=== PATIENT | female | born 2000 | race Hispanic/Latino ===

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

== ENCOUNTER 2021-04-18 20:17 | Emergency (ER) | payer SELFPAY ==
[2021-04-18 21:32] LABS: Urine Blood Negative (Negative); Urine Glucose Negative (Negative); Urine Protein Negative (Negative); Urine Specific Gravity 1.015 (1.005-1.030)
[2021-04-18] MEDS ORDERED: NA CHLORIDE 0.9% 1,000 ML ONE (22:03)
[2021-04-18] MEDS ORDERED: FAMOTIDINE 20 MG/2 ML VIAL IV ONE (22:03)
[2021-04-18] MEDS ORDERED: ONDANSETRON 4 MG/2 ML VIAL ONE (22:03)
[2021-04-18] MEDS ORDERED: MORPHINE 2 MG/ML SYR ONE (22:03)
[2021-04-18 22:20] LABS: Absolute Lymphocytes (CBC) 2.5 K/uL (0.7-4.9); Basophils % 0.5 % (0-1.3); Hematocrit 37.8 % (36.0-45.0); Lymphocytes % 23.8 % (15.3-44.8); MPV 9.2 fL (7.6-11.3); RBC Red Blood Cell Count 4.61 M/uL (3.86-4.86)
[2021-04-18 22:31] LABS: ALT/SGPT 26 U/L (12-78); AST/SGOT 13 U/L (15-37); Albumin 3.9 g/dL (3.4-5.0); Alkaline Phosphatase 63 U/L (45-117); BUN Blood Urea Nitrogen 9 mg/dL (7-18); Bicarbonate 28 mmol/L (21-32); Bilirubin Direct < 0.1 mg/dL (0-0.2); Bilirubin Total 0.3 mg/dL (0.2-1.0); Glucose Level 90 mg/dL (74-106); Lipase 58 U/L (73-393); Potassium 3.4 mmol/L (3.5-5.1); Protein, Total 8.4 g/dL (6.4-8.2); Sodium Level 142 mmol/L (136-145)
[2021-04-19 00:08] LABS: Urine Specific Gravity/Preg 1.015 (1.005-1.030)
--- NOTE | 2021-04-19 00:19 | ER ---
Nurse's Notes [facility] Name: Neva Reyes Age: 21 yrs Sex: Female : 2000 Arrival Date: 04/18/2021 Time: 20:18 Bed 23 Private MD: Diagnosis: Upper abdominal pain, unspecified;Ovarian Cyst;Proximal Phalanx Fracture, Left Second Toe Presentation: 04/18 20:34 Chief complaint: Patient states: mid and upper back pain x 3 days. Upper abdominal pain ca1 x 6 days. Headache and neck pain x 2 days, Denies injuries. Also wants 3rd digit of L foot checked, walked into a plastic container last night, now swelling and bruised. Coronavirus screen: Client denies travel out of the [place] in the last 14 days. headache, Client presents with at least one sign or symptom that may indicate coronavirus-19. Standard/surgical mask placed on the client. Provider contacted for isolation considerations. Ebola Screen: Patient negative for fever greater than or equal to 101.5 degrees Fahrenheit, and additional compatible Ebola Virus Disease symptoms Patient denies exposure to infectious person. Patient denies travel to an Ebola-affected area in the 21 days before illness onset. No symptoms or risks identified at this time. Initial Sepsis Screen: Does the patient meet any 2 criteria? No. Patient's initial sepsis screen is negative. Does the patient have a suspected source of infection? No. Patient's initial sepsis screen is negative. Risk Assessment: Do you want to hurt yourself or someone else? Patient reports no desire to harm self or others. Onset of symptoms was April 18, 2021. 20:34 Method Of Arrival: Ambulatory ca1 20:34 Acuity: HILDA 3 ca1 Triage Assessment: 04/19 00:34 General: Appears in no apparent distress. Behavior is calm, cooperative. 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 Flu vaccine is not up to date. - Social history:: Smoking status: Patient denies any tobacco usage or history of. Screenin:41 Abuse screen: Denies threats or abuse. Denies injuries from another. Nutritional iw screening: No deficits noted. Tuberculosis screening: No symptoms or risk factors identified. Fall Risk IV access (20 points). Assessment: 21:30 General: Appears in no apparent distress. Pain: Complains of pain in left foot and iw epigastric area. Neuro: Level of Consciousness is awake, alert, obeys commands, Oriented to person, place, time, situation, Moves all extremities. Full function. Cardiovascular: Patient's skin is warm and dry. Respiratory: Respiratory effort is even, unlabored, Respiratory pattern is regular, symmetrical. GI: Bowel sounds present X 4 quads. Abd is soft X 4 quads. Derm: Skin is intact, is healthy with good turgor. Musculoskeletal: Swelling present in left foot. 23:40 Reassessment: Patient appears in no apparent distress at this time. Patient and/or iw family updated on plan of care and expected duration. Pain level reassessed. Patient is alert, oriented x 3, equal unlabored respirations, skin warm/dry/pink. Patient states feeling better. Patient states symptoms have improved. Vital Signs: 20:34 BP 113 / 67; Pulse 90; Resp 16 S; Temp 97.5(TE); Pulse Ox 100% on R/A; Weight 90.72 kg ca1 (R); Height 5 ft. 3 in. (160.02 cm) (R); Pain 3/10; 20:34 Body Mass Index 35.43 (90.72 kg, 160.02 cm) ca1 ED Course: 20:18 Patient arrived in ED. am4 20:36 Triage completed. ca1 20:37 Arm band placed on left wrist. ca1 21:16 Brandi Benoit, RN is Primary Nurse. iw 21:17 Peter Bo MD is Attending Physician. mh7 21:30 Patient has correct armband on for positive identification. iw 22:14 Foot Left 3 View XRAY In Process Unspecified. EDMS 23:29 CT Abd/Pelvis - IV Contrast Only In Process Unspecified. EDMS 04/19 00:17 Joanne Luu MD is Referral Physician. mh7 00:17 Benito Jamil DPM is Referral Physician. 7 00:33 No provider procedures requiring assistance completed. IV discontinued, intact, iw bleeding controlled, No redness/swelling at site. Pressure dressing applied. Administered Medications: 04/18 21:45 Drug: NS 0.9% 1000 ml Route: IV; Rate: 1000 ml; Site: right antecubital; iw 21:45 Drug: Zofran (Ondansetron) 4 mg Route: IVP; Site: right antecubital; iw 22:00 Follow up: Response: No adverse reaction iw 21:50 Drug: morphine 2 mg Route: IVP; Site: right antecubital; iw 22:10 Follow up: Response: No adverse reaction; Pain is decreased iw 21:50 Drug: Pepcid (famotidine) 20 mg Route: IVP; Site: right antecubital; iw 22:00 Follow up: Response: No adverse reaction iw Outcome: 04/19 00:19 Discharge ordered by MD. menjivar 00:34 Patient left the ED. iw 00:34 Discharged to home ambulatory. iw 00:34 Condition: good 00:34 Discharge instructions given to patient, Instructed on discharge instructions, follow up and referral plans. medication usage, Demonstrated understanding of instructions, follow-up care, medications, Prescriptions given X 4. Signatures: Dispatcher [employer] Brandi Carmen RN RN Evonne Medeiros RN RN ca1 Peter Bo MD MD Audra Baird [facility]
--- NOTE | 2021-04-19 00:19 | EDPHYS ---
Physician Documentation [facility] Name: Neva Reyes Age: 21 yrs Sex: Female : 2000 Arrival Date: 04/18/2021 Time: 20:18 Bed 23 Private MD: ED Physician Peter Bo HPI: 04/18 22:56 This 21 yrs old Female presents to ER via Ambulatory with complaints of mh7 Abdominal Pain, Back Pain, Headache. 22:58 The patient presents with abdominal pain in the epigastric area, in the left lower mh7 quadrant. Onset: The symptoms/episode began/occurred 6 day(s) ago. The symptoms radiate to the right flank. 22:59 Associated signs and symptoms: Pertinent positives: diarrhea, headache, nausea, mh7 Pertinent negatives: anorexia, blood in stools, chest pain, constipation, fever, hematuria, palpitations, shortness of breath, vaginal discharge, vomiting, vomiting blood. The symptoms are described as intermittent, vague, waxing/waning. Modifying factors: The symptoms are alleviated by nothing, the symptoms are aggravated by nothing. Severity of pain: At its worst the pain was moderate 3 day(s) ago, in the emergency department the pain has improved moderately. States symptoms started about 6 days ago. Abdominal pain, nausea, back pain, headaches. Headache have resolved and most of back pain.. 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 Flu vaccine is not up to date. - Social history:: Smoking status: Patient denies any tobacco usage or history of. ROS: 22:59 Constitutional: Negative for fever, chills, and weight loss, Eyes: Negative for injury, mh7 pain, redness, and discharge, ENT: Negative for injury, pain, and discharge, Cardiovascular: Negative for chest pain, palpitations, and edema, Respiratory: Negative for shortness of breath, cough, wheezing, and pleuritic chest pain, : Negative for injury, bleeding, discharge, and swelling, Skin: Negative for injury, rash, and discoloration, Psych: Negative for depression, anxiety, suicide ideation, homicidal ideation, and hallucinations, Allergy/Immunology: Negative for hives, rash, and allergies, Endocrine: Negative for neck swelling, polydipsia, polyuria, polyphagia, and marked weight changes, Hematologic/Lymphatic: Negative for swollen nodes, abnormal bleeding, and unusual bruising. 22:59 MS/extremity: Positive for Left foot 2nd toe injury yesterday after accidentally hitting against furniture.. Exam: 22:59 Constitutional: This is a well developed, well nourished patient who is awake, alert, mh7 and in no acute distress. Head/Face: Normocephalic, atraumatic. Eyes: Pupils equal round and reactive to light, extra-ocular motions intact. Lids and lashes normal. Conjunctiva and sclera are non-icteric and not injected. Cornea within normal limits. Periorbital areas with no swelling, redness, or edema. ENT: Nares patent. No nasal discharge, no septal abnormalities noted. Tympanic membranes are normal and external auditory canals are clear. Oropharynx with no redness, swelling, or masses, exudates, or evidence of obstruction, uvula midline. Mucous membranes moist. Neck: Trachea midline, no thyromegaly or masses palpated, and no cervical lymphadenopathy. Supple, full range of motion without nuchal rigidity, or vertebral point tenderness. No Meningismus. Chest/axilla: Normal chest wall appearance and motion. Nontender with no deformity. No lesions are appreciated. Cardiovascular: Regular rate and rhythm with a normal S1 and S2. No gallops, murmurs, or rubs. Normal PMI, no JVD. No pulse deficits. Respiratory: Lungs have equal breath sounds bilaterally, clear to auscultation and percussion. No rales, rhonchi or wheezes noted. No increased work of breathing, no retractions or nasal flaring. 22:59 Skin: Warm, dry with normal turgor. Normal color with no rashes, no lesions, and no evidence of cellulitis. Neuro: Awake and alert, GCS 15, oriented to person, place, time, and situation. Cranial nerves II-XII grossly intact. Motor strength 5/5 in all extremities. Sensory grossly intact. Cerebellar exam normal. Normal gait. Psych: Awake, alert, with orientation to person, place and time. Behavior, mood, and affect are within normal limits. 22:59 Abdomen/GI: Inspection: abdomen appears normal, Bowel sounds: normal, in all quadrants, Palpation: moderate abdominal tenderness, in the epigastric area and left lower quadrant, mass, is not appreciated, rebound tenderness, is not appreciated, voluntary guarding, is not appreciated, involuntary guarding, is not appreciated, no appreciated organomegaly, Rectal exam: the exam is deferred, because of patient request, Indicators: McBurney's point is not tender, Freeman's sign is negative, Rovsing's sign is negative, Obturator sign is negative, Psoas sign is negative, Liver: no appreciated palpable abnormalities, Hernia: not appreciated. 22:59 Back: normal spinal alignment noted, CVA tenderness, that is mild, is noted on the right, muscle spasm, is not present. 22:59 Musculoskeletal/extremity: Extremities: noted in the left foot 2nd toe: ecchymosis, pain, swelling, tenderness, ROM: intact in all extremities, Circulation is intact in all extremities. Sensation intact. Compartment Syndrome exam of affected extremity: is normal. no numbness, no tingling, no sensation deficit, no palor, no weak pulses, Joints: All joints appear normal with full range of motion. Weight bearing: able to fully bear weight, without difficulty, Tendon exam: specific tendon testing normal through active and passive range of motion Vital Signs: 20:34 BP 113 / 67; Pulse 90; Resp 16 S; Temp 97.5(TE); Pulse Ox 100% on R/A; Weight 90.72 kg ca1 (R); Height 5 ft. 3 in. (160.02 cm) (R); Pain 3/10; 20:34 Body Mass Index 35.43 (90.72 kg, 160.02 cm) ca1 MDM: 04/19 00:15 Differential diagnosis: bowel obstruction, diverticulitis, gastritis, gastroesophageal mh7 reflux disease, non-specific abd pain, Pyelonephritis, Ureterolithiasis, urinary tract infection. Data reviewed: vital signs, nurses notes, old medical records, lab test result(s), CBC, electrolytes, urinalysis, UPT: negative radiologic studies, CT scan. Data interpreted: Pulse oximetry: on room air is 100 %. Interpretation: normal. Counseling: I had a detailed discussion with the patient and/or guardian regarding: the historical points, exam findings, and any diagnostic results supporting the discharge/admit diagnosis, lab results, radiology results, the need for outpatient follow up, an cooper helper, an OB/Gyne specialist, to return to the emergency department if symptoms worsen or persist or if there are any questions or concerns that arise at home. Response to treatment: the patient's symptoms have resolved after treatment, the patient's blood pressure is in an acceptable range, mental status has returned to baseline, the patient no longer shows bradycardia, the patient is not short of breath, the patient is not tachycardic, the patient's pain is gone, the patient's temperature has normalized. 00:19 Patient medically screened. [facility] 04/18 21:31 Order name: Urine Dipstick-Ancillary; Complete Time: 21:35 [facility] 04/18 21:32 Order name: Urine --Ancillary (enter results) [facility] 04/18 21:33 Order name: Urine --Ancillary [facility] 04/18 21:36 Order name: Basic Metabolic Panel [facility] 04/18 21:36 Order name: CBC with Diff [facility] 04/18 21:36 Order name: Hepatic Function; Complete Time: 22:57 [facility] 04/18 21:36 Order name: Lipase; Complete Time: 22:57 [facility] 04/18 21:37 Order name: Foot Left 3 View XRAY [facility] 04/18 21:37 Order name: Basic Metabolic Panel; Complete Time: 22:57 [facility] 04/18 21:37 Order name: CBC with Automated Diff; Complete Time: 22:57 [facility] 04/18 22:57 Order name: CT Abd/Pelvis - IV Contrast Only [facility] 04/18 21:32 Order name: Urine Test (obtain specimen); Complete Time: 21:32 [facility] 04/18 21:36 Order name: IV Saline Lock; Complete Time: 22:02 [facility] 04/18 21:36 Order name: Labs collected and sent; Complete Time: 22:02 [facility] 04/19 00:06 Order name: Orthopedic shoe; Complete Time: 00:34 [facility] Administered Medications: 04/18 21:45 Drug: NS 0.9% 1000 ml Route: IV; Rate: 1000 ml; Site: right antecubital; iw 21:45 Drug: Zofran (Ondansetron) 4 mg Route: IVP; Site: right antecubital; iw 21:50 Drug: morphine 2 mg Route: IVP; Site: right antecubital; iw 21:50 Drug: Pepcid (famotidine) 20 mg Route: IVP; Site: right antecubital; iw Disposition: 04/19/21 00:19 Discharged to Home. Impression: Upper abdominal pain, unspecified, Ovarian Cyst, Proximal Phalanx Fracture, Left Second Toe. - Condition is Stable. - Discharge Instructions: Toe Fracture, [id number], Abdominal Pain, Adult, [id number]-[id number], Ovarian Cyst, [id number]. - Prescriptions for Zofran ODT 4 mg Oral tablet,disintegrating - place 1 tablet by TRANSLINGUAL route every 8 hours As needed; 6 tablet. Bentyl 20 mg Oral Tablet - take 1 tablet by ORAL route every 6 hours As needed; 20 tablet. Ibuprofen 800 mg Oral Tablet - take 1 tablet by ORAL route every 8 hours As needed take with food; 15 tablet. Tylenol- Codeine #3 300-30 mg Oral Tablet - take 2 tablets by ORAL route every 6 hours As needed; 20 tablet. - Medication Reconciliation Form, Thank You Letter, Antibiotic Education, Prescription Opioid Use form. - Follow up: Private Physician; When: 1 - 2 days; Reason: Worsening of condition, Recheck today's complaints, Continuance of care, Re-evaluation by your physician. Follow up: Joanne Luu MD; When: 1 - 2 days; Reason: Worsening of condition, Recheck today's complaints. Follow up: Benito Jamil DPM; When: 1 - 2 days; Reason: Worsening of condition, Recheck today's complaints. - Problem is new. - Symptoms have improved. Signatures: Dispatcher [employer] EDBrandi Mcallister RN RN iw Mala, SUSY Douglass RN ca1 Peter Bo MD MD mh7 Trim, Aurelio tt3 Corrections: (The following items were deleted from the chart) 04/19 00:34 00:19 04/19/2021 00:19 Discharged to Home. Impression: Upper abdominal pain, iw unspecified; Ovarian Cyst; Proximal Phalanx Fracture, Left Second Toe. Condition is Stable. Forms are Medication Reconciliation Form, Thank You Letter, Antibiotic Education, Prescription Opioid Use. Follow up: Private Physician; When: 1 - 2 days; Reason: Worsening of condition, Recheck today's complaints, Continuance of care, Re-evaluation by your physician. Follow up: Joanne Luu; When: 1 - 2 days; Reason: Worsening of condition, Recheck today's complaints. Follow up: Benito Jamil; When: 1 - 2 days; Reason: Worsening of condition, Recheck today's complaints. Problem is new. Symptoms have improved. mh7
[2021-04-19 00:48] VITALS: BP 113/67; TEMP 97.5; O2SAT 100
--- NOTE | 2021-04-19 08:55 | RAD REPORT ---
EXAM DESCRIPTION: RAD - Foot Left 3 View - 04/18/2021 10:14 pm CLINICAL HISTORY: traumaleft foot pain COMPARISON: No comparisons FINDINGS: An oblique fracture is present involving the head and distal shaft of the second proximal phalanx. No measurable distraction or angulation component. The remaining phalanges show no acute finding. Remainder the foot also without acute finding. No air or foreign body in the soft tissues. IMPRESSION: Fracture of the second proximal phalanx left foot as detailed.
--- NOTE | 2021-04-20 11:31 | RAD REPORT ---
EXAM DESCRIPTION: CT - Abdomen Pelvis W Contrast - 04/19/2021 3:21 am CLINICAL HISTORY: The patient is 21 years old and is Female; Abd pain;Flank pain TECHNIQUE: Axial computed tomography images of the abdomen and pelvis with intravenous contrast. S agittal and coronal reformatted images were created and reviewed. This CT exam was performed using one or more of the following dose reduction techniques: automated exposure control, adjustment of t he mA and/or kV according to patient size, and/or use of iterative reconstruction technique. DLP: 1033 mGy*cm COMPARISON: CT abdomen and pelvis dated December 28, 2020. FINDINGS: LUNG BASES: Lung bases are clear. HEART: Visualized heart is normal. ABDOMEN: LIVER: Unremarkable. No mass. GALLBLADDER AND BILE DUCTS: Unremarkable. No calcified stones. No ductal dilation. PANCREAS: Unremarkable. No mass. No ductal dilation. SPLEEN: Unremarkable. No splenomegaly. ADRENALS: Unremarkable. No mass. KIDNEYS AND URETERS: Unremarkable. No solid mass. No hydronephrosis. STOMACH AND BOWEL: Unremarkable. No obstruction. No mucosal thickening. PELVIS: APPENDIX: The appendix is seen and is within normal limits. BLADDER: Bladder is decompressed. REPRODUCTIVE: Unremarkable as visualized. ABDOMEN and PELVIS: INTRAPERITONEAL SPACE: Left ovarian cyst measuring approximately 5.2 cm. Small amount of free pelvi c fluid. No free air. BONES/JOINTS: No acute fracture. No dislocation. SOFT TISSUES: Unremarkable. VASCULATURE: Unremarkable. No abdominal aortic aneurysm. LYMPH NODES: Unremarkable. No enlarged lymph nodes. IMPRESSION: 1. No acute abdominal abnormality. 2. Left ovarian cyst measuring approximately 5.2 cm which was present on prior exam. Small amount of free pelvic fluid. Recommend follow-up pelvic US in 6-12 weeks. Reference: J Am Ladonna Radiol 2013; 10:675-681. Electronically signed by: Anthony Mccormack DO 04/18/2021 11:39 PM CDT Due to temporary technical issues with the PACS/Fluency reporting system, reports are being signed by the in house radiologists without review as a courtesy to insure prompt reporting. The interpreting radiologist is fully responsible for the content of the report.
== END 2021-04-19 00:34 | disposition home or self-care (01) ==
LOC: ER 20:17
DX: N83.209 Unspecified ovarian cyst, unspecified side (principal); S92.512A Displaced fracture of proximal phalanx of left lesser toe(s), initial encounter for closed fracture; W22.03XA Walked into furniture, initial encounter
CPT/HCPCS: 36415; 74177; 80048; 80076; 81003; 81025; 83690; 85025; 96374; 96375; 99283; J2270; J2405; J7030; Q9967

== ENCOUNTER 2021-07-16 13:28 | Emergency (ER) | payer SELFPAY ==
--- OUTSIDE RECORDS SUMMARY | 2021-07-16 13:30 | XMS REPORT | Continuity of Care Document ---
:2000 Author Organization [facility] t Address [facility] [place] [id number] Care Team Providers Name Role Phone Unavailable Unavailable Unavailable Problems This patient has no known problems. Allergies, Adverse Reactions, Alerts This patient has no known allergies or adverse reactions. Medications This patient has no known medications. Procedures This patient has no known procedures. Results This patient has no known results.
[2021-07-16 14:56] LABS: Urine Blood Negative (Negative); Urine Glucose Negative (Negative); Urine Protein Negative (Negative); Urine Specific Gravity 1.015 (1.005-1.030)
[2021-07-16 15:31] LABS: Absolute Lymphocytes (CBC) 1.8 K/uL (0.7-4.9); Basophils % 0.3 % (0-1.3); Hematocrit 41.1 % (36.0-45.0); Lymphocytes % 37.9 % (15.3-44.8); MPV 8.4 fL (7.6-11.3)
[2021-07-16 15:54] LABS: ALT/SGPT 25 U/L (12-78); AST/SGOT 15 U/L (15-37); Albumin 3.6 g/dL (3.4-5.0); Alkaline Phosphatase 54 U/L (45-117); BUN Blood Urea Nitrogen 8 mg/dL (7-18); Bicarbonate 31 mmol/L (21-32); Bilirubin Direct 0.1 mg/dL (0-0.2); Bilirubin Total 0.3 mg/dL (0.2-1.0); Glucose Level 83 mg/dL (74-106); Lipase 103 U/L (73-393); Potassium 3.6 mmol/L (3.5-5.1); Protein, Total 7.8 g/dL (6.4-8.2); Sodium Level 142 mmol/L (136-145)
[2021-07-16] MEDS ORDERED: FAMOTIDINE 20 MG/2 ML VIAL IV ONE (15:56)
[2021-07-16] MEDS ORDERED: NA CHLORIDE 0.9% 500 ML ONE (15:56)
--- NOTE | 2021-07-16 15:58 | EDPHYS ---
Physician Documentation [facility] Name: Neva Reyes Age: 21 yrs Sex: Female : 2000 Arrival Date: 07/16/2021 Time: 13:32 Bed DIS3 Private MD: ED Physician Loco Lopez HPI: 07/16 15:25 This 21 yrs old Female presents to ER via Ambulatory with complaints of alysia Abdominal Pain, Nausea. 15:25 The patient presents to the emergency department with nausea, that is mild. Onset: The alysia symptoms/episode began/occurred 3 day(s) ago. Possible causes: unknown. The symptoms are aggravated by nothing. The symptoms are alleviated by nothing. Associated signs and symptoms: The patient has no apparent associated signs or symptoms. Severity of symptoms: At their worst the symptoms were moderate in the emergency department the symptoms are unchanged. The patient has not experienced similar symptoms in the past. 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 - Social history:: Smoking status: Patient denies any tobacco usage or history of. ROS: 15:25 Constitutional: Negative for fever, chills, and weight loss, Eyes: Negative for injury, alysia pain, redness, and discharge, ENT: Negative for injury, pain, and discharge, Neck: Negative for injury, pain, and swelling, Cardiovascular: Negative for chest pain, palpitations, and edema, Respiratory: Negative for shortness of breath, cough, wheezing, and pleuritic chest pain, Back: Negative for injury and pain, : Negative for injury, bleeding, discharge, and swelling, MS/Extremity: Negative for injury and deformity, Skin: Negative for injury, rash, and discoloration, Neuro: Negative for headache, weakness, numbness, tingling, and seizure, Psych: Negative for depression, anxiety, suicide ideation, homicidal ideation, and hallucinations, Allergy/Immunology: Negative for hives, rash, and allergies, Endocrine: Negative for neck swelling, polydipsia, polyuria, polyphagia, and marked weight changes, Hematologic/Lymphatic: Negative for swollen nodes, abnormal bleeding, and unusual bruising. 15:25 Abdomen/GI: Positive for abdominal pain, nausea, of the right upper quadrant and abdomen diffusely. Exam: 15:25 Constitutional: This is a well developed, well nourished patient who is awake, alert, alysia and in no acute distress. Head/Face: Normocephalic, atraumatic. Eyes: Pupils equal round and reactive to light, extra-ocular motions intact. Lids and lashes normal. Conjunctiva and sclera are non-icteric and not injected. Cornea within normal limits. Periorbital areas with no swelling, redness, or edema. ENT: Nares patent. No nasal discharge, no septal abnormalities noted. Tympanic membranes are normal and external auditory canals are clear. Oropharynx with no redness, swelling, or masses, exudates, or evidence of obstruction, uvula midline. Mucous membranes moist. Neck: Trachea midline, no thyromegaly or masses palpated, and no cervical lymphadenopathy. Supple, full range of motion without nuchal rigidity, or vertebral point tenderness. No Meningismus. Chest/axilla: Normal chest wall appearance and motion. Nontender with no deformity. No lesions are appreciated. Cardiovascular: Regular rate and rhythm with a normal S1 and S2. No gallops, murmurs, or rubs. Normal PMI, no JVD. No pulse deficits. Respiratory: Lungs have equal breath sounds bilaterally, clear to auscultation and percussion. No rales, rhonchi or wheezes noted. No increased work of breathing, no retractions or nasal flaring. Abdomen/GI: Soft, non-tender, with normal bowel sounds. No distension or tympany. No guarding or rebound. No evidence of tenderness throughout. Back: No spinal tenderness. No costovertebral tenderness. Full range of motion. Skin: Warm, dry with normal turgor. Normal color with no rashes, no lesions, and no evidence of cellulitis. MS/ Extremity: Pulses equal, no cyanosis. Neurovascular intact. Full, normal range of motion. Neuro: Awake and alert, GCS 15, oriented to person, place, time, and situation. Cranial nerves II-XII grossly intact. Motor strength 5/5 in all extremities. Sensory grossly intact. Cerebellar exam normal. Normal gait. Psych: Awake, alert, with orientation to person, place and time. Behavior, mood, and affect are within normal limits. Vital Signs: 13:45 BP 106 / 59; Pulse 79; Resp 16; Temp 97; Pulse Ox 99% ; Weight 93.89 kg; Height 5 ft. 3 sv in. (160.02 cm); 13:45 Body Mass Index 36.67 (93.89 kg, 160.02 cm) sv MDM: 14:40 Patient medically screened. [facility] 15:26 Differential diagnosis: Nonspecific abd pain, gastritis. Data reviewed: vital signs, [facility] nurses notes, lab test result(s), EKG, radiologic studies, plain films. 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 rate is 79 beats/min, rhythm is regular, Pulse oximetry: on room air is 99 %. Test interpretation: by ED physician or midlevel provider:. Counseling: I had a detailed discussion with the patient and/or guardian regarding: the historical points, exam findings, and any diagnostic results supporting the discharge/admit diagnosis, lab results. 07/16 14:41 Order name: Basic Metabolic Panel; Complete Time: 15:57 [facility] 07/16 14:41 Order name: CBC with Diff; Complete Time: 15:41 [facility] 07/16 14:41 Order name: Hepatic Function; Complete Time: 15:57 [facility] 07/16 14:41 Order name: Lipase; Complete Time: 15:57 [facility] 07/16 14:56 Order name: Urine Dipstick-Ancillary [facility] 07/16 14:58 Order name: Urine --Ancillary (enter results) [facility] 07/16 14:41 Order name: IV Saline Lock; Complete Time: 15:15 [facility] 07/16 14:41 Order name: Labs collected and sent; Complete Time: 14:57 [facility] 07/16 14:41 Order name: Urine Dipstick-Ancillary (obtain specimen); Complete Time: 15:15 [facility] 07/16 14:41 Order name: Urine Test (obtain specimen); Complete Time: 14:57 [facility] Administered Medications: 15:37 Drug: NS 0.9% 500 ml Route: IV; Rate: bolus; Site: right antecubital; zb 16:00 Follow up: Response: No adverse reaction; IV Status: Completed infusion; IV Intake: zb 500ml 15:37 Drug: Pepcid (famotidine) 20 mg Route: IVP; Site: right antecubital; zb 16:00 Follow up: Response: No adverse reaction zb Disposition Summary: 07/16/21 15:57 Discharge Ordered Location: Home [facility] Problem: new alysia Symptoms: have improved alysia Condition: Stable alysia Diagnosis - Functional dyspepsia alysia - Generalized anxiety disorder alysia Followup: alysia - With: Private Physician - When: 2 - 3 days - Reason: Recheck today's complaints, Continuance of care, Re-evaluation by your physician Followup: alysia - With: - When: 2 - 3 days - Reason: Recheck today's complaints, Re-evaluation by your physician Discharge Instructions: - Discharge Summary Sheet alysia - Gastritis, Adult alysia - Gastritis, Adult, [id number] alysia - Generalized Anxiety Disorder, Adult [facility] Forms: - Medication Reconciliation Form alysia - Thank You Letter alysia - Antibiotic Education [facility] - Prescription Opioid Use [facility] Prescriptions: - Hydroxyzine HCl 25 mg Oral Tablet - take 1 tablet by ORAL route every 6 hours As needed; 30 tablet; Refills: 0, [facility] Product Selection Permitted - Pepcid 20 mg Oral Tablet - take 1 tablet by ORAL route every 12 hours for 15 days; 30 tablet; Refills: 0, [facility] Product Selection Permitted Signatures: Dispatcher [employer] Karin Vasquez, Loco Obando RN, MD MD cha Brown, Zipporah, RN RN zb
--- NOTE | 2021-07-16 15:58 | ER ---
Nurse's Notes [facility] Name: Neva Reyes Age: 21 yrs Sex: Female : 2000 Arrival Date: 07/16/2021 Time: 13:32 Bed DIS3 Private MD: Diagnosis: Functional dyspepsia;Generalized anxiety disorder Presentation: 07/16 13:44 Chief complaint: Patient states: n/d, and anxiety x 2 days. "I think my stomach hurts sv because I have nervous stomach.". Coronavirus screen: Client denies travel out of the [place] in the last 14 days. At this time, the client does not indicate any symptoms associated with coronavirus-19. Ebola Screen: No symptoms or risks identified at this time. 13:44 Method Of Arrival: Ambulatory sv 13:45 Initial Sepsis Screen: Does the patient meet any 2 criteria? No. Patient's initial sv sepsis screen is negative. Does the patient have a suspected source of infection? No. Patient's initial sepsis screen is negative. Risk Assessment: Do you want to hurt yourself or someone else? Patient reports no desire to harm self or others. Onset of symptoms was July 14, 2021. 13:45 Acuity: HILDA 3 sv Triage Assessment: 13:47 General: Appears in no apparent distress. uncomfortable, Behavior is calm, cooperative, sv appropriate for age. Pain: Complains of pain in abdomen. Neuro: Level of Consciousness is awake, alert, obeys commands, Gait is steady. Respiratory: Respiratory effort is even, unlabored. 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 - Social history:: Smoking status: Patient denies any tobacco usage or history of. Screenin:19 Abuse screen: Denies threats or abuse. Denies injuries from another. Nutritional zb screening: No deficits noted. Tuberculosis screening: No symptoms or risk factors identified. Fall Risk None identified. Assessment: 15:16 General: Appears in no apparent distress. Behavior is calm, cooperative, anxious. Pain: zb Denies pain. Neuro: Level of Consciousness is awake, alert, obeys commands, Oriented to person, place, time. Cardiovascular: Patient's skin is warm and dry. Respiratory: Airway is patent Respiratory effort is even, unlabored, Respiratory pattern is regular, symmetrical. GI: Abdomen is round Bowel sounds present X 4 quads. Abd is soft and non tender X 4 quads. Parent/caregiver reports the patient having diarrhea. : Urine is clear, Patient is sexually active Method of control is none. Derm: Skin is intact, is healthy with good turgor. Musculoskeletal: Range of motion:. Vital Signs: 13:45 BP 106 / 59; Pulse 79; Resp 16; Temp 97; Pulse Ox 99% ; Weight 93.89 kg; Height 5 ft. 3 sv in. (160.02 cm); 13:45 Body Mass Index 36.67 (93.89 kg, 160.02 cm) sv ED Course: 13:32 Patient arrived in ED. am2 13:44 Arm band placed on. sv 13:47 Triage completed. sv 14:40 Loco Lopez MD is Attending Physician. alysia 14:41 Paulette Bob RN is Primary Nurse. zb 15:00 No provider procedures requiring assistance completed. zb 15:19 Patient has correct armband on for positive identification. Bed in low position. Call zb light in reach. Pulse ox on. NIBP on. 15:19 Initial lab(s) drawn, by me, sent to lab. Inserted saline lock: 20 gauge in right zb antecubital area, using aseptic technique. Blood collected. 15:57 Ainsley Ackerman MD is Referral Physician. alysia 16:04 IV discontinued, intact, bleeding controlled, No redness/swelling at site. ld1 Administered Medications: 15:37 Drug: NS 0.9% 500 ml Route: IV; Rate: bolus; Site: right antecubital; zb 16:00 Follow up: Response: No adverse reaction; IV Status: Completed infusion; IV Intake: zb 500ml 15:37 Drug: Pepcid (famotidine) 20 mg Route: IVP; Site: right antecubital; zb 16:00 Follow up: Response: No adverse reaction zb Intake: 16:00 IV: 500ml; Total: 500ml. zb Outcome: 15:57 Discharge ordered by . alysia 16:04 Discharged to home ambulatory. ld1 16:04 Condition: stable 16:04 Discharge instructions given to patient, Instructed on discharge instructions, follow up and referral plans. medication usage, Demonstrated understanding of instructions, follow-up care, medications, Prescriptions given X 2. 16:05 Patient left the ED. ld1 Signatures: Karin Byrne RN RN Loco Polo MD MD cha Moreno, Amanda am2 Brown, Zipporah, RN RN zb Liya Marte RN RN ld1 Corrections: (The following items were deleted from the chart) 13:48 13:44 Chief complaint: Patient states: n/d, and anxiety x 2 days sv sv 13:48 13:45 Acuity: HILDA 4 sv sv 15:37 15:37 NS 0.9% 500 ml IV at bolus in left antecubital zb zb
[2021-07-16 16:10] VITALS: BP 106/59; TEMP 97; O2SAT 99
[2021-07-16 17:24] LABS: Urine Specific Gravity/Preg 1.015 (1.005-1.030)
== END 2021-07-16 16:05 | disposition home or self-care (01) ==
LOC: ER 13:28
DX: K30 Functional dyspepsia (principal); F41.1 Generalized anxiety disorder
CPT/HCPCS: 36415; 80048; 80076; 81003; 81025; 83690; 85025; 96374; 99284; J7040

== ENCOUNTER 2021-09-11 09:10 | Emergency (ER) | payer SELFPAY ==
--- NOTE | 2021-09-11 10:28 | EDPHYS ---
Physician Documentation [facility] [place] Name: Neva Reyes Age: 21 yrs Sex: Female : 2000 Arrival Date: 09/11/2021 Time: 09:13 Bed Treatment Private MD: ED Physician Loco Lopez HPI: 09/11 10:25 This 21 yrs old Female presents to ER via Ambulatory with complaints of Bloody cp Stools. 10:25 The patient presents to the emergency department with bleeding from the rectum/anus, cp that is mild. 10:25 Onset: The symptoms/episode began/occurred yesterday. Context: the patient with bowel cp movement. Associate signs and symptoms: Pertinent negatives: abdominal pain, constipation, diarrhea, dysuria, fever, vomiting. Patient reports noticing small amount of red blood in toilet and when she wiped with painless bowel movement yesterday. Patient reports no blood with bowel movement today. 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 - Social history:: Smoking status: Patient denies any tobacco usage or history of. ROS: 10:25 : Positive for blood in stool. cp 10:25 Constitutional: Negative for body aches, chills, fever. cp 10:25 Abdomen/GI: Negative for abdominal pain. 10:25 Neuro: Negative for headache, weakness. 10:25 All other systems are negative. Exam: 10:27 Constitutional: The patient appears in no acute distress, alert, awake, non-toxic, well cp developed, well nourished, obese. 10:27 Head/Face: Normocephalic, atraumatic. cp 10:27 Eyes: Periorbital structures: appear normal, Conjunctiva: normal, no exudate, no injection, Sclera: no appreciated abnormality, Lids and lashes: appear normal, bilaterally. 10:27 ENT: External ear(s): are unremarkable, Nose: is normal, Mouth: Lips: moist, Oral mucosa: moist, Posterior pharynx: Airway: no evidence of obstruction, patent. 10:27 Chest/axilla: Inspection: normal. 10:27 Cardiovascular: Rate: normal. 10:27 Respiratory: the patient does not display signs of respiratory distress, Respirations: normal, no use of accessory muscles, no retractions, labored breathing, is not present. 10:27 Abdomen/GI: Inspection: abdomen appears normal, Palpation: abdomen is soft and non-tender, in all quadrants, Rectal exam: rectal tone normal, Stool: brown, guaiac negative, hemorrhoid(s), are not appreciated, tenderness, is not appreciated, the exam is chaperoned by the nurse. Vital Signs: 09:20 Pulse 82; Resp 14; Pulse Ox 100% ; Weight 90.72 kg; Height 5 ft. 3 in. (160.02 cm); ss Pain 0/10; 09:21 BP 103 / 66; Temp 98.7(O); ss 09:20 Body Mass Index 35.43 (90.72 kg, 160.02 cm) MDM: 09:32 Patient medically screened. [facility] 10:28 Data reviewed: vital signs, nurses notes, and as a result, I will discharge patient. cp Administered Medications: No medications were administered Disposition: 10:30 Chart complete. cp Disposition Summary: 09/11/21 10:28 Discharge Ordered Location: Home cp Problem: new cp Symptoms: have improved cp Condition: Stable cp Diagnosis - Encounter for screening, unspecified cp Followup: cp - With: Edmar Ratliff MD - When: 2 - 3 days - Reason: Recheck today's complaints Discharge Instructions: - Discharge Summary Sheet cp Forms: - Medication Reconciliation Form cp - Thank You Letter cp - Antibiotic Education cp - Prescription Opioid Use cp Addendum: 09/14/2021 10:22 Co-signature as Attending Physician, Loco Lopez MD I agree with the assessment and c delarosa plan of care. Signatures: Loco Lopez MD MD cha Smirch, Shelby RN RN Loco Herron PA PA cp
--- NOTE | 2021-09-11 10:28 | ER ---
Nurse's Notes [facility] [place] [facility] Name: Neva Reyes Age: 21 yrs Sex: Female : 2000 Arrival Date: 09/11/2021 Time: 09:13 Bed Treatment Private MD: Diagnosis: Encounter for screening, unspecified Presentation: 09/11 09:20 Chief complaint: Patient states: "I had a little bit of blood in my stool yesterday. I ss only noticed it on the toilet paper." Pt reports she did have a BM this morning with no blood. Coronavirus screen: Client denies travel out of the [place] in the last 14 days. Ebola Screen: Patient denies exposure to infectious person. Patient denies travel to an Ebola-affected area in the 21 days before illness onset. Initial Sepsis Screen: Does the patient meet any 2 criteria? No. Patient's initial sepsis screen is negative. Does the patient have a suspected source of infection? No. Patient's initial sepsis screen is negative. Risk Assessment: Do you want to hurt yourself or someone else? Patient reports no desire to harm self or others. Onset of symptoms was September 10, 2021. 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 - Social history:: Smoking status: Patient denies any tobacco usage or history of. Vital Signs: 09:20 Pulse 82; Resp 14; Pulse Ox 100% ; Weight 90.72 kg; Height 5 ft. 3 in. (160.02 cm); ss Pain 0/10; 09:21 BP 103 / 66; Temp 98.7(O); ss 09:20 Body Mass Index 35.43 (90.72 kg, 160.02 cm) ED Course: 09:13 Patient arrived in ED. as 09:21 Triage completed. ss 09:21 Arm band placed on right wrist. 09:28 Lcoo Herron PA is PHCP. cp 09:28 Loco Lopez MD is Attending Physician. cp 10:27 Edmar Ratliff MD is Referral Physician. cp Administered Medications: No medications were administered Outcome: : Discharge ordered by . cp 11:13 Patient left the ED. eb Signatures: Rizwana Barone Shelby, RN RN ss Loco Herron PA PA cp Kristie Savage
[2021-09-11 11:17] VITALS: O2SAT 100
[2021-09-11 11:18] VITALS: BP 103/66; TEMP 98.7
== END 2021-09-11 11:13 | disposition home or self-care (01) ==
LOC: ER 09:10
DX: K62.5 Hemorrhage of anus and rectum (principal)
CPT/HCPCS: 99281

== ENCOUNTER 2022-04-28 18:12 | Emergency (ER) | payer OTHER ==
--- OUTSIDE RECORDS SUMMARY | 2022-04-28 18:16 | XMS REPORT | Continuity of Care Document ---
:2000 Author Organization [facility] t Address [facility] [place] [address] Care Team Providers Name Role Phone Pcp, Does Not Have A Primary Care Physician Christine DODSON Attending Clinician Unavailable Sarah JAIN Attending Clinician Unavailable Christine Corey Attending Clinician Ultrasound Attending Clinician Unavailable Kan DUKE M Attending Clinician Alana THOMSON Attending Clinician Unavailable Alana THOMSON Attending Clinician Unavailable Doctor Unassigned, Name Attending Clinician Unavailable Aga LOPEZ Attending Clinician Unavailable Khari CARPENTER Attending Clinician Unavailable Catracho DUKE L Attending Clinician Payers Payer Name Policy Type Policy Number Effective Date Expiration Date S ource [place]ICA[place] [id number] 2022 00:00:00 Problems Condition Condition Condition Status Onset Resolution Last Treating Co mments Source Name Details Category Date Date Treatment Clinician Date Supervisio Supervisio Disease Active U filemon n of n of 4-29 [place] of [place] [facility] Nausea and Nausea and Disease Active U filemon vomiting vomiting 4-29 ity of during during 00:00: [place] 00 [facility] Obesity in Obesity in Disease Active U nivers 4-29 ity of 00:00: [address] Obesity Obesity Disease Active Univers (BMI (BMI 6-02 ity of 30-39.9) 30-39.9) 00:00: [place] 00 [facility] Allergies, Adverse Reactions, Alerts Allergy Allergy Status Severity Reaction(s) Onset Inactive Treating Comm ents Source Name Type Date Date Clinician SHRIMP DRUG Active Swelling Univers INGREDI -29 ity of 00:00: [place] 00 [facility] Shrimp Propensi Active Swelling Univer s ty to 03-19 ity of adverse 00:00: [place] reaction 00 Medical s Branch NO KNOWN Drug Active Univers ALLERGIE Class ity of S [facility] Social History Social Habit Start Date Stop Date Quantity Comments Source ASSERTION 2022-02-12 [facility] 00:00:00 [facility] Exposure to 2022-04-06 2022-04-16 Not sure [facility] SARS-CoV-2 00:00:00 16:12:00 [facility] (event) [place] Alcohol intake 2022-04-16 2022-04-16 Lif[facility] 00:00:00 00:00:00 non-drinker [facility] (finding) [place] Tobacco use and 2021-04-22 2021-04-22 Never used Universit y of exposure 00:00:00 00:00:00 [facility] Sex Assigned At [birth year] Universit y of 00:00:00 00:00:00 [facility] Smoking Status Start Date Stop Date Source Never smoker [facility] Medications Ordered Filled Start Stop Current Ordering Indication Dosage Frequency Signature Comments Components Source Medication Medication Date Date Medication? Clinician (SIG) Name Name kat Dimas, 2021- No Take by U filemon webber,rhm/B. 03-19 04-29 mouth. ity o f ani/cran 15:12: 00:00 [place] (UP4 38 :00 Medical PROBIOTICS Branch WOMEN'S ORAL) PNV 67-iron Yes [id number] 1{each} Take 1 Univers ps-folate 4-29 Each by ity of no.1-dha 00:00: mouth [place] (VITAFOL 00 daily. Medical ULTRA) 29 Branch mg iron- 1 mg-200 mg Cap proMETHazin Yes [id number] 25mg Take 1 Univers e 25 mg 4-29 tablet by ity of tablet 00:00: mouth [place] 00 every 6 Medical (six) Branch hours as needed for Nausea and Vomiting (N/V). PNV 67-iron 2022-0 Yes [id number] 1{each} Take 1 Univers ps-folate 4-29 Each by ity of no.1-dha 00:00: mouth [place] (VITAFOL 00 daily. Medical ULTRA) 29 Branch mg iron- 1 mg-200 mg Cap proMETHazin 2-0 Yes [id number] 25mg Take 1 Univers e 25 mg 4-29 tablet by ity of tablet 00:00: mouth [place] 00 every 6 Medical (six) Branch hours as needed for Nausea and Vomiting (N/V). PNV 67-iron 2021-0 Yes [id number] 1{each} Take 1 Univers ps-folate 4-29 Each by ity of no.1-dha 00:00: mouth [place] (VITAFOL 00 daily. Medical ULTRA) 29 Branch mg iron- 1 mg-200 mg Cap proMETHazin 2-0 Yes [id number] 25mg Take 1 Univers e 25 mg 4-29 tablet by ity of tablet 00:00: mouth [place] 00 every 6 Medical (six) Branch hours as needed for Nausea and Vomiting (N/V). PNV 67-iron 2021-0 Yes [id number] 1{each} Take 1 Univers ps-folate 4-29 Each by ity of no.1-dha 00:00: mouth [place] (VITAFOL 00 daily. Medical ULTRA) 29 Branch mg iron- 1 mg-200 mg Cap proMETHazin 2-0 Yes [id number] 25mg Take 1 Univers e 25 mg 4-29 tablet by ity of tablet 00:00: mouth [place] 00 every 6 Medical (six) Branch hours as needed for Nausea and Vomiting (N/V). PNV 67-iron 2022-0 Yes [id number] 1{each} Take 1 Univers ps-folate 4-29 Each by ity of no.1-dha 00:00: mouth [place] (VITAFOL 00 daily. Medical ULTRA) 29 Branch mg iron- 1 mg-200 mg Cap proMETHazin 2022-0 Yes [id number] 25mg Take 1 Univers e 25 mg 4-29 tablet by ity of tablet 00:00: mouth [place] 00 every 6 Medical (six) Branch hours as needed for Nausea and Vomiting (N/V). PNV 67-iron 2022-0 Yes [id number] 1{each} Take 1 Univers ps-folate 4-29 Each by ity of no.1-dha 00:00: mouth [place] (VITAFOL 00 daily. Medical ULTRA) 29 Branch mg iron- 1 mg-200 mg Cap proMETHazin Yes [id number] 25mg Take 1 Univers e 25 mg 4-29 tablet by ity of tablet 00:00: mouth [place] 00 every 6 Medical (six) Branch hours as needed for Nausea and Vomiting (N/V). L.acid,gas, Yes Take by Un loli plan,rhm/B. 6-02 mouth. ity of ani/cran 19:16: [place] (4 48 Medical PROBIOTICS [place] WOMEN'S ORAL) L.acid,gas, Yes Take by Un loli plan,rhm/B. 6- mouth. ity of ani/cran 19:16: [place] ([facility] 48 [facility] PROBIOTICS [place] WOMENS ORAL) Vital Signs Vital Name Observation Time Observation Value Comments Source Systolic blood 2022-04-16 21:12:00 113 mm[Hg] Univer sity [facility] Diastolic blood 2022-04-16 21:12:00 75 [facility]Hg] [facility] 2022-04-16 21:12:00 96 /min [facility] Body temperature 2022-04-16 21:12:00 36.56 Aicha [facility] Respiratory rate 2022-04-16 21:12:00 16 /min [facility] Body height 2022-04-16 21:12:00 160 cm [facility] Body weight 2022-04-16 21:12:00 96.48 kg [facility] BMI 2022-04-16 21:12:00 37.68 kg/m2 [facility] Systolic blood 2022-03-19 20:07:00 123 mm[Hg] Univer sity of [facility] Diastolic blood 2022-03-19 20:07:00 63 mm[Hg] [facility] rate 2022-03-19 20:07:00 95 /min [facility] Body temperature 2022-03-19 20:07:00 36.33 Aicha [facility] Respiratory rate 2022-03-19 20:07:00 20 /min Univ ersity [facility] Body height 2022-03-19 20:07:00 160 cm Universi ty of [facility] Body weight 2022-03-19 20:07:00 93.441 kg Universi ty of [facility] BMI 2022-03-19 20:07:00 36.49 kg/m2 Universi ty of [facility] Body height 2021-04-22 19:11:00 160 cm Universi ty of [facility] Body weight 2021-04-22 19:11:00 91.173 kg Universi ty [facility] BMI 2021-04-22 19:11:00 35.61 kg/m2 Universi ty [facility] Systolic blood 2021-04-22 19:11:00 112 mm[Hg] Univer sity of pressure [facility] Diastolic blood 2021-04-22 19:11:00 75 mm[Hg] Unive rsity of [facility] Heart rate 2021-04-22 19:11:00 123 /min [facility] Body temperature 2021-04-22 19:11:00 37.28 [facility] Res[facility] 2021-04-22 19:11:00 18 /min [facility] Procedures Procedure Date / Time Performed Performing Clinician Sour e POCT URINALYSIS 2022-04-16 21:13:00 Nereida Dodson [facility] REPORT OF 2022-03-24 05:01:00 [facility]igned, [facility] 2022-03-19 00:00:00 Nereida Dodson versruma [facility] POCT URINALYSIS W/O 2022-03-19 00:00:00 Nereida Dodson versity [facility] Encounters Start End Encounter Admission Attending Care Care Encounter Source Date/Time Date/Time Type Type Clinicians Facility Department ID 2022-05-14 2022-05-14 Outpatient R IVORY [facility] [id number] Univers 16:00:00 16:00:00 NEREIDA [id number] ruma o f [facility] 2022-04-28 2022-04-28 SHABANA Sandy [id number] Univers 00:00:00 00:00:00 Triage Cecile ECHAVARRIA 350.1.13.10 it y of HOSPITAL 4.2.7.2.686 Julio as [id number] [address] 2022-04-16 2022-04-16 Routine [place], [facility] [id number] Univers 15:30:00 15:45:00 Nereida King FIRER RETORT 350.1.13.10 ity of Visit REGIONAL 4.2.7.2.686 Julio as MATERNAL [id number] [facility] & [address] 2022-04-16 2022-04-16 [facility] [id number] Univers 15:30:00 15:30:00 NEREIDA [id number] ity o [facility] 2022-04-16 2022-04-16 Outpatient R [facility] [id number] Univers 15:30:00 15:30:00 NEREIDA ity o [facility] 2022-04-14 2022-04-14 Abstract [facility] [id number] Univers 00:00:00 00:00:00 Nereida King FIRER RETORT 350.1.13.10 ity of REGIONAL 4.2.7.2.686 Julio as MATERNAL [id number] [facility] & [address] 2022-04-09 2022-04-09 Sample Worker [facility] 1.2 .840.114 [id number] Univers 11:30:00 12:00:00 Visit Niurka Thomson FIRER RETORT 350.1.13.10 ity of REGIONAL 4.2.7.2.686 Julio as MATERNAL [id number] [facility] & CHILD [address] [place] [address] 2022-04-09 2022-04-09 Outpatient R [facility] [id number] Univers 11:30:00 11:30:00 [id number] ity of [facility] 2022-04-09 2022-04-09 Outpatient P [facility] [id number] Univers 11:30:00 [facility]30[facility]22-[facility] 2022-04-09 Outpatient P NIURKA THOMSON [facility] [id number] Univers 11:30:00 11:30:00 [facility] 2022-03-24 2022-03-24 Orders Doctor SHABANA [id number] Univers 00:00:00 00:00:00 Only Unassigned, JERICHO 350.1.13.10 ity of [place] [facility] 4.2.7.2.686 Julio as [id number] [address] 2022-03-19 2022-03-19 Outpatient R IVORY [facility] [id number] Univers 15:00:00 15:52:14 NEREIDA hendrix o [facility] 2022-03-19 2022-03-19 [facility] [id number] Univers 15:00:00 15:52:14 Nereida King FIRER RETORT 350.1.13.10 ity of Visit [facility] 4.2.7.2.686 Julio as MATERNAL [id number] [facility] ical & CHILD [address] [place] [address] 2022-03-19 2022-03-19 Outpatient R IVORY, [facility] [id number] Univers 15:00:00 15:00:00 NEREIDA [id number] katey o f [facility] 2022-03-10 2022-03-10 Outpatient R JOHN [facility] [id number] Univers 13:30:00 13:30:00 WILFREDO [id number] ity o f [facility] 2021-06-01 2021-06-01 Outpatient R CATRACHO, [facility] [id number] Univers 10:00:00 10:00:00 AUDREY [id number] [facility] 2021-06-01 2021-06-01 Outpatient R CATRACHO, [facility] [id number] Univers 00:00:00 00:00:00 AUDREY [facility] 2021-04-22 2021-04-22 Office Adum, [facility] 1.2.840.114 [id number] Univers 13:59:17 15:04:16 Visit Audrey Solis 350.1.13.10 [place] 4.2.7.2.686 Eunice Petersen [id number] Mn dical nal [address] [place] [address] 2021-04-22 2021-04-22 Outpatient R ADTAMANNA, [facility] [id number] Univers 14:00:00 14:00:00 [facility] Results Test Description Test Time Test Comments Results Result Comments Source POCT URINALYSIS W SPECIFIC GRAVITY 2022-04-16 21:13:00 Test Item Value Reference Range Interpretation Comme nts POCT U SP GRAV (test code = 3255) . 1.005-1.025 POCT PH U (test code = 3254) . 5-8 POCT U LEUK EST (test code = 3263) . Negative - Negative POCT U NIT (test code = 3262) . Negative - Negative POCT U PROT (test code = 3259) trace Negative - Negative POCT U GLU (test code = 3256) neg Negative - Negative POCT U KETONE (test code = 3258) . Negative - Negative POCT U UROBILI (test code = 3260) . 0.2-1 POCT U BILI (test code = 3261) . Negative - Negative POCT U BLD (test code = 3257) . Negative - Negative POCT U COLOR (test code = 3266) POCT U APPEAR (test code = 3267) [id number] 20:13:00 Test Item Value Reference Range Interpretation Comments POCT PREG (test code = 1605) Positive On board controls acceptable with C Yes Line (test code = 3574) POCT PREG LOT # (test code = 3575) POCT PREG TEST DATE (test code = 3576) [facility] W/O SPECIFIC [id number] 20:13:00 Test Item Value Reference Range Interpretation Comments POCT PH U (test code = 3254) 5 mg/dl 5-8 POCT U LEUK EST (test code = negative Negative - Negative 3263) POCT U NIT (test code = 3262) negative Negative - Negative POCT U PROT (test code = 3259) trace Negative - Negative POCT U GLU (test code = 3256) negative Negative - Negative POCT U KETONE (test code = 3258) negative Negative - Negative POCT U BLD (test code = 3257) negative Negative - Negative [facility]
--- NOTE | 2022-04-28 20:52 | EDPHYS ---
Physician Documentation [facility] Name: Neva Reyes Age: 22 yrs Sex: Female : 2000 Arrival Date: 04/28/2022 Time: 18:17 Bed 28 Private MD: ED Physician Seth Hand HPI: 04/28 19:00 This 22 yrs old Female presents to ER via Ambulatory with complaints of 12 wks cp , Sinus Congestion, Ear Pain. 19:00 The patient presents with sore throat. Onset: The symptoms/episode began/occurred 2 cp day(s) ago. 19:00 Associated signs and symptoms: Pertinent positives: cough, earache, sinus congestion, cp Pertinent negatives diarrhea, fever, vomiting. Patient reports she is approximately 12 weeks . Denies vaginal bleeding, denies vaginal discharge. 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 Flu vaccine status is unknown. - Social history:: Smoking status: Patient denies any tobacco usage or history of. ROS: 19:05 Constitutional: Negative for body aches, chills, fever, poor PO intake. cp 19:05 Eyes: Negative for injury, pain, redness, and discharge. cp 19:05 ENT: Positive for ear pain, sinus congestion, sore throat, Negative for drainage from ear(s), difficulty swallowing, difficulty handling secretions. 19:05 Neck: Negative for pain with movement, pain at rest, stiffness. 19:05 Respiratory: Positive for cough, Negative for shortness of breath, wheezing. 19:05 Abdomen/GI: Negative for abdominal pain, vomiting, diarrhea, constipation. 19:05 : Negative for urinary symptoms, pelvic pain, vaginal bleeding. 19:05 Skin: Negative for rash. 19:05 Neuro: Positive for headache, Negative for altered mental status, weakness. 19:05 All other systems are negative. Exam: 19:10 Head/Face: Normocephalic, atraumatic. cp 19:10 Constitutional: The patient appears in no acute distress, alert, awake, non-toxic, well developed, well nourished. 19:10 Eyes: Periorbital structures: appear normal, Conjunctiva: normal, no exudate, no injection, Sclera: no appreciated abnormality, Lids and lashes: appear normal, bilaterally. 19:10 ENT: External ear(s): are unremarkable, Ear canal(s): are normal, clear, TM's: bulging, is not appreciated, bilaterally, erythema, that is mild, bilaterally, Nose: is normal, Mouth: Lips: moist, Oral mucosa: moist, Posterior pharynx: Airway: no evidence of obstruction, patent, Tonsils: no enlargement, no exudate, Uvula: midline, swelling, is not appreciated, erythema, that is mild, exudate, is not appreciated. 19:10 Neck: ROM/movement: is normal, is supple, without pain, no range of motions limitations, no meningismus, Lymph nodes: no appreciated lymphadenopathy. 19:10 Chest/axilla: Inspection: normal. 19:10 Cardiovascular: Rate: tachycardic, Rhythm: regular. 19:10 Respiratory: the patient does not display signs of respiratory distress, Respirations: normal, no use of accessory muscles, no retractions, Breath sounds: decreased breath sounds, are not appreciated, stridor, is not appreciated, + upper airway congestion. wheezing: is not appreciated. 19:10 Abdomen/GI: Exam negative for discomfort, distension, guarding, Inspection: abdomen appears normal. Vital Signs: 18:23 BP 123 / 67; Pulse 117; Resp 17; Temp 98.3; Pulse Ox 98% ; Weight 90.72 kg; Height 5 ll1 ft. 3 in. (160.02 cm); Pain 6/10; 20:59 BP 126 / 72; Pulse 106; Resp 18; Pulse Ox 99% on R/A; ld1 18:23 Body Mass Index 35.43 (90.72 kg, 160.02 cm) ll1 MDM: 20:50 Data reviewed: vital signs, nurses notes, lab test result(s), and as a result, I will cp discharge patient. 20:50 Differential diagnosis: group A strep tonsillitis, influenza, peritonsillar abscess cp pharyngitis. Counseling: I had a detailed discussion with the patient and/or guardian regarding: the historical points, exam findings, and any diagnostic results supporting the discharge/admit diagnosis, lab results, the need for outpatient follow up, an OB/Gyne specialist, to return to the emergency department if symptoms worsen or persist or if there are any questions or concerns that arise at home. 20:51 Patient medically screened. cp 04/28 18:41 Order name: Influenza Screen (a \T\ B); Complete Time: 20:51 cp 04/28 18:41 Order name: Strep; Complete Time: 19:39 cp 04/28 19:39 Interpretation: Reviewed. cp 04/28 18:43 Order name: Influenza Screen (A ; Complete Time: 19:39 EDMS 04/28 19:39 Interpretation: Reviewed. cp 04/28 19:19 Order name: Throat Culture EDMS Administered Medications: 21:00 Drug: Tylenol 1000 mg Route: PO; ld1 Disposition Summary: 04/28/22 20:51 Discharge Ordered Location: Home cp Problem: new cp Symptoms: are unchanged cp Condition: Stable cp Diagnosis - Otitis media, unspecified, bilateral cp Followup: cp - With: Private Physician - When: 2 - 3 days - Reason: Worsening of condition Discharge Instructions: - Discharge Summary Sheet cp - Otitis Media, Adult cp Forms: - Medication Reconciliation Form cp - Thank You Letter cp - Antibiotic Education cp - Prescription Opioid Use cp Prescriptions: - Amoxicillin 875 mg Oral Tablet - take 1 tablet by ORAL route every 12 hours for 10 days; 20 tablet; Refills: 0, cp Product Selection Permitted Signatures: Dispatcher [employer] EDMS Loco Herron PA PA cp Lewis, Lynsay, RN RN ll1 Liya Marte RN RN ld1 Corrections: (The following items were deleted from the chart) 18:26 18:25 Allergies: No Known Allergies; ll1 ll1 04/29 00:04/27 19:10 Constitutional: The patient appears in no acute distress, alert, awake, cp non-toxic, well developed, well nourished, cp 04/29 00:04/27 19:10 Head/Face: Normocephalic, atraumatic. cp cp 04/29 00:04/27 19:10 Eyes: Periorbital structures: appear normal, Conjunctiva: normal, no cp exudate, no injection, Sclera: no appreciated abnormality, Lids and lashes: appear normal, bilaterally, cp 04/29 00:00 04/27 19:10 ENT: External ear(s): are unremarkable, Ear canal(s): are normal, clear, cp TM's: bulging, is not appreciated, bilaterally, erythema, that is mild, bilaterally, Nose: is normal, Mouth: Lips: moist, Oral mucosa: moist, Posterior pharynx: Airway: no evidence of obstruction, patent, Tonsils: no enlargement, no exudate, Uvula: midline, swelling, is not appreciated, erythema, that is mild, exudate, is not appreciated, cp 04/29 00:04/27 19:10 Neck: ROM/movement: is normal, is supple, without pain, no range of motions cp limitations, no meningismus, Lymph nodes: no appreciated lymphadenopathy, cp 04/29 00:04/27 19:10 Chest/axilla: Inspection: normal, cp cp 04/29 00:04/27 19:10 Cardiovascular: Rate: tachycardic, Rhythm: regular, cp cp 04/29 00:04/27 19:10 Respiratory: the patient does not display signs of respiratory distress, cp Respirations: normal, no use of accessory muscles, no retractions, Breath sounds: decreased breath sounds, are not appreciated, stridor, is not appreciated, + upper airway congestion. wheezing: is not appreciated, cp 04/29 00:04/27 19:10 Abdomen/GI: Exam negative for discomfort, distension, guarding, Inspection: cp abdomen appears normal, cp
--- NOTE | 2022-04-28 20:52 | ER ---
Nurse's Notes [facility] Name: Neva Reyes Age: 22 yrs Sex: Female : 2000 Arrival Date: 04/28/2022 Time: 18:17 Bed 28 Private MD: Diagnosis: Otitis media, unspecified, bilateral Presentation: 04/28 18:23 Chief complaint: Patient states: Sinus congestion, LINDSAY, B ear pains for 2 days. 12 weeks ll1 . G1, P0. No fevers. Nausea is worse than usual. Coronavirus screen: Vaccine status: Patient reports being unvaccinated. Client denies travel out of the [place] in the last 14 days. congestion, fatigue, headache, Client presents with at least one sign or symptom that may indicate coronavirus-19. Standard/surgical mask placed on the client. Ebola Screen: Patient denies travel to an Ebola-affected area in the 21 days before illness onset. Initial Sepsis Screen: Does the patient meet any 2 criteria? No. Patient's initial sepsis screen is negative. Does the patient have a suspected source of infection? Yes: Other: sinus congestion. Risk Assessment: Do you want to hurt yourself or someone else? Patient reports no desire to harm self or others. Onset of symptoms was April 27, 2022. 18:23 Method Of Arrival: Ambulatory ll1 18:23 Acuity: HILDA 3 ll1 Triage Assessment: 18:26 General: Appears ill, Behavior is cooperative, appropriate for age. Pain: Complains of ll1 pain in head. EENT: Reports nasal congestion. Neuro: Reports headache. 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 Flu vaccine status is unknown. - Social history:: Smoking status: Patient denies any tobacco usage or history of. Screenin:59 Abuse screen: Denies threats or abuse. Denies injuries from another. Nutritional ld1 screening: No deficits noted. Tuberculosis screening: No symptoms or risk factors identified. Fall Risk None identified. Assessment: 20:59 Reassessment: See triage assessment. ld1 Vital Signs: 18:23 BP 123 / 67; Pulse 117; Resp 17; Temp 98.3; Pulse Ox 98% ; Weight 90.72 kg; Height 5 ll1 ft. 3 in. (160.02 cm); Pain 6/10; 20:59 BP 126 / 72; Pulse 106; Resp 18; Pulse Ox 99% on R/A; ld1 18:23 Body Mass Index 35.43 (90.72 kg, 160.02 cm) ll1 ED Course: 18:17 Patient arrived in ED. mr 18:25 Triage completed. ll1 18:26 Arm band placed on. ll1 18:27 Loco Herron PA is PHCP. cp 18:27 Seth Hand DO is Attending Physician. cp 19:02 Influenza Screen (A Sent. ll1 19:02 Influenza Screen (a \T\ B) Sent. ll1 19:02 Strep Sent. ll1 20:59 Liya Marte, SUSY is Primary Nurse. ld1 20:59 Patient has correct armband on for positive identification. Placed in gown. Bed in low ld1 position. Call light in reach. Side rails up X2. monitor technician on. Pulse ox on. NIBP on. Door closed. Noise minimized. Warm blanket given. 20:59 No provider procedures requiring assistance completed. Patient did not have IV access ld1 during this emergency room visit. Administered Medications: 21:00 Drug: Tylenol 1000 mg Route: PO; ld1 Medication: 20:59 VIS not applicable for this client. ld1 Outcome: 20:51 Discharge ordered by MD. cp 21:04 Discharged to home ambulatory, with family. ld1 21:04 Condition: stable 21:04 Discharge instructions given to patient, Instructed on discharge instructions, follow up and referral plans. medication usage, Demonstrated understanding of instructions, follow-up care, medications, Prescriptions given X 1. 21:04 Patient left the ED. ld1 Signatures: Roslyn Sanon mr Loco Herron PA PA cp Lewis, Lynsay, RN RN ll1 Liya Marte, SUSY RN ld1 Corrections: (The following items were deleted from the chart) 18:26 18:25 Allergies: No Known Allergies; ll1 ll1 18:27 18:23 BP 123 / 67; Pulse 123bpm; Resp 17bpm; Pulse Ox 98%; Temp 98.3F; 90.72 kg; Height ll1 5 ft. 3 in.; BMI: 35.4; Pain 6/10; ll1
[2022-04-28] MEDS ORDERED: ACETAMINOPHEN 500 MG TAB ONE (20:59)
[2022-04-28 21:11] VITALS: TEMP 98.3
[2022-04-28 21:13] VITALS: BP 126/72; O2SAT 99
== END 2022-04-28 21:04 | disposition home or self-care (01) ==
LOC: ER 18:12
DX: O99.891 Other specified diseases and conditions complicating pregnancy (principal); H66.93 Otitis media, unspecified, bilateral; Z20.822 Contact with and (suspected) exposure to COVID-19; Z3A.12 12 weeks gestation of pregnancy; Z91.013 Allergy to seafood
CPT/HCPCS: 87070; 87081; 87804 ×2; 99284; U0003

== ENCOUNTER 2022-05-02 16:50 | Emergency (ER) | payer OTHER ==
--- OUTSIDE RECORDS SUMMARY | 2022-05-02 16:53 | XMS REPORT | Continuity of Care Document ---
:2000 Author Organization [facility] t Address [facility] [place] [address] Care Team Providers Name Role Phone Pcp, Does Not Have A Primary Care Physician Christine DODSON Attending Clinician Unavailable Sarah JAIN Attending Clinician Unavailable Ely JAIN Attending Clinician Unavailable Ivory MITCHELL C Attending Clinician Ultrasound Attending Clinician Unavailable Kan DUKE M Attending Clinician Domonique THOMSON Attending Clinician Unavailable Domonique THOMSON Attending Clinician Unavailable Doctor Unassigned, Name Attending Clinician Unavailable Aga LOPEZ Attending Clinician Unavailable Khari CARPENTER Attending Clinician Unavailable Catracho DUKE L Attending Clinician Payers Payer Name Policy Type Policy Number Effective Date Expiration Date S ource MEDICAID OF [place] [id number] 2022 00:00:00 Problems Condition Condition Condition Status Onset Resolution Last Treating Co mments Source Name Details Category Date Date Treatment Clinician Date Supervisio Supervisio Disease Active U filemon n of n of 4-29 ity of [place] [facility] Nausea and Nausea and Disease Active U filemon vomiting vomiting 4-29 ity of during during 00:00: [place] 00 [facility] Obesity in Obesity in Disease Active U nivers 4-29 ity of 00:00: [place] [address] Medical Branch Obesity Obesity Disease Active Univers (BMI (BMI 6-02 ity of 30-39.9) 30-39.9) 00:00: [place] [address] Medical Branch Allergies, Adverse Reactions, Alerts Allergy Allergy Status Severity Reaction(s) Onset Inactive Treating Comm ents Source Name Type Date Date Clinician SHRIMP DRUG Active Swelling Univers INGREDI 03-19 ity of 00:00: 00 Medical Branch Shrimp Propensi Active Swelling Univer s ty to 03-19 ity of adverse 00:00: [place] reaction 00 Medical s Branch NO KNOWN Drug Active Univers ALLERGIE Class ity of S [facility] Social History Social Habit Start Date Stop Date Quantity Comments Source ASSERTION 2022-02-12 University 00:00:00 [facility] Exposure to 2022-04-06 2022-04-16 Not sure [facility] SARS-CoV-2 00:00:00 16:12:00 [facility] (event) [place] Alcohol intake 2022-04-16 2022-04-16 Lifetime University of 00:00:00 00:00:00 non-drinker [facility] (finding) [place] Tobacco use and 2021-04-22 2021-04-22 Never used Universit y of exposure 00:00:00 00:00:00 [facility] Sex Assigned At [birth year] Universit y of 00:00:00 00:00:00 [facility] Smoking Status Start Date Stop Date Source Never smoker [facility] Medications Ordered Filled Start Stop Current Ordering Indication Dosage Frequency Signature Comments Components Source Medication Medication Date Date Medication? Clinician (SIG) Name Name kat Dimas, 2021- No Take by U isaac mcgovern/Alexx. 03-19 04-29 mouth. ity o f ani/cran 15:12: 00:00 [place] (UP4 38 :00 Medical PROBIOTICS Branch WOMEN'S ORAL) PNV 67-iron Yes [id number] 1{each} Take 1 Univers ps-folate 4-29 Each by ity of no.1-dha 00:00: mouth [place] (VITAFOL 00 daily. Medical ULTRA) 29 Branch mg iron- 1 mg-200 mg Cap proMETHazin Yes [id number] 25mg Take 1 Univers e 25 mg 4-29 tablet by ity of tablet 00:00: mouth [place] 00 every 6 Medical (six) Branch hours as needed for Nausea and Vomiting (N/V). PNV 67-iron 0 Yes [id number] 1{each} Take 1 Univers ps-folate 4-29 Each by ity of no.1-dha 00:00: mouth [place] (VITAFOL 00 daily. Medical ULTRA) 29 Branch mg iron- 1 mg-200 mg Cap proMETHazin 2-0 Yes [id number] 25mg Take 1 Univers e 25 mg 4-29 tablet by ity of tablet 00:00: mouth [place] 00 every 6 Medical (six) Branch hours as needed for Nausea and Vomiting (N/V). PNV 67-iron 2022-0 Yes [id number] 1{each} Take 1 Univers ps-folate 4-29 Each by ity of no.1-dha 00:00: mouth [place] (VITAFOL 00 daily. Medical ULTRA) 29 Branch mg iron- 1 mg-200 mg Cap proMETHazin 2-0 Yes [id number] 25mg Take 1 Univers e 25 mg 4-29 tablet by ity of tablet 00:00: mouth [place] 00 every 6 Medical (six) Branch hours as needed for Nausea and Vomiting (N/V). PNV 67-iron 2021-0 Yes [id number] 1{each} Take 1 Univers ps-folate 4-29 Each by ity of no.1-dha 00:00: mouth [place] (VITAFOL 00 daily. Medical ULTRA) 29 Branch mg iron- 1 mg-200 mg Cap proMETHazin 2-0 Yes [id number] 25mg Take 1 Univers e 25 mg 4-29 tablet by ity of tablet 00:00: mouth [place] 00 every 6 Medical (six) Branch hours as needed for Nausea and Vomiting (N/V). PNV 67-iron 2021-0 Yes [id number] 1{each} Take 1 Univers ps-folate 4-29 Each by ity of no.1-dha 00:00: mouth [place] (VITAFOL 00 daily. Medical ULTRA) 29 Branch mg iron- 1 mg-200 mg Cap proMETHazin 2022-0 Yes [id number] 25mg Take 1 Univers e 25 mg 4-29 tablet by ity of tablet 00:00: mouth [place] 00 every 6 Medical (six) Branch hours as needed for Nausea and Vomiting (N/V). PNV 67-iron 2022-0 Yes [id number] 1{each} Take 1 Univers ps-folate 4-29 Each by ity of no.1-dha 00:00: mouth [place] (VITAFOL 00 daily. Medical ULTRA) 29 Branch mg iron- 1 mg-200 mg Cap proMETHazin 2021-0 Yes [id number] 25mg Take 1 Univers e 25 mg 4-29 tablet by ity of tablet 00:00: mouth [place] 00 every 6 Medical (six) Branch hours as needed for Nausea and Vomiting (N/V). PNV 67-iron 2021-0 Yes [id number] 1{each} Take 1 Univers ps-folate 4-29 Each by ity of no.1-dha 00:00: mouth [place] (VITAFOL 00 daily. Medical ULTRA) 29 Branch mg iron- 1 mg-200 mg Cap proMETHazin 2021-0 Yes [id number] 25mg Take 1 Univers e 25 mg 4-29 tablet by ity of tablet 00:00: mouth [place] 00 every 6 Medical (six) Branch hours as needed for Nausea and Vomiting (N/V). PNV 67-iron 2021-0 Yes [id number] 1{each} Take 1 Univers ps-folate 4-29 Each by ity of no.1-dha 00:00: mouth [place] (VITAFOL 00 daily. Medical ULTRA) 29 Branch mg iron- 1 mg-200 mg Cap proMETHazin 2021-0 Yes [id number] 25mg Take 1 Univers e 25 mg 4-29 tablet by ity of tablet 00:00: mouth [place] 00 every 6 Medical (six) Branch hours as needed for Nausea and Vomiting (N/V). PNV 67-iron 2021-0 Yes [id number] 1{each} Take 1 Univers ps-folate 4-29 Each by ity of no.1-dha 00:00: mouth [place] (VITAFOL 00 daily. Medical ULTRA) 29 Branch mg iron- 1 mg-200 mg Cap proMETHazin 2021-0 Yes [id number] 25mg Take 1 Univers e 25 mg 4-29 tablet by ity of tablet 00:00: mouth [place] 00 every 6 Medical (six) Branch hours as needed for Nausea and Vomiting (N/V). L.acid,gas, 2020- Yes Take by Luis Eduardo webber,rhdomonique/B. 04-22 mouth. ity of ani/cran 19:16: [place] (UP4 48 Medical PROBIOTICS Branch WOMEN'S ORAL) L.acid,gas, 2021-0 Yes Take by isaac Amaro/B. 6 mouth. ity of ani/cran 19:16: [place] (UP4 48 Medical PROBIOTICS Branch WOMEN'S ORAL) Vital Signs Vital Name Observation Time Observation Value Comments Source Systolic blood 2022-04-16 21:12:00 113 mm[Hg] Univer sity of pressure [place] [facility] Diastolic blood 2022-04-16 21:12:00 75 mm[Hg] Unive rsity of pressure [place] [facility] Heart rate 2022-04-16 21:12:00 96 /min Universi ty of [place] [facility] Body temperature 2022-04-16 21:12:00 36.56 Aicha Univ ersity of [place] [facility] Respiratory rate 2022-04-16 21:12:00 16 /min Univ ersity of [place] [facility] Body height 2022-04-16 21:12:00 160 cm Universi ty [facility] [place] [facility] Body weight 2022-04-16 21:12:00 96.48 kg [facility] [place] [facility] BMI 2022-04-16 21:12:00 37.68 kg/m2 [facility]i ty [facility] [place] [facility] Diastolic blood 2022-03-19 20:07:00 63 mm[Hg] Unive rsity of pressure [place] [facility] Heart rate 2022-03-19 20:07:00 95 /min [facility]i ty [facility] [place] [facility] Body temperature 2022-03-19 20:07:00 36.33 Aicha Univ ersity [facility] [place] [facility] Respiratory rate 2022-03-19 20:07:00 20 /min Univ ers[facility] [place] [facility] Body height 2022-03-19 20:07:00 160 cm [facility]i ty [facility] [place] [facility] Body weight 2022-03-19 20:07:00 93.441 kg [facility] [place] [facility] BMI 2022-03-19 20:07:00 36.49 kg/m2 [facility] [place] [facility] Systolic blood 2022-03-19 20:07:00 123 mm[Hg] Univer sity of pressure [place] [facility] Systolic blood 2021-04-22 19:11:00 112 mm[Hg] Univer sity of pressure [place] [facility] Diastolic blood 2021-04-22 19:11:00 75 mm[Hg] Unive rsity of pressure [place] [facility] Heart rate 2021-04-22 19:11:00 123 /min [facility] Body temperature 2021-04-22 19:11:00 37.28 Aicha [facility] Respiratory rate 2021-04-22 19:11:00 18 /min [facility] Body height 2021-04-22 19:11:00 160 cm [facility] Body weight 2021-04-22 19:11:00 91.173 kg [facility] BMI 2021-04-22 19:11:00 35.61 kg/m2 [facility] Procedures Procedure Date / Time Performed Performing Clinician Sour e POCT URINALYSIS 2022-04-16 21:13:00 Nereida Dodson [facility] REPORT OF 2022-03-24 05:01:00 Doctor Unassigned, No Un iversity of [facility] POCT TEST 2022-03-19 00:00:00 Nereida Dodson Uni versruma [facility] POCT URINALYSIS W/O 2022-03-19 00:00:[address] Uni [address] [facility] Encounters Start End Encounter Admission Attending Care Care Encounter Source Date/Time Date/Time Type Type Clinicians Facility Department ID 2022-05-14 2022-05-14 Outpatient R IVORY [facility] [id number] [id number]-20 Univers 16:00:00 16:00:00 NEREIDA [id number] ity o f [facility]ly [facility] 2022-04-30 2022-04-30 SHABANA Sandy 1.2.840.114 [id number] Univers 00:00:00 00:00:00 Triage Cecile JERICHO 350.1.13.10 it y [facility] 4.2.7.2.686 Julio as [id number] [address] 2022-04-30 2022-04-30 SHABANA Zuleta 1.2.840.114 [id number] Univers 00:00:00 00:00:00 Triage Aneatrice JERICHO 350.1.13.10 ity [facility] 4.2.7.2.686 Julio as [id number] [address] 2022-04-29 2022-04-29 [facility] 1.2.840.114 [id number] Univers 00:00:00 00:00:00 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 350.1.13.10 ity of REGIONAL 4.2.7.2.686 Julio as MATERNAL [id number] [facility] & CHILD [address] [place] [address] 2022-04-28 2022-04-28 Nurse SHABANA Smith 1.2.840.114 [id number] Univers 00:00:00 00:00:00 Triage Cecile ECHAVARRIA 350.1.13.10 it y of [facility] 4.2.7.2.686 Julio as [id number] [address] 2022-04-16 2022-04-16 Routine [facility] [id number] Univers 15:30:00 15:45:00 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 350.1.13.10 ity of Visit REGIONAL 4.2.7.2.686 Julio as MATERNAL [phone] [address] 2022-04-16 2022-04-16 Outpatient R IVORY, [facility] [id number] 2A-20 Univers 15:30:00 15:30:00 NEREIDA [id number] ity o [facility] 2022-04-16 2022-04-16 Outpatient R AKINSIPE, [facility] [id number] Univers 15:30:00 15:30:00 NEREIDA ity o f [facility] 2022-04-14 2022-04-14 Abstract [facility] 1.2.840.114 [id number] Univers 00:00:00 00:00:00 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 350.1.13.10 ity of REGIONAL 4.2.7.2.686 Julio as MATERNAL [id number] [address] 2022-04-09 2022-04-09 Rn Acute Ultrasound, [facility] 1.2 .840.114 [id number] Univers 11:30:00 12:00:00 Visit Niurka Thomson LEAD AUDITOR 350.1.13.10 ity of [facility] 4.2.7.2.686 Julio as MATERNAL [id number] [facility] & CHILD [address] [facility] 2022-04-09 2022-04-09 Outpatient R [facility] [id number] Univers 11:30:00 11:30:00 [id number] ity [facility] 2022-04-09 2022-04-09 Outpatient P [facility] [id number] Univers 11:30:00 11:30:00 ity [facility] 2022-04-09 2022-04-09 Outpatient P NIURKA THOMSON [facility] [id number] Univers 11:30:00 11:30:00 NIURKA THOMSON sally [facility] 2022-03-24 2022-03-24 Orders Doctor SHABANA 1.2.840.114 [id number] Univers 00:00:00 00:00:00 Only Unassigned, JERICHO 350.1.13.[address] [facility] 4.2.7.2.686 Julio as [id number] [address] 2022-03-19 2022-03-19 [facility] [id number] Univers 15:00:00 15:52:14 NEREIDA hendrix o [facility] 2022-03-19 2022-03-19 [facility] [id number] Univers 15:00:00 15:52:14 Nereida King LEAD AUDITOR 350.1.13.10 ity of Visit REGIONAL 4.2.7.2.686 Julio as MATERNAL [id number] [facility] [address] [place] [address] 2022-03-19 2022-03-19 Outpatient R IVORY, [facility] [id number] 2A-20 Univers 15:00:00 15:00:00 NEREIDA [id number] ity o [facility] 2022-03-10 2022-03-10 [facility] [id number] Univers 13:30:00 13:30:00 WILFREDO [id number] ity o [facility] 2021-06-01 2021-06-01 Outpatient R AD, [facility] [id number] Univers 10:00:00 10:00:00 AUDREY [id number] [facility] 2021-06-01 2021-06-01 Outpatient R AD, [facility] [id number] Univers 00:00:00 00:00:00 AUDREY [facility] 2021-04-22 2021-04-22 Office [facility] 1.2.840.114 [id number] Univers 13:59:17 15:04:16 Visit Audrey Solis 350.1.13.10 [facility] 4.2.7.2.686 Julioluke amador Professio [id number] [place] [address] [facility] 2021-04-22 2021-04-22 Outpatient R [facility] [id number] Univers 14:00:00 14:00:00 [facility] Results Test Description Test Time Test Comments [...] POCT U APPEAR (test code = 3267) [facility] [id number] 20:13:00 Test Item Value Reference Range Interpretation Comments POCT PREG (test code = 1605) Positive On board controls acceptable with C Yes Line (test code = 3574) POCT PREG LOT # (test code = 3575) POCT PREG TEST DATE (test code = 3576) [facility] W/O SPECIFIC [id number] 20:13:00 Test Item Value Reference Range Interpretation [...] code = 3257) negative Negative - Negative [facility]
--- NOTE | 2022-05-02 18:22 | RAD REPORT ---
EXAM DESCRIPTION: CT - Head Brain Wo Cont - 05/02/2022 6:10 pm CLINICAL HISTORY: Headache/left ear pain COMPARISON: None TECHNIQUE: Computed axial tomography of the head was obtained. IV contrast was not requested. All CT scans are performed using dose optimization technique as appropriate and may include automated exposure control or mA/KV adjustment according to patient size. FINDINGS: An intracranial bleed is not seen . The ventricles are normal in caliber. No extra-axial fluid collection is noted. No significant hypodensity within the brain Fluid within the sinuses/ mastoids is not seen. Left mastoids are clear IMPRESSION: No acute intracranial abnormality is seen. If patient's symptoms persist MRI of the bra in would be recommended.
--- NOTE | 2022-05-02 18:34 | ER ---
Nurse's Notes [facility] Name: Neva Reyes Age: 22 yrs Sex: Female : 2000 Arrival Date: 05/02/2022 Time: 16:51 Bed 12 Private MD: Diagnosis: Otalgia, left ear Presentation: 05/02 17:26 Chief complaint: Patient states: "I was seen here a couple days ago and was swabbed and aa5 everything was negative and sent me home with antibiotics for an ear infection". Pt states "it was both my ears hurting but now it's only my left but it's worse" Report being 13 weeks . 17:26 Onset of symptoms was April 2022. aa5 17:26 Coronavirus screen: cough unrelated to allergies. Ebola Screen: No symptoms or risks aa5 identified at this time. Initial Sepsis Screen: Does the patient meet any 2 criteria? No. Patient's initial sepsis screen is negative. Does the patient have a suspected source of infection? No. Patient's initial sepsis screen is negative. Risk Assessment: Do you want to hurt yourself or someone else? Patient reports no desire to harm self or others. 17:26 Acuity: HILDA 5 aa5 17:26 Method Of Arrival: Ambulatory aa5 17:37 Acuity: HILDA 4 iw Historical: - Allergies: 17:29 shrimp; aa5 - PMHx: 17:29 None; aa5 - PSHx: 17:29 None; aa5 - Immunization history:: Adult Immunizations unknown. - Social history:: Smoking status: Patient denies any tobacco usage or history of. Vital Signs: 17:26 BP 117 / 70; Pulse 107; Resp 20 S; Temp 98.0(TE); Pulse Ox 100% on R/A; Weight 90.72 kg aa5 (R); Height 5 ft. 3 in. (160.02 cm) (R); 17:26 Body Mass Index 35.43 (90.72 kg, 160.02 cm) aa5 ED Course: 16:51 Patient arrived in ED. jj6 16:52 Mary Mancia FNP-C is [facility]. kb 16:52 Ryan Martinez MD is Attending Physician. kb 17:26 Arm band placed on. aa5 17:30 Triage completed. aa5 18:12 CT Head Brain wo Cont In Process Unspecified. EDMS 18:53 Brandi Benoit, RN is Primary Nurse. iw Administered Medications: 18:53 Drug: Tylenol 1000 mg Route: PO; iw Outcome: 18:33 Discharge ordered by . kb 18:53 Patient left the ED. iw Signatures: Dispatcher [employer] EDMS Mary Mancia, SENIOR VICE PRESIDENT-C SENIOR VICE PRESIDENT-Ckb Brandi Benoit, RN RN iw Angelina Diaz RN RN aa5 Roxana Owen jj6
--- NOTE | 2022-05-02 18:34 | EDPHYS ---
Physician Documentation [facility] Name: Neva Reyes Age: 22 yrs Sex: Female : 2000 Arrival Date: 05/02/2022 Time: 16:51 Bed 12 Private MD: ED Physician Ryan Martinez HPI: 05/02 19:52 This 22 yrs old Female presents to ER via Ambulatory with complaints of Ear kb Pain - 13 wks. 19:52 The patient presents with pain. The complaints affect the left mastoid area. Onset: The kb symptoms/episode began/occurred last week. Modifying factors: The symptoms are alleviated by nothing, the symptoms are aggravated by touching. Associated signs and symptoms: The patient has no apparent associated signs or symptoms. Severity of symptoms: At their worst the symptoms were moderate in the emergency department the symptoms are unchanged. The patient has not experienced similar symptoms in the past. The patient has been recently seen at the [facility] Emergency Department. Pt states she was here a few days ago for bilateral ear pain and diagnosed with bilateral ear infection. States she is taking the antibiotics and the right ear feels better, but the pain is increasing in the left. States she feels like there is swelling to mastoid area. . Historical: - Allergies: 17:29 shrimp; aa5 - PMHx: 17:29 None; aa5 - PSHx: 17:29 None; aa5 - Immunization history:: Adult Immunizations unknown. - Social history:: Smoking status: Patient denies any tobacco usage or history of. ROS: 19:51 Constitutional: Negative for fever, chills, and weight loss. kb 19:51 ENT: Positive for ear pain. 19:51 All other systems are negative. Exam: 19:51 Constitutional: This is a well developed, well nourished patient who is awake, alert, kb and in no acute distress. Head/Face: Normocephalic, atraumatic. ENT: Moist Mucous membranes Cardiovascular: Regular rate and rhythm with a normal S1 and S2. No gallops, murmurs, or rubs. No pulse deficits. Respiratory: Respirations even and unlabored. No increased work of breathing. Talking in full sentences Skin: Warm, dry with normal turgor. Normal color. MS/ Extremity: Pulses equal, no cyanosis. Neurovascular intact. Full, normal range of motion. Neuro: Awake and alert, GCS 15, oriented to person, place, time, and situation. Moves all extremities. Normal gait. Psych: Awake, alert, with orientation to person, place and time. Behavior, mood, and affect are within normal limits. 19:51 Head/face: Noted is no obvious of injury or deformity except tenderness, that is moderate, of the left mastoid area. 19:51 ENT: External ear(s): Ear canal(s): are normal, TM's: are normal. Vital Signs: 17:26 BP 117 / 70; Pulse 107; Resp 20 S; Temp 98.0(TE); Pulse Ox 100% on R/A; Weight 90.72 kg aa5 (R); Height 5 ft. 3 in. (160.02 cm) (R); 17:26 Body Mass Index 35.43 (90.72 kg, 160.02 cm) aa5 MDM: 17:02 Patient medically screened. kb 19:51 Data reviewed: vital signs, nurses notes. Data interpreted: Pulse oximetry: on room air kb is 100 %. Interpretation: normal. Counseling: I had a detailed discussion with the patient and/or guardian regarding: the historical points, exam findings, and any diagnostic results supporting the discharge/admit diagnosis, radiology results, the need for outpatient follow up, a family practitioner, to return to the emergency department if symptoms worsen or persist or if there are any questions or concerns that arise at home. 05/02 17:06 Order name: CT Head Brain wo Cont; Complete Time: 18:32 kb Administered Medications: 18:53 Drug: Tylenol 1000 mg Route: PO; iw Disposition Summary: 05/02/22 18:33 Discharge Ordered Location: Home kb Condition: Stable kb Diagnosis - Otalgia, left ear kb Followup: kb - With: Emergency Department - When: As needed - Reason: Worsening of condition Followup: kb - With: Private Physician - When: 2 - 3 days - Reason: Recheck today's complaints, Continuance of care, Re-evaluation by your physician Discharge Instructions: - Discharge Summary Sheet kb - Earache, Adult kb Forms: - Medication Reconciliation Form kb - Thank You Letter kb - Antibiotic Education kb - Prescription Opioid Use kb Signatures: Dispatcher [employer] EDMary Gutierrez FNP-C FNP-Ckb Brandi Benoit, RN RN iw Aneglina Diaz, RN RN aa5
[2022-05-02] MEDS ORDERED: ACETAMINOPHEN 500 MG TAB ONE (18:57)
[2022-05-02 19:01] VITALS: BP 117/70; TEMP 98; O2SAT 100
== END 2022-05-02 18:53 | disposition home or self-care (01) ==
LOC: ER 16:50
DX: O26.891 Other specified pregnancy related conditions, first trimester (principal); Z3A.13 13 weeks gestation of pregnancy; Z91.013 Allergy to seafood
CPT/HCPCS: 70450; 99283

== ENCOUNTER 2022-11-09 19:14 | Emergency (ER) | payer OTHER ==
--- OUTSIDE RECORDS SUMMARY | 2022-11-09 19:20 | XMS REPORT | Continuity of Care Document ---
:2000 Author Organization [facility] t Address [address] [place] [address] Care Team Providers Name Role Phone Nataliia Corey Primary Care Physician [phone] ROCKY CONRAD Attending Clinician Unavailable Rocky Conrad MD Attending Clinician Steve Jimenez MD Attending Clinician Jennifer Fajardo MD Attending Clinician Amber Conde MD Attending Clinician SHABANA SANCHEZ Attending Clinician Unavailable AUDREY HAYDEN Attending Clinician Unavailable Audrey Hayden MD Attending Clinician YOLY MEI Attending Clinician Unavailable ROSAMARIA SOSA Attending Clinician Unavailable Provider, Etta Temp Attending Clinician Unavailable Rosamaria Sosa PA-C Attending Clinician Doctor Unassigned, [place] Attending Clinician Unavailable Nataliia Corey Attending Clinician [phone] NATALIIA DODSON Attending Clinician Unavailable Yoly Mei CNM Attending Clinician Lab, Etta Attending Clinician Unavailable Ultrasound, Misty Attending Clinician Unavailable Leola Greco MD Attending Clinician [phone] LEOLA GRECO Attending Clinician Unavailable Leatha Michele MD Attending Clinician LEATHA MICHELE Attending Clinician Unavailable Paul CHRISTOPHER, Doug R Attending Clinician Sarah JAIN, Cecile Attending Clinician Unavailable Debra Graves RN Attending Clinician Unavailable Janette Thomson MD Attending Clinician JANETTE THOMSON Attending Clinician Unavailable JANETTE THOMSON Attending Clinician Unavailable ROCKY CONRAD Admitting Clinician Unavailable Rocky Conrad MD Admitting Clinician AUDREY HAYDEN Admitting Clinician Unavailable Audrey Hayden MD Admitting Clinician Payers Payer Name Policy Type Policy Number Effective Date Expiration Date Remi [employer] [id number] 2022 00:00:00 [place] [id number] 2022 00:00:00 Problems Condition Condition Condition Status Onset Resolution Last Treating Co mments Source Name Details Category Date Date Treatment Clinician Date Morbid Morbid Disease Active 2021-11 Univers obesity obesity 2-17 [place] of with [place] mass index mass index 00 Me dical of of Branch 40.0-49.9 40.0-49.9 40 weeks 40 weeks Disease Active 2021-11 Unive rs gestation gestation 2-16 ity of of of 00:00: [place] 00 [facility] Excessive Excessive Disease Active 2021-11 Uni vers weight weight 2-03 ity of gain gain 00:00: [place] affecting affecting 00 [facility] Bran ch Refused Refused Disease Active 2021-11 Univers influenza influenza 2-03 ity of vaccine vaccine 00:00: [place] 00 [facility] Branch Anemia Anemia Disease Active 2021-11 Univers during during 1-16 [place] 00[place] in third in third 00 Medica l trimester trimester Bran ch Pain of Pain of Disease Active 2021-11 Univers round round 0-27 ity of ligament ligament 00:00: [place] during during 00 Medical Bran ch Adnexal Adnexal Disease Active Overview: Univ ers cyst cyst 7-29 Formattin ity of 00:00: g of this [place] 00 note Medical might be Branch different from the original. Noted on usg left side, follow up usg in 3/4 weeks scheduled Left Left Disease Active Overview: Univer s ovarian ovarian 06-18 Formattin ity o f cyst- cyst- 00:00: g of this [place] measuring measuring 00 note Medi natalie 5.89 x 5.89 x might be Branch 4.51 x 4.51 x different 5.55 cm 5.55 cm from the original. Noted on usg left side, follow up usg in 3/4 weeks scheduled Supervisio Supervisio Disease Active U nivers n of n of 03-19 ity of high-risk high-risk 00:00[place] [facility] Branch Nausea and Nausea and Disease Active U nivers vomiting vomiting 03-19 ity of during during 00:00: [place] 00 [facility] Branch Obesity in Obesity in Disease Active U nivers 03-19 ity of 00:00: [place] 00 Medical Branch Allergies, Adverse Reactions, Alerts Allergy Allergy Status Severity Reaction(s) Onset Inactive Treating Comm ents Source Name Type Date Date Clinician SHRIMP DRUG Active Swelling Univers INGREDI 03-19 ity of 00:00: [place] 00 Medical Branch Shrimp Propensi Active Swelling Univer s ty to 03-19 ity of adverse 00:00: [place] reaction 00 Medical s Branch Social History Social Habit Start Date Stop Date Quantity Comments Source ASSERTION 2022-02-12 [facility] 00:00:00 [facility] Alcohol intake 2022-11-08 2022-11-08 [facility] University 00:00:00 00:00:00 non-drinker [facility] (finding) Branch Exposure to 2022-10-26 2022-11-05 Not sure [facility] SARS-CoV-2 00:00:00 07:54:00 [facility] (event) Branch Tobacco use and 2022-06-07 2022-06-07 Smokeless tobacco Un iversity of exposure 00:00:00 00:00:00 non-user [facility] Sex Assigned At [birth year] Universit y of 00:00:00 00:00:00 [facility] Smoking Status Start Date Stop Date Source Never smoked tobacco [facility] Medications Ordered Filled Start Stop Current Ordering Indication Dosage Frequency Signature Comments Components Source Medication Medication Date Date Medication? Clinician (SIG) Name Name 2021-11 Yes [id number] 1{tbl} Take 1 Univers vitamin 2-19 tablet by ity of w/FA tablet 00:00[place] mouth in [place] 00 the Medical morning. Branch docusate 2021-11 Yes [id number] 200mg Take 2 U nivers 100 mg 2-19 capsules ity of capsule 00:00: by mouth [place] 00 once daily Medical as needed Branch for Constipati on. ferrous 2021-11 Yes [id number] 325mg Take 1 Un loli sulfate 325 2-19 tablet by ity of mg (65 mg 00:00: [place] iron) 00 the Medical tablet morning Branch and 1 tablet in the evening. ibuprofen 2021-11 Yes [id number] 600mg Take 1 Univers 600 mg 2-19 tablet by ity of tablet 00:00: mouth [place] 00 every 6 Medical (six) Branch hours as needed (Pain). Take with food or milk. HYDROcodone 2021-11- Yes [id number] 1{tbl} Take 1 U nivers -acetaminop 2-19 12-27 tablet by it y of hen 5-325 00:00: 05:59 mouth [place] mg tablet 00 :00 every 6 Medical (six) Branch hours as needed (Pain scale above 4) for up to 7 days. Do not exceed 3 grams of acetaminop hen in 24 hours. Indication s: acute pain rho(D) 2021-11 Yes 300ug 300 mcg, Univer s immune 2-18 Intramuscu ity of globulin 10:46: lar, ONCE, [place] (RHOGAM) 15 For 1 Medical syringe 300 dose, Branch mcg Conditiona l, Routine rho(D) 2021-11 Yes 300ug 300 mcg, Univer s immune 2-18 Intramuscu ity of globulin 10:46: lar, ONCE, [place] (RHOGAM) 15 For 1 Medical syringe 300 dose, Branch mcg Conditiona l, Routine HYDROcodone 2021-11 Yes 2{tbl} 2 tablet, Univers -acetaminop 2-18 Oral, ity of hen (NORCO 10:46: Q6HPRN, [place] 5) 5-325 mg 12 Starting Medi natalie tablet 2 on [place] Branch tablet 11/07/22 at 0446, Until Discontinu ed, Routine, Pain (scale 7-10), Alternate with Ibuprofen HYDROcodone 2021-11 Yes 2{tbl} 2 tablet, Univers -acetaminop 2-18 Oral, ity of hen (NORCO 10:46: Q6HPRN, [place] 5) 5-325 mg 12 Starting Medi natalie tablet 2 on [place] Branch tablet 11/07/22 at 0446, Until Discontinu ed, Routine, Pain (scale 7-10), Alternate with Ibuprofen HYDROcodone 2021-11 Yes 1{tbl} 1 tablet, Univers -acetaminop 2-18 Oral, ity of hen (NORCO 10:46: Q6HPRN, [place] 5) 5-325 mg 11 Starting Medi natalie tablet 1 on [place] Branch tablet 11/07/22 at 0446, Until Discontinu ed, Routine, Pain (scale 4-6), Alternate with Ibuprofen ibuprofen 2021-11 Yes 600mg 600 mg, Univ ers (IBU) 2-18 Oral, ity of tablet 600 10:46: Q6HPRN, [place] mg 11 Starting Medical on [place] Branch 11/07/22 at 0446, Until Discontinu ed, Routine, Pain (scale 1-3) diphenhydrA 2021-11 Yes 25mg 25 mg, Univ ers MINE 2-18 Slow IV ity of (BENADRYL) 10:46: Push, [place] injection 11 Q6HPRN, Medical 25 mg Starting Branch on 11/07/22 at 0446, Until Discontinu ed, Routine, Itching diphenhydrA 2021-11 Yes 25mg 25 mg, Univ ers MINE 2-18 Oral, ity of (BENADRYL) 10:46: Q6HPRN, [place] tablet 25 11 Starting Medica l mg on [place] Branch 11/07/22 at 0446, Until Discontinu ed, Routine, Sleep, Itching ondansetron 2021-11 Yes 4mg 4 mg, Slow Univers (ZOFRAN 2-18 IV Push, ity of (PF)) 10:46: Q8HPRN, [place] injection 4 11 Starting Medi natalie mg on [place] Branch 11/07/22 at 0446, Until Discontinu ed, Routine, Nausea and Vomiting (N/V) bisacodyL 2021-11 Yes 10mg 10 mg, Univer s (DULCOLAX) 2-18 Rectal, ity of suppository 10:46: QDAILYPRN, [place] 10 mg 11 Starting Medical on [place] Branch 11/07/22 at 0446, Until Discontinu ed, Routine, Constipati on simethicone 2021-11 Yes 160mg 160 mg, Un loli (GAS RELIEF 2-18 Oral, ity of (SIMETHICON 10:46: PC+HSPRN, [place] E)) 11 Starting Medical chewable on [place] Branch tablet 160 11/07/22 mg at 0446, Until Discontinu ed, Routine, Gas docusate 2021-11 Yes 200mg 200 mg, Unive rs (COLACE) 2-18 Oral, ity of capsule 200 10:46: QDAILYPRN, [place] mg 11 Starting Medical on [place] Branch 11/07/22 at 0446, Until Discontinu ed, Routine, Constipati on magnesium 2021-11 Yes 30mL 30 mL, Univer s hydroxide 2-18 Oral, ity of (MILK OF 10:46: QDAILYPRN, [place] MAGNESIA) 11 Starting Medica l 400 mg/5 mL on [place] Branch suspension 11/07/22 30 mL at 0446, Until Discontinu ed, Routine, Constipati on lactated 2021-11 Yes 1000mL at 125 Unive rs ringers IV 2-18 mL/hr, ity of infusion 10:46: 1,000 mL, [place] 1,000 mL 11 IV Medical Infusion, Branch PRN, 1 dose, Starting on 11/07/22 at 0446, Until Discontinu ed, Routine HYDROcodone 2021-11 Yes 1{tbl} 1 tablet, Univers -acetaminop 2-18 Oral, ity of hen (NORCO 10:46: Q6HPRN, [place] 5) 5-325 mg 11 Starting Medi natalie tablet 1 on [place] Branch tablet 11/07/22 at 0446, Until Discontinu ed, Routine, Pain (scale 4-6), Alternate with Ibuprofen ibuprofen 2021-11 Yes 600mg 600 mg, Univ ers (IBU) 2-18 Oral, ity of tablet 600 10:46: Q6HPRN, [place] mg 11 Starting Medical on [place] Branch 11/07/22 at 0446, Until Discontinu ed, Routine, Pain (scale 1-3) diphenhydrA 2021-11 Yes 25mg 25 mg, Univ ers MINE 2-18 Slow IV ity of (BENADRYL) 10:46: Push, [place] injection 11 Q6HPRN, Medical 25 mg Starting Branch on 11/07/22 at 0446, Until Discontinu ed, Routine, Itching diphenhydrA 2021-11 Yes 25mg 25 mg, Univ ers MINE 2-18 Oral, ity of (BENADRYL) 10:46: Q6HPRN, [place] tablet 25 11 Starting Medica l mg on [place] Branch 11/07/22 at 0446, Until Discontinu ed, Routine, Sleep, Itching ondansetron 2021-11 Yes 4mg 4 mg, Slow Univers (ZOFRAN 2-18 IV Push, ity of (PF)) 10:46: Q8HPRN, [place] injection 4 11 Starting Medi natalie mg on [place] Branch 11/07/22 at 0446, Until Discontinu ed, Routine, Nausea and Vomiting (N/V) bisacodyL 2021-11 Yes 10mg 10 mg, Univer s (DULCOLAX) 2-18 Rectal, ity of suppository 10:46: QDAILYPRN, [place] 10 mg 11 Starting Medical on [place] Branch 11/07/22 at 0446, Until Discontinu ed, Routine, Constipati on simethicone 2021-11 Yes 160mg 160 mg, Un loli (GAS RELIEF 2-18 Oral, ity of (SIMETHICON 10:46: PC+HSPRN, [place] E)) 11 Starting Medical chewable on [place] Branch tablet 160 11/07/22 mg at 0446, Until Discontinu ed, Routine, Gas docusate 2021-11 Yes 200mg 200 mg, Unive rs (COLACE) 2-18 Oral, ity of capsule 200 10:46: QDAILYPRN, [place] mg 11 Starting Medical on [place] Branch 11/07/22 at 0446, Until Discontinu ed, Routine, Constipati on magnesium 2021-11 Yes 30mL 30 mL, Univer s hydroxide 2-18 Oral, ity of (MILK OF 10:46: QDAILYPRN, [place] MAGNESIA) 11 Starting Medica l 400 mg/5 mL on [place] Branch suspension 11/07/22 30 mL at 0446, Until Discontinu ed, Routine, Constipati on lactated 2021-11 Yes 1000mL at 125 Unive rs ringers IV 2-18 mL/hr, ity of infusion 10:46: 1,000 mL, [place] 1,000 mL 11 IV Medical Infusion, Branch PRN, 1 dose, Starting on Tue11/07/22 at 0446, Until Discontinu ed, Routine nalbuphine 2021-11 Yes 5mg 5 mg, Univer s (NUBAIN) 2-18 Intravenou ity o f injection 5 08:32: s, PRN, 1 [place] mg 34 dose, Medical Starting Branch on Tue11/07/22 at 0232, Until Discontinu ed, Routine, itching, PACU nalbuphine 2021-11 Yes 5mg 5 mg, Univer s (NUBAIN) 2-18 Intravenou ity o f injection 5 08:32: s, PRN, 1 [place] mg 34 dose, Medical Starting Branch on Tue11/07/22 at 0232, Until Discontinu ed, Routine, itching, PACU naloxone 2021-11- Yes .4mg 0.4 mg, Unive rs (NARCAN) 01-08 Slow IV ity of injection 08:32: 08:31 Push, PRN [place] 0.4 mg 34 :34 - SEE Medical INSTRUCTIO Branch NS, Starting on Tue11/07/22 at 0232, Until Tue11/09/22 at 023, Routine, Analgesia Recovery, PACU naloxone 2021-11- Yes .4mg 0.4 mg, Unive rs (NARCAN) 01-08 Slow IV ity of injection 08:32: 08:31 Push, PRN [place] 0.4 mg 34 :34 - SEE Medical INSTRUCTIO Branch NS, Starting on Tue11/07/22 at 0232, Until Tue11/09/22 at 023, Routine, Analgesia Recovery, PACU ketorolac 2021-11- No 30mg 30 mg, Unive rs (TORADOL) 01-08 Slow IV ity of injection 08:32: 08:47 Push, PRN, [place] 30 mg 34 :00 1 dose, Medical Starting Branch on 11/07/22 at 0232, Until Tu11/09/22 at 2359, Routine, Pain (scale 7-10), PACU methylergon 2021-11 Yes Intramuscu Univers ovine 2-18 lar, ONCE ity of (METHERGINE 07:22: INTRA [place] ) injection 00 PROCEDURE, Me dical Starting Branch on 11/07/22 at 0122, Until Discontinu ed, Routine, Intra-op diphenhydrA 2021-11 Yes Slow IV Uni vers MINE 2-18 Push, ONCE ity of (BENADRYL) 07:20: INTRA [place] injection 00 PROCEDURE, Medi natalie Starting Branch on 11/07/22 at 0120, Until Discontinu ed, Routine, Intra-op ondansetron 2021-11 Yes Slow IV Uni vers (ZOFRAN 2-18 Push, ONCE ity of (PF)) 07:20: INTRA [place] injection 00 PROCEDURE, Medi natalie Starting Branch on 11/07/22 at 0120, Until Discontinu ed, Routine, Intra-op oxytocin 2021-11 Yes IV Univers (PITOCIN) 2-18 Infusion, ity o f 30 units in 07:13: CONTINUOUS [place] NS 500 mL 00 PRN, Medical IV infusion Starting Bran ch on 11/07/22 at 0113, Until Discontinu ed, Routine, Intra-op lactated 2021-11 Yes IV Univers ringers IV 2-18 Infusion, ity of infusion 06:52: CONTINUOUS [place] 00 PRN, Medical Starting Branch on 11/07/22 at 0052, Until Discontinu ed, Routine, Intra-op lactated 2021-11- No 1000mL at 125 Univ ers ringers IV 2-18 12-19 mL/hr, ity of infusion 06:45: 15:44 1,000 mL, [place] 1,000 mL 00 :00 IV Medical Infusion, Branch CONTINUOUS , Starting on 11/07/22 at 0045, Until Tue11/08/22 at 0944, [place] lidocaine-e 2021-11 Yes Intravenou Univers pinephrine 2-18 s, ONCE ity of (XYLOCAINE 06:42: INTRA [place] W/EPINEPHRI 00 PROCEDURE, Me dical NE) 2 Starting Branch %-1:200,000 on Sun injection 11/07/22 at 0042, Until Discontinu ed, Routine, Intra-op HYDROcodone 2021-11- No 1{tbl} 1 tablet, Univers -acetaminop 2-11-07 Oral, ity of hen (NORCO) 06:34: 09:55 Q6HPRN, 1 [place] 10-325 mg 40 :00 dose, Medical tablet 1 Starting Branch tablet on 11/07/22 at 0034, Until Discontinu ed, Routine, Pain (scale 7-10) HYDROcodone 2021-11- No 1{tbl} 1 tablet, Univers -acetaminop -11-07 Oral, ity of hen (NORCO 06:34: 18:52 Q6HPRN, 1 [place] 5) 5-325 mg 39 :00 dose, Medical tablet 1 Starting Branch tablet on 11/07/22 at 0034, Until Discontinu ed, Routine, Pain (scale 4-6) ibuprofen 2021-11 Yes 600mg 600 mg, Univ ers (IBU) 2-18 Oral, ity of tablet 600 06:34: Q6HPRN, [place] mg 38 Starting Medical on [facility] 11/07/22 at 0034, Until Discontinu ed, Routine, Pain (scale 1-3) ibuprofen 2021-11 Yes 600mg 600 mg, Univ ers (IBU) 2-18 Oral, ity of tablet 600 06:34: Q6HPRN, [place] mg 38 Starting Medical on [facility] 11/07/22 at 0034, Until Discontinu ed, Routine, Pain (scale 1-3) oxytocin 2021-11 Yes 600mL/h 600 mL/hr, Univers (PITOCIN) 2-18 IV ity of 30 units in 06:34: Infusion, [place] NS 500 mL 25 PRN, For Medica l IV infusion post Branch delivery uterine atony., Starting on 11/07/[address] at 600 mL/hr for 1 hr then 150 mL/hr for 1 hr.
oxytocin 2021-11 Yes 300mL/h 300 mL/hr, Univers (PITOCIN) 2-18 IV ity of 30 units in 06:34: Infusion, [place] NS 500 mL 25 SEE-INSTRU Medi natalie IV infusion CTIONS, Branc h Starting on 11/07/[address] art at 300 mL/hr for 1 hr then 150 mL/hr for 1 hr. & nbsp; For post delivery uterotonic
oxytocin 2021-11 Yes 600mL/h 600 mL/hr, Univers (PITOCIN) 2-18 IV ity of 30 units in 06:34: Infusion, [place] NS 500 mL 25 PRN, For Medica l IV infusion post Branch delivery uterine atony., Starting on 11/07/[address] art at 600 mL/hr for 1 hr then 150 mL/hr for 1 hr.
oxytocin 2021-11 Yes 300mL/h 300 mL/hr, Univers (PITOCIN) 2-18 IV ity of 30 units in 06:34: Infusion, [place] NS 500 mL 25 SEE-INSTRU Medi natalie IV infusion CTIONS, Branc h Starting on [place] 11/07/[address] at 300 mL/hr for 1 hr then 150 mL/hr for 1 hr. & nbsp; For post delivery uterotonic
azithromyci 2021-11- Yes 500mg 500 mg, IV Univers n 01-08 Piggyback, ity of (ZITHROMAX) 06:02: 06:01 O.R. [place] 500 mg in 05 :05 HOLDING Medical NaCl 0.9% ONCE, Branch (NS) 250 mL Starting VIAL-MATE on [place] IV 11/07/22 piggyback at 0002, Until 11/08/22 at 0001, Administer over 60 Minutes, 250 mL
Reas on for Anti-Infec tive: Surgical Prophylaxi s
Marie rgical Prophylaxi s: JBOSS ARCHITECT
Duration of therapy: within 24 hours of surgery
Reason for Anti-Infec tive: Documented Infection< br>Documen steven Infection Site: Pelvic
Duration of Therapy: 7 days ceFAZolin 2021-11- Yes 2000mg 2 g (2,000 Univers in 0.9% 01-08 mg), IV ity of sodium 06:01: 06:00 [place], [place] chloride 51 :51 O.R. Medical (ANCEF) 2 HOLDING Branch gram/100 mL ONCE, RTU 2 g Starting on 11/07/22 at 0001, Until 11/08/22 at 0000, Administer over 30 Minutes, 100 mL
Reas on for Anti-Infec tive: Surgical Prophylaxi s
Surgi natalie Prophylaxi s: JBOSS ARCHITECT
Duration of therapy: within 24 hours of surgery diphenhydrA 2021-11 No 25mg 25 mg, Uni vers MINE 01-08 Intravenou ity of (BENADRYL) 05:15: 04:26 s, ONCE, 1 [place] injection 00 :00 dose, On Medica l 25 mg Sat Branch 11/06/22 at 2315, Routine tobramycin 2021-11 No 5mg/kg 380 mg Un loli (NEBCIN) 01-08 (rounded ity of 380 mg in 02:30: 02:39 from 377 [place] NaCl 0.9% 00 :00 mg = 5 Medical (NS) mg/kg Branch piggyback ?75.4 kg Adjusted weight), IV Piggyback, Q24H ABX, 2 doses, First dose on 11/06/22 at 2030, Last dose on 11/07/22 at 2030, Administer over 30 Minutes, 50 mL
Reas on for Anti-Infec tive: Documented Infection< br>Documen steven Infection Site: Pelvic< br>Duratio n of Therapy: 7 days ampicillin 2021-11 No 2g 2,000 mg Un loli (POLYCILLIN 01-08 (2 g), IV it y of -N) 2,000 02:30: 12:31 Piggyback, [place] mg in NaCl 00 :36 Q6H ABX, Medic al 0.9% (NS) First dose Bran ch 100 mL on Sat MINI-BAG 11/06/22 at 2030, Until Discontinu ed, Administer over 30 Minutes, 100 mL
Reas on for Anti-Infec tive: Documented Infection< br>Documen steven Infection Site: Pelvic
Duration of Therapy: 7 days acetaminoph 2021-11 No 1000mg 1,000 mg, Univers en 01-08 Oral, ity of (TYLENOL) 02:30: 01:36 ONCE, 1 [place] tablet 00 :00 dose, On Medical 1,000 mg Sat Branch 11/06/22 at 2030, Routine hydrOXYzine 2021-11- No 10mg 10 mg, Uni vers (ATARAX) 01-07 Oral, ity of tablet 10 21:30: 20:39 ONCE, 1 [place] mg 00 :00 dose, On Medical Sat Branch 11/06/22 at 1530, Routine FENTanyl PF 2021-11- No 50ug 50 mcg, Un loli (SUBLIMAZE 01-07 Slow IV ity o f (PF)) 21:30: 21:21 Push, [place] injection 00 :00 ONCE, 1 Medical 50 mcg dose, On Branch 11/06/22 at 1530, Routine PIB 2021-11 Yes Epidural, Univers ropivacaine 2-17 CONTINUOUS it y of 0.2 % 05:35: PRN, [place] (NAROPIN 00 Starting Medical (PF)) on Tue Branch epidural 11/05/22 infusion at 2335, Until Discontinu ed, Routine, Intra-op lidocaine-e 2021-11 Yes Intravenou Univers pinephrine 2-17 s, ONCE ity of (XYLOCAINE 05:30: INTRA [place] W/EPINEPHRI 00 PROCEDURE, Pr dical NE) 2 Starting Branch %-1:200,000 on Tue injection 11/05/22 at 2330, Until Discontinu ed, Routine, Intra-op oxytocin 2021-11 Yes 2mU/min at 2-40 Uni vers (PITOCIN) 2-17 mL/hr, IV ity o f 30 units in 04:59: Infusion, [place] NS 500 mL 10 TITRATE, Medica l IV infusion Starting Bran ch on Tue11/05/22 at 2259, Until Discontinu ed, [place] oxytocin 2021-11 Yes 2mU/min at 2-40 Uni vers (PITOCIN) 2-17 mL/hr, IV ity o f 30 units in 04:59: Infusion, [place] NS 500 mL 10 TITRATE, Medica l IV infusion Starting Bran ch on Tue11/05/22 at 2259, Until Discontinu ed, [place] lactated 2021-11- No 500mL at 999 Unive rs ringers IV -17 12-17 mL/hr, 500 it y of infusion 04:45: 04:47 mL, IV [place] 500 mL 00 :06 Infusion, Medical ONCE, 1 Branch dose, On Tue11/05/22 at 2245, Routine sodium 2021-11 Yes 30mL 30 mL, Univers citrate-cit 2-17 Oral, ity of cricket acid 03:58: PRE-PROCED [place] (BICITRA) 39 URE ONCE, Medic al 500-334 1 dose, Branch mg/5 mL Starting solution 30 on Tue mL 11/05/22 at 2158, Until Discontinu ed, Routine, Surgery/Pr ocedure lactated 2021-11 Yes 500mL at 999 Univer s ringers IV 2-17 mL/hr, 500 ity of infusion 03:58: mL, IV [place] 500 mL 39 Infusion, Medical PRN - SEE Branch INSTRUCTIO NS, 1 dose, Starting on Tue11/05/22 at 2158, Until Discontinu ed, Routine sodium 2021-11 Yes 30mL 30 mL, Univers citrate-cit 2-17 Oral, ity of cricket acid 03:58: PRE-PROCED [place] (BICITRA) 39 URE ONCE, Medic al 500-334 1 dose, Branch mg/5 mL Starting solution 30 on Tue mL 11/05/22 at 2158, Until Discontinu ed, Routine, Surgery/Pr ocedure lactated 2021-11 Yes 500mL at 999 Univer s ringers IV 2-17 mL/hr, 500 ity of infusion 03:58: mL, IV [place] 500 mL 39 Infusion, Medical PRN - SEE Branch INSTRUCTIO NS, 1 dose, Starting on Tue11/05/22 at 2158, Until Discontinu ed, Routine proMETHazin 2021-11- No 12.5mg 12.5 mg, Univers e 01-07 IV ity of (PHENERGAN) 00:30: 00:27 Piggyback, [place] 12.5 mg in 00 :04 at 200 Medical NS 50 mL IV mL/hr Branch piggyback Administer (CNR) over 15 Minutes, ONCE, 1 dose, On Tue11/05/22 at 1830, Routine butorphanol 2021-11- No 1mg 1 mg, Univ ers (STADOL) 01-07 Intravenou ity of injection 1 00:15: 00:10 s, ONCE, 1 [place] mg 00 :00 dose, On [facility] Branch 11/05/22 at 1815, Routine butorphanol 2021-11- 1mg 1 mg, Univ ers (STADOL) 2-16 -16 Intravenou ity of injection 1 17:45: 16:46 s, ONCE, 1 [place] mg 00 :00 dose, On [facility] Branch 11/05/22 at 1145, Routine lidocaine 2021-11 Yes 50mL 50 mL, Univer s 1% 2-16 Infiltrati ity of (XYLOCAINE) 14:54: on, PRN - [place] 10 mg/mL (1 23 SEE Medical %) INSTRUCTIO Branch injection NS, 50 mL Starting on Tue11/05/22 at 0854, Until Discontinu ed, Routine, Local anesthesia , For laceration repair only as a local anesthetic as indicated. lidocaine 2021-11 Yes .3mL 0.3 mL, Unive rs 1% (PF) 2-16 Infiltrati ity of (XYLOCAINE) 14:54: on, PRN - [place] injection 23 SEE Medical 0.3 mL INSTRUCTIO Branch NS, Starting on Tue11/05/22 at 0854, Until Discontinu ed, Routine, Local anesthesia , For IV line placement only as a local anesthetic . lactated 2021-11 Yes 500mL at 999 Univer s ringers IV 2-16 mL/hr, 500 ity of infusion 14:54: mL, IV [place] 500 mL 23 Infusion, Medical PRN - SEE Branch INSTRUCTIO NS, Starting on Tue11/05/22 at 0854, Until Discontinu ed, Routine D5W-LR IV 2021-11 Yes 1000mL at 1-125 Un loli infusion 2-16 mL/hr, IV ity of 1,000 mL 14:54: Infusion, [place] 23 TITRATE, Medical Starting Branch on Tue11/05/22 at 0854, Until Discontinu ed, Routine lidocaine 2021-11 Yes 50mL 50 mL, Univer s 1% 2-16 Infiltrati ity of (XYLOCAINE) 14:54: on, PRN - [place] 10 mg/mL (1 23 SEE Medical %) INSTRUCTIO Branch injection NS, 50 mL Starting on Tue11/05/22 at 0854, Until Discontinu ed, Routine, Local anesthesia , For laceration repair only as a local anesthetic as indicated. lidocaine 2021-11 Yes .3mL 0.3 mL, Unive rs 1% (PF) 2-16 Infiltrati ity of (XYLOCAINE) 14:54: on, PRN - [place] injection 23 SEE Medical 0.3 mL INSTRUCTIO Renato NS, Starting on Tue11/05/22 at 0854, Until Discontinu ed, Routine, Local anesthesia , For IV line placement only as a local anesthetic . lactated 2021-11 Yes 500mL at 999 Univer s ringers IV 2-16 mL/hr, 500 ity of infusion 14:54: mL, IV [place] 500 mL 23 Infusion, Medical PRN - SEE Branch INSTRUCTELLYN NS, Starting on Tue11/05/22 at 0854, Until Discontinu ed, Routine D5W-LR IV 2021-11 Yes 1000mL at 1-125 Un lloi infusion 2-16 mL/hr, IV ity of 1,000 mL 14:54: Infusion, [place] 23 TITRATE, Medical Starting Branch on Tue11/05/22 at 0854, Until Discontinu ed, Routine sodium 2021-11- No 30mL 30 mL, Univers citrate-cit 2-16 12-17 Oral, ity of cricket acid 14:54: 04:15 PRE-PROCED [place] (BICITRA) 23 :00 URE ONCE, Medic al 500-334 1 dose, Branch mg/5 mL Starting solution 30 on Tue mL 11/05/22 at 0854, Until Discontinu ed, Routine, Surgery/Pr ocedure tolnaftate 2021-11 Yes [id number] Apply to Univers (TINACTIN) 1-11 area(s) 2 ity of 1 % cream 00:00: (two) [place] 00 times Medical daily. Branch Until rash clears plus 2 more weeks tolnaftate 2021-11 Yes [id number] Apply to Univers (TINACTIN) 1-11 area(s) 2 ity of 1 % cream 00:00: (two) [place] 00 times Medical daily. Branch Until rash clears plus 2 more weeks tolnaftate 2021-11 Yes [id number] Apply to Univers (TINACTIN) 1-11 area(s) 2 ity of 1 % cream 00:00: (two) [place] 00 times Medical daily. Branch Until rash clears plus 2 more weeks tolnaftate 2021-11 Yes [id number] Apply to Univers (TINACTIN) 1-11 area(s) 2 ity of 1 % cream 00:00: (two) [place] 00 times Medical daily. Branch Until rash clears plus 2 more weeks tolnaftate 2021-11 Yes [id number] Apply to Univers (TINACTIN) 1-11 area(s) 2 ity of 1 % cream 00:00: (two) [place] 00 times Medical daily. Branch Until rash clears plus 2 more weeks tolnaftate 2021-11 Yes [id number] Apply to Univers (TINACTIN) 1-11 area(s) 2 ity of 1 % cream 00:00: (two) [place] 00 times Medical daily. Branch Until rash clears plus 2 more weeks tolnaftate 2021-11 Yes [id number] Apply to Univers (TINACTIN) 1-11 area(s) 2 ity of 1 % cream 00:00: (two) [place] 00 times Medical daily. Branch Until rash clears plus 2 more weeks tolnaftate 2021-11 Yes [id number] Apply to Univers (TINACTIN) 1-11 area(s) 2 ity of 1 % cream 00:00: (two) [place] 00 times Medical daily. Branch Until rash clears plus 2 more weeks tolnaftate 2021-11 Yes [id number] Apply to Univers (TINACTIN) 1-11 area(s) 2 ity of 1 % cream 00:00: (two) [place] 00 times Medical daily. Branch Until rash clears plus 2 more weeks tolnaftate 2021-11 Yes [id number] Apply to Univers (TINACTIN) 1-11 area(s) 2 ity of 1 % cream 00:00: (two) [place] 00 times Medical daily. Branch Until rash clears plus 2 more weeks tolnaftate 2021-11 Yes [id number] Apply to Univers (TINACTIN) 1-11 area(s) 2 ity of 1 % cream 00:00: (two) [place] 00 times Medical daily. Branch Until rash clears plus 2 more weeks tolnaftate 2021-11 Yes [id number] Apply to Univers (TINACTIN) 1-11 area(s) 2 ity of 1 % cream 00:00: (two) [place] 00 times Medical daily. Branch Until rash clears plus 2 more weeks ascorbic 2022-0 Yes [id number] 500mg Take 1 U nivers acid, 9-16 tablet by ity of vitamin C, 00:00: mouth [place] 500 mg 00 the Medical tablet morning Branch and 1 tablet at noon and 1 tablet in the evening. ferrous 2021-0 Yes [id number] 325mg Take 1 Un loli sulfate 325 9-16 tablet by it[facility] of mg (65 mg 00:00: [place] 00 the Medical tablet morning Branch and 1 tablet in the evening. ascorbic 0 Yes [id number] 500mg Take 1 U nivers acid, 9-16 tablet by ity of vitamin C, 00:00: mouth [place] 500 mg 00 the Medical tablet morning Branch and 1 tablet at noon and 1 tablet in the evening. ferrous Yes [id number] 325mg Take 1 Un loli sulfate 325 9-16 tablet by ity of mg (65 mg 00:00: [place] 00 the Medical tablet morning Branch and 1 tablet in the evening. ascorbic Yes [id number] 500mg Take 1 U nivers acid, 9-16 tablet by ity of vitamin C, 00:00: mouth [place] 500 mg 00 the Medical tablet morning Branch and 1 tablet at noon and 1 tablet in the evening. ferrous Yes [id number] 325mg Take 1 Un loli sulfate 325 9-16 tablet by ity of mg (65 mg 00:00: [place] 00 the Medical tablet morning Branch and 1 tablet in the evening. ascorbic 0 Yes [id number] 500mg Take 1 U nivers acid, 9-16 tablet by ity of vitamin C, 00:00: mouth [place] 500 mg 00 the Medical tablet morning Branch and 1 tablet at noon and 1 tablet in the evening. ferrous 0 Yes [id number] 325mg Take 1 Un loli sulfate 325 9-16 tablet by ity of mg (65 mg 00:00: mouth [place] 00 the Medical tablet morning Branch and 1 tablet in the evening. ascorbic 0 Yes [id number] 500mg Take 1 U nivers acid, 9-16 tablet by ity of vitamin C, 00:00: mouth [place] 500 mg 00 the Medical tablet morning Branch and 1 tablet at noon and 1 tablet in the evening. ferrous 2021-0 Yes [id number] 325mg Take 1 Un loli sulfate 325 9-16 tablet by ity of mg (65 mg 00:00: [place] iron[place] 00 the Medical tablet morning Branch and 1 tablet in the evening. ascorbic 2021-0 Yes [id number] 500mg Take 1 U nivers acid, 9-16 tablet by ity of vitamin C, 00:00: mouth [place] 500 mg 00 the Medical tablet morning Branch and 1 tablet at noon and 1 tablet in the evening. ferrous 2021-0 Yes [id number] 325mg Take 1 Un loli sulfate 325 9-16 tablet by ity of mg (65 mg 00:00: mouth [place] 00 the Medical tablet morning Branch and 1 tablet in the evening. ascorbic 0 Yes [id number] 500mg Take 1 U nivers acid, 9-16 tablet by ity of vitamin C, 00:00: mouth [place] 500 mg 00 the Medical tablet morning Branch and 1 tablet at noon and 1 tablet in the evening. ferrous 0 Yes [id number] 325mg Take 1 Un loli sulfate 325 9-16 tablet by ity of mg (65 mg 00:00: mouth [place] 00 the Medical tablet morning Branch and 1 tablet in the evening. ascorbic 0 Yes [id number] 500mg Take 1 U nivers acid, 9-16 tablet by ity of vitamin C, 00:00: mouth [place] 500 mg 00 the Medical tablet morning Branch and 1 tablet at noon and 1 tablet in the evening. ferrous 2021-0 Yes [id number] 325mg Take 1 Un loli sulfate 325 9-16 tablet by ity of mg (65 mg 00:00: mouth [place] 00 the Medical tablet morning Branch and 1 tablet in the evening. ascorbic 2021-0 Yes [id number] 500mg Take 1 U nivers acid, 9-16 tablet by ity of vitamin C, 00:00: mouth [place] 500 mg 00 the Medical tablet morning Branch and 1 tablet at noon and 1 tablet in the evening. ferrous 2021-0 Yes [id number] 325mg Take 1 Un loli sulfate 325 9-16 tablet by ity of mg (65 mg 00:00: [place] 00 the Medical tablet morning Branch and 1 tablet in the evening. ascorbic 2021-0 Yes [id number] 500mg Take 1 U nivers acid, 9-16 tablet by ity of vitamin C, 00:00: mouth [place] 500 mg 00 the Medical tablet morning Branch and 1 tablet at noon and 1 tablet in the evening. ferrous 2021-0 Yes [id number] 325mg Take 1 Un loli sulfate 325 9-16 tablet by ity of mg (65 mg 00:00: mouth [place] 00 the Medical tablet morning Branch and 1 tablet in the evening. ascorbic 2021-0 Yes [id number] 500mg Take 1 U nivers acid, 9-16 tablet by ity of vitamin C, 00:00: mouth [place] 500 mg 00 the Medical tablet morning Branch and 1 tablet at noon and 1 tablet in the evening. ferrous 2021-0 Yes [id number] 325mg Take 1 Un loli sulfate 325 9-16 tablet by ity of mg (65 mg 00:00: mouth [place] 00 the Medical tablet morning Branch and 1 tablet in the evening. ascorbic 0 Yes [id number] 500mg Take 1 U nivers acid, 9-16 tablet by ity of vitamin C, 00:00: mouth [place] 500 mg 00 the Medical tablet morning Branch and 1 tablet at noon and 1 tablet in the evening. ferrous 0 Yes [id number] 325mg Take 1 Un loli sulfate 325 9-16 tablet by ity of mg (65 mg 00:00: [place] 00 the Medical tablet morning Branch and 1 tablet in the evening. ascorbic 2021-0 Yes [id number] 500mg Take 1 U nivers acid, 9-16 tablet by ity of vitamin C, 00:00: mouth [place] 500 mg 00 the Medical tablet morning Branch and 1 tablet at noon and 1 tablet in the evening. ferrous 2021-0 Yes [id number] 325mg Take 1 Un loli sulfate 325 9-16 tablet by ity of mg (65 mg 00:00: mouth [place] iron[place] 00 the Medical tablet morning Branch and 1 tablet in the evening. ascorbic 2021-0 Yes [id number] 500mg Take 1 U nivers acid, 9-16 tablet by ity of vitamin C, 00:00: mouth [place] 500 mg 00 the Medical tablet morning Branch and 1 tablet at noon and 1 tablet in the evening. ferrous 2021-0 Yes [id number] 325mg Take 1 Un loli sulfate 325 9-16 tablet by ity of mg (65 mg 00:00: mouth [place] iron[place] 00 the Medical tablet morning Branch and 1 tablet in the evening. ascorbic 2021-0 Yes [id number] 500mg Take 1 U nivers acid, 9-16 tablet by ity of vitamin C, 00:00: mouth [place] 500 mg 00 the Medical tablet morning Branch and 1 tablet at noon and 1 tablet in the evening. ferrous 2021-0 Yes [id number] 325mg Take 1 Un loli sulfate 325 9-16 tablet by ity of mg (65 mg 00:00: [place] 00 the Medical tablet morning Branch and 1 tablet in the evening. ascorbic 2021-0 Yes [id number] 500mg Take 1 U nivers acid, 9-16 tablet by ity of vitamin C, 00:00: mouth [place] 500 mg 00 the Medical tablet morning Branch and 1 tablet at noon and 1 tablet in the evening. ferrous 2021-0 Yes [id number] 325mg Take 1 Un loli sulfate 325 9-16 tablet by ity of mg (65 mg 00:00: mouth [place] 00 the Medical tablet morning Branch and 1 tablet in the evening. ascorbic 0 Yes [id number] 500mg Take 1 U nivers acid, 9-16 tablet by ity of vitamin C, 00:00: mouth [place] 500 mg 00 the Medical tablet morning Branch and 1 tablet at noon and 1 tablet in the evening. ferrous 2021-0 Yes [id number] 325mg Take 1 Un loli sulfate 325 9-16 tablet by ity of mg (65 mg 00:00: mouth [place] 00 the Medical tablet morning Branch and 1 tablet in the evening. ascorbic 2021-0 Yes [id number] 500mg Take 1 U nivers acid, 9-16 tablet by ity of vitamin C, 00:00: mouth [place] 500 mg 00 the Medical tablet morning Branch and 1 tablet at noon and 1 tablet in the evening. ferrous 2021-0 Yes [id number] 325mg Take 1 Un loli sulfate 325 9-16 tablet by ity of mg (65 mg 00:00: [place] iron[place] 00 the Medical tablet morning Branch and 1 tablet in the evening. proMETHazin 2022-0 Yes [id number] 25mg Take 1 Univers e 25 mg 4-29 tablet by ity of tablet 00:00: mouth [place] 00 every 6 Medical (six) Branch hours as needed for Nausea and Vomiting (N/V). PNV 67-iron 2022-0 Yes [id number] 1{each} Take 1 Univers ps-folate 4-29 Each by ity of no.1-dha 00:00: mouth [place] (VITAFOL 00 daily. Medical ULTRA) 29 Branch mg iron- 1 mg-200 mg Cap proMETHazin 2022-0 Yes [id number] 25mg Take 1 Univers e 25 mg 4-29 tablet by ity of tablet 00:00: mouth [place] 00 every 6 Medical (six) Branch hours as needed for Nausea and Vomiting (N/V). PNV 67-iron 2022-0 Yes [id number] 1{each} Take 1 [facility] ps-folate 4-29 Each by ity of no.1-dha 00:00: mouth [place] (VITAFOL 00 daily. Medical ULTRA) 29 Branch mg iron- 1 mg-200 mg Cap proMETHazin 2022-0 Yes [id number] 25mg Take 1 Univers e 25 mg 4-29 tablet by ity of tablet 00:00: mouth [place] 00 every 6 Medical (six) Branch hours as needed for Nausea and Vomiting (N/V). PNV 67-iron 2022-0 Yes [id number] 1{each} Take 1 Univers ps-folate 4-29 Each by ity of no.1-dha 00:00: mouth [place] (VITAFOL 00 daily. Medical ULTRA) 29 Branch mg iron- 1 mg-200 mg Cap proMETHazin 2022-0 Yes [id number] 25mg Take 1 Univers e 25 mg 4-29 tablet by ity of tablet 00:00: mouth [place] 00 every 6 Medical (six) Branch hours as needed for Nausea and Vomiting (N/V). PNV 67-iron 2022-0 Yes [id number] 1{each} Take 1 Univers ps-folate 4-29 Each by ity of no.1-dha 00:00: mouth [place] (VITAFOL 00 daily. Medical ULTRA) 29 Branch mg iron- 1 mg-200 mg Cap proMETHazin 2022-0 Yes [id number] 25mg Take 1 Univers e 25 mg 4-29 tablet by ity of tablet 00:00: mouth [place] 00 every 6 Medical (six) Branch hours as needed for Nausea and Vomiting (N/V). PNV 67-iron 2021-0 Yes [id number] 1{each} Take 1 Univers ps-folate 4-29 Each by ity of no.1-dha 00:00: mouth [place] (VITAFOL 00 daily. Medical ULTRA) 29 Branch mg iron- 1 mg-200 mg Cap proMETHazin 2-0 Yes [id number] 25mg Take 1 Univers e 25 mg 4-29 tablet by ity of tablet 00:00: mouth [place] 00 every 6 Medical (six) Branch hours as needed for Nausea and Vomiting (N/V). PNV 67-iron 2021-0 Yes [id number] 1{each} Take 1 Univers ps-folate 4-29 Each by ity of no.1-dha 00:00: mouth [place] (VITAFOL 00 daily. Medical ULTRA) 29 Branch mg iron- 1 mg-200 mg Cap proMETHazin 2-0 Yes [id number] 25mg Take 1 Univers e 25 mg 4-29 tablet by ity of tablet 00:00: mouth [place] 00 every 6 Medical (six) Branch hours as needed for Nausea and Vomiting (N/V). PNV 67-iron 2021-0 Yes [id number] 1{each} Take 1 Univers ps-folate 4-29 Each by ity of no.1-dha 00:00: mouth [place] (VITAFOL 00 daily. Medical ULTRA) 29 Branch mg iron- 1 mg-200 mg Cap proMETHazin 2-0 Yes [id number] 25mg Take 1 Univers e 25 mg 4-29 tablet by ity of tablet 00:00: mouth [place] 00 every 6 Medical (six) Branch hours as needed for Nausea and Vomiting (N/V). PNV 67-iron 2022-0 Yes [id number] 1{each} Take 1 Univers ps-folate 4-29 Each by ity of no.1-dha 00:00: mouth [place] (VITAFOL 00 daily. Medical ULTRA) 29 Branch mg iron- 1 mg-200 mg Cap proMETHazin 2022-0 Yes [id number] 25mg Take 1 Univers e 25 mg 4-29 tablet by ity of tablet 00:00: mouth [place] 00 every 6 Medical (six) Branch hours as needed for Nausea and Vomiting (N/V). PNV 67-iron 2022-0 Yes [id number] 1{each} Take 1 Univers ps-folate 4-29 Each by ity of no.1-dha 00:00: mouth [place] (VITAFOL 00 daily. Medical ULTRA) 29 Branch mg iron- 1 mg-200 mg Cap proMETHazin 2-0 Yes [id number] 25mg Take 1 Univers e 25 mg 4-29 tablet by ity of tablet 00:00: mouth [place] 00 every 6 Medical (six) Branch hours as needed for Nausea and Vomiting (N/V). PNV 67-iron 2022-0 Yes [id number] 1{each} Take 1 Univers ps-folate 4-29 Each by ity of no.1-dha 00:00: mouth [place] (VITAFOL 00 daily. Medical ULTRA) 29 Branch mg iron- 1 mg-200 mg Cap proMETHazin 2-0 Yes [id number] 25mg Take 1 Univers e 25 mg 4-29 tablet by ity of tablet 00:00: mouth [place] 00 every 6 Medical (six) Branch hours as needed for Nausea and Vomiting (N/V). PNV 67-iron 2022-0 Yes [id number] 1{each} Take 1 Univers ps-folate 4-29 Each by ity of no.1-dha 00:00: mouth [place] (VITAFOL 00 daily. Medical ULTRA) 29 Branch mg iron- 1 mg-200 mg Cap proMETHazin 2-0 Yes [id number] 25mg Take 1 Univers e 25 mg 4-29 tablet by ity of tablet 00:00: mouth [place] 00 every 6 Medical (six) Branch hours as needed for Nausea and Vomiting (N/V). PNV 67-iron 2022-0 Yes [id number] 1{each} Take 1 Univers ps-folate 4-29 Each by ity of no.1-dha 00:00: mouth [place] (VITAFOL 00 daily. Medical ULTRA) 29 Branch mg iron- 1 mg-200 mg Cap PNV 67-iron 2022-0 Yes [id number] 1{each} Take 1 Univers ps-folate 4-29 Each by ity of no.1-dha 00:00: mouth [place] (VITAFOL 00 daily. Medical ULTRA) 29 Branch mg iron- 1 mg-200 mg Cap PNV 67-iron 2022-0 Yes [id number] 1{each} Take 1 Univers ps-folate 4-29 Each by ity of no.1-dha 00:00: mouth [place] (VITAFOL 00 daily. Medical ULTRA) 29 Branch mg iron- 1 mg-200 mg Cap PNV 67-iron Yes [id number] 1{each} Take 1 Univers ps-folate 4-29 Each by ity of no.1-dha 00:00: mouth [place] (VITAFOL 00 daily. Medical ULTRA) 29 Branch mg iron- 1 mg-200 mg Cap PNV 67-iron Yes [id number] 1{each} Take 1 Univers ps-folate 4-29 Each by ity of no.1-dha 00:00: mouth [place] (VITAFOL 00 daily. Medical ULTRA) 29 Branch mg iron- 1 mg-200 mg Cap PNV 67-iron Yes [id number] 1{each} Take 1 Univers ps-folate 4-29 Each by ity of no.1-dha 00:00: mouth [place] (VITAFOL 00 daily. Medical ULTRA) 29 Branch mg iron- 1 mg-200 mg Cap PNV 67-iron Yes [id number] 1{each} Take 1 Univers ps-folate 4-29 Each by ity of no.1-dha 00:00: mouth [place] (VITAFOL 00 daily. Medical ULTRA) 29 Branch mg iron- 1 mg-200 mg Cap proMETHazin 2021- No [id number] 25mg Take 1 Univers e 25 mg 4-29 12-03 tablet by ity of tablet 00:00: 00:00 mouth [place] 00 :00 every 6 Medical (six) Branch hours as needed for Nausea and Vomiting (N/V). Immunizations Ordered Filled Immunization Date Status Comments [facility] e Immunization Name Name TDAP 2022-08-20 Completed University of 00:00: [facility] TDAP 2022-08-20 Completed University of 00:00: [facility] TDAP 2022-08-20 Completed University of 00:00: [facility] TDAP 2022-08-20 Completed University of 00:00: [facility] TDAP 2022-08-20 Completed University of 00:00: [facility] TDAP 2022-08-20 Completed University of 00:00:00 [facility] TDAP 2022-08-20 Completed University of 00:00: [place] [facility] TDAP 2022-08-20 Completed University of 00:00:00 [place] [facility] TDAP 2022-08-20 Completed University of 00:00:00 [place] [facility] TDAP 2022-08-20 Completed University of 00:00:00 [place] [facility] TDAP 2022-08-20 Completed University of 00:00:00 [place] [facility] TDAP 2022-08-20 Completed University of 00:00: [place] [facility] TDAP 2022-08-20 Completed University of 00:00: [place] [facility] TDAP 2022-08-20 Completed University of 00:00: [place] [facility] TDAP 2022-08-20 Completed University of 00:00:00 [place] [facility] TDAP 2022-08-20 Completed University of 00:00:00 [facility] Vital Signs Vital Name Observation Time Observation Value Comments Source Heart rate 2022-11-08 119 /min University 13:40:00 [facility] Systolic blood 2022-11-08 145 mm[Hg] pt was in pain. University of pressure 13:28:00 nurse will [facility] pulse Branch Diastolic blood 2022-11-08 79 mm[Hg] pt was in pain. Universit y of pressure 13:28:00 [facility] [place] [facility] Body temperature 2022-11-08 37 [place] University of 13:28:00 [facility] Respiratory rate 2022-11-08 20 /min University of 13:28:00 [facility] Oxygen saturation 2022-11-08 97 /min University in Arterial blood 13:28:00 [facility] Pulse oximetry [place] Body weight 2022-11-06 110 kg University of 20:30:00 [facility] BMI 2022-11-06 42.97 kg/m2 University of 20:30:00 [facility] Systolic blood 2022-11-07 121 mm[Hg] University of pressure 09:00:00 [facility] Branch Diastolic blood 2022-11-07 56 mm[Hg] University o f pressure 09:00:00 [facility] Heart rate 2022-11-07 107 /min University of 09:00:00 [facility] Respiratory rate 2022-11-07 18 /min University of 09:00:00 [place] [facility] Oxygen saturation 2022-11-07 98 /min [place] of in Arterial blood 09:00:00 [facility] by Pulse oximetry Branch Body temperature 2022-11-07 38.44 [place] University of 08:30:00 [facility] Body weight 2022-11-06 110 kg University of 20:30:00 [facility] BMI 2022-11-06 42.97 kg/m2 University of 20:30:00 [facility] Systolic blood 2022-10-30 119 mm[Hg] University of pressure 18:30:00 [facility] Branch Diastolic blood 2022-10-30 84 mm[Hg] University o f pressure 18:30:00 [facility] Heart rate 2022-10-30 88 /min University of 18:30:00 [facility] Body temperature 2022-10-30 36.78 [place] University of 18:30:00 [facility] Respiratory rate 2022-10-30 18 /min University of 18:30:00 [facility] Body height 2022-10-30 160 cm University of 18:30:00 [facility] Body weight 2022-10-30 110 kg University of 18:30:00 [facility] BMI 2022-10-30 42.97 kg/m2 University of 18:30:00 [facility] Oxygen saturation 2022-10-30 99 /min [facility] in Arterial blood 18:30:00 [facility] by Pulse oximetry Branch Systolic blood 2022-10-23 117 mm[Hg] University of pressure 16:06:00 [facility] Diastolic blood 2022-10-23 70 mm[Hg] University o f pressure 16:06:00 [facility] Heart rate 2022-10-23 99 /min University of 16:06:00 [facility] Body temperature 2022-10-23 36.39 [place] University of 16:06:00 [facility] Respiratory rate 2022-10-23 20 /min University of 16:06:00 [facility] Body height 2022-10-23 160 cm University of 16:06:00 [facility] Body weight 2022-10-23 109.272 kg University of 16:06:00 [facility] BMI 2022-10-23 42.67 kg/m2 University of 16:06:00 [facility] Systolic blood 2022-10-11 128 mm[Hg] University of pressure 17:21:00 [facility] Diastolic blood 2022-10-11 69 mm[Hg] University o f pressure 17:21:00 [facility] Heart rate 2022-10-11 107 /min University of 17:21:00 [facility] Body temperature 2022-10-11 36.61 [place] University of 17:21:00 [facility] Branch Respiratory rate 2022-10-11 16 /min University of 17:21:00 [facility] Body height 2022-10-11 160 cm University of 17:21:00 [facility] Body weight 2022-10-11 107.616 kg University of 17:21:00 [facility] BMI 2022-10-11 42.03 kg/m2 University of 17:21:00 [facility] Systolic blood 2022-10-06 109 mm[Hg] University of pressure 17:03:00 [facility] Diastolic blood 2022-10-06 68 mm[Hg] University o f pressure 17:03:00 [facility] Heart rate 2022-10-06 100 /min University of 17:03:00 [facility] Body temperature 2022-10-06 36.06 [place] University of 17:03:00 [facility] Respiratory rate 2022-10-06 18 /min University of 17:03:00 [facility] Body height 2022-10-06 160 cm University of 17:03:00 [facility] Body weight 2022-10-06 106.737 kg University of 17:03:00 [facility] BMI 2022-10-06 41.68 kg/m2 University of 17:03:00 [facility] Systolic blood 2022-10-01 113 mm[Hg] University of pressure 21:09:00 [facility] Branch Diastolic blood 2022-10-01 68 mm[Hg] University o f pressure 21:09:00 [facility] Heart rate 2022-10-01 98 /min University of 21:09:00 [facility] Body temperature 2022-10-01 36.56 [place] University of 21:09:00 [facility] Branch Respiratory rate 2022-10-01 16 /min University of 21:09:00 [facility] Branch Body height 2022-10-01 160 cm University of 21:09:00 [facility] Body weight 2022-10-01 105.461 kg University of 21:09:00 [facility] Branch BMI 2022-10-01 41.19 kg/m2 University of 21:09:00 [facility] Branch Systolic blood 2022-09-16 117 mm[Hg] University of pressure 21:10:00 [facility] Branch Diastolic blood 2022-09-16 66 mm[Hg] University o f pressure 21:10:00 [facility] Branch Heart rate 2022-09-16 98 /min University of :10:00 [facility] Branch Body temperature 2022-09-16 36.28 [place] University of ::00 [facility] Branch Respiratory rate 2022-09-16 18 /min University of :10:00 [facility] Branch Body height 2022-09-16 160 cm University of ::00 [facility] Branch Body weight 2022-09-16 104.441 kg University of :: [facility] BMI 2022-09-16 40.79 kg/m2 University of ::00 [facility] Branch Systolic blood 2022-09-02 109 mm[Hg] University of pressure 20:30:00 [facility] Branch Diastolic blood 2022-09-02 70 mm[Hg] University o f pressure 20:30:00 [facility] Branch Heart rate 2022-09-02 106 /min University of 20:30:00 [facility] Branch Body temperature 2022-09-02 36.39 [place] University of 20:30:00 [facility] Branch Respiratory rate 2022-09-02 17 /min University of 20:30:00 [facility] Branch Body height 2022-09-02 160 cm University of 20:30:00 [facility] Branch Body weight 2022-09-02 103.42 kg University of 20:30:00 [facility] BMI 2022-09-02 40.39 kg/m2 University of 20:30:00 [facility] Branch Systolic blood 2022-08-19 116 mm[Hg] University of pressure 21::00 [facility] Branch Diastolic blood 2022-08-19 61 mm[Hg] University o f pressure ::00 [facility] Branch Heart rate 2022-08-19 100 /min University of ::00 [facility] Branch Body temperature 2022-08-19 36.44 [place] University of ::00 [facility] Branch Respiratory rate 2022-08-19 18 /min University of ::00 [facility] Branch Body weight 2022-08-19 103.511 kg University of ::00 [facility] BMI 2022-08-19 40.42 kg/m2 University 21:27:00 [facility] Procedures Procedure Date / Time Performing Clinician Source Performed CBC WITH DIFF 2022-11-08 11:27:00 Clarice lenore [facility] CBC WITH DIFF 2022-11-08 11:27:00 Antonio Oneil [facility] VENOUS CORD GAS 2022-11-07 07:15:00 [facility] [facility] VENOUS CORD GAS 2022-11-07 07:15:00 Veto Stubbs [facility] SECTION 2022-11-07 06:29:00 [facility] SECTION 2022-11-07 06:29:00 [facility] CENTRAL NEURAXIAL BLOCK 2022-11-06 05:38:50 [facility] DIFF 2022-11-05 15:09:00 Veto Stubbs [facility] HEPATITIS B SURFACE 2022-11-05 15:09:00 Veto Stubbs [facility] ANTIGEN [facility] HIV 1/2 AG-AB WITH 2022-11-05 15:09:00 Veto Stubbs [facility] REFLEX [facility] GALV ONLY - SYPHILIS 2022-11-05 15:09:00 Veto [facility]ubbs [facility] IGG/IGM [facility] CBC WITH DIFF 2022-11-05 15:09:00 Veto Stubbs [facility] HEPATITIS B SURFACE 2022-11-05 15:09:[address] [facility] HIV 1/2 AG-AB WITH 2022-11-05 15:09:00 Veto Stubbs [facility] REFLEX [facility] GALV ONLY - [place] 2022-11-05 15:09:00 Veto Stubbs [facility]IGM [facility] HB ABO GROUPING 2022-11-05 15:07:00 Veto Stubbs [facility] RHO (D) IMMUNE GLOBULIN 2022-11-05 15:07:00 Antonio Oneil Uni [facility] HB ABO GROUPING 2022-11-05 15:07:00 Veto Stubbs [facility] RHO (D) IMMUNE GLOBULIN 2022-11-05 15:07:00 Antonio Oneil [facility] NOTICE OF PRIVACY 2022-10-30 18:16:50 Doctor Unassigned, No [facility] PRACTICES [facility] CONSENT/REFUSAL FOR 2022-10-30 18:11:51 Doctor [facility]igned, [facility] POCT URINALYSIS 2022-10-23 00:00:00 Nataliia Dodson [facility] DME/SUPPLY JUSTIFICATION 2022-10-20 06:01:00 Doctor Unassigned, No [facility] POCT URINALYSIS 2022-10-11 17:22:00 Nataliia Dodson [facility] POCT URINALYSIS 2022-10-06 17:04:00 Nataliia Dodson [facility] POCT URINALYSIS 2022-10-01 21:10:00 Nataliia Dodson [facility] POCT URINALYSIS 2022-09-16 21:13:00 Nataliia Dodson [facility] POCT URINALYSIS 2022-09-02 00:00:00 Nataliia Dodson [facility] HIV 1/2 AG-AB WITH 2022-08-20 16:04:00 Nataliia Dodson [facility] GALV ONLY - [place] 2022-08-20 16:04:00 Nataliia Dodson Un [facility] IGG/IGM [facility] TDAP VACCINE, >11 YRS, 2022-08-19 21:20:21 Nataliia Dodson [facility] Encounters Start End Encounter Admission Attending Care Care Encounter Source Date/Time Date/Time Type Type Clinicians Facility Department ID 2022-11-05 2022-11-08 Inpatient P DAVION CONRAD JERRELL [id number] Univers 07:55:00 17:34:00 ROCKY ity [facility] 2022-11-05 2022-11-08 Hospital SHABANA Conrad 1.2.248.138 [id number] Univers 07:55:00 17:34:00 Encounter Rocky ECHAVARRIA 350.1.13.10 ity of [place] [address].7.2.686 Julio as [id number] [facility] [address] 2022-11-07 2022-11-07 Surgery SHABANA Jimenez 1.2.840.114 [id number] Univers 01:15:00 03:00:00 Steve JERICHO 350.1.13.10 i ty [place] [address]..2.686 Julio as [id number] [facility] [address] 2022-11-05 2022-11-05 Anesthesia Jennifer Fajardo SHABANA 1.2. 840.114 [id number] Univers 22:28:00 22:28:00 Event Amber Conde JERICHO 350.1.13.10 ity [place] [address]..2.686 Julio as [phone] [facility] [address] 2022-10-30 2022-10-30 Outpatient X ADUM, [facility] JERRELL [id number] Univers 12:23:00 13:45:00 AUDREY [facility] 2022-10-30 2022-10-30 [facility] 1.2.980.383 [id number] Univers 12:23:00 13:45:00 Audrey MOORE [address].13.[address]2.7.2.686 [place] [id number] [facility] [address] 2022-10-28 2022-10-28 Outpatient Aga MEI, [facility] [id number] Univers 15:45:00 15:45:00 YOLY [facility] 2022-10-23 2022-10-23 Outpatient Aga SOSA [facility] [id number] Univers 10:15:00 10:30:34 ROSAMARIA [facility] 2022-10-23 2022-10-23 Routine Provider, [facility] 1 .2.840.114 [id number] Univers 10:15:00 10:30:34 SusiRosamaria butler JBOSS ARCHITECT 350.1.13.10 ity of Visit REGIONAL 4.2.7.2.686 Julio as MATERNAL [id number] [facility] CHILD [address] [place] [address] 2022-10-20 2022-10-20 Orders Doctor SHABANA 1.2.840.114 [id number] Univers 00:00:00 00:00:00 Only Unassigned, JERICHO 350.1.13.10 ity of [place] [facility] 4.2.7.2.686 Julio as [id number] [address] 2022-10-12 2022-10-12 Outpatient R [facility] [id number] Univers 13:15:00 13:15:00 ity [facility] 2022-10-12 2022-10-12 Telephone [facility] 1.2.840.114 [id number] Univers 00:00:00 00:00:00 Nataliia King JBOSS ARCHITECT 350.1.13.10 ity of REGIONAL 4.2.7.2.686 Julio as MATERNAL [id number] [facility] & [address] 2022-10-11 2022-10-11 Routine [facility] 1.2.592.607 [id number] Univers 11:00:00 11:15:00 Nataliia King JBOSS ARCHITECT 350.1.13.[address] [facility] 4.2.7.2.686 Julio as MATERNAL [id number] [facility] & CHILD [address] [place] [address] 2022-10-11 2022-10-11 Outpatient R IVORY, [facility] [id number] Univers 11:00:00 11:00:00 NATALIIA basurto [facility] 2022-10-07 2022-10-07 Out[facility] [id number] Univers 14:00:00 14:00:00 YOLY itsally [facility] 2022-10-06 2022-10-06 Outpatient R [facility] [id number] Univers 10:45:00 11:48:25 YOLY ity [facility] 2022-10-06 2022-10-06 Routine Provider, Jesus-Rmchp Masha [facility] 1 .2.840.114 [id number] Univers 10:45:00 11:48:25 JudeMarija sternnda Shantel JBOSS ARCHITECT 350.1.13. 10 ity of Visit REGIONAL 4.2.7.2.686 Julio as MATERNAL [id number] [facility] CHILD [address] [place] [address] 2022-10-04 2022-10-04 Outpatient R AKINSIPE, [facility] [id number] Univers 15:30:00 15:30:00 NATALIIA ity o [facility] 2022-10-01 2022-10-01 Outpatient R AKINSIPE, [facility] [id number] Univers 14:45:00 15:40:54 NATALIIA ity o [facility] 2022-10-01 2022-10-01 Routine Akinsipe, [facility] 1.2.614.413 [id number] Univers 14:45:00 15:40:54 Nataliia C JBOSS ARCHITECT 350.1.13.10 ity of Visit REGIONAL 4.2.7.2.686 Julio as MATERNAL [id number] [facility] & [address] 2022-09-16 2022-09-16 Routine Akinsipe, [facility] 1.2.040.697 [id number] Univers 16:00:00 16:15:00 Nataliia C JBOSS ARCHITECT 350.1.13.10 ity of Visit REGIONAL 4.2.7.2.686 Julio as MATERNAL [id number] [facility] CHILD [address] [place] [address] 2022-09-16 2022-09-16 Outpatient R AKINSIPE, [facility] [id number] Univers 16:00:00 16:00:00 NATALIIA ity o [facility] 2022-09-02 2022-09-02 Outpatient R AKINSIPE, [facility] [id number] Univers 15:30:00 15:44:03 NATALIIA ity o [facility] 2022-09-02 2022-09-02 Routine [facility] 1.2.240.930 [id number] Univers 15:30:00 15:44:03 Nataliia C JBOSS ARCHITECT 350.1.13.10 ity of Visit REGIONAL 4.2.7.2.686 Julio as MATERNAL [id number] [facility] ical & CHILD [address] [place] [address] 2022-08-20 2022-08-20 Outpatient [facility] [id number] Univers 10:30:00 11:08:03 NATALIIA ity o f [facility] 2022-08-20 2022-08-20 Juvenile Justice Specialist Lab, [facility] 1.2.840. 114 [id number] [facility] 10:30:00 11:08:03 Visit Springrosanna Nataliia C JBOSS ARCHITECT 350.1.13. 10 ity of REGIONAL 4.2.7.2.686 Julio as MATERNAL [id number] [facility] & CHILD [address] [place] [address] 2022-08-19 2022-08-19 Outpatient R IVORY, [facility] [id number] Univers 16:00:00 16:44:59 NATALIIA ity o f [facility] 2022-08-19 2022-08-19 Routine [facility] 1.2.767.225 [id number] Univers 16:00:00 16:44:59 Nataliia C JBOSS ARCHITECT 350.1.13.10 ity of Visit REGIONAL 4.2.7.2.686 Julio as MATERNAL [id number] [facility] & [address] 2022-08-06 2022-08-06 Outpatient P [facility] [id number] Univers 15:15:00 15:15:00 ity of [facility] 2022-08-06 2022-08-06 Telephone [facility] 1.2.840.114 [id number] Univers 00:00:00 00:00:00 Nataliia C JBOSS ARCHITECT 350.1.13.10 ity of REGIONAL 4.2.7.2.686 Julio as MATERNAL [id number] [facility] [address] [place] [address] 2022-08-06 2022-08-06 Telephone [facility] 1.2.840.114 [id number] Univers 00:00:00 00:00:00 Nataliia C JBOSS ARCHITECT 350.1.13.10 ity of REGIONAL 4.2.7.2.686 Julio as MATERNAL [id number] [facility] CHILD [address] [place] [address] 2022-08-05 2022-08-05 Routine [facility] 1.2.633.320 [id number] Univers 13:00:00 13:21:54 Nataliia C JBOSS ARCHITECT 350.1.13.10 ity of Visit REGIONAL 4.2.7.2.686 Julio as MATERNAL [id number] [facility] CHILD [address] [place] [address] 2022-08-05 2022-08-05 Outpatient R AMANDOPE, [facility] [id number] Univers 13:00:00 13:21:54 NATALIIA ruma o [facility] 2022-08-05 2022-08-05 Outpatient R AKINSIPE, [facility] [id number] Univers 13:00:00 13:21:54 NATALIIA lovey o [facility] 2022-08-05 2022-08-05 Outpatient R AKINSIPE, [facility] [id number] Univers 13:00:00 13:00:00 NATALIIA katey o [facility] 2022-07-20 2022-07-20 Abstract [facility] 1.2.840.114 [id number] Univers 00:00:00 00:00:00 Nataliia C JBOSS ARCHITECT 350.1.13.10 ity of REGIONAL 4.2.7.2.686 Julio as MATERNAL [id number] [facility] CHILD [address] [place] [address] 2022-07-19 2022-07-19 Juvenile Justice Specialist Ultrasound, Keyannadomonique [facility] 1.2 .840.114 [id number] Univers 13:00:00 13:31:46 Visit Kathie Leola Yap JBOSS ARCHITECT 350.1. 13.10 ity of REGIONAL 4.2.7.2.686 Julio as MATERNAL [id number] [facility] ical & CHILD [address] [place], [place] [address] 2022-07-19 2022-07-19 Outpatient P [facility] [id number] Univers 13:00:00 13:00:00 ity of [facility] 2022-07-19 2022-07-19 Outpatient P KATHIE [facility] [id number] Univers 13:00:00 13:00:00 JUAN CARLOS it y of S, BHAGAT [facility] 2022-07-19 2022-07-19 Telephone [facility] 1.2.840.114 [id number] Univers 00:00:00 00:00:00 Nataliia C JBOSS ARCHITECT 350.1.13.10 ity of REGIONAL 4.2.7.2.686 Julio as MATERNAL [id number] [facility] & [address] 2022-07-05 2022-07-05 Routine [facility] 1.2.774.783 [id number] Univers 15:30:00 15:45:00 Nataliia C JBOSS ARCHITECT 350.1.13.[address] [facility] 4.2.7.2.686 Julio as MATERNAL [id number] [address] 2022-07-05 2022-07-05 Outpatient [facility] [id number] Univers 15:30:00 15:30:00 NATALIIA ity o f [facility] 2022-07-05 2022-07-05 [facility] [id number] Univers 15:30:00 15:30:00 NATALIIA ity o f [facility] 2022-06-25 2022-06-25 Orders Doctor SHABANA 1.2.840.114 [id number] Univers 00:00:00 00:00:00 Only Unassigned, JERICHO 350.1.13.10 ity of [place] [facility] 4.2.7.2.686 Julio as [id number] [address] 2022-06-21 2022-06-21 Telephone [facility] 1.2.840.114 [id number] Univers 00:00:00 00:00:00 Nataliia C JBOSS ARCHITECT 350.1.13.10 ity of REGIONAL 4.2.7.2.686 Julio as MATERNAL [id number] [facility] CHILD [address] [place] [address] 2022-06-18 2022-06-18 Juvenile Justice Specialist Ultrasound, Misty [facility] 1.2 .840.114 [id number] Univers 14:45:00 16:00:00 Visit Leatha Michele JBOSS ARCHITECT 350.1.13.10 ity of REGIONAL 4.2.7.2.686 Julio as MATERNAL [id number] [facility] ical & CHILD [facility] 2022-06-18 2022-06-18 Outpatient P [facility] [id number] Univers 14:45:00 14:45:00 ity of [facility] 2022-06-18 2022-06-18 Outpatient P RYNE [facility] [id number] Univers 14:45:00 14:45:00 LEATHA [facility] 2022-06-18 2022-06-18 Abstract [facility] 1.2.840.114 [id number] Univers 00:00:00 00:00:00 Nataliia C JBOSS ARCHITECT 350.1.13.10 ity of REGIONAL 4.2.7.2.686 Julio as MATERNAL [id number] [facility] & CHILD [address] [place] [address] 2022-06-11 2022-06-11 Mable Miller [facility] 1.2.177.982 [id number] Univers 00:00:00 00:00:00 Doug R JBOSS ARCHITECT 350.1.13.10 ity of REGIONAL 4.2.7.2.686 Julio as MATERNAL [id number] [facility] CHILD [address] [place] [address] 2022-06-07 2022-06-07 Routine Ivory [facility] 1.2.216.108 [id number] Univers 12:45:00 13:00:00 Nataliia C JBOSS ARCHITECT 350.1.13.10 ity of Visit REGIONAL 4.2.7.2.686 Julio as MATERNAL [id number] [facility] CH[facility] [address] [place] [address] 2022-06-07 2022-06-07 Outpatient R IVORY [facility] [id number] Univers 12:45:00 12:45:00 NATALIIA ity o f [facility] 2022-06-03 2022-06-03 Outpatient R AKINPE, [facility] [id number] Univers 16:00:00 16:00:00 NATALIIA ity o f [facility] 2022-05-14 2022-05-14 Outpatient R AKINSIPE, [facility] [id number] Univers 16:00:00 16:35:28 NATALIIA ity o f [facility] 2022-05-14 2022-05-14 Routine [facility] 1.2.395.215 [id number] Univers 16:00:00 16:35:28 Nataliia C JBOSS ARCHITECT 350.1.13.[address] [facility] 4.2.7.2.686 Julio as MATERNAL [id number] Med ical & CHILD [address] [place] [address] 2022-05-14 2022-05-14 Orders Doctor SHABANA 1.2.840.114 [id number] Univers 00:00:00 00:00:00 Only Unassigned, JERICHO 350.1.13.10 ity of [place] [facility] 4.2.7.2.686 Julio as [id number] [facility] [address] 2022-04-30 2022-04-30 SHABANA Sandy 1.2.840.114 [id number] Univers 00:00:00 00:00:00 Triage Cecile JERICHO 350.1.13.10 it y of HOSPITAL 4.2.7.2.686 Julio as [id number] [facility] [address] 2022-04-30 2022-04-30 SHABANA Zuleta 1.2.840.114 [id number] Univers 00:00:00 00:00:00 Triage Aneatrice JERICHO 350.1.13.10 ity of [facility] 4.2.7.2.686 Julio as [id number] [address] 2022-04-29 2022-04-29 Telephone [facility] 1.2.840.114 [id number] Univers 00:00:00 00:00:00 Nataliia C JBOSS ARCHITECT 350.1.13.10 ity of REGIONAL 4.2.7.2.686 Julio as MATERNAL [id number] [facility] & CHILD [address] [place] [address] 2022-04-28 2022-04-28 SHABANA Sandy 1.2.840.114 [id number] Univers 00:00:00 00:00:00 Triage Cecile ECHAVARRIA 350.1.13.10 it y of HOSPITAL 4.2.7.2.686 Julio as [id number] [address] 2022-04-16 2022-04-16 Routine Akinpe, [facility] 1.2.494.669 [id number] Univers 15:30:00 15:45:00 Nataliia C JBOSS ARCHITECT 350.1.13.10 ity of Visit REGIONAL 4.2.7.2.686 Julio as MATERNAL [id number] [facility] & [address] 2022-04-16 2022-04-16 Out[facility] [id number] Univers 15:30:00 15:30:00 NATALIIA ity o f [facility] 2022-04-14 2022-04-14 Abstract [facility] 1.2.840.114 [id number] Univers 00:00:00 00:00:00 Nataliia King JBOSS ARCHITECT 350.1.13.10 ity of REGIONAL 4.2.7.2.686 Julio as MATERNAL [id number] [facility] & [address] 2022-04-09 2022-04-09 Juvenile Justice Specialist Ultrasound, [facility] 1.2 .840.114 [id number] Univers 11:30:00 12:00:00 Visit Janette Thomson JBOSS ARCHITECT 350.1.13.10 ity of REGIONAL 4.2.7.2.686 Julio as MATERNAL [id number] [facility] & CHILD [facility] 2022-04-09 2022-04-09 Outpatient P [facility] [id number] Univers 11:30:00 11:30:00 ity of [facility] 2022-04-09 2022-04-09 Outpatient P JANETTE THOMSON [facility] [id number] Univers 11:30:00 11:30:00 JANETTE THOMSON [facility] 2022-03-24 2022-03-24 Orders Doctor SHABANA 1.2.840.114 [id number] Univers 00:00:00 00:00:00 Only Unassigned, JERICHO 350.1.13.10 ity of [place] [facility] 4.2.7.2.686 Julio as [id number] [address] 2022-03-19 2022-03-19 Outpatient R AKINSIPE, [facility] [id number] Univers 15:00:00 15:52:14 NATALIIA lovey o f [facility] 2022-03-19 2022-03-19 Initial [facility] 1.2.426.186 [id number] Univers 15:00:00 15:52:14 Nataliia King JBOSS ARCHITECT 350.1.13.[address] [facility] 4.2.7.2.686 Julio as MATERNAL [id number] Med ical & CHILD [address] [place] [address] 2021-06-01 2021-06-01 Outpatient R ADUM, [facility] [id number] Univers 00:00:00 00:00:00 AUDREY hendrix [facility] 2021-04-22 2021-04-22 Office Ad, [facility] 1.2.840.114 [id number] Univers 13:59:17 15:04:16 Visit Audrey Moore 350.1.13.10 ity [facility] 4.2.7.2.686 [place] [id number] Pr dic[address] 2021-04-22 2021-04-22 Outpatient R ADUM, [facility] [id number] Univers 14:00:00 14:00:00 AUDREY sally [facility] Results Test Description Test Time Test Comments Results Result Comments Source RHO (D) IMMUNE GLOBULIN 2022-11-07 14:35:32 Test Item Value Reference Range Interpretation Comme nts RHIG CANDIDATE? (test code = No- see comment Patient is not a candidate for RhIg- 5055) Patient is Rh P ositive.Performed at [facility] Laboratory Services - GAL Blood [address] [place] [address]Yqbe Free: [phone] A No. [id number] [facility] [id number] 14:35:32 Test Item Value Reference Range Interpretation Comments RHIG CANDIDATE? No- see comment Patient i s not a (test code = candidate for R hIg- 5055) Patient is Rh Positive.Perfor med at [facility] Laboratory Services - [facility] Blood [address] [address]Tczl Free: [phone] A No. [id number] [facility] [id number] 07:34:36 Test Item Value Reference Range Interpretation Comments BASE EXCESS, CORD (test mEq/L code = 8530123132) AC PH, CORD (BEAKER) 7.18-7.38 (test code = 1068677656) PC02, CORD (test code = See_Comment [Au tomated message] 0372428207) The system [facility] [employer] generated this result transmitted ref erence range: 32 - 66 mmHg. The reference r jaleesa was not used to interpret this result as normal/abnor mal. PO2, CORD (test code = See_Comment L [Aut omated message] 9944181410) The system [employer] generated this result transmitted ref erence range: 10 - 30 mmHg. The reference r jaleesa was not used to interpret this result as normal/abnor mal. BICARBONATE, CORD (test See_Comment [Au tomated message] code = 6030638218) The syste m which generated this result transmitted ref erence range: 17 - 27 mEq/L. The reference r jaleesa was not used to interpret this result as normal/abnor mal. Lab Interpretation (test Abnormal code = 69004-5) [facility] [id number] 07:34:36 Test Item Value Reference Range Interpretation Comments BASE EXCESS, CORD (test mEq/L code = 9277738214) AC PH, CORD (BEAKER) 7.18-7.38 (test code = 4403380007) PC02, CORD (test code = See_Comment [Au tomated message] 7197590868) The system whic h generated this result transmitted ref erence range: 32 - 66 mmHg. The reference r jaleesa was not used to interpret this result as normal/abnor mal. PO2, CORD (test code = See_Comment L [Aut omated message] 3758525729) The system [facility] generated this result transmitted ref erence range: 10 - 30 mmHg. The reference r jaleesa was not used to interpret this result as normal/abnor mal. BICARBONATE, CORD (test See_Comment [Au tomated message] code = 5847609977) The syste m which generated this result transmitted ref erence range: 17 - 27 mEq/L. The reference r jaleesa was not used to interpret this result as normal/abnor mal. Lab Interpretation (test Abnormal code = 39361-1) [facility] CORD [id number] 07:27:55 Test Item Value Reference Range Interpretation Comments VENOUS BASE EXCESS, mEq/L CORD (test code = 8476248303) VENOUS PH, CORD (test 7.25-7.45 code = 5610830144) VENOUS PC02, CORD See_Comment [Automate d message] The (test code = system which ge nerated 4981197140) this result tra nsmitted reference range : 27 - 49 mmHg. The refer ence range was not used to interpret this result as normal/abnormal . VENOUS PO2, CORD (test See_Comment [Aut omated message] The code = 3407642894) system [facility] generated this result tra nsmitted reference range : 17 - 41 mmHg. The refer ence range was not used to interpret this result as normal/abnormal . VENOUS BICARBONATE, See_Comment [Automa steven message] The CORD (test code = system [facility] generated 0016564705) this result tra nsmitted reference range : 12 - 29 mEq/L. The refe rence range was not used to interpret this result as normal/abnormal . [facility] CORD [id number] 07:27:55 Test Item Value Reference Range Interpretation Comments VENOUS BASE EXCESS, mEq/L CORD (test code = [id number]) VENOUS PH, CORD (test 7.25-7.45 code = [id number]) VENOUS PC02, CORD See_Comment [Automate d message] The (test code = system which ge nerated [id number]) this result tra nsmitted reference range : 27 - 49 mmHg. The refer ence range was not used to interpret this result as normal/abnormal . VENOUS PO2, CORD (test See_Comment [Aut omated message] The code = [id number]) system [facility] generated this result tra nsmitted reference range : 17 - 41 mmHg. The refer ence range was not used to interpret this result as normal/abnormal . VENOUS BICARBONATE, See_Comment [Automa steven message] The CORD (test code = system whi ch generated [id number]) this result tra nsmitted reference range : 12 - 29 mEq/L. The refe rence range was not used to interpret this result as normal/abnormal . [facility] ONLY - SYPHILIS [id number] 16:01:05 Test Item Value Reference Range Interpretation Comments Syphilis IgG/IgM (test Non-reactive Non-reactive code = 78309-6) KELSI (test code = KELSI) Non-reactive - No serologic evidence of T. pallidum infection. Cannot exclude incubating or early syphilis. Submit a second specimen in 2-4 weeks if syphilis is clinically suspected. Equivocal - Further testing to follow. Reactive - Further testing to follow. Lab Interpretation (test Normal code = 88421-2) [facility] ONLY - SYPHILIS [id number] 16:01:05 Test Item Value Reference Range Interpretation Comments Syphilis IgG/IgM (test Non-reactive Non-reactive code = 46000-0) KELSI (test code = KELSI) Non-reactive - No serologic evidence of T. pallidum infection. Cannot exclude incubating or early syphilis. Submit a second specimen in 2-4 weeks if syphilis is clinically suspected. Equivocal - Further testing to follow. Reactive - Further testing to follow. Lab Interpretation (test Normal code = 02298-6) [facility] 1/2 AG-AB WITH [id number] 19:15:57 Test Item Value Reference Range Interpretation Comments HIV Negative Negative Semi-quantitative (test code = 39834-2) KELSI (test code = Non-reactive for HIV-1 KELSI) antigen and HIV-1/HIV-2 antibodies. ?No laboratory evidence of HIV infection. ?Repeat in 2-4 weeks if acute HIV infection is suspected. [facility] 1/2 AG-AB WITH [id number] 19:15:57 Test Item Value Reference Range Interpretation Comments HIV Negative Negative Semi-quantitative (test code = 86302-9) KELSI (test code = Non-reactive for HIV-1 KELSI) antigen and HIV-1/HIV-2 antibodies. ?No laboratory evidence of HIV infection. ?Repeat in 2-4 weeks if acute HIV infection is suspected. [facility] Surface [id number] 16:51:38 Test Item Value Reference Range Interpretation Comments HBsAg Semi-Quantitative (test code = Negative Negative 5195-3) [facility] Surface [id number] 16:51:38 Test Item Value Reference Range Interpretation Comments HBsAg Semi-Quantitative (test code = Negative Negative 5195-3) [facility] and Screen - ONCE [id number] 16:13:38 Test Item Value Reference Range Interpretation Comments ABO & RH (test code A POSITIVE Performe d at [facility] = 20) Laboratory [facility] [place] [address] s [id number] Free: [phone] A No. [id number] IAT (test code = Negative Performed a t [facility] 1185) Laboratory [facility] [place] [address] s [id number] Free: [phone] A No. [id number] [facility] and Screen - ONCE [id number] 16:13:38 Test Item Value Reference Range Interpretation Comments ABO & RH (test code A POSITIVE Performe d at [facility] = 20) Laboratory [facility] [address] [place] [address] s [id number] Free: [phone] A No. [id number] IAT (test code = Negative Performed a t [facility] 1185) Laboratory [facility] [place] [address] s [id number] Free: [phone] A No. [id number] [facility] [id number] 15:38:33 Test Item Value Reference Range Interpretation Comments WBC (test code = See_Comment [Automated 6690-2) message] The sy stem which generated this result transmitted reference range : 4.30 - 11.10 10*3/?L. The reference range was not used to interpret this result as normal/abnormal . RBC (test code = See_Comment [Automated 789-8) message] The sy stem which generated this result transmitted reference range : 3.93 - 5.25 10*6/?L. The reference range was not used to interpret this result as normal/abnormal . HGB (test code = 12.2 g/dL 11.6-15.0 718-7) HCT (test code = 36.2 % 35.7-45.2 4544-3) MCV (test code = 80.3 fL 80.6-95.5 L 787-2) MCH (test code = 27.1 pg 25.9-32.8 785-6) MCHC (test code = 33.7 g/dL 31.6-35.1 786-4) RDW-SD (test code = 45.7 fL 39.0-49.9 61205-7) RDW-CV (test code = 16.0 % 12.0-15.5 H 788-0) PLT (test code = See_Comment [Automated 777-3) message] The sy stem which generated this result transmitted reference range : 166 - 358 10*3/ ?L. The reference r jaleesa was not used to interpret this result as normal/abnormal . MPV (test code = 10.8 fL 9.5-12.9 21321-1) NRBC/100 WBC (test See_Comment [Automat ed code = 5429383738) message] The system which generated this result transmitted reference range : 0.0 - 10.0 /100 WBCs. The refer ence range was not u sed to interpret th is result as normal/abnormal . NRBC x10^3 (test code See_Comment [Auto mated = 1680530228) message] The s ystem which generated this result transmitted reference range : 10*3/?L. The reference range was not used to interpret this result as normal/abnormal . GRAN MAT (NEUT) % 74.6 % (test code = 770-8) IMM GRAN % (test code 0.60 % = 8703428214) LYMPH % (test code = 18.6 % 736-9) MONO % (test code = 5.5 % 5905-5) EOS % (test code = 0.5 % 713-8) BASO % (test code = 0.2 % 706-2) GRAN MAT x10^3(ANC) 7.23 10*3/uL 1.88-7.09 H (test code = 4345354587) IMM GRAN x10^3 (test 0.06 10*3/uL 0.00-0.06 code = 6042167887) LYMPH x10^3 (test code 1.80 10*3/uL 1.32-3.29 = 731-0) MONO x10^3 (test code 0.53 10*3/uL 0.33-0.92 = 742-7) EOS x10^3 (test code = 0.05 10*3/uL 0.03-0.39 711-2) BASO x10^3 (test code 0.01-0.07 = 704-7) Lab Interpretation Abnormal (test code = 09292-8) [facility] with [id number] 15:38:33 Test Item Value Reference Range Interpretation Comments WBC (test code = See_Comment [Automated 2090-2) message] The sy stem which generated this result transmitted reference range : 4.30 - 11.10 10*3/?L. The reference range was not used to interpret this result as normal/abnormal . RBC (test code = See_Comment [Automated 319-8) message] The sy stem which generated this result transmitted reference range : 3.93 - 5.25 10*6/?L. The reference range was not used to interpret this result as normal/abnormal . HGB (test code = 12.2 g/dL 11.6-15.0 718-7) HCT (test code = 36.2 % 35.7-45.2 4544-3) MCV (test code = 80.3 fL 80.6-95.5 L 787-2) MCH (test code = 27.1 pg 25.9-32.8 785-6) MCHC (test code = 33.7 g/dL 31.6-35.1 786-4) RDW-SD (test code = 45.7 fL 39.0-49.9 70101-1) RDW-CV (test code = 16.0 % 12.0-15.5 H 788-0) PLT (test code = See_Comment [Automated 777-3) message] The sy stem which generated this result transmitted reference range : 166 - 358 10*3/ ?L. The reference r jaleesa was not used to interpret this result as normal/abnormal . MPV (test code = 10.8 fL 9.5-12.9 49924-0) NRBC/100 WBC (test See_Comment [Automat ed code = 6939005291) message] The system which generated this result transmitted reference range : 0.0 - 10.0 /100 WBCs. The refer ence range was not u sed to interpret th is result as normal/abnormal . NRBC x10^3 (test code See_Comment [Auto mated = 3521871666) message] The s ystem which generated this result transmitted reference range : 10*3/?L. The reference range was not used to interpret this result as normal/abnormal . GRAN MAT (NEUT) % 74.6 % (test code = 770-8) IMM GRAN % (test code 0.60 % = 6560527093) LYMPH % (test code = 18.6 % 736-9) MONO % (test code = 5.5 % 5905-5) EOS % (test code = 0.5 % 713-8) BASO % (test code = 0.2 % 706-2) GRAN MAT x10^3(ANC) 7.23 10*3/uL 1.88-7.09 H (test code = 9878102804) IMM GRAN x10^3 (test 0.06 10*3/uL 0.00-0.06 code = 3895206296) LYMPH x10^3 (test code 1.80 10*3/uL 1.32-3.29 = 731-0) MONO x10^3 (test code 0.53 10*3/uL 0.33-0.92 = 742-7) EOS x10^3 (test code = 0.05 10*3/uL 0.03-0.39 711-2) BASO x10^3 (test code 0.01-0.07 = 704-7) Lab Interpretation Abnormal (test code = 34354-4) [facility] URINALYSIS W SPECIFIC [id number] 16:07:00 Test Item Value Reference Range Interpretation Comments POCT U SP GRAV (test code = . 1.005-1.025 3255) POCT PH U (test code = 3254) . 5-8 POCT U LEUK EST (test code = . Negative - Negative 3263) POCT U NIT (test code = 3262) . Negative - Negative POCT U PROT (test code = 3259) trace Negative - Negative POCT U GLU (test code = 3256) negative Negative - Negative POCT U KETONE (test code = 3258) . Negative - Negative POCT U UROBILI (test code = . 0.2-1 3260) POCT U BILI (test code = 3261) . Negative - Negative POCT U BLD (test code = 3257) . Negative - Negative POCT U COLOR (test code = 3266) . POCT U APPEAR (test code = 3267) . [facility] URINALYSIS W SPECIFIC [id number] 17:23:00 Test Item Value Reference Range Interpretation Comments POCT U SP GRAV (test code = 3255) . 1.005-1.025 POCT PH U (test code = 3254) . 5-8 POCT U LEUK EST (test code = 3263) . Negative - Negative POCT U NIT (test code = 3262) . Negative - Negative POCT U PROT (test code = 3259) Trace Negative - Negative POCT U GLU (test code = 3256) Neg Negative - Negative POCT U KETONE (test code = 3258) . Negative - Negative POCT U UROBILI (test code = 3260) . 0.2-1 POCT U BILI (test code = 3261) . Negative - Negative POCT U BLD (test code = 3257) . Negative - Negative POCT U COLOR (test code = 3266) . POCT U APPEAR (test code = 3267) .. [facility] URINALYSIS W SPECIFIC [id number] 17:04:00 Test Item Value Reference Range Interpretation Comments POCT U SP GRAV (test code = 3255) . 1.005-1.025 POCT PH U (test code = 3254) . 5-8 POCT U LEUK EST (test code = 3263) . Negative - Negative POCT U NIT (test code = 3262) . Negative - Negative POCT U PROT (test code = 3259) Trace Negative - Negative POCT U GLU (test code = 3256) Neg Negative - Negative POCT U KETONE (test code = 3258) . Negative - Negative POCT U UROBILI (test code = 3260) . 0.2-1 POCT U BILI (test code = 3261) . Negative - Negative POCT U BLD (test code = 3257) . Negative - Negative POCT U COLOR (test code = 3266) . POCT U APPEAR (test code = 3267) . [facility] URINALYSIS W SPECIFIC [id number] 17:04:00 Test Item Value Reference Range Interpretation Comments POCT U SP GRAV (test code = 3255) . 1.005-1.025 POCT PH U (test code = 3254) . 5-8 POCT U LEUK EST (test code = 3263) . Negative - Negative POCT U NIT (test code = 3262) . Negative - Negative POCT U PROT (test code = 3259) Trace Negative - Negative POCT U GLU (test code = 3256) Neg Negative - Negative POCT U KETONE (test code = 3258) . Negative - Negative POCT U UROBILI (test code = 3260) . 0.2-1 POCT U BILI (test code = 3261) . Negative - Negative POCT U BLD (test code = 3257) . Negative - Negative POCT U COLOR (test code = 3266) . POCT U APPEAR (test code = 3267) . [facility] URINALYSIS W SPECIFIC [id number] 21:10:00 Test Item Value Reference Range Interpretation Comments POCT U SP GRAV (test code = 3255) . 1.005-1.025 POCT PH U (test code = 3254) . 5-8 POCT U LEUK EST (test code = 3263) . Negative - Negative POCT U NIT (test code = 3262) . Negative - Negative POCT U PROT (test code = 3259) Trace Negative - Negative POCT U GLU (test code = 3256) Neg Negative - Negative POCT U KETONE (test code = 3258) . Negative - Negative POCT U UROBILI (test code = 3260) . 0.2-1 POCT U BILI (test code = 3261) . Negative - Negative POCT U BLD (test code = 3257) . Negative - Negative POCT U COLOR (test code = 3266) . POCT U APPEAR (test code = 3267) [facility] URINALYSIS W SPECIFIC [id number] 21:10:00 Test Item Value Reference Range Interpretation Comments POCT U SP GRAV (test code = 3255) . 1.005-1.025 POCT PH U (test code = 3254) . 5-8 POCT U LEUK EST (test code = 3263) . Negative - Negative POCT U NIT (test code = 3262) . Negative - Negative POCT U PROT (test code = 3259) Trace Negative - Negative POCT U GLU (test code = 3256) Neg Negative - Negative POCT U KETONE (test code = 3258) . Negative - Negative POCT U UROBILI (test code = 3260) . 0.2-1 POCT U BILI (test code = 3261) . Negative - Negative POCT U BLD (test code = 3257) . Negative - Negative POCT U COLOR (test code = 3266) . POCT U APPEAR (test code = 3267) [facility] URINALYSIS W SPECIFIC [id number] 21:13:00 Test Item Value Reference Range Interpretation Comments POCT U SP GRAV (test code = 3255) . 1.005-1.025 POCT PH U (test code = 3254) . 5-8 POCT U LEUK EST (test code = 3263) . Negative - Negative POCT U NIT (test code = 3262) . Negative - Negative POCT U PROT (test code = 3259) Trace Negative - Negative POCT U GLU (test code = 3256) Neg Negative - Negative POCT U KETONE (test code = 3258) . Negative - Negative POCT U UROBILI (test code = 3260) . 0.2-1 POCT U BILI (test code = 3261) . Negative - Negative POCT U BLD (test code = 3257) . Negative - Negative POCT U COLOR (test code = 3266) POCT U APPEAR (test code = 3267) [facility] [id number] 20:34:00 Test Item Value Reference Range Interpretation Comments POCT U SP GRAV (test code = . 1.005-1.025 3255) POCT PH U (test code = 3254) . 5-8 POCT U LEUK EST (test code = . Negative - Negative 3263) POCT U NIT (test code = 3262) . Negative - Negative POCT U PROT (test code = 3259) negative Negative - Negative POCT U GLU (test code = 3256) normal Negative - Negative POCT U KETONE (test code = 3258) . Negative - Negative POCT U UROBILI (test code = . 0.2-1 3260) POCT U BILI (test code = 3261) . Negative - Negative POCT U BLD (test code = 3257) . Negative - Negative POCT U COLOR (test code = 3266) yellow POCT U APPEAR (test code = 3267) clear [id number] 16:13:45 Test Item Value Reference Range Interpretation Comments Syphilis IgG/IgM (test Non-reactive Non-reactive code = 78419-7) KELSI (test code = KELSI) Non-reactive - No serologic evidence of T. pallidum infection. Cannot exclude incubating or early syphilis. Submit a second specimen in 2-4 weeks if syphilis is clinically suspected. Equivocal - Further testing to follow. Reactive - Further testing to follow. Lab Interpretation (test Normal code = 53466-5) [facility] [id number] 05:55:09 Test Item Value Reference Range Interpretation Comments HIV Negative Negative Semi-quantitative (test code = 77112-7) KELSI (test code = Non-reactive for HIV-1 KELSI) antigen and HIV-1/HIV-2 antibodies. ?No laboratory evidence of HIV infection. ?Repeat in 2-4 weeks if acute HIV infection is suspected. [facility]
[2022-11-09] MEDS ORDERED: HYDROCODONE/APAP 5/325 MG TAB ONE (19:49)
[2022-11-09] MEDS ORDERED: NA CHLORIDE 0.9% 500 ML ONE (20:00)
[2022-11-09 20:15] LABS: Absolute Lymphocytes (CBC) 0.8 K/uL (0.7-4.9); Hematocrit 24.3 % (36.0-45.0); MCV 81.1 fL (80-100); MPV 8.4 fL (7.6-11.3); RBC Red Blood Cell Count 2.99 M/uL (3.86-4.86)
[2022-11-09 20:35] LABS: Albumin 1.9 g/dL (3.4-5.0); Bilirubin Total 0.2 mg/dL (0.2-1.0); Protein, Total 5.7 g/dL (6.4-8.2)
[2022-11-09 20:37] LABS: Potassium 2.8 mmol/L (3.5-5.1)
[2022-11-09] MEDS ORDERED: POTASSIUM CL SA 10 MEQ TAB PO ONE (20:49)
[2022-11-09 21:09] LABS: Urine Blood 3+ (Negative); Urine Glucose Negative (Negative); Urine Protein Negative (Negative)
[2022-11-09] MEDS ORDERED: DIPHENHYDRAMINE 50 MG/ML VIAL ONE (21:12)
[2022-11-09] MEDS ORDERED: METOCLOPRAMIDE 10 MG/2mL INJ ONE (21:12)
[2022-11-09 21:19] LABS: Urine Bacteria <20 /HPF (<20); Urine Crystals Unidentified Few /HPF (None Seen); Urine Mucus Slight /HPF (None Seen)
--- NOTE | 2022-11-09 21:29 | EDPHYS ---
Physician Documentation [facility] Name: Neva Reyes Age: 22 yrs Sex: Female : 2000 Arrival Date: 11/09/2022 Time: 19:17 Bed 12 Private MD: ED Physician Karin Morataya HPI: 11/09 19:43 This 22 yrs old Female presents to ER via Ambulatory with complaints of Post sd2 Problem, 2 DAYS POST LTCS, Blurred Vision, Headache, Swelling of Lower Extremity. 19:43 This 22 yrs old Female presents to ER via Ambulatory with complaints of Post sd2 Problem, 2 DAYS POST LTCS, Blurred Vision, Headache, Swelling of Lower Extremity. 19:43 22 yo F presents with CC of headache. Reports ongoing since 3PM this afternoon and did sd2 not improve at home with Ibuprofen. She was also given Crosby but reports she wasn't sure if she was able to take that one in addition to her Ibuprofen. Pt is 2 days from a due to prolonged labor. No history of gestational HTN or pre-eclampsia. Reports bilateral frontal headache with sensitivity to light but not sound. Denies any blurred vision, nausea, vomiting or elevated blood pressure at home. BP normal upon arrival. No weakness, numbness or tingling. Reports ongoing swelling of bilateral lower extremities unchanged since prior to delivery. . [employer]: 19:27 1, Full Term 1, Living 1 jj7 Historical: - Allergies: 19:27 shrimp; jj7 - PMHx: 19:27 None; jj7 - PSHx: 19:27 section; jj7 - Social history:: Smoking status: Patient denies any tobacco usage or history of. Patient/guardian denies using alcohol, street drugs. ROS: 19:43 Constitutional: Negative for fever, chills, and weight loss, Eyes: Negative for injury, sd2 pain, redness, and discharge, Cardiovascular: Negative for chest pain, palpitations, and edema, Respiratory: Negative for shortness of breath, cough, wheezing. Abdomen/GI: Negative for abdominal pain, nausea, vomiting, diarrhea. MS/Extremity: Negative for injury and deformity, Skin: Negative for injury, rash, and discoloration, Neuro: Positive for headache, Negative for numbness and tingling. Exam: 19:43 Constitutional: This is a well developed, well nourished patient who is awake, alert, sd2 and in no acute distress. Head/Face: Normocephalic, atraumatic. Eyes: EOMI, normal conjunctiva bilaterally Chest/axilla: Normal chest wall appearance and motion. Nontender with no deformity. Cardiovascular: Regular rate and rhythm with a normal S1 and S2. No gallops, murmurs, or rubs. 2+ distal pulses. Respiratory: Lungs have equal breath sounds bilaterally, clear to auscultation and percussion. No rales, rhonchi or wheezes noted. No increased work of breathing, no retractions or nasal flaring. Abdomen/GI: Soft, non-tender, with normal bowel sounds. No guarding or rebound. No evidence of tenderness throughout. C/S incision c/d/i with no signs of infection Skin: Warm, dry with normal turgor. Normal color with no rashes, no lesions, and no evidence of cellulitis. MS/ Extremity: Pulses equal, no cyanosis. Neurovascular intact. Full, normal range of motion. Ambulatory without difficulty. Neuro: Awake and alert, GCS 15, oriented to person, place, time, and situation. Cranial nerves II-XII grossly intact. Motor strength 5/5 in all extremities. Sensory grossly intact. Cerebellar exam normal. Normal gait. Psych: Awake, alert, with orientation to person, place and time. Behavior, mood, and affect are within normal limits. Vital Signs: 19:23 BP 124 / 75; Pulse 104; Resp 20; Temp 98.9; Weight 106.59 kg; Height 5 ft. 3 in. jj7 (160.02 cm); Pain 8/10; 20:11 BP 122 / 66; Pulse 98; Resp 18; Pulse Ox 100% on R/A; Pain 5/10; tw5 21:25 BP 116 / 60; Pulse 96; Resp 18; Pulse Ox 100% on R/A; tw5 19:23 Body Mass Index 41.63 (106.59 kg, 160.02 cm) jj7 MDM: 19:35 Patient medically screened. sd2 19:43 Differential diagnosis: Differential diagnosis includes but is not limited to: Tension sd2 headache, migraine headache, intracranial hemorrhage, dehydration, electrolyte abnormality, musculoskeletal, meningitis among others. Data reviewed: vital signs, nurses notes. 21:26 Data reviewed: lab test result(s). Counseling: I had a detailed discussion with the sd2 patient and/or guardian regarding: the historical points, exam findings, and any diagnostic results supporting the discharge/admit diagnosis, lab results, the need for outpatient follow up, to return to the emergency department if symptoms worsen or persist or if there are any questions or concerns that arise at home. Medical screen evaluation completed. [facility] emergency medical condition absent. ED course: Labs reviewed. No signs of eclampsia. No proteinuria. BP within normal range throughout stay. Headache improved with treatment. Pt advised to increase hydration and potassium intake with hypokalemia. She is comfortable with plan for discharge and outpatient follow up with OBGYN and verbalizes understanding of strict return precautions. . 11/09 19:19 Order name: Urine Culture snw 11/09 19:19 Order name: Urine Microscopic Only; Complete Time: 21:23 snw 11/09 19:19 Order name: Urine For Protein, Random; Complete Time: 21:23 snw 11/09 19:47 Order name: CBC with Diff; Complete Time: 20:24 sd2 11/09 19:47 Order name: CMP; Complete Time: 20:38 sd2 11/09 21:09 Order name: Urine Dipstick-Ancillary; Complete Time: 21:23 EDMS 11/09 19:19 Order name: Urine Dipstick-Ancillary (obtain specimen); Complete Time: 21:09 snw Administered Medications: 19:50 Drug: HYDROcodone-acetaminophen 5 mg-325 mg 1 tabs Route: PO; tw5 20:12 Follow up: Response: No adverse reaction; RASS: Alert and Calm (0) tw5 20:12 Drug: NS 0.9% 500 ml Route: IV; Rate: bolus; Site: right antecubital; tw5 20:54 Follow up: Response: No adverse reaction; IV Status: Completed infusion; IV Intake: tw5 500ml 20:54 Drug: Potassium Chloride 40 mEq Route: PO; tw5 20:56 Follow up: Response: No adverse reaction tw5 21:18 Drug: Reglan (metoCLOPramide) 10 mg Route: IVP; Site: right antecubital; tw5 21:41 Follow up: Response: No adverse reaction tw5 21:18 Drug: Benadryl (diphenhydrAMINE) 25 mg Route: IVP; Site: right antecubital; tw5 21:41 Follow up: Response: No adverse reaction tw5 Disposition Summary: 11/09/22 21:28 Discharge Ordered Location: Home sd2 Problem: new sd2 Symptoms: have improved sd2 Condition: Stable sd2 Diagnosis - headache sd2 Followup: sd2 - With: Private Physician - When: 2 - 3 days - Reason: Recheck today's complaints, Continuance of care, Re-evaluation by your physician Discharge Instructions: - Discharge Summary Sheet sd2 - General Headache Without Cause sd2 - Care After Delivery sd2 Forms: - Medication Reconciliation Form sd2 - Thank You Letter sd2 - Antibiotic Education sd2 - Prescription Opioid Use sd2 Signatures: Dispatcher [employer] EDVirginia Ordoñez FNP-C [employer]-Sybil Alfaro tw5 Karin Morataya MD MD sd2 Aris Vaughan RN RN jj7
--- NOTE | 2022-11-09 21:29 | ER ---
Nurse's Notes [facility] Name: Neva Reyes Age: 22 yrs Sex: Female : 2000 Arrival Date: 11/09/2022 Time: 19:17 Bed 12 Private MD: Diagnosis: headache Presentation: 11/09 19:23 Chief complaint: Patient states: PP 2 DAYS VIA . NOW HAVING HEADACHE THAT jj7 STARTED TODAY. Coronavirus screen: At this time, the client does not indicate any symptoms associated with coronavirus-19. Ebola Screen: No symptoms or risks identified at this time. Initial Sepsis Screen: Does the patient meet any 2 criteria? HR > 90 bpm. No. Patient's initial sepsis screen is negative. Risk Assessment: Do you want to hurt yourself or someone else? Patient reports no desire to harm self or others. Onset of symptoms was November 09, 2022. 19:23 Method Of Arrival: Ambulatory [facility] 19:23 Acuity: HILDA 4 [facility] 21:44 Initial Sepsis Screen: Does the patient have a suspected source of infection? No. tw5 Patient's initial sepsis screen is negative. Triage Assessment: 19:27 Headache History: Denies prior headaches. General: Appears in no apparent distress. jj7 uncomfortable, Behavior is calm, cooperative, appropriate for age. Pain: Complains of pain in forehead, right eye and left eye Pain currently is 8 out of 10 on a pain scale. Pain began 4 hours ago. Also complains of. Neuro: No deficits noted. 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 Patient/guardian denies using alcohol, street drugs. Screenin:42 [facility] ED Fall Risk Assessment (Adult) History of falling in the last 3 months, tw5 including since admission No falls in past 3 months (0 pts). Humpty Dumpty Scale Fall Assessment Tool (age< 18yrs) Age 13 years and above (1 pt) Gender Female (1 pt). Abuse screen: Denies threats or abuse. Denies injuries from another. Nutritional screening: No deficits noted. Tuberculosis screening: No symptoms or risk factors identified. Fall Risk No fall in past 12 months (0 pts). Assessment: 19:42 General: Reports 'They gave me a bunch of medications but they didn't really tell me a tw5 lot. I think I took some of the ibuprofen but I didn't' take anything else because I wasn't sure if I could.". Pain: Complains of pain in forehead Pain currently is 10 out of 10 on a pain scale. 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 Full function Speech is normal, Facial symmetry appears normal, Pupils are PERRLA, Intact. Respiratory: Airway is patent Trachea midline Respiratory effort is even, unlabored. GI: incision looks intact. No redness or swelling noted. Derm: Skin is healthy with good turgor. 20:11 General: Reports 'The pain is less, it isn't throbbing behind my eyes like it was.". tw5 Vital Signs: 19:23 BP 124 / 75; Pulse 104; Resp 20; Temp 98.9; Weight 106.59 kg; Height 5 ft. 3 in. jj7 (160.02 cm); Pain 8/10; 20:11 BP 122 / 66; Pulse 98; Resp 18; Pulse Ox 100% on R/A; Pain 5/10; tw5 21:25 BP 116 / 60; Pulse 96; Resp 18; Pulse Ox 100% on R/A; tw5 19:23 Body Mass Index 41.63 (106.59 kg, 160.02 cm) j7 ED Course: 19:17 Patient arrived in ED. jj6 19:20 Karin Morataya MD is Attending Physician. sd2 19:27 Triage completed. jj7 19:27 Arm band placed on right wrist. jj7 19:42 Sybil Degroot is Primary Nurse. tw5 19:42 Patient has correct armband on for positive identification. Placed in gown. Bed in low tw5 position. Call light in reach. NIBP on. Door closed. Noise minimized. Warm blanket given. Pillow given. 20:11 Initial lab(s) drawn, by me, sent to lab. Inserted saline lock: 22 gauge in right tw5 antecubital area, using aseptic technique. Blood collected. 20:12 CMP Sent. tw5 20:12 CBC with Diff Sent. tw5 20:38 Notified ED physician of a critical lab result(s). potassium 2.8. kl 20:55 No provider procedures requiring assistance completed. tw5 21:09 Urine For Protein, Random Sent. tw5 21:09 Urine Culture Sent. tw5 21:09 Urine Microscopic Only Sent. tw5 21:44 IV discontinued, intact, bleeding controlled, No redness/swelling at site. Pressure tw5 dressing applied. Administered Medications: 19:50 Drug: HYDROcodone-acetaminophen 5 mg-325 mg 1 tabs Route: PO; tw5 20:12 Follow up: Response: No adverse reaction; RASS: Alert and Calm (0) tw 20:12 Drug: NS 0.9% 500 ml Route: IV; Rate: bolus; Site: right antecubital; tw5 20:54 Follow up: Response: No adverse reaction; IV Status: Completed infusion; IV Intake: tw5 500ml 20:54 Drug: Potassium Chloride 40 mEq Route: PO; tw5 20:56 Follow up: Response: No adverse reaction tw5 21:18 Drug: Reglan (metoCLOPramide) 10 mg Route: IVP; Site: right antecubital; tw5 21:41 Follow up: Response: No adverse reaction tw5 21:18 Drug: Benadryl (diphenhydrAMINE) 25 mg Route: IVP; Site: right antecubital; tw5 21:41 Follow up: Response: No adverse reaction tw5 Medication: 19:42 VIS not applicable for this client. tw5 Intake: 20:54 IV: 500ml; Total: 500ml. tw5 Outcome: 21:28 Discharge ordered by . sd2 21:42 Discharged to home ambulatory. tw5 21:42 Condition: stable 21:42 Discharge instructions given to patient, Instructed on discharge instructions, follow up and referral plans. Demonstrated understanding of instructions, follow-up care. 21:44 Patient left the ED. tw5 Signatures: Linda Lyon RN RN kl Wood, Tiffany tw5 Roxana Owen Stephanie, MD MD sd2 Aris Vaughan, RN RN jj7
[2022-11-09 22:01] VITALS: TEMP 98.9
[2022-11-09 22:13] VITALS: O2SAT 100
[2022-11-09 22:14] VITALS: BP 116/60
== END 2022-11-09 21:44 | disposition home or self-care (01) ==
LOC: ER 19:14
DX: O89.4 Spinal and epidural anesthesia-induced headache during the puerperium (principal); Z91.013 Allergy to seafood
CPT/HCPCS: 87088; 85025; 87086; 36415; 80053; 84156; J2765; J1200; J7040; 81003; 81015; 96361; 96374; 96375; 99283

== ENCOUNTER 2022-11-25 13:30 | Emergency (ER) | payer OTHER ==
--- OUTSIDE RECORDS SUMMARY | 2022-11-25 13:37 | XMS REPORT | Continuity of Care Document ---
:2000 Author Organization [facility] t Address [address] [place] [address] Care Team Providers Name Role Phone Nataliia Corey Primary Care Physician [phone] Nataliia Corey Attending Clinician [phone] Visit, [place] Nurse Attending Clinician Unavailable Katrin Finn Attending Clinician [phone] NATALIIA DODSON Attending Clinician Unavailable BIANKA WAHL Attending Clinician Unavailable Bianka Wahl MD Attending Clinician [phone] Steve Jimenez MD Attending Clinician JUNIOR SANCHEZ Attending Clinician Unavailable Delroy Steele Attending Clinician Junior Sanchez DO Attending Clinician ROCKY CONRAD Attending Clinician Unavailable Rocky Conrad MD Attending Clinician Jennifer Fajardo MD Attending Clinician Amber Conde MD Attending Clinician SHABANA SANCHEZ Attending Clinician Unavailable AUDREY HAYDEN Attending Clinician Unavailable Audrey Hayden MD Attending Clinician YOLY MEI Attending Clinician Unavailable ROSAMARIA SOSA Attending Clinician Unavailable Provider, Paulyp Temp Attending Clinician Unavailable Daisha REECE, Rosamaria Attending Clinician Doctor Unassigned, [place] Attending Clinician Unavailable Yoly Mei CNM Attending Clinician [facility] Unavailable Ultrasound, Keyannam Attending Clinician Unavailable Kathie Yap MD, Leola Attending Clinician [phone] LEOLA GRECO Attending Clinician Unavailable Leatha Michele MD Attending Clinician LEATHA MICHELE Attending Clinician Unavailable Paul CHRISTOPHER, Doug R Attending Clinician Sarah JAIN, Cecile Attending Clinician Unavailable Ely JAIN, Debra Attending Clinician Unavailable Janette Thomson MD Attending Clinician JANETTE THOMSON Attending Clinician Unavailable JANETTE THOMSON Attending Clinician Unavailable BIANKA WAHL Admitting Clinician Unavailable Vish DUKE, Bianka Hernandez Admitting Clinician [phone] ROCKY CONRAD Admitting Clinician Unavailable Rocky Conrad MD Admitting Clinician AUDREY HAYDEN Admitting Clinician Unavailable Audrey Hayden MD Admitting Clinician Payers Payer Name Policy Type Policy Number Effective Date Expiration Date Remi leigh [place] [employer] [id number] 2022 00:00:00 [place] [id number] 2022 00:00:00 Problems Condition Condition Condition Status Onset Resolution Last Treating Co mments Source Name Details Category Date Date Treatment Clinician Date Disease Active 2021-11 U nivers spinal spinal 2-22 ity of headache headache 00:00: [place] 00 Medical Branch Morbid Morbid Disease Active 2021-11 Univers obesity obesity 2-17 ity of with body with body 00:00: [facility] s mass index mass index 00 Me dical of of Branch 40.0-49.9 40.0-49.9 40 weeks 40 weeks Disease Active 2021-11 Unive rs gestation gestation 2-16 ity of of of 00:00: [place] 00 [facility] Excessive Excessive Disease Active 2021-11 Uni vers weight weight 2-03 ity of gain gain 00:00: [place] affecting affecting 00 [facility] Bran ch Refused Refused Disease Active 2021-11 Univers influenza influenza 2-03 ity of vaccine vaccine 00:00: [place] 00 Medical Branch Anemia Anemia Disease Active 2021-11 Univers during during 1-16 [place] in third in [place] 00 Medica l trimester trimester Bran ch Pain of Pain of Disease Active 2021-11 Univers round round 0-27 ity of ligament ligament 00:00: [place] during during 00 Medical Bran ch Adnexal Adnexal Disease Active Overview: Univ ers cyst cyst 06-18 Formattin ity of 00:00: g of this [place] 00 note Medical might be Branch different from the original. Noted on usg left side, follow up usg in 3/4 weeks scheduled Left Left Disease Active Overview: Univer s ovarian ovarian 06-18 Formattin ity o f cyst- cyst- 00:00: g of this [place] measuring measuring 00 note [facility] 5.89 x 5.89 x might be Branch 4.51 x 4.51 x different 5.55 cm 5.55 cm from the original. Noted on usg left side, follow up usg in 3/4 weeks scheduled Supervisio Supervisio Disease Active U nivers n of n of 4-29 ity of high-risk high-risk 00:[place] [facility] Nausea and Nausea and Disease Active U nivers vomiting vomiting 4-29 ity of during during 00:00: [place] 00 [facility] Obesity in Obesity in Disease Active U nivers 4-29 ity of 00:00: [place] [facility] Allergies, Adverse Reactions, Alerts Allergy Allergy Status Severity Reaction(s) Onset Inactive Treating Comm ents Source Name Type Date Date Clinician SHRIMP DRUG Active Swelling Univers INGREDI 4-29 ity of 00:00: [place] 00 Medical Branch Shrimp Propensi Active Swelling Univer s ty to 4-29 ity of adverse 00:00: [place] reaction 00 Medical s Branch Social History Social Habit Start Date Stop Date Quantity Comments Source ASSERTION 2022-02-12 University of 00:00:00 [facility] Exposure to 2022-11-06 2022-11-16 Not sure [facility] SARS-CoV-2 00:00:00 09:32:00 [facility] [place] [facility] (event) [place] Alcohol intake 2022-11-11 2022-11-11 Lifetime [facility] 00:00:00 00:00:00 non-drinker [facility] [place] [facility] (finding) [place] Tobacco use and 2022-06-07 2022-06-07 Smokeless tobacco Un iversity of exposure 00:00:00 00:00:00 non-user [facility] Sex Assigned At [birth year] Universit y of 00:00:00 00:00:00 [facility] Smoking Status Start Date Stop Date Source Never smoked tobacco [facility] [place] [facility] Medications Ordered Filled Start Stop Current Ordering Indication Dosage Frequency Signature Comments Components Source Medication Medication Date Date Medication? Clinician (SIG) [facility] 2021-11- No 1{tbl} 1 tablet, Univers acetaminoph -11-11 Oral, ONCE i ty of en-caff 21:00: 20:11 NOW, 1 [place] (ESGIC) 00 :00 dose, On Medical 50-325-40 Jeanie Branch mg tablet 1 11/11/22 tablet at 1500, Routine butalbital- 2021-11- No 1{tbl} 1 tablet, Univers acetaminoph -11-10 Oral, ity of en-caff 00:15: 23:37 ONCE, 1 [place] (ESGIC) 00 :00 dose, On Medical 50-325-40 Wed Branch mg tablet 1 11/10/22 tablet at 1815, Routine cefTRIAXone 2021-11 Yes 1000mg 1,000 mg, Univers (ROCEPHIN) - Intramuscu ity of injection 00:00: lar, Q24H [place] 1,000 mg 00 ABX, First Medic al dose Branch (after last modificati on) on Tue11/10/22 at 1800, Until Discontinu ed, [place]
Re ason for Anti-Infec tive: Empiric Therapy for Suspected Infection< br>Empiric Therapy Site: Urine
D [facility] Yes 1{tbl} Take 1 Univers acetaminoph 2-22 tablet by ity of en-caff 00:00: mouth [place] (ESGIC) 00 every 6 Medical 50-325-40 (six) Branch mg tablet hours. butalbital- 2021-11 Yes 1{tbl} Take 1 Univers acetaminoph 2-22 tablet by ity of en-caff 00:00: mouth [place] (ESGIC) 00 every 6 Medical 50-325-40 (six) Branch mg tablet hours. butalbital- 2021-11 Yes 1{tbl} Take 1 Univers acetaminoph 2-22 tablet by ity of en-caff 00:00: mouth [place] (ESGIC) 00 every 6 Medical 50-325-40 (six) Branch mg tablet hours. butalbital- 2021-11 Yes 1{tbl} Take 1 Univers acetaminoph 2-22 tablet by ity of en-caff 00:00: mouth [place] (ESGIC) 00 every 6 Medical 50-325-40 (six) Branch mg tablet hours. metoclopram 2021-11 Yes 10mg 10 mg, Univ ers max HCl 2-21 Oral, AC, ity of (REGLAN) 22:30: First dose [place] tablet 10 00 on Tue Medical mg 11/10/22 Branch at 1630, Until Discontinu ed, Routine diphenhydrA 2021-11- No 50mg 50 mg, Uni vers MINE 2- 12- Oral, ity of (BENADRYL) 22:30: 22:26 ONCE, 1 [place] tablet 50 00 :00 dose, On Medica l mg [facility] Branch 11/10/22 at 1630, [place] cephALEXin 2021-11- Yes [id number] 500mg Take 1 Univers (KEFLEX) 2-21 - capsule by ity of 500 mg 00:00: 05:59 mouth in [place] capsule 00 :00 the Medical morning Branch and 1 capsule at noon and 1 capsule in the evening. Do all this for 7 days. cephALEXin 2021-11- Yes [id number] 500mg Take 1 Univers (KEFLEX) 2-21 - capsule by ity of 500 mg 00:00: 05:59 mouth in [place] capsule 00 :00 the Medical morning Branch and 1 capsule at noon and 1 capsule in the evening. Do all this for 7 days. cephALEXin 2021-11- Yes [id number] 500mg Take 1 Univers (KEFLEX) 2-21 -29 capsule by ity of 500 mg 00:00: 05:59 mouth in [place] capsule 00 :00 the Medical morning Branch and 1 capsule at noon and 1 capsule in the evening. Do all this for 7 days. cephALEXin 2021-11- Yes [id number] 500mg Take 1 Univers (KEFLEX) 2-21 - capsule by ity of 500 mg 00:00: 05:59 mouth in [place] capsule 00 :00 the Medical morning Branch and 1 capsule at noon and 1 capsule in the evening. Do all this for 7 days. 2021-11 Yes [id number] 1{tbl} Take 1 Univers vitamin 2-19 tablet by ity of w/FA tablet 00:00: mouth in [place] 00 the Medical morning. Branch docusate 2021-11 Yes [id number] 200mg Take 2 U nivers 100 mg 2-19 capsules ity of capsule 00:00: by mouth [place] 00 once daily Medical as needed Branch for Constipati on. ferrous 2021-11 Yes [id number] 325mg Take 1 Un loli sulfate 325 2-19 tablet by ity of mg (65 mg 00:00: mouth [place] iron[place] 00 the Medical tablet morning Branch and 1 tablet in the evening. ibuprofen 2021-11 Yes [id number] 600mg Take 1 Univers 600 mg 2-19 tablet by ity of tablet 00:00: mouth [place] 00 every 6 Medical (six) Branch hours as needed (Pain). Take with food or milk. 2021-11 Yes [id number] 1{tbl} Take 1 Univers vitamin 2-19 tablet by ity of w/FA tablet 00:00: mouth in [place] 00 the Medical morning. Branch docusate 2021-11 Yes [id number] 200mg Take 2 U nivers 100 mg 2-19 capsules ity of capsule 00:00: by mouth [place] 00 once daily Medical as needed Branch for Constipati on. ferrous 2021-11 Yes [id number] 325mg Take 1 Un loli sulfate 325 2-19 tablet by ity of mg (65 mg 00:00: mouth [place] iron) 00 the Medical tablet morning Branch and 1 tablet in the evening. ibuprofen 2021-11 Yes [id number] 600mg Take 1 Univers 600 mg 2-19 tablet by ity of tablet 00:00: mouth [place] 00 every 6 Medical (six) Branch hours as needed (Pain). Take with food or milk. 2021-11 Yes [id number] 1{tbl} Take 1 Univers vitamin 2-19 tablet by ity of w/FA tablet 00:00: mouth in [place] 00 the Medical morning. Branch docusate 2021-11 Yes [id number] 200mg Take 2 U nivers 100 mg 2-19 capsules ity of capsule 00:00: by mouth [place] 00 once daily Medical as needed Branch for Constipati on. ferrous 2021-11 Yes [id number] 325mg Take 1 Un loli sulfate 325 2-19 tablet by ity of mg (65 mg 00:00: mouth [place] iron) 00 the Medical tablet morning Branch and 1 tablet in the evening. ibuprofen 2021-11 Yes [id number] 600mg Take 1 Univers 600 mg 2-19 tablet by ity of tablet 00:00: mouth [place] 00 every 6 Medical (six) Branch hours as needed (Pain). Take with food or milk. 2021-11 Yes [id number] 1{tbl} Take 1 Univers vitamin 2-19 tablet by ity of w/FA tablet 00:00: mouth in [place] 00 the Medical morning. Branch docusate 2021-11 Yes [id number] 200mg Take 2 U nivers 100 mg 2-19 capsules ity of capsule 00:00: by mouth [place] 00 once daily Medical as needed Branch for Constipati on. ferrous 2021-11 Yes [id number] 325mg Take 1 Un loli sulfate 325 2-19 tablet by ity of mg (65 mg 00:00: mouth [place] iron[place] 00 the Medical tablet morning Branch and 1 tablet in the evening. ibuprofen 2021-11 Yes [id number] 600mg Take 1 Univers 600 mg 2-19 tablet by ity of tablet 00:00: mouth [place] 00 every 6 Medical (six) Branch hours as needed (Pain). Take with food or milk. 2021-11 Yes [id number] 1{tbl} Take 1 Univers vitamin 2-19 tablet by ity of w/FA tablet 00:00: mouth in [place] 00 the Medical morning. Branch docusate 2021-11 Yes [id number] 200mg Take 2 U nivers 100 mg 2-19 capsules ity of capsule 00:00: by mouth [place] 00 once daily Medical as needed Branch for Constipati on. ferrous 2021-11 Yes [id number] 325mg Take 1 Un loli sulfate 325 2-19 tablet by ity of mg (65 mg 00:00: mouth [place] iron[place] 00 the Medical tablet morning Branch and 1 tablet in the evening. ibuprofen 2021-11 Yes [id number] 600mg Take 1 Univers 600 mg 2-19 tablet by ity of tablet 00:00: mouth [place] 00 every 6 Medical (six) Branch hours as needed (Pain). Take with food or milk. 2021-11 Yes [id number] 1{tbl} Take 1 Univers vitamin 2-19 tablet by ity of w/FA tablet 00:00: mouth in [place] 00 the Medical morning. Branch docusate 2021-11 Yes [id number] 200mg Take 2 U nivers 100 mg 2-19 capsules ity of capsule 00:00: by mouth [place] 00 once daily Medical as needed Branch for Constipati on. ferrous 2021-11 Yes [id number] 325mg Take 1 Un loli sulfate 325 2-19 tablet by ity of mg (65 mg 00:00: mouth [place] iron[place] 00 the Medical tablet morning Branch and 1 tablet in the evening. ibuprofen 2021-11 Yes [id number] 600mg Take 1 Univers 600 mg 2-19 tablet by ity of tablet 00:00: mouth [place] 00 every 6 Medical (six) Branch hours as needed (Pain). Take with food or milk. 2021-11 Yes [id number] 1{tbl} Take 1 Univers vitamin 2-19 tablet by ity of w/FA tablet 00:00: mouth in [place] 00 the Medical morning. Branch docusate 2021-11 Yes [id number] 200mg Take 2 U nivers 100 mg 2-19 capsules ity of capsule 00:00: by mouth [place] 00 once daily Medical as needed Branch for Constipati on. ferrous 2021-11 Yes [id number] 325mg Take 1 Un loli sulfate 325 2-19 tablet by ity of mg (65 mg 00:00: mouth [place] iron[place] 00 the Medical tablet morning Branch and 1 tablet in the evening. ibuprofen 2021-11 Yes [id number] 600mg Take 1 Univers 600 mg 2-19 [...] in 24 hours. Indication s: acute pain HYDROcodone 2021-11- Yes [id number] 1{tbl} Take 1 U nivers -acetaminop 2-19 12-27 tablet by it y of hen 5-325 00:00: 05:59 mouth [place] mg tablet 00 :00 every 6 Medical (six) Branch hours as needed (Pain scale above 4) for up to 7 days. Do not exceed 3 grams of acetaminop hen in 24 hours. Indication s: acute pain HYDROcodone 2021-11- Yes [id number] 1{tbl} Take 1 U nivers -acetaminop 2-19 12-27 tablet by it y of hen 5-325 00:00: 05:59 mouth [place] mg tablet 00 :00 every 6 Medical (six) Branch hours as needed (Pain scale above 4) for up to 7 days. Do not exceed 3 grams of acetaminop hen in 24 hours. Indication s: acute pain HYDROcodone 2021-11- Yes [id number] 1{tbl} Take 1 [...] 0446, Until Discontinu ed, Routine, Itching diphenhydrA 2022-1 Yes 25mg 25 mg, Univ ers MINE 2-18 Oral, ity of (BENADRYL) 10:46: Q6HPRN, [place] tablet 25 11 Starting Medica l mg on [place] Branch 11/07/22 at 0446, Until Discontinu ed, Routine, Sleep, Itching ondansetron 2021-11 Yes 4mg 4 mg, Slow Univers (ZOFRAN 2-18 IV Push, ity of (PF)) 10:46: Q8HPRN, [place] injection 4 11 Starting Medi natalie mg on [facility] 11/07/22 at 0446, Until Discontinu ed, Routine, Nausea and Vomiting (N/V) bisacodyL 2021-11 Yes 10mg 10 mg, Univer s (DULCOLAX) 2-18 Rectal, ity of suppository 10:46: QDAILYPRN, [place] 10 mg 11 Starting Medical on [place] Branch 11/07/22 at 0446, Until Discontinu ed, Routine, Constipati on simethicone 2021-11 Yes 160mg 160 mg, Un loli (GAS RELIEF 2-18 Oral, ity of (SIMETHICON 10:46: PC+HSPRN, [place] E)) 11 Starting Medical chewable on [facility] tablet 160 11/07/22 mg at 0446, Until Discontinu ed, Routine, Gas docusate 2021-11 Yes 200mg 200 mg, Unive rs (COLACE) 2-18 Oral, ity of capsule 200 10:46: QDAILYPRN, [place] mg 11 Starting Medical on [facility] 11/07/22 at 0446, Until Discontinu ed, Routine, Constipati on magnesium 2021-11 Yes 30mL 30 mL, Univer s hydroxide 2-18 Oral, ity of (MILK OF 10:46: QDAILYPRN, [place] MAGNESIA) 11 Starting Medica l 400 mg/5 mL on [facility] suspension 11/07/22 30 mL at 0446, Until Discontinu ed, Routine, Constipati on lactated 2021-11 Yes 1000mL at 125 Unive rs ringers IV 2-18 mL/hr, ity of infusion 10:46: 1,000 mL, [place] 1,000 mL 11 IV Medical Infusion, Branch PRN, 1 dose, Starting on [place] 11/07/22 at 0446, Until Discontinu ed, Routine HYDROcodone 2021-11 Yes 1{tbl} 1 tablet, Univers -acetaminop 2-18 Oral, ity of hen (NORCO 10:46: Q6HPRN, [place] 5) 5-325 mg 11 Starting Medi natalie tablet 1 on [place] Branch tablet 11/07/22 at 0446, Until Discontinu [...] IV Push, ity of (PF)) 10:46: Q8HPRN, [place] injection 4 11 Starting Medi natalie mg [...] [place] E)) 11 Starting Medical chewable on [facility] tablet 160 11/07/22 mg at 0446, Until [...] Starting Medica l 400 mg/5 mL on [place] Branch suspension 11/07/22 30 mL at 0446, Until Discontinu ed, Routine, Constipati on lactated 2021-11 Yes 1000mL at 125 Unive rs ringers IV 2-18 mL/hr, ity of infusion 10:46: 1,000 mL, [place] 1,000 mL 11 IV Medical Infusion, Branch PRN, 1 dose, Starting on 11/07/22 at 0446, Until Discontinu ed, Routine nalbuphine 2021-11 Yes 5mg 5 mg, Univer s (NUBAIN) 2-18 Intravenou ity o f injection 5 08:32: s, PRN, 1 [place] mg 34 dose, Medical Starting Branch on 11/07/22 at 0232, Until Discontinu ed, Routine, itching, PACU nalbuphine 2021-11 Yes 5mg 5 mg, Univer s (NUBAIN) 2-18 Intravenou ity o f injection 5 08:32: s, PRN, 1 [place] mg 34 dose, Medical Starting Branch on 11/07/22 at 0232, Until Discontinu ed, Routine, itching, PACU naloxone 2021-11- Yes .4mg 0.4 mg, Unive rs (NARCAN) 01-08- Slow IV ity of injection 08:32: 08:31 Push, PRN [place] 0.4 mg 34 :34 - SEE Medical INSTRUCTIO Branch NS, Starting on Tue11/07/22 at 0232, Until Tue11/09/22 at 0231, Routine, Analgesia Recovery, PACU naloxone 2021-11- Yes .4mg 0.4 mg, Unive rs (NARCAN) 01-08 Slow IV ity of injection 08:32: 08:31 Push, PRN [place] 0.4 mg 34 :34 - SEE Medical INSTRUCTIO Branch NS, Starting on Tue11/07/22 at 0232, Until Tue11/09/22 at 0231, Routine, Analgesia Recovery, PACU ketorolac 2021-11- No 30mg 30 mg, Unive rs (TORADOL) 01-08 Slow IV ity of injection 08:32: 08:47 Push, PRN, [place] 30 mg 34 :00 1 dose, Medical Starting Branch on Tue11/07/22 at 0232, Until Tue11/09/22 at 2359, Routine, Pain (scale 7-10), PACU methylergon 2021-11 Yes Intramuscu Univers ovine 2-18 lar, ONCE ity of (METHERGINE 07:22: INTRA [place] ) injection 00 PROCEDURE, [place] d[place] Starting Branch on [place] 11/07/22 at 0122, Until Discontinu ed, Routine, Intra-op diphenhydrA 2021-11 Yes Slow IV Uni vers MINE 2-18 Push, ONCE ity of (BENADRYL) 07:20: INTRA [place] injection 00 PROCEDURE, [facility] Starting Branch on [place] 11/07/22 at 0120, Until Discontinu ed, Routine, Intra-op ondansetron 2021-11 Yes Slow IV Uni vers (ZOFRAN 2-18 Push, ONCE ity of (PF)) 07:20: INTRA [place] injection 00 PROCEDURE, [facility] Starting Branch on [place] 11/07/22 at 0120, Until Discontinu ed, Routine, Intra-op oxytocin 2021-11 Yes IV Univers (PITOCIN) 2-18 Infusion, ity o f 30 units in 07:13: CONTINUOUS [place] NS 500 mL 00 PRN, Medical IV infusion Starting [facility] ch on [place] 11/07/22 at 0113, Until Discontinu ed, Routine, Intra-op lactated 2021-11 Yes IV Univers ringers IV 2-18 Infusion, ity of infusion 06:52: CONTINUOUS [place] 00 PRN, Medical Starting Branch on [place] 11/07/22 at 0052, Until Discontinu ed, Routine, Intra-op lactated 2021-11 No 1000mL at 125 [facility] ers ringers IV 01-08 12-19 mL/hr, ity of infusion 06:45: 15:44 1,000 mL, [place] 1,000 mL 00 :00 IV Medical Infusion, Branch CONTINUOUS , Starting on 11/07/22 at 0045, Until 11/08/22 at 0944, [place] lidocaine-e 2021-11 Yes Intravenou Univers pinephrine 2-18 s, ONCE ity of (XYLOCAINE 06:42: INTRA [place] W/EPINEPHRI 00 PROCEDURE, Me dical NE) 2 Starting Branch %-1:200,000 on Sun injection 11/07/22 at 0042, Until Discontinu ed, Routine, Intra-op HYDROcodone 2021-11- No 1{tbl} 1 tablet, Univers -acetaminop 2- 12-18 Oral, ity of hen (NORCO) 06:34: 09:55 Q6HPRN, 1 [place] 10-325 mg 40 :00 dose, Medical tablet 1 Starting Branch tablet on 11/07/22 at 0034, Until Discontinu ed, Routine, Pain (scale 7-10) HYDROcodone 2021-11- No 1{tbl} 1 tablet, Univers -acetaminop 2-18 -18 Oral, ity of hen (NORCO 06:34: 18:52 Q6HPRN, 1 [place] 5) 5-325 mg 39 :00 dose, Medical tablet 1 Starting Branch tablet on 11/07/22 at 0034, Until Discontinu ed, Routine, Pain (scale 4-6) ibuprofen 2021-11 Yes 600mg 600 mg, [facility] ers (IBU) 2-18 Oral, ity of tablet 600 06:34: Q6HPRN, [place] mg 38 Starting Medical on [place] Branch 11/07/22 at 0034, Until Discontinu ed, Routine, Pain (scale 1-3) ibuprofen 2021-11 Yes 600mg 600 mg, [facility] ers (IBU) 2-18 Oral, ity of tablet 600 06:34: Q6HPRN, [place] mg 38 Starting Medical on [place] Branch 11/07/22 at 0034, Until Discontinu ed, Routine, [...] 2-18 IV ity of 30 units in :34: Infusion, [place] NS 500 mL 25 PRN, For Medica l IV infusion post Branch delivery uterine atony., Starting on 11/07/[address] at 600 mL/hr for 1 hr then 150 mL/hr for 1 hr.
oxytocin 2021-11 Yes 300mL/h 300 mL/hr, Univers (PITOCIN) 2-18 IV ity of 30 units in :34: Infusion, [place] NS 500 mL 25 [...] Branch (NS) 250 mL Starting VIAL-MATE on Sun IV 11/07/22 piggyback at 0002, Until 11/08/22 at 0001, Administer over 60 Minutes, 250 mL
Reas on for Anti-Infec tive: Surgical Prophylaxi s
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
Duration of therapy: within 24 hours of [...] Surgical Prophylaxi s
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
Duration of therapy: within 24 hours of surgery diphenhydrA 2021-11- No 25mg 25 mg, Uni vers MINE 01-08 Intravenou ity of (BENADRYL) 05:15: 04:26 s, ONCE, 1 [place] injection 00 :00 dose, On Medica l 25 mg [facility] Branch 11/06/22 at 2315, Routine tobramycin 2021-11- No 5mg/kg 380 mg Un loli (NEBCIN) [...] br>Duratio n of Therapy: 7 days ampicillin 2021-11- No 2g 2,000 mg Un loli (POLYCILLIN [...] Pelvic
Duration of Therapy: 7 days acetaminoph 2021-11- No 1000mg 1,000 mg, Univers en 01-08 [...] it y of 0.2 % 05:35: PRN, [place] (NAROPIN 00 Starting Medical (PF)) on Tue Branch epidural 11/05/22 infusion at 2335, Until Discontinu ed, Routine, Intra-op lidocaine-e 2021-11 Yes Intravenou Univers pinephrine 2-17 s, ONCE ity of (XYLOCAINE 05:30: INTRA [place] W/EPINEPHRI 00 PROCEDURE, Me dical NE) 2 Starting Branch %-1:200,000 on Fri injection 11/05/22 at 2330, Until Discontinu ed, [...] 500mL at 999 Unive rs ringers IV 2-17 12-17 mL/hr, 500 it y of infusion 04:45: 04:47 mL, IV [place] 500 mL 00 :06 Infusion, Medical ONCE, 1 Branch dose, On Tue11/05/22 at 2245, Routine sodium 2021-11 Yes 30mL 30 mL, Univers citrate-cit 2-17 Oral, ity of cricket acid 03:58: PRE-PROCED [place] (BICITRA) 39 URE ONCE, Medic al 500-334 1 dose, Branch mg/5 mL Starting solution 30 on Tue11/05/22 at 2158, Until Discontinu ed, Routine, Surgery/Pr [...] Branch mg/5 mL Starting solution 30 on Tue11/05/22 at 2158, Until Discontinu ed, Routine, Surgery/Pr ocedure lactated 2021-11 Yes 500mL at 999 Univer s ringers IV 2-17 mL/hr, 500 ity of infusion 03:58: mL, IV [place] 500 mL 39 Infusion, Medical PRN - SEE Branch INSTRUCTIO NS, 1 dose, Starting on Tue11/05/22 at 2158, Until Discontinu ed, Routine proMETHazin 2021-11 No 12.5mg 12.5 mg, Univers e 01-07 [...] 1 [place] mg 00 :00 dose, On [facility] 11/05/22 at 1815, Routine butorphanol 2021-11- No 1mg 1 mg, Univ ers (STADOL) 01-06 Intravenou ity of injection 1 17:45: 16:46 s, ONCE, 1 [place] mg 00 :00 dose, On [facility] 11/05/22 at 1145, Routine lidocaine 2021-11 Yes [...] at 0854, Until Discontinu ed, Routine sodium 2021-11 No 30mL 30 mL, Univers citrate-cit 2-05 11-17 Oral, ity of cricket acid 14:54: 04:15 PRE-PROCED [place] (BICITRA) 23 :00 URE ONCE, Medic al 500-334 1 dose, Branch mg/5 mL Starting solution 30 on Tue11/05/22 at 0854, Until Discontinu ed, Routine, Surgery/Pr ocedure tolnaftate 2021-11 Yes [id number] Apply to Univers (TINACTIN) 1-11 area(s) 2 ity of 1 % cream 00:00: (two) [place] 00 times Medical daily. Branch Until rash clears plus 2 more weeks tolnaftate 2021-11 Yes [id number] Apply to Univers (TINACTIN) 1-11 area(s) 2 ity of 1 % cream 00:00: (two) [place] 00 times Medical daily. Branch Until rash clears plus 2 more weeks tolnaftate 2021-11 Yes [id number] Apply to Univers (TINACTIN) 1-11 area(s) 2 ity of 1 % cream 00:00: (two) [place] 00 times Medical daily. Branch Until rash clears plus 2 more weeks tolnaftate 2021-11 Yes [id number] Apply to Univers (TINACTIN) 1-11 area(s) 2 ity of 1 % cream 00:00: (two) [place] 00 times Medical daily. Branch Until rash clears plus 2 more weeks tolnaftate 2021-11 Yes [id number] Apply to [facility] (TINACTIN) 1-11 area(s) 2 ity of 1 % cream 00:00: (two) [place] 00 times Medical daily. Branch Until rash clears plus 2 more weeks tolnaftate 2021-11 Yes [id number] Apply to [facility] (TINACTIN) 1-11 area(s) 2 ity of 1 % cream 00:00: (two) [place] 00 times Medical daily. Branch Until rash clears plus 2 more weeks tolnaftate 2021-11 Yes [id number] Apply to [facility] (TINACTIN) 1-11 area(s) 2 ity of 1 % cream 00:00: (two) [place] 00 times Medical daily. Branch Until rash clears plus 2 more weeks tolnaftate 2021-11 Yes [id number] Apply to [facility] (TINACTIN) 1-11 area(s) 2 ity of 1 % cream 00:00: (two) [place] 00 times Medical daily. Branch Until rash clears plus 2 more weeks tolnaftate 2021-11 Yes [id number] Apply to [facility] (TINACTIN) 1-11 area(s) 2 ity of 1 % cream 00:00: (two) [place] 00 times Medical daily. Branch Until rash clears plus 2 more weeks tolnaftate 2021-11 Yes [id number] Apply to [facility] (TINACTIN) 1-11 area(s) 2 ity of 1 % cream 00:00: (two) [place] 00 times Medical daily. Branch Until rash clears plus 2 more weeks tolnaftate 2021-11 Yes [id number] Apply to [facility] (TINACTIN) 1-11 area(s) 2 ity of 1 % cream 00:00: (two) [place] 00 times Medical daily. Branch Until rash clears plus 2 more weeks tolnaftate 2021-11 Yes [id number] Apply to [facility] (TINACTIN) 1-11 area(s) 2 ity of 1 % cream 00:00: (two) [place] 00 times Medical daily. Branch Until rash clears plus 2 more weeks tolnaftate 2021-11 Yes [id number] Apply to [facility] (TINACTIN) 1-11 area(s) 2 ity of 1 % cream 00:00: (two) [place] 00 times Medical daily. Branch Until rash clears plus 2 more weeks tolnaftate 2021-11 Yes [id number] Apply to [facility] (TINACTIN) 1-11 area(s) 2 ity of 1 % cream 00:00: (two) [place] 00 times Medical daily. Branch Until rash clears plus 2 more weeks tolnaftate 2021-11 Yes [id number] Apply to [facility] (TINACTIN) 1-11 area(s) 2 ity of 1 % cream 00:00: (two) [place] 00 times Medical daily. Branch Until rash clears plus 2 more weeks tolnaftate 2021-11 Yes [id number] Apply to [facility] (TINACTIN) 1-11 area(s) 2 ity of 1 % cream 00:00: (two) [place] 00 times Medical daily. Branch Until rash clears plus 2 more weeks tolnaftate 2021-11 Yes [id number] Apply to [facility] (TINACTIN) 1-11 area(s) 2 ity of 1 % cream 00:00: (two) [place] 00 times Medical daily. Branch Until rash clears plus 2 more weeks tolnaftate 2021-11 Yes [id number] Apply to [facility] (TINACTIN) 1-11 area(s) 2 ity of 1 % cream 00:00: (two) [place] 00 times Medical daily. Branch Until rash clears plus 2 more weeks ascorbic Yes [id number] 500mg Take 1 [facility] acid, 9-16 tablet by ity of vitamin C, 00:00: mouth [place] 500 mg 00 the Medical tablet morning Branch and 1 tablet at noon and 1 tablet in the evening. ferrous 2021-0 Yes [id number] 325mg Take 1 [facility] loli sulfate 325 9-16 tablet by [facility] of mg (65 mg 00:00: [place] 00 the [facility] tablet morning Branch and 1 tablet in the evening. ascorbic 2021-0 Yes [id number] 500mg Take 1 [facility] nivers acid, 9-16 tablet by ity of vitamin C, 00:00: mouth [place] 500 mg 00 the Medical tablet morning Branch and 1 tablet at noon and 1 tablet in the evening. ferrous 0 Yes [id number] 325mg Take 1 [facility] loli sulfate 325 9-16 tablet by [facility] of mg (65 mg 00:00: mouth [place] 00 the [facility] tablet morning Branch and 1 tablet in the evening. ascorbic 0 Yes [id number] 500mg Take 1 [facility] nivers acid, 9-16 tablet by ity of vitamin C, 00:00: mouth [place] 500 mg 00 the Medical tablet morning Branch and 1 tablet at noon and 1 tablet in the evening. ferrous 0 Yes [id number] 325mg Take 1 [facility] loli sulfate 325 9-16 tablet by [facility] of mg (65 mg 00:00: mouth [place] 00 the [facility] tablet morning Branch and 1 tablet in the evening. ascorbic 2021-0 Yes [id number] 500mg Take 1 [facility] nivers acid, 9-16 tablet by ity of vitamin C, 00:00: mouth [place] 500 mg 00 the Medical tablet morning Branch and 1 tablet at noon and 1 tablet in the evening. ferrous 2021-0 Yes [id number] 325mg Take 1 [facility] loli sulfate 325 9-16 tablet by [facility] mg (65 mg 00:00: mouth [place] 00 the [facility] tablet morning Branch and 1 tablet in the evening. ascorbic 2021-0 Yes [id number] 500mg Take 1 [facility] nivers acid, 9-16 tablet by ity of vitamin C, 00:00: mouth [place] 500 mg 00 the Medical tablet morning Branch and 1 tablet at noon and 1 tablet in the evening. ferrous 2021-0 Yes [id number] 325mg Take 1 Un loli sulfate 325 9-16 tablet by [facility] mg (65 mg 00:00: mouth [place] 00 the [facility] tablet morning Branch and 1 tablet in the evening. ascorbic 2021-0 Yes [id number] 500mg Take 1 [facility] nivers acid, 9-16 tablet by ity of vitamin C, 00:00: mouth [place] 500 mg 00 the Medical tablet morning Branch and 1 tablet at noon and 1 tablet in the evening. ferrous 2021-0 Yes [id number] 325mg Take 1 Un loli sulfate 325 9-16 tablet by [facility] of mg (65 mg 00:00: mouth [place] 00 the [facility] tablet morning Branch and 1 tablet in the evening. ascorbic 2021-0 Yes [id number] 500mg Take 1 [facility] nivers acid, 9-16 tablet by ity of vitamin C, 00:00: mouth [place] 500 mg 00 the Medical tablet morning Branch and 1 tablet at noon and 1 tablet in the evening. ferrous 2021-0 Yes [id number] 325mg Take 1 [facility] loli sulfate 325 9-16 tablet by [facility] mg (65 mg 00:00: mouth [place] 00 the [facility] tablet morning Branch and 1 tablet in the evening. ascorbic 0 Yes [id number] 500mg Take 1 [facility] nivers acid, 9-16 tablet by ity of vitamin C, 00:00: mouth [place] 500 mg 00 the Medical tablet morning Branch and 1 tablet at noon and 1 tablet in the evening. ferrous 2021-0 Yes [id number] 325mg Take 1 [facility] loli sulfate 325 9-16 tablet by [facility] of mg (65 mg 00:00: mouth [place] 00 the [facility] tablet morning Branch and 1 tablet in the evening. ascorbic 2021-0 Yes [id number] 500mg Take 1 [facility] nivers acid, 9-16 tablet by ity of vitamin C, 00:00: mouth [place] 500 mg 00 the Medical tablet morning Branch and 1 tablet at noon and 1 tablet in the evening. ferrous 2021-0 Yes [id number] 325mg Take 1 [facility] loli sulfate 325 9-16 tablet by [facility] mg (65 mg 00:00: mouth [place] 00 the [facility] tablet morning Branch and 1 tablet in the evening. ascorbic 2022-0 Yes [id number] 500mg Take 1 [facility] n[facility] acid, 9-16 tablet by ity of vitamin C, 00:00: mouth [place] 500 mg 00 the Medical tablet morning Branch and 1 tablet at noon and 1 tablet in the evening. ferrous 2021-0 Yes [id number] 325mg Take 1 [facility] loli sulfate 325 9-16 tablet by [facility] mg (65 mg 00:00: mouth [place] 00 the [facility] tablet morning Branch and 1 tablet in the evening. ascorbic 2021-0 Yes [id number] 500mg Take 1 [facility] nivers acid, 9-16 tablet by ity of vitamin C, 00:00: mouth [place] 500 mg 00 the Medical tablet morning Branch and 1 tablet at noon and 1 tablet in the evening. ferrous 0 Yes [id number] 325mg Take 1 [facility] loli sulfate 325 9-16 tablet by [facility] of mg (65 mg 00:00: mouth [place] 00 the [facility] tablet morning Branch and 1 tablet in the evening. ascorbic 2021-0 Yes [id number] 500mg Take 1 [facility] nivers acid, 9-16 tablet by ity of vitamin C, 00:00: mouth [place] 500 mg 00 the Medical tablet morning Branch and 1 tablet at noon and 1 tablet in the evening. ferrous 2021-0 Yes [id number] 325mg Take 1 Un loli sulfate 325 9-16 tablet by [facility] of mg (65 mg 00:00: mouth [place] 00 the [facility] tablet morning Branch and 1 tablet in the evening. ascorbic 2021-0 Yes [id number] 500mg Take 1 [facility] nivers acid, 9-16 tablet by ity of vitamin C, 00:00: mouth [place] 500 mg 00 the Medical tablet morning Branch and 1 tablet at noon and 1 tablet in the evening. ferrous 2021-0 Yes [id number] 325mg Take 1 Un loli sulfate 325 9-16 tablet by [facility] of mg (65 mg 00:00: mouth [place] 00 the [facility] tablet morning Branch and 1 tablet in the evening. ascorbic 2021-0 Yes [id number] 500mg Take 1 [facility] nivers acid, 9-16 tablet by ity of vitamin C, 00:00: mouth [place] 500 mg 00 the Medical tablet morning Branch and 1 tablet at noon and 1 tablet in the evening. ferrous 2021-0 Yes [id number] 325mg Take 1 Un loli sulfate 325 9-16 tablet by [facility] of mg (65 mg 00:00: mouth [place] 00 the [facility] tablet morning Branch and 1 tablet in the evening. ascorbic 2021-0 Yes [id number] 500mg Take 1 [facility] nivers acid, 9-16 tablet by ity of vitamin C, 00:00: mouth [place] 500 mg 00 the Medical tablet morning Branch and 1 tablet at noon and 1 tablet in the evening. ferrous 2021-0 Yes [id number] 325mg Take 1 Un loli sulfate 325 9-16 tablet by [facility] of mg (65 mg 00:00: mouth [place] 00 the Medical tablet morning Branch and 1 tablet in the evening. ascorbic 0 Yes [id number] 500mg Take 1 [facility] nivers acid, 9-16 tablet by ity of vitamin C, 00:00: mouth [place] 500 mg 00 the Medical tablet morning Branch and 1 tablet at noon and 1 tablet in the evening. ferrous 0 Yes [id number] 325mg Take 1 Un loli sulfate 325 9-16 tablet by [facility] of mg (65 mg 00:00: mouth [place] 00 the Medical tablet morning Branch and 1 tablet in the evening. ascorbic 0 Yes [id number] 500mg Take 1 [facility] nivers acid, 9-16 tablet by ity of vitamin C, 00:00: mouth [place] 500 mg 00 the Medical tablet morning Branch and 1 tablet at noon and 1 tablet in the evening. ferrous 0 Yes [id number] 325mg Take 1 Un loli sulfate 325 9-16 tablet by [facility] of mg (65 mg 00:00: mouth [place] 00 the Medical tablet morning Branch and 1 tablet in the evening. ascorbic 0 Yes [id number] 500mg Take 1 [facility] nivers acid, 9-16 tablet by ity of vitamin C, 00:00: mouth [place] 500 mg 00 the Medical tablet morning Branch and 1 tablet at noon and 1 tablet in the evening. ferrous 0 Yes [id number] 325mg Take 1 Un loli sulfate 325 9-16 tablet by [facility] of mg (65 mg 00:00: mouth [place] 00 the Medical tablet morning Branch and 1 tablet in the evening. ascorbic 2022-0 Yes [id number] 500mg Take 1 [facility] nivers acid, 9-16 tablet by ity of vitamin C, 00:00: mouth [place] 500 mg 00 the Medical tablet morning Branch and 1 tablet at noon and 1 tablet in the evening. ferrous 2021-0 Yes [id number] 325mg Take 1 Un loli sulfate 325 9-16 tablet by [facility] of mg (65 mg 00:00: mouth [place] 00 the Medical tablet morning Branch and 1 tablet in the evening. ascorbic 0 Yes [id number] 500mg Take 1 U nivers acid, 9-16 tablet by ity of vitamin C, 00:00: mouth [place] 500 mg 00 the Medical tablet morning Branch and 1 tablet at noon and 1 tablet in the evening. ferrous 2021-0 Yes [id number] 325mg Take 1 Un loli sulfate 325 9-16 tablet by [facility] of mg (65 mg 00:00: mouth [place] 00 the Medical tablet morning Branch and 1 tablet in the evening. ascorbic 0 Yes [id number] 500mg Take 1 [facility] nivers acid, 9-16 tablet by ity of vitamin C, 00:00: mouth [place] 500 mg 00 the Medical tablet morning Branch and 1 tablet at noon and 1 tablet in the evening. ferrous 2021-0 Yes [id number] 325mg Take 1 Un loli sulfate 325 9-16 tablet by [facility] of mg (65 mg 00:00: mouth [place] 00 the Medical tablet morning Branch and 1 tablet in the evening. ascorbic 2021-0 Yes [id number] 500mg Take 1 U nivers acid, 9-16 tablet by ity of vitamin C, 00:00: mouth [place] 500 mg 00 the Medical tablet morning Branch and 1 tablet at noon and 1 tablet in the evening. ferrous 2021-0 Yes [id number] 325mg Take 1 Un loli sulfate 325 9-16 tablet by [facility] of mg (65 mg 00:00: mouth [place] 00 the Medical tablet morning Branch and 1 tablet in the evening. ascorbic 2021-0 Yes [id number] 500mg Take 1 U nivers acid, 9-16 tablet by ity of vitamin C, 00:00: mouth [place] 500 mg 00 the Medical tablet morning Branch and 1 tablet at noon and 1 tablet in the evening. ferrous 2021-0 Yes [id number] 325mg Take 1 Un loli sulfate 325 9-16 tablet by [facility]y of mg (65 mg 00:00: mouth [place] 00 the Medical tablet morning Branch and 1 tablet in the evening. ascorbic 2021-0 Yes [id number] 500mg Take 1 U nivers acid, 9-16 tablet by ity of vitamin C, 00:00: mouth in [place] 500 mg 00 the Medical tablet morning Branch and 1 tablet at noon and 1 tablet in the evening. ferrous 2021-0 Yes [id number] 325mg Take 1 Un loli sulfate 325 9-16 tablet by [facility] of mg (65 mg 00:00: mouth [place] 00 the Medical tablet morning Branch and 1 tablet in the evening. proMETHazin 2021-0 Yes [id number] 25mg Take 1 [facility] e 25 mg 4-29 tablet by ity of tablet 00:00: mouth [place] 00 every 6 Medical (six) Branch hours as needed for Nausea and Vomiting (N/V). PNV 67-iron 2021-0 Yes [id number] 1{each} Take 1 [facility] ps-folate 4-29 Each by ity of no.1-dha 00:00: mouth [place] (VITAFOL 00 daily. Medical ULTRA) 29 Branch mg iron- 1 mg-200 mg Cap proMETHazin 2021-0 Yes [id number] 25mg Take 1 [facility] e 25 mg 4-29 tablet by ity of tablet 00:00: mouth [place] 00 every 6 Medical (six) Branch hours as needed for Nausea and Vomiting (N/V). PNV 67-iron 2021-0 Yes [id number] 1{each} Take 1 [facility] ps-folate 4-29 Each by ity of no.1-dha 00:00: mouth [place] (VITAFOL 00 daily. Medical ULTRA) 29 Branch mg iron- 1 mg-200 mg Cap proMETHazin 2022-0 Yes [id number] 25mg Take 1 [facility] e 25 mg 4-29 tablet by ity of tablet 00:00: mouth [place] 00 every 6 Medical (six) Branch hours as needed for Nausea and Vomiting (N/V). PNV 67-iron 2021-0 Yes [id number] 1{each} Take 1 [facility] ps-folate 4-29 Each by ity of no.1-dha 00:00: mouth [place] (VITAFOL 00 daily. Medical ULTRA) 29 Branch mg iron- 1 mg-200 mg Cap proMETHazin 2022-0 Yes [id number] 25mg Take 1 [facility] e 25 mg 4-29 tablet by ity of tablet 00:00: mouth [place] 00 every 6 Medical (six) Branch hours as needed for Nausea and Vomiting (N/V). PNV 67-iron 2022-0 Yes [id number] 1{each} Take 1 [facility] ps-folate 4-29 Each by ity of no.1-dha 00:00: mouth [place] (VITAFOL 00 daily. Medical ULTRA) 29 Branch mg iron- 1 mg-200 mg Cap proMETHazin 2022-0 Yes [id number] 25mg Take 1 [facility] e 25 mg 4-29 tablet by ity of tablet 00:00: mouth [place] 00 every 6 Medical (six) Branch hours as needed for Nausea and Vomiting (N/V). PNV 67-iron 2022-0 Yes [id number] 1{each} Take 1 [facility] ps-folate 4-29 Each by ity of no.1-dha 00:00: mouth [place] (VITAFOL 00 daily. Medical ULTRA) 29 Branch mg iron- 1 mg-200 mg Cap proMETHazin 2022-0 Yes [id number] 25mg Take 1 [facility] e 25 mg 4-29 tablet by ity of tablet 00:00: mouth [place] 00 every 6 Medical (six) Branch hours as needed for Nausea and Vomiting (N/V). PNV 67-iron 2022-0 Yes [id number] 1{each} Take 1 [facility] ps-folate 4-29 Each by ity of no.1-dha 00:00: mouth [place] (VITAFOL 00 daily. Medical ULTRA) 29 Branch mg iron- 1 mg-200 mg Cap proMETHazin 2022-0 Yes [id number] 25mg Take 1 [facility] e 25 mg 4-29 tablet by ity of tablet 00:00: mouth [place] 00 every 6 Medical (six) Branch hours as needed for Nausea and Vomiting (N/V). PNV 67-iron 2022-0 Yes [id number] 1{each} Take 1 [facility] ps-folate 4-29 Each by ity of no.1-dha 00:00: mouth [place] (VITAFOL 00 daily. Medical ULTRA) 29 Branch mg iron- 1 mg-200 mg Cap proMETHazin 2022-0 Yes [id number] 25mg Take 1 [facility] e 25 mg 4-29 tablet by ity of tablet 00:00: mouth [place] 00 every 6 Medical (six) Branch hours as needed for Nausea and Vomiting (N/V). PNV 67-iron 2022-0 Yes [id number] 1{each} Take 1 [facility] ps-folate 4-29 Each by ity of no.1-dha 00:00: mouth [place] (VITAFOL 00 daily. Medical ULTRA) 29 Branch mg iron- 1 mg-200 mg Cap proMETHazin 2-0 Yes [id number] 25mg Take 1 [facility] e 25 mg 4-29 tablet by ity of tablet 00:00: mouth [place] 00 every 6 Medical (six) Branch hours as needed for Nausea and Vomiting (N/V). PNV 67-iron 2022-0 Yes [id number] 1{each} Take 1 [facility] ps-folate 4-29 Each by ity of no.1-dha 00:00: mouth [place] (VITAFOL 00 daily. Medical ULTRA) 29 Branch mg iron- 1 mg-200 mg Cap proMETHazin 2-0 Yes [id number] 25mg Take 1 [facility] e 25 mg 4-29 tablet by ity of tablet 00:00: mouth [place] 00 every 6 Medical (six) Branch hours as needed for Nausea and Vomiting (N/V). PNV 67-iron 2-0 Yes [id number] 1{each} Take 1 [facility] ps-folate 4-29 Each by ity of no.1-dha 00:00: mouth [place] (VITAFOL 00 daily. Medical ULTRA) 29 Branch mg iron- 1 mg-200 mg Cap proMETHazin 2-0 Yes [id number] 25mg Take 1 [facility] e 25 mg 4-29 tablet by ity of tablet 00:00: mouth [place] 00 every 6 Medical (six) Branch hours as needed for Nausea and Vomiting (N/V). PNV 67-iron 2022-0 Yes [id number] 1{each} Take 1 [facility] ps-folate 4-29 Each by ity of no.1-dha 00:00: mouth [place] (VITAFOL 00 daily. Medical ULTRA) 29 Branch mg iron- 1 mg-200 mg Cap proMETHazin 2022-0 Yes [id number] 25mg Take 1 [facility] e 25 mg 4-29 tablet by ity of tablet 00:00: mouth [place] 00 every 6 Medical (six) Branch hours as needed for Nausea and Vomiting (N/V). PNV 67-iron 2021-0 Yes [id number] 1{each} Take 1 [facility] ps-folate 4-29 Each by ity of no.1-dha 00:00: mouth [place] (VITAFOL 00 daily. Medical ULTRA) 29 Branch mg iron- 1 mg-200 mg Cap PNV 67-iron 2021-0 Yes [id number] 1{each} Take 1 [facility] ps-folate 4-29 Each by ity of no.1-dha 00:00: mouth [place] (VITAFOL 00 daily. Medical ULTRA) 29 Branch mg iron- 1 mg-200 mg Cap PNV 67-iron 2021-0 Yes [id number] 1{each} Take 1 [facility] ps-folate 4-29 Each by ity of no.1-dha 00:00: mouth [place] (VITAFOL 00 daily. Medical ULTRA) 29 Branch mg iron- 1 mg-200 mg Cap PNV 67-iron 2021-0 Yes [id number] 1{each} Take 1 [facility] ps-folate 4-29 Each by ity of no.1-dha 00:00: mouth [place] (VITAFOL 00 daily. Medical ULTRA) 29 Branch mg iron- 1 mg-200 mg Cap PNV 67-iron 2021-0 Yes [id number] 1{each} Take 1 [facility] ps-folate 4-29 Each by ity of no.1-dha 00:00: mouth [place] (VITAFOL 00 daily. Medical ULTRA) 29 Branch mg iron- 1 mg-200 mg Cap PNV 67-iron 2021-0 Yes [id number] 1{each} Take 1 [facility] ps-folate 4-29 Each by ity of no.1-dha 00:00: mouth [place] (VITAFOL 00 daily. Medical ULTRA) 29 Branch mg iron- 1 mg-200 mg Cap PNV 67-iron 2021-0 Yes [id number] 1{each} Take 1 [facility] ps-folate 4-29 Each by ity of no.1-dha 00:00: mouth [place] (VITAFOL 00 daily. Medical ULTRA) 29 Branch mg iron- 1 mg-200 mg Cap PNV 67-iron 2021-0 Yes [id number] 1{each} Take 1 [facility] ps-folate 4-29 Each by ity of no.1-dha 00:00: mouth [place] (VITAFOL 00 daily. Medical ULTRA) 29 Branch mg iron- 1 mg-200 mg Cap PNV 67-iron 2021-0 Yes [id number] 1{each} Take 1 [facility] ps-folate 4-29 Each by ity of no.1-dha 00:00: mouth [place] (VITAFOL 00 daily. Medical ULTRA) 29 Branch mg iron- 1 mg-200 mg Cap PNV 67-iron 2021-0 Yes [id number] 1{each} Take 1 [facility] ps-folate 4-29 Each by ity of no.1-dha 00:00: mouth [place] (VITAFOL 00 daily. Medical ULTRA) 29 Branch mg iron- 1 mg-200 mg Cap PNV 67-iron 2021-0 Yes [id number] 1{each} Take 1 [facility] ps-folate 4-29 Each by ity of no.1-dha 00:00: mouth [place] (VITAFOL 00 daily. Medical ULTRA) 29 Branch mg iron- 1 mg-200 mg Cap PNV 67-iron 2021-0 Yes [id number] 1{each} Take 1 [facility] ps-folate 4-29 Each by ity of no.1-dha 00:00: mouth [place] (VITAFOL 00 daily. Medical ULTRA) 29 Branch mg iron- 1 mg-200 mg Cap PNV 67-iron 2021-0 Yes [id number] 1{each} Take 1 [facility] ps-folate 4-29 Each by ity of no.1-dha 00:00: mouth [place] (VITAFOL 00 daily. Medical ULTRA) 29 Branch mg iron- 1 mg-200 mg Cap proMETHazin 2021- No [id number] 25mg Take 1 [facility] e 25 mg 4-29 10-23 tablet by ity of tablet 00:00: 00:00 mouth [place] 00 :00 every 6 Medical (six) Branch hours as needed for Nausea and Vomiting (N/V). Immunizations Ordered Filled Immunization Date Status Comments [facility] e Immunization Name Name TD 2022-08-20 Completed University of 00:00:00 [facility] TD 2022-08-20 Completed University of 00:00:00 [facility] TDAP 2022-08-20 Completed University of 00:00:00 [facility] TDAP 2022-08-20 Completed University of 00:00:00 [facility] TDAP 2022-08-20 Completed University of 00:00:00 [facility] [place] [facility] TDAP 2022-08-20 Completed University of 00:00:00 [facility] [place] [facility] TDAP 2022-08-20 Completed University of 00:00:00 [facility] [place] [facility] TDAP 2022-08-20 Completed University of 00:00:00 [facility] TDAP 2022-08-20 Completed University of 00:00:00 [facility] TDAP 2022-08-20 Completed University of 00:00:00 [facility] TDAP 2022-08-20 Completed University of 00:00:00 [facility] TDAP 2022-08-20 Completed University of 00:00:00 [facility] TDAP 2022-08-20 Completed University of 00:00:00 [facility] TDAP 2022-08-20 Completed [facility] of 00:00:00 [facility]22[facility]08[facility]20 [facility] TDAP 2022-08-20 Completed [facility] 00:00:00 [facility] TDAP 2022-08-20 Completed University of 00:00:00 [facility] TDAP 2022-08-20 Completed University of 00:00:00 [facility] TDAP 2022-08-20 Completed [facility] 00:00:00 [facility] Vital Signs Vital Name Observation Time Observation Value Comments Source Systolic blood 2022-11-16 105 mm[Hg] University of pressure 15:33:00 [facility] Diastolic blood 2022-11-16 70 mm[Hg] University o f pressure 15:33:00 [facility] Heart rate 2022-11-16 104 /min University of 15:33:00 [facility] Body temperature 2022-11-16 36.17 [place] [facility] of 15:33:00 [facility] Respiratory rate 2022-11-16 20 /min University of 15:33:00 [facility] Body height 2022-11-16 160 cm University of 15:33:00 [facility] Body weight 2022-11-16 99.882 kg University of 15:33:00 [facility] BMI 2022-11-16 39.01 kg/m2 University of 15:33:00 [facility] Systolic blood 2022-11-11 120 mm[Hg] University of pressure 19:02:00 [facility] Diastolic blood 2022-11-11 72 mm[Hg] University o f pressure 19:02:00 [facility] Heart rate 2022-11-11 92 /min University of 18:51:00 [facility] Body temperature 2022-11-11 36.78 [place] [facility] of 18:51:00 [facility] Oxygen saturation 2022-11-11 98 /min University of in Arterial blood 18:51:00 [facility] natalie by Pulse oximetry Branch Systolic blood 2022-11-11 128 mm[Hg] University of pressure 00:02:00 [facility] Diastolic blood 2022-11-11 88 mm[Hg] University o f pressure 00:02:00 [facility] Heart rate 2022-11-11 75 /min University of 00:02:00 [facility] Respiratory rate 2022-11-11 18 /min University of 00:02:00 [facility] Oxygen saturation 2022-11-11 98 /min University of in Arterial blood 00:02:00 [facility] by Pulse oximetry Branch Body temperature 2022-11-10 37.22 [place] [facility] of 21:50:00 [facility] Body height 2022-11-10 160 cm University of 21:50:00 [facility] Body weight 2022-11-10 104.327 kg University of 21:50:00 [facility] BMI 2022-11-10 40.74 kg/m2 University of 21:50:00 [facility] Heart rate 2022-11-08 119 /min University of 13:40:00 [facility] Systolic blood 2022-11-08 145 mm[Hg] pt was in pain. University of pressure 13:28:00 nurse will [facility] recheck pulse Branch Diastolic blood 2022-11-08 79 mm[Hg] pt was in pain. Universit y of pressure 13:28:00 nurse will [facility] recheck pulse Branch Body temperature 2022-11-08 37 [place] [facility] of 13:28:00 [facility] Respiratory rate 2022-11-08 20 /min University of 13:28:00 [facility] Oxygen saturation 2022-11-08 97 /min University of in Arterial blood 13:28:00 [facility] natalie by Pulse oximetry Branch Body weight 2022-11-06 110 kg University of 20:30: [facility] BMI 2022-11-06 42.97 kg/m2 University of 20:30:00 [facility] Systolic blood 2022-11-07 121 mm[Hg] University of pressure 09:00:00 [facility] Diastolic blood 2022-11-07 56 mm[Hg] University o f pressure 09:00:00 [facility] Heart rate 2022-11-07 107 /min University of 09:00:00 [facility] Respiratory rate 2022-11-07 18 /min University of 09:00:00 [facility] Oxygen saturation 2022-11-07 98 /min University of in Arterial blood 09:00:00 [facility] natalie by Pulse oximetry Branch Body temperature 2022-11-07 38.44 [place] [facility] of 08:30:00 [facility] Body weight 2022-11-06 110 kg University of 20:30: [facility] BMI 2022-11-06 42.97 kg/m2 University of 20:30:00 [facility] Systolic blood 2022-10-30 119 mm[Hg] University of pressure 18:30:00 [facility] Diastolic blood 2022-10-30 84 mm[Hg] University o f pressure 18:30:00 [facility] Heart rate 2022-10-30 88 /min University of 18:30: [facility] Body temperature 2022-10-30 36.78 Aicha University of 18:30:00 [facility] Respiratory rate 2022-10-30 18 /min University of 18:30:00 [facility] Body height 2022-10-30 160 cm University of 18:30:00 [facility] Body weight 2022-10-30 110 kg University of 18:30:00 [facility] BMI 2022-10-30 42.97 kg/m2 University of 18:30:00 [facility] Oxygen saturation 2022-10-30 99 /min University of in Arterial blood 18:30:00 [facility] by Pulse oximetry Branch Systolic blood 2022-10-23 117 mm[Hg] University of pressure 16:06:00 [facility] Diastolic blood 2022-10-23 70 mm[Hg] University o f pressure 16:06:00 [facility] Heart rate 2022-10-23 99 /min University of 16:06:00 [facility] Body temperature 2022-10-23 36.39 Aicha University of 16:06:00 [facility] Respiratory rate 2022-10-23 20 /min University of 16:06:00 [facility] Body height 2022-10-23 160 cm University of 16:06:00 [facility] Body weight 2022-10-23 109.272 kg University of 16:06:00 [facility] BMI 2022-10-23 42.67 kg/m2 University of 16:06:00 [facility] Systolic blood 2022-10-11 128 mm[Hg] University of pressure 17:21:00 [facility] Diastolic blood 2022-10-11 69 mm[Hg] University o f pressure 17:21:00 [facility] Heart rate 2022-10-11 107 /min University of 17:21:00 [facility] Body temperature 2022-10-11 36.61 Aicha University of 17:21:00 [facility] Respiratory rate 2022-10-11 16 /min University of 17:21:00 [facility] Body height 2022-10-11 160 cm University of 17:21:00 [facility] Body weight 2022-10-11 107.616 kg University of 17:21:00 [facility] BMI 2022-10-11 42.03 kg/m2 University of 17:21:00 [facility] Systolic blood 2022-10-06 109 mm[Hg] University of pressure 17:03:00 [facility] Diastolic blood 2022-10-06 68 mm[Hg] University o f pressure 17:03:00 [facility] Heart rate 2022-10-06 100 /min University of 17:03:00 [facility] Body temperature 2022-10-06 36.06 Aicha University of 17:03:00 [facility] Respiratory rate 2022-10-06 18 /min University of 17:03:00 [facility] Body height 2022-10-06 160 cm University of 17:03:00 [facility] Body weight 2022-10-06 106.737 kg University of 17:03:00 [facility] BMI 2022-10-06 41.68 kg/m2 University of 17:03:00 [facility] Systolic blood 2022-10-01 113 mm[Hg] University of pressure 21:09:00 [facility] Diastolic blood 2022-10-01 68 mm[Hg] University o f pressure 21:09:00 [facility] Heart rate 2022-10-01 98 /min University of :09:00 [facility] Body temperature 2022-10-01 36.56 Aicha University of :09:00 [facility] Respiratory rate 2022-10-01 16 /min University of :09:00 [facility] Body height 2022-10-01 160 cm University of 21:09:00 [facility] Body weight 2022-10-01 105.461 kg University of ::00 [facility] BMI 2022-10-01 41.19 kg/m2 University of :09:00 [facility] Systolic blood 2022-09-16 117 mm[Hg] University of pressure 21:10:00 [facility] Diastolic blood 2022-09-16 66 mm[Hg] University o f pressure 21:10:00 [facility] Heart rate 2022-09-16 98 /min University of :10:00 [facility] Body temperature 2022-09-16 36.28 Aicha University of ::00 [facility] Respiratory rate 2022-09-16 18 /min University of ::00 [facility] Body height 2022-09-16 160 cm University of ::00 [facility] Body weight 2022-09-16 104.441 kg University of ::00 [facility] BMI 2022-09-16 40.79 kg/m2 University of 21:10:00 [facility] Systolic blood 2022-09-02 109 mm[Hg] University of pressure 20:30:00 [facility] Diastolic blood 2022-09-02 70 mm[Hg] University o f pressure 20:30:00 [facility] Heart rate 2022-09-02 106 /min University of 20:30:00 [facility] Body temperature 2022-09-02 36.39 Aicha University of 20:30:00 [facility] Respiratory rate 2022-09-02 17 /min University of 20:30:00 [facility] Body height 2022-09-02 160 cm University of 20:30:00 [facility] Body weight 2022-09-02 103.42 kg University of 20:30:00 [facility] BMI 2022-09-02 40.39 kg/m2 University 20:30:00 [facility] Systolic blood 2022-08-19 116 mm[Hg] University of pressure 21:27:00 [facility] Diastolic blood 2022-08-19 61 mm[Hg] University o f pressure 21:27:00 [facility] Heart rate 2022-08-19 100 /min [facility] 21:27:00 [facility] Body temperature 2022-08-19 36.44 Aicha [facility] 21:27:00 [facility] Respiratory rate 2022-08-19 18 /min [facility] 21:27:00 [facility] Body weight 2022-08-19 103.511 kg [facility] 21:27:00 [facility] BMI 2022-08-19 40.42 kg/m2 [facility] 21:27:00 [facility] Procedures Procedure Date / Time Performing Clinician Source Performed URINALYSIS 2022-11-10 22:22:00 Junior Sanchez [place] o f [facility] RAPID INFLUENZA A/B 2022-11-10 22:22:00 Junior Sanchez [facility] COVID-19 (ID NOW RAPID 2022-11-10 22:22:00 Junior Sanchez [facility] TESTING) [facility] CONSENT/REFUSAL FOR 2022-11-10 21:39:22 Doctor Unassigned, [facility] Name [facility] CBC WITH DIFF 2022-11-08 11:27:00 Antonio Oneil [facility] CBC WITH DIFF 2022-11-08 11:27:00 Antonio Oneil [facility] VENOUS CORD GAS 2022-11-07 07:15:00 Veto Stubbs [facility] VENOUS CORD GAS 2022-11-07 07:15:00 Veto Stubbs [facility] SECTION 2022-11-07 06:29:00 Steve Jimenez [facility] SECTION 2022-11-07 06:29:00 Steve Jimenez [facility] CENTRAL NEURAXIAL BLOCK 2022-11-06 05:38:50 Jonathan Bedoya Un [facility] CBC WITH DIFF 2022-11-05 15:09:00 Veto Stubbs [facility] HEPATITIS B SURFACE 2022-11-05 15:09:00 Veto Stubbs [facility] ANTIGEN [facility] HIV 1/2 AG-AB WITH 2022-11-05 15:09:00 Veto Stubbs [facility] REFLEX [facility] GALV ONLY - SYPHILIS 2022-11-05 15:09:00 Veto Stubbs [facility] IGG/IGM [facility] [place] CBC WITH DIFF 2022-11-05 15:09:00 Elvia Stubbsshua [facility] HEPATITIS B SURFACE 2022-11-05 15:09:00 Veto Stubbs [facility] ANTIGEN [facility] HIV 1/2 AG-AB WITH 2022-11-05 15:09:00 Veto Stubbs [facility] REFLEX [facility] GALV ONLY - SYPHILIS 2022-11-05 15:09:00 Veto Stubbs [facility]/IGM [facility] HB ABO GROUPING 2022-11-05 15:07:00 Elvia Stubbsshua [facility] RHO (D) IMMUNE GLOBULIN 2022-11-05 15:07:00 Antonio Oneil [facility] HB ABO GROUPING 2022-11-05 15:07:00 Elvia Stubbsshua [facility] RHO (D) IMMUNE GLOBULIN 2022-11-05 15:07:00 Antonio Oneil [facility] NOTICE OF PRIVACY 2022-10-30 18:16:50 Doctor Unassigned, No [facility] PRACTICES [facility] CONSENT/REFUSAL FOR 2022-10-30 18:11:51 Doctor Unassigned, No [facility] DIAGNOSIS AND TREATMENT [facility] POCT URINALYSIS 2022-10-23 00:00:00 Nataliia Dodson [facility] DME/SUPPLY JUSTIFICATION 2022-10-20 06:01:00 Doctor Unassigned, No [facility] POCT URINALYSIS 2022-10-11 17:22:00 Nataliia Dodson [facility] POCT URINALYSIS 2022-10-06 17:04:00 Nataliia Dodson [facility] POCT URINALYSIS 2022-10-01 21:10:00 Nataliia Dodson [facility] POCT URINALYSIS 2022-09-16 21:13:00 Nataliia Dodson [facility] POCT URINALYSIS 2022-09-02 00:00:00 Nataliia Dodson [facility] HIV 1/2 AG-AB WITH 2022-08-20 16:04:00 Nataliia Dodson [facility] GALV ONLY - SYPHILIS 2022-08-20 16:04:00 [facility] IGG[facility]IGM [facility] TDAP VACCINE, >11 YRS, 2022-08-19 21:20:21 Nataliia Dodson [facility] Encounters Start End Encounter Admission Attending Care Care Encounter Source Date/Time Date/Time Type Type Clinicians Facility Department ID 2022-11-30 2022-11-30 Outpatient R [facility] [id number] Univers 14:00:00 14:00:00 [facility] 2022-11-25 2022-11-25 Telephone Ivory VAFABIOLA 1.2.840.114 [id number] Univers 00:00:00 00:00:00 Nataliia King FINE [employer]S TEACHER 350.1.13.10 ity of [facility] 4.2.7.2.686 Julio as MATERNAL [id number] Med ical & CHILD [address] [place] [address] 2022-11-16 2022-11-16 Nurse Visit, Jesus-Rmchp Nurse [facility] 1.2 .840.114 [id number] Univers 09:30:00 09:30:00 Visit Katrin Khalil FINE ARTS TEACHER 350 .1.13.10 ity of Nataliia Dodson [facility] 4.2.7.2.68 6 [place] MATERNAL [id number] Med ical & CHILD [address] [place] [address] 2022-11-16 2022-11-16 Outpatient R AKINTONNY, [facility] [id number] Univers 09:30:00 09:07:58 NATALIIA hendrix o f [facility] 2022-11-11 2022-11-11 Outpatient P VISH [facility] JERRELL [id number] Univers 12:39:00 14:15:00 BIANKA hendrix [facility] 2022-11-11 2022-11-11 [facility] Vish SHABANA 1.2.840.114 [id number] Univers 12:39:00 14:15:00 Encounter Bianka JERICHO 350.1.13.10 ity [facility] 4.2.7.2.686 [place] [id number] [facility] 140 Branch 2022-11-11 2022-11-11 Telephone SHABANA Jimenez 1.2.840.114 [id number] Univers 00:00:00 00:00:00 Steve ECHAVARRIA 350.1.13.10 i ty [facility] 4.2.7.2.686 Julio as [id number] [facility] 013 Branch 2022-11-10 2022-11-10 Emergency X SANCHEZ [facility] ERT [id number] Univers 15:56:00 18:18:00 JUNIOR hendrix [facility] 2022-11-10 2022-11-10 Emergency Delroy Allen F [facility] 1.2. 840.114 [id number] Univers 15:56:00 18:18:00 Junior Sanchez 350.1.13.10 ity [facility] 4.2.7.2.686 [place] [facility] [phone] [facility] 084 Branch 2022-11-05 2022-11-08 Inpatient P SERGE [facility] JERRELL [id number] Univers 07:55:00 17:34:00 ROCKY hendrix [facility] 2022-11-05 2022-11-08 [facility] SHABANA Conrad 1.2.992.372 [id number] Univers 07:55:00 17:34:00 Encounter Rocky ECHAVARRIA 350.1.13.10 ity [facility] 4.2.7.2.686 Julio as [phone] [facility] [address] [place] 2022-11-07 2022-11-07 Surgery SHABANA Jimenez 1.2.840.114 [id number] Univers 01:15:00 03:00:00 Steve ECHAVARRIA 350.1.13.10 i ty of [facility] 4.2.7.2.686 Julio as [phone] [facility] [address] [place] 2022-11-05 2022-11-05 Anesthesia Jennifer Fajardo 1.2. 840.114 [id number] Univers 22:28:00 22:28:00 Event Amber Conde JERICHO 350.1.13.10 ity of [facility] 4.2.7.2.686 Julio as [id number] [facility] [address]13 [place] 2022-10-30 2022-10-30 Outpatient X ADUM, [facility] JERRELL [id number] Univers 12:23:00 13:45:00 AUDREY [facility] 2022-10-30 2022-10-30 [facility] 1.2.703.025 [id number] Univers 12:23:00 13:45:00 Audrey MOORE 350.1.13.10 ity of [place] 4.2.7.2.686 [place] [facility] [id number] [facility] 083 [place] 2022-10-28 2022-10-28 Outpatient R SIGIFREDO [facility] [id number] Univers 15:45:00 15:45:00 YOLY [facility] 2022-10-23 2022-10-23 Outpatient Aga SOSA [facility] [id number] Univers 10:15:00 10:30:34 ROSAMARIA hendrix [facility] 2022-10-23 2022-10-23 Routine Provider, [facility] 1 .2.840.114 [id number] Univers 10:15:00 10:30:34 Rosamaria Sosa FINE [employer]S TEACHER 350.1.13.10 ity of Visit [facility] 4.2.7.2.686 Julio as MATERNAL [id number] Med ical & CHILD [address] [place] [address] 2022-10-20 2022-10-20 Orders Doctor SHABANA 1.2.840.114 [id number] Univers 00:00:00 00:00:00 Only Unassigned, JERICHO 350.1.13.10 ity of [place] [facility] 4.2.7.2.686 Julio as [id number] [address] 2022-10-12 2022-10-12 Outpatient R [facility] [id number] Univers 13:15:00 13:15:00 ity of [facility] 2022-10-12 2022-10-12 [facility]phone [facility] 1.2.840.114 [id number] Univers 00:00:00 00:00:00 Nataliia C F[employer]S TEACHER 350.1.13.10 ity of [facility] 4.2.7.2.686 Julio as MATERNAL [id number] [facility] ical & CHILD [address] [place] [address] 2022-10-11 2022-10-11 [facility]ine [facility] 1..460.675 [id number] Univers 11:00:00 11:15:00 Nataliia King F[employer]S TEACHER 350.1.13.10 ity of Visit [facility] 4.2.7.2.686 Julio as MATERNAL [id number] [facility] & CHILD [address] [place] [address] 2022-10-11 2022-10-11 Outpatient R IVORY [facility] [id number] Univers 11:00:00 11:00:00 NATALIIA hendrix o f [facility] 2022-10-07 2022-10-07 Outpatient R SIGIFREDO [facility] [id number] Univers 14:00:00 14:00:00 YOLY [facility] 2022-10-06 2022-10-06 Outpatient R SIGIFREDO [facility] [id number] Univers 10:45:00 11:48:25 YOLY [facility] 2022-10-06 2022-10-06 Routine Provider, [facility] 1 .2.840.114 [id number] Univers 10:45:00 11:48:25 Yoly Mei FINE ARTS TEACHER 350.1.13. 10 ity of Visit REG[facility] 4.2.7.2.686 Julio as MATERNAL [id number] [facility] [address] [place] [address] 2022-10-04 2022-10-04 Outpatient R AKINSIPE, [facility] [id number] Univers 15:30:00 15:30:00 NATALIIA ity o f [facility] 2022-10-01 2022-10-01 Outpatient R AKINSIPE, [facility] [id number] Univers 14:45:00 15:40:54 NATALIIA ity o f [facility] 2022-10-01 2022-10-01 Routine Akinsipe, [facility] 1.2.228.856 [id number] Univers 14:45:00 15:40:54 Nataliia C FINE ARTS TEACHER 350.1.13.10 ity of Visit REGIONAL 4.2.7.2.686 Julio as MATERNAL [id number] [facility] & CHILD [address] [place] [address] 2022-09-16 2022-09-16 Routine Akinsipe, [facility] 1.2.618.853 [id number] Univers 16:00:00 16:15:00 Nataliia C FINE [employer]S TEACHER 350.1.13.10 ity of Visit REGIONAL 4.2.7.2.686 Julio as MATERNAL [id number] [facility] & CHILD [address] [place] [address] 2022-09-16 2022-09-16 Outpatient R AKINSIPE, [facility] [id number] Univers 16:00:00 16:00:00 NATALIIA ity o [facility] 2022-09-02 2022-09-02 Outpatient R AKINSIPE, [facility] [id number] Univers 15:30:00 15:44:03 NATALIIA ity o [facility] 2022-09-02 2022-09-02 Routine Akinsipe, [facility] 1.2.168.559 [id number] Univers 15:30:00 15:44:03 Nataliia C FINE [employer]S TEACHER 350.1.13.10 ity of Visit REGIONAL 4.2.7.2.686 Julio as MATERNAL [phone] [facility] [address] [place] [address] 2022-08-20 2022-08-20 Outpatient R AKINSIPE, [facility] [id number] Univers 10:30:00 11:08:03 NATALIIA ruma o sherine [facility] 2022-08-20 2022-08-20 Sap Pi Developer Lab, Ang-Rmchp [facility] 1.2.840. 114 [id number] [facility] 10:30:00 11:08:03 Visit Ivory Nataliia C FINE ARTS TEACHER 350.1.13. 10 ity of [facility] 4.2.7.2.686 Julio as MATERNAL [id number] [facility] ical & CHILD [address] [place] [address] 2022-08-19 2022-08-19 Outpatient R IVORY [facility] [id number] Univers 16:00:00 16:44:59 NATALIIA katesally basurto [facility] 2022-08-19 2022-08-19 Routine [facility] 1.2.996.391 [id number] Univers 16:00:00 16:44:59 Nataliia C FINE ARTS TEACHER 350.1.13.10 ity of Visit REGIONAL 4.2.7.2.686 Julio as MATERNAL [id number] [facility] & CHILD [address] [place] [address] 2022-08-06 2022-08-06 Outpatient P [facility] [id number] Univers 15:15:00 15:15:00 ity of [facility] 2022-08-06 2022-08-06 [facility] 1.2.840.114 [id number] Univers 00:00:00 00:00:00 Nataliia C FINE ARTS TEACHER 350.1.13.10 ity of [facility] 4.2.7.2.686 Julio as MATERNAL [id number] [facility] [address] [place] [address] 2022-08-06 2022-08-06 Telephone [facility] 1.2.840.114 [id number] Univers 00:00:00 00:00:00 Nataliia C FINE ARTS TEACHER 350.1.13.10 ity of REGIONAL 4.2.7.2.686 Julio as MATERNAL [id number] [facility] [address] [place] [address] 2022-08-05 2022-08-05 Routine Akinsipe, [facility] 1.2.165.453 [id number] Univers 13:00:00 13:21:54 Nataliia C FINE ARTS TEACHER 350.1.13.10 ity of Visit REGIONAL 4.2.7.2.686 Julio as MATERNAL [id number] [facility] [address] [place] [address] 2022-08-05 2022-08-05 Outpatient R AKINSIPE, [facility] [id number] Univers 13:00:00 13:21:54 NATALIIA ity o [facility] 2022-08-05 2022-08-05 Outpatient R AKINSIPE, [facility] [id number] Univers 13:00:00 13:21:54 NATALIIA ity o [facility] 2022-08-05 2022-08-05 Outpatient R AKINSIPE, [facility] [id number] Univers 13:00:00 13:00:00 NATALIIA ity o [facility] 2022-07-20 2022-07-20 [facility] 1.2.840.114 [id number] Univers 00:00:00 00:00:00 Nataliia C FINE ARTS TEACHER 350.1.13.10 ity of REGIONAL 4.2.7.2.686 Julio as MATERNAL [id number] [facility] & [address] 2022-07-19 2022-07-19 Sap Pi Developer Ultrasound, [facility] 1.2 .840.114 [id number] Univers 13:00:00 13:31:46 Visit Leola Greco FINE ARTS TEACHER 350.1. 13.10 ity of REGIONAL 4.2.7.2.686 Julio as MATERNAL [id number] [facility] [address] [facility] 2022-07-19 2022-07-19 Outpatient P [facility] [id number] Univers 13:00:00 13:00:00 ity of [facility] 2022-07-19 2022-07-19 Outpatient P KATHIE [facility] [id number] Univers 13:00:00 13:00:00 JUAN CARLOS it y of SLEOLA [facility] 2022-07-19 2022-07-19 Telephone [facility] 1.2.840.114 [id number] Univers 00:00:00 00:00:00 Nataliia C FINE ARTS TEACHER 350.1.13.10 ity of [facility] 4.2.7.2.686 Julio as MATERNAL [id number] [facility] & [address] 2022-07-05 2022-07-05 Routine [facility] 1.2.952.800 [id number] Univers 15:30:00 15:45:00 Nataliia C FINE ARTS TEACHER 350.1.13.10 ity of Visit [facility] 4.2.7.2.686 Julio as MATERNAL [id number] [address] 2022-07-05 2022-07-05 Outpatient R [facility] [id number] Univers 15:30:00 15:30:00 NATALIIA altamirano [facility] 2022-07-05 2022-07-05 Outpatient R [facility] [id number] Univers 15:30:00 15:30:00 NATALIIA hendrix o [facility] 2022-06-25 2022-06-25 Orders Doctor SHABANA 1.2.840.114 [id number] Univers 00:00:00 00:00:00 Only Unassigned, JERICHO 350.1.13.10 ity of [place] [facility] 4.2.7.2.686 Julio as [id number] [address] 2022-06-21 2022-06-21 Telephone [facility] 1.2.840.114 [id number] Univers 00:00:00 00:00:00 Nataliia C FINE ARTS TEACHER 350.1.13.10 ity of [facility] 4.2.7.2.686 Julio as MATERNAL [id number] [facility] & [address] 2022-06-18 2022-06-18 Sap Pi Developer Ultrasound, [facility] 1.2 .840.114 [id number] Univers 14:45:00 16:00:00 Visit Leatha Michele FINE ARTS TEACHER 350.1.13.10 ity of [facility] 4.2.7.2.686 Julio as MATERNAL [id number] [facility] ical & CHILD [address] [facility] 2022-06-18 2022-06-18 Outpatient P [facility] [id number] Univers 14:45:00 14:45:00 ity [facility] 2022-06-18 2022-06-18 Outpatient P RYNE, [facility] [id number] Univers 14:45:00 14:45:[address] [facility] [place] 2022-06-18 2022-06-18 Abstract [facility] 1.2.840.114 [id number] Univers 00:00:00 00:00:00 Nataliia C FINE ARTS TEACHER 350.1.13.10 ity of REGIONAL 4.2.7.2.686 Julio as MATERNAL [id number] [facility] [address] [place] [address] 2022-06-11 2022-06-11 [facility]phone [facility] 1.2.791.073 [id number] Univers 00:00:00 00:00:00 Rosyarya R FINE ARTS TEACHER 350.1.13.10 ity of REG[facility]AL 4.2.7.2.686 Julio as MATERNAL [id number] [facility] [address] [place] [address] 2022-06-07 2022-06-07 Routine [facility] 1.2.603.608 [id number] Univers 12:45:00 13:00:00 Nataliia King FINE ARTS TEACHER 350.1.13.10 ity of Visit REGIONAL 4.2.7.2.686 Julio as MATERNAL [id number] [facility] ical & CHILD [address] [place] [address] 2022-06-07 2022-06-07 Outpatient R AKINTONNY, [facility] [id number] Univers 12:45:00 12:45:00 NATALIIA basurto [facility] 2022-06-03 2022-06-03 Outpatient R AKINTUSHARPE, [facility] [id number] Univers 16:00:00 16:00:00 NATALIIA basurto [facility] 2022-05-14 2022-05-14 Outpatient R AKINSIPE, [facility] [id number] Univers 16:00:00 16:35:28 NATALIIA ity o f [facility] 2022-05-14 2022-05-14 Routine [facility] 1.2.648.422 [id number] Univers 16:00:00 16:35:28 Nataliia C FINE ARTS TEACHER 350.1.13.10 ity of Visit REGIONAL 4.2.7.2.686 Julio as MATERNAL [phone] [facility] ical & CHILD [address] [place] [address] 2022-05-14 2022-05-14 Orders Doctor SHABANA 1.2.840.114 [id number] Univers 00:00:00 00:00:00 Only Unassigned, JERICHO 350.1.13.10 ity of [place] [facility] 4.2.7.2.686 Julio as [phone] [facility] [address] 2022-04-30 2022-04-30 SHABANA Sandy 1.2.840.114 [id number] Univers 00:00:00 00:00:00 Triage Cecile JERICHO 350.1.13.10 it y of HOSPITAL 4.2.7.2.686 Julio as [phone] [facility] 019 [address] 2022-04-30 2022-04-30 SHABANA Zuleta 1.2.840.114 [id number] Univers 00:00:00 00:00:00 Triage Aneatrice JERICHO 350.1.13.10 ity of HOSPITAL 4.2.7.2.686 Julio as [phone] [facility] [facility] [address] 2022-04-29 2022-04-29 Telephone [facility] 1.2.840.114 [id number] Univers 00:00:00 00:00:00 Nataliia C FINE ARTS TEACHER 350.1.13.10 ity of [facility] 4.2.7.2.686 Julio as MATERNAL [phone] [facility] & CHILD [address] [place] [address] 2022-04-28 2022-04-28 SHABANA Sandy 1.2.840.114 [id number] Univers 00:00:00 00:00:00 Triage Cecile JERICHO 350.1.13.10 it y of HOSPITAL 4.2.7.2.686 Julio as [phone] [address] 2022-04-16 2022-04-16 [facility]ine [facility] 1.2.672.644 [id number] Univers 15:30:00 15:45:00 Nataliia C FINE ARTS TEACHER 350.1.13.10 ity of Visit [facility] 4.2.7.2.686 Julio as MATERNAL [phone] [facility] & CHILD [address] [place] [address] 2022-04-16 2022-04-16 [facility] [id number] Univers 15:30:00 15:30:00 NATALIIA ity o f [facility] 2022-04-14 2022-04-14 Abstract [facility] 1.2.840.114 [id number] Univers 00:00:00 00:00:00 Nataliia King FINE ARTS TEACHER 350.1.13.10 ity of [facility] 4.2.7.2.686 Julio as MATERNAL [id number] [facility] & CHILD [address] [place] [address] 2022-04-09 2022-04-09 Sap Pi Developer [facility] 1.2 .840.114 [id number] Univers 11:30:00 12:00:00 Visit Janette Thomson FINE ARTS TEACHER 350.1.13.10 ity of [facility] 4.2.7.2.686 Julio as MATERNAL [phone] [facility] & CHILD 369 [facility] 2022-04-09 2022-04-09 Outpatient P [facility] [id number] Univers 11:30:00 11:30:00 ity of [facility] 2022-04-09 2022-04-09 Outpatient P JANETTE THOMSON [facility] [id number] Univers 11:30:00 11:30:[address] 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 [facility] [place] [place] 2021-04-22 2021-04-22 [facility] 1.2.840.114 [id number] Univers 13:59:17 15:04:16 [facility]13.10 [facility] 4.2.7.2.[place] [phone] [place] [address] 2021-04-22 2021-04-22 Outpatient R ADUM, [facility] [id number] Univers 14:00:00 14:00:00 [facility] Results Test Description Test Time Test Comments Results Result Comments Source RHO (D) IMMUNE GLOBULIN 2022-11-07 14:35:32 Test Item Value Reference Range Interpretation Comme nts RHIG CANDIDATE? (test code = No- see comment Patient is not a candidate for RhIg- 5055) Patient is Rh P ositive.Performed at [facility] Laboratory Services - GAL Blood [address] [place] [address] 00008Zede Free: [phone] A No. [id number] [facility] IMM[facility]E [id number] 14:35:32 Test Item Value Reference Range Interpretation Comments RHIG CANDIDATE? No- see comment Patient i s not a (test code = candidate for R hIg- 5055) Patient is Rh Positive.Perfor med at [facility] Laboratory Services - [facility] Blood [address] [place] [address] 78[address]Fgje Free: [phone] A No. [id number] [facility] [id number] 07:34:36 Test Item Value Reference Range Interpretation Comments BASE EXCESS, CORD (test mEq/L code = 0652419508) AC PH, CORD (BEAKER) 7.18-7.38 (test code = 2620249988) PC02, CORD (test code = See_Comment [Au tomated message] 0284949188) The system whic h generated this result transmitted ref erence range: 32 - 66 mmHg. The reference r jaleesa was not used to interpret this result as normal/abnor mal. PO2, CORD (test code = See_Comment L [Aut omated message] 1960774865) The system zeeWAVESic h generated this result transmitted ref erence range: 10 - 30 mmHg. The reference r jaleesa was not used to interpret this result as normal/abnor mal. BICARBONATE, CORD (test See_Comment [Au tomated message] code = 7438018886) The syste m which generated this result transmitted ref erence range: 17 - 27 mEq/L. The reference r jaleesa was not used to interpret this result as normal/abnor mal. Lab Interpretation (test Abnormal code = 47608-7) [facility] CORD [id number] 07:34:36 Test Item Value Reference Range Interpretation Comments BASE EXCESS, CORD (test mEq/L code = 1413658999) AC PH, CORD (BEAKER) 7.18-7.38 (test code = 4236209337) PC02, CORD (test code = See_Comment [Au tomated message] 4553031336) The system zeeWAVESic h generated this result transmitted ref erence range: 32 - 66 mmHg. The reference r jaleesa was not used to interpret this result as normal/abnor mal. PO2, CORD (test code = See_Comment L [Aut omated message] 2996532380) The system whic h generated this result transmitted ref erence range: 10 - 30 mmHg. The reference r jaleesa was not used to interpret this result as normal/abnor mal. BICARBONATE, CORD (test See_Comment [Au tomated message] code = 4240621359) The syste m which generated this result transmitted ref erence range: 17 - 27 mEq/L. The reference r jaleesa was not used to interpret this result as normal/abnor mal. Lab Interpretation (test Abnormal code = 05597-3) [facility] CORD [id number] 07:27:55 Test Item Value Reference Range Interpretation Comments VENOUS BASE EXCESS, mEq/L CORD (test code = 0562006619) VENOUS PH, CORD (test 7.25-7.45 code = 3749588031) VENOUS PC02, CORD See_Comment [Automate d message] The (test code = system which ge nerated 1593268429) this result tra nsmitted reference range : 27 - 49 mmHg. The refer ence range was not used to interpret this result as normal/abnormal . VENOUS PO2, CORD (test See_Comment [Aut omated message] The code = 1664331733) system [facility] generated this result tra nsmitted reference range : 17 - 41 mmHg. The refer ence range was not used to interpret this result as normal/abnormal . VENOUS BICARBONATE, See_Comment [Automa steven message] The CORD (test code = system [facility] generated 6372130552) this result tra nsmitted reference range : 12 - 29 mEq/L. The refe rence range was not used to interpret this result as normal/abnormal . [facility] CORD [id number] 07:27:55 Test Item Value Reference Range Interpretation Comments VENOUS BASE EXCESS, mEq/L CORD (test code = 5189835695) VENOUS PH, CORD (test 7.25-7.45 code = 0801807141) VENOUS PC02, CORD See_Comment [Automate d message] The (test code = system which ge nerated 8680450120) this result tra nsmitted reference range : 27 - 49 mmHg. The refer ence range was not used to interpret this result as normal/abnormal . VENOUS PO2, CORD (test See_Comment [Aut omated message] The code = 7886903790) system [facility] generated this result tra nsmitted reference range : 17 - 41 mmHg. The refer ence range was not used to interpret this result as normal/abnormal . VENOUS BICARBONATE, See_Comment [Automa steven message] The CORD (test code = system whi ch generated 0798503228) this result tra nsmitted reference range : 12 - 29 mEq/L. The refe rence range was not used to interpret this result as normal/abnormal . [facility] ONLY - SYPHILIS [id number] 16:01:05 Test Item Value Reference Range Interpretation Comments Syphilis IgG/IgM (test Non-reactive Non-reactive code = 69807-2) KELSI (test code = KELSI) Non-reactive - No serologic evidence of T. pallidum infection. Cannot exclude incubating or early syphilis. Submit a second specimen in 2-4 weeks if syphilis is clinically suspected. Equivocal - Further testing to follow. Reactive - Further testing to follow. Lab Interpretation (test Normal code = 61258-4) [facility] ONLY - SYPHILIS [id number] 16:01:05 Test Item Value Reference Range Interpretation Comments Syphilis IgG/IgM (test Non-reactive Non-reactive code = 48475-6) KELSI (test code = KELSI) Non-reactive - No serologic evidence of T. pallidum infection. Cannot exclude incubating or early syphilis. Submit a second specimen in 2-4 weeks if syphilis is clinically suspected. Equivocal - Further testing to follow. Reactive - Further testing to follow. Lab Interpretation (test Normal code = 55950-4) General acute hospital 1/2 AG-AB WITH [id number] 19:15:57 Test Item Value Reference Range Interpretation Comments HIV Negative Negative Semi-quantitative (test code = 25925-0) KELSI (test code = Non-reactive for HIV-1 KELSI) antigen and HIV-1/HIV-2 antibodies. ?No laboratory evidence of HIV infection. ?Repeat in 2-4 weeks if acute HIV infection is suspected. General acute hospital 1/2 AG-AB WITH [id number] 19:15:57 Test Item Value Reference Range Interpretation Comments HIV Negative Negative Semi-quantitative (test code = 52258-7) KELSI (test code = Non-reactive for HIV-1 KELSI) antigen and HIV-1/HIV-2 antibodies. ?No laboratory evidence of HIV infection. ?Repeat in 2-4 weeks if acute HIV infection is suspected. [facility] System[facility] B Surface [id number] 16:51:38 Test Item Value Reference Range Interpretation Comments HBsAg Semi-Quantitative (test code = Negative Negative 5195-3) [facility] System[facility] Surface [id number] 16:51:38 Test Item Value Reference Range Interpretation Comments HBsAg Semi-Quantitative (test code = Negative Negative 5195-3) [facility] and Screen - ONCE [id number] 16:13:38 Test Item Value Reference Range Interpretation Comments ABO & RH (test code A POSITIVE Performe d at [facility] = 20) Laboratory [facility] Blood [facility] [place] [address]Pgkr Free: [phone] A No. [id number] IAT (test code = Negative Performed a t [facility] 1185) Laboratory [facility] Blood [address] [address]Lipn Free: [phone] A No. [id number] [facility] and Screen - ONCE [id number] 16:13:38 Test Item Value Reference Range Interpretation Comments ABO & RH (test code A POSITIVE Performe d at [facility] = 20) Laboratory [facility] Blood [address] s [address]Vrna Free: [phone] A No. [id number] IAT (test code = Negative Performed a t [facility] 1185) Laboratory [facility] Blood [address] s [address]Kwrp Free: [phone] A No. [id number] [facility] System[facility] with [id number] 15:38:33 Test Item Value Reference Range Interpretation Comments WBC (test code = See_Comment [Automated 4490-2) message] The sy stem which generated this result transmitted reference range : 4.30 - 11.10 10*3/?L. The reference range was not used to interpret this result as normal/abnormal . RBC (test code = See_Comment [Automated 769-8) message] The sy stem which generated this [...] RDW-SD (test code = 45.7 fL 39.0-49.9 42611-3) RDW-CV (test code = 16.0 % 12.0-15.5 H 788-0) PLT (test code = See_Comment [Automated 777-3) message] The sy stem which generated this result transmitted reference range : 166 - 358 10*3/ ?L. The reference r jaleesa was not used to interpret this result as normal/abnormal . MPV (test code = 10.8 fL 9.5-12.9 22307-2) NRBC/100 WBC (test See_Comment [Automat ed code = 4997111838) message] The system which generated this result transmitted reference range : 0.0 - 10.0 /100 WBCs. The refer ence range was not u sed to interpret th is result as normal/abnormal . NRBC x10^3 (test code See_Comment [Auto mated = 6447919050) message] The s ystem which generated this result transmitted reference range : 10*3/?L. The reference range was not used to interpret this result as normal/abnormal . GRAN MAT (NEUT) % 74.6 % (test code = 770-8) IMM GRAN % (test code 0.60 % = 9706062016) LYMPH % (test code = 18.6 % 736-9) MONO % (test code = 5.5 % 5905-5) EOS % (test code = 0.5 % 713-8) BASO % (test code = 0.2 % 706-2) GRAN MAT x10^3(ANC) 7.23 10*3/uL 1.88-7.09 H (test code = 6703150180) IMM GRAN x10^3 (test 0.06 10*3/uL 0.00-0.06 code = 4807859742) LYMPH x10^3 (test code 1.80 10*3/uL 1.32-3.29 = 731-0) MONO x10^3 (test code 0.53 10*3/uL 0.33-0.92 = 742-7) EOS x10^3 (test code = 0.05 10*3/uL 0.03-0.39 711-2) BASO x10^3 (test code 0.01-0.07 = 704-7) Lab Interpretation Abnormal (test code = 06287-4) [facility] with [id number] 15:38:33 Test Item Value Reference Range Interpretation Comments WBC (test code = See_Comment [Automated 7290-2) message] The sy stem which generated this result transmitted reference range : 4.30 - 11.10 10*3/?L. The reference range was not used to interpret this result as normal/abnormal . RBC (test code = See_Comment [Automated 049-8) message] The sy stem which generated this [...] RDW-SD (test code = 45.7 fL 39.0-49.9 91091-3) RDW-CV (test code = 16.0 % 12.0-15.5 H 788-0) PLT (test code = See_Comment [Automated 777-3) message] The sy stem which generated this result transmitted reference range : 166 - 358 10*3/ ?L. The reference r jaleesa was not used to interpret this result as normal/abnormal . MPV (test code = 10.8 fL 9.5-12.9 96482-0) NRBC/100 WBC (test See_Comment [Automat ed code = 0968041555) message] The system which generated this result transmitted reference range : 0.0 - 10.0 /100 WBCs. The refer ence range was not u sed to interpret th is result as normal/abnormal . NRBC x10^3 (test code See_Comment [Auto mated = 6951911692) message] The s ystem which generated this result transmitted reference range : 10*3/?L. The reference range was not used to interpret this result as normal/abnormal . GRAN MAT (NEUT) % 74.6 % (test code = 770-8) IMM GRAN % (test code 0.60 % = 4576723558) LYMPH % (test code = 18.6 % 736-9) MONO % (test code = 5.5 % 5905-5) EOS % (test code = 0.5 % 713-8) BASO % (test code = 0.2 % 706-2) GRAN MAT x10^3(ANC) 7.23 10*3/uL 1.88-7.09 H (test code = 0848017250) IMM GRAN x10^3 (test 0.06 10*3/uL 0.00-0.06 code = 5822757683) LYMPH x10^3 (test code 1.80 10*3/uL 1.32-3.29 = 731-0) MONO x10^3 (test code 0.53 10*3/uL 0.33-0.92 = 742-7) EOS x10^3 (test code = 0.05 10*3/uL 0.03-0.39 711-2) BASO x10^3 (test code 0.01-0.07 = 704-7) Lab Interpretation Abnormal (test code = 75504-6) [facility] [id number] 16:07:00 Test Item Value Reference Range Interpretation [...] U APPEAR (test code = 3267) . [facility] URINALYSIS W SPECIFIC [id number] 17:23:00 Test Item Value Reference Range Interpretation [...] U APPEAR (test code = 3267) .. [facility] URINALYSIS W SPECIFIC [id number] 17:04:00 Test Item Value Reference Range Interpretation [...] U APPEAR (test code = 3267) . [facility] URINALYSIS W SPECIFIC [id number] 17:04:00 Test Item Value Reference Range Interpretation [...] U APPEAR (test code = 3267) . [facility] URINALYSIS W SPECIFIC [id number] 21:10:00 Test Item Value Reference Range Interpretation [...] POCT U APPEAR (test code = 3267) [facility] URINALYSIS W SPECIFIC [id number] 21:10:00 Test Item Value Reference Range Interpretation [...] POCT U APPEAR (test code = 3267) [facility] URINALYSIS W SPECIFIC [id number] 21:13:00 Test Item Value Reference Range Interpretation [...] POCT U APPEAR (test code = 3267) [facility] URINALYSIS W SPECIFIC [id number] 20:34:00 Test Item Value Reference Range Interpretation [...] U APPEAR (test code = 3267) clear [facility] - SY[facility] [id number] 16:13:45 Test Item Value Reference Range Interpretation Comments Syphilis IgG/IgM (test Non-reactive Non-reactive code = 72667-7) KELSI (test code = KELSI) Non-reactive - No serologic evidence of T. pallidum infection. Cannot exclude incubating or early syphilis. Submit a second specimen in 2-4 weeks if syphilis is clinically suspected. Equivocal - Further testing to follow. Reactive - Further testing to follow. Lab Interpretation (test Normal code = 76365-9) [facility]-AB WITH [id number] 05:55:09 Test Item Value Reference Range Interpretation Comments HIV Negative Negative Semi-quantitative (test code = 82687-7) KELSI (test code = Non-reactive for HIV-1 KELSI) antigen and HIV-1/HIV-2 antibodies. ?No laboratory evidence of HIV infection. ?Repeat in 2-4 weeks if acute HIV infection is suspected. [facility]
--- NOTE | 2022-11-25 14:00 | EDPHYS ---
Physician Documentation [facility] Name: Neva Reyes Age: 22 yrs Sex: Female : 2000 Arrival Date: 11/25/2022 Time: 13:34 Bed 11 Private MD: ED Physician Seth Hand HPI: 11/25 14:02 This 22 yrs old Female presents to ER via Ambulatory with complaints of Post snw Surgical Pain. 14:02 Patient presents to ED for recheck of: c/s incision. The affected area is on the groin. snw Previous treatment: The patient was initially treated on November 07, 2022, the care was rendered at [facility]. 14:03 Progress: The patient reports excellent improvement in the affected area. There has snw been resolution, improvement, or non-development of any drainage, fever, pain, redness or swelling. It is unknown whether or not the patient has had similar symptoms in the past. It is unknown whether or not the patient has recently seen a physician. pt without other complaint. 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 - Social history:: Smoking status: Patient denies any tobacco usage or history of. ROS: 14:01 Constitutional: Negative for fever, chills, and weight loss, Eyes: Negative for injury, snw pain, redness, and discharge, ENT: Negative for injury, pain, and discharge, Neck: Negative for injury, pain, and swelling, Cardiovascular: Negative for chest pain, palpitations, and edema, Respiratory: Negative for shortness of breath, cough, wheezing, and pleuritic chest pain, Abdomen/GI: Negative for abdominal pain, nausea, vomiting, diarrhea, and constipation, Back: Negative for injury and pain, : Negative for injury, bleeding, discharge, and swelling, MS/Extremity: Negative for injury and deformity, Neuro: Negative for headache, weakness, numbness, tingling, and seizure, Psych: Negative for depression, anxiety, suicide ideation, homicidal ideation, and hallucinations. 14:01 Skin: Positive for concerned about C/S incision. Exam: 14:00 Constitutional: This is a well developed, well nourished patient who is awake, alert, snw and in no acute distress. Head/Face: Normocephalic, atraumatic. Eyes: Pupils equal round and reactive to light, extra-ocular motions intact. Lids and lashes normal. Conjunctiva and sclera are non-icteric and not injected. Cornea within normal limits. Periorbital areas with no swelling, redness, or edema. ENT: Nares patent. No nasal discharge, no septal abnormalities noted. Tympanic membranes are normal and external auditory canals are clear. Oropharynx with no redness, swelling, or masses, exudates, or evidence of obstruction, uvula midline. Mucous membranes moist. Neck: Trachea midline, no thyromegaly or masses palpated, and no cervical lymphadenopathy. Supple, full range of motion without nuchal rigidity, or vertebral point tenderness. No Meningismus. Chest/axilla: Normal chest wall appearance and motion. Nontender with no deformity. No lesions are appreciated. Cardiovascular: Regular rate and rhythm with a normal S1 and S2. No gallops, murmurs, or rubs. Normal PMI, no JVD. No pulse deficits. Respiratory: Lungs have equal breath sounds bilaterally, clear to auscultation and percussion. No rales, rhonchi or wheezes noted. No increased work of breathing, no retractions or nasal flaring. Abdomen/GI: Soft, non-tender, with normal bowel sounds. No distension or tympany. No guarding or rebound. No evidence of tenderness throughout. Back: No spinal tenderness. No costovertebral tenderness. Full range of motion. Skin: Warm, dry with normal turgor. Normal color with no rashes, no lesions, and no evidence of cellulitis. c/s incision pink, dry, no dehiscense MS/ Extremity: Pulses equal, no cyanosis. Neurovascular intact. Full, normal range of motion. Neuro: Awake and alert, GCS 15, oriented to person, place, time, and situation. Cranial nerves II-XII grossly intact. Motor strength 5/5 in all extremities. Sensory grossly intact. Cerebellar exam normal. Normal gait. Psych: Awake, alert, with orientation to person, place and time. Behavior, mood, and affect are within normal limits. Vital Signs: 13:42 BP 123 / 64; Pulse 76; Resp 16; Temp 98.7; Pulse Ox 98% ; Height 5 ft. 3 in. (160.02 ll1 cm); Pain 0/10; MDM: 13:45 Patient medically screened. snw 14:04 Differential diagnosis: cellulitis. Data reviewed: vital signs, nurses notes. Data snw interpreted: Pulse oximetry: on room air is 98 %. Interpretation: normal. Counseling: I had a detailed discussion with the patient and/or guardian regarding: the historical points, exam findings, and any diagnostic results supporting the discharge/admit diagnosis, the need for outpatient follow up, to return to the emergency department if symptoms worsen or persist or if there are any questions or concerns that arise at home. Response to treatment: There is no appreciated change of the patient's symptoms at this time. Special discussion: Based on the history and exam findings, there is no indication for further emergent testing or inpatient evaluation. I discussed with the patient/guardian the need to see the OB Gyne specialist for further evaluation of the symptoms. I discussed with the patient/guardian the need to see the primary care provider for further evaluation of the symptoms. Administered Medications: No medications were administered Disposition: 16:41 Co-signature as Attending Physician, Seth Hand DO I was immediately available on-site ms3 in the Emergency Department for consultation in the care of the patient. Disposition Summary: 11/25/22 13:59 Discharge Ordered Location: Home snw Condition: Stable snw Diagnosis - Encounter for change or removal of surgical wound dressing - wound eval snw Followup: snw - With: Emergency Department - When: As needed - Reason: Worsening of condition Followup: snw - With: Private Physician - When: 2 - 3 days - Reason: Recheck today's complaints, Continuance of care, Re-evaluation by your physician Discharge Instructions: - Discharge Summary Sheet snw - Incision Care, Adult snw Forms: - Medication Reconciliation Form snw - Thank You Letter snw - Antibiotic Education snw - Prescription Opioid Use snw Prescriptions: - Mobic 7.5 mg Oral Tablet - take 1 tablet by ORAL route once daily take with food; 20 tablet; Refills: 0, snw Product Selection Permitted Signatures: Virginia Jean FNP-C FNP-[place] Aydee Lyon RN RN ll1 Seth Hand DO DO ms3 Corrections: (The following items were deleted from the chart) 14:04 14:02 Previous treatment: The patient was initially treated on November 12, 2022, the [facility] care was rendered at [facility]
--- NOTE | 2022-11-25 14:00 | ER ---
Nurse's Notes [facility] Name: Neva Reyes Age: 22 yrs Sex: Female : 2000 Arrival Date: 11/25/2022 Time: 13:34 Bed 11 Private MD: Diagnosis: Encounter for change or removal of surgical wound dressing-wound eval Presentation: 11/25 13:42 Chief complaint: Patient states: Feels like wound might be coming apart, ll1 started today. 11/07/22. No fever. Coronavirus screen: Vaccine status: Patient reports being unvaccinated. Client denies travel out of the [place] in the last 14 days. At this time, the client does not indicate any symptoms associated with coronavirus-19. Ebola Screen: Patient denies travel to an Ebola-affected area in the 21 days before illness onset. Initial Sepsis Screen: Does the patient meet any 2 criteria? No. Patient's initial sepsis screen is negative. Does the patient have a suspected source of infection? Yes: Skin breakdown/wound. Risk Assessment: Do you want to hurt yourself or someone else? Patient reports no desire to harm self or others. Onset of symptoms was November 25, 2022. 13:42 Method Of Arrival: Ambulatory ll1 13:42 Acuity: HILDA 5 ll1 Triage Assessment: 13:44 General: Appears in no apparent distress. Behavior is calm, cooperative, appropriate ll1 for age. Pain: Denies pain. Derm: Reports worried about wound coming open. 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 - Social history:: Smoking status: Patient denies any tobacco usage or history of. Screenin:09 [facility] ED Fall Risk Assessment (Adult) History of falling in the last 3 months, ap3 including since admission No falls in past 3 months (0 pts). Abuse screen: Denies threats or abuse. Nutritional screening: No deficits noted. Tuberculosis screening: No symptoms or risk factors identified. Vital Signs: 13:42 BP 123 / 64; Pulse 76; Resp 16; Temp 98.7; Pulse Ox 98% ; Height 5 ft. 3 in. (160.02 ll1 cm); Pain 0/10; ED Course: 13:34 Patient arrived in ED. rg4 13:43 Triage completed. ll1 13:43 Arm band placed on Patient placed in an exam room, on a stretcher. ll1 13:45 [facility]-C [facility]. snw 13:45 Seth Hand DO is Attending Physician. snw 14:09 Karla Kelsey, RN is Primary Nurse. ap3 14:09 No provider procedures requiring assistance completed. Patient did not have IV access ap3 during this emergency room visit. 14:10 Patient has correct armband on for positive identification. Bed in low position. Call ap3 light in reach. Pulse ox on. NIBP on. Door closed. Noise minimized. Administered Medications: No medications were administered Medication: 14:10 VIS not applicable for this client. ap3 Outcome: 13:59 Discharge ordered by MD. snw 14:09 Discharged to home ambulatory. ap3 14:09 Condition: good 14:09 Discharge instructions given to patient, Instructed on discharge instructions, follow up and referral plans. Demonstrated understanding of instructions, follow-up care, Prescriptions given X 1. 14:11 Patient left the ED. ap3 Signatures: Virginia Jean FNP-C FNP-Steffanie Evans rg4 Karla Kelsey, RN RN ap3 Aydee Lyon RN RN ll1
[2022-11-25 14:23] VITALS: BP 123/64; TEMP 98.7; O2SAT 98
== END 2022-11-25 14:11 | disposition home or self-care (01) ==
LOC: ER 13:30
DX: Z48.01 Encounter for change or removal of surgical wound dressing (principal); Z91.013 Allergy to seafood
CPT/HCPCS: 99283

== ENCOUNTER 2022-12-10 20:54 | Emergency (ER) | payer OTHER ==
--- OUTSIDE RECORDS SUMMARY | 2022-12-10 21:11 | XMS REPORT | Continuity of Care Document ---
:2000 Author Organization [facility] t Address [address] [place] [address] [address]. [address] [place] [address] Care Team Providers Name Role Phone NATALIIA DODSON Primary Care Physician Unavailable YOLY MEI Attending Clinician Unavailable FIDENCIO COOLEY Attending Clinician Unavailable Fidencio Cooley MD Attending Clinician Ivory Nataliia DIAMOND Attending Clinician [phone] Visit, [facility] Attending Clinician Unavailable Katrin Finn Attending Clinician [phone] NATALIIA DODSON Attending Clinician Unavailable BIANKA WAHL Attending Clinician Unavailable Bianka Wahl MD Attending Clinician [phone] Steve Jimenez MD Attending Clinician JUNIOR SANCHEZ Attending Clinician Unavailable Delroy Steele Attending Clinician Junior Sanchez DO Attending Clinician ROCKY CONRAD Attending Clinician Unavailable Rocky Conrad MD Attending Clinician Jennifer Fajardo MD Attending Clinician Amber Conde MD Attending Clinician SHABANA SANCHEZ Attending Clinician Unavailable AUDREY HAYDEN Attending Clinician Unavailable Audrey Hayden MD Attending Clinician ROSAMARIA SOSA Attending Clinician Unavailable [facility], [facility] Attending Clinician Unavailable Rosamaria Sosa PA-C Attending Clinician Doctor Unassigned, [place] Attending Clinician Unavailable Yoly Mei CNM Attending Clinician Lab, [facility] Attending Clinician Unavailable Ultrasound, [place] Attending Clinician Unavailable Kathie Yap MD, [place] Attending Clinician [phone] LEOLA GRECO Attending Clinician Unavailable Leatha Michele MD Attending Clinician LEATHA MICHELE Attending Clinician Unavailable Paul CHRISTOPHER, Doug Yung Attending Clinician Sarah JAIN, Cecile Attending Clinician Unavailable Ely JAIN, eDbra Attending Clinician Unavailable Janette Thomson MD Attending Clinician JANETTE THOMSON Attending Clinician Unavailable JANETTE THOMSON Attending Clinician Unavailable BIANKA WAHL Admitting Clinician Unavailable Bianka Wahl MD Admitting Clinician [phone] ROCKY CONRAD Admitting Clinician Unavailable Rocky Conrad MD Admitting Clinician AUDREY HAYDEN Admitting Clinician Unavailable Audrey Hayden MD Admitting Clinician Payers Payer Name Policy Type Policy Number Effective Date Expiration Date Remi leigh [facility] [id number] 2022 00:00:00 [place]ICAID OF [place] [id number] 2022 00:00:00 Problems Condition Condition Condition Status Onset Resolution Last Treating Co mments Source Name Details Category Date Date Treatment Clinician Date Disease Active 2021-11 U nivers spinal spinal 2-22 ity of headache headache 00:00: [place] 00 [facility] Morbid Morbid Disease Active 2021-11 Univers obesity obesity 2-17 ity of with body with body 00:00: [facility] s mass index mass index 00 Me dical of of Branch 40.0-49.9 40.0-49.9 40 weeks 40 weeks Disease Active 2021-11 Unive rs gestation gestation 2-16 ity of of of 00:00: [place] 00 [facility] Branch Excessive Excessive Disease Active 2021-11 Uni vers weight weight 2-03 ity of gain gain 00:00: [place] affecting affecting 00 [facility] Bran ch Refused Refused Disease Active 2021-11 [...] of this [place] measuring measuring 00 note [facility] 5.89 x 5.89 x might be Branch 4.51 x 4.51 x different 5.55 cm 5.55 cm from the original. Noted on usg left side, follow up usg in 3/4 weeks scheduled Supervisio Supervisio Disease Active U nivers n of n of 4-29 ity of high-risk high-risk [place] [facility] Nausea and Nausea and Disease Active U nivers vomiting vomiting 4-29 ity of during during 00:00: [place] 00 [facility] Branch Obesity in Obesity in Disease Active U nivers 4-29 ity of 00:00: [place] 00 Medical [...] Stop Date Quantity Comments Source ASSERTION 2022-02-12 [facility] 00:00:00 [facility] Exposure to 2022-11-20 2022-11-30 Not sure [facility] SARS-CoV-2 00:00:00 22:21:00 [facility] (event) [place] Alcohol intake 2022-11-30 2022-11-30 [facility] 00:00:00 00:00:00 non-drinker [facility] (finding) [place] Tobacco use and 2022-06-07 2022-06-07 Smokeless tobacco Un iversity of exposure 00:00:00 00:00:00 non-user [facility] Sex Assigned At [birth year] [facility] 00:00:00 00:00:00 [facility] Smoking Status Start Date Stop Date Source Never smoked tobacco [facility] Medications Ordered Filled Start Stop Current Ordering Indication Dosage Frequency Signature Comments Components Source Medication Medication Date Date Medication? Clinician (SIG) Name Name jossie- 2021-11- No 1{tbl} 1 tablet, Univers acetaminoph 2-11 11- Oral, ONCE i ty of en-caff 21:00: 20:11 NOW, 1 [place] (ESGIC) 00 :00 dose, On Medical 50-325-40 Jeanie Branch mg tablet 1 11/11/22 tablet at 1500, Routine butalbital- 2021-11- No 1{tbl} 1 tablet, Univers acetaminoph 2-22 - Oral, ity of en-caff 00:15: 23:37 ONCE, 1 [place] (ESGIC) 00 :00 dose, On Medical 50-325-40 Wed Branch mg tablet 1 11/10/22 tablet at 1815, Routine cefTRIAXone 2021-11 Yes 1000mg 1,000 mg, Univers (ROCEPHIN) 2-22 Intramuscu ity of injection 00:00: lar, Q24H [place] 1,000 mg 00 ABX, First Medic al dose Branch (after last modificati on) on Tue11/10/22 at 1800, Until Discontinu ed, [place]
Re ason for Anti-Infec tive: Empiric Therapy for Suspected Infection< br>Empiric Therapy Site: Urine
D uration of therapy: 72 hours butalbital- 2021-11 Yes [id number] 1{tbl} Take 1 Univers acetaminoph 2-22 tablet by ity of en-caff 00:00: mouth [place] (ESGIC) 00 every 6 Medical 50-325-40 (six) Branch mg tablet hours. butalbital- 2021-11 Yes [id number] 1{tbl} Take 1 Univers acetaminoph 2-22 tablet by ity of en-caff 00:00: mouth [place] (ESGIC) 00 every 6 Medical 50-325-40 (six) Branch mg tablet hours. butalbital- 2021-11 Yes [id number] 1{tbl} Take 1 Univers acetaminoph 2-22 tablet by ity of en-caff 00:00: mouth [place] (ESGIC) 00 every 6 Medical 50-325-40 (six) Branch mg tablet hours. butalbital- 2021-11 Yes [id number] 1{tbl} Take 1 Univers acetaminoph 2-22 tablet by ity of en-caff 00:00: mouth [place] (ESGIC) 00 every 6 Medical 50-325-40 (six) Branch mg tablet hours. butalbital2021-11 Yes [id number] 1{tbl} Take 1 Univers acetaminoph 2-22 tablet by ity of en-caff 00:00: mouth [place] (ESGIC) 00 every 6 Medical 50-325-40 (six) Branch mg tablet hours. metoclopram 2021-11 Yes 10mg 10 mg, Univ ers max HCl 01-11 Oral, AC, ity of (REGLAN) 22:30: First dose [place] tablet 10 00 on Wed Medical mg 11/10/22 Branch at 1630, Until Discontinu ed, Routine diphenhydrA 2021-11 No 50mg 50 mg, Uni vers MINE 01-11 Oral, ity of (BENADRYL) 22:30: 22:26 ONCE, 1 [place] tablet 50 00 :00 dose, On Medica l mg Wed Branch 11/10/22 at 1630, MO cephALEXin 2021-11- Yes [id number] 500mg Take 1 Univers (KEFLEX) 01-11 capsule by ity of 500 mg 00:00: 05:59 mouth in [place] capsule 00 :00 the Medical morning Branch and 1 capsule at noon and 1 capsule in the evening. Do all this for 7 days. cephALEXin 2021-11- Yes [id number] 500mg Take 1 Univers (KEFLEX) 2-21 -29 capsule by ity of 500 mg 00:00: 05:59 mouth in [place] capsule 00 :00 the Medical morning Branch and 1 capsule at noon and 1 capsule in the evening. Do all this for 7 days. cephALEXin 2021-11- Yes [id number] 500mg Take 1 Univers (KEFLEX) 2-21 - capsule by ity of 500 mg 00:00: 05:59 mouth in [place] capsule 00 :00 the Medical morning Branch and 1 capsule at noon and 1 capsule in the evening. Do all this for 7 days. cephALEXin 2021-11- Yes [id number] 500mg Take 1 Univers (KEFLEX) 2-10 11- capsule by ity of 500 mg 00:00: 05:59 mouth in [place] capsule 00 :00 the Medical morning Branch and 1 capsule at noon and 1 capsule in the evening. Do all this for 7 days. 2021-11 Yes [id number] 1{tbl} Take 1 Univers vitamin 2-19 tablet by ity of w/FA tablet 00:00: mouth in [place] 00 the Medical morning. Branch docusate 2021-11 Yes [id number] 200mg Take 2 U nivers 100 mg 2-19 capsules ity of capsule 00:00: by mouth [place] 00 once daily Medical as needed Branch for Constipati on. ferrous 2021-11 Yes [id number] 325mg Take 1 Un loli sulfate 325 2-19 tablet by ity of mg (65 mg 00:00: mouth [place] iron[place] 00 the Medical tablet morning Branch and 1 tablet in the evening. ibuprofen 2021-11 Yes [id number] 600mg Take 1 Univers 600 mg 2-19 tablet by ity of tablet 00:00: mouth [place] 00 every 6 Medical (six) Branch hours as needed (Pain). Take with food or milk. 2021-11 Yes [id number] 1{tbl} Take 1 Univers vitamin 2-19 tablet by ity of w/FA tablet 00:00: mouth in [place] 00 the Medical morning. Branch docusate 2021-11 Yes [id number] 200mg Take 2 U nivers 100 mg 2-19 capsules ity of capsule 00:00: by mouth [place] 00 once daily Medical as needed Branch for Constipati on. ferrous 2021-11 Yes [id number] 325mg Take 1 Un loli sulfate 325 2-19 tablet by ity of mg (65 mg 00:00: mouth [place] iron[place] 00 the Medical tablet morning Branch and 1 tablet in the evening. ibuprofen 2021-11 Yes [id number] 600mg Take 1 Univers 600 mg 2-19 tablet by ity of tablet 00:00: mouth [place] 00 every 6 Medical (six) Branch hours as needed (Pain). Take with food or milk. 2021-11 Yes [id number] 1{tbl} Take 1 Univers vitamin 2-19 tablet by ity of w/FA tablet 00:00: mouth in [place] 00 the Medical morning. Branch docusate 2021-11 Yes [id number] 200mg Take 2 U nivers 100 mg 2-19 capsules ity of capsule 00:00: by mouth [place] 00 once daily Medical as needed Branch for Constipati on. ferrous 2021-11 Yes [id number] 325mg Take 1 Un loli sulfate 325 2-19 tablet by ity of mg (65 mg 00:00: mouth [place] iron[place] 00 the Medical tablet morning Branch and 1 tablet in the evening. ibuprofen 2021-11 Yes [id number] 600mg Take 1 Univers 600 mg 2-19 tablet by ity of tablet 00:00: mouth [place] 00 every 6 Medical (six) Branch hours as needed (Pain). Take with food or milk. 2021-11 Yes [id number] 1{tbl} Take 1 Univers vitamin 2-19 tablet by ity of w/FA tablet 00:00: mouth in [place] 00 the Medical morning. Branch docusate 2021-11 Yes [id number] 200mg Take 2 U nivers 100 mg 2-19 capsules ity of capsule 00:00: by mouth [place] 00 once daily Medical as needed Branch for Constipati on. ferrous 2021-11 Yes [id number] 325mg Take 1 Un loli sulfate 325 2-19 tablet by ity of mg (65 mg 00:00: mouth [place] iron) 00 the Medical tablet morning Branch and 1 tablet in the evening. ibuprofen 2021-11 Yes [id number] 600mg Take 1 Univers 600 mg 2-19 tablet by ity of tablet 00:00: mouth [place] 00 every 6 Medical (six) Branch hours as needed (Pain). Take with food or milk. 2021-11 Yes [id number] 1{tbl} Take 1 Univers vitamin 2-19 tablet by ity of w/FA tablet 00:00: mouth in [place] 00 the Medical morning. Branch docusate 2021-11 Yes [id number] 200mg Take 2 U nivers 100 mg 2-19 capsules ity of capsule 00:00: by mouth [place] 00 once daily Medical as needed Branch for Constipati on. ferrous 2021-11 Yes [id number] 325mg Take 1 Un loli sulfate 325 2-19 tablet by ity of mg (65 mg 00:00: mouth [place] iron[place] 00 the Medical tablet morning Branch and 1 tablet in the evening. ibuprofen 2021-11 Yes [id number] 600mg Take 1 Univers 600 mg 2-19 tablet by ity of tablet 00:00: mouth [place] 00 every 6 Medical (six) Branch hours as needed (Pain). Take with food or milk. 2021-11 Yes [id number] 1{tbl} Take 1 Univers vitamin 2-19 tablet by ity of w/FA tablet 00:00: mouth in [place] 00 the Medical morning. Branch docusate 2021-11 Yes [id number] 200mg Take 2 U nivers 100 mg 2-19 capsules ity of capsule 00:00: by mouth [place] 00 once daily Medical as needed Branch for Constipati on. ferrous 2021-11 Yes [id number] 325mg Take 1 Un loli sulfate 325 2-19 tablet by ity of mg (65 mg 00:00: mouth [place] iron[place] 00 the Medical tablet morning Branch and 1 tablet in the evening. ibuprofen 2021-11 Yes [id number] 600mg Take 1 Univers 600 mg 2-19 tablet by ity of tablet 00:00: mouth [place] 00 every 6 Medical (six) Branch hours as needed (Pain). Take with food or milk. 2021-11 Yes [id number] 1{tbl} Take 1 Univers vitamin 2-19 tablet by ity of w/FA tablet 00:00: mouth in [place] 00 the Medical morning. Branch docusate 2021-11 Yes [id number] 200mg Take 2 U nivers 100 mg 2-19 capsules ity of capsule 00:00: by mouth [place] 00 once daily Medical as needed Branch for Constipati on. ferrous 2021-11 Yes [id number] 325mg Take 1 Un loli sulfate 325 2-19 tablet by ity of mg (65 mg 00:00: mouth [place] iron) 00 the Medical tablet morning Branch and 1 tablet in the evening. ibuprofen 2021-11 Yes [id number] 600mg Take 1 Univers 600 mg 2-19 tablet by ity of tablet 00:00: mouth [place] 00 every 6 Medical (six) Branch hours as needed (Pain). Take with food or milk. 2021-11 Yes [id number] 1{tbl} Take 1 Univers vitamin 2-19 tablet by ity of w/FA tablet 00:00: mouth in [place] 00 the Medical morning. Branch docusate 2021-11 Yes [id number] 200mg Take 2 U nivers 100 mg 2-19 capsules ity of capsule 00:00: by mouth [place] 00 once daily Medical as needed Branch for Constipati on. ferrous 2021-11 Yes [id number] 325mg Take 1 Un loli sulfate 325 2-19 tablet by ity of mg (65 mg 00:00: mouth [place] iron[place] 00 the Medical tablet morning Branch and 1 tablet in the evening. ibuprofen 2021-11 Yes [id number] 600mg Take 1 Univers 600 mg 2-19 [...] IV Push, ity of (PF)) 10:46: Q8HPRN, [place] injection 4 11 Starting Medi natalie mg [...] 11 Starting Medi natalie tablet 1 on [place] tablet 11/07/22 at 0446, Until Discontinu [...] 25 11 Starting Medica l mg on [facility] 11/07/22 at 0446, Until Discontinu ed, Routine, Sleep, Itching ondansetron 2021-11 Yes 4mg 4 mg, Slow Univers (ZOFRAN 2-18 IV Push, ity of (PF)) 10:46: Q8HPRN, [place] injection 4 11 Starting Medi natalie mg on [place] 11/07/22 at 0446, Until Discontinu ed, Routine, Nausea and Vomiting (N/V) bisacodyL 2021-11 Yes 10mg 10 mg, Univer s (DULCOLAX) 2-18 Rectal, ity of suppository 10:46: QDAILYPRN, [place] 10 mg 11 Starting Medical on [place] 11/07/22 at 0446, Until Discontinu ed, Routine, Constipati on simethicone 2021-11 Yes 160mg 160 mg, Un loli (GAS RELIEF 2-18 Oral, ity of (SIMETHICON 10:46: PC+HSPRN, [place] E)) 11 Starting Medical chewable on [facility] tablet 160 11/07/22 mg at 0446, Until Discontinu ed, Routine, Gas docusate 2021-11 Yes 200mg 200 mg, Unive rs (COLACE) 2-18 Oral, ity of capsule 200 10:46: QDAILYPRN, [place] mg 11 Starting Medical on [place] 11/07/22 at 0446, Until Discontinu ed, Routine, Constipati on magnesium 2021-11 Yes 30mL 30 mL, Univer s hydroxide 2-18 Oral, ity of (MILK OF 10:46: QDAILYPRN, [place] MAGNESIA) 11 Starting Medica l 400 mg/5 mL on [facility] suspension 11/07/22 30 mL at 0446, Until Discontinu ed, Routine, Constipati on lactated 2021-11 Yes 1000mL at 125 Unive rs ringers IV 2-18 mL/hr, ity of infusion 10:46: 1,000 mL, [place] 1,000 mL 11 IV Medical Infusion, Branch PRN, 1 dose, Starting on Tue11/07/22 at 0446, Until Discontinu ed, Routine nalbuphine 2021-11 Yes 5mg 5 mg, Univer s (NUBAIN) 2 Intravenou ity o f injection 5 08:32: s, PRN, 1 [place] mg 34 dose, Medical Starting Branch on Tue11/07/22 at 0232, Until Discontinu ed, Routine, itching, PACU nalbuphine 2021-11 Yes 5mg 5 mg, Univer s (NUBAIN) 2 Intravenou ity o f injection 5 08:32: [...] PACU methylergon 2021-11 Yes Intramuscu Univers ovine 01-08 lar, ONCE ity of (METHERGINE 07:22: INTRA [...] No 1{tbl} 1 tablet, Univers -acetaminop 2-18 12-18 Oral, ity of hen (NORCO) 06:34: 09:55 Q6HPRN, 1 [place] 10-325 mg 40 :00 dose, Medical tablet 1 Starting Branch tablet on 11/07/22 at 0034, Until Discontinu ed, Routine, Pain (scale 7-10) HYDROcodone 2021-11 1{tbl} 1 tablet, Univers -acetaminop 18 1218 Oral, ity of hen (NORCO 06:34: 18:52 Q6HPRN, 1 [place] 5) 5-325 mg 39 :00 dose, Medical tablet 1 Starting Branch tablet on 11/07/22 at 0034, Until Discontinu ed, Routine, Pain (scale 4-6) ibuprofen 2021-11 Yes 600mg 600 mg, Univ ers (IBU) 2-18 Oral, ity of tablet 600 06:34: Q6HPRN, [place] mg 38 Starting Medical on [facility] 11/07/22 at 0034, Until Discontinu ed, Routine, Pain (scale 1-3) ibuprofen 2021-11 Yes 600mg 600 mg, Univ ers (IBU) 2-18 Oral, ity of tablet 600 06:34: Q6HPRN, [place] mg 38 Starting Medical on [facility] 11/07/22 at 0034, Until Discontinu ed, Routine, Pain (scale 1-3) oxytocin 2021-11 Yes 600mL/h 600 mL/hr, Univers (PITOCIN) 2-18 IV ity of 30 units in 06:34: Infusion, [place] NS 500 mL 25 PRN, For Medica l IV infusion post Branch delivery uterine atony., Starting on [place] 11/07/[address] art at 600 [...] 2021-11 Yes 300mL/h 300 mL/hr, Univers (PITOCIN) 218 IV ity of 30 units in 06:34: Infusion, [place] NS 500 mL 25 SEE-INSTRU Medi natalie IV infusion CTIONS, Branc h Starting on 11/07/[address] art at 300 mL/hr for 1 hr then 150 mL/hr for 1 hr. & nbsp; For post delivery uterotonic
azithromyci 2021-11 Yes 500mg 500 mg, IV Univers n 01-08 Piggyback, ity of (ZITHROMAX) 06:02: 06:01 O.R. [place] 500 mg in 05 :05 HOLDING Medical NaCl 0.9% ONCE, Branch (NS) 250 mL Starting VIAL-MATE on Sun IV 11/07/22 piggyback at 0002, Until 11/08/22 at 0001, Administer over 60 Minutes, 250 mL
Reas on for Anti-Infec tive: Surgical Prophylaxi s
Marie rgical Prophylaxi s: PLASTIC JIG AND FIXTURE BUILDER
Duration of therapy: within 24 hours of surgery
Reason for Anti-Infec tive: Documented Infection< br>Documen steven Infection Site: Pelvic
Duration of Therapy: 7 days ceFAZolin 2021-11 Yes 2000mg 2 g (2,000 Univers in 0.9% 01-08 mg), IV ity of sodium 06:01: 06:00 [place]back, [place] chloride 51 :51 O.R. Medical (ANCEF) 2 HOLDING Branch gram/100 mL ONCE, RTU 2 g Starting on 11/07/22 at 0001, Until 11/08/22 at 0000, Administer over 30 Minutes, 100 mL
Reas on for Anti-Infec tive: Surgical Prophylaxi s
Surgi natalie Prophylaxi s: PLASTIC JIG AND FIXTURE BUILDER
Duration of therapy: within 24 hours of [...] No 10mg 10 mg, Uni vers (ATARAX) 2-17 12-17 Oral, ity of tablet 10 21:30: 20:39 ONCE, 1 [place] mg 00 :00 dose, On Medical Sat Branch 11/06/22 at 1530, Routine FENTanyl PF 2021-11- No 50ug 50 mcg, Un loli (SUBLIMAZE -06 11- Slow IV ity o f (PF)) 21:30: 21:21 Push, [place] injection 00 :00 ONCE, 1 Medical 50 mcg dose, On Branch 11/06/22 at 1530, Routine PIB 2021-11 Yes Epidural, Univers ropivacaine 2-17 CONTINUOUS it y of 0.2 % 05:35: PRN, [place] (NAROPIN 00 Starting Medical (PF)) on Tue Branch epidural 11/05/22 infusion at 2335, Until Discontinu ed, Routine, Intra-op lidocaine-e 2021-11 Yes Intravenou Univers pinephrine 2-17 s, ONCE ity of (XYLOCAINE 05:30: INTRA [place] W/EPINEPHRI 00 PROCEDURE, Id dical NE) 2 Starting Branch %-1:200,000 on [...] Branch mg/5 mL Starting solution 30 on 11/05/22 at 2158, Until Discontinu ed, Routine, [...] 1 [place] mg 00 :00 dose, On Medical Fri [place] 11/05/22 at 1815, Routine butorphanol 2021-11- No 1mg 1 mg, Univ ers (STADOL) 01-06 Intravenou ity of injection 1 17:45: 16:46 s, ONCE, 1 [place] mg 00 :00 dose, On Medical Fri Branch 11/05/22 at 1145, Routine lidocaine 2021-11 [...] mL 23 Infusion, Medical PRN - SEE Renato INSTRUCTELLYN NS, Starting on Tue11/05/22 at 0854, Until Discontinu ed, Routine D5W-LR IV 2021-11 Yes 1000mL at 1-125 Un loli infusion 2-16 mL/hr, IV ity of 1,000 mL 14:54: Infusion, [place] 23 TITRATE, Medical Starting Branch on Tue11/05/22 at 0854, Until Discontinu ed, Routine sodium 2021-11 No 30mL 30 mL, Univers citrate-cit 2-16 12-17 Oral, ity of [place] acid 14:54: 04:15 PRE-PROCED [place] (BICITRA) 23 :00 URE ONCE, Medic al 500-334 1 dose, Branch mg/5 mL Starting solution 30 on Tue mL 11/05/22 at 0854, Until Discontinu ed, Routine, Surgery/Pr ocedure tolnaftate 2021-11 Yes [id number] Apply to Univers (TINACTIN) 1-11 area(s) 2 ity of 1 % cream 00:00: (two) [place] 00 times Medical daily. Branch Until rash clears plus 2 more weeks tolnaftate 2021-11 Yes [id number] Apply to Univers (TINACTIN) 1-11 area(s) 2 ity of 1 % cream 00:00: (two) [place] 00 times Medical daily. Branch Until rash clears plus 2 more weeks tolnaftate 2021-11 Yes [id number] Apply to Univers (TINACTIN) 1-11 area(s) 2 ity of 1 % cream 00:00: (two) [place] 00 times Medical daily. Branch Until rash clears plus 2 more weeks tolnaftate 2021-11 Yes [id number] Apply to Univers (TINACTIN) 1-11 area(s) 2 ity of 1 % cream 00:00: (two) [place] 00 times Medical daily. Branch Until rash clears plus 2 more weeks tolnaftate 2021-11 Yes [id number] Apply to Univers (TINACTIN) 1-11 area(s) 2 ity of 1 % cream 00:00: (two) [place] 00 times Medical daily. Branch Until rash clears plus 2 more weeks tolnaftate 2021-11 Yes [id number] Apply to Univers (TINACTIN) 1-11 area(s) 2 ity of 1 % cream 00:00: (two) [place] 00 times Medical daily. Branch Until rash clears plus 2 more weeks tolnaftate 2021-11 Yes [id number] Apply to Univers (TINACTIN) 1-11 area(s) 2 ity of 1 % cream 00:00: (two) [place] 00 times Medical daily. Branch Until rash clears plus 2 more weeks tolnaftate 2021-11 Yes [id number] Apply to Univers (TINACTIN) 1-11 area(s) 2 ity of 1 % cream 00:00: (two) [place] 00 times Medical daily. Branch Until rash clears plus 2 more weeks tolnaftate 2021-11 Yes [id number] Apply to Univers (TINACTIN) 1-11 area(s) 2 ity of 1 % cream 00:00: (two) [place] 00 times Medical daily. Branch Until rash clears plus 2 more weeks tolnaftate 2021-11 Yes [id number] Apply to Univers (TINACTIN) 1-11 area(s) 2 ity of 1 % cream 00:00: (two) [place] 00 times Medical daily. Branch Until rash clears plus 2 more weeks tolnaftate 2021-11 Yes [id number] Apply to Univers (TINACTIN) 1-11 area(s) 2 ity of 1 % cream 00:00: (two) [place] 00 times Medical daily. Branch Until rash clears plus 2 more weeks tolnaftate 2021-11 Yes [id number] Apply to Univers (TINACTIN) 1-11 area(s) 2 ity of 1 % cream 00:00: (two) [place] 00 times Medical daily. Branch Until rash clears plus 2 more weeks tolnaftate 2021-11 Yes [id number] Apply to Univers (TINACTIN) 1-11 area(s) 2 ity of 1 % cream 00:00: (two) [place] 00 times Medical daily. Branch Until rash clears plus 2 more weeks tolnaftate 2021-11 Yes [id number] Apply to Univers (TINACTIN) 1-11 area(s) 2 ity of 1 % cream 00:00: (two) [place] 00 times Medical daily. Branch Until rash clears plus 2 more weeks tolnaftate 2021-11 Yes [id number] Apply to Univers (TINACTIN) 1-11 area(s) 2 ity of 1 % cream 00:00: (two) [place] 00 times Medical daily. Branch Until rash clears plus 2 more weeks tolnaftate 2021-11 Yes [id number] Apply to Univers (TINACTIN) 1-11 area(s) 2 ity of 1 % cream 00:00: (two) [place] 00 times Medical daily. Branch Until rash clears plus 2 more weeks tolnaftate 2021-11 Yes [id number] Apply to Univers (TINACTIN) 1-11 area(s) 2 ity of 1 % cream 00:00: (two) [place] 00 times Medical daily. Branch Until rash clears plus 2 more weeks tolnaftate 2021-11 Yes [id number] Apply to Univers (TINACTIN) 1-11 area(s) 2 ity of 1 % cream 00:00: (two) [place] 00 times Medical daily. Branch Until rash clears plus 2 more weeks tolnaftate 2021-11 Yes [id number] Apply to Univers (TINACTIN) 1-11 area(s) 2 ity of 1 % cream 00:00: (two) [place] 00 times Medical daily. Branch Until rash clears plus 2 more weeks ascorbic 2021-0 Yes [id number] 500mg Take 1 U nivers acid, 9-16 tablet by ity of vitamin C, 00:00: mouth in [place] 500 mg 00 the Medical tablet morning Branch and 1 tablet at noon and 1 tablet in the evening. ferrous 0 Yes [id number] 325mg Take 1 Un l[facility] sulfate 325 9-16 tablet by ity of mg (65 mg 00:00: mouth [place] iron) 00 the Medical tablet morning Branch and 1 tablet in the evening. ascorbic 2021-0 Yes [id number] 500mg Take 1 U nivers acid, 9-16 tablet by ity of vitamin C, 00:00: mouth in [place] 500 mg 00 the Medical tablet morning Branch and 1 tablet at noon and 1 tablet in the evening. ferrous 0 Yes [id number] 325mg Take 1 Un l[place] sulfate 325 9-16 tablet by ity of mg (65 mg 00:00: mouth [place] iron[place] 00 the Medical tablet morning Branch and 1 tablet in the evening. ascorbic 2021-0 Yes [id number] 500mg Take 1 U nivers acid, 9-16 tablet by ity of vitamin C, 00:00: mouth in [place] 500 mg 00 the Medical tablet morning Branch and 1 tablet at noon and 1 tablet in the evening. ferrous 2021-0 Yes [id number] 325mg Take 1 Un l[place] sulfate 325 9-16 tablet by ity of mg (65 mg 00:00: mouth [place] iron) 00 the Medical tablet morning Branch and 1 tablet in the evening. ascorbic 2021-0 Yes [id number] 500mg Take 1 U nivers acid, 9-16 tablet by ity of vitamin C, 00:00: mouth [place] 500 mg 00 the Medical tablet morning Branch and 1 tablet at noon and 1 tablet in the evening. ferrous 2021-0 Yes [id number] 325mg Take 1 Un loli sulfate 325 9-16 tablet by [facility] mg (65 mg [place]: [place] 00 the [facility] tablet morning Branch and 1 tablet in the evening. ascorbic 0 Yes [id number] 500mg Take 1 U nivers acid, 9-16 tablet by ity of vitamin C, 00:00: mouth [place] 500 mg 00 the Medical tablet morning Branch and 1 tablet at noon and 1 tablet in the evening. ferrous 2021-0 Yes [id number] 325mg Take 1 Un loli sulfate 325 9-16 tablet by [facility] mg (65 mg 00:[place]: [place] 00 the Medical tablet morning Branch and 1 tablet in the evening. ascorbic 2021-0 Yes [id number] 500mg Take 1 U nivers acid, 9-16 tablet by ity of vitamin C, 00:00: mouth [place] 500 mg 00 the Medical tablet morning Branch and 1 tablet at noon and 1 tablet in the evening. ferrous 2021-0 Yes [id number] 325mg Take 1 Un loli sulfate 325 9-16 tablet by [facility] mg (65 mg 00:00: [place] 00 the Medical tablet morning Branch and 1 tablet in the evening. ascorbic 2022-0 Yes [id number] 500mg Take 1 U nivers acid, 9-16 tablet by ity of vitamin C, 00:00: mouth [place] 500 mg 00 the Medical tablet morning Branch and 1 tablet at noon and 1 tablet in the evening. ferrous 2021-0 Yes [id number] 325mg Take 1 Un loli sulfate 325 9-16 tablet by [facility] mg (65 mg 00:00: [place] 00 the Medical tablet morning Branch and 1 tablet in the evening. ascorbic 2021-0 Yes [id number] 500mg Take 1 U nivers acid, 9-16 tablet by ity of vitamin C, 00:00: mouth [place] 500 mg 00 the Medical tablet morning Branch and 1 tablet at noon and 1 tablet in the evening. ferrous 0 Yes [id number] 325mg Take 1 Un loli sulfate 325 9-16 tablet by [facility] mg (65 mg 00:00: [place] 00 the Medical tablet morning Branch and 1 tablet in the evening. ascorbic 2021-0 Yes [id number] 500mg Take 1 U nivers acid, 9-16 tablet by ity of vitamin C, 00:00: mouth [place] 500 mg 00 the Medical tablet morning Branch and 1 tablet at noon and 1 tablet in the evening. ferrous 2021-0 Yes [id number] 325mg Take 1 Un loli sulfate 325 9-16 tablet by [facility] mg (65 mg 00:00: [place] 00 the Medical tablet morning Branch and 1 tablet in the evening. ascorbic 2021-0 Yes [id number] 500mg Take 1 U nivers acid, 9-16 tablet by ity of vitamin C, 00:00: mouth [place] 500 mg 00 the Medical tablet morning Branch and 1 tablet at noon and 1 tablet in the evening. ferrous 2021-0 Yes [id number] 325mg Take 1 Un loli sulfate 325 9-16 tablet by [facility] mg (65 mg 00:00: [place] 00 the Medical tablet morning Branch and 1 tablet in the evening. ascorbic 2021-0 Yes [id number] 500mg Take 1 U nivers acid, 9-16 tablet by ity of vitamin C, 00:00: mouth [place] 500 mg 00 the Medical tablet morning Branch and 1 tablet at noon and 1 tablet in the evening. ferrous 2021-0 Yes [id number] 325mg Take 1 Un loli sulfate 325 9-16 tablet by [facility] mg (65 mg 00:00: [place] 00 the Medical tablet morning Branch and 1 tablet in the evening. ascorbic 2021-0 Yes [id number] 500mg Take 1 U nivers acid, 9-16 tablet by ity of vitamin C, 00:00: mouth [place] 500 mg 00 the Medical tablet morning Branch and 1 tablet at noon and 1 tablet in the evening. ferrous 2021-0 Yes [id number] 325mg Take 1 Un loli sulfate 325 9-16 tablet by [facility] of mg (65 mg 00:00: [place] 00 the Medical tablet morning Branch and 1 tablet in the evening. ascorbic 0 Yes [id number] 500mg Take 1 U nivers acid, 9-16 tablet by ity of vitamin C, 00:00: mouth [place] 500 mg 00 the Medical tablet morning Branch and 1 tablet at noon and 1 tablet in the evening. ferrous 0 Yes [id number] 325mg Take 1 Un loli sulfate 325 9-16 tablet by [facility] of mg (65 mg 00:00: mouth [place] 00 the Medical tablet morning Branch and 1 tablet in the evening. ascorbic 0 Yes [id number] 500mg Take 1 U nivers acid, 9-16 tablet by ity of vitamin C, 00:00: mouth [place] 500 mg 00 the Medical tablet morning Branch and 1 tablet at noon and 1 tablet in the evening. ferrous 0 Yes [id number] 325mg Take 1 Un loli sulfate 325 9-16 tablet by [facility] of mg (65 mg 00:00: mouth [place] 00 the Medical tablet morning Branch and 1 tablet in the evening. ascorbic 0 Yes [id number] 500mg Take 1 U nivers acid, 9-16 tablet by ity of vitamin C, 00:00: mouth [place] 500 mg 00 the Medical tablet morning Branch and 1 tablet at noon and 1 tablet in the evening. ferrous 0 Yes [id number] 325mg Take 1 Un loli sulfate 325 9-16 tablet by [facility] of mg (65 mg 00:00: mouth [place] 00 the Medical tablet morning Branch and 1 tablet in the evening. ascorbic 2022-0 Yes [id number] 500mg Take 1 U nivers acid, 9-16 tablet by ity of vitamin C, 00:00: mouth [place] 500 mg 00 the Medical tablet morning Branch and 1 tablet at noon and 1 tablet in the evening. ferrous 2021-0 Yes [id number] 325mg Take 1 Un loli sulfate 325 9-16 tablet by [facility] of mg (65 mg 00:00: mouth [place] 00 the Medical tablet morning Branch and 1 tablet in the evening. ascorbic 0 Yes [id number] 500mg Take 1 U nivers acid, 9-16 tablet by ity of vitamin C, 00:00: mouth [place] 500 mg 00 the Medical tablet morning Branch and 1 tablet at noon and 1 tablet in the evening. ferrous 2021-0 Yes [id number] 325mg Take 1 Un loli sulfate 325 9-16 tablet by [facility] of mg (65 mg 00:00: mouth [place] 00 the Medical tablet morning Branch and 1 tablet in the evening. ascorbic 0 Yes [id number] 500mg Take 1 U nivers acid, 9-16 tablet by ity of vitamin C, 00:00: mouth [place] 500 mg 00 the Medical tablet morning Branch and 1 tablet at noon and 1 tablet in the evening. ferrous 2021-0 Yes [id number] 325mg Take 1 Un loli sulfate 325 9-16 tablet by [facility] mg (65 mg 00:00: [place] 00 the Medical tablet morning Branch and 1 tablet in the evening. ascorbic 2021-0 Yes [id number] 500mg Take 1 U nivers acid, 9-16 tablet by ity of vitamin C, 00:00: mouth [place] 500 mg 00 the Medical tablet morning Branch and 1 tablet at noon and 1 tablet in the evening. ferrous 2021-0 Yes [id number] 325mg Take 1 Un loli sulfate 325 9-16 tablet by [facility] mg (65 mg 00:00: [place] 00 the Medical tablet morning Branch and 1 tablet in the evening. ascorbic 2021-0 Yes [id number] 500mg Take 1 U nivers acid, 9-16 tablet by ity of vitamin C, 00:00: mouth [place] 500 mg 00 the Medical tablet morning Branch and 1 tablet at noon and 1 tablet in the evening. ferrous 2021-0 Yes [id number] 325mg Take 1 Un loli sulfate 325 9-16 tablet by [facility] mg (65 mg 00:00: mouth [place] 00 the Medical tablet morning Branch and 1 tablet in the evening. ascorbic 2021-0 Yes [id number] 500mg Take 1 U nivers acid, 9-16 tablet by ity of vitamin C, 00:00: mouth [place] 500 mg 00 the Medical tablet morning Branch and 1 tablet at noon and 1 tablet in the evening. ferrous 2021-0 Yes [id number] 325mg Take 1 Un loli sulfate 325 9-16 tablet by [facility] mg (65 mg 00:00: mouth [place] 00 the Medical tablet morning Branch and 1 tablet in the evening. ascorbic 2021-0 Yes [id number] 500mg Take 1 U nivers acid, 9-16 tablet by ity of vitamin C, 00:00: mouth [place] 500 mg 00 the Medical tablet morning Branch and 1 tablet at noon and 1 tablet in the evening. ferrous 2021-0 Yes [id number] 325mg Take 1 Un loli sulfate 325 9-16 tablet by [facility] of mg (65 mg 00:00: mouth [place] 00 the Medical tablet morning Branch and 1 tablet in the evening. ascorbic 0 Yes [id number] 500mg Take 1 U nivers acid, 9-16 tablet by ity of vitamin C, 00:00: mouth [place] 500 mg 00 the Medical tablet morning Branch and 1 tablet at noon and 1 tablet in the evening. ferrous 2021-0 Yes [id number] 325mg Take 1 Un loli sulfate 325 9-16 tablet by [facility] mg (65 mg 00:00: mouth [place] 00 the Medical tablet morning Branch and 1 tablet in the evening. ascorbic 2021-0 Yes [id number] 500mg Take 1 U nivers acid, 9-16 tablet by ity of vitamin C, 00:00: mouth [place] 500 mg 00 the Medical tablet morning Branch and 1 tablet at noon and 1 tablet in the evening. ferrous 2021-0 Yes [id number] 325mg Take 1 Un loli sulfate 325 9-16 tablet by [facility] of mg (65 mg 00:00: mouth [place] iron[place] 00 the Medical tablet morning Branch and 1 tablet in the evening. ascorbic 2-0 Yes [id number] 500mg Take 1 U nivers acid, 9-16 tablet by ity of vitamin C, 00:00: mouth [place] 500 mg 00 the Medical tablet morning Branch and 1 tablet at noon and 1 tablet in the evening. ferrous 2021-0 Yes [id number] 325mg Take 1 Un loli sulfate 325 9-16 tablet by [facility] of mg (65 mg 00:00: mouth [place] iron[place] 00 the Medical tablet morning Branch and 1 tablet in the evening. proMETHazin 2021-0 Yes [id number] 25mg Take 1 [facility] e 25 mg 4-29 tablet by ity of tablet 00:00: mouth [place] 00 every 6 Medical (six) Branch hours as needed for Nausea and Vomiting (N/V). PNV 67-iron 2021-0 Yes [id number] 1{each} Take 1 Univers ps-folate 4-29 Each by ity of no.1-dha 00:00: mouth [place] (VITAFOL 00 daily. Medical ULTRA) 29 Branch mg iron- 1 mg-200 mg Cap proMETHazin 2021-0 Yes [id number] 25mg Take 1 [facility] e 25 mg 4-29 tablet by ity of tablet 00:00: mouth [place] 00 every 6 Medical (six) Branch hours as needed for Nausea and Vomiting (N/V). PNV 67-iron 2021-0 Yes [id number] 1{each} Take 1 Univers ps-folate 4-29 Each by ity of no.1-dha 00:00: mouth [place] (VITAFOL 00 daily. Medical ULTRA) 29 Branch mg iron- 1 mg-200 mg Cap proMETHazin 2021-0 Yes [id number] 25mg Take 1 [facility] e 25 mg 4-29 tablet by ity of tablet 00:00: mouth [place] 00 every 6 Medical (six) Branch hours as needed for Nausea and Vomiting (N/V). PNV 67-iron 2021-0 Yes [id number] 1{each} Take 1 Univers ps-folate 4-29 Each by ity of no.1-dha 00:00: mouth [place] (VITAFOL 00 daily. Medical ULTRA) 29 Branch mg iron- 1 mg-200 mg Cap proMETHazin 2-0 Yes [id number] 25mg Take 1 [facility] e 25 mg 4-29 tablet by ity of tablet 00:00: mouth [place] 00 every 6 Medical (six) Branch hours as needed for Nausea and Vomiting (N/V). PNV 67-iron 2022-0 Yes [id number] 1{each} Take 1 [facility] ps-folate 4-29 Each by ity of no.1-dha 00:00: mouth [place] (VITAFOL 00 daily. Medical ULTRA) 29 Branch mg iron- 1 mg-200 mg Cap proMETHazin 2022-0 Yes [id number] 25mg Take 1 [facility] e 25 mg 4-29 tablet by ity of tablet 00:00: mouth [place] 00 every 6 Medical (six) Branch hours as needed for Nausea and Vomiting (N/V). PNV 67-iron 2022-0 Yes [id number] 1{each} Take 1 [facility] ps-folate 4-29 Each by ity of no.1-dha 00:00: mouth [place] (VITAFOL 00 daily. Medical ULTRA) 29 Branch mg iron- 1 mg-200 mg Cap proMETHazin 2022-0 Yes [id number] 25mg Take 1 [facility] e 25 mg 4-29 tablet by ity of tablet 00:00: mouth [place] 00 every 6 Medical (six) Branch hours as needed for Nausea and Vomiting (N/V). PNV 67-iron 2022-0 Yes [id number] 1{each} Take 1 [facility] ps-folate 4-29 Each by ity of no.1-dha 00:00: mouth [place] (VITAFOL 00 daily. Medical ULTRA) 29 Branch mg iron- 1 mg-200 mg Cap proMETHazin 2022-0 Yes [id number] 25mg Take 1 [facility] e 25 mg 4-29 tablet by ity of tablet 00:00: mouth [place] 00 every 6 Medical (six) Branch hours as needed for Nausea and Vomiting (N/V). PNV 67-iron 2022-0 Yes [id number] 1{each} Take 1 Univers ps-folate 4-29 Each by ity of no.1-dha 00:00: mouth [place] (VITAFOL 00 daily. Medical ULTRA) 29 Branch mg iron- 1 mg-200 mg Cap proMETHazin 2022-0 Yes [id number] 25mg Take 1 [facility] e 25 mg 4-29 tablet by ity of tablet 00:00: mouth [place] 00 every 6 Medical (six) Branch hours as needed for Nausea and Vomiting (N/V). PNV 67-iron 2022-0 Yes [id number] 1{each} Take 1 Univers ps-folate 4-29 Each by ity of no.1-dha 00:00: mouth [place] (VITAFOL 00 daily. Medical ULTRA) 29 Branch mg iron- 1 mg-200 mg Cap proMETHazin 2-0 Yes [id number] 25mg Take 1 [facility] e 25 mg 4-29 tablet by ity of tablet 00:00: mouth [place] 00 every 6 Medical (six) Branch hours as needed for Nausea and Vomiting (N/V). PNV 67-iron 2022-0 Yes [id number] 1{each} Take 1 Univers ps-folate 4-29 Each by ity of no.1-dha 00:00: mouth [place] (VITAFOL 00 daily. Medical ULTRA) 29 Branch mg iron- 1 mg-200 mg Cap proMETHazin 2-0 Yes [id number] 25mg Take 1 [facility] e 25 mg 4-29 tablet by ity of tablet 00:00: mouth [place] 00 every 6 Medical (six) Branch hours as needed for Nausea and Vomiting (N/V). PNV 67-iron 2022-0 Yes [id number] 1{each} Take 1 Univers ps-folate 4-29 Each by ity of no.1-dha 00:00: mouth [place] (VITAFOL 00 daily. Medical ULTRA) 29 Branch mg iron- 1 mg-200 mg Cap proMETHazin 2-0 Yes [id number] 25mg Take 1 [facility] e 25 mg 4-29 tablet by ity of tablet 00:00: mouth [place] 00 every 6 Medical (six) Branch hours as needed for Nausea and Vomiting (N/V). PNV 67-iron 2022-0 Yes [id number] 1{each} Take 1 Univers ps-folate 4-29 Each by ity of no.1-dha 00:00: mouth [place] (VITAFOL 00 daily. Medical ULTRA) 29 Branch mg iron- 1 mg-200 mg Cap proMETHazin 2022-0 Yes [id number] 25mg Take 1 Univers e 25 mg 4-29 tablet by ity of tablet 00:00: mouth [place] 00 every 6 Medical (six) Branch hours as needed for Nausea and Vomiting (N/V). PNV 67-iron 2022-0 Yes [id number] 1{each} Take 1 Univers ps-folate 4-29 Each by ity of no.1-dha 00:00: mouth [place] (VITAFOL 00 daily. Medical ULTRA) 29 Branch mg iron- 1 mg-200 mg Cap PNV 67-iron 2021-0 Yes [id number] 1{each} Take 1 Univers ps-folate 4-29 Each by ity of no.1-dha 00:00: mouth [place] (VITAFOL 00 daily. Medical ULTRA) 29 Branch mg iron- 1 mg-200 mg Cap PNV 67-iron 2021-0 Yes [id number] 1{each} Take 1 Univers ps-folate 4-29 Each by ity of no.1-dha 00:00: mouth [place] (VITAFOL 00 daily. Medical ULTRA) 29 Branch mg iron- 1 mg-200 mg Cap PNV 67-iron 2021-0 Yes [id number] 1{each} Take 1 Univers ps-folate 4-29 Each by ity of no.1-dha 00:00: mouth [place] (VITAFOL 00 daily. Medical ULTRA) 29 Branch mg iron- 1 mg-200 mg Cap PNV 67-iron 2021-0 Yes [id number] 1{each} Take 1 Univers ps-folate 4-29 Each by ity of no.1-dha 00:00: mouth [place] (VITAFOL 00 daily. Medical ULTRA) 29 Branch mg iron- 1 mg-200 mg Cap PNV 67-iron 2021-0 Yes [id number] 1{each} Take 1 Univers ps-folate 4-29 Each by ity of no.1-dha 00:00: mouth [place] (VITAFOL 00 daily. Medical ULTRA) 29 Branch mg iron- 1 mg-200 mg Cap PNV 67-iron 2021-0 Yes [id number] 1{each} Take 1 Univers ps-folate 4-29 Each by ity of no.1-dha 00:00: mouth [place] (VITAFOL 00 daily. Medical ULTRA) 29 Branch mg iron- 1 mg-200 mg Cap PNV 67-iron 2-0 Yes [id number] 1{each} Take 1 Univers ps-folate 4-29 Each by ity of no.1-dha 00:00: mouth [place] (VITAFOL 00 daily. Medical ULTRA) 29 Branch mg iron- 1 mg-200 mg Cap PNV 67-iron 2-0 Yes [id number] 1{each} Take 1 Univers ps-folate 4-29 Each by ity of no.1-dha 00:00: mouth [place] (VITAFOL 00 daily. Medical ULTRA) 29 Branch mg iron- 1 mg-200 mg Cap PNV 67-iron Yes [id number] 1{each} Take 1 Univers ps-folate 4-29 Each by ity of no.1-dha 00:00: mouth [place] (VITAFOL 00 daily. Medical ULTRA) 29 Branch mg iron- 1 mg-200 mg Cap PNV 67-iron Yes [id number] 1{each} Take 1 Univers ps-folate 4-29 Each by ity of no.1-dha 00:00: mouth [place] (VITAFOL 00 daily. Medical ULTRA) 29 Branch mg iron- 1 mg-200 mg Cap PNV 67-iron Yes [id number] 1{each} Take 1 Univers ps-folate 4-29 Each by ity of no.1-dha 00:00: mouth [place] (VITAFOL 00 daily. Medical ULTRA) 29 Branch mg iron- 1 mg-200 mg Cap PNV 67-iron Yes [id number] 1{each} Take 1 Univers ps-folate 4-29 Each by ity of no.1-dha 00:00: mouth [place] (VITAFOL 00 daily. Medical ULTRA) 29 Branch mg iron- 1 mg-200 mg Cap PNV 67-iron Yes [id number] 1{each} Take 1 Univers ps-folate 4-29 Each by ity of no.1-dha 00:00: mouth [place] (VITAFOL 00 daily. Medical ULTRA) 29 Branch mg iron- 1 mg-200 mg Cap proMETHazin 2021- No [id number] 25mg Take 1 Univers e 25 mg 4-29 12- tablet by ity of tablet 00:00: 00:00 mouth [place] 00 :00 every 6 Medical (six) Branch hours as needed for Nausea and Vomiting (N/V). Immunizations Ordered Filled Immunization Date Status Comments [facility] e Immunization Name Name TDAP 2022-08-20 Completed University of 00:00:00 [facility] TDAP 2022-08-20 Completed University of 00:00:00 [facility] TDAP 2022-08-20 Completed University of 00:00:00 [facility] TDAP 2022-08-20 Completed University of 00:00:00 [place] [facility] TDAP 2022-08-20 Completed [facility] of 00:00:00 [place] [facility] TDAP 2022-08-20 Completed University of 00:00:00 [place] [facility] TDAP 2022-08-20 Completed [facility] of 00:00:00 [facility] TDAP 2022-08-20 Completed University of 00:00:00 [facility] TDAP 2022-08-20 Completed University of 00:00:00 [place] [facility] TDAP 2022-08-20 Completed [facility] of 00:00:00 [facility] TDAP 2022-08-20 Completed University of 00:00:00 [facility] TDAP 2022-08-20 Completed University of 00:00:00 [facility] TDAP 2022-08-20 Completed [facility] of 00:00:00 [facility] TDAP 2022-08-20 Completed University of 00:00:00 [facility] TDAP 2022-08-20 Completed University of 00:00:00 [facility] TDAP 2022-08-20 Completed University of 00:00:00 [facility] TDAP 2022-08-20 Completed University of 00:00:00 [facility] TDAP 2022-08-20 Completed University of 00:00:00 [facility] TDAP 2022-08-20 Completed University of 00:00:00 [facility] TDAP 2022-08-20 Completed University of 00:00:00 [facility] TDAP 2022-08-20 Completed University of 00:00:00 [facility] TDAP 2022-08-20 Completed University of 00:00:00 [facility] TDAP 2022-08-20 Completed University of 00:00:00 [facility] Vital Signs Vital Name Observation Time Observation Value Comments Source Systolic blood 2022-12-01 118 mm[Hg] University of pressure 04:21:00 [facility] Diastolic blood 2022-12-01 76 mm[Hg] University o f pressure 04:21:00 [facility] Heart rate 2022-12-01 78 /min University of 04:21:00 [facility] Body temperature 2022-12-01 36.72 [place] University of 04:21:00 [facility] Respiratory rate 2022-12-01 18 /min University of 04:21:00 [facility] Body height 2022-12-01 160 cm University of 04:21:00 [facility] Body weight 2022-12-01 92.987 kg University of 04:21:00 [facility] BMI 2022-12-01 36.31 kg/m2 University of 04:21:00 [facility] Oxygen saturation 2022-12-01 100 /min University of in Arterial blood 04:21:00 [place] [facility] by Pulse oximetry Branch Systolic blood 2022-11-16 105 mm[Hg] University of pressure 15:33:00 [facility] Diastolic blood 2022-11-16 70 mm[Hg] University o f pressure 15:33:00 [facility] Heart rate 2022-11-16 104 /min University of 15:33:00 [facility] Body temperature 2022-11-16 36.17 [place] University of 15:33:00 [facility] Respiratory rate 2022-11-16 20 /min University of 15:33:00 [facility] Body height 2022-11-16 160 cm University of 15:33:00 [facility] Body weight 2022-11-16 99.882 kg University of 15:33:00 [facility] BMI 2022-11-16 39.01 kg/m2 University of 15:33:00 [facility] Systolic blood 2022-11-11 120 mm[Hg] University of pressure 19:02:00 [facility] Diastolic blood 2022-11-11 72 mm[Hg] University o f pressure 19:02:00 [facility] Heart rate 2022-11-11 92 /min University of 18:51:00 [facility] Body temperature 2022-11-11 36.78 [place] [facility] of 18:51:00 [facility] Oxygen saturation 2022-11-11 98 /min University of in Arterial blood 18:51:00 [place] [facility] by Pulse oximetry Branch Systolic blood 2022-11-11 128 mm[Hg] University of pressure 00:02:00 [facility] Diastolic blood 2022-11-11 88 mm[Hg] University o f pressure 00:02:00 [place] [facility] Branch Heart rate 2022-11-11 75 /min University of 00:02:00 [place] [facility] Respiratory rate 2022-11-11 18 /min University of 00:02:00 [facility] Oxygen saturation 2022-11-11 98 /min University of in Arterial blood 00:02:00 [place] [facility]i natalie by Pulse oximetry Branch Body temperature 2022-11-10 37.22 [place] University [facility] 21:50:00 [place] [facility] Body height 2022-11-10 160 cm University of 21:50:00 [facility] Body weight 2022-11-10 104.327 kg University of 21:50:00 [facility] BMI 2022-11-10 40.74 kg/m2 University of 21:50:00 [facility] Heart rate 2022-11-08 119 /min University of 13:40:00 [facility] Systolic blood 2022-11-08 145 mm[Hg] pt was in pain. University of pressure 13:28:00 nurse will [place] [facility] recheck pulse Branch Diastolic blood 2022-11-08 79 mm[Hg] pt was in pain. Univers y of pressure 13:28:00 nurse will [place] [facility] recheck pulse Branch Body temperature 2022-11-08 37 [place] [facility] of 13:28:00 [facility] Respiratory rate 2022-11-08 20 /min University of 13:28:00 [facility] Oxygen saturation 2022-11-08 97 /min University of in Arterial blood 13:28:[address] [facility] natalie by Pulse oximetry Branch Body weight 2022-11-06 110 kg University of 20:30:00 [facility] BMI 2022-11-06 42.97 kg/m2 University of 20:30:00 [place] [facility] Systolic blood 2022-11-07 121 mm[Hg] University of pressure 09:00:00 [place] [facility] Diastolic blood 2022-11-07 56 mm[Hg] University o f pressure 09:00:00 [facility] Heart rate 2022-11-07 107 /min University of 09:00:00 [place] [facility] Respiratory rate 2022-11-07 18 /min University of 09:00:00 [place] [facility] Oxygen saturation 2022-11-07 98 /min University of in Arterial blood 09:00:[address] [facility] natalie by Pulse oximetry Branch Body temperature 2022-11-07 38.44 [place] University [facility] 08:30:00 [place] [facility] Body weight 2022-11-06 110 kg University of 20:30:00 [facility] BMI 2022-11-06 42.97 kg/m2 University of 20:30:00 [facility] Systolic blood 2022-10-30 119 mm[Hg] University of pressure 18:30:00 [facility] Diastolic blood 2022-10-30 84 mm[Hg] University o f pressure 18:30:00 [facility] Heart rate 2022-10-30 88 /min University of 18:30:00 [facility] Body temperature 2022-10-30 36.78 [place] University of 18:30:00 [facility] Respiratory rate 2022-10-30 18 /min University of 18:30:00 [facility] Body height 2022-10-30 160 cm University of 18:30:00 [facility] Body weight 2022-10-30 110 kg University of 18:30:00 [facility] BMI 2022-10-30 42.97 kg/m2 University of 18:30:00 [facility] Oxygen saturation 2022-10-30 99 /min [facility] in Arterial blood 18:30:00 [facility] by Pulse oximetry Branch Systolic blood 2022-10-23 117 mm[Hg] University of pressure 16:06:00 [facility] Diastolic blood 2022-10-23 70 mm[Hg] University o f pressure 16:06:00 [facility] Heart rate 2022-10-23 99 /min University of 16:06:00 [facility] Body temperature 2022-10-23 36.39 [place] [facility] 16:06:00 [facility] Respiratory rate 2022-10-23 20 /min University of 16:06:00 [facility] Body height 2022-10-23 160 cm University of 16:06:00 [facility] Body weight 2022-10-23 109.272 kg University of 16:06:00 [facility] BMI 2022-10-23 42.67 kg/m2 University of 16:06:00 [facility] Systolic blood 2022-10-11 128 mm[Hg] University of pressure 17:21:00 [facility] Diastolic blood 2022-10-11 69 mm[Hg] University o f pressure 17:21:00 [facility] Heart rate 2022-10-11 107 /min University of 17:21:00 [facility] Body temperature 2022-10-11 36.61 Aicha University of 17:21:00 [facility] Respiratory rate 2022-10-11 16 /min University of 17:21:00 [facility] Body height 2022-10-11 160 cm University of 17:21:00 [facility] Body weight 2022-10-11 107.616 kg University of 17:21:00 [facility] BMI 2022-10-11 42.03 kg/m2 University of 17:21:00 [facility] Systolic blood 2022-10-06 109 mm[Hg] University of pressure 17:03:00 [facility] Diastolic blood 2022-10-06 68 mm[Hg] University o f pressure 17:03:00 [facility] Heart rate 2022-10-06 100 /min University of 17:03:00 [facility] Body temperature 2022-10-06 36.06 Aicha University of 17:03:00 [facility] Respiratory rate 2022-10-06 18 /min University of 17:03:00 [facility] Body height 2022-10-06 160 cm University of 17:03:00 [facility] Body weight 2022-10-06 106.737 kg University of 17:03:00 [facility] BMI 2022-10-06 41.68 kg/m2 University of 17:03:00 [facility] Systolic blood 2022-10-01 113 mm[Hg] University of pressure 21:09:00 [facility] Diastolic blood 2022-10-01 68 mm[Hg] University o f pressure 21:09:00 [facility] Heart rate 2022-10-01 98 /min University of 21:09:00 [facility] Body temperature 2022-10-01 36.56 Aicha University of 21:09:00 [facility] Respiratory rate 2022-10-01 16 /min University of 21:09:00 [facility] Body height 2022-10-01 160 cm University of 21:09:00 [facility] Body weight 2022-10-01 105.461 kg University of 21:09:00 [facility] BMI 2022-10-01 41.19 kg/m2 University of 21:09:00 [facility] Systolic blood 2022-09-16 117 mm[Hg] University of pressure 21:10:00 [facility] Diastolic blood 2022-09-16 66 mm[Hg] University o f pressure 21:10:00 [facility] Heart rate 2022-09-16 98 /min University of 21:10:00 [facility] Body temperature 2022-09-16 36.28 Aicha University of 21:10:00 [facility] Respiratory rate 2022-09-16 18 /min University of 21:10:00 [facility] Body height 2022-09-16 160 cm University of 21:10:00 [facility] Body weight 2022-09-16 104.441 kg University of 21:10:00 [facility] BMI 2022-09-16 40.79 kg/m2 University of 21:10:00 [facility] Systolic blood 2022-09-02 109 mm[Hg] University of pressure 20:30:00 [facility] Diastolic blood 2022-09-02 70 mm[Hg] University o f pressure 20:30:00 [facility] Heart rate 2022-09-02 106 /min University of 20:30:00 [facility] Body temperature 2022-09-02 36.39 Aicha University of 20:30:00 [facility] Respiratory rate 2022-09-02 17 /min University of 20:30:00 [facility] Body height 2022-09-02 160 cm University of 20:30:00 [facility] Body weight 2022-09-02 103.42 kg University of 20:30:00 [facility] BMI 2022-09-02 40.39 kg/m2 University of 20:30:00 [facility] Systolic blood 2022-08-19 116 mm[Hg] University of pressure 21::00 [facility] Diastolic blood 2022-08-19 61 mm[Hg] University o f pressure ::00 [facility] Heart rate 2022-08-19 100 /min University of 21::00 [facility] Body temperature 2022-08-19 36.44 Aicha University of ::00 [facility] Respiratory rate 2022-08-19 18 /min University of ::00 [facility] Body weight 2022-08-19 103.511 kg University of 21::00 [facility] BMI 2022-08-19 40.42 kg/m2 University of 21:27:00 [facility] Procedures Procedure Date / Time Performing Clinician Source Performed CONSENT/REFUSAL FOR 2022-12-01 04:14:11 Doctor Unassigned, No Un [facility] DIAGNOSIS AND TREATMENT Name Medical Branch URINALYSIS 2022-11-10 22:22:00 Junior Sanchez o f [facility] RAPID INFLUENZA A/B 2022-11-10 22:22:00 Junior Sanchez [facility] COVID-19 (ID NOW RAPID 2022-11-10 22:22:00 [facility] CONSENT/REFUSAL FOR 2022-11-10 21:39:22 Doctor Unassigned, No Un [facility] DIAGNOSIS AND TREATMENT Name [facility] CBC WITH DIFF 2022-11-08 11:27:00 Jenusaitis, [facility] CBC WITH DIFF 2022-11-08 11:27:00 Jenusaitis, [facility] VENOUS CORD GAS 2022-11-07 07:15:00 Evelyne [facility] VENOUS CORD GAS 2022-11-07 07:15:00 Elvia [facility] SECTION 2022-11-07 06:29:00 Tony [facility] SECTION 2022-11-07 06:29:00 Tony [facility] CENTRAL NEURAXIAL BLOCK 2022-11-06 05:38:50 Jonathan Bedoya Un [facility] CBC WITH DIFF 2022-11-05 15:09:00 Veto Stubbs [facility] HEPATITIS B SURFACE 2022-11-05 15:09:00 Veto Stubbs [facility] HIV 1/2 AG-AB WITH 2022-11-05 15:09:00 Veto Stubbs [facility] REFLEX [facility] GALV ONLY - [place] 2022-11-05 15:09:00 Veto Stubbs [facility] IGG/IGM [facility] CBC WITH DIFF 2022-11-05 15:09:00 Veto Stubbs [facility] HEPATITIS B SURFACE 2022-11-05 15:09:00 Veto Stubbs [facility] HIV 1/2 AG-AB WITH 2022-11-05 15:09:00 Veto Stubbs [facility] REFLEX [facility] GALV ONLY - [place] 2022-11-05 15:09:00 Veto Stubbs [facility] IGG/IGM [facility] HB ABO GROUPING 2022-11-05 15:07:00 Veto Stubbs [facility] RHO (D) IMMUNE GLOBULIN 2022-11-05 15:07:00 Clarice Antonio Uni [facility] HB ABO GROUPING 2022-11-05 15:07:00 Veto Stubbs [facility] RHO (D) IMMUNE GLOBULIN 2022-11-05 15:07:00 Antonio Oneil Uni [facility] NOTICE OF PRIVACY 2022-10-30 18:16:50 Doctor Unassigned, No [facility] PRACTICES [facility] CONSENT/REFUSAL FOR 2022-10-30 18:11:51 Doctor Unassigned, No [facility] DIAGNOSIS AND TREATMENT [facility] POCT URINALYSIS 2022-10-23 00:00:00 Nataliia Dodson [facility] DME/SUPPLY JUSTIFICATION 2022-10-20 06:01:00 Doctor Unassigned, No [facility] POCT URINALYSIS 2022-10-11 17:22:00 Nataliia Dodson [facility] POCT URINALYSIS 2022-10-06 17:04:00 Nataliia Dodson [facility] POCT URINALYSIS 2022-10-01 21:10:00 Nataliia Dodson [facility] POCT URINALYSIS 2022-09-16 21:13:00 Nataliia Dodson [facility] POCT URINALYSIS 2022-09-02 00:00:00 Nataliia Dodson [facility] HIV 1/2 AG-AB WITH 2022-08-20 16:04:00 Nataliia Dodson [facility] GALV ONLY - [place] 2022-08-20 16:04:00 [facility] TDAP VACCINE, >11 YRS, 2022-08-19 21:20:21 Nataliia Dodson [facility] Encounters Start End Encounter Admission Attending Care Care Encounter Source Date/Time Date/Time Type Type Clinicians Facility Department ID 2022-12-10 2022-12-10 Outpatient Aga MEI [facility] [id number] Univers 15:45:00 15:45:00 YOLY sally [facility] 2022-12-07 2022-12-07 Outpatient Aga MEI [facility] [id number] Univers 16:00:00 16:00:00 OYLY [facility] 2022-11-30 2022-11-30 [facility] ERT [id number] Univers 22:24:00 22:41:00 JOELJODI [facility] 2022-11-30 2022-11-30 Emergency [facility] 1.2.843.028 [id number] Univers 22:24:00 22:41:00 Fidencio Khalil [place] 350.1.13.10 ity [facility] 4.2.7.2.686 [facility] [id number] [address] 2022-11-30 2022-11-30 Outpatient Aga MEI [facility] [id number] Univers 14:00:00 14:00:00 YOLY [facility] 2022-11-25 2022-11-25 Telephone Ivory [facility] 1.2.840.114 [id number] Univers 00:00:00 00:00:00 Nataliia King [employer]DER 350.1.13.10 ity [facility] 4.2.7.2.686 Julio MATERNAL [id number] Med ical & CHILD [address] [place] [address] 2022-11-16 2022-11-16 Nurse Visit, Jesus-Rmchp Nurse [facility] 1.2 .840.114 [id number] Univers 09:30:00 09:30:00 Visit Katrin Khalil P[employer] BUILDER 350 .1.13.10 ity of Nataliia Dodson [facility] 4.2.7.2.68 6 [place] MATERNAL [id number] Med ical & CHILD [address] [place] [address] 2022-11-16 2022-11-16 Outpatient R IVORY, [facility] [id number] Univers 09:30:00 09:07:58 NATALIIA hendrix o f [facility] 2022-11-11 2022-11-11 Outpatient P VISH [facility] JERRELL [id number] Univers 12:39:00 14:15:00 BIANKA hendrix [facility] 2022-11-11 2022-11-11 [facility] Vish SHABANA 1.2.840.114 [id number] Univers 12:39:00 14:15:00 Encounter Bianka JERICHO 350.1.13.10 ity [facility] 4.2.7.2.686 [place] [phone] [facility] [address] 2022-11-11 2022-11-11 Telephone SHABANA Jimenez 1.2.840.114 [id number] Univers 00:00:00 00:00:00 Steve ECHAVARRIA 350.1.13.10 i ty [facility] 4.2.7.2.686 Julio as [id number] [facility] 013 Branch 2022-11-10 2022-11-10 Emergency X SANCHEZ [facility] ERT [id number] Univers 15:56:00 18:18:00 JUNIOR hendrix [facility] 2022-11-10 2022-11-10 Emergency FlacoDelroy conteh [facility] 1.2. 840.114 [id number] Univers 15:56:00 18:18:00 Junior Sanchez 350.1.13.10 ity [facility] 4.2.7.2.686 [place] [facility] [id number] [facility] 084 Branch 2022-11-05 2022-11-08 Inpatient P SERGE [facility] JERRELL [id number] Univers 07:55:00 17:34:00 ROCKY hendrix [facility] 2022-11-05 2022-11-08 [facility] SHABANA Conrad 1.2.105.363 [id number] Univers 07:55:00 17:34:00 Encounter Rocky ECHAVARRIA [facility].1.13.10 [facility] 4.2.7.2.686 Julio as [id number] [facility] [address] 2022-11-07 2022-11-07 Surgery SHABANA Jimenez 1.2.840.114 [id number] Univers 01:15:00 03:00:00 Steve ECHAVARRIA 350.1.13.10 i [facility] 4.2.7.2.686 Julio as [id number] [facility] [address] 2022-11-05 2022-11-05 Anesthesia Jennifer Fajardo 1.2. 840.114 [id number] Univers 22:28:00 22:28:00 Event Amber Conde JERICHO 350.1.13.10 [facility]y [facility] 4.2.7.2.686 Julio as [id number] [facility] [address] 2022-10-30 2022-10-30 Outpatient X ADUM, [facility] JERRELL [id number] Univers 12:23:00 13:45:00 AUDREY [facility] 2022-10-30 2022-10-30 Emergency Adum, [facility] 1.2.098.373 [id number] Univers 12:23:00 13:45:00 Audrey MOORE 350.1.13.10 ity of [place].7.2.686 [place] [id number] [facility] [address] 2022-10-28 2022-10-28 Outpatient R SIGIFREDO [facility] [id number] Univers 15:45:00 15:45:00 YOLY [facility] 2022-10-23 2022-10-23 Outpatient Aga SOSA [facility] [id number] Univers 10:15:00 10:30:34 ROSAMARIA hendrix [facility] 2022-10-23 2022-10-23 [facility]ine [facility] 1 .2.840.114 [id number] Univers 10:15:00 10:30:34 Rosamaria Sosa [employer] BUILDER 350.1.13.10 ity of Visit [facility] 4.2.7.2.686 Julio as MATERNAL [id number] Med ical & CHILD [address] [place] [address] 2022-10-20 2022-10-20 Orders Doctor SHABANA 1.2.840.114 [id number] Univers 00:00:00 00:00:00 Only Unassigned, JERICHO 350.1.13.10 ity of [facility] 4.2.7.2.686 Julio as [id number] [address] 2022-10-12 2022-10-12 Outpatient R [facility] [id number] Univers 13:15:00 13:15:00 ity of [facility] 2022-10-12 2022-10-12 [facility] 1.2.840.114 [id number] Univers 00:00:00 00:00:00 Nataliia C [employer] BUILDER 350.1.13.10 ity of [facility] 4.2.7.2.686 Julio as MATERNAL [id number] [facility] ical & CHILD [address] [place] [address] 2022-10-11 2022-10-11 [facility] 1.2.647.056 [id number] Univers 11:00:00 11:15:00 Nataliia King [employer] BUILDER 350.1.13.10 ity of Visit [facility] 4.2.7.2.686 Julio as MATERNAL [id number] [facility] & CHILD [address] [place] [address] 2022-10-11 2022-10-11 Outpatient R IVORY [facility] [id number] Univers 11:00:00 11:00:00 NATALIIA hendrix o f [facility] 2022-10-07 2022-10-07 Outpatient R SIGIFREDO [facility] [id number] Univers 14:00:00 14:00:[address] [facility] 2022-10-06 2022-10-06 Outpatient R SIGIFREDO [facility] [id number] Univers 10:45:00 11:48:25 YOLY [facility] 2022-10-06 2022-10-06 Routine [facility] 1 .2.840.114 [id number] Univers 10:45:00 11:48:25 Yoly Mei P[employer] J[employer] BUILDER 350.1.13. 10 ity of Visit REGIONAL 4.2.7.2.686 Julio as MATERNAL [id number] [facility] [address] [place] [address] 2022-10-04 2022-10-04 Outpatient R AKINSIPE, [facility] [id number] Univers 15:30:00 15:30:00 NATALIIA ity o f [facility] 2022-10-01 2022-10-01 Outpatient R AKINSIPE, [facility] [id number] Univers 14:45:00 15:40:54 NATALIIA ity o f [facility] 2022-10-01 2022-10-01 Routine Akinsipe, [facility] 1.2.730.034 [id number] Univers 14:45:00 15:40:54 Nataliia C [employer] BUILDER 350.1.13.10 ity of Visit REGIONAL 4.2.7.2.686 Julio as MATERNAL [id number] [facility] & CHILD [address] [place] [address] 2022-09-16 2022-09-16 Routine Akinsipe, [facility] 1.2.478.736 [id number] Univers 16:00:00 16:15:00 Nataliia C [employer] BUILDER 350.1.13.10 ity of Visit REGIONAL 4.2.7.2.686 Julio as MATERNAL [id number] [facility] & CHILD [address] [place] [address] 2022-09-16 2022-09-16 Outpatient R AKINSIPE, [facility] [id number] Univers 16:00:00 16:00:00 NATALIIA ity o [facility] 2022-09-02 2022-09-02 Outpatient R AKINSIPE, [facility] [id number] Univers 15:30:00 15:44:03 NATALIIA ity o [facility] 2022-09-02 2022-09-02 Routine Akinsipe, [facility] 1.2.397.554 [id number] Univers 15:30:00 15:44:03 Nataliia C [employer] BUILDER 350.1.13.10 ity of Visit REGIONAL 4.2.7.2.686 Julio as MATERNAL [id number] [facility] & CHILD [address] [place] [address] 2022-08-20 2022-08-20 Outpatient R AKINSIPE, [facility] [id number] Univers 10:30:00 11:08:03 NATALIIA ity o sherine [facility] 2022-08-20 2022-08-20 Drama Therapist Lab, Ang-Rmchp [facility] 1.2.840. 114 [id number] Univers 10:30:00 11:08:03 Visit Ivory Nataliia C [employer] BUILDER 350.1.13. 10 ity of [facility] 4.2.7.2.686 Julio as MATERNAL [id number] Med ical & CHILD [address] [place] [address] 2022-08-19 2022-08-19 Outpatient R IVORY [facility] [id number] Univers 16:00:00 16:44:59 NATALIIA ity o f [facility] 2022-08-19 2022-08-19 Routine [facility] 1.2.193.145 [id number] Univers 16:00:00 16:44:59 Nataliia C P[employer] J[employer] BUILDER 350.1.13.10 ity of Visit REGIONAL 4.2.7.2.686 Julio as MATERNAL [id number] [facility] [address] [place] [address] 2022-08-06 2022-08-06 Outpatient P [facility] [id number] Univers 15:15:00 15:15:00 ity of [facility] 2022-08-06 2022-08-06 [facility] 1.2.840.114 [id number] Univers 00:00:00 00:00:00 Nataliia C [employer] BUILDER 350.1.13.10 ity of REG[facility]AL 4.2.7.2.686 Julio as MATERNAL [id number] [facility] [address] [place] [address] 2022-08-06 2022-08-06 Telephone [facility] 1.2.840.114 [id number] Univers 00:00:00 00:00:00 Nataliia C [employer] BUILDER 350.1.13.10 ity of REGIONAL 4.2.7.2.686 Julio as MATERNAL [id number] [facility] ical & CHILD [address] [place] [address] 2022-08-05 2022-08-05 Routine Akinsipe, [facility] 1.2.425.975 [id number] Univers 13:00:00 13:21:54 Nataliia C [employer] BUILDER 350.1.13.10 ity of Visit REGIONAL 4.2.7.2.686 Julio as MATERNAL [id number] [facility] [address] [place] [address] 2022-08-05 2022-08-05 Outpatient R AKINSIPE, [facility] [id number] Univers 13:00:00 13:21:54 NATALIIA ity o f [facility] 2022-08-05 2022-08-05 Outpatient R AKINSIPE, [facility] [id number] Univers 13:00:00 13:21:54 NATALIIA ity o f [facility] 2022-08-05 2022-08-05 Outpatient R AKINSIPE, [facility] [id number] Univers 13:00:00 13:00:00 NATALIIA ity o [facility] 2022-07-20 2022-07-20 Abstract Akinpe, [facility] 1.2.840.114 [id number] Univers 00:00:00 00:00:00 Nataliia C [employer] J[employer] BUILDER 350.1.13.10 ity of REGIONAL 4.2.7.2.686 Julio as MATERNAL [id number] [facility] & [address] 2022-07-19 2022-07-19 Drama Therapist Ultrasound, [facility] 1.2 .840.114 [id number] Univers 13:00:00 13:31:46 Visit Leola Greco P[employer] J[employer]TURE BUILDER 350.1. 13.10 ity of REGIONAL 4.2.7.2.686 Julio as MATERNAL [id number] [facility] [address] [facility] 2022-07-19 2022-07-19 Outpatient P [facility] [id number] Univers 13:00:00 13:00:00 ity of [facility] 2022-07-19 2022-07-19 Outpatient P KATHIE [facility] [id number] Univers 13:00:00 13:00:00 JUAN CARLOS it y of SLEOLA [facility] 2022-07-19 2022-07-19 Telephone [facility] 1.2.840.114 [id number] Univers 00:00:00 00:00:00 Nataliia C P[employer] J[employer] BUILDER 350.1.13.10 ity of [facility] 4.2.7.2.686 Julio as MATERNAL [id number] [address] 2022-07-05 2022-07-05 Routine [facility] 1.2.334.873 [id number] Univers 15:30:00 15:45:00 Nataliia C P[employer] J[employer]TURE BUILDER 350.1.13.10 ity of Visit [facility] 4.2.7.2.686 Julio as MATERNAL [id number] [address] 2022-07-05 2022-07-05 Outpatient R LEVINDALE [facility] [id number] Univers 15:30:00 15:30:00 NATALIIA hendrix o [facility] 2022-07-05 2022-07-05 Outpatient R [facility] [id number] Univers 15:30:00 15:30:00 NATALIIA lovey o [facility] 2022-06-25 2022-06-25 Orders Doctor SHABANA 1.2.840.114 [id number] Univers 00:00:00 00:00:00 Only Unassigned, JERICHO 350.1.13.10 ity of [facility] 4.2.7.2.686 Julio as [id number] [address] 2022-06-21 2022-06-21 Telephone [facility] 1.2.840.114 [id number] Univers 00:00:00 00:00:00 Nataliia C P[employer] J[employer]TURE BUILDER 350.1.13.10 ity of [facility] 4.2.7.2.686 Julio as MATERNAL [id number] [address] 2022-06-18 2022-06-18 Drama Therapist [facility]tras[facility] 1.2 .840.114 [id number] Univers 14:45:00 16:00:00 Visit Leatha Michele P[employer] J[employer] AND FIXTURE BUILDER 350.1.13.10 ity of REGIONAL 4.2.7.2.686 Jluio as MATERNAL [id number] [facility] ical & CHILD [address] [facility] 2022-06-18 2022-06-18 Outpatient P [facility] [id number] Univers 14:45:00 14:45:00 ity [facility] 2022-06-18 2022-06-18 Outpatient P RYNE, [facility] [id number] Univers 14:45:00 14:45:00 [facility]22-[facility]-18 2022-06-18 Abstract [facility] 1.2.840.114 [id number] Univers 00:00:00 00:00:00 Nataliia C P[employer] BUILDER 350.1.13.10 ity of REG[facility]AL 4.2.7.2.686 Julio as MATERNAL [id number] [facility] [address] [place] [address] 2022-06-11 2022-06-11 [facility] 1.2.980.481 [id number] Univers 00:00:00 00:00:00 Rosyarya R [employer] BUILDER 350.1.13.10 ity of REGIONAL 4.2.7.2.686 Julio as MATERNAL [id number] [facility] & CHILD [address] [place] [address] 2022-06-07 2022-06-07 Routine [facility] 1.2.575.451 [id number] Univers 12:45:00 13:00:00 Nataliia King P[employer] BUILDER 350.1.13.10 ity of Visit REGIONAL 4.2.7.2.686 Julio as MATERNAL [id number] [facility] [address] [place] [address] 2022-06-07 2022-06-07 Outpatient R IVORY, [facility] [id number] Univers 12:45:00 12:45:00 NATALIIA basurto [facility] 2022-06-03 2022-06-03 Outpatient R IVORY, [facility] [id number] Univers 16:00:00 16:00:00 NATALIIA basurto [facility] 2022-05-14 2022-05-14 Outpatient R LEV[facility]ALE [facility] [id number] Univers 16:00:00 16:35:28 NATALIIA ity o f [facility] 2022-05-14 2022-05-14 Routine [facility] 1.2.475.334 [id number] [facility] 16:00:00 16:35:28 Nataliia C P[employer] J[employer]TURE BUILDER 350.1.13.10 ity of Visit REGIONAL 4.2.7.2.686 Julio as MATERNAL [id number] [facility] [address] [place] [address] 2022-05-14 2022-05-14 Orders Doctor SHABANA [id number] [facility] 00:00:00 00:00:00 Only Unassigned, JERICHO 350.1.13.10 ity of [facility] 4.2.7.2.686 Julio as [phone] [facility] [address] 2022-04-30 2022-04-30 SHABANA Sandy [id number] Univers 00:00:00 00:00:00 Triage Cecile JERICHO 350.1.13.10 it y of HOSPITAL 4.2.7.2.686 Julio as [phone] [facility] [address] 2022-04-30 2022-04-30 SHABANA Zuleta [id number] [id number] Univers 00:00:00 00:00:00 Triage Aneatrice JERICHO 350.1.13.10 ity of HOSPITAL 4.2.7.2.686 Julio as [id number] [facility] [address] 2022-04-29 2022-04-29 [facility]phone [facility] [facility] 1.2.840.114 [id number] Univers 00:00:00 00:00:00 Nataliia C PLASTIC JIG AND FIXTURE BUILDER 350.1.13.10 ity of [facility] 4.2.7.2.686 Julio as MATERNAL [id number] [facility] & CHILD [address] [place] [address] 2022-04-28 2022-04-28 SHABANA Sandy 1.2.840.114 [id number] Univers 00:00:00 00:00:00 Triage Cecile JERICHO 350.1.13.10 it y of HOSPITAL 4.2.7.2.686 Juloi as [phone] [address] 2022-04-16 2022-04-16 [facility] 1.2.727.779 [id number] Univers 15:30:00 15:45:00 Nataliia King PLASTIC JIG AND FIXTURE BUILDER 350.1.13.10 ity of Visit [facility] 4.2.7.2.686 Julio as MATERNAL [id number] [facility] & [facility]ILD [address] [place] [address] 2022-04-16 2022-04-16 Outpatient R [facility] [id number] Univers 15:30:00 15:30:00 NATALIIA lovey o f [facility] 2022-04-14 2022-04-14 Abstract [facility] 1.2.840.114 [id number] Univers 00:00:00 00:00:00 Nataliia King PLASTIC JIG AND FIXTURE BUILDER 350.1.13.10 ity of [facility] 4.2.7.2.686 Julio as MATERNAL [id number] [facility] & CHILD [address] [place] [address] 2022-04-09 2022-04-09 Drama Therapist [facility] 1.2 .840.114 [id number] Univers 11:30:00 12:00:00 Visit Janette Thomson PLASTIC JIG AND FIXTURE BUILDER 350.1.13.10 ity of [facility] 4.2.7.2.686 Julio as MATERNAL [id number] [facility] [address] [facility] 2022-04-09 2022-04-09 Outpatient P [facility] [id number] Univers 11:30:00 11:30:00 ity of [facility] 2022-04-09 2022-04-09 Outpatient P JANETTE THOMSON [facility] [id number] Univers 11:30:00 11:30:00 JANETTE THOMSON [facility] 2022-03-24 2022-03-24 Orders Doctor DONALD 1.2.840.114 [id number] Univers 00:00:00 00:00:00 Only Unassigned, JERICHO 350.1.13.10 ity of [facility] 4.2.7.2.686 Julio as [id number] [address] 2022-03-19 2022-03-19 Outpatient R AKINSIPE, [facility] [id number] Univers 15:00:00 15:52:14 NATALIIA hendrix o f [facility] 2022-03-19 2022-03-19 Initial Akinkwan, [facility] 1.2.995.008 [id number] Univers 15:00:00 15:52:14 Nataliia King PLASTIC JIG AND FIXTURE BUILDER 350.1.13.10 ity of Visit [facility] 4.2.7.2.686 Julio as MATERNAL [id number] Med ical & CHILD [address] [place] [address] 2021-06-01 2021-06-01 Outpatient R ADUM, [facility] [id number] Univers 00:00:00 00:00:00 AUDREY [facility] 2021-04-22 2021-04-22 Office Ad, [facility] 1.2.840.114 [id number] Univers 13:59:17 15:04:16 Visit [facility]1.13.10 [facility] [phone] Id dical [address] 2021-04-22 2021-04-22 Outpatient R ADUM, [facility] [id number] Univers 14:00:00 14:00:00 [facility] Results Test Description Test Time Test Comments Results Result Comments Source RHO (D) IMMUNE GLOBULIN 2022-11-07 14:35:32 Test Item Value Reference Range Interpretation Comme nts RHIG CANDIDATE? (test code = No- see comment Patient is not a candidate for RhIg- 5055) Patient is Rh P ositive.Performed at [facility] Laboratory Services - [facility] Blood [address] [place] [address]Mbwe Free: [phone] A No. [id number] [facility] [id number] 14:35:32 Test Item Value Reference Range Interpretation Comments RHIG CANDIDATE? No- see comment Patient i s not a (test code = candidate for R hIg- 5055) Patient is Rh Positive.Perfor med at [facility] Laboratory Services - [facility] Blood [address] [place] [address]Aqdy Free: [phone] A No. [id number] [facility] [id number] 07:34:36 Test Item Value Reference Range Interpretation Comments BASE EXCESS, CORD (test mEq/L code = 0671934243) AC PH, CORD (BEAKER) 7.18-7.38 (test code = 3787174853) PC02, CORD (test code = See_Comment [Au tomated message] 5027522053) The system whic h generated this result transmitted ref erence range: 32 - 66 mmHg. The reference r jaleesa was not used to interpret this result as normal/abnor mal. PO2, CORD (test code = See_Comment L [Aut omated message] 9161656174) The system Marakanaic h generated this result transmitted ref erence range: 10 - 30 mmHg. The reference r jaleesa was not used to interpret this result as normal/abnor mal. BICARBONATE, CORD (test See_Comment [Au tomated message] code = 7246244101) The syste m which generated this result transmitted ref erence range: 17 - 27 mEq/L. The reference r jaleesa was not used to interpret this result as normal/abnor mal. Lab Interpretation (test Abnormal code = 31831-2) [facility] [id number] 07:34:36 Test Item Value Reference Range Interpretation Comments BASE EXCESS, CORD (test mEq/L code = 1409680465) AC PH, CORD (BEAKER) 7.18-7.38 (test code = 7340203265) PC02, CORD (test code = See_Comment [Au tomated message] 9964724074) The system Marakanaic h generated this result transmitted ref erence range: 32 - 66 mmHg. The reference r jaleesa was not used to interpret this result as normal/abnor mal. PO2, CORD (test code = See_Comment L [Aut omated message] 7129547581) The system whic h generated this result transmitted ref erence range: 10 - 30 mmHg. The reference r jaleesa was not used to interpret this result as normal/abnor mal. BICARBONATE, CORD (test See_Comment [Au tomated message] code = 3365379597) The syste m which generated this result transmitted ref erence range: 17 - 27 mEq/L. The reference r jaleesa was not used to interpret this result as normal/abnor mal. Lab Interpretation (test Abnormal code = 89165-7) [facility] CORD [id number] 07:27:55 Test Item Value Reference Range Interpretation Comments VENOUS BASE EXCESS, mEq/L CORD (test code = 3835944717) VENOUS PH, CORD (test 7.25-7.45 code = 0589207261) VENOUS PC02, CORD See_Comment [Automate d message] The (test code = system which ge nerated 2208564437) this result tra nsmitted reference range : 27 - 49 mmHg. The refer ence range was not used to interpret this result as normal/abnormal . VENOUS PO2, CORD (test See_Comment [Aut omated message] The code = 9181967525) system [facility] generated this result tra nsmitted reference range : 17 - 41 mmHg. The refer ence range was not used to interpret this result as normal/abnormal . VENOUS BICARBONATE, See_Comment [Automa steven message] The CORD (test code = system [facility] ch generated 4957368695) this result tra nsmitted reference range : 12 - 29 mEq/L. The refe rence range was not used to interpret this result as normal/abnormal . [facility] CORD [id number] 07:27:55 Test Item Value Reference Range Interpretation Comments VENOUS BASE EXCESS, mEq/L CORD (test code = 7639896826) VENOUS PH, CORD (test 7.25-7.45 code = 0729645931) VENOUS PC02, CORD See_Comment [Automate d message] The (test code = system which ge nerated 1302227931) this result tra nsmitted reference range : 27 - 49 mmHg. The refer ence range was not used to interpret this result as normal/abnormal . VENOUS PO2, CORD (test See_Comment [Aut omated message] The code = 3904238403) system [facility] generated this result tra nsmitted reference range : 17 - 41 mmHg. The refer ence range was not used to interpret this result as normal/abnormal . VENOUS BICARBONATE, See_Comment [Automa steven message] The CORD (test code = system whi ch generated 3823672700) this result tra nsmitted reference range : 12 - 29 mEq/L. The refe rence range was not used to interpret this result as normal/abnormal . [facility] ONLY - SYPHILIS [id number] 16:01:05 Test Item Value Reference Range Interpretation Comments Syphilis IgG/IgM (test Non-reactive Non-reactive code = 37053-5) KELSI (test code = KELSI) Non-reactive - No serologic evidence of T. pallidum infection. Cannot exclude incubating or early syphilis. Submit a second specimen in 2-4 weeks if syphilis is clinically suspected. Equivocal - Further testing to follow. Reactive - Further testing to follow. Lab Interpretation (test Normal code = 26101-1) [facility] ONLY - SYPHILIS [id number] 16:01:05 Test Item Value Reference Range Interpretation Comments Syphilis IgG/IgM (test Non-reactive Non-reactive code = 14237-8) KELSI (test code = KELSI) Non-reactive - No serologic evidence of T. pallidum infection. Cannot exclude incubating or early syphilis. Submit a second specimen in 2-4 weeks if syphilis is clinically suspected. Equivocal - Further testing to follow. Reactive - Further testing to follow. Lab Interpretation (test Normal code = 15635-6) [facility] 1/2 AG-AB WITH [id number] 19:15:57 Test Item Value Reference Range Interpretation Comments HIV Negative Negative Semi-quantitative (test code = 04121-2) KELSI (test code = Non-reactive for HIV-1 KELSI) antigen and HIV-1/HIV-2 antibodies. ?No laboratory evidence of HIV infection. ?Repeat in 2-4 weeks if acute HIV infection is suspected. [facility] 1/2 AG-AB WITH [id number] 19:15:57 Test Item Value Reference Range Interpretation Comments HIV Negative Negative Semi-quantitative (test code = 27687-6) KELSI (test code = Non-reactive for HIV-1 KELSI) antigen and HIV-1/HIV-2 antibodies. ?No laboratory evidence of HIV infection. ?Repeat in 2-4 weeks if acute HIV infection is suspected. [facility] [id number] 16:51:38 Test Item Value Reference Range Interpretation Comments HBsAg Semi-Quantitative (test code = Negative Negative 5195-3) [facility] [id number] 16:51:38 Test Item Value Reference Range Interpretation Comments HBsAg Semi-Quantitative (test code = Negative Negative 5195-3) [facility] - ONCE [id number] 16:13:38 Test Item Value Reference Range Interpretation Comments ABO & RH (test code A POSITIVE Performe d at [facility] = 20) Laboratory [facility] [place] [address] s [address]Fvhh Free: [phone] A No. [id number] IAT (test code = Negative Performed a t [facility] 1185) Laboratory [facility] Blood [address] s [address]Xokh Free: [phone] A No. [id number] [facility] - ONCE [id number] 16:13:38 Test Item Value Reference Range Interpretation Comments ABO & RH (test code A POSITIVE Performe d at [facility] = 20) Laboratory [facility] Blood [address] s [address]Sroi Free: [phone] A No. [id number] IAT (test code = Negative Performed a t [facility] 1185) Laboratory [facility] Blood [address] s [address]Xrne Free: [phone] A No. [id number] [facility] with [id number] 15:38:33 Test Item Value Reference Range Interpretation Comments WBC (test code = See_Comment [Automated 1290-2) message] The sy stem which generated this result transmitted reference range : 4.30 - 11.10 10*3/?L. The reference range was not used to interpret this result as normal/abnormal . RBC (test code = See_Comment [Automated 359-8) message] The sy stem which generated this [...] RDW-SD (test code = 45.7 fL 39.0-49.9 05140-7) RDW-CV (test code = 16.0 % 12.0-15.5 H 788-0) PLT (test code = See_Comment [Automated 777-3) message] The sy stem which generated this result transmitted reference range : 166 - 358 10*3/ ?L. The reference r jaleesa was not used to interpret this result as normal/abnormal . MPV (test code = 10.8 fL 9.5-12.9 98765-5) NRBC/100 WBC (test See_Comment [Automat ed code = 0725664277) message] The system which generated this result transmitted reference range : 0.0 - 10.0 /100 WBCs. The refer ence range was not u sed to interpret th is result as normal/abnormal . NRBC x10^3 (test code See_Comment [Auto mated = 0687692631) message] The s ystem which generated this result transmitted reference range : 10*3/?L. The reference range was not used to interpret this result as normal/abnormal . GRAN MAT (NEUT) % 74.6 % (test code = 770-8) IMM GRAN % (test code 0.60 % = 8258621491) LYMPH % (test code = 18.6 % 736-9) MONO % (test code = 5.5 % 5905-5) EOS % (test code = 0.5 % 713-8) BASO % (test code = 0.2 % 706-2) GRAN MAT x10^3(ANC) 7.23 10*3/uL 1.88-7.09 H (test code = 7047465245) IMM GRAN x10^3 (test 0.06 10*3/uL 0.00-0.06 code = 6383816013) LYMPH x10^3 (test code 1.80 10*3/uL 1.32-3.29 = 731-0) MONO x10^3 (test code 0.53 10*3/uL 0.33-0.92 = 742-7) EOS x10^3 (test code = 0.05 10*3/uL 0.03-0.39 711-2) BASO x10^3 (test code 0.01-0.07 = 704-7) Lab Interpretation Abnormal (test code = 01499-4) [facility] with [id number] 15:38:33 Test Item Value Reference Range Interpretation Comments WBC (test code = See_Comment [Automated 2490-2) message] The sy stem which generated this result transmitted reference range : 4.30 - 11.10 10*3/?L. The reference range was not used to interpret this result as normal/abnormal . RBC (test code = See_Comment [Automated 399-8) message] The sy stem which generated this [...] RDW-SD (test code = 45.7 fL 39.0-49.9 71659-4) RDW-CV (test code = 16.0 % 12.0-15.5 H 788-0) PLT (test code = See_Comment [Automated 777-3) message] The sy stem which generated this result transmitted reference range : 166 - 358 10*3/ ?L. The reference r jaleesa was not used to interpret this result as normal/abnormal . MPV (test code = 10.8 fL 9.5-12.9 13936-3) NRBC/100 WBC (test See_Comment [Automat ed code = 0490964757) message] The system which generated this result transmitted reference range : 0.0 - 10.0 /100 WBCs. The refer ence range was not u sed to interpret th is result as normal/abnormal . NRBC x10^3 (test code See_Comment [Auto mated = 4539710058) message] The s ystem which generated this result transmitted reference range : 10*3/?L. The reference range was not used to interpret this result as normal/abnormal . GRAN MAT (NEUT) % 74.6 % (test code = 770-8) IMM GRAN % (test code 0.60 % = 9298735400) LYMPH % (test code = 18.6 % 736-9) MONO % (test code = 5.5 % 5905-5) EOS % (test code = 0.5 % 713-8) BASO % (test code = 0.2 % 706-2) GRAN MAT x10^3(ANC) 7.23 10*3/uL 1.88-7.09 H (test code = 5265835655) IMM GRAN x10^3 (test 0.06 10*3/uL 0.00-0.06 code = 4414200978) LYMPH x10^3 (test code 1.80 10*3/uL 1.32-3.29 = 731-0) MONO x10^3 (test code 0.53 10*3/uL 0.33-0.92 = 742-7) EOS x10^3 (test code = 0.05 10*3/uL 0.03-0.39 711-2) BASO x10^3 (test code 0.01-0.07 = 704-7) Lab Interpretation Abnormal (test code = 34980-3) [facility] URINALYSIS W SPECIFIC [id number] 16:07:00 Test Item Value Reference Range Interpretation [...] U APPEAR (test code = 3267) . [facility] URINALYSIS W SPECIFIC [id number] 17:23:00 Test Item Value Reference Range Interpretation [...] U APPEAR (test code = 3267) .. [facility] URINALYSIS W SPECIFIC [id number] 17:04:00 Test Item Value Reference Range Interpretation [...] U APPEAR (test code = 3267) . [facility] URINALYSIS W SPECIFIC [id number] 17:04:00 Test Item Value Reference Range Interpretation [...] U APPEAR (test code = 3267) . [facility] URINALYSIS W SPECIFIC [id number] 21:10:00 Test Item Value Reference Range Interpretation [...] POCT U APPEAR (test code = 3267) [facility] URINALYSIS W SPECIFIC [id number] 21:10:00 Test Item Value Reference Range Interpretation [...] POCT U APPEAR (test code = 3267) [facility] URINALYSIS W SPECIFIC [id number] 21:13:00 Test Item Value Reference Range Interpretation [...] POCT U APPEAR (test code = 3267) [facility] URINALYSIS W SPECIFIC [id number] 20:34:00 Test Item Value Reference Range Interpretation [...] U APPEAR (test code = 3267) clear [facility] [place] [id number] 16:13:45 Test Item Value Reference Range Interpretation Comments Syphilis IgG/IgM (test Non-reactive Non-reactive code = 77252-1) KELSI (test code = KELSI) Non-reactive - No serologic evidence of T. pallidum infection. Cannot exclude incubating or early syphilis. Submit a second specimen in 2-4 weeks if syphilis is clinically suspected. Equivocal - Further testing to follow. Reactive - Further testing to follow. Lab Interpretation (test Normal code = 68519-6) [facility] WITH [id number] 05:55:09 Test Item Value Reference Range Interpretation Comments HIV Negative Negative Semi-quantitative (test code = 73952-2) KELSI (test code = Non-reactive for HIV-1 KELSI) antigen and HIV-1/HIV-2 antibodies. ?No laboratory evidence of HIV infection. ?Repeat in 2-4 weeks if acute HIV infection is suspected. [facility]
--- NOTE | 2022-12-10 22:40 | EDPHYS ---
Physician Documentation [facility] Name: Neva Reyes Age: 22 yrs Sex: Female : 2000 Arrival Date: 12/10/2022 Time: 20:58 Bed 13 Private MD: TRACY Physician Loco Lopez HPI: 12/10 22:35 This 22 yrs old Female presents to ER via Ambulatory with complaints of Breast alysia Problem, Pain in breast and axilla area.. 22:35 The patient presents with an abscess of the left axilla, The patient presents with alysia cellulitis of the left axilla. Description: erythematous, swollen. Onset: The symptoms/episode began/occurred 3 day(s) ago. Possible cause(s): unknown. Associated signs and symptoms: The patient has no apparent associated signs or symptoms. Modifying factors: the symptoms are alleviated by remaining still, repositioning , the symptoms are aggravated by pressure, squeezing the lesion and expressing the contents, touching. Severity of symptoms: At their worst the symptoms were mild, in the emergency department the symptoms are unchanged. The patient has not experienced similar symptoms in the past. 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 Flu vaccine is not up to date. - Social history:: Smoking status: Patient denies any tobacco usage or history of. Patient/guardian denies using alcohol, street drugs. - Family history:: not pertinent. ROS: 22:35 Constitutional: Negative for fever, chills, and weight loss, Eyes: Negative for injury, alysia pain, redness, and discharge, ENT: Negative for injury, pain, and discharge, Neck: Negative for injury, pain, and swelling, Cardiovascular: Negative for chest pain, palpitations, and edema, Respiratory: Negative for shortness of breath, cough, wheezing, and pleuritic chest pain, Abdomen/GI: Negative for abdominal pain, nausea, vomiting, diarrhea, and constipation, Back: Negative for injury and pain, : Negative for injury, bleeding, discharge, and swelling, Skin: Negative for injury, rash, and discoloration, Neuro: Negative for headache, weakness, numbness, tingling, and seizure, Psych: Negative for depression, anxiety, suicide ideation, homicidal ideation, and hallucinations, Allergy/Immunology: Negative for hives, rash, and allergies, Endocrine: Negative for neck swelling, polydipsia, polyuria, polyphagia, and marked weight changes, Hematologic/Lymphatic: Negative for swollen nodes, abnormal bleeding, and unusual bruising. 22:35 MS/extremity: Positive for erythema, pain, tenderness, of the left axilla. Exam: 22:35 Constitutional: This is a well developed, well nourished patient who is awake, alert, alysia and in no acute distress. Head/Face: Normocephalic, atraumatic. Eyes: Pupils equal round and reactive to light, extra-ocular motions intact. Lids and lashes normal. Conjunctiva and sclera are non-icteric and not injected. Cornea within normal limits. Periorbital areas with no swelling, redness, or edema. ENT: Nares patent. No nasal discharge, no septal abnormalities noted. Tympanic membranes are normal and external auditory canals are clear. Oropharynx with no redness, swelling, or masses, exudates, or evidence of obstruction, uvula midline. Mucous membranes moist. Neck: Trachea midline, no thyromegaly or masses palpated, and no cervical lymphadenopathy. Supple, full range of motion without nuchal rigidity, or vertebral point tenderness. No Meningismus. Chest/axilla: Normal chest wall appearance and motion. Nontender with no deformity. No lesions are appreciated. Cardiovascular: Regular rate and rhythm with a normal S1 and S2. No gallops, murmurs, or rubs. Normal PMI, no JVD. No pulse deficits. Respiratory: Lungs have equal breath sounds bilaterally, clear to auscultation and percussion. No rales, rhonchi or wheezes noted. No increased work of breathing, no retractions or nasal flaring. Abdomen/GI: Soft, non-tender, with normal bowel sounds. No distension or tympany. No guarding or rebound. No evidence of tenderness throughout. Back: No spinal tenderness. No costovertebral tenderness. Full range of motion. Skin: Warm, dry with normal turgor. Normal color with no rashes, no lesions, and no evidence of cellulitis. Neuro: Awake and alert, GCS 15, oriented to person, place, time, and situation. Cranial nerves II-XII grossly intact. Motor strength 5/5 in all extremities. Sensory grossly intact. Cerebellar exam normal. Normal gait. 22:35 Musculoskeletal/extremity: ROM: no acute changes, intact in all extremities, full active range of motion, full passive range of motion, Circulation is intact in all extremities. Sensation intact. Compartment Syndrome exam of affected extremity: is normal. 22:35 Skin: abscess, that is small, of the left axilla, with surrounding cellulitis, that is very mild, that is mild, cellulitis, that is minimal, induration, that is mild is noted. Vital Signs: 21:31 BP 112 / 64; Pulse 89; Resp 17; Temp 98.8(O); Pulse Ox 100% on R/A; Weight 92.99 kg lg3 (R); Height 5 ft. 3 in. (160.02 cm) (R); Pain 5/10; 23:31 BP 117 / 68; Pulse 82; Resp 17; Temp 98.7; Pulse Ox 100% ; ke1 21:31 Body Mass Index 36.31 (92.99 kg, 160.02 cm) lg3 MDM: 21:18 Patient medically screened. alysia 22:38 Differential diagnosis: abscess, allergic reaction, cellulitis, insect bite. Data alysia reviewed: vital signs, nurses notes. Consideration of Admission/Observation Patient was admitted/placed on observation. Escalation of care including admission/observation considered. Test considered but Not performed: Labs: cbc , bmp not done. Administered Medications: 23:19 Drug: Bactrim (trimethoprim-sulfamethoxazole) (160 mg-800 mg (DS) 1 tablet Route: PO; ke1 23:31 Follow up: Response: No adverse reaction ke1 23:19 Drug: KeFLEX (cephalexin) 500 mg Route: PO; ke1 23:31 Follow up: Response: No adverse reaction ke1 23:19 Drug: Motrin (ibuprofen) 800 mg Route: PO; ke1 23:30 Follow up: Response: No adverse reaction ke1 Disposition Summary: 12/10/22 22:39 Discharge Ordered Location: Home alysia Problem: new alysia Symptoms: have improved alysia Condition: Stable alysia Diagnosis - Cellulitis and acute lymphangitis of other parts of limb alysia Followup: alysia - With: Private Physician - When: 2 - 3 days - Reason: Recheck today's complaints, Continuance of care, Re-evaluation by your physician Followup: alysia - With: Alexandre Whitlock MD - When: 2 - 3 days - Reason: Recheck today's complaints, Re-evaluation by your physician Discharge Instructions: - Discharge Summary Sheet alysia - Skin Abscess alysia - Cellulitis, Adult alysia - Skin Abscess, [id number] alysia - Cellulitis, Adult, [id number] [facility] Forms: - Medication Reconciliation Form [facility] - Thank You Letter [facility] - Antibiotic Education [facility] - Prescription Opioid Use [facility] Prescriptions: - Cephalexin 500 mg Oral Capsule - take 1 capsule by ORAL route every 6 hours for 10 days; 40 capsule; Refills: 0, [facility] Product Selection Permitted - Ibuprofen 600 mg Oral Tablet - take 1 tablet by ORAL route every 6 hours As needed take with food; 20 tablet; [facility] Refills: 0, Product Selection Permitted - Bactrim DS 800-160 mg Oral Tablet - take 1 tablet by ORAL route every 12 hours for 10 days; 20 tablet; Refills: 0, [facility] Product Selection Permitted Signatures: Loco Lopez MD MD cha Gibson, Lacie, RN RN lg3 Jeni Ramos RN RN ke1
--- NOTE | 2022-12-10 22:40 | ER ---
Nurse's Notes [facility] Name: Neva Reyes Age: 22 yrs Sex: Female : 2000 Arrival Date: 12/10/2022 Time: 20:58 Bed 13 Private MD: Diagnosis: Cellulitis and acute lymphangitis of other parts of limb Presentation: 12/10 21:31 Chief complaint: Patient states: my left armpit is swollen and sore to the touch for lg3 the last 2 days. Coronavirus screen: Client denies travel out of the [place] in the last 14 days. At this time, the client does not indicate any symptoms associated with coronavirus-19. Ebola Screen: No symptoms or risks identified at this time. Initial Sepsis Screen: Does the patient meet any 2 criteria? No. Patient's initial sepsis screen is negative. Does the patient have a suspected source of infection? No. Patient's initial sepsis screen is negative. Risk Assessment: Do you want to hurt yourself or someone else? Patient reports no desire to harm self or others. Onset of symptoms was December 08, 2022. 21:31 Method Of Arrival: Ambulatory lg3 21:31 Acuity: HILDA 4 lg3 Triage Assessment: 21:33 General: Appears in no apparent distress. comfortable, Behavior is calm, cooperative. lg3 Pain: Complains of pain in left armpit. EENT: No deficits noted. No signs and/or symptoms were reported regarding the EENT system. Neuro: No deficits noted. Prasad Agitation-Sedation Scale (RASS): 0 - Alert and Calm Level of Consciousness is awake, alert, obeys commands, Oriented to person, place, time, situation. Cardiovascular: No deficits noted. Denies chest pain, shortness of breath, Capillary refill < 3 seconds Clubbing of nail beds is absent JVD is absent Patient's skin is warm and dry. Respiratory: No deficits noted. Airway is patent Trachea midline Respiratory effort is even, unlabored, Respiratory pattern is regular, symmetrical. GI: No deficits noted. No signs and/or symptoms were reported involving the gastrointestinal system. Abdomen is round non-distended. : No deficits noted. No signs and/or symptoms were reported regarding the genitourinary system. Derm: swelling to left axillary area. Musculoskeletal: No deficits noted. No signs and/or symptoms reported regarding the musculoskeletal system. Circulation, motion, and sensation intact. Range of motion: intact in all extremities. 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 Flu vaccine is not up to date. - Social history:: Smoking status: Patient denies any tobacco usage or history of. Patient/guardian denies using alcohol, street drugs. - Family history:: not pertinent. Screenin:40 [facility] ED Fall Risk Assessment (Adult) History of falling in the last 3 months, ke1 including since admission No falls in past 3 months (0 pts) Confusion or Disorientation No (0 pts) Intoxicated or Sedated No (0 pts) Impaired Gait No (0 pts) Mobility Assist Device Used No (0 pt) Altered Elimination No (0 pt) Score/Fall Risk Level 0 - 2 = Low Risk. Abuse screen: Denies threats or abuse. Nutritional screening: No deficits noted. Tuberculosis screening: No symptoms or risk factors identified. 22:00 [facility] ED Fall Risk Assessment (Adult) History of falling in the last 3 months, vc1 including since admission No falls in past 3 months (0 pts) Confusion or Disorientation No (0 pts) Intoxicated or Sedated No (0 pts) Impaired Gait No (0 pts) Mobility Assist Device Used No (0 pt) Altered Elimination No (0 pt) Score/Fall Risk Level 0 - 2 = Low Risk Oriented to surroundings, Maintained a safe environment, Educated pt \T\ family on fall prevention, incl call for assistance when getting out of bed. Abuse screen: Denies threats or abuse. Vital Signs: 21:31 BP 112 / 64; Pulse 89; Resp 17; Temp 98.8(O); Pulse Ox 100% on R/A; Weight 92.99 kg lg3 (R); Height 5 ft. 3 in. (160.02 cm) (R); Pain 5/10; 23:31 BP 117 / 68; Pulse 82; Resp 17; Temp 98.7; Pulse Ox 100% ; ke1 21:31 Body Mass Index 36.31 (92.99 kg, 160.02 cm) lg3 ED Course: 20:58 Patient arrived in ED. [email or web address] 21:18 Loco Lopez MD is Attending Physician. [facility] 21:33 Triage completed. lg3 21:33 Arm band placed on right wrist. lg3 21:40 Bed in low position. Call light in reach. ke1 22:38 Alexandre Whitlock MD is Referral Physician. [facility] 23:12 Jeni Ramos, RN is Primary Nurse. ke1 23:32 No provider procedures requiring assistance completed. Patient did not have IV access ke1 during this emergency room visit. Administered Medications: 23:19 Drug: Bactrim (trimethoprim-sulfamethoxazole) (160 mg-800 mg (DS) 1 tablet Route: PO; ke1 23:31 Follow up: Response: No adverse reaction ke1 23:19 Drug: KeFLEX (cephalexin) 500 mg Route: PO; ke1 23:31 Follow up: Response: No adverse reaction ke1 23:19 Drug: Motrin (ibuprofen) 800 mg Route: PO; ke1 23:30 Follow up: Response: No adverse reaction ke1 Medication: 23:33 VIS not applicable for this client. ke1 Outcome: 22:39 Discharge ordered by . alysia 23:32 Discharged to home ambulatory. ke1 23:32 Condition: good 23:32 Discharge instructions given to patient. 23:33 Patient left the ED. ke1 Signatures: Loco Lopez MD MD cha Gibson, Lacie, RN RN lg3 Roxana Owen [email or web address] Mara Silver RN RN 1 Jeni Ramos RN RN ke1
[2022-12-10] MEDS ORDERED: IBUPROFEN 400 MG TAB ONE (23:18)
[2022-12-10] MEDS ORDERED: SMZ./TMP. 800/160 MG TABLET ONE (23:18)
[2022-12-10] MEDS ORDERED: CEPHALEXIN 250 MG CAP ONE (23:18)
[2022-12-10 23:45] VITALS: O2SAT 100
[2022-12-10 23:50] VITALS: BP 117/68; TEMP 98.7
== END 2022-12-10 23:33 | disposition home or self-care (01) ==
LOC: ER 20:54
DX: L03.112 Cellulitis of left axilla (principal); L03.122 Acute lymphangitis of left axilla; Z91.013 Allergy to seafood
CPT/HCPCS: 99283

== ENCOUNTER 2022-12-18 20:51 | Emergency (ER) | payer OTHER ==
--- OUTSIDE RECORDS SUMMARY | 2022-12-18 20:57 | XMS REPORT | Continuity of Care Document ---
:2000 Author Organization [facility] t Address [address] [place] [address] [address]. [address] [place] [address] Care Team Providers Name Role Phone NATALIIA DODSON Primary Care Physician Unavailable YOLY MEI Attending Clinician Unavailable FIDENCIO COOLEY Attending Clinician Unavailable Fidencio Cooley MD Attending Clinician Ivory Nataliia DIAMOND Attending Clinician [phone] [facility], [facility] Attending Clinician Unavailable Katrin Finn Attending Clinician [phone] NATALIIA DODSON Attending Clinician Unavailable BIANKA WAHL Attending Clinician Unavailable Bianka Wahl MD Attending Clinician [phone] Steve Jimenez MD Attending Clinician JUNIOR SANCHEZ Attending Clinician Unavailable Delroy Steele Attending Clinician Junior Sanchez DO Attending Clinician ROCKY CONRAD Attending Clinician Unavailable Rocky Conrad MD Attending Clinician Jennifer Fajardo MD Attending Clinician Amber Conde MD Attending Clinician SHABANA SANCHEZ Attending Clinician Unavailable AUDREY HAYDEN Attending Clinician Unavailable Audrey Hayden MD Attending Clinician ROSAMARIA SOSA Attending Clinician Unavailable [facility], [facility] Attending Clinician Unavailable Rosamaria Sosa PA-C Attending Clinician Doctor Unassigned, [place] Attending Clinician Unavailable Yoly Mei CNM Attending Clinician Lab, [facility] Attending Clinician Unavailable Ultrasound, Keyannadomonique Attending Clinician Unavailable Kathie Yap MD, [place] Attending Clinician [phone] LEOLA GRECO Attending Clinician Unavailable Leatha Michele MD Attending Clinician LEATHA MICHELE Attending Clinician Unavailable Paul CHRISTOPHER, Doug Yung Attending Clinician Sarah JAIN, Cecile Attending Clinician Unavailable Ely JAIN, Debra Attending Clinician Unavailable Janette Thomson MD Attending Clinician JANETTE THOMSON Attending Clinician Unavailable JANETTE THOMSON Attending Clinician Unavailable BIANKA WAHL Admitting Clinician Unavailable Bianka Wahl MD Admitting Clinician [phone] ROCKY CONRAD Admitting Clinician Unavailable Rocky Conrad MD Admitting Clinician AUDREY HAYDEN Admitting Clinician Unavailable Audrey Hayden MD Admitting Clinician Payers Payer Name Policy Type Policy Number Effective Date Expiration Date Remi leigh [facility] [id number] 2022 00:00:00 [place] OF [place] [id number] 2022 00:00:00 Problems Condition Condition Condition Status Onset Resolution Last Treating Co mments Source Name Details Category Date Date Treatment Clinician Date Disease Active 2021-11 U nivers spinal spinal 2-22 ity of headache headache 00:00: [place] 00 [facility] Branch Morbid Morbid Disease Active 2021-11 Univers obesity obesity 2-17 ity of with body with body 00:00: [facility] s mass index mass index 00 Me dical of of Branch 40.0-49.9 40.0-49.9 40 weeks 40 weeks Disease Active 2021-11 Unive rs gestation gestation 2-16 ity of of of 00:00: [place] 00 [facility] Branch Excessive Excessive Disease Active 2021-11 Uni vers weight weight 2-03 ity of gain gain 00:00: [place] affecting affecting 00 [facility] Bran ch Refused Refused Disease Active [...] of this [place] measuring measuring 00 note [facility] 5.89 x 5.89 x might be Branch 4.51 x 4.51 x different 5.55 cm 5.55 cm from the original. Noted on usg left side, follow up usg in 3/4 weeks scheduled Supervisio Supervisio Disease Active U nivers n of n of 4-29 ity of high-risk high[place] [facility] [place] Nausea and Nausea and Disease Active U nivers vomiting vomiting 4-29 ity of during during 00:00: [place] 00 [facility] Branch Obesity in Obesity in Disease [...] Stop Date Quantity Comments Source ASSERTION 2022-02-12 [facility] 00:00:00 [facility] Exposure to 2022-11-20 2022-11-30 Not sure [facility] SARS-CoV-2 00:00:00 22:21:00 [facility] (event) [place] Alcohol intake 2022-11-30 2022-11-30 [facility] 00:00:00 00:00:00 non-drinker [facility] (finding) [place] Tobacco use and 2022-06-07 2022-06-07 Smokeless tobacco Un iversity of exposure 00:00:00 00:00:00 non-user [facility] Sex Assigned At [birth year] [facility] 00:00:00 00:00:00 [facility] Smoking Status Start Date Stop Date Source Never smoked tobacco [facility] Medications Ordered Filled Start Stop Current Ordering Indication Dosage Frequency Signature Comments Components Source Medication Medication Date Date Medication? Clinician (SIG) Name Name jossie- 2021-11- No 1{tbl} 1 tablet, Univers acetaminoph 2-11 11- Oral, ONCE i ty of en-caff 21:00: 20:11 NOW, 1 [place] (ESGIC) 00 :00 dose, On Medical 50-325-40 Jeanie Branch mg tablet 1 11/11/22 tablet at 1500, Routine butalbital- 2021-11- No 1{tbl} 1 tablet, Univers acetaminoph 2-22 - Oral, ity of en-caff 00:15: 23:37 ONCE, 1 [place] (ESGIC) 00 :00 dose, On Medical 50-325-40 [...] of therapy: 72 hours butalbital- 2021-11 Yes [id number] 1{tbl} Take 1 Univers acetaminoph 2-22 tablet by ity of en-caff 00:00: mouth [place] (ESGIC) 00 every 6 Medical 50-325-40 (six) Branch mg tablet hours. butalbital- 2021-11 Yes [id number] 1{tbl} Take 1 Univers acetaminoph 2-22 tablet by ity of en-caff 00:00: mouth [place] (ESGIC) 00 every 6 Medical 50-325-40 (six) Branch mg tablet hours. butalbital- 2021-11 Yes [id number] 1{tbl} Take 1 Univers acetaminoph 2-22 tablet by ity of en-caff 00:00: mouth [place] (ESGIC) 00 every 6 Medical 50-325-40 (six) Branch mg tablet hours. butalbital- 2021-11 Yes [id number] 1{tbl} Take 1 Univers acetaminoph 2-22 tablet by ity of en-caff 00:00: mouth [place] (ESGIC) 00 every 6 Medical 50-325-40 (six) Branch mg tablet hours. butalbital2021-11 Yes [id number] 1{tbl} Take 1 Univers acetaminoph 2-22 tablet [...] 11/10/22 at 1630, [place] cephALEXin 2021-11- Yes [id number] 500mg Take 1 Univers (KEFLEX) 01-11 capsule by ity of 500 mg 00:00: 05:59 mouth in [place] capsule 00 :00 the Medical morning Branch and 1 capsule at noon and 1 capsule in the evening. Do all this for 7 days. cephALEXin 2021-11- Yes [id number] 500mg Take 1 Univers (KEFLEX) 2-21 -29 capsule by ity of 500 mg 00:00: 05:59 mouth in [place] capsule 00 :00 the Medical morning Branch and 1 capsule at noon and 1 capsule in the evening. Do all this for 7 days. cephALEXin 2021-11- Yes [id number] 500mg Take 1 Univers (KEFLEX) 2-21 - capsule by ity of 500 mg 00:00: 05:59 mouth in [place] capsule 00 :00 the Medical morning Branch and 1 capsule at noon and 1 capsule in the evening. Do all this for 7 days. cephALEXin 2021-11- Yes [id number] 500mg Take 1 Univers (KEFLEX) 2-10 11- capsule by ity of 500 mg 00:00: 05:59 mouth in [place] capsule 00 :00 the Medical morning Branch and 1 capsule at noon and 1 capsule in the evening. Do all this for 7 days. 2021-11 Yes [id number] 1{tbl} Take 1 Univers vitamin 2-19 tablet by ity of w/FA tablet 00:00: mouth in [place] 00 the Medical morning. Branch docusate 2021-11 Yes [id number] 200mg Take 2 U nivers 100 mg 2-19 capsules ity of capsule 00:00: by mouth [place] 00 once daily Medical as needed Branch for Constipati on. ferrous 2021-11 Yes [id number] 325mg Take 1 Un loli sulfate 325 2-19 tablet by ity of mg (65 mg 00:00: [place] iron[place] 00 the Medical tablet morning Branch and 1 tablet in the evening. ibuprofen 2021-11 Yes [id number] 600mg Take 1 Univers 600 mg 2-19 tablet by ity of tablet 00:00: mouth [place] 00 every 6 Medical (six) Branch hours as needed (Pain). Take with food or milk. 2021-11 Yes [id number] 1{tbl} Take 1 Univers vitamin 2-19 tablet by ity of w/FA tablet 00:00: mouth in [place] 00 the Medical morning. Branch docusate 2021-11 Yes [id number] 200mg Take 2 U nivers 100 mg 2-19 capsules ity of capsule 00:00: by mouth [place] 00 once daily Medical as needed Branch for Constipati on. ferrous 2021-11 Yes [id number] 325mg Take 1 Un loli sulfate 325 2-19 tablet by ity of mg (65 mg 00:00: [place] iron[place] 00 the Medical tablet morning Branch and 1 tablet in the evening. ibuprofen 2021-11 Yes [id number] 600mg Take 1 Univers 600 mg 2-19 tablet by ity of tablet 00:00: mouth [place] 00 every 6 Medical (six) Branch hours as needed (Pain). Take with food or milk. 2021-11 Yes [id number] 1{tbl} Take 1 Univers vitamin 2-19 tablet by ity of w/FA tablet 00:00: mouth in [place] 00 the Medical morning. Branch docusate 2021-11 Yes [id number] 200mg Take 2 U nivers 100 mg 2-19 capsules ity of capsule 00:00: by mouth [place] 00 once daily Medical as needed Branch for Constipati on. ferrous 2021-11 Yes [id number] 325mg Take 1 Un loli sulfate 325 2-19 tablet by ity of mg (65 mg 00:00: [place] iron[place] 00 the Medical tablet morning Branch and 1 tablet in the evening. ibuprofen 2021-11 Yes [id number] 600mg Take 1 Univers 600 mg 2-19 tablet by ity of tablet 00:00: mouth [place] 00 every 6 Medical (six) Branch hours as needed (Pain). Take with food or milk. 2021-11 Yes [id number] 1{tbl} Take 1 Univers vitamin 2-19 tablet by ity of w/FA tablet 00:00: mouth in [place] 00 the Medical morning. Branch docusate 2021-11 Yes [id number] 200mg Take 2 U nivers 100 mg 2-19 capsules ity of capsule 00:00: by mouth [place] 00 once daily Medical as needed Branch for Constipati on. ferrous 2021-11 Yes [id number] 325mg Take 1 Un loli sulfate 325 2-19 tablet by ity of mg (65 mg 00:00: [place] iron[place] 00 the Medical tablet morning Branch and 1 tablet in the evening. ibuprofen 2021-11 Yes [id number] 600mg Take 1 Univers 600 mg 2-19 tablet by ity of tablet 00:00: mouth [place] 00 every 6 Medical (six) Branch hours as needed (Pain). Take with food or milk. 2021-11 Yes [id number] 1{tbl} Take 1 Univers vitamin 2-19 tablet by ity of w/FA tablet 00:00: mouth in [place] 00 the Medical morning. Branch docusate 2021-11 Yes [id number] 200mg Take 2 U nivers 100 mg 2-19 capsules ity of capsule 00:00: by mouth [place] 00 once daily Medical as needed Branch for Constipati on. ferrous 2021-11 Yes [id number] 325mg Take 1 Un loli sulfate 325 2-19 tablet by ity of mg (65 mg 00:00: mouth [place] iron[place] 00 the Medical tablet morning Branch and 1 tablet in the evening. ibuprofen 2021-11 Yes [id number] 600mg Take 1 Univers 600 mg 2-19 tablet by ity of tablet 00:00: mouth [place] 00 every 6 Medical (six) Branch hours as needed (Pain). Take with food or milk. 2021-11 Yes [id number] 1{tbl} Take 1 Univers vitamin 2-19 tablet by ity of w/FA tablet 00:00: mouth in [place] 00 the Medical morning. Branch docusate 2021-11 Yes [id number] 200mg Take 2 U nivers 100 mg 2-19 capsules ity of capsule 00:00: by mouth [place] 00 once daily Medical as needed Branch for Constipati on. ferrous 2021-11 Yes [id number] 325mg Take 1 Un loli sulfate 325 2-19 tablet by ity of mg (65 mg 00:00: mouth [place] iron[place] 00 the Medical tablet morning Branch and 1 tablet in the evening. ibuprofen 2021-11 Yes [id number] 600mg Take 1 Univers 600 mg 2-19 tablet by ity of tablet 00:00: mouth [place] 00 every 6 Medical (six) Branch hours as needed (Pain). Take with food or milk. 2021-11 Yes [id number] 1{tbl} Take 1 Univers vitamin 2-19 tablet by ity of w/FA tablet 00:00: mouth in [place] 00 the Medical morning. Branch docusate 2021-11 Yes [id number] 200mg Take 2 U nivers 100 mg 2-19 capsules ity of capsule 00:00: by mouth [place] 00 once daily Medical as needed Branch for Constipati on. ferrous 2021-11 Yes [id number] 325mg Take 1 Un loli sulfate 325 2-19 tablet by ity of mg (65 mg 00:00: mouth [place] iron[place] 00 the Medical tablet morning Branch and 1 tablet in the evening. ibuprofen 2021-11 Yes [id number] 600mg Take 1 Univers 600 mg 2-19 tablet by ity of tablet 00:00: mouth [place] 00 every 6 Medical (six) Branch hours as needed (Pain). Take with food or milk. 2021-11 Yes [id number] 1{tbl} Take 1 Univers vitamin 2-19 tablet by ity of w/FA tablet 00:00: mouth in [place] 00 the Medical morning. Branch docusate 2021-11 Yes [id number] 200mg Take 2 U nivers 100 mg 2-19 capsules ity of capsule 00:00: by mouth [place] 00 once daily Medical as needed Branch for Constipati on. ferrous 2021-11 Yes [id number] 325mg Take 1 Un loli sulfate 325 2-19 tablet by ity of mg (65 mg 00:00: [place] iron[place] 00 the Medical tablet morning Branch and 1 tablet in the evening. ibuprofen 2021-11 Yes [id number] 600mg Take 1 Univers 600 mg 2-19 [...] IV Push, ity of (PF)) 10:46: Q8HPRN, [place] injection 4 11 Starting Medi natalie mg [...] 11 Starting Medi natalie tablet 1 on [place] Branch tablet 11/07/22 at 0446, Until Discontinu [...] 25 11 Starting Medica l mg on [facility] 11/07/22 at 0446, Until Discontinu ed, Routine, Sleep, Itching ondansetron 2021-11 Yes 4mg 4 mg, Slow Univers (ZOFRAN 2-18 IV Push, ity of (PF)) 10:46: Q8HPRN, [place] injection 4 11 Starting Medi natalie mg on [place] Branch 11/07/22 at 0446, Until Discontinu ed, Routine, Nausea and Vomiting (N/V) bisacodyL 2021-11 Yes 10mg 10 mg, Univer s (DULCOLAX) 2-18 Rectal, ity of suppository 10:46: QDAILYPRN, [place] 10 mg 11 Starting Medical on [place] Branch 11/07/22 at 0446, Until Discontinu ed, Routine, Constipati on simethicone 2021-11 Yes 160mg 160 mg, Un loli (GAS RELIEF 2-18 Oral, ity of (SIMETHICON 10:46: PC+HSPRN, [place] E)) 11 Starting Medical chewable on [facility] tablet 160 11/07/22 mg at 0446, Until Discontinu ed, Routine, Gas docusate 2021-11 Yes 200mg 200 mg, Unive rs (COLACE) 2-18 Oral, ity of capsule 200 10:46: QDAILYPRN, [place] mg 11 Starting Medical on [place] Branch 11/07/22 at 0446, Until Discontinu ed, Routine, Constipati on magnesium 2021-11 Yes 30mL 30 mL, Univer s hydroxide 2-18 Oral, ity of (MILK OF 10:46: QDAILYPRN, [place] MAGNESIA) 11 Starting Medica l 400 mg/5 mL on [facility] suspension 11/07/22 30 mL at 0446, Until [...] [place] mg 38 Starting Medical on [facility] 11/07/22 at 0034, Until Discontinu ed, Routine, Pain (scale 1-3) ibuprofen 2021-11 Yes 600mg 600 mg, Univ ers (IBU) 2-18 Oral, ity of tablet 600 06:34: Q6HPRN, [place] mg 38 Starting Medical on [facility] 11/07/22 at 0034, Until Discontinu ed, Routine, Pain (scale 1-3) oxytocin 2021-11 Yes 600mL/h 600 mL/hr, Univers (PITOCIN) 2-18 IV ity of 30 units in 06:34: Infusion, [place] NS 500 mL 25 PRN, For Medica l IV infusion post Branch delivery uterine atony., Starting on [place] 11/07/[address] art at 600 [...] Surgical Prophylaxi s
Marie rgical Prophylaxi s: GEOSPATIAL IMAGERY INTELLIGENCE ANALYST
Duration of therapy: within 24 hours of [...] Surgical Prophylaxi s
Surgi natalie Prophylaxi s: GEOSPATIAL IMAGERY INTELLIGENCE ANALYST
Duration of therapy: within 24 hours of [...] it y of 0.2 % 05:35: PRN, [place] (NAROPIN 00 Starting Medical (PF)) on Tue Branch epidural 11/05/22 infusion at 2335, Until Discontinu ed, Routine, Intra-op lidocaine-e 2021-11 Yes Intravenou Univers pinephrine 2-17 s, ONCE ity of (XYLOCAINE 05:30: INTRA [place] W/EPINEPHRI 00 PROCEDURE, Mn dical NE) 2 Starting Branch %-1:200,000 on [...] mg 00 :00 dose, On Medical Fri [place] 11/05/22 at 1815, Routine butorphanol 2021-11- No [...] ed, Routine, Surgery/Pr ocedure tolnaftate 2021-11 Yes [id number] Apply to Univers (TINACTIN) 1-11 area(s) 2 ity of 1 % cream 00:00: (two) [place] 00 times Medical daily. Branch Until rash clears plus 2 more weeks tolnaftate 2021-11 Yes [id number] Apply to Univers (TINACTIN) 1-11 area(s) 2 ity of 1 % cream 00:00: (two) [place] 00 times Medical daily. Branch Until rash clears plus 2 more weeks tolnaftate 2021-11 Yes [id number] Apply to Univers (TINACTIN) 1-11 area(s) 2 ity of 1 % cream 00:00: (two) [place] 00 times Medical daily. Branch Until rash clears plus 2 more weeks tolnaftate 2021-11 Yes [id number] Apply to Univers (TINACTIN) 1-11 area(s) 2 ity of 1 % cream 00:00: (two) [place] 00 times Medical daily. Branch Until rash clears plus 2 more weeks tolnaftate 2021-11 Yes [id number] Apply to Univers (TINACTIN) 1-11 area(s) 2 ity of 1 % cream 00:00: (two) [place] 00 times Medical daily. Branch Until rash clears plus 2 more weeks tolnaftate 2021-11 Yes [id number] Apply to Univers (TINACTIN) 1-11 area(s) 2 ity of 1 % cream 00:00: (two) [place] 00 times Medical daily. Branch Until rash clears plus 2 more weeks tolnaftate 2021-11 Yes [id number] Apply to Univers (TINACTIN) 1-11 area(s) 2 ity of 1 % cream 00:00: (two) [place] 00 times Medical daily. Branch Until rash clears plus 2 more weeks tolnaftate 2021-11 Yes [id number] Apply to Univers (TINACTIN) 1-11 area(s) 2 ity of 1 % cream 00:00: (two) [place] 00 times Medical daily. Branch Until rash clears plus 2 more weeks tolnaftate 2021-11 Yes [id number] Apply to Univers (TINACTIN) 1-11 area(s) 2 ity of 1 % cream 00:00: (two) [place] 00 times Medical daily. Branch Until rash clears plus 2 more weeks tolnaftate 2021-11 Yes [id number] Apply to Univers (TINACTIN) 1-11 area(s) 2 ity of 1 % cream 00:00: (two) [place] 00 times Medical daily. Branch Until rash clears plus 2 more weeks tolnaftate 2021-11 Yes [id number] Apply to Univers (TINACTIN) 1-11 area(s) 2 ity of 1 % cream 00:00: (two) [place] 00 times Medical daily. Branch Until rash clears plus 2 more weeks tolnaftate 2021-11 Yes [id number] Apply to Univers (TINACTIN) 1-11 area(s) 2 ity of 1 % cream 00:00: (two) [place] 00 times Medical daily. Branch Until rash clears plus 2 more weeks tolnaftate 2021-11 Yes [id number] Apply to Univers (TINACTIN) 1-11 area(s) 2 ity of 1 % cream 00:00: (two) [place] 00 times Medical daily. Branch Until rash clears plus 2 more weeks tolnaftate 2021-11 Yes [id number] Apply to Univers (TINACTIN) 1-11 area(s) 2 ity of 1 % cream 00:00: (two) [place] 00 times Medical daily. Branch Until rash clears plus 2 more weeks tolnaftate 2021-11 Yes [id number] Apply to Univers (TINACTIN) 1-11 area(s) 2 ity of 1 % cream 00:00: (two) [place] 00 times Medical daily. Branch Until rash clears plus 2 more weeks tolnaftate 2021-11 Yes [id number] Apply to Univers (TINACTIN) 1-11 area(s) 2 ity of 1 % cream 00:00: (two) [place] 00 times Medical daily. Branch Until rash clears plus 2 more weeks tolnaftate 2021-11 Yes [id number] Apply to Univers (TINACTIN) 1-11 area(s) 2 ity of 1 % cream 00:00: (two) [place] 00 times Medical daily. Branch Until rash clears plus 2 more weeks tolnaftate 2021-11 Yes [id number] Apply to Univers (TINACTIN) 1-11 area(s) 2 ity of 1 % cream 00:00: (two) [place] 00 times Medical daily. Branch Until rash clears plus 2 more weeks tolnaftate 2021-11 Yes [id number] Apply to Univers (TINACTIN) 1-11 area(s) 2 ity of 1 % cream 00:00: (two) [place] 00 times Medical daily. Branch Until rash clears plus 2 more weeks ascorbic 2021-0 Yes [id number] 500mg Take 1 U nivers acid, 9-16 tablet by ity of vitamin C, 00:00: mouth in [place] 500 mg 00 the Medical tablet morning Branch and 1 tablet at noon and 1 tablet in the evening. ferrous 0 Yes [id number] 325mg Take 1 Un loli sulfate 325 9-16 tablet by ity of mg (65 mg 00:00: mouth [place] iron[place] 00 the Medical tablet morning Branch and 1 tablet in the evening. ascorbic 2021-0 Yes [id number] 500mg Take 1 U nivers acid, 9-16 tablet by ity of vitamin C, 00:00: mouth in [place] 500 mg 00 the Medical tablet morning Branch and 1 tablet at noon and 1 tablet in the evening. ferrous 0 Yes [id number] 325mg Take 1 Un loli sulfate 325 9-16 tablet by ity of mg (65 mg 00:00: mouth [place] iron[place] 00 the Medical tablet morning Branch and 1 tablet in the evening. ascorbic 2021-0 Yes [id number] 500mg Take 1 U nivers acid, 9-16 tablet by ity of vitamin C, 00:00: mouth in [place] 500 mg 00 the Medical tablet morning Branch and 1 tablet at noon and 1 tablet in the evening. ferrous 2021-0 Yes [id number] 325mg Take 1 Un loli sulfate 325 9-16 tablet by ity of mg (65 mg 00:00: mouth [place] iron[place] 00 the Medical tablet morning Branch and 1 tablet in the evening. ascorbic 2021-0 Yes [id number] 500mg Take 1 U nivers acid, 9-16 tablet by ity of vitamin C, 00:00: mouth in [place] 500 mg 00 the Medical tablet morning Branch and 1 tablet at noon and 1 tablet in the evening. ferrous 2021-0 Yes [id number] 325mg Take 1 Un loli sulfate 325 9-16 tablet by ity of mg (65 mg 00:00: mouth [place] iron[place] 00 the Medical tablet morning Branch and 1 tablet in the evening. ascorbic 0 Yes [id number] 500mg Take 1 U nivers acid, 9-16 tablet by ity of vitamin C, 00:00: mouth in [place] 500 mg 00 the Medical tablet morning Branch and 1 tablet at noon and 1 tablet in the evening. ferrous 2021-0 Yes [id number] 325mg Take 1 Un loli sulfate 325 9-16 tablet by ity of mg (65 mg 00:00: mouth [place] iron[place] 00 the Medical tablet morning Branch and 1 tablet in the evening. ascorbic 2021-0 Yes [id number] 500mg Take 1 U nivers acid, 9-16 tablet by ity of vitamin C, 00:00: mouth in [place] 500 mg 00 the Medical tablet morning Branch and 1 tablet at noon and 1 tablet in the evening. ferrous 2021-0 Yes [id number] 325mg Take 1 Un loli sulfate 325 9-16 tablet by ity of mg (65 mg 00:00: mouth [place] iron[place] 00 the Medical tablet morning Branch and 1 tablet in the evening. ascorbic 2022-0 Yes [id number] 500mg Take 1 U nivers acid, 9-16 tablet by ity of vitamin C, 00:00: mouth in [place] 500 mg 00 the Medical tablet morning Branch and 1 tablet at noon and 1 tablet in the evening. ferrous 2021-0 Yes [id number] 325mg Take 1 Un loli sulfate 325 9-16 tablet by ity of mg (65 mg 00:00: mouth [place] iron[place] 00 the Medical tablet morning Branch and 1 tablet in the evening. ascorbic 2021-0 Yes [id number] 500mg Take 1 U nivers acid, 9-16 tablet by ity of vitamin C, 00:00: mouth in [place] 500 mg 00 the Medical tablet morning Branch and 1 tablet at noon and 1 tablet in the evening. ferrous 0 Yes [id number] 325mg Take 1 Un loli sulfate 325 9-16 tablet by ity of mg (65 mg 00:00: mouth [place] iron[place] 00 the Medical tablet morning Branch and 1 tablet in the evening. ascorbic 2021-0 Yes [id number] 500mg Take 1 U nivers acid, 9-16 tablet by ity of vitamin C, 00:00: mouth in [place] 500 mg 00 the Medical tablet morning Branch and 1 tablet at noon and 1 tablet in the evening. ferrous 2021-0 Yes [id number] 325mg Take 1 Un loli sulfate 325 9-16 tablet by ity of mg (65 mg 00:00: mouth [place] 00 the Medical tablet morning Branch and 1 tablet in the evening. ascorbic 2021-0 Yes [id number] 500mg Take 1 U nivers acid, 9-16 tablet by ity of vitamin C, 00:00: mouth in [place] 500 mg 00 the Medical tablet morning Branch and 1 tablet at noon and 1 tablet in the evening. ferrous 2021-0 Yes [id number] 325mg Take 1 Un loli sulfate 325 9-16 tablet by ity of mg (65 mg 00:00: mouth [place] iron[place] 00 the Medical tablet morning Branch and 1 tablet in the evening. ascorbic 2021-0 Yes [id number] 500mg Take 1 U nivers acid, 9-16 tablet by ity of vitamin C, 00:00: mouth in [place] 500 mg 00 the Medical tablet morning Branch and 1 tablet at noon and 1 tablet in the evening. ferrous 2021-0 Yes [id number] 325mg Take 1 Un loli sulfate 325 9-16 tablet by ity of mg (65 mg 00:00: mouth [place] iron[place] 00 the Medical tablet morning Branch and 1 tablet in the evening. ascorbic 2021-0 Yes [id number] 500mg Take 1 U nivers acid, 9-16 tablet by ity of vitamin C, 00:00: mouth in [place] 500 mg 00 the Medical tablet morning Branch and 1 tablet at noon and 1 tablet in the evening. ferrous 2021-0 Yes [id number] 325mg Take 1 Un loli sulfate 325 9-16 tablet by ity of mg (65 mg 00:00: mouth [place] 00 the Medical tablet morning Branch and 1 tablet in the evening. ascorbic 0 Yes [id number] 500mg Take 1 U nivers acid, 9-16 tablet by ity of vitamin C, 00:00: mouth in [place] 500 mg 00 the Medical tablet morning Branch and 1 tablet at noon and 1 tablet in the evening. ferrous 0 Yes [id number] 325mg Take 1 Un loli sulfate 325 9-16 tablet by ity of mg (65 mg 00:00: [place] 00 the Medical tablet morning Branch and 1 tablet in the evening. ascorbic 0 Yes [id number] 500mg Take 1 U nivers acid, 9-16 tablet by ity of vitamin C, 00:00: mouth in [place] 500 mg 00 the Medical tablet morning Branch and 1 tablet at noon and 1 tablet in the evening. ferrous 0 Yes [id number] 325mg Take 1 Un loli sulfate 325 9-16 tablet by it[facility] mg (65 mg [place] [facility] [place] [facility] tablet morning Branch and 1 tablet in the evening. ascorbic 0 Yes [id number] 500mg Take 1 U nivers acid, 9-16 tablet by ity of vitamin C, 00:00: mouth [place] 500 mg 00 the Medical tablet morning Branch and 1 tablet at noon and 1 tablet in the evening. ferrous 0 Yes [id number] 325mg Take 1 Un loli sulfate 325 9-16 tablet by [facility] mg (65 mg [place] [facility] tablet morning Branch and 1 tablet in the evening. ascorbic 2022-0 Yes [id number] 500mg Take 1 U nivers acid, 9-16 tablet by ity of vitamin C, 00:00: mouth [place] 500 mg 00 the Medical tablet morning Branch and 1 tablet at noon and 1 tablet in the evening. ferrous 2021-0 Yes [id number] 325mg Take 1 Un loli sulfate 325 9-16 tablet by [facility] mg (65 mg [place]: [place] [facility] tablet morning Branch and 1 tablet in the evening. ascorbic 0 Yes [id number] 500mg Take 1 U nivers acid, 9-16 tablet by ity of vitamin C, 00:00: mouth [place] 500 mg 00 the Medical tablet morning Branch and 1 tablet at noon and 1 tablet in the evening. ferrous 2021-0 Yes [id number] 325mg Take 1 Un loli sulfate 325 9-16 tablet by [facility] mg (65 mg [place]: [place] 00 the Medical tablet morning Branch and 1 tablet in the evening. ascorbic 0 Yes [id number] 500mg Take 1 U nivers acid, 9-16 tablet by ity of vitamin C, 00:00: mouth [place] 500 mg 00 the Medical tablet morning Branch and 1 tablet at noon and 1 tablet in the evening. ferrous 2021-0 Yes [id number] 325mg Take 1 Un loli sulfate 325 9-16 tablet by [facility] mg (65 mg [place]: [place] the [facility] tablet morning Branch and 1 tablet in the evening. ascorbic 2021-0 Yes [id number] 500mg Take 1 U nivers acid, 9-16 tablet by ity of vitamin C, 00:00: mouth [place] 500 mg 00 the Medical tablet morning Branch and 1 tablet at noon and 1 tablet in the evening. ferrous 2021-0 Yes [id number] 325mg Take 1 Un loli sulfate 325 9-16 tablet by [facility] mg (65 mg 00:00: [place] 00 the Medical tablet morning Branch and 1 tablet in the evening. ascorbic 2021-0 Yes [id number] 500mg Take 1 U nivers acid, 9-16 tablet by ity of vitamin C, 00:00: mouth [place] 500 mg 00 the Medical tablet morning Branch and 1 tablet at noon and 1 tablet in the evening. ferrous 2021-0 Yes [id number] 325mg Take 1 Un loli sulfate 325 9-16 tablet by [facility] mg (65 mg [place]: [place] 00 the Medical tablet morning Branch and 1 tablet in the evening. ascorbic 2021-0 Yes [id number] 500mg Take 1 U nivers acid, 9-16 tablet by ity of vitamin C, 00:00: mouth [place] 500 mg 00 the Medical tablet morning Branch and 1 tablet at noon and 1 tablet in the evening. ferrous 2021-0 Yes [id number] 325mg Take 1 Un loli sulfate 325 9-16 tablet by [facility] mg (65 mg 00:00: [place] 00 the Medical tablet morning Branch and 1 tablet in the evening. ascorbic 2021-0 Yes [id number] 500mg Take 1 U nivers acid, 9-16 tablet by ity of vitamin C, 00:00: mouth [place] 500 mg 00 the Medical tablet morning Branch and 1 tablet at noon and 1 tablet in the evening. ferrous 2021-0 Yes [id number] 325mg Take 1 Un loli sulfate 325 9-16 tablet by [facility] mg (65 mg 00:00: [place] 00 the Medical tablet morning Branch and 1 tablet in the evening. ascorbic 0 Yes [id number] 500mg Take 1 U nivers acid, 9-16 tablet by ity of vitamin C, 00:00: mouth [place] 500 mg 00 the Medical tablet morning Branch and 1 tablet at noon and 1 tablet in the evening. ferrous 2021-0 Yes [id number] 325mg Take 1 Un loli sulfate 325 9-16 tablet by [facility] mg (65 mg 00:00: [place] 00 the Medical tablet morning Branch and 1 tablet in the evening. ascorbic 2021-0 Yes [id number] 500mg Take 1 U nivers acid, 9-16 tablet by ity of vitamin C, 00:00: mouth [place] 500 mg 00 the Medical tablet morning Branch and 1 tablet at noon and 1 tablet in the evening. ferrous 2021-0 Yes [id number] 325mg Take 1 Un loli sulfate 325 9-16 tablet by [facility] mg (65 mg 00:00: [place] 00 the Medical tablet morning Branch and 1 tablet in the evening. ascorbic 2-0 Yes [id number] 500mg Take 1 U nivers acid, 9-16 tablet by ity of vitamin C, 00:00: mouth [place] 500 mg 00 the Medical tablet morning Branch and 1 tablet at noon and 1 tablet in the evening. ferrous 2021-0 Yes [id number] 325mg Take 1 Un loli sulfate 325 9-16 tablet by [facility] mg (65 mg 00:00: [place] 00 the Medical tablet morning Branch and 1 tablet in the evening. proMETHazin 2021-0 Yes [id number] 25mg Take 1 Univers e 25 mg 4-29 tablet by ity of tablet 00:00: mouth [place] 00 every 6 Medical (six) Branch hours as needed for Nausea and Vomiting (N/V). PNV 67-iron 2021-0 Yes [id number] 1{each} Take 1 Univers ps-folate 4-29 Each by ity of no.1-dha 00:00: mouth [place] (VITAFOL 00 daily. Medical ULTRA) 29 Branch mg iron- 1 mg-200 mg Cap proMETHazin 2021-0 Yes [id number] 25mg Take 1 Univers e 25 mg 4-29 tablet by ity of tablet 00:00: mouth [place] 00 every 6 Medical (six) Branch hours as needed for Nausea and Vomiting (N/V). PNV 67-iron 2021-0 Yes [id number] 1{each} Take 1 Univers ps-folate 4-29 Each by ity of no.1-dha 00:00: mouth [place] (VITAFOL 00 daily. Medical ULTRA) 29 Branch mg iron- 1 mg-200 mg Cap proMETHazin 2021-0 Yes [id number] 25mg Take 1 Univers e 25 mg 4-29 tablet by ity of tablet 00:00: mouth [place] 00 every 6 Medical (six) Branch hours as needed for Nausea and Vomiting (N/V). PNV 67-iron 2021-0 Yes [id number] 1{each} Take 1 Univers ps-folate 4-29 Each by ity of no.1-dha 00:00: mouth [place] (VITAFOL 00 daily. Medical ULTRA) 29 Branch mg iron- 1 mg-200 mg Cap proMETHazin 2-0 Yes [id number] 25mg Take 1 Univers e 25 mg 4-29 tablet by ity of tablet 00:00: mouth [place] 00 every 6 Medical (six) Branch hours as needed for Nausea and Vomiting (N/V). PNV 67-iron 2022-0 Yes [id number] 1{each} Take 1 Univers ps-folate 4-29 Each by ity of no.1-dha 00:00: mouth [place] (VITAFOL 00 daily. Medical ULTRA) 29 Branch mg iron- 1 mg-200 mg Cap proMETHazin 2022-0 Yes [id number] 25mg Take 1 Univers e 25 mg 4-29 tablet by ity of tablet 00:00: mouth [place] 00 every 6 Medical (six) Branch hours as needed for Nausea and Vomiting (N/V). PNV 67-iron 2022-0 Yes [id number] 1{each} Take 1 Univers ps-folate 4-29 Each by ity of no.1-dha 00:00: mouth [place] (VITAFOL 00 daily. Medical ULTRA) 29 Branch mg iron- 1 mg-200 mg Cap proMETHazin 2022-0 Yes [id number] 25mg Take 1 Univers e 25 mg 4-29 tablet by ity of tablet 00:00: mouth [place] 00 every 6 Medical (six) Branch hours as needed for Nausea and Vomiting (N/V). PNV 67-iron 2022-0 Yes [id number] 1{each} Take 1 Univers ps-folate 4-29 Each by ity of no.1-dha 00:00: mouth [place] (VITAFOL 00 daily. Medical ULTRA) 29 Branch mg iron- 1 mg-200 mg Cap proMETHazin 2022-0 Yes [id number] 25mg Take 1 Univers e 25 mg 4-29 tablet by ity of tablet 00:00: mouth [place] 00 every 6 Medical (six) Branch hours as needed for Nausea and Vomiting (N/V). PNV 67-iron 2022-0 Yes [id number] 1{each} Take 1 Univers ps-folate 4-29 Each by ity of no.1-dha 00:00: mouth [place] (VITAFOL 00 daily. Medical ULTRA) 29 Branch mg iron- 1 mg-200 mg Cap proMETHazin 2022-0 Yes [id number] 25mg Take 1 Univers e 25 mg 4-29 tablet by ity of tablet 00:00: mouth [place] 00 every 6 Medical (six) Branch hours as needed for Nausea and Vomiting (N/V). PNV 67-iron 2022-0 Yes [id number] 1{each} Take 1 Univers ps-folate 4-29 Each by ity of no.1-dha 00:00: mouth [place] (VITAFOL 00 daily. Medical ULTRA) 29 Branch mg iron- 1 mg-200 mg Cap proMETHazin 2-0 Yes [id number] 25mg Take 1 Univers e 25 mg 4-29 tablet by ity of tablet 00:00: mouth [place] 00 every 6 Medical (six) Branch hours as needed for Nausea and Vomiting (N/V). PNV 67-iron 2022-0 Yes [id number] 1{each} Take 1 Univers ps-folate 4-29 Each by ity of no.1-dha 00:00: mouth [place] (VITAFOL 00 daily. Medical ULTRA) 29 Branch mg iron- 1 mg-200 mg Cap proMETHazin 2-0 Yes [id number] 25mg Take 1 Univers e 25 mg 4-29 tablet by ity of tablet 00:00: mouth [place] 00 every 6 Medical (six) Branch hours as needed for Nausea and Vomiting (N/V). PNV 67-iron 2022-0 Yes [id number] 1{each} Take 1 Univers ps-folate 4-29 Each by ity of no.1-dha 00:00: mouth [place] (VITAFOL 00 daily. Medical ULTRA) 29 Branch mg iron- 1 mg-200 mg Cap proMETHazin 2-0 Yes [id number] 25mg Take 1 Univers e 25 mg 4-29 tablet by ity of tablet 00:00: mouth [place] 00 every 6 Medical (six) Branch hours as needed for Nausea and Vomiting (N/V). PNV 67-iron 2022-0 Yes [id number] 1{each} Take 1 Univers ps-folate 4-29 Each by ity of no.1-dha 00:00: mouth [place] (VITAFOL 00 daily. Medical ULTRA) 29 Branch mg iron- 1 mg-200 mg Cap proMETHazin 2022-0 Yes [id number] 25mg Take 1 Univers e 25 mg 4-29 tablet by ity of tablet 00:00: mouth [place] 00 every 6 Medical (six) Branch hours as needed for Nausea and Vomiting (N/V). PNV 67-iron 2022-0 Yes [id number] 1{each} Take 1 Univers ps-folate 4-29 Each by ity of no.1-dha 00:00: mouth [place] (VITAFOL 00 daily. Medical ULTRA) 29 Branch mg iron- 1 mg-200 mg Cap PNV 67-iron 2021-0 Yes [id number] 1{each} Take 1 Univers ps-folate 4-29 Each by ity of no.1-dha 00:00: mouth [place] (VITAFOL 00 daily. Medical ULTRA) 29 Branch mg iron- 1 mg-200 mg Cap PNV 67-iron 2021-0 Yes [id number] 1{each} Take 1 Univers ps-folate 4-29 Each by ity of no.1-dha 00:00: mouth [place] (VITAFOL 00 daily. Medical ULTRA) 29 Branch mg iron- 1 mg-200 mg Cap PNV 67-iron 2021-0 Yes [id number] 1{each} Take 1 Univers ps-folate 4-29 Each by ity of no.1-dha 00:00: mouth [place] (VITAFOL 00 daily. Medical ULTRA) 29 Branch mg iron- 1 mg-200 mg Cap PNV 67-iron 2021-0 Yes [id number] 1{each} Take 1 Univers ps-folate 4-29 Each by ity of no.1-dha 00:00: mouth [place] (VITAFOL 00 daily. Medical ULTRA) 29 Branch mg iron- 1 mg-200 mg Cap PNV 67-iron 2021-0 Yes [id number] 1{each} Take 1 Univers ps-folate 4-29 Each by ity of no.1-dha 00:00: mouth [place] (VITAFOL 00 daily. Medical ULTRA) 29 Branch mg iron- 1 mg-200 mg Cap PNV 67-iron 2021-0 Yes [id number] 1{each} Take 1 Univers ps-folate 4-29 Each by ity of no.1-dha 00:00: mouth [place] (VITAFOL 00 daily. Medical ULTRA) 29 Branch mg iron- 1 mg-200 mg Cap PNV 67-iron 2-0 Yes [id number] 1{each} Take 1 Univers ps-folate 4-29 Each by ity of no.1-dha 00:00: mouth [place] (VITAFOL 00 daily. Medical ULTRA) 29 Branch mg iron- 1 mg-200 mg Cap PNV 67-iron 2-0 Yes [id number] 1{each} Take 1 Univers ps-folate 4-29 Each by ity of no.1-dha 00:00: mouth [place] (VITAFOL 00 daily. Medical ULTRA) 29 Branch mg iron- 1 mg-200 mg Cap PNV 67-iron Yes [id number] 1{each} Take 1 Univers ps-folate 4-29 Each by ity of no.1-dha 00:00: mouth [place] (VITAFOL 00 daily. Medical ULTRA) 29 Branch mg iron- 1 mg-200 mg Cap PNV 67-iron Yes [id number] 1{each} Take 1 Univers ps-folate 4-29 Each by ity of no.1-dha 00:00: mouth [place] (VITAFOL 00 daily. Medical ULTRA) 29 Branch mg iron- 1 mg-200 mg Cap PNV 67-iron Yes [id number] 1{each} Take 1 Univers ps-folate 4-29 Each by ity of no.1-dha 00:00: mouth [place] (VITAFOL 00 daily. Medical ULTRA) 29 Branch mg iron- 1 mg-200 mg Cap PNV 67-iron Yes [id number] 1{each} Take 1 Univers ps-folate 4-29 Each by ity of no.1-dha 00:00: mouth [place] (VITAFOL 00 daily. Medical ULTRA) 29 Branch mg iron- 1 mg-200 mg Cap PNV 67-iron Yes [id number] 1{each} Take 1 Univers ps-folate 4-29 Each by ity of no.1-dha 00:00: mouth [place] (VITAFOL 00 daily. Medical ULTRA) 29 Branch mg iron- 1 mg-200 mg Cap proMETHazin 2021- No [id number] 25mg Take 1 Univers e 25 mg 4-29 12- tablet by ity of tablet 00:00: 00:00 mouth [place] 00 :00 every 6 Medical (six) Branch hours as needed for Nausea and Vomiting (N/V). Immunizations Ordered Filled Immunization Date Status Comments [facility] e Immunization Name Name TDAP 2022-08-20 Completed University of 00:00:00 [facility] TDAP 2022-08-20 Completed University of 00:00:00 [facility] TDAP 2022-08-20 Completed University of 00:00:00 [facility] TDAP 2022-08-20 Completed University of 00:00:00 [place] [facility] TDAP 2022-08-20 Completed University of 00:00:00 [place] [facility] TDAP 2022-08-20 Completed University of 00:00:00 [place] [facility] TDAP 2022-08-20 Completed University of 00:00:00 [facility] TDAP 2022-08-20 Completed University of 00:00:00 [facility] TDAP 2022-08-20 Completed University of 00:00:00 [place] [facility] TDAP 2022-08-20 Completed [facility] of 00:00:00 [facility] TDAP 2022-08-20 Completed University of 00:00:00 [facility] TDAP 2022-08-20 Completed [facility] of 00:00:00 [facility] TDAP 2022-08-20 Completed University of 00:00:00 [facility] TDAP 2022-08-20 Completed University of 00:00:00 [facility] TDAP 2022-08-20 Completed University of 00:00:00 [facility] TDAP 2022-08-20 Completed University of 00:00:00 [facility] TDAP 2022-08-20 Completed University of 00:00:00 [facility] TDAP 2022-08-20 Completed University of 00:00:00 [facility] TDAP 2022-08-20 Completed University of 00:00:00 [facility] TDAP 2022-08-20 Completed University of 00:00:00 [facility] TDAP 2022-08-20 Completed University of 00:00:00 [facility] TDAP 2022-08-20 Completed University of 00:00:00 [facility] TDAP 2022-08-20 Completed University of 00:00:00 [facility] Vital Signs Vital Name Observation Time Observation Value Comments Source Systolic blood 2022-12-01 118 mm[Hg] University of pressure 04:21:00 [facility] Diastolic blood 2022-12-01 76 mm[Hg] University o f pressure 04:21:00 [facility] Heart rate 2022-12-01 78 /min University of 04:21:00 [facility] Body temperature 2022-12-01 36.72 [place] University of 04:21:00 [facility] Respiratory rate 2022-12-01 18 /min University of 04:21:00 [facility] Body height 2022-12-01 160 cm University of 04:21:00 [facility] Body weight 2022-12-01 92.987 kg University of 04:21:00 [facility] BMI 2022-12-01 36.31 kg/m2 University of 04:21:00 [facility] Oxygen saturation 2022-12-01 100 /min University of in Arterial blood 04:21:00 [place] [facility] by Pulse oximetry Branch Systolic blood 2022-11-16 105 mm[Hg] University of pressure 15:33:00 [facility] Diastolic blood 2022-11-16 70 mm[Hg] University o f pressure 15:33:00 [facility] Heart rate 2022-11-16 104 /min University of 15:33:00 [facility] Body temperature 2022-11-16 36.17 [place] University of 15:33:00 [facility] Respiratory rate 2022-11-16 20 /min University of 15:33:00 [facility] Body height 2022-11-16 160 cm University of 15:33:00 [facility] Body weight 2022-11-16 99.882 kg University of 15:33:00 [facility] BMI 2022-11-16 39.01 kg/m2 University of 15:33:00 [facility] Systolic blood 2022-11-11 120 mm[Hg] University of pressure 19:02:00 [facility] Diastolic blood 2022-11-11 72 mm[Hg] University o f pressure 19:02:00 [facility] Heart rate 2022-11-11 92 /min University of 18:51:00 [facility] Body temperature 2022-11-11 36.78 [place] University of 18:51:00 [facility] Oxygen saturation 2022-11-11 98 /min University of in Arterial blood 18:51:00 [place] [facility] by Pulse oximetry Branch Systolic blood 2022-11-11 128 mm[Hg] University of pressure 00:02:00 [facility] Diastolic blood 2022-11-11 88 mm[Hg] University o f pressure 00:02:00 [place] [facility] Branch Heart rate 2022-11-11 75 /min University of 00:02:00 [place] [facility] Respiratory rate 2022-11-11 18 /min University of 00:02:00 [facility] Oxygen saturation 2022-11-11 98 /min University of in Arterial blood 00:02:00 [place] [facility]i natalie by Pulse oximetry Branch Body temperature 2022-11-10 37.22 [place] University of 21:50:00 [place] [facility] Body height 2022-11-10 160 cm University of 21:50:00 [facility] Body weight 2022-11-10 104.327 kg University of 21:50:00 [facility] BMI 2022-11-10 40.74 kg/m2 University of 21:50:00 [facility] Heart rate 2022-11-08 119 /min University of 13:40:00 [facility] Systolic blood 2022-11-08 145 mm[Hg] pt was in pain. University of pressure 13:28:00 nurse will [place] [facility] recheck pulse Branch Diastolic blood 2022-11-08 79 mm[Hg] pt was in pain. Univers y of pressure 13:28:00 nurse will [place] [facility] recheck pulse Branch Body temperature 2022-11-08 37 [place] University of 13:28:00 [facility] Respiratory rate 2022-11-08 20 /min University of 13:28:00 [facility] Oxygen saturation 2022-11-08 97 /min University of in Arterial blood 13:28:00 [facility] natalie by Pulse oximetry Branch Body weight 2022-11-06 110 kg University of 20:30:00 [facility] BMI 2022-11-06 42.97 kg/m2 University of 20:30:00 [place] [facility] Systolic blood 2022-11-07 121 mm[Hg] University of pressure 09:00:00 [place] [facility] Diastolic blood 2022-11-07 56 mm[Hg] University o f pressure 09:00:00 [facility] Heart rate 2022-11-07 107 /min University of 09:00:00 [place] [facility] Respiratory rate 2022-11-07 18 /min University of 09:00:00 [place] [facility] Oxygen saturation 2022-11-07 98 /min University of in Arterial blood 09:00:00 [facility] natalie by Pulse oximetry Branch Body temperature 2022-11-07 38.44 [place] University of 08:30:00 [place] [facility] Body weight 2022-11-06 110 kg University of 20:30:00 [facility] BMI 2022-11-06 42.97 kg/m2 University of 20:30:00 [facility] Systolic blood 2022-10-30 119 mm[Hg] University of pressure 18:30:00 [facility] Diastolic blood 2022-10-30 84 mm[Hg] University o f pressure 18:30:00 [facility] Heart rate 2022-10-30 88 /min University of 18:30:00 [facility] Body temperature 2022-10-30 36.78 [place] University of 18:30:00 [facility] Respiratory rate 2022-10-30 18 /min University of 18:30:00 [facility] Body height 2022-10-30 160 cm University of 18:30:00 [facility] Body weight 2022-10-30 110 kg University of 18:30:00 [facility] BMI 2022-10-30 42.97 kg/m2 University of 18:30:00 [facility] Oxygen saturation 2022-10-30 99 /min [facility] in Arterial blood 18:30:00 [facility] by Pulse oximetry Branch Systolic blood 2022-10-23 117 mm[Hg] University of pressure 16:06:00 [facility] Diastolic blood 2022-10-23 70 mm[Hg] University o f pressure 16:06:00 [facility] Heart rate 2022-10-23 99 /min University of 16:06:00 [facility] Body temperature 2022-10-23 36.39 [place] University of 16:06:00 [facility] Respiratory rate 2022-10-23 20 /min University of 16:06:00 [facility] Body height 2022-10-23 160 cm University of 16:06:00 [facility] Body weight 2022-10-23 109.272 kg University of 16:06:00 [facility] BMI 2022-10-23 42.67 kg/m2 University of 16:06:00 [facility] Systolic blood 2022-10-11 128 mm[Hg] University of pressure 17:21:00 [facility] Diastolic blood 2022-10-11 69 mm[Hg] University o f pressure 17:21:00 [facility] Heart rate 2022-10-11 107 /min University of 17:21:00 [facility] Body temperature 2022-10-11 36.61 [place] University of 17:21:00 [facility] Respiratory rate 2022-10-11 16 /min University of 17:21:00 [facility] Body height 2022-10-11 160 cm University of 17:21:00 [facility] Body weight 2022-10-11 107.616 kg University of 17:21:00 [place] [facility] BMI 2022-10-11 42.03 kg/m2 University of 17:21:00 [facility] Systolic blood 2022-10-06 109 mm[Hg] University of pressure 17:03:00 [facility] Branch Diastolic blood 2022-10-06 68 mm[Hg] University o f pressure 17:03:00 [facility] Heart rate 2022-10-06 100 /min University of 17:03:00 [facility] Body temperature 2022-10-06 36.06 [place] University of 17:03:00 [facility] Respiratory rate 2022-10-06 18 /min University of 17:03:00 [facility] Body height 2022-10-06 160 cm University of 17:03:00 [facility] Body weight 2022-10-06 106.737 kg University of 17:03:00 [facility] BMI 2022-10-06 41.68 kg/m2 University of 17:03:00 [facility] Systolic blood 2022-10-01 113 mm[Hg] University of pressure 21:09:00 [place] [facility] Diastolic blood 2022-10-01 68 mm[Hg] University o f pressure 21:09:00 [facility] Heart rate 2022-10-01 98 /min University of 21:09:00 [facility] Body temperature 2022-10-01 36.56 [place] University of 21:09:00 [facility] Respiratory rate 2022-10-01 16 /min University of 21:09:00 [facility] Body height 2022-10-01 160 cm University of 21:09:00 [facility] Branch Body weight 2022-10-01 105.461 kg University of 21:09:00 [facility] BMI 2022-10-01 41.19 kg/m2 University of 21:09:00 [facility] Systolic blood 2022-09-16 117 mm[Hg] University of pressure 21:10:00 [place] [facility] Diastolic blood 2022-09-16 66 mm[Hg] University o f pressure 21:10:00 [facility] Branch Heart rate 2022-09-16 98 /min University of 21:10:00 [facility] Body temperature 2022-09-16 36.28 [place] [facility] 21:10:00 [place] [facility] Respiratory rate 2022-09-16 18 /min University of 21:10:00 [facility] Body height 2022-09-16 160 cm University of 21:10:00 [facility] Body weight 2022-09-16 104.441 kg University of 21:10:00 [facility] BMI 2022-09-16 40.79 kg/m2 University of 21:10:00 [facility] Systolic blood 2022-09-02 109 mm[Hg] University of pressure 20:30:00 [facility] Diastolic blood 2022-09-02 70 mm[Hg] University o f pressure 20:30:00 [facility] Heart rate 2022-09-02 106 /min University of 20:30:00 [facility] Body temperature 2022-09-02 36.39 [place] University of 20:30:00 [facility] Respiratory rate 2022-09-02 17 /min University of 20:30:00 [facility] Body height 2022-09-02 160 cm University of 20:30:00 [facility] Body weight 2022-09-02 103.42 kg University of 20:30:00 [facility] BMI 2022-09-02 40.39 kg/m2 University of 20:30:00 [facility] Systolic blood 2022-08-19 116 mm[Hg] University of pressure 21::00 [facility] Diastolic blood 2022-08-19 61 mm[Hg] University o f pressure ::00 [facility] Heart rate 2022-08-19 100 /min University of 21::00 [facility] Body temperature 2022-08-19 36.44 [place] University of ::00 [facility] Respiratory rate 2022-08-19 18 /min University of ::00 [facility] Body weight 2022-08-19 103.511 kg University of 21::00 [facility] BMI 2022-08-19 40.42 kg/m2 University of 21:27:00 [facility] Procedures Procedure Date / Time Performing Clinician Source Performed CONSENT/REFUSAL FOR 2022-12-01 04:14:11 Doctor Unassigned, No Un [facility] DIAGNOSIS AND TREATMENT Name Medical Branch URINALYSIS 2022-11-10 22:22:00 Junior Sanchez o f [facility] RAPID INFLUENZA A/B 2022-11-10 22:22:00 Junior Sanchez [facility] COVID-19 (ID NOW RAPID 2022-11-10 22:22:00 [facility] CONSENT/REFUSAL FOR 2022-11-10 21:39:22 Doctor Unassigned, No Un [facility] DIAGNOSIS AND TREATMENT Name [facility] CBC WITH DIFF 2022-11-08 11:27:00 Jenusaitis, [facility] CBC WITH DIFF 2022-11-08 11:27:00 Jenusaitis, [facility] VENOUS CORD GAS 2022-11-07 07:15:00 Evelyne [facility] VENOUS CORD GAS 2022-11-07 07:15:00 Elvia Stubbsshua [facility] SECTION 2022-11-07 06:29:00 Tony [facility] SECTION 2022-11-07 06:29:00 Tony [facility] CENTRAL NEURAXIAL BLOCK 2022-11-06 05:38:50 Jonathan Bedoya Un [facility] CBC WITH DIFF 2022-11-05 15:09:00 Veto Stubbs [facility] HEPATITIS B SURFACE 2022-11-05 15:09:00 Veto Stubbs [facility] HIV 1/2 AG-AB WITH 2022-11-05 15:09:00 Veto Stubbs [facility] REFLEX [facility] GALV ONLY - [place] 2022-11-05 15:09:00 Veto Stubbs [facility] IGG/IGM [facility] CBC WITH DIFF 2022-11-05 15:09:00 Veto Stubbs [facility] HEPATITIS B SURFACE 2022-11-05 15:09:00 Veto Stubbs [facility] HIV 1/2 AG-AB WITH 2022-11-05 15:09:00 Veto Stubbs [facility] REFLEX [facility] GALV ONLY - [place] 2022-11-05 15:09:00 Veto Stubbs [facility] IGG/IGM [facility] HB ABO GROUPING 2022-11-05 15:07:00 Veto Stubbs [facility] RHO (D) IMMUNE GLOBULIN 2022-11-05 15:07:00 Clarice Antonio Uni [facility] HB ABO GROUPING 2022-11-05 15:07:00 Veto Stubbs [facility] RHO (D) IMMUNE GLOBULIN 2022-11-05 15:07:00 Antonio Oneil Uni [facility] NOTICE OF PRIVACY 2022-10-30 18:16:50 Doctor Unassigned, No [facility] PRACTICES [facility] CONSENT/REFUSAL FOR 2022-10-30 18:11:51 Doctor Unassigned, No [facility] DIAGNOSIS AND TREATMENT [facility] POCT URINALYSIS 2022-10-23 00:00:00 Nataliia Dodson [facility] DME/SUPPLY JUSTIFICATION 2022-10-20 06:01:00 Doctor Unassigned, No [facility] POCT URINALYSIS 2022-10-11 17:22:00 Nataliia Dodson [facility] POCT URINALYSIS 2022-10-06 17:04:00 Nataliia Dodson [facility] POCT URINALYSIS 2022-10-01 21:10:00 Nataliia Dodson [facility] POCT URINALYSIS 2022-09-16 21:13:00 Nataliia Dodson [facility] POCT URINALYSIS 2022-09-02 00:00:00 Nataliia Dodson [facility] HIV 1/2 AG-AB WITH 2022-08-20 16:04:00 Nataliia Dodson [facility] GALV ONLY - [place] 2022-08-20 16:04:00 [facility] TDAP VACCINE, >11 YRS, 2022-08-19 21:20:21 Nataliia Dodson [facility] Encounters Start End Encounter Admission Attending Care Care Encounter Source Date/Time Date/Time Type Type Clinicians Facility Department ID 2022-12-10 2022-12-[address] [facility] [id number] Univers 15:45:00 15:45:00 YOLY sally [facility] 2022-12-07 2022-12-[address] [facility] [id number] Univers 16:00:00 16:00:00 YOLY [facility] 2022-11-30 2022-11-30 [facility] ERT [id number] Univers 22:24:00 22:41:00 JOELJODI [facility] 2022-11-30 2022-11-30 Emergency [facility] 1.2.268.406 [id number] Univers 22:24:00 22:41:00 Fidencio Khalil [place] 350.1.13.10 ity [facility] 4.2.7.2.686 [facility] [id number] [address] 2022-11-30 2022-11-[address] [facility] [id number] Univers 14:00:00 14:00:00 YOLY [facility] 2022-11-25 2022-11-25 Telephone Ivory [facility] 1.2.840.114 [id number] Univers 00:00:00 00:00:00 Nataliia King GEOSPATIAL IMAGERY INTELLIGENCE ANALYST 350.1.13.10 ity [facility] 4.2.7.2.686 Julio MATERNAL [id number] Med ical & CHILD [address] [place] [address] 2022-11-16 2022-11-16 Nurse Visit, Jesus-Rmchp Nurse [facility] 1.2 .840.114 [id number] Univers 09:30:00 09:30:00 Visit Katrin Khalil GEOSPATIAL IMAGERY INTELLIGENCE ANALYST 350 .1.13.10 ity of Nataliia Dodson [facility] 4.2.7.2.68 6 [place] MATERNAL [id number] Med ical & CHILD [address] [place] [address] 2022-11-16 2022-11-16 Outpatient R IVORY, [facility] [id number] Univers 09:30:00 09:07:58 NATALIIA hendrix o f [facility] 2022-11-11 2022-11-11 Outpatient P VISH [facility] JERRELL [id number] Univers 12:39:00 14:15:00 BIANKA hendrix [facility] 2022-11-11 2022-11-11 [facility] Vish SHABANA 1.2.840.114 [id number] Univers 12:39:00 14:15:00 Encounter Bianka JERICHO 350.1.13.10 ity [facility] 4.2.7.2.686 [place] [id number] [facility] [address] 2022-11-11 2022-11-11 Telephone SHABANA Jimenez 1.2.840.114 [id number] Univers 00:00:00 00:00:00 Steve ECHAVARRIA 350.1.13.10 i ty [facility] 4.2.7.2.686 Julio as [id number] [facility] [address] 2022-11-10 2022-11-10 Emergency X SANCHEZ [facility] ERT [id number] Univers 15:56:00 18:18:00 JUNIOR hendrix [facility] 2022-11-10 2022-11-10 Emergency FlacoDelroy conteh [facility] 1.2. 840.114 [id number] Univers 15:56:00 18:18:00 Junior Sanchez 350.1.13.10 ity [facility] 4.2.7.2.686 [place] [facility] [id number] [facility] [address] 2022-11-05 2022-11-08 Inpatient P SERGE [facility] JERRELL [id number] Univers 07:55:00 17:34:00 ROCKY hendrix [facility] 2022-11-05 2022-11-08 [facility] SHABANA Conrad 1.2.458.644 [id number] Univers 07:55:00 17:34:00 Encounter Rocky ECHAVARRIA 350.1.13.10 [facility] 4.2.7.2.686 Julio as [id number] [facility] [address] 2022-11-07 2022-11-07 Surgery SHABANA Jimenez 1.2.840.114 [id number] Univers 01:15:00 03:00:00 Steve ECHAVARRIA 350.1.13.10 i ty of [facility] 4.2.7.2.686 Julio as [id number] [facility] [address] 2022-11-05 2022-11-05 Anesthesia Jennifer Fajardo 1.2. 840.114 [id number] Univers 22:28:00 22:28:00 Event Amber Conde JERICHO 350.1.13.10 ity of [facility] 4.2.7.2.686 Julio as [id number] [facility] [address] 2022-10-30 2022-10-30 Outpatient X ADUM, [facility] JERRELL [id number] Univers 12:23:00 13:45:00 AUDREY [facility] 2022-10-30 2022-10-30 Emergency Adum, [facility] 1.2.872.498 [id number] Univers 12:23:00 13:45:00 Audrey MOORE 350.1.13.10 ity [place]2.7.[place].686 [place] [id number] [facility] [address] 2022-10-28 2022-10-[address] [facility] [id number] Univers 15:45:00 15:45:00 YOLY [facility] 2022-10-23 2022-10-[address] [facility] [id number] Univers 10:15:00 10:30:34 ROSAMARIA hendrix [facility] 2022-10-23 2022-10-23 [facility]ine [facility] 1 .2.840.114 [id number] Univers 10:15:00 10:30:34 Rosamaria Sosa GEOSPATIAL IMAGERY INTELLIGENCE ANALYST 350.1.13.10 ity of Visit [facility] 4.2.7.2.686 Julio as MATERNAL [id number] Med ical & CHILD [address] [place] [address] 2022-10-20 2022-10-20 Orders Doctor SHABANA 1.2.840.114 [id number] Univers 00:00:00 00:00:00 Only Unassigned, JERICHO 350.1.13.10 ity of [place] [facility] 4.2.7.2.686 Julio as [id number] [address] 2022-10-12 2022-10-[address] [facility] [id number] Univers 13:15:00 13:15:00 ity of [facility] 2022-10-12 2022-10-12 Telephone [facility] 1.2.840.114 [id number] Univers 00:00:00 00:00:00 Nataliia C GEOSPATIAL IMAGERY INTELLIGENCE ANALYST 350.1.13.10 ity of [facility] 4.2.7.2.686 Julio as MATERNAL [id number] [facility] ical & CHILD [address] [place] [address] 2022-10-11 2022-10-11 Routine [facility] 1.2.748.904 [id number] Univers 11:00:00 11:15:00 Nataliia King GEOSPATIAL IMAGERY INTELLIGENCE ANALYST 350.1.13.10 ity of Visit [facility] 4.2.7.2.686 Julio as MATERNAL [id number] [facility] & CHILD [address] [place] [address] 2022-10-11 2022-10-[address] [facility] [id number] Univers 11:00:00 11:00:00 NATALIIA hendrix o f [facility] 2022-10-07 2022-10-[address] [facility] [id number] Univers 14:00:00 14:00:[facility]22-10-[facility] 2022-10-[address] [facility] [id number] Univers 10:45:00 11:48:25 YOLY [facility] 2022-10-06 2022-10-06 Routine Provider, [facility] 1 .2.840.114 [id number] Univers 10:45:00 11:48:25 Yoly Mei GEOSPATIAL IMAGERY INTELLIGENCE ANALYST 350.1.13. 10 ity of Visit [facility] 4.2.7.2.686 Julio as MATERNAL [id number] [facility] & CHILD [address] [place] [address] 2022-10-04 2022-10-04 Outpatient R AKINSIPE, [facility] [id number] Univers 15:30:00 15:30:00 NATALIIA ity o f [facility] 2022-10-01 2022-10-01 Outpatient R AKINSIPE, [facility] [id number] Univers 14:45:00 15:40:54 NATALIIA ity o f [facility] 2022-10-01 2022-10-01 Routine Akinsipe, [facility] 1.2.592.976 [id number] Univers 14:45:00 15:40:54 Nataliia C GEOSPATIAL IMAGERY INTELLIGENCE ANALYST 350.1.13.10 ity of Visit REG[facility]AL 4.2.7.2.686 Julio as MATERNAL [id number] [facility] & CHILD [address] [place] [address] 2022-09-16 2022-09-16 Routine Akinsipe, [facility] 1.2.931.878 [id number] Univers 16:00:00 16:15:00 Nataliia C GEOSPATIAL IMAGERY INTELLIGENCE ANALYST 350.1.13.10 ity of Visit REG[facility]AL 4.2.7.2.686 Julio as MATERNAL [id number] [facility] & CHILD [address] [place] [address] 2022-09-16 2022-09-16 Outpatient R AKINSIPE, [facility] [id number] Univers 16:00:00 16:00:00 NATALIIA ity o [facility] 2022-09-02 2022-09-02 Outpatient R AKINSIPE, [facility] [id number] Univers 15:30:00 15:44:03 NATALIIA ity o [facility] 2022-09-02 2022-09-02 Routine Akinsipe, [facility] 1.2.587.245 [id number] Univers 15:30:00 15:44:03 Nataliia C GEOSPATIAL IMAGERY INTELLIGENCE ANALYST 350.1.13.10 ity of Visit [facility] 4.2.7.2.686 Julio as MATERNAL [id number] [facility] & CHILD [address] [place] [address] 2022-08-20 2022-08-20 Outpatient R AKINSIPE, [facility] [id number] Univers 10:30:00 11:08:03 NATALIIA ity o sherine [facility] 2022-08-20 2022-08-20 [employer] Lab, Ang-Rmchp [facility] 1.2.840. 114 [id number] Univers 10:30:00 11:08:03 Visit Ivory Nataliia C GEOSPATIAL IMAGERY INTELLIGENCE ANALYST 350.1.13. 10 ity of REGIONAL 4.2.7.2.686 Julio as MATERNAL [id number] Med ical & CHILD [address] [place] [address] 2022-08-19 2022-08-[address] [facility] [id number] Univers 16:00:00 16:44:59 NATALIIA ity o f [facility] 2022-08-19 2022-08-19 Routine [facility] 1.2.382.770 [id number] Univers 16:00:00 16:44:59 Nataliia C GEOSPATIAL IMAGERY INTELLIGENCE ANALYST 350.1.13.10 ity of Visit REGIONAL 4.2.7.2.686 Julio as MATERNAL [id number] [facility] & CHILD [address] [place] [address] 2022-08-06 2022-08-[address] [facility] [id number] Univers 15:15:00 15:15:00 ity of [facility] 2022-08-06 2022-08-06 Telephone [facility] 1.2.840.114 [id number] Univers 00:00:00 00:00:00 Nataliia C GEOSPATIAL IMAGERY INTELLIGENCE ANALYST 350.1.13.10 ity of REGIONAL 4.2.7.2.686 Julio as MATERNAL [id number] [facility] & CHILD [address] [place] [address] 2022-08-06 2022-08-06 Telephone [facility] 1.2.840.114 [id number] Univers 00:00:00 00:00:00 Nataliia C GEOSPATIAL IMAGERY INTELLIGENCE ANALYST 350.1.13.10 ity of REGIONAL 4.2.7.2.686 Julio as MATERNAL [id number] [facility] ical & CHILD [address] [place] [address] 2022-08-05 2022-08-05 Routine Akinsipe, [facility] 1.2.839.738 [id number] Univers 13:00:00 13:21:54 Nataliia C GEOSPATIAL IMAGERY INTELLIGENCE ANALYST 350.1.13.10 ity of Visit REG[facility]AL 4.2.7.2.686 Julio as MATERNAL [id number] [facility] & CHILD [address] [place] [address] 2022-08-05 2022-08-05 Outpatient R AKINSIPE, [facility] [id number] Univers 13:00:00 13:21:54 NATALIIA ity o f [facility] 2022-08-05 2022-08-05 Outpatient R AKINSIPE, [facility] [id number] Univers 13:00:00 13:21:54 NATALIIA ity o f [facility] 2022-08-05 2022-08-05 Outpatient R AKINSIPE, 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 13.10 ity of REGIONAL 4.2.7.2.686 Julio as MATERNAL [id number] [facility] & CHILD [address] [facility] 2022-07-19 2022-07-[address] [facility] [id number] Univers 13:00:00 13:00:00 ity of [facility] 2022-07-19 2022-07-[address] [facility] [id number] Univers 13:00:00 13:00:00 JUAN CARLOS it y of [place] [facility] 2022-07-19 2022-07-19 Telephone [facility] 1.2.840.114 [id number] Univers 00:00:00 00:00:00 Nataliia C GEOSPATIAL IMAGERY INTELLIGENCE ANALYST 350.1.13.10 ity of [facility] 4.2.7.2.686 Julio as MATERNAL [id number] [address] 2022-07-05 2022-07-05 Routine [facility] 1.2.986.370 [id number] Univers 15:30:00 15:45:00 Nataliia C GEOSPATIAL IMAGERY INTELLIGENCE ANALYST 350.1.13.10 ity of Visit [facility] 4.2.7.2.686 Julio as MATERNAL [id number] [address] 2022-07-05 2022-07-05 Outpatient R [facility] [id number] Univers 15:30:00 15:30:00 NATALIIA hendrix o [facility] 2022-07-05 2022-07-05 Outpatient R [facility] [id number] Univers 15:30:00 15:30:00 NATALIIA lovey o [facility] 2022-06-25 2022-06-25 Orders Doctor SHABANA 1.2.840.114 [id number] Univers 00:00:00 00:00:00 Only Unassigned, JERICHO 350.1.13.10 ity of [place] [facility] 4.2.7.2.686 Julio as [id number] [address] 2022-06-21 2022-06-21 Telephone [facility] 1.2.840.114 [id number] Univers 00:00:00 00:00:00 Nataliia C GEOSPATIAL IMAGERY INTELLIGENCE ANALYST 350.1.13.10 ity of [facility] 4.2.7.2.686 Julio as MATERNAL [id number] [address] 2022-06-18 2022-06-18 Meat [employer] Ultrasound, [facility] 1.2 .840.114 [id number] Univers 14:45:00 16:00:00 Visit Leatha Michele GEOSPATIAL IMAGERY INTELLIGENCE ANALYST 350.1.13.10 ity of REGIONAL 4.2.7.2.686 Julio as MATERNAL [id number] [facility] ical & CHILD [address] [facility] 2022-06-18 2022-06-[address] [facility] [id number] Univers 14:45:00 14:45:00 ity [facility] 2022-06-18 2022-06-18 Outpatient P RYNE, [facility] [id number] Univers 14:45:00 14:45:00 [facility] 2022-06-18 2022-06-18 Abstract [facility] 1.2.840.114 [id number] Univers 00:00:00 00:00:00 Nataliia C GEOSPATIAL IMAGERY INTELLIGENCE ANALYST 350.1.13.10 ity of REG[facility]AL 4.2.7.2.686 Julio as MATERNAL [id number] [facility] & CHILD [address] [place] [address] 2022-06-11 2022-06-11 Telephone [facility] 1.2.142.445 [id number] Univers 00:00:00 00:00:00 Rosyarya R GEOSPATIAL IMAGERY INTELLIGENCE ANALYST 350.1.13.10 ity of REGIONAL 4.2.7.2.686 Julio as MATERNAL [id number] [facility] & CHILD [address] [place] [address] 2022-06-07 2022-06-07 Routine [facility] 1.2.595.610 [id number] Univers 12:45:00 13:00:00 Nataliia King GEOSPATIAL IMAGERY INTELLIGENCE ANALYST 350.1.13.10 ity of Visit [facility] 4.2.7.2.686 Julio as MATERNAL [id number] [facility] & CHILD [address] [place] [address] 2022-06-07 2022-06-07 Outpatient R IVORY, [facility] [id number] Univers 12:45:00 12:45:00 NATALIIA basurto [facility] 2022-06-03 2022-06-03 Outpatient R IVORY, [facility] [id number] Univers 16:00:00 16:00:00 NATALIIA basurto [facility] 2022-05-14 2022-05-14 Outpatient R [facility] [id number] Univers 16:00:00 16:35:28 NATALIIA ity o f [facility] 2022-05-14 2022-05-14 Routine [facility] 1.2.200.489 [id number] [facility] 16:00:00 16:35:28 Nataliia C GEOSPATIAL IMAGERY INTELLIGENCE ANALYST 350.1.13.10 ity of Visit REG[facility]AL 4.2.7.2.686 Julio as MATERNAL [id number] [facility] & CHILD [address] [place] [address] 2022-05-14 2022-05-14 Orders Doctor SHABANA 1.2.840.114 [id number] Univers 00:00:00 00:00:00 Only Unassigned, JERICHO 350.1.13.10 ity of [place] [facility] 4.2.7.2.686 Julio as [id number] [facility] [address] 2022-04-30 2022-04-30 SHABANA Sandy 1.2.840.114 [id number] Univers 00:00:00 00:00:00 Triage Cecile JERICHO 350.1.13.10 it y of HOSPITAL 4.2.7.2.686 Julio as [id number] [facility] [address] 2022-04-30 2022-04-30 SHABANA Zuleta 1.2.840.114 [id number] Univers 00:00:00 00:00:00 Triage Aneatrice JERICHO 350.1.13.10 ity of HOSPITAL 4.2.7.2.686 Julio as [id number] [facility] [address] 2022-04-29 2022-04-29 Telephone [facility] 1.2.840.114 [id number] Univers 00:00:00 00:00:00 Nataliia C GEOSPATIAL IMAGERY INTELLIGENCE ANALYST 350.1.13.10 ity of [facility] 4.2.7.2.686 Julio as MATERNAL [id number] [facility] & CHILD [address] [place] [address] 2022-04-28 2022-04-28 SHABANA Sandy 1.2.840.114 [id number] Univers 00:00:00 00:00:00 Triage Cecile JERICHO 350.1.13.10 it y of HOSPITAL 4.2.7.2.686 Julio as [id number] [address] 2022-04-16 2022-04-16 [facility]ine [facility] 1.2.777.312 [id number] Univers 15:30:00 15:45:00 Nataliia King GEOSPATIAL IMAGERY INTELLIGENCE ANALYST 350.1.13.10 ity of Visit [facility] 4.2.7.2.686 Julio as MATERNAL [id number] [facility] & CHILD [address] [place] [address] 2022-04-16 2022-04-16 Outpatient R [facility] [id number] Univers 15:30:00 15:30:00 NATALIIA lovey o f [facility] 2022-04-14 2022-04-14 Abstract [facility] 1.2.840.114 [id number] Univers 00:00:00 00:00:00 Nataliia King GEOSPATIAL IMAGERY INTELLIGENCE ANALYST 350.1.13.10 ity of [facility] 4.2.7.2.686 Julio as MATERNAL [id number] [facility] & CHILD [address] [place] [address] 2022-04-09 2022-04-09 Meat [employer] Ultrasound, [facility] 1.2 .840.114 [id number] Univers 11:30:00 12:00:00 Visit Janette Thomson GEOSPATIAL IMAGERY INTELLIGENCE ANALYST 350.1.13.10 ity of [facility] 4.2.7.2.686 Julio as MATERNAL [id number] [facility] & CHILD [address] [facility] 2022-04-09 2022-04-[address] [facility] [id number] Univers 11:30:00 11:30:00 ity of [facility] 2022-04-09 2022-04-09 Outpatient P JANETTE THOMSON [facility] [id number] Univers 11:30:00 11:30:00 JANETTE THOMSON [facility] 2022-03-24 2022-03-24 Orders Doctor DONALD 1.2.840.114 [id number] Univers 00:00:00 00:00:00 Only Unassigned, JERICHO 350.1.13.10 ity of [place] [facility] 4.2.7.2.686 Julio as [id number] [address] 2022-03-19 2022-03-19 Outpatient R AKINSIPE, [facility] [id number] Univers 15:00:00 15:52:14 NATALIIA hendrix o f [facility] 2022-03-19 2022-03-19 Initial Akinwkan, [facility] 1.2.114.209 [id number] Univers 15:00:00 15:52:14 Nataliia King GEOSPATIAL IMAGERY INTELLIGENCE ANALYST 350.1.13.10 ity of Visit [facility] 4.2.7.2.686 Julio as MATERNAL [id number] Med ical & CHILD [address] [place] [address] 2021-06-01 2021-06-01 Outpatient R ADUM, [facility] [id number] Univers 00:00:00 00:00:00 AUDREY [facility] 2021-04-22 2021-04-22 Office Ad, [facility] 1.2.840.114 [id number] Univers 13:59:17 15:04:16 Visit Audrey [facility].13.[facility] [id number] [place] [id number] [place] dical [address] 2021-04-22 2021-04-22 Outpatient R ADUM, [facility] [id number] Univers 14:00:00 14:00:00 [facility] Results Test Description Test Time Test Comments Results Result Comments Source RHO (D) IMMUNE GLOBULIN 2022-11-07 14:35:32 Test Item Value Reference Range Interpretation Comme nts RHIG CANDIDATE? (test code = No- see comment Patient is not a candidate for RhIg- 5055) Patient is Rh P ositive.Performed at [facility] Laboratory Services - [facility] Blood [id number] [place] [address] [id number] Free: [phone] A No. [id number] [facility] [id number] 14:35:32 Test Item Value Reference Range Interpretation Comments RHIG CANDIDATE? No- see comment Patient i s not a (test code = candidate for R hIg- 5055) Patient is Rh Positive.Perfor med at [facility] Laboratory Services - [facility] Blood [address] [place] [address] [id number] Free: [phone] A No. [id number] [facility] [id number] 07:34:36 Test Item Value Reference Range Interpretation Comments BASE EXCESS, CORD (test mEq/L code = 0967785268) AC PH, CORD (BEAKER) 7.18-7.38 (test code = 2900593764) PC02, CORD (test code = See_Comment [Au tomated message] [id number]) The system whic h generated this result transmitted ref erence range: 32 - 66 mmHg. The reference r jaleesa was not used to interpret this result as normal/abnor mal. PO2, CORD (test code = See_Comment L [Aut omated message] [id number]) The system [employer] h generated this result transmitted ref erence range: 10 - 30 mmHg. The reference r jaleesa was not used to interpret this result as normal/abnor mal. BICARBONATE, CORD (test See_Comment [Au tomated message] code = [id number]) The syste m which generated this result transmitted ref erence range: 17 - 27 mEq/L. The reference r jaleesa was not used to interpret this result as normal/abnor mal. Lab Interpretation (test Abnormal code = 57907-3) [facility] [id number] 07:34:36 Test Item Value Reference Range Interpretation Comments BASE EXCESS, CORD (test mEq/L code = [id number]) AC PH, CORD (BEAKER) 7.18-7.38 (test code = [id number]) PC02, CORD (test code = See_Comment [Au tomated message] [id number]) The system [employer] h generated this result transmitted ref erence range: 32 - 66 mmHg. The reference r jaleesa was not used to interpret this result as normal/abnor mal. PO2, CORD (test code = See_Comment L [Aut omated message] 9530672321) The system whic h generated this result transmitted ref erence range: 10 - 30 mmHg. The reference r jaleesa was not used to interpret this result as normal/abnor mal. BICARBONATE, CORD (test See_Comment [Au tomated message] code = 3178804426) The syste m which generated this result transmitted ref erence range: 17 - 27 mEq/L. The reference r jaleesa was not used to interpret this result as normal/abnor mal. Lab Interpretation (test Abnormal code = 96178-5) [facility] CORD [id number] 07:27:55 Test Item Value Reference Range Interpretation Comments VENOUS BASE EXCESS, mEq/L CORD (test code = 1093118068) VENOUS PH, CORD (test 7.25-7.45 code = 7162079802) VENOUS PC02, CORD See_Comment [Automate d message] The (test code = system which ge nerated 1371263842) this result tra nsmitted reference range : 27 - 49 mmHg. The refer ence range was not used to interpret this result as normal/abnormal . VENOUS PO2, CORD (test See_Comment [Aut omated message] The code = 8592087148) system [facility] generated this result tra nsmitted reference range : 17 - 41 mmHg. The refer ence range was not used to interpret this result as normal/abnormal . VENOUS BICARBONATE, See_Comment [Automa steven message] The CORD (test code = system [facility] ch generated 5239441545) this result tra nsmitted reference range : 12 - 29 mEq/L. The refe rence range was not used to interpret this result as normal/abnormal . [facility] CORD [id number] 07:27:55 Test Item Value Reference Range Interpretation Comments VENOUS BASE EXCESS, mEq/L CORD (test code = 1488629162) VENOUS PH, CORD (test 7.25-7.45 code = 8928723983) VENOUS PC02, CORD See_Comment [Automate d message] The (test code = system which ge nerated 8148070170) this result tra nsmitted reference range : 27 - 49 mmHg. The refer ence range was not used to interpret this result as normal/abnormal . VENOUS PO2, CORD (test See_Comment [Aut omated message] The code = 6061531520) system [facility] generated this result tra nsmitted reference range : 17 - 41 mmHg. The refer ence range was not used to interpret this result as normal/abnormal . VENOUS BICARBONATE, See_Comment [Automa steven message] The CORD (test code = system whi ch generated 2447348559) this result tra nsmitted reference range : 12 - 29 mEq/L. The refe rence range was not used to interpret this result as normal/abnormal . [facility] ONLY - SYPHILIS [id number] 16:01:05 Test Item Value Reference Range Interpretation Comments Syphilis IgG/IgM (test Non-reactive Non-reactive code = 58677-2) KELSI (test code = KELSI) Non-reactive - No serologic evidence of T. pallidum infection. Cannot exclude incubating or early syphilis. Submit a second specimen in 2-4 weeks if syphilis is clinically suspected. Equivocal - Further testing to follow. Reactive - Further testing to follow. Lab Interpretation (test Normal code = 64614-3) [facility] ONLY - SYPHILIS [id number] 16:01:05 Test Item Value Reference Range Interpretation Comments Syphilis IgG/IgM (test Non-reactive Non-reactive code = 66601-5) KELSI (test code = KELSI) Non-reactive - No serologic evidence of T. pallidum infection. Cannot exclude incubating or early syphilis. Submit a second specimen in 2-4 weeks if syphilis is clinically suspected. Equivocal - Further testing to follow. Reactive - Further testing to follow. Lab Interpretation (test Normal code = 64133-0) [facility] 1/2 AG-AB WITH [id number] 19:15:57 Test Item Value Reference Range Interpretation Comments HIV Negative Negative Semi-quantitative (test code = 03459-4) KELSI (test code = Non-reactive for HIV-1 KELSI) antigen and HIV-1/HIV-2 antibodies. ?No laboratory evidence of HIV infection. ?Repeat in 2-4 weeks if acute HIV infection is suspected. [facility] 1/2 AG-AB WITH [id number] 19:15:57 Test Item Value Reference Range Interpretation Comments HIV Negative Negative Semi-quantitative (test code = 59425-4) KELSI (test code = Non-reactive for HIV-1 KELSI) antigen and HIV-1/HIV-2 antibodies. ?No laboratory evidence of HIV infection. ?Repeat in 2-4 weeks if acute HIV infection is suspected. [facility] [id number] 16:51:38 Test Item Value Reference Range Interpretation Comments HBsAg Semi-Quantitative (test code = Negative Negative 5195-3) [facility] [id number] 16:51:38 Test Item Value Reference Range Interpretation Comments HBsAg Semi-Quantitative (test code = Negative Negative 5195-3) [facility] and Screen - ONCE [id number] 16:13:38 Test Item Value Reference Range Interpretation Comments ABO & RH (test code A POSITIVE Performe d at [facility] = 20) Laboratory [facility] [place] [address] s [id number] Free: [phone] A No. [id number] IAT (test code = Negative Performed a t [facility] 1185) Laboratory [facility] Blood [address] s [id number] Free: [phone] A No. [id number] [facility] and Screen - ONCE [id number] 16:13:38 Test Item Value Reference Range Interpretation Comments ABO & RH (test code A POSITIVE Performe d at [facility] = 20) Laboratory [facility] Blood [address] s [id number] Free: [phone] A No. [id number] IAT (test code = Negative Performed a t [facility] 1185) Laboratory [facility] Blood [address] s [id number] Free: [phone] A No. [id number] [facility] [id number] 15:38:33 Test Item Value Reference Range Interpretation Comments WBC (test code = See_Comment [Automated 2990-2) message] The sy stem which generated this result transmitted reference range : 4.30 - 11.10 10*3/?L. The reference range was not used to interpret this result as normal/abnormal . RBC (test code = See_Comment [Automated 919-8) message] The sy stem which generated this [...] RDW-SD (test code = 45.7 fL 39.0-49.9 88272-0) RDW-CV (test code = 16.0 % 12.0-15.5 H 788-0) PLT (test code = See_Comment [Automated 777-3) message] The sy stem which generated this result transmitted reference range : 166 - 358 10*3/ ?L. The reference r jaleesa was not used to interpret this result as normal/abnormal . MPV (test code = 10.8 fL 9.5-12.9 86993-0) NRBC/100 WBC (test See_Comment [Automat ed code = 4956715270) message] The system which generated this result transmitted reference range : 0.0 - 10.0 /100 WBCs. The refer ence range was not u sed to interpret th is result as normal/abnormal . NRBC x10^3 (test code See_Comment [Auto mated = 2745882070) message] The s ystem which generated this result transmitted reference range : 10*3/?L. The reference range was not used to interpret this result as normal/abnormal . GRAN MAT (NEUT) % 74.6 % (test code = 770-8) IMM GRAN % (test code 0.60 % = 4671773094) LYMPH % (test code = 18.6 % 736-9) MONO % (test code = 5.5 % 5905-5) EOS % (test code = 0.5 % 713-8) BASO % (test code = 0.2 % 706-2) GRAN MAT x10^3(ANC) 7.23 10*3/uL 1.88-7.09 H (test code = 6641676874) IMM GRAN x10^3 (test 0.06 10*3/uL 0.00-0.06 code = 2864236921) LYMPH x10^3 (test code 1.80 10*3/uL 1.32-3.29 = 731-0) MONO x10^3 (test code 0.53 10*3/uL 0.33-0.92 = 742-7) EOS x10^3 (test code = 0.05 10*3/uL 0.03-0.39 711-2) BASO x10^3 (test code 0.01-0.07 = 704-7) Lab Interpretation Abnormal (test code = 57012-4) [facility] with [id number] 15:38:33 Test Item Value Reference Range Interpretation Comments WBC (test code = See_Comment [Automated 7690-2) message] The sy stem which generated this result transmitted reference range : 4.30 - 11.10 10*3/?L. The reference range was not used to interpret this result as normal/abnormal . RBC (test code = See_Comment [Automated 429-8) message] The sy stem which generated this [...] RDW-SD (test code = 45.7 fL 39.0-49.9 16131-0) RDW-CV (test code = 16.0 % 12.0-15.5 H 788-0) PLT (test code = See_Comment [Automated 777-3) message] The sy stem which generated this result transmitted reference range : 166 - 358 10*3/ ?L. The reference r jaleesa was not used to interpret this result as normal/abnormal . MPV (test code = 10.8 fL 9.5-12.9 32095-3) NRBC/100 WBC (test See_Comment [Automat ed code = 9709844927) message] The system which generated this result transmitted reference range : 0.0 - 10.0 /100 WBCs. The refer ence range was not u sed to interpret th is result as normal/abnormal . NRBC x10^3 (test code See_Comment [Auto mated = 7753783881) message] The s ystem which generated this result transmitted reference range : 10*3/?L. The reference range was not used to interpret this result as normal/abnormal . GRAN MAT (NEUT) % 74.6 % (test code = 770-8) IMM GRAN % (test code 0.60 % = 7969986690) LYMPH % (test code = 18.6 % 736-9) MONO % (test code = 5.5 % 5905-5) EOS % (test code = 0.5 % 713-8) BASO % (test code = 0.2 % 706-2) GRAN MAT x10^3(ANC) 7.23 10*3/uL 1.88-7.09 H (test code = 5301798644) IMM GRAN x10^3 (test 0.06 10*3/uL 0.00-0.06 code = 1395307263) LYMPH x10^3 (test code 1.80 10*3/uL 1.32-3.29 = 731-0) MONO x10^3 (test code 0.53 10*3/uL 0.33-0.92 = 742-7) EOS x10^3 (test code = 0.05 10*3/uL 0.03-0.39 711-2) BASO x10^3 (test code 0.01-0.07 = 704-7) Lab Interpretation Abnormal (test code = 09655-4) [facility] URINALYSIS W SPECIFIC [id number] 16:07:00 Test Item Value Reference Range Interpretation [...] . [facility] URINALYSIS W SPECIFIC [id number] 17:23:00 Test Item Value Reference Range Interpretation [...] .. [facility] URINALYSIS W SPECIFIC [id number] 17:04:00 Test Item Value Reference Range Interpretation [...] . [facility] URINALYSIS W SPECIFIC [id number] 17:04:00 Test Item Value Reference Range Interpretation [...] . [facility] URINALYSIS W SPECIFIC [id number] 21:10:00 Test Item Value Reference Range Interpretation [...] 3267) [facility] URINALYSIS W SPECIFIC [id number] 21:10:00 Test Item Value Reference Range Interpretation [...] 3267) [facility] URINALYSIS W SPECIFIC [id number] 21:13:00 Test Item Value Reference Range Interpretation [...] 3267) [facility] URINALYSIS W SPECIFIC [id number] 20:34:00 Test Item Value Reference Range Interpretation [...] U APPEAR (test code = 3267) clear [id number] 16:13:45 Test Item Value Reference Range Interpretation Comments Syphilis IgG/IgM (test Non-reactive Non-reactive code = 76973-2) KELSI (test code = KELSI) Non-reactive - No serologic evidence of T. pallidum infection. Cannot exclude incubating or early syphilis. Submit a second specimen in 2-4 weeks if syphilis is clinically suspected. Equivocal - Further testing to follow. Reactive - Further testing to follow. Lab Interpretation (test Normal code = 92162-1) [facility] [id number] 05:55:09 Test Item Value Reference Range Interpretation Comments HIV Negative Negative Semi-quantitative (test code = 39652-1) KELSI (test code = Non-reactive for HIV-1 KELSI) antigen and HIV-1/HIV-2 antibodies. ?No laboratory evidence of HIV infection. ?Repeat in 2-4 weeks if acute HIV infection is suspected. [facility]
[2022-12-18 22:01] LABS: Urine Blood Trace-intact (Negative); Urine Glucose Negative (Negative); Urine Protein Negative (Negative); Urine pH 6.5 (5.0-7.0)
[2022-12-18 22:31] LABS: Urine Bacteria None Seen /HPF (<20); Urine Mucus Slight /HPF (None Seen); Urine RBC <5 /HPF (None Seen); Urine WBC Clump Rare /HPF (None Seen)
--- NOTE | 2022-12-18 22:38 | ER ---
Nurse's Notes [facility] Name: Neva Reyes Age: 22 yrs Sex: Female : 2000 Arrival Date: 12/18/2022 Time: 20:52 Bed 13 Private MD: Diagnosis: UTI/ Urinary tract infection, site not specified Presentation: 12/18 21:11 Chief complaint: Patient states: C/o pain with urination since this afternoon. ll3 Coronavirus screen: Vaccine status: Patient reports being unvaccinated. At this time, the client does not indicate any symptoms associated with coronavirus-19. Ebola Screen: No symptoms or risks identified at this time. Initial Sepsis Screen: Does the patient meet any 2 criteria? No. Patient's initial sepsis screen is negative. Does the patient have a suspected source of infection? No. Patient's initial sepsis screen is negative. Risk Assessment: Do you want to hurt yourself or someone else? Patient reports no desire to harm self or others. Onset of symptoms was December 18, 2022. 21:11 Method Of Arrival: Ambulatory ll3 21:11 Acuity: HILDA 3 ll3 Triage Assessment: 21:52 General: Appears in no apparent distress. Behavior is appropriate for age. Pain: ke1 Complains of pain in pelvis. Historical: - Allergies: 21:12 shrimp; ll3 - Home Meds: 21:12 Vitamin Oral [Active]; ll3 - PSHx: 21:12 section; ll3 - Immunization history:: Client reports having NOT received the Covid vaccine. - Social history:: Smoking status: Patient denies any tobacco usage or history of. Screenin:52 [facility] ED Fall Risk Assessment (Adult) History of falling in the last 3 months, ke1 including since admission No falls in past 3 months (0 pts) Confusion or Disorientation No (0 pts) Intoxicated or Sedated No (0 pts) Impaired Gait No (0 pts) Mobility Assist Device Used No (0 pt) Altered Elimination No (0 pt) Score/Fall Risk Level 0 - 2 = Low Risk. Abuse screen: Denies threats or abuse. Nutritional screening: No deficits noted. Tuberculosis screening: No symptoms or risk factors identified. Assessment: 22:05 Reassessment: Patient and/or family updated on plan of care and expected duration. Pain ke1 level reassessed. Patient is alert, oriented x 3, equal unlabored respirations, skin warm/dry/pink. Vital Signs: 21:11 BP 95 / 62; Pulse 84; Resp 17; Temp 98.1(O); Pulse Ox 100% on R/A; Weight 92.99 kg (R); ll3 Height 5 ft. 3 in. (160.02 cm) (R); 22:06 BP 111 / 65; Pulse 76; Resp 16; Pulse Ox 100% ; Pain 0/10; ke1 23:10 BP 102 / 64; Pulse 70; Resp 14 S; Pulse Ox 100% on R/A; ha1 21:11 Body Mass Index 36.31 (92.99 kg, 160.02 cm) ll3 ED Course: 20:52 Patient arrived in ED. am2 21:03 [facility]ancia [facility]NP-C [facility]. kb 21:03 Seth Hand DO is Attending Physician. kb 21:12 Triage completed. ll3 21:12 Arm band placed on. ll3 21:12 Patient has correct armband on for positive identification. Placed in gown. Bed in low ha1 position. Call light in reach. Side rails up X 1. 21:51 Jeni Ramos, SUSY is Primary Nurse. ke1 22:01 Urine Microscopic Only Sent. ke1 23:19 No provider procedures requiring assistance completed. Patient did not have IV access ha1 during this emergency room visit. Administered Medications: No medications were administered Medication: 23:20 VIS not applicable for this client. ha1 Outcome: 22:38 Discharge ordered by . kb 23:19 Discharged to home ambulatory. ha1 23:19 Condition: stable 23:19 Discharge instructions given to patient, Instructed on discharge instructions, follow up and referral plans. medication usage, Demonstrated understanding of instructions, follow-up care, medications, Prescriptions given X 1. 23:20 Patient left the ED. ha1 Addendum: 12/21/2022 10:10 Addendum: Culture Results: Positive urine culture. No further action required. Bacteria a a5 sensitive to prescribed antibiotic. Signatures: Mary Mancia FNP-C FNP-Ckb Calderon, Audri, RN RN aa5 Karla Hicks am2 Ashley Isaacs RN RN ll3 Jeni Ramos RN RN ke1 Ivania Dominique, RN RN ha1
--- NOTE | 2022-12-18 22:38 | EDPHYS ---
Physician Documentation [facility] Name: Neva Reyes Age: 22 yrs Sex: Female : 2000 Arrival Date: 12/18/2022 Time: 20:52 Bed 13 Private MD: ED Physician Seth Hand HPI: 12/18 22:12 This 22 yrs old Female presents to ER via Ambulatory with complaints of Pain kb With Urination. 22:12 The patient presents with urinary symptoms, dysuria, frequency. Onset: The kb symptoms/episode began/occurred today. Modifying factors: The symptoms are alleviated by nothing, the symptoms are aggravated by urinating. Associated signs and symptoms: Pertinent positives: dysuria, urinary frequency. Severity of symptoms: At their worst the symptoms were moderate, in the emergency department the symptoms are unchanged. The patient has not experienced similar symptoms in the past. The patient has not recently seen a physician. Historical: - Allergies: 21:12 shrimp; ll3 - Home Meds: 21:12 Vitamin Oral [Active]; ll3 - PSHx: 21:12 section; ll3 - Immunization history:: Client reports having NOT received the Covid vaccine. - Social history:: Smoking status: Patient denies any tobacco usage or history of. ROS: 22:12 Constitutional: Negative for fever, chills, and weight loss. kb 22:12 : Positive for urinary symptoms, urinary frequency, small amounts, burning with urination. 22:12 All other systems are negative. Exam: 22:12 Constitutional: This is a well developed, well nourished patient who is awake, alert, kb and in no acute distress. Head/Face: Normocephalic, atraumatic. ENT: Moist Mucous membranes Cardiovascular: Regular rate and rhythm with a normal S1 and S2. No gallops, murmurs, or rubs. No pulse deficits. Respiratory: Respirations even and unlabored. No increased work of breathing. Talking in full sentences Abdomen/GI: Soft, non-tender. No distention Back: No spinal tenderness. No costovertebral tenderness. Full range of motion. Skin: Warm, dry with normal turgor. Normal color. MS/ Extremity: Pulses equal, no cyanosis. Neurovascular intact. Full, normal range of motion. Neuro: Awake and alert, GCS 15, oriented to person, place, time, and situation. Moves all extremities. Normal gait. Vital Signs: 21:11 BP 95 / 62; Pulse 84; Resp 17; Temp 98.1(O); Pulse Ox 100% on R/A; Weight 92.99 kg (R); ll3 Height 5 ft. 3 in. (160.02 cm) (R); 22:06 BP 111 / 65; Pulse 76; Resp 16; Pulse Ox 100% ; Pain 0/10; ke1 23:10 BP 102 / 64; Pulse 70; Resp 14 S; Pulse Ox 100% on R/A; ha1 21:11 Body Mass Index 36.31 (92.99 kg, 160.02 cm) ll3 MDM: 21:03 Patient medically screened. kb 22:11 Differential diagnosis: UTI, cystitis, pyelonephritis. Data reviewed: vital signs, kb nurses notes. Counseling: I had a detailed discussion with the patient and/or guardian regarding: the historical points, exam findings, and any diagnostic results supporting the discharge/admit diagnosis, lab results, the need for outpatient follow up, a family practitioner, to return to the emergency department if symptoms worsen or persist or if there are any questions or concerns that arise at home. 22:37 Differential diagnosis: urinary tract infection, pyelonephritis. kb 12/18 21:03 Order name: Urine Microscopic Only; Complete Time: 22:37 kb 12/18 22:01 Order name: Urine Dipstick-Ancillary; Complete Time: 22:03 EDMS 12/18 21:03 Order name: Urine Dipstick-Ancillary (obtain specimen); Complete Time: 22:01 kb 12/18 21:03 Order name: Urine Test (obtain specimen); Complete Time: 22:01 kb 12/18 22:01 Order name: Urine --Ancillary (enter results); Complete Time: 22:10 wm 12/18 22:34 Order name: Urine Culture EDMS Administered Medications: No medications were administered Disposition: 23:25 Co-signature as Attending Physician, Seth Hand DO I reviewed the patient's care ms3 provided by the Advanced Practice Provider and agree with the diagnosis and treatment plan. Disposition Summary: 12/18/22 22:38 Discharge Ordered Location: Home kb Condition: Stable kb Diagnosis - UTI/ Urinary tract infection, site not specified kb Followup: kb - With: Emergency Department - When: As needed - Reason: Worsening of condition Followup: kb - With: Private Physician - When: 2 - 3 days - Reason: Recheck today's complaints, Continuance of care, Re-evaluation by your physician Discharge Instructions: - Discharge Summary Sheet kb - Urinary Tract Infection, Adult, [place] kb Forms: - Medication Reconciliation Form kb - Thank You Letter kb - Antibiotic Education kb - Prescription Opioid Use kb Prescriptions: - Augmentin 875-125 mg Oral Tablet - take 1 tablet by ORAL route every 12 hours for 10 days; 20 tablet; Refills: 0, kb Product Selection Permitted Signatures: Dispatcher [employer] EDMS Mary Mancia, CAR BODY INSPECTOR-C CAR BODY INSPECTOR-Seth Wayne DO DO ms3 Ashley Isaacs RN RN ll3
[2022-12-19 00:20] VITALS: TEMP 98.1; O2SAT 100
[2022-12-19 00:21] VITALS: BP 111/65
== END 2022-12-18 23:20 | disposition home or self-care (01) ==
LOC: ER 20:51
DX: N39.0 Urinary tract infection, site not specified (principal); Z91.013 Allergy to seafood
CPT/HCPCS: 81003; 81015; 81025; 87077; 87086; 87088; 87186; 99283

== ENCOUNTER 2023-01-07 11:27 | Emergency (ER) | payer OTHER ==
--- OUTSIDE RECORDS SUMMARY | 2023-01-07 11:33 | XMS REPORT | Continuity of Care Document ---
:2000 Author Organization [facility] t Address [address] [place] [address] Care Team Providers Name Role Phone Nataliia Corey Primary Care Physician [phone] NATALIIA DODSON Attending Clinician Unavailable Nataliia Corey Attending Clinician [phone] Doctor Unassigned, [place] Attending Clinician Unavailable YOLY MEI Attending Clinician Unavailable Provider, Etta Temp Attending Clinician Unavailable Yoly Mei CNM Attending Clinician Peter Vargas Attending Clinician PETER RODRIGUEZ Attending Clinician Unavailable FIDENCIO COOLEY Attending Clinician Unavailable Fidencio Cooley MD Attending Clinician Visit, [place] Nurse Attending Clinician Unavailable Katrin Finn Attending Clinician [phone] BIANKA WAHL Attending Clinician Unavailable Bianka Wahl MD Attending Clinician [phone] Steve Jimenez MD Attending Clinician JUNIOR SANCHEZ Attending Clinician Unavailable Delroy Steele Attending Clinician Junior Sanchez DO Attending Clinician ROCKY CONRAD Attending Clinician Unavailable [place] DUKE, Rocky Carballo Attending Clinician Jennifer Fajardo MD Attending Clinician Amber Conde MD Attending Clinician SHABANA SANCHEZ Attending Clinician Unavailable AUDREY HAYDEN Attending Clinician Unavailable Catracho DUKE, Audrey Lucia Attending Clinician ROSAMARIA SOSA Attending Clinician Unavailable Daisha SHARIF-C, Rosamaria Attending Clinician Lab, Jesus-Rmchp Attending Clinician Unavailable Ultrasound, Ang-Mfm Attending Clinician Unavailable Leola Greco MD Attending Clinician [phone] LEOLA GRECO Attending Clinician Unavailable Leatha Michele MD Attending Clinician LEATHA MICHELE Attending Clinician Unavailable Paul CHRISTOPHER, Doug Yung Attending Clinician Cecile Smith RN Attending Clinician Unavailable Debra Graves RN Attending Clinician Unavailable Janette Thomson MD Attending Clinician JANETTE THOMSON Attending Clinician Unavailable JANETTE THOMSON Attending Clinician Unavailable BIANKA WAHL Admitting Clinician Unavailable Bianka Wahl MD Admitting Clinician [phone] ROCKY CONRAD Admitting Clinician Unavailable [place] Conrad MD Admitting Clinician AUDREY HAYDEN Admitting Clinician Unavailable Audrey Hayden MD Admitting Clinician Payers Payer Name Policy Type Policy Number Effective Date Expiration Date S reese [employer] [id number] 2022 00:00:00 [place]ICAID OF [place] [id number] 2022 00:00:00 Problems Condition Condition Condition Status Onset Resolution Last Treating Co mments Source Name Details Category Date Date Treatment Clinician Date Disease Active 2021-11 U nivers spinal spinal 2-22 ity of headache headache 00:00: [place] [address] Medical Branch Morbid Morbid Disease Active 2021-11 Univers obesity obesity 2-17 [place] of with [place] mass index mass index 00 Me dical of of Branch 40.0-49.9 40.0-49.9 40 weeks 40 weeks Disease Active 2021-11 Unive rs gestation gestation 2-16 ity of of of 00:00: [place] 00 [facility] Branch Excessive Excessive Disease Active 2021-11 Uni vers weight weight 2-03 ity of gain gain 00:00: [place] affecting affecting 00 [facility] Bran ch Refused Refused Disease Active 2021-11 Univers influenza influenza 2-03 ity of vaccine vaccine 00:00: [place] 00 Medical Branch Anemia Anemia Disease Active 2021-11 Univers during during 1-16 [place] in third in third 00 Medica l trimester trimester Bran ch Pain of Pain of Disease Active 2021-11 Univers round round 0-27 ity of ligament ligament 00:00: [place] during during 00 Medical Bran ch Adnexal Adnexal Disease Active Overview: Univ ers cyst cyst 7 Formattin ity of 00:00: g of this [place] 00 note Medical might be Branch different from the original. Noted on usg left side, follow up usg in 3/4 weeks scheduled Left Left Disease Active Overview: Univer s ovarian ovarian 06-18 Formattin ity o f cyst- cyst- 00:00: g of this [place] measuring measuring 00 note [facility] 5.89 x 5.89 x might be Branch 4.51 x 4.51 x different 5.55 cm 5.55 cm from the original. Noted on usg left side, follow up usg in 3/4 weeks scheduled Supervisio Supervisio Disease Active U nivers n of n of 4-29 ity of high-risk high-risk 00:[place] [facility] Nausea and Nausea and Disease Active U nivers vomiting vomiting 4-29 ity of during during 00:00: [place] 00 [facility] Branch Obesity in Obesity in Disease Active U nivers 4-29 ity of 00:00: [place] 00 Medical Branch Allergies, Adverse Reactions, Alerts Allergy Allergy Status Severity Reaction(s) Onset Inactive Treating Comm ents Source Name Type Date Date Clinician SHRIMP DRUG Active Swelling 2022-0 Univers INGREDI 4-29 ity of 00:00: [place] 00 Medical Branch Shrimp Propensi Active Swelling Univer s ty to 03-19 ity of adverse 00:00: [place] reaction Medical s Branch Social History Social Habit Start Date Stop Date Quantity Comments Source ASSERTION 2022-02-12 University 00:00:00 [facility] Exposure to 2022-12-21 2022-12-31 Not sure University SARS-CoV-2 00:00:00 15:44:00 [facility] (event) Branch Alcohol intake 2022-12-21 2022-12-21 Lifetime University of 00:00:00 00:00:00 non-drinker [facility] (finding) [place] Tobacco use and 2022-06-07 2022-06-07 Smokeless tobacco Un iversity of exposure 00:00:00 00:00:00 non-user [facility] Sex Assigned At [birth year] Universit y of 00:00:00 00:00:00 [facility] Smoking Status Start Date Stop Date Source Never smoked tobacco [facility] Medications Ordered Filled Start Stop Current Ordering Indication Dosage Frequency Signature Comments Components Source Medication Medication Date Date Medication? Clinician (SIG) Name Name amoxicillin Yes [id number] TAKE 1 Univers -clavulanat 1-29 TABLET BY ity of e 875-125 00:00: MOUTH [place] mg per 00 EVERY 12 Medical tablet HOURS FOR Branch 10 DAYS FOR INFECTIOUS PROCESS amoxicillin 0 Yes [id number] TAKE 1 Univers -clavulanat 1-29 TABLET BY ity of e 875-125 00:00: MOUTH [place] mg per 00 EVERY 12 Medical tablet HOURS FOR Branch 10 DAYS FOR INFECTIOUS PROCESS amoxicillin 2022-0 Yes [id number] TAKE 1 Univers -clavulanat 1-29 TABLET BY ity of e 875-125 00:00: MOUTH [place] mg per 00 EVERY 12 Medical tablet HOURS FOR Branch 10 DAYS FOR INFECTIOUS PROCESS amoxicillin 2022-0 Yes [id number] TAKE 1 Univers -clavulanat 1-29 TABLET BY ity of e 875-125 00:00: MOUTH [place] mg per 00 EVERY 12 Medical tablet HOURS FOR Branch 10 DAYS FOR INFECTIOUS PROCESS amoxicillin 2022-0 Yes [id number] TAKE 1 Univers -clavulanat 1-29 TABLET BY ity of e 875-125 00:00: MOUTH [place] mg per 00 EVERY 12 Medical tablet HOURS FOR Branch 10 DAYS FOR INFECTIOUS PROCESS butalbital- 2021-11- No 1{tbl} 1 tablet, Univers acetaminoph 2-22 12- Oral, ONCE i ty of en-caff 21:00: 20:11 NOW, 1 [place] (ESGIC) 00 :00 dose, On Medical 50-325-40 Jeanie Branch mg tablet 1 11/11/22 tablet at 1500, Routine butalbital- 2021-11- No 1{tbl} 1 tablet, Univers acetaminoph 2-22 12- Oral, ity of en-caff 00:15: 23:37 ONCE, 1 [place] (ESGIC) 00 :00 dose, On Medical 50-325-40 [...] Urine
D uration of therapy: 72 hours albit2021-11 Yes 1{tbl} Take 1 Univers acetaminoph 2-22 tablet by ity of en-caff 00:00: mouth [place] (ESGIC) 00 every 6 Medical 50-325-40 (six) Branch mg tablet hours. butalbital- 2021-11 Yes 1{tbl} Take 1 Univers acetaminoph 2-22 tablet by ity of en-caff 00:00: mouth [place] (ESGIC) 00 every 6 Medical 50-325-40 (six) Branch mg tablet hours. butalbital2021-11 Yes 1{tbl} Take 1 Univers acetaminoph 2-22 tablet by ity of en-caff 00:00: mouth [place] (ESGIC) 00 every 6 Medical 50-325-40 (six) Branch mg tablet hours. butalbital2021-11 Yes 1{tbl} Take 1 Univers acetaminoph 2-22 tablet by ity of en-caff 00:00: mouth [place] (ESGIC) 00 every 6 Medical 50-325-40 (six) Branch mg tablet hours. butalbital- 2021-11 Yes [id number] 1{tbl} Take 1 Univers acetaminoph 2-22 tablet by ity of en-caff 00:00: mouth [place] (ESGIC) 00 every 6 Medical 50-325-40 (six) Branch mg tablet hours. butalbital- 2021-11 Yes [id number] 1{tbl} Take 1 Univers acetaminoph 2-22 tablet by ity of en-caff 00:00: mouth [place] (ESGIC) 00 every 6 Medical 50-325-40 (six) Branch mg tablet hours. butalbital- 2021-11- No [id number] 1{tbl} Take 1 Univers acetaminoph 2-22 02-02 tablet by it y of en-caff 00:00: 00:00 mouth [place] (ESGIC) 00 :00 every 6 Medical 50-325-40 (six) Branch mg tablet hours. butalbital- 2021-11- No [id number] 1{tbl} Take 1 Univers acetaminoph 2-22 02-02 tablet by it y of en-caff 00:00: 00:00 mouth [place] (ESGIC) 00 :00 every 6 Medical 50-325-40 (six) Branch mg tablet hours. metoclopram 2021-11 Yes 10mg 10 mg, Univ ers max HCl - Oral, AC, ity of (REGLAN) 22:30: First dose [place] tablet 10 00 on Wed Medical mg 11/10/22 Branch at 1630, Until Discontinu ed, Routine diphenhydrA 2021-11- No 50mg 50 mg, Uni vers MINE -11-10 Oral, ity of (BENADRYL) 22:30: 22:26 ONCE, 1 [place] tablet 50 00 :00 dose, On Medica l mg Wed Branch 11/10/22 at 1630, MO cephALEXin 2021-11- Yes [id number] 500mg Take 1 Univers (KEFLEX) -11-18 capsule by ity of 500 mg 00:00: 05:59 mouth in [place] capsule 00 :00 the Medical morning Branch and 1 capsule at noon and 1 capsule in the evening. Do all this for 7 days. cephALEXin 2021-11- Yes [id number] 500mg Take 1 Univers (KEFLEX) 2-21 -29 capsule by ity of 500 mg 00:00: 05:59 mouth in [place] capsule 00 :00 the Medical morning Branch and 1 capsule at noon and 1 capsule in the evening. Do all this for 7 days. cephALEXin 2021-11- Yes [id number] 500mg Take 1 Univers (KEFLEX) 2-21 -29 capsule by ity of 500 mg 00:00: 05:59 mouth in [place] capsule 00 :00 the Medical morning Branch and 1 capsule at noon and 1 capsule in the evening. Do all this for 7 days. cephALEXin 2021-11- Yes [id number] 500mg Take 1 Univers (KEFLEX) 2-10 11- capsule by ity of 500 mg 00:00: 05:59 mouth in [place] capsule 00 :00 the Medical morning Branch and 1 capsule at noon and 1 capsule in the evening. Do all this for 7 days. 2021-11 Yes [id number] 1{tbl} Take 1 Univers vitamin 2-19 tablet by ity of w/FA tablet 00:00: mouth in [place] 00 the Medical morning. Branch docusate 2021-11 Yes [id number] 200mg Take 2 U nivers 100 mg 2-19 capsules ity of capsule 00:00: by mouth [place] 00 once daily Medical as needed Branch for Constipati on. ferrous 2021-11 Yes [id number] 325mg Take 1 Un loli sulfate 325 2-19 tablet by ity of mg (65 mg 00:00: mouth [place] iron[place] 00 the Medical tablet morning Branch and 1 tablet in the evening. ibuprofen 2021-11 Yes [id number] 600mg Take 1 Univers 600 mg 2-19 tablet by ity of tablet 00:00: mouth [place] 00 every 6 Medical (six) Branch hours as needed (Pain). Take with food or milk. 2021-11 Yes [id number] 1{tbl} Take 1 Univers vitamin 2-19 tablet by ity of w/FA tablet 00:00: mouth in [place] 00 the Medical morning. Branch docusate 2021-11 Yes [id number] 200mg Take 2 U nivers 100 mg 2-19 capsules ity of capsule 00:00: by mouth [place] 00 once daily Medical as needed Branch for Constipati on. ferrous 2021-11 Yes [id number] 325mg Take 1 Un loli sulfate 325 2-19 tablet by ity of mg (65 mg 00:00: mouth [place] iron[place] 00 the Medical tablet morning Branch and 1 tablet in the evening. ibuprofen 2021-11 Yes [id number] 600mg Take 1 Univers 600 mg 2-19 tablet by ity of tablet 00:00: mouth [place] 00 every 6 Medical (six) Branch hours as needed (Pain). Take with food or milk. 2021-11 Yes [id number] 1{tbl} Take 1 Univers vitamin 2-19 tablet by ity of w/FA tablet 00:00: mouth in [place] 00 the Medical morning. Branch docusate 2021-11 Yes [id number] 200mg Take 2 U nivers 100 mg 2-19 capsules ity of capsule 00:00: by mouth [place] 00 once daily Medical as needed Branch for Constipati on. ferrous 2021-11 Yes [id number] 325mg Take 1 Un loli sulfate 325 2-19 tablet by ity of mg (65 mg 00:00: mouth [place] iron) 00 the Medical tablet morning Branch and 1 tablet in the evening. ibuprofen 2021-11 Yes [id number] 600mg Take 1 Univers 600 mg 2-19 tablet by ity of tablet 00:00: mouth [place] 00 every 6 Medical (six) Branch hours as needed (Pain). Take with food or milk. 2021-11 Yes [id number] 1{tbl} Take 1 Univers vitamin 2-19 tablet by ity of w/FA tablet 00:00: mouth in [place] 00 the Medical morning. Branch docusate 2021-11 Yes [id number] 200mg Take 2 U nivers 100 mg 2-19 capsules ity of capsule 00:00: by mouth [place] 00 once daily Medical as needed Branch for Constipati on. ferrous 2021-11 Yes [id number] 325mg Take 1 Un loli sulfate 325 2-19 tablet by ity of mg (65 mg 00:00: mouth [place] iron[place] 00 the Medical tablet morning Branch and 1 tablet in the evening. ibuprofen 2021-11 Yes [id number] 600mg Take 1 Univers 600 mg 2-19 tablet by ity of tablet 00:00: mouth [place] 00 every 6 Medical (six) Branch hours as needed (Pain). Take with food or milk. 2021-11 Yes [id number] 1{tbl} Take 1 Univers vitamin 2-19 tablet by ity of w/FA tablet 00:00: mouth in [place] 00 the Medical morning. Branch docusate 2021-11 Yes [id number] 200mg Take 2 U nivers 100 mg 2-19 capsules ity of capsule 00:00: by mouth [place] 00 once daily Medical as needed Branch for Constipati on. ferrous 2021-11 Yes [id number] 325mg Take 1 Un loli sulfate 325 2-19 tablet by ity of mg (65 mg 00:00: mouth [place] iron) 00 the Medical tablet morning Branch and 1 tablet in the evening. ibuprofen 2021-11 Yes [id number] 600mg Take 1 Univers 600 mg 2-19 tablet by ity of tablet 00:00: mouth [place] 00 every 6 Medical (six) Branch hours as needed (Pain). Take with food or milk. 2021-11 Yes [id number] 1{tbl} Take 1 Univers vitamin 2-19 tablet by ity of w/FA tablet 00:00: mouth in [place] 00 the Medical morning. Branch docusate 2021-11 Yes [id number] 200mg Take 2 U nivers 100 mg 2-19 capsules ity of capsule 00:00: by mouth [place] 00 once daily Medical as needed Branch for Constipati on. ferrous 2021-11 Yes [id number] 325mg Take 1 Un loli sulfate 325 2-19 tablet by ity of mg (65 mg 00:00: mouth [place] iron) 00 the Medical tablet morning Branch and 1 tablet in the evening. ibuprofen 2021-11 Yes [id number] 600mg Take 1 Univers 600 mg 2-19 tablet by ity of tablet 00:00: mouth [place] 00 every 6 Medical (six) Branch hours as needed (Pain). Take with food or milk. 2021-11 Yes [id number] 1{tbl} Take 1 Univers vitamin 2-19 tablet by ity of w/FA tablet 00:00: mouth in [place] 00 the Medical morning. Branch docusate 2021-11 Yes [id number] 200mg Take 2 U nivers 100 mg 2-19 capsules ity of capsule 00:00: by mouth [place] 00 once daily Medical as needed Branch for Constipati on. ferrous 2021-11 Yes [id number] 325mg Take 1 Un loli sulfate 325 2-19 tablet by ity of mg (65 mg 00:00: mouth [place] iron[place] 00 the Medical tablet morning Branch and 1 tablet in the evening. ibuprofen 2021-11 Yes [id number] 600mg Take 1 Univers 600 mg 2-19 tablet by ity of tablet 00:00: mouth [place] 00 every 6 Medical (six) Branch hours as needed (Pain). Take with food or milk. 2021-11 Yes [id number] 1{tbl} Take 1 Univers vitamin 2-19 tablet by ity of w/FA tablet 00:00: mouth in [place] 00 the Medical morning. Branch docusate 2021-11 Yes [id number] 200mg Take 2 U nivers 100 mg 2-19 capsules ity of capsule 00:00: by mouth [place] 00 once daily Medical as needed Branch for Constipati on. ferrous 2021-11 Yes [id number] 325mg Take 1 Un loli sulfate 325 2-19 tablet by ity of mg (65 mg 00:00: mouth [place] iron[place] 00 the Medical tablet morning Branch and 1 tablet in the evening. ibuprofen 2021-11 Yes [id number] 600mg Take 1 Univers 600 mg 2-19 tablet by ity of tablet 00:00: mouth [place] 00 every 6 Medical (six) Branch hours as needed (Pain). Take with food or milk. 2021-11 Yes [id number] 1{tbl} Take 1 Univers vitamin 2-19 tablet by ity of w/FA tablet 00:00: mouth in [place] 00 the Medical morning. Branch docusate 2021-11 Yes [id number] 200mg Take 2 U nivers 100 mg 2-19 capsules ity of capsule 00:00: by mouth [place] 00 once daily Medical as needed Branch for Constipati on. ferrous 2021-11 Yes [id number] 325mg Take 1 Un loli sulfate 325 2-19 tablet by ity of mg (65 mg 00:00: mouth [place] iron) 00 the Medical tablet morning Branch and 1 tablet in the evening. ibuprofen 2021-11 Yes [id number] 600mg Take 1 Univers 600 mg 2-19 tablet by ity of tablet 00:00: mouth [place] 00 every 6 Medical (six) Branch hours as needed (Pain). Take with food or milk. 2021-11- No [id number] 1{tbl} Take 1 Univers vitamin 2-19 -02 tablet by ity of w/FA tablet 00:00: 00:00 mouth in [place] 00 :00 the Medical morning. Branch docusate 2021-11- No [id number] 200mg Take 2 Univers 100 mg 2-19 -02 capsules ity of capsule 00:00: 00:00 by mouth [place] 00 :00 once daily Medical as needed Branch for Constipati on. ferrous 2021-11- No [id number] 325mg Take 1 U nivers sulfate 325 -09 01- tablet by it y of mg (65 mg 00:00: 00:00 mouth in [place] iron) 00 :00 the Medical tablet morning Branch and 1 tablet in the evening. ibuprofen 2021-11- No [id number] 600mg Take 1 Univers 600 mg 2-09 01- tablet by ity of tablet 00:00: 00:00 mouth [place] 00 :00 every 6 Medical (six) Branch hours as needed (Pain). Take with food or milk. 2021-11- No [id number] 1{tbl} Take 1 Univers vitamin 2-19 -02 tablet by ity of w/FA tablet 00:00: 00:00 mouth in [place] 00 :00 the Medical morning. Branch docusate 2021-11- No [id number] 200mg Take 2 Univers 100 mg 2-19 -02 capsules ity of capsule 00:00: 00:00 by mouth [place] 00 :00 once daily Medical as needed Branch for Constipati on. ferrous 2021-11- No [id number] 325mg Take 1 U nivers sulfate 325 2-09 01-02 tablet by it y of mg (65 mg 00:00: 00:00 mouth in [place] iron) 00 :00 the Medical tablet morning Branch and 1 tablet in the evening. ibuprofen 2021-11- No [id number] 600mg Take 1 Univers 600 mg 01-09 tablet by ity of tablet 00:00: 00:00 [...] [place] E)) 11 Starting Medical chewable on [place] Branch tablet 160 11/07/22 mg at 0446, [...] 11 Starting Medi natalie tablet 1 on [place] Branch tablet 11/07/22 at 0446, Until Discontinu [...] 2-18 Rectal, ity of suppository 10:46: QDAILYPRN, [place] 10 mg 11 Starting Medical on Sun [...] Yes 5mg 5 mg, Univer s (NUBAIN) 2- Intravenou ity o f injection 5 08:32: s, PRN, 1 [place] mg 34 dose, Medical Starting Branch on 11/07/22 at 0232, Until Discontinu ed, Routine, itching, PACU naloxone 2021-11- Yes .4mg 0.4 mg, Unive rs (NARCAN) 01-08- Slow IV ity of injection 08:32: 08:31 Push, PRN [place] 0.4 mg 34 :34 - SEE Medical INSTRUCTIO Branch NS, Starting on 11/07/22 at 0232, Until Tue11/09/22 at 0231, Routine, [...] 07:22: INTRA [place] ) injection 00 PROCEDURE, Sd dical Starting Branch on Tue11/07/22 at 0122, Until Discontinu ed, Routine, Intra-op diphenhydrA 2021-11 Yes Slow IV Uni vers MINE 2-18 Push, ONCE ity of (BENADRYL) 07:20: INTRA [place] injection 00 PROCEDURE, [facility] Starting Branch on Tue11/07/22 at 0120, Until Discontinu ed, Routine, Intra-op ondansetron 2021-11 Yes Slow IV Uni vers (ZOFRAN 2-18 Push, ONCE ity of (PF)) 07:20: INTRA [place] injection 00 PROCEDURE, [facility] Starting Branch on Tue11/07/22 at 0120, Until Discontinu ed, Routine, Intra-op oxytocin 2021-11 Yes IV Univers (PITOCIN) 2-18 Infusion, ity o f 30 units in 07:13: CONTINUOUS [place] NS 500 mL 00 PRN, Medical IV infusion Starting Bran ch on Tue11/07/22 at 0113, Until Discontinu ed, Routine, Intra-op lactated 2021-11 Yes IV Univers ringers IV 2-18 Infusion, ity of infusion 06:52: CONTINUOUS [place] 00 PRN, Medical Starting Branch on [place] 11/07/22 at 0052, Until Discontinu ed, Routine, [...] -acetaminop 2-18 12-18 Oral, ity of hen (NORCO 06:34: 18:52 [...] Yes 500mg 500 mg, IV Univers n 211-08 Piggyback, ity of (ZITHROMAX) 06:02: 06:01 O.R. [place] 500 mg in 05 :05 HOLDING Medical NaCl 0.9% ONCE, Branch (NS) 250 mL Starting VIAL-MATE on Sun IV 11/07/22 piggyback at 0002, Until 11/08/22 at 0001, Administer over 60 Minutes, 250 mL
Reas on for Anti-Infec tive: Surgical Prophylaxi s
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
Duration of therapy: within 24 hours of [...] Surgical Prophylaxi s
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
Duration of therapy: within 24 hours of surgery diphenhydrA 2021-11- No 25mg 25 mg, Uni vers MINE 01-08 Intravenou ity of (BENADRYL) 05:15: 04:26 s, ONCE, 1 [place] injection 00 :00 dose, On Medica l 25 mg Sat Branch 11/06/22 at 2315, Routine tobramycin 2021-11- [...] 2021-11- No 1000mg 1,000 mg, Univers en 18 -18 Oral, ity of (TYLENOL) 02:30: 01:36 ONCE, 1 [place] tablet 00 :00 dose, On Medical 1,000 mg Sat Branch 11/06/22 at 2030, Routine hydrOXYzine 2021-11- No 10mg 10 mg, Uni vers (ATARAX) 01-07 Oral, ity of tablet 10 21:30: 20:39 ONCE, 1 [place] mg 00 :00 dose, On Medical [facility] Branch 11/06/22 at 1530, Routine FENTanyl PF 2021-11- No 50ug 50 mcg, Un loli (SUBLIMAZE 01-07- Slow IV ity o f (PF)) 21:30: 21:21 Push, [place] injection 00 :00 ONCE, 1 Medical 50 mcg dose, On Branch [facility] 11/06/22 at 1530, Routine PIB 2021-11 Yes Epidural, Univers ropivacaine 2-17 CONTINUOUS it y of 0.2 % 05:35: PRN, [place] (NAROPIN 00 Starting Medical (PF)) on Tue Branch epidural 11/05/22 infusion at 2335, Until Discontinu ed, Routine, Intra-op lidocaine-e 2021-11 Yes Intravenou Univers pinephrine 2-17 s, ONCE ity of (XYLOCAINE 05:30: INTRA [place] W/EPINEPHRI 00 PROCEDURE, Sd dical NE) 2 Starting Branch %-1:200,000 on [...] dose, On Tue11/05/22 at 1830, Routine butorphanol 2021-11 No 1mg 1 mg, Univ ers (STADOL) 01-07 Intravenou ity of injection 1 00:15: 00:10 s, ONCE, 1 [place] mg 00 :00 dose, On [facility] 11/05/22 at 1815, Routine butorphanol 2021-11 No 1mg 1 mg, Univ ers (STADOL) 01-06 Intravenou ity of injection 1 17:45: 16:46 s, ONCE, 1 [place] mg 00 :00 dose, On [facility] 11/05/22 at 1145, Routine lidocaine 2021-11 Yes [...] 0854, Until Discontinu ed, Routine sodium 2021-11 30mL 30 mL, Univers citrate-cit 2-16 -17 Oral, ity of cricket acid 14:54: 04:15 PRE-PROCED [place] (BICITRA) 23 :00 URE ONCE, Medic al 500-334 1 dose, Branch mg/5 mL Starting solution 30 on Tue11/05/22 at 0854, Until Discontinu ed, Routine, Surgery/Pr ocedure tolnaftate 2021-11 Yes [id number] Apply to Univers (TINACTIN) 1-11 area(s) 2 ity of 1 % cream 00:00: (two) [place] 00 times Medical daily. Branch Until rash clears plus 2 more weeks tolnaftate 2021- Yes [id number] Apply to Univers (TINACTIN) 1-11 area(s) 2 ity of 1 % cream 00:00: (two) [place] 00 times Medical daily. Branch Until rash clears plus 2 more weeks tolnaftate 2021-11 Yes [id number] Apply to Univers (TINACTIN) 1-11 area(s) 2 ity of 1 % cream 00:00: (two) [place] 00 times Medical daily. Branch Until rash clears plus 2 more weeks tolnaftate 2021-11 Yes [id number] Apply to Univers (TINACTIN) 1-11 area(s) 2 ity of 1 % cream 00:00: (two) [place] 00 times Medical daily. Branch Until rash clears plus 2 more weeks tolnaftate 2021-11 Yes [id number] Apply to Univers (TINACTIN) 1-11 area(s) 2 ity of 1 % cream 00:00: (two) [place] 00 times Medical daily. Branch Until rash clears plus 2 more weeks tolnaftate 2021-11 Yes [id number] Apply to Univers (TINACTIN) 1-11 area(s) 2 ity of 1 % cream 00:00: (two) [place] 00 times Medical daily. Branch Until rash clears plus 2 more weeks tolnaftate 2021-11 Yes [id number] Apply to Univers (TINACTIN) 1-11 area(s) 2 ity of 1 % cream 00:00: (two) [place] 00 times Medical daily. Branch Until rash clears plus 2 more weeks tolnaftate 2021- Yes [id number] Apply to Univers (TINACTIN) 1-11 area(s) 2 ity of 1 % cream 00:00: (two) [place] 00 times Medical daily. Branch Until rash clears plus 2 more weeks tolnaftate 2021- Yes [id number] Apply to Univers (TINACTIN) 1-11 area(s) 2 ity of 1 % cream 00:00: (two) [place] 00 times Medical daily. Branch Until rash clears plus 2 more weeks tolnaftate 2- Yes [id number] Apply to Univers (TINACTIN) 1-11 area(s) 2 ity of 1 % cream 00:00: (two) [place] 00 times Medical daily. Branch Until rash clears plus 2 more weeks tolnaftate 2021- Yes [id number] Apply to Univers (TINACTIN) 1-11 area(s) 2 ity of 1 % cream 00:00: (two) [place] 00 times Medical daily. Branch Until rash clears plus 2 more weeks tolnaftate 2021- Yes [id number] [facility] to [facility] (TINACTIN) 1-11 area(s) 2 ity of 1 % cream 00:00: (two) [place] 00 times Medical daily. Branch Until rash clears plus 2 more weeks tolnaftate 2021-11 Yes [id number] Apply to [facility] (TINACTIN) 1-11 area(s) 2 ity of 1 % cream 00:00: (two) [place] 00 times Medical daily. Branch Until rash clears plus 2 more weeks tolnaftate 2021-11 Yes [id number] Apply to [facility] (TINACTIN) 1-11 area(s) 2 ity of 1 % cream 00:00: (two) [place] 00 times Medical daily. Branch Until rash clears plus 2 more weeks tolnaftate 2021-11 Yes [id number] Apply to [facility] (TINACTIN) 1-11 area(s) 2 ity of 1 % cream 00:00: (two) [place] 00 times Medical daily. Branch Until rash clears plus 2 more weeks tolnaftate 2021- Yes [id number] Apply to [facility] (TINACTIN) 1-11 area(s) 2 ity of 1 % cream 00:00: (two) [place] 00 times Medical daily. Branch Until rash clears plus 2 more weeks tolnaftate 2021- Yes [id number] Apply to [facility] (TINACTIN) 1-11 area(s) 2 ity of 1 % cream 00:00: (two) [place] 00 times Medical daily. Branch Until rash clears plus 2 more weeks tolnaftate 2021- Yes [id number] Apply to [facility] (TINACTIN) 1-11 area(s) 2 ity of 1 % cream 00:00: (two) [place] 00 times Medical daily. Branch Until rash clears plus 2 more weeks tolnaftate 2021- Yes [id number] Apply to [facility] (TINACTIN) 1-11 area(s) 2 ity of 1 % cream 00:00: (two) [place] 00 times Medical daily. Branch Until rash clears plus 2 more weeks tolnaftate 2021-11 Yes [id number] Apply to [facility] (TINACTIN) 12-01 area(s) 2 ity of 1 % cream 00:00: (two) [place] 00 times Medical daily. Branch Until rash clears plus 2 more weeks tolnaftate 2021-11- No [id number] Apply to [facility] (TINACTIN) 12-01 area(s) 2 ity of 1 % cream 00:00: 00:00 (two) [place] 00 :00 times Medical daily. Branch Until rash clears plus 2 more weeks tolnaftate 2021-11- No [id number] Apply to [facility] (TINACTIN) 12-01 area(s) 2 ity of 1 % cream 00:00: 00:00 (two) [place] 00 :00 times Medical daily. Branch Until rash clears plus 2 more weeks ascorbic Yes [id number] 500mg Take 1 [facility] acid, 9-16 tablet by ity of vitamin C, 00:00: mouth [place] 500 mg 00 the Medical tablet morning Branch and 1 tablet at noon and 1 tablet in the evening. ferrous 2021- Yes [id number] 325mg Take 1 [facility] loli sulfate 325 9-16 tablet by [facility] mg (65 mg 00:00: [place] 00 the [facility] tablet morning Branch and 1 tablet in the evening. ascorbic Yes [id number] 500mg Take 1 [facility] acid, 9-16 tablet by ity of vitamin C, 00:00: mouth [place] 500 mg 00 the Medical tablet morning Branch and 1 tablet at noon and 1 tablet in the evening. ferrous 2021-0 Yes [id number] 325mg Take 1 [facility] loli sulfate 325 9-16 tablet by [facility] mg (65 mg 00:00: [place] 00 the [facility] tablet morning Branch and 1 tablet in the evening. ascorbic 2021-0 Yes [id number] 500mg Take 1 [facility] acid, 9-16 tablet by ity of vitamin C, 00:00: mouth [place] 500 mg 00 the Medical tablet morning Branch and 1 tablet at noon and 1 tablet in the evening. ferrous 2021-0 Yes [id number] 325mg Take 1 [facility] loli sulfate 325 9-16 tablet by [facility] of mg (65 mg 00:00: [place] 00 the Medical tablet morning Branch and 1 tablet in the evening. ascorbic 2021-0 Yes [id number] 500mg Take 1 [facility] acid, 9-16 tablet by ity of vitamin C, 00:00: mouth [place] 500 mg 00 the Medical tablet morning Branch and 1 tablet at noon and 1 tablet in the evening. ferrous 2021-0 Yes [id number] 325mg Take 1 [facility] loli sulfate 325 9-16 tablet by [facility] of mg (65 mg 00:00: [place] 00 the Medical tablet morning Branch and 1 tablet in the evening. ascorbic 2021-0 Yes [id number] 500mg Take 1 [facility] acid, 9-16 tablet by ity of vitamin C, 00:00: mouth [place] 500 mg 00 the Medical tablet morning Branch and 1 tablet at noon and 1 tablet in the evening. ferrous 2021-0 Yes [id number] 325mg Take 1 [facility] loli sulfate 325 9-16 tablet by [facility] of mg (65 mg 00:00: mouth [place] 00 the Medical tablet morning Branch and 1 tablet in the evening. ascorbic 0 Yes [id number] 500mg Take 1 [facility] acid, 9-16 tablet by ity of vitamin C, 00:00: mouth [place] 500 mg 00 the Medical tablet morning Branch and 1 tablet at noon and 1 tablet in the evening. ferrous 2021-0 Yes [id number] 325mg Take 1 [facility] loli sulfate 325 9-16 tablet by [facility] of mg (65 mg 00:00: mouth [place] 00 the Medical tablet morning Branch and 1 tablet in the evening. ascorbic 2021-0 Yes [id number] 500mg Take 1 [facility] acid, 9-16 tablet by ity of vitamin C, 00:00: mouth [place] 500 mg 00 the Medical tablet morning Branch and 1 tablet at noon and 1 tablet in the evening. ferrous 2021-0 Yes [id number] 325mg Take 1 [facility] loli sulfate 325 9-16 tablet by [facility] of mg (65 mg 00:00: mouth [place] 00 the Medical tablet morning Branch and 1 tablet in the evening. ascorbic 2021-0 Yes [id number] 500mg Take 1 [facility] acid, 9-16 tablet by ity of vitamin C, 00:00: mouth [place] 500 mg 00 the Medical tablet morning Branch and 1 tablet at noon and 1 tablet in the evening. ferrous 2021-0 Yes [id number] 325mg Take 1 [facility] loli sulfate 325 9-16 tablet by [facility] of mg (65 mg 00:00: mouth [place] 00 the Medical tablet morning Branch and 1 tablet in the evening. ascorbic 2021-0 Yes [id number] 500mg Take 1 [facility] acid, 9-16 tablet by ity of vitamin C, 00:00: mouth [place] 500 mg 00 the Medical tablet morning Branch and 1 tablet at noon and 1 tablet in the evening. ferrous 0 Yes [id number] 325mg Take 1 [facility] loli sulfate 325 9-16 tablet by [facility] of mg (65 mg 00:00: mouth [place] 00 the Medical tablet morning Branch and 1 tablet in the evening. ascorbic 2021-0 Yes [id number] 500mg Take 1 [facility] acid, 9-16 tablet by ity of vitamin C, 00:00: mouth [place] 500 mg 00 the Medical tablet morning Branch and 1 tablet at noon and 1 tablet in the evening. ferrous 0 Yes [id number] 325mg Take 1 [facility] loli sulfate 325 9-16 tablet by [facility] of mg (65 mg 00:00: mouth [place] 00 the Medical tablet morning Branch and 1 tablet in the evening. ascorbic 2021-0 Yes [id number] 500mg Take 1 [facility] acid, 9-16 tablet by ity of vitamin C, 00:00: mouth [place] 500 mg 00 the Medical tablet morning Branch and 1 tablet at noon and 1 tablet in the evening. ferrous 2021-0 Yes [id number] 325mg Take 1 [facility] loli sulfate 325 9-16 tablet by [facility] of mg (65 mg 00:00: mouth [place] 00 the Medical tablet morning Branch and 1 tablet in the evening. ascorbic 2021-0 Yes [id number] 500mg Take 1 [facility] n[facility] acid, 9-16 tablet by ity of vitamin C, 00:00: mouth [place] 500 mg 00 the Medical tablet morning Branch and 1 tablet at noon and 1 tablet in the evening. ferrous 2021-0 Yes [id number] 325mg Take 1 [facility] loli sulfate 325 9-16 tablet by [facility] of mg (65 mg 00:00: mouth [place] 00 the Medical tablet morning Branch and 1 tablet in the evening. ascorbic 2021-0 Yes [id number] 500mg Take 1 [facility] n[facility] acid, 9-16 tablet by ity of vitamin C, 00:00: mouth [place] 500 mg 00 the Medical tablet morning Branch and 1 tablet at noon and 1 tablet in the evening. ferrous 2021-0 Yes [id number] 325mg Take 1 [facility] loli sulfate 325 9-16 tablet by [facility] of mg (65 mg 00:00: mouth [place] 00 the Medical tablet morning Branch and 1 tablet in the evening. ascorbic 2021-0 Yes [id number] 500mg Take 1 [facility] n[facility] acid, 9-16 tablet by ity of vitamin C, 00:00: mouth [place] 500 mg 00 the Medical tablet morning Branch and 1 tablet at noon and 1 tablet in the evening. ferrous 2021-0 Yes [id number] 325mg Take 1 [facility] loli sulfate 325 9-16 tablet by [facility] of mg (65 mg 00:00: [place] 00 the Medical tablet morning Branch and 1 tablet in the evening. ascorbic 0 Yes [id number] 500mg Take 1 [facility] n[facility] acid, 9-16 tablet by ity of vitamin C, 00:00: mouth [place] 500 mg 00 the Medical tablet morning Branch and 1 tablet at noon and 1 tablet in the evening. ferrous 2021-0 Yes [id number] 325mg Take 1 [facility] loli sulfate 325 9-16 tablet by [facility] mg (65 mg 00:00: [place] 00 the Medical tablet morning Branch and 1 tablet in the evening. ascorbic 2021-0 Yes [id number] 500mg Take 1 [facility] acid, 9-16 tablet by ity of vitamin C, 00:00: mouth [place] 500 mg 00 the Medical tablet morning Branch and 1 tablet at noon and 1 tablet in the evening. ferrous 2021-0 Yes [id number] 325mg Take 1 [facility] loli sulfate 325 9-16 tablet by [facility] mg (65 mg 00:00: [place] 00 the Medical tablet morning Branch and 1 tablet in the evening. ascorbic 2021-0 Yes [id number] 500mg Take 1 [facility] n[facility] acid, 9-16 tablet by ity of vitamin C, 00:00: mouth [place] 500 mg 00 the Medical tablet morning Branch and 1 tablet at noon and 1 tablet in the evening. ferrous 2021-0 Yes [id number] 325mg Take 1 [facility] loli sulfate 325 9-16 tablet by [facility] mg (65 mg 00:00: mouth [place] 00 the Medical tablet morning Branch and 1 tablet in the evening. ascorbic 2021-0 Yes [id number] 500mg Take 1 [facility] nivers acid, 9-16 tablet by ity of vitamin C, 00:00: mouth [place] 500 mg 00 the Medical tablet morning Branch and 1 tablet at noon and 1 tablet in the evening. ferrous Yes [id number] 325mg Take 1 Un loli sulfate 325 9-16 tablet by [facility] of mg (65 mg 00:00: mouth [place] 00 the Medical tablet morning Branch and 1 tablet in the evening. ascorbic 0 Yes [id number] 500mg Take 1 [facility] nivers acid, 9-16 tablet by ity of vitamin C, 00:00: mouth [place] 500 mg 00 the Medical tablet morning Branch and 1 tablet at noon and 1 tablet in the evening. ferrous 2021-0 Yes [id number] 325mg Take 1 Un loli sulfate 325 9-16 tablet by [facility] of mg (65 mg 00:00: mouth [place] 00 the Medical tablet morning Branch and 1 tablet in the evening. ascorbic 2021-0 Yes [id number] 500mg Take 1 [facility] nivers acid, 9-16 tablet by ity of vitamin C, 00:00: mouth [place] 500 mg 00 the Medical tablet morning Branch and 1 tablet at noon and 1 tablet in the evening. ferrous 2021-0 Yes [id number] 325mg Take 1 Un loli sulfate 325 9-16 tablet by [facility] of mg (65 mg 00:00: mouth [place] 00 the Medical tablet morning Branch and 1 tablet in the evening. ascorbic 2021-0 Yes [id number] 500mg Take 1 [facility] nivers acid, 9-16 tablet by ity of vitamin C, 00:00: mouth [place] 500 mg 00 the Medical tablet morning Branch and 1 tablet at noon and 1 tablet in the evening. ferrous 2022-0 Yes [id number] 325mg Take 1 Un loli sulfate 325 9-16 tablet by [facility] of mg (65 mg 00:00: mouth [place] 00 the Medical tablet morning Branch and 1 tablet in the evening. ascorbic 0 Yes [id number] 500mg Take 1 [facility] nivers acid, 9-16 tablet by ity of vitamin C, 00:00: mouth [place] 500 mg 00 the Medical tablet morning Branch and 1 tablet at noon and 1 tablet in the evening. ferrous 0 Yes [id number] 325mg Take 1 Un loli sulfate 325 9-16 tablet by [facility] of mg (65 mg 00:00: mouth [place] 00 the Medical tablet morning Branch and 1 tablet in the evening. ascorbic 0 Yes [id number] 500mg Take 1 [facility] nivers acid, 9-16 tablet by ity of vitamin C, 00:00: mouth [place] 500 mg 00 the Medical tablet morning Branch and 1 tablet at noon and 1 tablet in the evening. ferrous 0 Yes [id number] 325mg Take 1 Un loli sulfate 325 9-16 tablet by ity of mg (65 mg 00:00: mouth [place] iron[place] 00 the Medical tablet morning Branch and 1 tablet in the evening. ascorbic 0 Yes [id number] 500mg Take 1 [facility] nivers acid, 9-16 tablet by ity of vitamin C, 00:00: mouth [place] 500 mg 00 the Medical tablet morning Branch and 1 tablet at noon and 1 tablet in the evening. ferrous 0 Yes [id number] 325mg Take 1 Un loli sulfate 325 9-16 tablet by ity of mg (65 mg 00:00: mouth [place] 00 the Medical tablet morning Branch and 1 tablet in the evening. ascorbic 0 Yes [id number] 500mg Take 1 [facility] nivers acid, 9-16 tablet by ity of vitamin C, 00:00: mouth [place] 500 mg 00 the Medical tablet morning Branch and 1 tablet at noon and 1 tablet in the evening. ferrous 0 Yes [id number] 325mg Take 1 Un loli sulfate 325 9-16 tablet by [facility] of mg (65 mg 00:00: mouth [place] 00 the Medical tablet morning Branch and 1 tablet in the evening. ascorbic Yes [id number] 500mg Take 1 [facility] nivers acid, 9-16 tablet by ity of vitamin C, 00:00: mouth [place] 500 mg 00 the Medical tablet morning Branch and 1 tablet at noon and 1 tablet in the evening. ferrous Yes [id number] 325mg Take 1 Un loli sulfate 325 9-16 tablet by [facility] of mg (65 mg 00:00: mouth [place] iron[place] 00 the Medical tablet morning Branch and 1 tablet in the evening. ascorbic 2022- No [id number] 500mg Take 1 [facility] acid, 08-06 tablet by ity of vitamin C, 00:00: 00:00 mouth in [place] 500 mg 00 :00 the Medical tablet morning Branch and 1 tablet at noon and 1 tablet in the evening. ferrous 2022- No [id number] 325mg Take 1 U nivers sulfate 325 08-06 tablet by it y of mg (65 mg 00:00: 00:00 mouth [place] iron) 00 :00 the Medical tablet morning Branch and 1 tablet in the evening. ascorbic 2022- No [id number] 500mg Take 1 [facility] acid, 08-06 tablet by ity of vitamin C, 00:00: 00:00 mouth in [place] 500 mg 00 :00 the Medical tablet morning Branch and 1 tablet at noon and 1 tablet in the evening. ferrous 2022- No [id number] 325mg Take 1 U nivers sulfate 325 08-06 tablet by it y of mg (65 mg 00:00: 00:00 mouth [place] iron) 00 :00 the Medical tablet morning Branch and 1 tablet in the evening. PNV 67-iron Yes [id number] 1{each} Take 1 [facility] ps-folate 4-29 Each by ity of no.1-dha 00:00: mouth [place] (VITAFOL 00 daily. Medical ULTRA) 29 Branch mg iron- 1 mg-200 mg Cap PNV 67-iron Yes [id number] 1{each} Take 1 [facility] ps-folate 4-29 Each by ity of no.1-dha 00:00: mouth [place] (VITAFOL 00 daily. Medical ULTRA) 29 Branch mg iron- 1 mg-200 mg Cap PNV 67-iron 2022-0 Yes [id number] 1{each} Take 1 [facility] ps-folate 4-29 Each by ity of no.1-dha 00:00: mouth [place] (VITAFOL 00 daily. Medical ULTRA) 29 Branch mg iron- 1 mg-200 mg Cap proMETHazin 2-0 Yes [id number] 25mg Take 1 [facility] e 25 mg 4-29 tablet by ity of tablet 00:00: mouth [place] 00 every 6 Medical (six) Branch hours as needed for Nausea and Vomiting (N/V). PNV 67-iron 2022-0 Yes [id number] 1{each} Take 1 [facility] ps-folate 4-29 Each by ity of no.1-dha 00:00: mouth [place] (VITAFOL 00 daily. Medical ULTRA) 29 Branch mg iron- 1 mg-200 mg Cap proMETHazin 2-0 Yes [id number] 25mg Take 1 [facility] e 25 mg 4-29 tablet by ity of tablet 00:00: mouth [place] 00 every 6 Medical (six) Branch hours as needed for Nausea and Vomiting (N/V). PNV 67-iron 2022-0 Yes [id number] 1{each} Take 1 [facility] ps-folate 4-29 Each by ity of no.1-dha 00:00: mouth [place] (VITAFOL 00 daily. Medical ULTRA) 29 Branch mg iron- 1 mg-200 mg Cap proMETHazin 2-0 Yes [id number] 25mg Take 1 [facility] e 25 mg 4-29 tablet by ity of tablet 00:00: mouth [place] 00 every 6 Medical (six) Branch hours as needed for Nausea and Vomiting (N/V). PNV 67-iron 2022-0 Yes [id number] 1{each} Take 1 [facility] ps-folate 4-29 Each by ity of no.1-dha 00:00: mouth [place] (VITAFOL 00 daily. Medical ULTRA) 29 Branch mg iron- 1 mg-200 mg Cap proMETHazin 2022-0 Yes [id number] 25mg Take 1 [facility] e 25 mg 4-29 tablet by ity of tablet 00:00: mouth [place] 00 every 6 Medical (six) Branch hours as needed for Nausea and Vomiting (N/V). PNV 67-iron 2022-0 Yes [id number] 1{each} Take 1 [facility] ps-folate 4-29 Each by ity of no.1-dha 00:00: mouth [place] (VITAFOL 00 daily. Medical ULTRA) 29 Branch mg iron- 1 mg-200 mg Cap proMETHazin 2022-0 Yes [id number] 25mg Take 1 [facility] e 25 mg 4-29 tablet by ity of tablet 00:00: mouth [place] 00 every 6 Medical (six) Branch hours as needed for Nausea and Vomiting (N/V). PNV 67-iron 2022-0 Yes [id number] 1{each} Take 1 [facility] ps-folate 4-29 Each by ity of no.1-dha 00:00: mouth [place] (VITAFOL 00 daily. Medical ULTRA) 29 Branch mg iron- 1 mg-200 mg Cap proMETHazin 2022-0 Yes [id number] 25mg Take 1 [facility] e 25 mg 4-29 tablet by ity of tablet 00:00: mouth [place] 00 every 6 Medical (six) Branch hours as needed for Nausea and Vomiting (N/V). PNV 67-iron 2022-0 Yes [id number] 1{each} Take 1 [facility] ps-folate 4-29 Each by ity of no.1-dha 00:00: mouth [place] (VITAFOL 00 daily. Medical ULTRA) 29 Branch mg iron- 1 mg-200 mg Cap proMETHazin 2-0 Yes [id number] 25mg Take 1 [facility] e 25 mg 4-29 tablet by ity of tablet 00:00: mouth [place] 00 every 6 Medical (six) Branch hours as needed for Nausea and Vomiting (N/V). PNV 67-iron 2022-0 Yes [id number] 1{each} Take 1 [facility] ps-folate 4-29 Each by ity of no.1-dha 00:00: mouth [place] (VITAFOL 00 daily. Medical ULTRA) 29 Branch mg iron- 1 mg-200 mg Cap proMETHazin 2022-0 Yes [id number] 25mg Take 1 [facility] e 25 mg 4-29 tablet by ity of tablet 00:00: mouth [place] 00 every 6 Medical (six) Branch hours as needed for Nausea and Vomiting (N/V). PNV 67-iron 2022-0 Yes [id number] 1{each} Take 1 [facility] ps-folate 4-29 Each by ity of no.1-dha 00:00: mouth [place] (VITAFOL 00 daily. Medical ULTRA) 29 Branch mg iron- 1 mg-200 mg Cap proMETHazin 2022-0 Yes [id number] 25mg Take 1 [facility] e 25 mg 4-29 tablet by ity of tablet 00:00: mouth [place] 00 every 6 Medical (six) Branch hours as needed for Nausea and Vomiting (N/V). PNV 67-iron 2022-0 Yes [id number] 1{each} Take 1 [facility] ps-folate 4-29 Each by ity of no.1-dha 00:00: mouth [place] (VITAFOL 00 daily. Medical ULTRA) 29 Branch mg iron- 1 mg-200 mg Cap proMETHazin 2022-0 Yes [id number] 25mg Take 1 [facility] e 25 mg 4-29 tablet by ity of tablet 00:00: mouth [place] 00 every 6 Medical (six) Branch hours as needed for Nausea and Vomiting (N/V). PNV 67-iron 2022-0 Yes [id number] 1{each} Take 1 [facility] ps-folate 4-29 Each by ity of no.1-dha 00:00: mouth [place] (VITAFOL 00 daily. Medical ULTRA) 29 Branch mg iron- 1 mg-200 mg Cap proMETHazin 2-0 Yes [id number] 25mg Take 1 [facility] e 25 mg 4-29 tablet by ity of tablet 00:00: mouth [place] 00 every 6 Medical (six) Branch hours as needed for Nausea and Vomiting (N/V). PNV 67-iron 2022-0 Yes [id number] 1{each} Take 1 [facility] ps-folate 4-29 Each by ity of no.1-dha 00:00: mouth [place] (VITAFOL 00 daily. Medical ULTRA) 29 Branch mg iron- 1 mg-200 mg Cap proMETHazin 2022-0 Yes [id number] 25mg Take 1 [facility] e 25 mg 4-29 tablet by ity of tablet 00:00: mouth [place] 00 every 6 Medical (six) Branch hours as needed for Nausea and Vomiting (N/V). PNV 67-iron 2022-0 Yes [id number] 1{each} Take 1 [facility] ps-folate 4-29 Each by ity of no.1-dha 00:00: mouth [place] (VITAFOL 00 daily. Medical ULTRA) 29 Branch mg iron- 1 mg-200 mg Cap PNV 67-iron 2022-0 Yes [id number] 1{each} Take 1 [facility] ps-folate 4-29 Each by ity of no.1-dha 00:00: mouth [place] (VITAFOL 00 daily. Medical ULTRA) 29 Branch mg iron- 1 mg-200 mg Cap PNV 67-iron 2021-0 Yes [id number] 1{each} Take 1 [facility] ps-folate 4-29 Each by ity of no.1-dha 00:00: mouth [place] (VITAFOL 00 daily. Medical ULTRA) 29 Branch mg iron- 1 mg-200 mg Cap PNV 67-iron 2021-0 Yes [id number] 1{each} Take 1 [facility] ps-folate 4-29 Each by ity of no.1-dha 00:00: mouth [place] (VITAFOL 00 daily. Medical ULTRA) 29 Branch mg iron- 1 mg-200 mg Cap PNV 67-iron 2021-0 Yes [id number] 1{each} Take 1 [facility] ps-folate 4-29 Each by ity of no.1-dha 00:00: mouth [place] (VITAFOL 00 daily. Medical ULTRA) 29 Branch mg iron- 1 mg-200 mg Cap PNV 67-iron 2021-0 Yes [id number] 1{each} Take 1 [facility] ps-folate 4-29 Each by ity of no.1-dha 00:00: mouth [place] (VITAFOL 00 daily. Medical ULTRA) 29 Branch mg iron- 1 mg-200 mg Cap PNV 67-iron 2021-0 Yes [id number] 1{each} Take 1 [facility] ps-folate 4-29 Each by ity of no.1-dha 00:00: mouth [place] (VITAFOL 00 daily. Medical ULTRA) 29 Branch mg iron- 1 mg-200 mg Cap PNV 67-iron 2021-0 Yes [id number] 1{each} Take 1 [facility] ps-folate 4-29 Each by ity of no.1-dha 00:00: mouth [place] (VITAFOL 00 daily. Medical ULTRA) 29 Branch mg iron- 1 mg-200 mg Cap PNV 67-iron 2021-0 Yes [id number] 1{each} Take 1 [facility] ps-folate 4-29 Each by ity of no.1-dha 00:00: mouth [place] (VITAFOL 00 daily. Medical ULTRA) 29 Branch mg iron- 1 mg-200 mg Cap PNV 67-iron 2021-0 Yes [id number] 1{each} Take 1 [facility] ps-folate 4-29 Each by ity of no.1-dha 00:00: mouth [place] (VITAFOL 00 daily. Medical ULTRA) 29 Branch mg iron- 1 mg-200 mg Cap PNV 67-iron 2021-0 Yes [id number] 1{each} Take 1 [facility] ps-folate 4-29 Each by ity of no.1-dha 00:00: mouth [place] (VITAFOL 00 daily. Medical ULTRA) 29 Branch mg iron- 1 mg-200 mg Cap PNV 67-iron 2021-0 Yes [id number] 1{each} Take 1 [facility] ps-folate 4-29 Each by ity of no.1-dha 00:00: mouth [place] (VITAFOL 00 daily. Medical ULTRA) 29 Branch mg iron- 1 mg-200 mg Cap PNV 67-iron 2021-0 Yes [id number] 1{each} Take 1 [facility] ps-folate 4-29 Each by ity of no.1-dha 00:00: mouth [place] (VITAFOL 00 daily. Medical ULTRA) 29 Branch mg iron- 1 mg-200 mg Cap PNV 67-iron 2021-0 Yes [id number] 1{each} Take 1 [facility] ps-folate 4-29 Each by ity of no.1-dha 00:00: mouth [place] (VITAFOL 00 daily. Medical ULTRA) 29 Branch mg iron- 1 mg-200 mg Cap PNV 67-iron 2021-0 Yes [id number] 1{each} Take 1 [facility] ps-folate 4-29 Each by ity of no.1-dha 00:00: mouth [place] (VITAFOL 00 daily. Medical ULTRA) 29 Branch mg iron- 1 mg-200 mg Cap PNV 67-iron 2021-0 Yes [id number] 1{each} Take 1 [facility] ps-folate 4-29 Each by ity of no.1-dha 00:00: mouth [place] (VITAFOL 00 daily. Medical ULTRA) 29 Branch mg iron- 1 mg-200 mg Cap PNV 67-iron 2021-0 Yes [id number] 1{each} Take 1 [facility] ps-folate 4-29 Each by ity of no.1-dha 00:00: mouth [place] (VITAFOL 00 daily. Medical ULTRA) 29 Branch mg iron- 1 mg-200 mg Cap proMETHazin 2021-0 2021- No [id number] 25mg Take 1 [facility] e 25 mg 03-19 tablet by ity of tablet 00:00: 00:00 mouth [place] 00 :00 every 6 Medical (six) Branch hours as needed for Nausea and Vomiting (N/V). Immunizations Ordered Filled Immunization Date Status Comments [facility] e Immunization Name Name [facility] 2022-08-20 Completed [facility] 00:00:00 [facility] 2022-08-20 Completed [facility] of 00:00: [facility] 2022-08-20 Completed [facility] of 00:00: [facility] 2022-08-20 Completed [facility] of 00:00:00 [facility] 2022-08-20 Completed [facility] of 00:00:00 [facility] 2022-08-20 Completed [facility] of 00:00:00 [facility] 2022-08-20 Completed University of 00:00:00 [facility] 2022-08-20 Completed University of 00:00:00 [facility] 2022-08-20 Completed [facility] of 00:00:00 [facility] 2022-08-20 Completed [facility] of 00:00:00 [facility] 2022-08-20 Completed [facility] of 00:00:00 [facility] 2022-08-20 Completed University of 00:00:00 [facility] 2022-08-20 Completed [facility] of 00:00:00 [facility] 2022-08-20 Completed [facility] of 00:00:00 [facility] 2022-08-20 Completed [facility] of 00:00:00 [facility] 2022-08-20 Completed [facility] of 00:00:00 [facility] 2022-08-20 Completed [facility] of 00:00:00 [facility] 2022-08-20 Completed [facility] of 00:00:00 [facility] 2022-08-20 Completed [facility] of 00:00:00 [facility] 2022-08-20 Completed [facility] of 00:00:00 [facility] 2022-08-20 Completed University of 00:00:00 [facility] 2022-08-20 Completed University of 00:00:00 [facility] 2022-08-20 Completed [facility] of 00:00:00 [facility] TDAP 2022-08-20 Completed [facility] 00:00: [facility]AP 2022-08-20 Completed University of :00: [facility] TDAP 2022-08-20 Completed University of :00: [facility] TDAP 2022-08-20 Completed University of :00: [facility] TDAP 2022-08-20 Completed [facility] of :00: [place] [facility] TDAP 2022-08-20 Completed [facility] of 00:00:00 [facility] Vital Signs Vital Name Observation Time Observation Value Comments Source Systolic blood 2022-12-31 99 mm[Hg] University of pressure 21:44:00 [facility] Diastolic blood 2022-12-31 61 mm[Hg] University o f pressure 21:44:00 [facility] Heart rate 2022-12-31 80 /min University of 21:44:00 [facility] Body temperature 2022-12-31 36 [place] [facility] 21:44:00 [facility] Respiratory rate 2022-12-31 18 /min [facility] 21:44:00 [facility] [facility] Body height 2022-12-31 160 cm University of 21:44:00 [facility] Body weight 2022-12-31 93.033 kg University of 21:44:00 [facility] BMI 2022-12-31 36.33 kg/m2 University of 21:44:00 [facility] Systolic blood 2022-12-21 98 mm[Hg] University of pressure 22:00:00 [facility] Diastolic blood 2022-12-21 54 mm[Hg] University o f pressure 22:00:00 [facility] Heart rate 2022-12-21 69 /min University of 22:00:00 [facility] Body temperature 2022-12-21 36.5 Aicha University of 22:00:00 [facility] Respiratory rate 2022-12-21 18 /min University of 22:00:00 [facility] Body height 2022-12-21 160 cm University of 22:00:00 [facility] Body weight 2022-12-21 94.802 kg University of 22:00:00 [facility] BMI 2022-12-21 37.02 kg/m2 University of 22:00:00 [facility] Systolic blood 2022-12-19 115 mm[Hg] University of pressure 22:41:00 [facility] Diastolic blood 2022-12-19 60 mm[Hg] University o f pressure 22:41:00 [facility] Heart rate 2022-12-19 74 /min University of 22:41:00 [facility] Body temperature 2022-12-19 36.44 Aicha University of 22:41:00 [facility] Respiratory rate 2022-12-19 12 /min University of 22:41:00 [facility] Body height 2022-12-19 160 cm University of 22:41:00 [facility] Body weight 2022-12-19 94.802 kg University of :41:00 [facility] BMI 2022-12-19 37.02 kg/m2 University of :41:00 [facility] Oxygen saturation 2022-12-19 99 /min University of in Arterial blood 22:41:00 [place] [facility] Pulse oximetry Branch Systolic blood 2022-12-01 118 mm[Hg] University of pressure 04:21:00 [facility] Diastolic blood 2022-12-01 76 mm[Hg] University o f pressure 04:21:00 [facility] Heart rate 2022-12-01 78 /min University of 04:21:00 [facility] Body temperature 2022-12-01 36.72 Aicha University of 04:21:00 [facility] Respiratory rate 2022-12-01 18 /min University of 04:21:00 [facility] Body height 2022-12-01 160 cm University of 04:21:00 [facility] Body weight 2022-12-01 92.987 kg University of 04:21:00 [facility] BMI 2022-12-01 36.31 kg/m2 University of 04:21:00 [facility] Oxygen saturation 2022-12-01 100 /min University of in Arterial blood 04:21:00 [place] [facility] Pulse oxim[facility] Systolic blood 2022-11-16 105 mm[Hg] University of pressure 15:33:00 [facility] Diastolic blood 2022-11-16 70 mm[Hg] University o f pressure 15:33:00 [facility] Heart rate 2022-11-16 104 /min University of 15:33:00 [facility] Body temperature 2022-11-16 36.17 Aicha University of 15:33:00 [facility] Respiratory rate 2022-11-16 20 /min University of 15:33:00 [facility] Body height 2022-11-16 160 cm University of 15:33:00 [facility] Body weight 2022-11-16 99.882 kg University of 15:33:00 [facility] BMI 2022-11-16 39.01 kg/m2 University of 15:33:00 [facility] Systolic blood 2022-11-11 120 mm[Hg] University of pressure 19:02:00 [facility] Diastolic blood 2022-11-11 72 mm[Hg] University o f pressure 19:02:00 [facility] Heart rate 2022-11-11 92 /min University of 18:51:00 [facility] Body temperature 2022-11-11 36.78 Aicha University of 18:51:00 [facility] Oxygen saturation 2022-11-11 98 /min [facility] in Arterial blood 18:51:00 [facility] by Pulse oximetry Branch Systolic blood 2022-11-11 128 mm[Hg] University of pressure 00:02:00 [facility] Diastolic blood 2022-11-11 88 mm[Hg] University o f pressure 00:02:00 [facility] Heart rate 2022-11-11 75 /min University 00:02:00 [facility] Respiratory rate 2022-11-11 18 /min University of 00:02:00 [facility] Oxygen saturation 2022-11-11 98 /min [facility] in Arterial blood 00:02:00 [facility] by Pulse oximetry Branch Body temperature 2022-11-10 37.22 Aicha University of 21:50:00 [facility] Body height 2022-11-10 160 cm University of 21:50:00 [place] [facility] [place] Body weight 2022-11-10 104.327 kg University of 21:50:00 [facility] BMI 2022-11-10 40.74 kg/m2 University of 21:50:00 [facility] Heart rate 2022-11-08 119 /min University of 13:40:00 [facility] Systolic blood 2022-11-08 145 mm[Hg] pt was in pain. University of pressure 13:28:00 nurse will [place] [facility] recheck pulse Branch Diastolic blood 2022-11-08 79 mm[Hg] pt was in pain. [facility] y of pressure 13:28:00 nurse will [place] [facility] recheck pulse Branch Body temperature 2022-11-08 37 Aicha University of 13:28:00 [facility] Respiratory rate 2022-11-08 20 /min University of 13:28:00 [facility] Oxygen saturation 2022-11-08 97 /min University of in Arterial blood 13:28:00 [place] [facility] by Pulse oxim[facility] Body weight 2022-11-06 110 kg University of 20:30:00 [facility] BMI 2022-11-06 42.97 kg/m2 University of 20:30:00 [facility] Systolic blood 2022-11-07 121 mm[Hg] University of pressure 09:00:00 [facility] Diastolic blood 2022-11-07 56 mm[Hg] University o f pressure 09:00:00 [facility] Heart rate 2022-11-07 107 /min University of 09:00:00 [facility] Respiratory rate 2022-11-07 18 /min University of 09:00:00 [facility] Oxygen saturation 2022-11-07 98 /min University of in Arterial blood 09:00:00 [place] [facility] Pulse oxim[facility] Body temperature 2022-11-07 38.44 Aicha University of 08:30:00 [facility] Body weight 2022-11-06 110 kg University of 20:30:00 [facility] BMI 2022-11-06 42.97 kg/m2 University of 20:30:00 [facility] Systolic blood 2022-10-30 119 mm[Hg] University of pressure 18:30:00 [facility] Diastolic blood 2022-10-30 84 mm[Hg] University o f pressure 18:30:00 [facility] Heart rate 2022-10-30 88 /min University of 18:30:00 [facility] Body temperature 2022-10-30 36.78 Aicha University of 18:30:00 [facility] Respiratory rate 2022-10-30 18 /min University of 18:30:00 [facility] Body height 2022-10-30 160 cm University of 18:30:00 [facility] Body weight 2022-10-30 110 kg University of 18:30:00 [facility] BMI 2022-10-30 42.97 kg/m2 University of 18:30:00 [facility] Oxygen saturation 2022-10-30 99 /min University of in Arterial blood 18:30:00 [place] [facility] by Pulse oximetry [facility] Systolic blood 2022-10-23 117 mm[Hg] University of pressure 16:06:00 [facility] Diastolic blood 2022-10-23 70 mm[Hg] University o f pressure 16:06:00 [facility] Heart rate 2022-10-23 99 /min University of 16:06:00 [facility] Body temperature 2022-10-23 36.39 Aicha University of 16:06:00 [facility] Respiratory rate 2022-10-23 20 /min University of 16:06:00 [facility] Body height 2022-10-23 160 cm University of 16:06:00 [facility] Body weight 2022-10-23 109.272 kg University of 16:06:00 [facility] BMI 2022-10-23 42.67 kg/m2 University of 16:06:00 [facility] Systolic blood 2022-10-11 128 mm[Hg] University of pressure 17:21:00 [facility] Diastolic blood 2022-10-11 69 mm[Hg] University o f pressure 17:21:00 [facility] Heart rate 2022-10-11 107 /min University of 17:21:00 [facility] Body temperature 2022-10-11 36.61 Aicha University of 17:21:00 [facility] Respiratory rate 2022-10-11 16 /min University of 17:21:00 [facility] Body height 2022-10-11 160 cm University of 17:21:00 [facility] Body weight 2022-10-11 107.616 kg University of 17:21:00 [facility] BMI 2022-10-11 42.03 kg/m2 University of 17:21:00 [facility] Systolic blood 2022-10-06 109 mm[Hg] University of pressure 17:03:00 [facility] Diastolic blood 2022-10-06 68 mm[Hg] University o f pressure 17:03:00 [facility] Heart rate 2022-10-06 100 /min University of 17:03:00 [facility] Body temperature 2022-10-06 36.06 Aicha University of 17:03:00 [facility] Respiratory rate 2022-10-06 18 /min University of 17:03:00 [facility] Body height 2022-10-06 160 cm University of 17:03:00 [facility] Body weight 2022-10-06 106.737 kg University of 17:03:00 [facility] BMI 2022-10-06 41.68 kg/m2 University of 17:03:00 [facility] Systolic blood 2022-10-01 113 mm[Hg] University of pressure 21:09:00 [facility] Diastolic blood 2022-10-01 68 mm[Hg] University o f pressure 21:09:00 [facility] Heart rate 2022-10-01 98 /min University of 21:09:00 [facility] Body temperature 2022-10-01 36.56 Aicha University of 21:09:00 [facility] Respiratory rate 2022-10-01 16 /min University of 21:09:00 [facility] Body height 2022-10-01 160 cm University of :09:00 [facility] Body weight 2022-10-01 105.461 kg University of ::00 [facility] BMI 2022-10-01 41.19 kg/m2 University of ::00 [facility] Systolic blood 2022-09-16 117 mm[Hg] University of pressure 21:10:00 [facility] Diastolic blood 2022-09-16 66 mm[Hg] University o f pressure 21:10:00 [facility] Heart rate 2022-09-16 98 /min University of ::00 [facility] Body temperature 2022-09-16 36.28 Aicha University of ::00 [facility] Respiratory rate 2022-09-16 18 /min University of :10:00 [facility] Body height 2022-09-16 160 cm University of ::00 [facility] Body weight 2022-09-16 104.441 kg University of ::00 [facility] BMI 2022-09-16 40.79 kg/m2 University of 21:10:00 [facility] Systolic blood 2022-09-02 109 mm[Hg] University of pressure 20:30:00 [facility] Diastolic blood 2022-09-02 70 mm[Hg] University o f pressure 20:30:00 [facility] Heart rate 2022-09-02 106 /min University of 20:30:00 [facility] Body temperature 2022-09-02 36.39 Aicha University of 20:30:00 [facility] Respiratory rate 2022-09-02 17 /min University of 20:30:00 [facility] Body height 2022-09-02 160 cm University 20:30:00 [facility] Body weight 2022-09-02 103.42 kg University 20:30:00 [facility] BMI 2022-09-02 40.39 kg/m2 University 20:30:00 [facility] Systolic blood 2022-08-19 116 mm[Hg] University of pressure 21:27:00 [facility] Diastolic blood 2022-08-19 61 mm[Hg] [place] o f pressure 21:27:00 [facility] Heart rate 2022-08-19 100 /min University 21:27:00 [facility] Body temperature 2022-08-19 36.44 Aicha [facility] 21:27:00 [facility] Respiratory rate 2022-08-19 18 /min [facility] 21:27:00 [facility] Body weight 2022-08-19 103.511 kg [facility] 21:27:00 [facility] BMI 2022-08-19 40.42 kg/m2 [facility] 21:27:00 [facility] Procedures Procedure Date / Time Performing Clinician Source Performed CBC WITH DIFF 2022-12-21 22:31:00 Yoly Mei [facility] CONSENT/REFUSAL FOR 2022-12-19 22:38:00 Doctor Unassigned, No [facility] [place] [facility] CONSENT/REFUSAL FOR 2022-12-01 04:14:11 Doctor Unassigned, No Un [facility] [place] [facility] Name [facility] URINALYSIS 2022-11-10 22:22:00 Junior Sanchez o f [facility] RAPID INFLUENZA A/B 2022-11-10 22:22:00 Junior Sanchez [facility] COVID-19 (ID NOW RAPID 2022-11-10 22:22:00 Junior Sanchez [facility] TESTING) Medical Branch CONSENT/REFUSAL FOR 2022-11-10 21:39:22 Doctor Unassigned, No Un [facility] [place] [facility] Name [facility] CBC WITH DIFF 2022-11-08 11:27:00 Clarice lenore [facility] CBC WITH DIFF 2022-11-08 11:27:00 Jenusaitis, Luke [facility] VENOUS CORD GAS 2022-11-07 07:15:00 Elvia Stubbsshua [facility] VENOUS CORD GAS 2022-11-07 07:15:00 Veto Stubbs [facility] SECTION 2022-11-07 06:29:00 Tony [facility] SECTION 2022-11-07 06:29:00 Tony [facility] CENTRAL NEURAXIAL BLOCK 2022-11-06 05:38:50 Jonathan Bedoya [facility] CBC WITH DIFF 2022-11-05 15:09:00 Elvia Stubbsshua [facility] HEPATITIS B SURFACE 2022-11-05 15:09:00 Veto Stubbs [facility] HIV 1/2 AG-AB WITH 2022-11-05 15:09:00 Veto Stubbs [facility] REFLEX [facility] GALV ONLY - SYPHILIS 2022-11-05 15:09:00 Veto Stubbs [facility] IGG/IGM [facility] CBC WITH DIFF 2022-11-05 15:09:00 Veto Stubbs [facility] HEPATITIS B SURFACE 2022-11-05 15:09:00 Veto Stubbs [facility] HIV 1/2 AG-AB WITH 2022-11-05 15:09:00 Veto Stubbs [facility] REFLEX [facility] GALV ONLY - SYPHILIS 2022-11-05 15:09:00 Veto Stubbs [facility]/IGM [facility] HB ABO GROUPING 2022-11-05 15:07:00 Veto Stubbs [facility] RHO (D) IMMUNE GLOBULIN 2022-11-05 15:07:00 Antonio Oneil [facility] HB ABO GROUPING 2022-11-05 15:07:00 Eliva Stubbsshua [facility] RHO (D) IMMUNE GLOBULIN 2022-11-05 15:07:00 Antonio Oneil [facility] NOTICE OF PRIVACY 2022-10-30 18:16:50 Doctor Unassigned, No [facility] PRACTICES [facility] CONSENT/REFUSAL FOR 2022-10-30 18:11:51 Doctor Unassigned, No Un [facility] DIAGNOSIS AND TREATMENT [facility] POCT URINALYSIS 2022-10-23 00:00:00 Nataliia Dodson [facility] DME/SUPPLY JUSTIFICATION 2022-10-20 06:01:00 Doctor Unassigned, No [facility] POCT URINALYSIS 2022-10-11 17:22:00 Nataliia Dodson [facility] POCT URINALYSIS 2022-10-06 17:04:00 Nataliia Dodson [facility] POCT URINALYSIS 2022-10-01 21:10:00 Nataliia Dodson [facility] POCT URINALYSIS 2022-09-16 21:13:00 Nataliia Dodson [facility] POCT URINALYSIS 2022-09-02 00:00:00 Nataliia Dodson [facility] HIV 1/2 AG-AB WITH 2022-08-20 16:04:00 Nataliia Dodson [facility] GALV ONLY - SYPHILIS 2022-08-20 16:04:00 [facility] TDAP VACCINE, >11 YRS, 2022-08-19 21:20:21 Nataliia Dodson [facility] Encounters Start End Encounter Admission Attending Care Care Encounter Source Date/Time Date/Time Type Type Clinicians Facility Department ID 2022-12-31 2022-12-31 Outpatient R DAVION DODSON [facility] [id number] Univers 15:30:00 16:18:52 NATALIIA altamirano f [facility] 2022-12-31 2022-12-31 Office DAVION Dodson [id number] Univers 15:30:00 16:18:52 Visit Nataliia King 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PRENTICE [id number] ity [facility] [id number] Julio as MATERNAL [id number] [facility] ical & CHILD [address] [place] [address] 2022-12-31 2022-12-31 Patient Doctor SHABANA [id number] Univers 00:00:00 00:00:00 Secure Msg Unassigned, JERICHO [id number] ity of [facility] [id number] Julio as [id number] [facility] 019 [place] 2022-12-21 2022-12-21 Outpatient Aga MEI [facility] [id number] Univers 15:45:00 16:38:30 YOLY hendrix [facility] 2022-12-21 2022-12-21 Office Provider, [facility] 1 .2.840.114 [id number] Univers 15:45:00 16:38:30 Visit Yoly Mei 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PRENT[employer] 350.1.13.1 0 ity of [facility] [id number] Julio as MATERNAL [id number] [facility] ical & CHILD [address] [place] [address] 2022-12-19 2022-12-19 Emergency [facility] [id number] Univers 16:43:00 17:08:00 Peter MOORE [id number] i ty [facility] [id number] [id number] [facility] 084 [place] 2022-12-19 2022-12-19 Emergency X [facility] [id number] Univers 16:43:00 17:08:00 PETER hendrix [facility] 2022-12-10 2022-12-10 Outpatient Aga MEI [facility] [id number] Univers 15:45:00 15:45:00 YOLY hendrix [facility] 2022-12-07 2022-12-07 Outpatient Aga MEI [facility] [id number] Univers 16:00:00 16:00:00 YOLY hendrix [facility] 2022-11-30 2022-11-30 Emergency X YARIMA, [facility] ERT [id number] Univers 22:24:00 22:41:00 FIDENCIO [facility] 2022-11-30 2022-11-30 [facility] [id number] Univers 22:24:00 22:41:00 Fidencio Amador LAFAYETTE [id number] ity [facility] [id number] [facility] [id number] [place] [id number] [place] 2022-11-30 2022-11-30 Outpatient R SIGIFREDO [facility] [id number] Univers 14:00:00 14:00:00 YOLY itsally [facility] 2022-11-25 2022-11-25 [facility] [id number] Univers 00:00:00 00:00:00 Nataliia King 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PRENTICE [id number] ity [facility] [id number] Julio MATERNAL [id number] Med ical & CHILD [address] [place] [address] 2022-11-16 2022-11-16 Nurse Visit, [facility] Nurse [facility] 1.2 .840.114 [id number] Univers 09:30:00 09:30:00 Visit Katrin Khalil 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 APPRENTICE 350 .[id number] ity Nataliia Dodson [facility] 4.2.7.2.68 6 [place] MATERNAL [id number] Med ical & CHILD [address] [place] [address] 2022-11-16 2022-11-16 Outpatient R IVORY [facility] [id number] Univers 09:30:00 09:07:58 NATALIIA hendrix o f [facility] 2022-11-11 2022-11-11 Outpatient P VISH [facility] JERRELL [id number] Univers 12:39:00 14:15:00 BIANKA hendrix [facility] 2022-11-11 2022-11-11 [facility] SHABANA Wahl 1.2.840.114 [id number] Univers 12:39:00 14:15:00 Encounter Bianka ECHAVARRIA [id number] ity of [address]7.2.686 [place] [phone] [facility] 140 Branch 2022-11-11 2022-11-11 Telephone SHABANA Jimenez 1.2.840.114 [id number] Univers 00:00:00 00:00:00 Steve ECHAVARRIA 350.1.13.10 i ty of [place] [address]..2.686 Julio as [id number] [facility] 013 Branch 2022-11-10 2022-11-10 Emergency X SINGER [facility] ERT [id number] Univers 15:56:00 18:18:00 JUNIOR hendrix [facility] 2022-11-10 2022-11-10 Emergency Delroy Allen F [facility] 1.2. [id number] [id number] Univers 15:56:00 18:18:00 Junior Sanchez [id number] ity [place] [id number] [place] [facility] [id number] [facility] 084 Branch 2022-11-05 2022-11-08 Inpatient P HOUSTON [facility] JERRELL [id number] Univers 07:55:00 17:34:00 ROCKY hendrix [facility] 2022-11-05 2022-11-08 [facility] SHABANA Conrad [id number] Univers 07:55:00 17:34:00 Encounter Rocky ECHAVARRIA [id number] ity of [place] [id number] Julio as [id number] [facility] 134 Branch 2022-11-07 2022-11-07 Surgery SHABANA Jimenez 1.2.840.114 [id number] Univers 01:15:00 03:00:00 Steve ECHAVARRIA 350.1.13.10 i ty of [place] [id number] Julio as [id number] [facility] 013 Branch 2022-11-05 2022-11-05 Anesthesia Jennifer Fajardo 1.2. 840.114 [id number] Univers 22:28:00 22:28:00 Event Amber Conde 350.1.13.10 ity of [facility] 4.2.7.2.686 Julio as [id number] [facility] 013 [place] 2022-10-30 2022-10-30 Outpatient X CATRACHO, [facility] JERRELL [id number] Univers 12:23:00 13:45:00 AUDREY [facility] 2022-10-30 2022-10-30 Emergency Adum, [facility] [id number] Univers 12:23:00 13:45:00 Audrey MOORE 350.1.13.10 ity of [place] 4.2.7.2.686 [place] [facility] [id number] [facility] 083 [place] 2022-10-28 2022-10-28 Outpatient R SIGIFREDO [facility] [id number] Univers 15:45:00 15:45:00 YOLY [facility] 2022-10-23 2022-10-23 Outpatient R DAISHA [facility] [id number] Univers 10:15:00 10:30:[address] [facility] 2022-10-23 2022-10-23 Routine Provider, 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 350.1.13.10 ity of Visit [facility] 4.2.7.2.686 Julio as MATERNAL [phone] Med ical & CHILD [address] [place] [address] 2022-10-20 2022-10-20 Orders Doctor SHABANA 1.2.840.114 [id number] Univers 00:00:00 00:00:00 Only Unassigned, JERICHO 350.1.13.10 ity of [place] [facility] 4.2.7.2.686 Julio as [phone] [facility] 009 [address] 2022-10-12 2022-10-12 Outpatient R [facility] [id number] Univers 13:15:00 13:15:00 ity of [facility] 2022-10-12 2022-10-12 Telephone Ivory [facility] 1.2.840.114 [id number] Univers 00:00:00 00:00:00 Nataliia King JEWELRY 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 MAKER APPRENTICE 350.1.13.10 ity of REGIONAL 4.2.7.2.686 Julio as MATERNAL [phone] [facility] & [address] 2022-10-11 2022-10-11 Routine [facility], [facility] 1.2.464.368 [id number] Univers 11:00:00 11:15:00 Nataliia King 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 APPRENTICE 350.1.13.10 ity of Visit REGIONAL 4.2.7.2.686 Julio as MATERNAL [id number] [address] 2022-10-11 2022-10-11 Outpatient R IVORY [facility] [id number] Univers 11:00:00 11:00:00 NATALIIA hendrix o [facility] 2022-10-07 2022-10-07 Outpatient R SIGIFREDO [facility] [id number] Univers 14:00:00 [facility]:00[facility] 2022-10-06 Outpatient R SIGIFREDO [facility] [id number] Univers 10:45:00 11:48:25 [facility] 2022-10-06 2022-10-06 Routine Provider, [facility] 1 .2.840.114 [id number] Univers 10:45:00 11:48:25 Yoly Mei JEWELRY 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 MAKER APPRENTICE 350.1.13. 10 ity of Visit REGIONAL 4.2.7.2.686 Julio as MATERNAL [phone] [facility] & [address] 2022-10-04 2022-10-04 Outpatient R IVORY [facility] [id number] Univers 15:30:00 15:30:00 NATALIIA hendrix o [facility] 2022-10-01 2022-10-01 Outpatient R IVORY [facility] [id number] Univers 14:45:00 15:40:54 NATALIIA hendrix o [facility] 2022-10-01 2022-10-01 Routine Akinsipe, [facility] 1.2.517.873 [id number] Univers 14:45:00 15:40:54 Nataliia C JEWELRY 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 MAKER APPRENTICE 350.1.13.10 ity of Visit REGIONAL 4.2.7.2.686 Julio as MATERNAL [phone] [facility] & CHILD [address] [place] [address] 2022-09-16 2022-09-16 Routine Akinsipe, [facility] 1.2.675.847 [id number] Univers 16:00:00 16:15:00 Nataliia C JEWELRY 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 MAKER APPRENTICE 350.1.13.10 ity of Visit REGIONAL 4.2.7.2.686 Julio as MATERNAL [id number] [address] 2022-09-16 2022-09-16 Outpatient R AKINSIPE, [facility] [id number] Univers 16:00:00 16:00:00 NATALIIA ity o [facility] 2022-09-02 2022-09-02 Outpatient R AKINSIPE, [facility] [id number] Univers 15:30:00 15:44:03 NATALIIA ity o [facility] 2022-09-02 2022-09-02 Routine [facility] 1.2.660.967 [id number] Univers 15:30:00 15:44:03 Nataliia C JEWELRY 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 MAKER APPRENTICE 350.1.13.10 ity of Visit REGIONAL 4.2.7.2.686 Julio as MATERNAL [id number] [address] 2022-08-20 2022-08-20 Outpatient R AKINSIPE, [facility] [id number] Univers 10:30:00 11:08:03 NATALIIA ity o [facility] 2022-08-20 2022-08-20 [employer] Lab, Ang-Rmchp [facility] 1.2.840. 114 [id number] Univers 10:30:00 11:08:03 Visit Akinsipe, Nataliia C JEWELRY 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 MAKER APPRENTICE 350.1.13. 10 ity of REGIONAL 4.2.7.2.686 Julio as MATERNAL [id number] [facility] & CHILD [address] [place] [address] 2022-08-19 2022-08-19 Outpatient R AKINSIPE, [facility] [id number] Univers 16:00:00 16:44:59 NATALIIA ity o f [facility] 2022-08-19 2022-08-19 [facility] 1.2.915.117 [id number] Univers 16:00:00 16:44:59 Nataliia C JEWELRY 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 MAKER APPRENTICE 350.1.13.10 ity of Visit REG[facility]AL 4.2.7.2.686 Julio as MATERNAL [phone] Med ical & CHILD [address] [place] [address] 2022-08-06 2022-08-06 Outpatient P [facility] [id number] Univers 15:15:00 15:15:00 ity of [facility] 2022-08-06 2022-08-06 Telephone [facility] 1.2.840.114 [id number] Univers 00:00:00 00:00:00 Nataliia C JEWELRY 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 MAKER APPRENTICE 350.1.13.10 ity of REGIONAL 4.2.7.2.686 Julio as MATERNAL [id number] [facility] ical & CHILD [address] [place] [address] 2022-08-06 2022-08-06 Telephone [facility] 1.2.840.114 [id number] Univers 00:00:00 00:00:00 Nataliia C JEWELRY 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 MAKER APPRENTICE 350.1.13.10 ity of REGIONAL 4.2.7.2.686 Julio as MATERNAL [id number] [facility] ical & CHILD [address] [place] [address] 2022-08-05 2022-08-05 Routine Akinpe, [facility] 1.2.777.702 [id number] Univers 13:00:00 13:21:54 Nataliia C JEWELRY 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 MAKER APPRENTICE 350.1.13.10 ity of Visit REGIONAL 4.2.7.2.686 Julio as MATERNAL [phone] [facility] ical & CHILD [address] [place] [address] 2022-08-05 2022-08-05 Outpatient R AKINSIPE, [facility] [id number] Univers 13:00:00 13:21:54 NATALIIA ity o f [facility] 2022-08-05 2022-08-05 Outpatient R AKINSIPE, [facility] [id number] Univers 13:00:00 13:21:54 NATALIIA ity o f [facility] 2022-08-05 2022-08-05 Outpatient R AKINSIPE, [facility] [id number] Univers 13:00:00 13:00:00 NATALIIA ity o f [facility] 2022-07-20 2022-07-20 Abstract [facility] 1.2.840.114 [id number] Univers 00:00:00 00:00:00 Nataliia C JEWELRY 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 13.10 ity of [facility] 4.2.7.2.686 Julio as MATERNAL [phone] [facility] ical & CHILD [address] [facility] 2022-07-19 2022-07-19 Outpatient P [facility] [id number] Univers 13:00:00 13:00:00 ity of [facility] 2022-07-19 2022-07-19 Outpatient P KATHIE [facility] [id number] Univers 13:00:00 13:00:00 JUAN CARLOS it y of S BHAGAT [facility] 2022-07-19 2022-07-19 Telephone [facility] 1.2.840.114 [id number] Univers 00:00:00 00:00:00 Nataliia C JEWELRY 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 MAKER APPRENTICE 350.1.13.10 ity of [facility] 4.2.7.2.686 Julio as MATERNAL [id number] [facility] & CHILD [address] [place] [address] 2022-07-05 2022-07-05 Routine [facility] 1.2.204.206 [id number] Univers 15:30:00 15:45:00 Nataliia C 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 APPRENTICE 350.1.13.10 ity of Visit REGIONAL 4.2.7.2.686 Julio as MATERNAL [id number] [facility] & CHILD [address] [place] [address] 2022-07-05 2022-07-05 [facility] [id number] Univers 15:30:00 15:30:00 NATALIIA ity o f [facility] 2022-07-05 2022-07-05 [facility] [id number] Univers 15:30:00 15:30:00 NATALIIA ity o f [facility] 2022-06-25 2022-06-25 Orders Doctor SHABANA 1.2.840.114 [id number] Univers 00:00:00 00:00:00 Only Unassigned, JERICHO 350.1.13.10 ity of [place] [facility] 4.2.7.2.686 Julio as [id number] [address] 2022-06-21 2022-06-21 Telephone [facility] 1.2.840.114 [id number] Univers 00:00:00 00:00:00 Nataliia C JEWELRY 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 MAKER APPRENTICE 350.1.13.10 ity of REGIONAL 4.2.7.2.686 Julio as MATERNAL [id number] [facility] & CHILD [address] [place] [address] 2022-06-18 2022-06-18 [employer]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, [facility] 1.2 .840.114 [id number] Univers 14:45:00 16:00:00 Visit Leatha Michele JEWELRY 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 MAKER APPRENTICE 350.1.13.10 ity of [facility] 4.2.7.2.686 Julio as MATERNAL [id number] [facility] ical & CHILD [address] [facility] 2022-06-18 2022-06-18 Outpatient P [facility] [id number] Univers 14:45:00 14:45:00 ity [facility] 2022-06-18 2022-06-18 Outpatient P RYNE [facility] [id number] Univers 14:45:00 14:45:00 LEATHA [facility] 2022-06-18 2022-06-18 Abstract [place], [facility] 1.2.840.114 [id number] Univers 00:00:00 00:00:00 Nataliia C JEWELRY 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 APPRENTICE 350.1.13.10 ity of REGIONAL 4.2.7.2.686 Julio as MATERNAL [id number] [facility] ical & CHILD [address] [place] [address] 2022-06-11 2022-06-11 [facility]phone [facility] 1.2.307.064 [id number] Univers 00:00:00 00:00:00 Michellenda R JEWELRY 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 MAKER APPRENTICE 350.1.13.10 ity of REGIONAL 4.2.7.2.686 Julio as MATERNAL [id number] [facility] & CHILD [address] [place] [address] 2022-06-07 2022-06-07 Routine Akinpe, [facility] 1.2.885.741 [id number] Univers 12:45:00 13:00:00 Nataliia C JEWELRY 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 MAKER APPRENTICE 350.1.13.10 ity of Visit REGIONAL 4.2.7.2.686 Julio as MATERNAL [id number] [facility] & CHILD [address] [place] [address] 2022-06-07 2022-06-07 Outpatient R AKINSIPE, [facility] [id number] Univers 12:45:00 12:45:00 NATALIIA ity o [facility] 2022-06-03 2022-06-03 Outpatient R AKINSIPE, [facility] [id number] Univers 16:00:00 16:00:00 NATALIIA ity o [facility] 2022-05-14 2022-05-14 Outpatient R AKINSIPE, [facility] [id number] Univers 16:00:00 16:35:28 NATALIIA ity o f [facility] 2022-05-14 2022-05-14 [facility] 1.2.499.196 [id number] Univers 16:00:00 16:35:28 Nataliia C JEWELRY 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 MAKER APPRENTICE 350.1.13.10 ity of Visit REGIONAL 4.2.7.2.686 Julio as MATERNAL [id number] [facility] & CHILD [address] [place] [address] 2022-05-14 2022-05-14 Orders Doctor SHABANA 1.2.840.114 [id number] Univers 00:00:00 00:00:00 Only Unassigned, JERICHO 350.1.13.10 ity of [place] [facility] 4.2.7.2.686 Julio as [id number] [facility] 009 [address] 2022-04-30 2022-04-30 SHABANA Sandy 1.2.840.114 [id number] Univers 00:00:00 00:00:00 Triage Cecile JERICHO 350.1.13.10 it y of HOSPITAL 4.2.7.2.686 Julio as [id number] [facility] 019 [address] 2022-04-30 2022-04-30 SHABANA Zuleta 1.2.840.114 [id number] Univers 00:00:00 00:00:00 Triage Aneatrice JERICHO 350.1.13.10 ity of HOSPITAL 4.2.7.2.686 Julio as [id number] [facility] 019 [address] 2022-04-29 2022-04-29 Telephone [facility] 1.2.840.114 [id number] Univers 00:00:00 00:00:00 Nataliia C JEWELRY 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 MAKER APPRENTICE 350.1.13.10 ity of REGIONAL 4.2.7.2.686 Julio as MATERNAL [phone] Med ical & CHILD [address] [place] [address] 2022-04-28 2022-04-28 SHABANA Sandy 1.2.840.114 [id number] Univers 00:00:00 00:00:00 Triage Cecile JERICHO 350.1.13.10 it y of HOSPITAL 4.2.7.2.686 Julio as [id number] [address] 2022-04-16 2022-04-16 Routine Akinpe, [facility] 1.2.204.583 [id number] Univers 15:30:00 15:45:00 Nataliia C JEWELRY 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 MAKER APPRENTICE 350.1.13.10 ity of Visit REGIONAL 4.2.7.2.686 Julio as MATERNAL [id number] [facility] ical & CHILD [address] [place] [address] 2022-04-16 2022-04-16 Outpatient R [facility] [id number] Univers 15:30:00 15:30:00 NATALIIA basurto [facility] 2022-04-14 2022-04-14 Abstract Ivory [facility] 1.2.840.114 [id number] Univers 00:00:00 00:00:00 Nataliia King JEWELRY 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 MAKER APPRENTICE 350.1.13.10 ity of [facility] 4.2.7.2.686 Julio as MATERNAL [id number] Med ical & CHILD 107 [facility] 2022-04-09 2022-04-09 [employer]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 .840.114 [id number] Univers 11:30:00 12:00:00 Visit Janette Thomsno JEWELRY 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 MAKER APPRENTICE 350.1.13.10 ity of [facility] 4.2.7.2.686 Julio as MATERNAL [id number] Med ical & CHILD 369 [facility] 2022-04-09 2022-04-09 Outpatient P [facility] [id number] Univers 11:30:00 11:30:00 ity [facility] 2022-04-09 2022-04-09 Outpatient P JANETTE THOMSON [facility] [id number] Univers 11:30:00 11:30:00 JANETTE THOMSON [facility] 2022-03-24 2022-03-24 Orders Doctor SHABANA 1.2.840.114 [id number] Univers 00:00:00 00:00:00 Only Unassigned, JERICHO 350.1.13.10 ity of [place] [facility] 4.2.7.2.686 Julio as [id number] [address] 2022-03-19 2022-03-19 Outpatient R IVORY [facility] [id number] Univers 15:00:00 15:52:14 NATALIIA basurto [facility] 2022-03-19 2022-03-19 Initial Ivory [facility] 1..908.092 [id number] Univers 15:00:00 15:52:14 Nataliia King JEWELRY 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 MAKER APPRENTICE 350.1.13.10 ity of Visit [facility] 4.2.7.2.686 Julio as MATERNAL [id number] Med ical & CHILD [address] [place] [address] 2021-06-01 2021-06-01 Outpatient R ADTAMANNA, [facility] [id number] Univers 00:00:00 00:00:00 General acute hospital 2021-04-22 2021-04-22 Office Ad, [facility] 1.2.840.114 [id number] Univers 13:59:17 15:04:16 Visit Audrey Lucia Jewett 350.1.13.10 [facility] 4.2.7.2.686 Eunice amador Professio [id number] Sd dical [address] 2021-04-22 2021-04-22 [facility] [id number] Univers 14:00:00 14:00:00 General acute hospital Results Test Description Test Time Test Comments Results Result Comments Source RHO (D) IMMUNE GLOBULIN 2022-11-07 14:35:32 Test Item Value Reference Range Interpretation Comme nts RHIG CANDIDATE? (test code = No- see comment Patient is not a candidate for RhIg- 5055) Patient is Rh P ositive.Performed at [facility] Laboratory Services - [facility] Blood [address] [address]Bgjt Free: [phone] A No. [id number] [facility] IMMUNE [id number] 14:35:32 Test Item Value Reference Range Interpretation Comments RHIG CANDIDATE? No- see comment Patient i s not a (test code = candidate for R hIg- 5055) Patient is Rh Positive.Perfor med at [facility] Laboratory Services - [facility] Blood [address] [place] [address]Qkln Free: [phone] A No. [id number] [facility]TERIAL CORD [id number] 07:34:36 Test Item Value Reference Range Interpretation Comments BASE EXCESS, CORD (test mEq/L code = 6910650314) AC PH, CORD (BEAKER) 7.18-7.38 (test code = 8144892832) PC02, CORD (test code = See_Comment [Au tomated message] 8889735295) The system [employer] generated this result transmitted ref erence range: 32 - 66 mmHg. The reference r jaleesa was not used to interpret this result as normal/abnor mal. PO2, CORD (test code = See_Comment L [Aut omated message] 2068864461) The system [employer] generated this result transmitted ref erence range: 10 - 30 mmHg. The reference r jaleesa was not used to interpret this result as normal/abnor mal. BICARBONATE, CORD (test See_Comment [Au tomated message] code = 4600345913) The syste m which generated this result transmitted ref erence range: 17 - 27 mEq/L. The reference r jaleesa was not used to interpret this result as normal/abnor mal. Lab Interpretation (test Abnormal code = 77480-3) [facility] CORD [id number] 07:34:36 Test Item Value Reference Range Interpretation Comments BASE EXCESS, CORD (test mEq/L code = 7412738601) AC PH, CORD (BEAKER) 7.18-7.38 (test code = 8818392046) PC02, CORD (test code = See_Comment [Au tomated message] 7220644934) The system [employer] generated this result transmitted ref erence range: 32 - 66 mmHg. The reference r jaleesa was not used to interpret this result as normal/abnor mal. PO2, CORD (test code = See_Comment L [Aut omated message] 7429522508) The system [employer] generated this result transmitted ref erence range: 10 - 30 mmHg. The reference r jaleesa was not used to interpret this result as normal/abnor mal. BICARBONATE, CORD (test See_Comment [Au tomated message] code = 2649250418) The syste m which generated this result transmitted ref erence range: 17 - 27 mEq/L. The reference r jaleesa was not used to interpret this result as normal/abnor mal. Lab Interpretation (test Abnormal code = 24794-3) [facility] CORD [id number] 07:27:55 Test Item Value Reference Range Interpretation Comments VENOUS BASE EXCESS, mEq/L CORD (test code = 0420669676) VENOUS PH, CORD (test 7.25-7.45 code = 2971818407) VENOUS PC02, CORD See_Comment [Automate d message] The (test code = system which ge nerated 4125818622) this result tra nsmitted reference range : 27 - 49 mmHg. The refer ence range was not used to interpret this result as normal/abnormal . VENOUS PO2, CORD (test See_Comment [Aut omated message] The code = 9316250252) system [facility] generated this result tra nsmitted reference range : 17 - 41 mmHg. The refer ence range was not used to interpret this result as normal/abnormal . VENOUS BICARBONATE, See_Comment [Automa steven message] The CORD (test code = system [facility] generated 4775940571) this result tra nsmitted reference range : 12 - 29 mEq/L. The refe rence range was not used to interpret this result as normal/abnormal . [facility] CORD [id number] 07:27:55 Test Item Value Reference Range Interpretation Comments VENOUS BASE EXCESS, mEq/L CORD (test code = 2389440296) VENOUS PH, CORD (test 7.25-7.45 code = 7715526548) VENOUS PC02, CORD See_Comment [Automate d message] The (test code = system which ge nerated 8792094248) this result tra nsmitted reference range : 27 - 49 mmHg. The refer ence range was not used to interpret this result as normal/abnormal . VENOUS PO2, CORD (test See_Comment [Aut omated message] The code = 1796910045) system [facility] generated this result tra nsmitted reference range : 17 - 41 mmHg. The refer ence range was not used to interpret this result as normal/abnormal . VENOUS BICARBONATE, See_Comment [Automa steven message] The CORD (test code = system [facility] generated 1694142444) this result tra nsmitted reference range : 12 - 29 mEq/L. The refe rence range was not used to interpret this result as normal/abnormal . [facility] - SYPHILIS [id number] 16:01:05 Test Item Value Reference Range Interpretation Comments Syphilis IgG/IgM (test Non-reactive Non-reactive code = 44101-1) KELSI (test code = KELSI) Non-reactive - No serologic evidence of T. pallidum infection. Cannot exclude incubating or early syphilis. Submit a second specimen in 2-4 weeks if syphilis is clinically suspected. Equivocal - Further testing to follow. Reactive - Further testing to follow. Lab Interpretation (test Normal code = 03933-2) [facility] ONLY - SYPHILIS [id number] 16:01:05 Test Item Value Reference Range Interpretation Comments Syphilis IgG/IgM (test Non-reactive Non-reactive code = 96037-6) KELSI (test code = KELSI) Non-reactive - No serologic evidence of T. pallidum infection. Cannot exclude incubating or early syphilis. Submit a second specimen in 2-4 weeks if syphilis is clinically suspected. Equivocal - Further testing to follow. Reactive - Further testing to follow. Lab Interpretation (test Normal code = 27555-5) General acute hospital 1/2 AG-AB WITH [id number] 19:15:57 Test Item Value Reference Range Interpretation Comments HIV Negative Negative Semi-quantitative (test code = 89502-4) KELSI (test code = Non-reactive for HIV-1 KELSI) antigen and HIV-1/HIV-2 antibodies. ?No laboratory evidence of HIV infection. ?Repeat in 2-4 weeks if acute HIV infection is suspected. General acute hospital 1/2 AG-AB WITH [id number] 19:15:57 Test Item Value Reference Range Interpretation Comments HIV Negative Negative Semi-quantitative (test code = 58107-3) KELSI (test code = Non-reactive for HIV-1 KELSI) antigen and HIV-1/HIV-2 antibodies. ?No laboratory evidence of HIV infection. ?Repeat in 2-4 weeks if acute HIV infection is suspected. [facility] HospitalHepatitis B Surface [id number] 16:51:38 Test Item Value Reference Range Interpretation Comments HBsAg Semi-Quantitative (test code = Negative Negative 5195-3) [facility] HospitalHepatitis B Surface [id number] 16:51:38 Test Item Value Reference Range Interpretation Comments HBsAg Semi-Quantitative (test code = Negative Negative 5195-3) [facility] HospitalType and Screen - ONCE [id number] 16:13:38 Test Item Value Reference Range Interpretation Comments ABO & RH (test code A POSITIVE Performe d at [facility] = 20) Laboratory Serv [facility] Blood Bank[address] [facility] [address]Unfb Free: [phone] A No. [id number] IAT (test code = Negative Performed a t [facility] 1185) Laboratory [facility] Blood Bank3 [address] [facility] [address]Nkua Free: [phone] A No. [id number] [facility] HospitalType and Screen - ONCE [id number] 16:13:38 Test Item Value Reference Range Interpretation Comments ABO & RH (test code A POSITIVE Performe d at [facility] = 20) Laboratory [facility] Blood [facility] [facility] [address]Kgdn Free: [phone] A No. [id number] IAT (test code = Negative Performed a t [facility] 1185) Laboratory [facility] Blood [facility]3 [facility] [address]Qiac Free: [phone] A No. [id number] [facility] HospitalCBC with [id number] 15:38:33 Test Item Value Reference Range Interpretation Comments WBC (test code = See_Comment [Automated 1990-2) message] The sy stem which generated this result transmitted reference range : 4.30 - 11.10 10*3/?L. The reference range was not used to interpret this result as normal/abnormal . RBC (test code = See_Comment [Automated 979-8) message] The sy stem which generated this [...] RDW-SD (test code = 45.7 fL 39.0-49.9 92183-3) RDW-CV (test code = 16.0 % 12.0-15.5 H 788-0) PLT (test code = See_Comment [Automated 777-3) message] The sy stem which generated this result transmitted reference range : 166 - 358 10*3/ ?L. The reference r jaleesa was not used to interpret this result as normal/abnormal . MPV (test code = 10.8 fL 9.5-12.9 87161-0) NRBC/100 WBC (test See_Comment [Automat ed code = [id number]) message] The system which generated this result transmitted reference range : 0.0 - 10.0 /100 WBCs. The refer ence range was not u sed to interpret th is result as normal/abnormal . NRBC x10^3 (test code See_Comment [Auto mated = [id number]) message] The s ystem which generated this result transmitted reference range : 10*3/?L. The reference range was not used to interpret this result as normal/abnormal . GRAN MAT (NEUT) % 74.6 % (test code = 770-8) IMM GRAN % (test code 0.60 % = 5560362876) LYMPH % (test code = 18.6 % 736-9) MONO % (test code = 5.5 % 5905-5) EOS % (test code = 0.5 % 713-8) BASO % (test code = 0.2 % 706-2) GRAN MAT x10^3(ANC) 7.23 10*3/uL 1.88-7.09 H (test code = 3588231865) IMM GRAN x10^3 (test 0.06 10*3/uL 0.00-0.06 code = 2735533809) LYMPH x10^3 (test code 1.80 10*3/uL 1.32-3.29 = 731-0) MONO x10^3 (test code 0.53 10*3/uL 0.33-0.92 = 742-7) EOS x10^3 (test code = 0.05 10*3/uL 0.03-0.39 711-2) BASO x10^3 (test code 0.01-0.07 = 704-7) Lab Interpretation Abnormal (test code = 40858-2) [facility] with [id number] 15:38:33 Test Item Value Reference Range Interpretation [...] RDW-SD (test code = 45.7 fL 39.0-49.9 72510-8) RDW-CV (test code = 16.0 % 12.0-15.5 H 788-0) PLT (test code = See_Comment [Automated 777-3) message] The sy stem which generated this result transmitted reference range : 166 - 358 10*3/ ?L. The reference r jaleesa was not used to interpret this result as normal/abnormal . MPV (test code = 10.8 fL 9.5-12.9 22904-0) NRBC/100 WBC (test See_Comment [Automat ed code = 6463668241) message] The system which generated this result transmitted reference range : 0.0 - 10.0 /100 WBCs. The refer ence range was not u sed to interpret th is result as normal/abnormal . NRBC x10^3 (test code See_Comment [Auto mated = 0811782069) message] The s ystem which generated this result transmitted reference range : 10*3/?L. The reference range was not used to interpret this result as normal/abnormal . GRAN MAT (NEUT) % 74.6 % (test code = 770-8) IMM GRAN % (test code 0.60 % = 4480336775) LYMPH % (test code = 18.6 % 736-9) MONO % (test code = 5.5 % 5905-5) EOS % (test code = 0.5 % 713-8) BASO % (test code = 0.2 % 706-2) GRAN MAT x10^3(ANC) 7.23 10*3/uL 1.88-7.09 H (test code = 3323035878) IMM GRAN x10^3 (test 0.06 10*3/uL 0.00-0.06 code = 9861122734) LYMPH x10^3 (test code 1.80 10*3/uL 1.32-3.29 = 731-0) MONO x10^3 (test code 0.53 10*3/uL 0.33-0.92 = 742-7) EOS x10^3 (test code = 0.05 10*3/uL 0.03-0.39 711-2) BASO x10^3 (test code 0.01-0.07 = 704-7) Lab Interpretation Abnormal (test code = 25954-5) [facility] URINALYSIS W SPECIFIC [id number] 16:07:00 Test Item Value Reference Range Interpretation [...] U APPEAR (test code = 3267) . [facility] URINALYSIS W SPECIFIC [id number] 17:23:00 Test Item Value Reference Range Interpretation [...] U APPEAR (test code = 3267) .. [facility] URINALYSIS W SPECIFIC [id number] 17:04:00 Test Item Value Reference Range Interpretation [...] U APPEAR (test code = 3267) . [facility] URINALYSIS W SPECIFIC [id number] 17:04:00 Test Item Value Reference Range Interpretation [...] U APPEAR (test code = 3267) . [facility] URINALYSIS W SPECIFIC [id number] 21:10:00 Test Item Value Reference Range Interpretation [...] POCT U APPEAR (test code = 3267) [facility] URINALYSIS W SPECIFIC [id number] 21:10:00 Test Item Value Reference Range Interpretation [...] POCT U APPEAR (test code = 3267) [facility] URINALYSIS W SPECIFIC [id number] 21:13:00 Test Item Value Reference Range Interpretation [...] POCT U APPEAR (test code = 3267) [facility] URINALYSIS W SPECIFIC [id number] 20:34:00 Test Item Value Reference Range Interpretation [...] (test code = 3267) [id number] 16:13:45 Test Item Value Reference Range Interpretation Comments Syphilis IgG/IgM (test Non-reactive Non-reactive code = 18344-1) KELSI (test code = KELSI) Non-reactive - No serologic evidence of T. pallidum infection. Cannot exclude incubating or early syphilis. Submit a second specimen in 2-4 weeks if syphilis is clinically suspected. Equivocal - Further testing to follow. Reactive - Further testing to follow. Lab Interpretation (test Normal code = 97014-6) [facility] WITH [id number] 05:55:09 Test Item Value Reference Range Interpretation Comments HIV Negative Negative Semi-quantitative (test code = 68507-5) KELSI (test code = Non-reactive for HIV-1 KELSI) antigen and HIV-1/HIV-2 antibodies. ?No laboratory evidence of HIV infection. ?Repeat in 2-4 weeks if acute HIV infection is suspected. [facility]
[2023-01-07] MEDS ORDERED: ONDANSETRON 4 MG/2 ML VIAL ONE (12:00)
[2023-01-07 12:13] LABS: Urine Blood Negative (Negative); Urine Glucose Negative (Negative); Urine Protein Negative (Negative); Urine Specific Gravity <=1.005 (1.005-1.030); Urine pH 6.5 (5.0-7.0)
[2023-01-07 12:31] LABS: Absolute Lymphocytes (CBC) 1.4 K/uL (0.7-4.9); Hematocrit 35.9 % (36.0-45.0); Lymphocytes % 31.5 % (15.3-44.8); MCV 77.3 fL (80-100); MPV 8.6 fL (7.6-11.3); RBC Red Blood Cell Count 4.64 M/uL (3.86-4.86)
[2023-01-07 12:45] LABS: Albumin 3.4 g/dL (3.4-5.0); Bilirubin Total 0.4 mg/dL (0.2-1.0); Potassium 3.5 mmol/L (3.5-5.1); Protein, Total 7.5 g/dL (6.4-8.2)
--- NOTE | 2023-01-07 13:34 | EDPHYS ---
Physician Documentation [facility] Name: Neva Reyes Age: 22 yrs Sex: Female : 2000 Arrival Date: 01/07/2023 Time: 11:29 Bed 7 Private MD: ED Physician Niko Bolton HPI: 01/07 14:57 This 22 yrs old Female presents to ER via Ambulatory with complaints of Nausea.kb 14:57 The patient presents to the emergency department with nausea. Onset: The kb symptoms/episode began/occurred 3 day(s) ago. Possible causes: unknown. The symptoms are aggravated by nothing. The symptoms are alleviated by nothing. Associated signs and symptoms: Pertinent positives: GI bleeding, nausea. Severity of symptoms: At their worst the symptoms were mild in the emergency department the symptoms are unchanged. The patient has not experienced similar symptoms in the past. The patient has not recently seen a physician. 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 - Social history:: Smoking status: Patient denies any tobacco usage or history of. ROS: 14:56 Constitutional: Negative for fever, chills, and weight loss. kb 14:56 Abdomen/GI: Positive for nausea, rectal bleeding, Negative for abdominal pain, vomiting, diarrhea. 14:56 All other systems are negative. Exam: 14:56 Constitutional: This is a well developed, well nourished patient who is awake, alert, kb and in no acute distress. Head/Face: Normocephalic, atraumatic. ENT: Moist Mucous membranes Cardiovascular: Regular rate and rhythm with a normal S1 and S2. No gallops, murmurs, or rubs. No pulse deficits. Respiratory: Respirations even and unlabored. No increased work of breathing. Talking in full sentences Abdomen/GI: Soft, non-tender. No distention Skin: Warm, dry with normal turgor. Normal color. MS/ Extremity: Pulses equal, no cyanosis. Neurovascular intact. Full, normal range of motion. Neuro: Awake and alert, GCS 15, oriented to person, place, time, and situation. Moves all extremities. Normal gait. Vital Signs: 11:43 BP 127 / 63; Pulse 76; Resp 18; Temp 97.8; Pulse Ox 100% on R/A; Height 5 ft. 3 in. ph (160.02 cm); 13:27 BP 127 / 76; Pulse 72; Resp 18; Pulse Ox 99% on R/A; hb MDM: 11:34 Patient medically screened. kb 14:55 Differential diagnosis: gastritis, gastroenteritis, abnormal electrolytes, gi bleed. kb Data reviewed: vital signs, nurses notes. Test considered but Not performed: CT: CT abd/pelvis considered, but pt has no abd pain or tenderness. Counseling: I had a detailed discussion with the patient and/or guardian regarding: the historical points, exam findings, and any diagnostic results supporting the discharge/admit diagnosis, lab results, the need for outpatient follow up, a family practitioner, a track laborer, to return to the emergency department if symptoms worsen or persist or if there are any questions or concerns that arise at home. 14:57 ED course: Patient is a 22-year-old female with a history of recent in kb October who presents with nausea for approximately 3 days. Denies abdominal pain, fever, vomiting, diarrhea. Reports she did have a bowel movement last Tuesday with blood but is since had normal bowel movements without blood. No abdominal tenderness upon exam. Serum labs obtained and reviewed. Nausea resolved after Zofran. Discussed need for follow-up with GI for continued symptoms and if blood in stool returns. Educated to return for worsening symptoms, abdominal pain, fever. Verbal understanding received.. 01/07 11:42 Order name: CBC with Diff; Complete Time: 12:34 kb 01/07 11:42 Order name: CMP; Complete Time: 12:55 kb 01/07 11:42 Order name: Lipase; Complete Time: 12:55 kb 01/07 12:13 Order name: Urine Dipstick-Ancillary; Complete Time: 12:28 EDMS 01/07 12:18 Order name: Test, Serum; Complete Time: 12:55 eb 01/07 11:42 Order name: IV Saline Lock; Complete Time: 12:12 kb 01/07 11:42 Order name: Labs collected and sent; Complete Time: 12:12 kb 01/07 11:42 Order name: Urine Dipstick-Ancillary (obtain specimen); Complete Time: 12:12 kb 01/07 11:42 Order name: Urine Test (obtain specimen); Complete Time: 12:12 kb Administered Medications: 12:12 Drug: Zofran (Ondansetron) 4 mg Route: IVP; Site: right antecubital; hb Disposition: 16:32 Co-signature as Attending Physician, Niko Bolton MD I reviewed the patient's care rt provided by the Advanced Practice Provider and agree with the diagnosis and treatment plan. Disposition Summary: 01/07/23 13:33 Discharge Ordered Location: Home kb Condition: Stable kb Diagnosis - Nausea kb Followup: kb - With: Emergency Department - When: As needed - Reason: Worsening of condition Followup: kb - With: Private Physician - When: 2 - 3 days - Reason: Recheck today's complaints, Continuance of care, Re-evaluation by your physician Discharge Instructions: - Discharge Summary Sheet kb - Nausea, Adult, [facility] kb Forms: - Medication Reconciliation Form kb - Thank You Letter kb - Antibiotic Education kb - Prescription Opioid Use kb Prescriptions: - ondansetron 4 mg Oral - take 1 tablet by SUBLINGUAL route every 8 hours As needed; 15 tablet; Refills: kb 0, Product Selection Permitted Signatures: Dispatcher [employer] Mary Jansen, NUBIA CHRISTOPHER-Pippa Huerta, RN RN Marina Montgomery, RN RN Niko Bolton MD MD rt
--- NOTE | 2023-01-07 13:34 | ER ---
Nurse's Notes [facility] Name: Neva Reyes Age: 22 yrs Sex: Female : 2000 Arrival Date: 01/07/2023 Time: 11:29 Bed 7 Private MD: Diagnosis: Nausea Presentation: 01/07 11:43 Chief complaint: Patient states: Nausea x 2-3 days, blood in stool on Tuesday, denies ph V/D or fever, also denies pain, states that upper abdomen "feels nervous", states that she delivered via in October, has been "feeling overwhelmed" since of her daughter. Coronavirus screen: Vaccine status: Patient reports being unvaccinated. Ebola Screen: No symptoms or risks identified at this time. Initial Sepsis Screen: Does the patient meet any 2 criteria? No. Patient's initial sepsis screen is negative. Does the patient have a suspected source of infection? No. Patient's initial sepsis screen is negative. Risk Assessment: Do you want to hurt yourself or someone else? Patient reports no desire to harm self or others. Onset of symptoms was January 07, 2023. 11:43 Method Of Arrival: Ambulatory ph 11:43 Acuity: HILDA 3 ph Triage Assessment: 11:47 General: Appears in no apparent distress. Behavior is anxious. Pain: Denies pain. ph Neuro: Level of Consciousness is awake, alert, obeys commands, Oriented to person, place, time, situation. GI: Abdomen is non-distended, Reports nausea, Patient currently denies vomiting. 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 - Social history:: Smoking status: Patient denies any tobacco usage or history of. Screenin:48 [facility] ED Fall Risk Assessment (Adult) History of falling in the last 3 months, ph including since admission No falls in past 3 months (0 pts) Confusion or Disorientation No (0 pts) Intoxicated or Sedated No (0 pts) Impaired Gait No (0 pts) Mobility Assist Device Used No (0 pt) Altered Elimination No (0 pt) Score/Fall Risk Level 0 - 2 = Low Risk. Abuse screen: Denies threats or abuse. Denies injuries from another. Nutritional screening: No deficits noted. Tuberculosis screening: No symptoms or risk factors identified. Assessment: 12:12 General: Appears in no apparent distress. Behavior is calm, cooperative. Pain: Denies hb pain. Neuro: Level of Consciousness is awake, alert, obeys commands, Oriented to person, place, time, situation. Cardiovascular: Patient's skin is warm and dry. Respiratory: Respiratory effort is even, unlabored, Respiratory pattern is regular, symmetrical. GI: Reports nausea. : No signs and/or symptoms were reported regarding the genitourinary system. EENT: No signs and/or symptoms were reported regarding the EENT system. Derm: Skin is pink, warm \\T\\ dry. Musculoskeletal: No signs and/or symptoms reported regarding the musculoskeletal system. 13:27 Reassessment: Patient appears in no apparent distress at this time. Patient and/or hb family updated on plan of care and expected duration. Pain level reassessed. Patient is alert, oriented x 3, equal unlabored respirations, skin warm/dry/pink. Vital Signs: 11:43 BP 127 / 63; Pulse 76; Resp 18; Temp 97.8; Pulse Ox 100% on R/A; Height 5 ft. 3 in. ph (160.02 cm); 13:27 BP 127 / 76; Pulse 72; Resp 18; Pulse Ox 99% on R/A; hb ED Course: 11:29 Patient arrived in ED. mr 11:30 Mary Mancia [facility]-C [facility]. kb 11:30 Niko Bolton MD is Attending Physician. kb 11:46 Triage completed. ph 11:47 Arm band placed on Patient placed in an exam room. ph 12:05 Inserted saline lock: 22 gauge in right antecubital area, using aseptic technique. hb Blood collected. 12:13 Patient has correct armband on for positive identification. hb 12:14 Marina Montgomery, RN is Primary Nurse. hb 13:57 No provider procedures requiring assistance completed. IV discontinued, intact, hb bleeding controlled, No redness/swelling at site. Administered Medications: 12:12 Drug: Zofran (Ondansetron) 4 mg Route: IVP; Site: right antecubital; hb Medication: 11:47 VIS not applicable for this client. ph Outcome: 13:33 Discharge ordered by . mirtha 13:57 Discharged to home ambulatory. hb 13:57 Condition: stable 13:57 Discharge instructions given to patient, Instructed on discharge instructions, follow up and referral plans. medication usage, Demonstrated understanding of instructions, follow-up care, medications. 13:57 Patient left the ED. hb Signatures: Mary Mancia, CANDI-C PARTS CONTROL CLERK-Roslyn Franklin Pippa Flores RN RN Marina Montgomery RN RN hb
[2023-01-07 14:42] VITALS: BP 127/63; TEMP 97.8; O2SAT 100
== END 2023-01-07 13:57 | disposition home or self-care (01) ==
LOC: ER 11:27
DX: R11.0 Nausea (principal); Z91.013 Allergy to seafood
CPT/HCPCS: 85025; 36415; 84703; 81003; 83690; 80053; 96374; 99283; J2405

== ENCOUNTER 2024-07-28 19:06 | Emergency (ER) | payer OTHER ==
--- OUTSIDE RECORDS SUMMARY | 2024-07-28 19:10 | XMS REPORT | Continuity of Care Document ---
Author Name Unknown Address [address] [facility] [address] [place] [address] [facility] thconnect Address [address] [facility] 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 Name Role Phone Celina Thompson Primary Care Physician NATALIIA DODSON Attending Clinician Unavail able Nataliia Corey Attending Clinician + Doctor Unassigned, Tangerine Attending Clinician U YOLY Jaimes Attending Clinician Unavaila [facility] Provider, [facility] Temp Attending Clinician Donna Yoly Monroe CNM Attending Clinician [phone]- [phone] PETER RODRIGUEZ Attending Clinician Unavailable Peter Vargas Attending Clinician [phone] FIDENCIO COOLEY Attending Clinician Unavailable Fidencio Cooley MD Attending Clinician [phone] [facility] Attending Clinician Unava ilKatrin Ho Attending Clinici an BIANKA WAHL Attending Clinician Unav Bianka Tse MD Attending Clinician + Steve Jimenez MD Attending Clinician [phone] JUNIOR SANCHEZ Attending Clinician Unavailable Delroy Steele Attending Clinician [phone] Junior Sanchez DO Attending Clinician +[phone] ROCKY CONRAD Attending Clinician Unavailluke Conrad MD, Rocky Carballo Attending Clinician + [phone] Tana DUKE, Jennifer Attending Clinician + [phone] Amber Conde MD Attending Clinician +- [phone] SHABANA SANCHEZ Attending Clinician Unavailable AUDREY HAYDEN Attending Clinician Unavailable Audrey Hayden MD Attending Clinician [phone] ROSAMARIA SOSA Attending Clinician Unavailable Rosamaria Sosa PA-C Attending Clinician [phone] Lab, KeyannaRmchjo ann Attending Clinician Unavailable Ultrasound, KeyannaMfdomonique Attending Clinician Unavailluke Yap MD, Leola Attending Clinician + LEOLA GRECO Attending Clinician Unav nusrat Michele MD, Leatha Yung Attending Clinician [phone] LEATHA MICHELE Attending Clinician Unavailable Paul CHRISTOPHER, Michellenda R Attending Clinician + [phone] Cecile Smith RN Attending Clinician Unavailable Debra Graves RN Attending Clinician UnavailJanette Garcia MD Attending Clinician [phone] JANETTE THOMSON Attending Clinician Unavailable JANETTE THOMSON Attending Clinician Unavailable BIANKA WAHL Admitting Clinician Unav nusrat Wahl MD, Bianka Hernandez Admitting Clinician + ROCKY CONRAD Admitting Clinician Unavailluke Conrad MD, Rocky Carballo Admitting Clinician + [phone] AUDREY HAYDEN Admitting Clinician Unavailable Audrey Hayden MD Admitting Clinician [phone] Payers Payer Name Policy Type Policy Number Effective Date Expirati on Date Source [employer] [facility] [employer] [id number] 2022 00:00:00 [place] [employer] [id number] 2022 00:00:00 [place] [id number] 2022 00:00:00 Problems Condition Name Condition Details Condition Category Status Onset Date Resolution Date Last Treatment Date Treating Clinician Comments Source spinal headache spinal headache Disease Active 2021-11 2 00:00: 00 [facility] Morbid obesity with body mass index of 40.0-49.9 Morbid obesity with body mass index of 40.0-49.9 Disease Active 2021-11 2-17 00:00: 00 [facility] 40 weeks gestation of 40 weeks gestation of Disease Active 2021-11 2-16 00:00: 00 [facility] Excessive weight gain affecting Excessive weight gain affecting Disease Active 2021-11 2-03 00:00: 00 [facility] Refused influenza vaccine Refused influenza vaccine Disease Active 2021-11 2- 00:00: 00 [facility] Anemia during in third trimester Anemia during in third trimester Disease Active 2021-11 1-16 00:00: 00 [facility] Pain of round ligament during Pain of round ligament during Disease Active 2021-11 0-27 00:00: 00 [facility] Adnexal cyst Adnexal cyst Disease Active 06-18 00:00: 00 Overview: Formattin g of this note might be different from the original. Noted on usg left side, follow up usg in 3/4 weeks scheduled [facility] Left ovarian cyst- measuring 5.89 x 4.51 x 5.55 cm Left ovarian cyst- measuring 5.89 x 4.51 x 5.55 cm Disease Active 06-18 00:00: 00 Overview: Formattin g of this note might be different from the original. Noted on usg left side, follow up usg in 3/4 weeks scheduled [facility] Supervisio n of high-risk Supervisio n of high-risk Disease Active 03-19 00:00: 00 [facility] Nausea and vomiting during Nausea and vomiting during Disease Active 4 00:00: 00 [facility] Obesity in Obesity in Disease Active 03-19 00:00: 00 [facility] Allergies, Adverse Reactions, Alerts Allergy Name Allergy Type Status Severity Reaction(s) Onset Date Inactive Date Treating Clinician Comments Source SHRIMP DRUG INGREDI Active Swelling 03-19 00:00: 00 [facility] Shrimp Propensi ty to adverse reaction s Active Swelling 03-19 00:00: 00 [facility] Social History Social Habit Start Date Stop Date Quantity Comments Source ASSERTION 2022-02-12 00:00:00 [facility] SARS-[facility]2 (event) 2022-12-21 00:00:00 2022-12-31 15:44:00 Not sure [facility] History of Social function 2022-12-21 00:00:00 2022-12-21 00:00:00 [facility] Alcohol intake 2022-03-19 00:00:00 2022-03-19 00:00:00 Lifetime non-drinker (finding) [facility] Tobacco use and exposure 2021-04-22 00:00:00 2021-04-22 00:00:00 Smokeless tobacco non-user [facility] Sex Assigned At 2001 00:00:00 2000 00:00:00 [facility] Smoking Status Start Date Stop Date Source Never smoked tobacco [facility] Medications Ordered Medication Name Filled Medication Name Start Date Stop Date Current Medication? Ordering Clinician Indication Dosage Frequency Signature (SIG) Comments Components Source TAKE 1 CAPSULE TWICE DAILY. 12-20 00:00: 00 Yes 100 Haseeb Burch TAKE 1 TABLET DAILY. 11-22 00:00: 00 01-22 00:00 :00 No 10 Haseeb Burch TAKE 1 CAPSULE EVERY 8 HOURS. 11-22 00:00: 00 01-22 00:00 :00 No 500 Haseeb Burch TAKE 10 ML EVERY 4-6 HOURS NEEDED 11-22 00:00: 00 01-22 00:00 :00 No [id number] Haseeb Burch amoxicillin -clavulanat e 875-125 mg per tablet 12-19 00:00: 00 Yes [id number] TAKE 1 TABLET BY MOUTH EVERY 12 HOURS FOR 10 DAYS FOR INFECTIOUS PROCESS [facility] TAKE 1 TABLET BY MOUTH EVERY 12 HOURS FOR 10 DAYS FOR INFECTIOUS PROCESS - 00:00: 00 Yes Haseeb Burch butalbital- acetaminoph en-caff (ESGIC) 50-325-40 mg tablet 1 tablet 2021-11 21:00: 00 11-11 20:11 :00 No 1{tbl} 1 tablet, Oral, ONCE NOW, 1 dose, On Jeanie 11/11/22 at 1500, Routine [facility] butalbital- acetaminoph en-caff (ESGIC) 50-325-40 mg tablet 1 tablet 2021-11 00:15: 00 11-10 23:37 :00 No 1{tbl} 1 tablet, Oral, ONCE, 1 dose, On Tue11/10/22 at 1815, Routine [facility] cefTRIAXone (ROCEPHIN) injection 1,000 mg 2021-11 00:00: 00 Yes 1000mg 1,000 mg, Intramuscu lar, Q24H ABX, First dose (after last modificati on) on Tue11/10/22 at 1800, Until Discontinu ed, MO
Re ason for Anti-Infec tive: Empiric Therapy for Suspected Infection& lt;br>Empi cricket Therapy Site: Urine
D uration of therapy: 72 hours [facility] butalbital- acetaminoph en-caff (ESGIC) 50-325-40 mg tablet 2021-11 00:00: 00 12-23 00:00 :00 No [id number] 1{tbl} Take 1 tablet by mouth every 6 (six) hours. [facility] metoclopram max HCl (REGLAN) tablet 10 mg 2021-11 22:30: 00 Yes 10mg 10 mg, Oral, AC, First dose on Tue11/10/22 at 1630, Until Discontinu ed, Routine [facility] diphenhydrA MINE (BENADRYL) tablet 50 mg 2021-11 22:30: 00 11-10 22:26 :00 No 50mg 50 mg, Oral, ONCE, 1 dose, On Tue11/10/22 at 1630, MO [facility] cephALEXin (KEFLEX) 500 mg capsule 2021-11 00:00: 00 11-18 05:59 :00 No [id number] 500mg Take 1 capsule by mouth in the morning and 1 capsule at noon and 1 capsule in the evening. Do all this for 7 days. [facility] vitamin w/FA tablet 2021-11 00:00: 00 12-23 00:00 :00 No [id number] 1{tbl} Take 1 tablet by mouth in the morning. [facility] docusate 100 mg capsule 2021-11 00:00: 00 12-23 00:00 :00 No [id number] 200mg Take 2 capsules by mouth once daily as needed for Constipati on. [facility] ferrous sulfate 325 mg (65 mg iron) tablet 2021-11 00:00: 00 12-23 00:00 :00 No [id number] 325mg Take 1 tablet by mouth in the morning and 1 tablet in the evening. [facility] ibuprofen 600 mg tablet 2021-11 00:00: 00 12-23 00:00 :00 No [id number] 600mg Take 1 tablet by mouth every 6 (six) hours as needed (Pain). Take with food or milk. [facility] HYDROcodone -acetaminop hen 5-325 mg tablet 2021-11 00:00: 00 11-16 05:59 :00 No [id number] 1{tbl} Take 1 tablet by mouth every 6 (six) hours as needed (Pain scale above 4) for up to 7 days. Do not exceed 3 grams of acetaminop hen in 24 hours. Indication s: acute pain [facility] rho(D) immune globulin (RHOGAM) syringe 300 mcg 2021-11 10:46: 15 Yes 300ug 300 mcg, Intramuscu lar, ONCE, For 1 dose, Conditiona l, Routine [facility] HYDROcodone -acetaminop hen (NORCO 5) 5-325 mg tablet 2 tablet 2021-11 10:46: 12 Yes 2{tbl} 2 tablet, Oral, Q6HPRN, Starting on 11/07/22 at 0446, Until Discontinu ed, Routine, Pain (scale 7-10), Alternate with Ibuprofen [facility] HYDROcodone -acetaminop hen (NORCO 5) 5-325 mg tablet 1 tablet 2021-11 10:46: 11 Yes 1{tbl} 1 tablet, Oral, Q6HPRN, Starting on 11/07/22 at 0446, Until Discontinu ed, Routine, Pain (scale 4-6), Alternate with Ibuprofen [facility] ibuprofen (IBU) tablet 600 mg 2021-11 10:46: 11 Yes 600mg 600 mg, Oral, Q6HPRN, Starting on 11/07/22 at 0446, Until Discontinu ed, Routine, Pain (scale 1-3) [facility] diphenhydrA MINE (BENADRYL) injection 25 mg 2021-11 10:46: 11 Yes 25mg 25 mg, Slow IV Push, Q6HPRN, Starting on 11/07/22 at 0446, Until Discontinu ed, Routine, Itching [facility] diphenhydrA MINE (BENADRYL) tablet 25 mg 2021-11 10:46: 11 Yes 25mg 25 mg, Oral, Q6HPRN, Starting on 11/07/22 at 0446, Until Discontinu ed, Routine, Sleep, Itching [facility] ondansetron (ZOFRAN (PF)) injection 4 mg 2021-11 10:46: 11 Yes 4mg 4 mg, Slow IV Push, Q8HPRN, Starting on 11/07/22 at 0446, Until Discontinu ed, Routine, Nausea and Vomiting (N/V) [facility] bisacodyL (DULCOLAX) suppository 10 mg 2021-11 10:46: 11 Yes 10mg 10 mg, Rectal, QDAILYPRN, Starting on 11/07/22 at 0446, Until Discontinu ed, Routine, Constipati on [facility] simethicone (GAS RELIEF (SIMETHICON E)) chewable tablet 160 mg 2021-11 10:46: 11 Yes 160mg 160 mg, Oral, PC+HSPRN, Starting on Tue11/07/22 at 0446, Until Discontinu ed, Routine, Gas [facility] docusate (COLACE) capsule 200 mg 2021-11 10:46: 11 Yes 200mg 200 mg, Oral, QDAILYPRN, Starting on Tue11/07/22 at 0446, Until Discontinu ed, Routine, Constipati on [facility] magnesium hydroxide (MILK OF MAGNESIA) 400 mg/5 mL suspension 30 mL 2021-11 10:46: 11 Yes 30mL 30 mL, Oral, QDAILYPRN, Starting on Tue11/07/22 at 0446, Until Discontinu ed, Routine, Constipati on [facility] lactated ringers IV infusion 1,000 mL 2021-11 10:46: 11 Yes 1000mL at 125 mL/hr, 1,000 mL, IV Infusion, PRN, 1 dose, Starting on Tue11/07/22 at 0446, Until Discontinu ed, Routine [facility] nalbuphine (NUBAIN) injection 5 mg 2021-11 08:32: 34 Yes 5mg 5 mg, Intravenou s, PRN, 1 dose, Starting on Tue11/07/22 at 0232, Until Discontinu ed, Routine, itching, PACU [facility] naloxone (NARCAN) injection 0.4 mg 2021-11 08:32: 34 11-09 08:31 :34 No .4mg 0.4 mg, Slow IV Push, PRN - SEE ROCAEL QUEZADA, Starting on Tue11/07/22 at 0232, Until Tue11/09/22 at 0231, Routine, Analgesia Recovery, PACU [facility] ketorolac (TORADOL) injection 30 mg 2021-11 08:32: 34 11-07 08:47 :00 No 30mg 30 mg, Slow IV Push, PRN, 1 dose, Starting on Tue11/07/22 at 0232, Until Tue11/09/22 at 2359, Routine, Pain (scale 7-10), PACU [facility] methylergon ovine (METHERGINE ) injection 2021-11 07:22: 00 Yes Intramuscu lar, ONCE INTRA PROCEDURE, Starting on Tue11/07/22 at 0122, Until Discontinu ed, Routine, Intra-op [facility] diphenhydrA MINE (BENADRYL) injection 2021-11 07:20: 00 Yes Slow IV Push, ONCE INTRA PROCEDURE, Starting on Tue11/07/22 at 0120, Until Discontinu ed, Routine, Intra-op [facility] ondansetron (ZOFRAN (PF)) injection 2021-11 07:20: 00 Yes Slow IV Push, ONCE INTRA PROCEDURE, Starting on Tue11/07/22 at 0120, Until Discontinu ed, Routine, Intra-op [facility] oxytocin (PITOCIN) 30 units in NS 500 mL IV infusion 2021-11 07:13: 00 Yes IV Infusion, CONTINUOUS PRN, Starting on Tue11/07/22 at 0113, Until Discontinu ed, Routine, Intra-op [facility] lactated ringers IV infusion 2021-11 06:52: 00 Yes IV Infusion, CONTINUOUS PRN, Starting on Tue11/07/22 at 0052, Until Discontinu ed, Routine, Intra-op [facility] lactated ringers IV infusion 1,000 mL 2021-11 06:45: 00 11-08 15:44 :00 No 1000mL at 125 mL/hr, 1,000 mL, IV Infusion, CONTINUOUS , Starting on Tue11/07/22 at 0045, Until Tue11/08/22 at 0944, MO [facility] lidocaine-e pinephrine (XYLOCAINE W/EPINEPHRI NE) 2 %-1:200,000 injection 2021-11 06:42: 00 Yes Intravenou s, ONCE INTRA PROCEDURE, Starting on Tue11/07/22 at 0042, Until Discontinu ed, Routine, [facility]op [facility] HYDROcodone -acetaminop hen (NORCO) 10-325 mg tablet 1 tablet 2021-11 06:34: 40 11-07 09:55 :00 No 1{tbl} 1 tablet, Oral, Q6HPRN, 1 dose, Starting on 11/07/22 at 0034, Until Discontinu ed, Routine, Pain (scale 7-10) [facility] HYDROcodone -acetaminop hen (NORCO 5) 5-325 mg tablet 1 tablet 2021-11 06:34: 39 11-07 18:52 :00 No 1{tbl} 1 tablet, Oral, Q6HPRN, 1 dose, Starting on Tue11/07/22 at 0034, Until Discontinu ed, Routine, Pain (scale 4-6) [facility] ibuprofen (IBU) tablet 600 mg 2021-11 06:34: 38 Yes 600mg 600 mg, Oral, Q6HPRN, Starting on 11/07/22 at 0034, Until Discontinu ed, Routine, Pain (scale 1-3) [facility] oxytocin (PITOCIN) 30 units in NS 500 mL IV infusion 2021-11 06:34: 25 Yes 600mL/h 600 mL/hr, IV Infusion, PRN, For post delivery uterine atony., Starting on Tue11/07/[address] at 600 mL/hr for 1 hr then 150 mL/hr for 1 hr.
[facility] oxytocin (PITOCIN) 30 units in NS 500 mL IV infusion 2021-11 06:34: 25 Yes 300mL/h 300 mL/hr, IV Infusion, SEE-INSTRU CTIONS, Starting on Tue11/07/[address] at 300 mL/hr for 1 hr then 150 mL/hr for 1 hr. & nbsp; For post delivery uterotonic
[facility] azithromyci n (ZITHROMAX) 500 mg in NaCl 0.9% (NS) 250 mL VIAL-MATE IV piggyback 2021-11 06:02: 05 11-08 06:01 :05 No 500mg 500 mg, IV Piggyback, O.R. HOLDING ONCE, Starting on 11/07/22 at 0002, Until 11/08/22 at 0001, Administer over 60 Minutes, 250 mL
Reas on for Anti-Infec tive: Surgical Prophylaxi s
Surgi natalie Prophylaxi s: PATROL AGENT
Duration of therapy: within 24 hours of surgery
Reason for Anti-Infec tive: Documented Infection< br>Documen steven Infection Site: Pelvic
Duration of Therapy: 7 days [facility] ceFAZolin in 0.9% sodium chloride (ANCEF) 2 gram/100 mL RTU 2 g 2021-11 06:01: 51 11-08 06:00 :51 No 2000mg 2 g (2,000 mg), IV Piggyback, O.R. HOLDING ONCE, Starting on 11/07/22 at 0001, Until Tue11/08/22 at 0000, Administer over 30 Minutes, 100 mL
Reas on for Anti-Infec tive: Surgical Prophylaxi s
Surgi natalie Prophylaxi s: PATROL AGENT
Duration of therapy: within 24 hours of surgery [facility] diphenhydrA MINE (BENADRYL) injection 25 mg 2021-11 05:15: 00 11-07 04:26 :00 No 25mg 25 mg, Intravenou s, ONCE, 1 dose, On 11/06/22 at 2315, Routine [facility] tobramycin (NEBCIN) 380 mg in NaCl 0.9% (NS) piggyback 2021-11 02:30: 00 11-08 02:39 :00 No 5mg/kg 380 mg (rounded from 377 mg = 5 mg/kg ?75.4 kg Adjusted weight), IV Piggyback, Q24H ABX, 2 doses, First dose on 11/06/22 at 2030, Last dose on 11/07/22 at 2030, Administer over 30 Minutes, 50 mL
Reas on for Anti-Infec tive: Documented Infection< br>Documen steven Infection Site: Pelvic
Duration of Therapy: 7 days [facility] ampicillin (POLYCILLIN -N) 2,000 mg in NaCl 0.9% (NS) 100 mL MINI-BAG 2021-11 02:30: 00 11-08 12:31 :36 No 2g 2,000 mg (2 g), IV Piggyback, Q6H ABX, First dose on 11/06/22 at 2030, Until Discontinu ed, Administer over 30 Minutes, 100 mL
Reas on for Anti-Infec tive: Documented Infection< br>Documen steven Infection Site: Pelvic
Duration of Therapy: 7 days [facility] acetaminoph en (TYLENOL) tablet 1,000 mg 2021-11 02:30: 00 11-07 01:36 :00 No 1000mg 1,000 mg, Oral, ONCE, 1 dose, On [facility] 11/06/22 at 2030, Routine [facility] hydrOXYzine (ATARAX) tablet 10 mg 2021-11 21:30: 00 11-06 20:39 :00 No 10mg 10 mg, Oral, ONCE, 1 dose, On 11/06/22 at 1530, Routine [facility] FENTanyl PF (SUBLIMAZE (PF)) injection 50 mcg 2021-11 21:30: 00 11-06 21:21 :00 No 50ug 50 mcg, Slow IV Push, ONCE, 1 dose, On [facility] 11/06/22 at 1530, Routine [facility] PIB ropivacaine 0.2 % (NAROPIN (PF)) epidural infusion 2021-11 05:35: 00 Yes Epidural, CONTINUOUS PRN, Starting on Tue11/05/22 at 2335, Until Discontinu ed, Routine, Intra-op [facility] lidocaine-e pinephrine (XYLOCAINE W/EPINEPHRI NE) 2 %-1:200,000 injection 2021-11 05:30: 00 Yes Intravenou s, ONCE INTRA PROCEDURE, Starting on Tue11/05/22 at 2330, Until Discontinu ed, Routine, [facility]-op [facility] oxytocin (PITOCIN) 30 units in NS 500 mL IV infusion 2021-11 04:59: 10 Yes 2mU/min at 2-40 mL/hr, IV Infusion, TITRATE, Starting on Tue11/05/22 at 2259, Until Discontinu ed, MO [facility] lactated ringers IV infusion 500 mL 2021-11 04:45: 00 11-06 04:47 :06 No 500mL at 999 mL/hr, 500 mL, IV Infusion, ONCE, 1 dose, On Tue11/05/22 at 2245, Routine [facility] sodium citrate-cit cricket acid (BICITRA) 500-334 mg/5 mL solution 30 mL 2021-11 03:58: 39 Yes 30mL 30 mL, Oral, PRE-PROCED URE ONCE, 1 dose, Starting on Tue11/05/22 at 2158, Until Discontinu ed, Routine, Surgery/Pr ocedure [facility] lactated ringers IV infusion 500 mL 2021-11 03:58: 39 Yes 500mL at 999 mL/hr, 500 mL, IV Infusion, PRN - SEE INSTRUCTIO NS, 1 dose, Starting on Tue11/05/22 at 2158, Until Discontinu ed, Routine [facility] proMETHazin e (PHENERGAN) 12.5 mg in NS 50 mL IV piggyback (CNR) 2021-11 00:30: 00 11-06 00:27 :04 No 12.5mg 12.5 mg, IV Piggyback, at 200 mL/hr Administer over 15 Minutes, ONCE, 1 dose, On Tue11/05/22 at 1830, Routine [facility] butorphanol (STADOL) injection 1 mg 2021-11 00:15: 00 11-06 00:10 :00 No 1mg 1 mg, Intravenou s, ONCE, 1 dose, On Tue11/05/22 at 1815, Routine [facility] butorphanol (STADOL) injection 1 mg 2021-11 17:45: 00 11-05 16:46 :00 No 1mg 1 mg, Intravenou s, ONCE, 1 dose, On Tue11/05/22 at 1145, Routine [facility] lidocaine 1% (XYLOCAINE) 10 mg/mL (1 %) injection 50 mL 2021-11 14:54: 23 Yes 50mL 50 mL, Infiltrati on, PRN - SEE INSTRUCTIO NS, Starting on Tue11/05/22 at 0854, Until Discontinu ed, Routine, Local anesthesia , For laceration repair only as a local anesthetic as indicated. [facility] lidocaine 1% (PF) (XYLOCAINE) injection 0.3 mL 2021-11 14:54: 23 Yes .3mL 0.3 mL, Infiltrati on, PRN - SEE INSTRUCTIO NS, Starting on Tue11/05/22 at 0854, Until Discontinu ed, Routine, Local anesthesia , For IV line placement only as a local anesthetic . [facility] lactated ringers IV infusion 500 mL 2021-11 14:54: 23 Yes 500mL at 999 mL/hr, 500 mL, IV Infusion, PRN - SEE INSTRUCTIO NS, Starting on Tue11/05/22 at 0854, Until Discontinu ed, Routine [facility] D5W-LR IV infusion 1,000 mL 2021-11 14:54: 23 Yes 1000mL at 1-125 mL/hr, IV Infusion, TITRATE, Starting on Tue11/05/22 at 0854, Until Discontinu ed, Routine [facility] sodium citrate-cit cricket acid (BICITRA) 500-334 mg/5 mL solution 30 mL 2021-11 14:54: 23 11-06 04:15 :00 No 30mL 30 mL, Oral, PRE-PROCED URE ONCE, 1 dose, Starting on Tue11/05/22 at 0854, Until Discontinu ed, Routine, Surgery/Pr ocedure [facility] tolnaftate (TINACTIN) 1 % cream 2021-11 00:00: 00 12-23 00:00 :00 No [id number] Apply to area(s) 2 (two) times daily. Until rash clears plus 2 more weeks [facility] ascorbic acid, vitamin C, 500 mg tablet 08-06 00:00: 00 12-23 00:00 :00 No [id number] 500mg Take 1 tablet by mouth in the morning and 1 tablet at noon and 1 tablet in the evening. [facility] ferrous sulfate 325 mg (65 mg iron) tablet 08-06 00:00: 00 12-23 00:00 :00 No [id number] 325mg Take 1 tablet by mouth in the morning and 1 tablet in the evening. [facility] PNV 67-iron ps-folate no.1-dha (VITAFOL ULTRA) 29 mg iron- 1 mg-200 mg Cap 03-19 00:00: 00 Yes [id number] 1{each} Take 1 Each by mouth daily. [facility] PNV 67-iron ps-folate no.1-dha (VITAFOL ULTRA) 29 mg iron- 1 mg-200 mg Cap 03-19 00:00: 00 Yes [id number] 1{each} Take 1 Each by mouth daily. [facility] proMETHazin e 25 mg tablet 03-19 00:00: 00 10-23 00:00 :00 No [id number] 25mg Take 1 tablet by mouth every 6 (six) hours as needed for Nausea and Vomiting (N/V). [facility] Vital Signs Vital Name Observation Time Observation Value Comments S ource Systolic blood pressure 2022-12-31 21:44:00 99 mm[Hg] [facility] Diastolic blood pressure 2022-12-31 21:44:00 61 mm[Hg] [facility] Heart rate 2022-12-31 21:44:00 80 /min [facility] Body temperature 2022-12-31 21:44:00 36 Aicha [facility] Respiratory rate 2022-12-31 21:44:00 18 /min [facility] Body height 2022-12-31 21:44:00 160 cm [facility] Body weight 2022-12-31 21:44:00 93.033 kg [facility] BMI 2022-12-31 21:44:00 36.33 kg/m2 [facility] Systolic blood pressure 2022-12-21 22:00:00 98 mm[Hg] [facility] Diastolic blood pressure 2022-12-21 22:00:00 54 mm[Hg] [facility] Heart rate 2022-12-21 22:00:00 69 /min [facility] Body temperature 2022-12-21 22:00:00 36.5 Aicha [facility] Respiratory rate 2022-12-21 22:00:00 18 /min [facility] Body height 2022-12-21 22:00:00 160 cm [facility] Body weight 2022-12-21 22:00:00 94.802 kg [facility] BMI 2022-12-21 22:00:00 37.02 kg/m2 [facility] Systolic blood pressure 2022-12-19 22:41:00 115 mm[Hg] [facility] Diastolic blood pressure 2022-12-19 22:41:00 60 mm[Hg] [facility] Heart rate 2022-12-19 22:41:00 74 /min [facility] [facility] Body temperature 2022-12-19 22:41:00 36.44 Aicha [facility] Respiratory rate 2022-12-19 22:41:00 12 /min [facility] Body height 2022-12-19 22:41:00 160 cm [facility] Body weight 2022-12-19 22:41:00 94.802 kg [facility] BMI 2022-12-19 22:41:00 37.02 kg/m2 [facility] Oxygen saturation in Arterial blood by Pulse oximetry 2022-12-19 22:41:00 99 /min [facility] Systolic blood pressure 2022-12-01 04:21:00 118 mm[Hg] [facility] Diastolic blood pressure 2022-12-01 04:21:00 76 mm[Hg] [facility] Heart rate 2022-12-01 04:21:00 78 /min [facility] Body temperature 2022-12-01 04:21:00 36.72 Aicha [facility] Respiratory rate 2022-12-01 04:21:00 18 /min [facility] Body height 2022-12-01 04:21:00 160 cm [facility] Body weight 2022-12-01 04:21:00 92.987 kg [facility] BMI 2022-12-01 04:21:00 36.31 kg/m2 [facility] Oxygen saturation in Arterial blood by Pulse oximetry 2022-12-01 04:21:00 100 /min [facility] Systolic blood pressure 2022-11-16 15:33:00 105 mm[Hg] [facility] Diastolic blood pressure 2022-11-16 15:33:00 70 mm[Hg] [facility] Heart rate 2022-11-16 15:33:00 104 /min [facility] Body temperature 2022-11-16 15:33:00 36.17 Aicha [facility] Respiratory rate 2022-11-16 15:33:00 20 /min [facility] Body height 2022-11-16 15:33:00 160 cm [facility] Body weight 2022-11-16 15:33:00 99.882 kg [facility] BMI 2022-11-16 15:33:00 39.01 kg/m2 [facility] Systolic blood pressure 2022-11-11 19:02:00 120 mm[Hg] [facility] Diastolic blood pressure 2022-11-11 19:02:00 72 mm[Hg] [facility] Heart rate 2022-11-11 18:51:00 92 /min [facility] Body temperature 2022-11-11 18:51:00 36.78 Aicha [facility] Oxygen saturation in Arterial blood by Pulse oximetry 2022-11-11 18:51:00 98 /min [facility] Systolic blood pressure 2022-11-11 00:02:00 128 mm[Hg] [facility] Diastolic blood pressure 2022-11-11 00:02:00 88 mm[Hg] [facility] Heart rate 2022-11-11 00:02:00 75 /min [facility] Respiratory rate 2022-11-11 00:02:00 18 /min [facility] Oxygen saturation in Arterial blood by Pulse oximetry 2022-11-11 00:02:00 98 /min [facility] Body temperature 2022-11-10 21:50:00 37.22 Aicha [facility] Body height 2022-11-10 21:50:00 160 cm [facility] Body weight 2022-11-10 21:50:00 104.327 kg [facility] BMI 2022-11-10 21:50:00 40.74 kg/m2 [facility] Heart rate 2022-11-08 13:40:00 119 /min [facility] Systolic blood pressure 2022-11-08 13:28:00 145 mm[Hg] pt was in pain. nurse will recheck pulse [facility] Diastolic blood pressure 2022-11-08 13:28:00 79 mm[Hg] pt was in pain. nurse will recheck pulse [facility] Body temperature 2022-11-08 13:28:00 37 Aicha [facility] Respiratory rate 2022-11-08 13:28:00 20 /min [facility] Oxygen saturation in Arterial blood by Pulse oximetry 2022-11-08 13:28:00 97 /min [facility] Body weight 2022-11-06 20:30:00 110 kg [facility] BMI 2022-11-06 20:30:00 42.97 kg/m2 [facility] Systolic blood pressure 2022-11-07 09:00:00 121 mm[Hg] [facility] Diastolic blood pressure 2022-11-07 09:00:00 56 mm[Hg] [facility] Heart rate 2022-11-07 09:00:00 107 /min [facility] Respiratory rate 2022-11-07 09:00:00 18 /min [facility] Oxygen saturation in Arterial blood by Pulse oximetry 2022-11-07 09:00:00 98 /min [facility] Body temperature 2022-11-07 08:30:00 38.44 Aicha [facility] Body weight 2022-11-06 20:30:00 110 kg [facility] BMI 2022-11-06 20:30:00 42.97 kg/m2 [facility] Systolic blood pressure 2022-10-30 18:30:00 119 mm[Hg] [facility] Diastolic blood pressure 2022-10-30 18:30:00 84 mm[Hg] [facility] Heart rate 2022-10-30 18:30:00 88 /min [facility] Body temperature 2022-10-30 18:30:00 36.78 Aicha [facility] Respiratory rate 2022-10-30 18:30:00 18 /min [facility] Body height 2022-10-30 18:30:00 160 cm [facility] Body weight 2022-10-30 18:30:00 110 kg [facility] BMI 2022-10-30 18:30:00 42.97 kg/m2 [facility] Oxygen saturation in Arterial blood by Pulse oximetry 2022-10-30 18:30:00 99 /min [facility] Systolic blood pressure 2022-10-23 16:06:00 117 mm[Hg] [facility] Diastolic blood pressure 2022-10-23 16:06:00 70 mm[Hg] [facility] Heart rate 2022-10-23 16:06:00 99 /min [facility] Body temperature 2022-10-23 16:06:00 36.39 Aicha [facility] Respiratory rate 2022-10-23 16:06:00 20 /min [facility] Body height 2022-10-23 16:06:00 160 cm [facility] Body weight 2022-10-23 16:06:00 109.272 kg [facility] BMI 2022-10-23 16:06:00 42.67 kg/m2 [facility] Systolic blood pressure 2022-10-11 17:21:00 128 mm[Hg] [facility] Diastolic blood pressure 2022-10-11 17:21:00 69 mm[Hg] [facility] Heart rate 2022-10-11 17:21:00 107 /min [facility] Body temperature 2022-10-11 17:21:00 36.61 Aciha [facility] Respiratory rate 2022-10-11 17:21:00 16 /min [facility] Body height 2022-10-11 17:21:00 160 cm [facility] Body weight 2022-10-11 17:21:00 107.616 kg [facility] BMI 2022-10-11 17:21:00 42.03 kg/m2 [facility] Systolic blood pressure 2022-10-06 17:03:00 109 mm[Hg] [facility] Diastolic blood pressure 2022-10-06 17:03:00 68 mm[Hg] [facility] Heart rate 2022-10-06 17:03:00 100 /min [facility] Body temperature 2022-10-06 17:03:00 36.06 Aicha [facility] Respiratory rate 2022-10-06 17:03:00 18 /min [facility] Body height 2022-10-06 17:03:00 160 cm [facility] Body weight 2022-10-06 17:03:00 106.737 kg [facility] BMI 2022-10-06 17:03:00 41.68 kg/m2 [facility] Systolic blood pressure 2022-10-01 21:09:00 113 mm[Hg] [facility] Diastolic blood pressure 2022-10-01 21:09:00 68 mm[Hg] [facility] Heart rate 2022-10-01 21:09:00 98 /min [facility] Body temperature 2022-10-01 21:09:00 36.56 Aicha [facility] Respiratory rate 2022-10-01 21:09:00 16 /min [facility] Body height 2022-10-01 21:09:00 160 cm [facility] Body weight 2022-10-01 21:09:00 105.461 kg [facility] BMI 2022-10-01 21:09:00 41.19 kg/m2 [facility] Systolic blood pressure 2022-09-16 21:10:00 117 mm[Hg] [facility] Diastolic blood pressure 2022-09-16 21:10:00 66 mm[Hg] [facility] Heart rate 2022-09-16 21:10:00 98 /min [facility] Body temperature 2022-09-16 21:10:00 36.28 Aicha [facility] Respiratory rate 2022-09-16 21:10:00 18 /min [facility] Body height 2022-09-16 21:10:00 160 cm [facility] Body weight 2022-09-16 21:10:00 104.441 kg [facility] BMI 2022-09-16 21:10:00 40.79 kg/m2 [facility] Systolic blood pressure 2022-09-02 20:30:00 109 mm[Hg] [facility] Diastolic blood pressure 2022-09-02 20:30:00 70 mm[Hg] [facility] Heart rate 2022-09-02 20:30:00 106 /min [facility] Body temperature 2022-09-02 20:30:00 36.39 Aicha [facility] Respiratory rate 2022-09-02 20:30:00 17 /min [facility] Body height 2022-09-02 20:30:00 160 cm [facility] Body weight 2022-09-02 20:30:00 103.42 kg [facility] BMI 2022-09-02 20:30:00 40.39 kg/m2 [facility] Systolic blood pressure 2022-08-19 21:27:00 116 mm[Hg] [facility] Diastolic blood pressure 2022-08-19 21:27:00 61 mm[Hg] [facility] Heart rate 2022-08-19 21:27:00 100 /min [facility] Body temperature 2022-08-19 21:27:00 36.44 Aicha [facility] Respiratory rate 2022-08-19 21:27:00 18 /min [facility] Body weight 2022-08-19 21:27:00 103.511 kg [facility] BMI 2022-08-19 21:27:00 40.42 kg/m2 [facility] Heart Rate 2024-07-19 18:56:00 Haseeb Burch Respiratory Rate 2024-07-19 18:56:00 Haseeb Aftab Burch BP Systolic 2024-07-19 18:56:00 Haseeb Aftab Marcin BP Diastolic 2024-07-19 18:56:00 Haseeb Aftab Burch Weight Measured 2024-07-19 18:56:00 Haseeb Aftab Burch Height Measured 2024-07-19 18:56:00 Haseeb Burch Body Temperature 2024-07-19 18:56:00 Haseeb Burch BP Systolic 2023-12-20 17:45:00 107 mm[Hg] Haseeb Burch BP Diastolic 2023-12-20 17:45:00 70 mm[Hg] Haseeb Burch Weight Measured 2023-12-20 17:45:00 197.00 pounds Haseeb Burch Height Measured 2023-12-20 17:45:00 63.00 inches Haseeb Burch Body Temperature 2023-12-20 17:45:00 97.40 degrees Haseeb Burch Heart Rate 2023-12-20 17:45:00 85.00 /min Haseeb Burch Respiratory Rate 2023-12-20 17:45:00 18.00 /min Haseeb Burch BP Systolic 2023-11-22 15:45:00 109 mm[Hg] Haseeb Burch BP Diastolic 2023-11-22 15:45:00 75 mm[Hg] Haseeb Burch Weight Measured 2023-11-22 15:45:00 195.20 pounds Haseeb Burch Height Measured 2023-11-22 15:45:00 63.00 inches Haseeb Burch Body Temperature 2023-11-22 15:45:00 97.40 degrees Haseeb Burch Heart Rate 2023-11-22 15:45:00 98.00 /min Haseeb Burch Respiratory Rate 2023-11-22 15:45:00 Haseeb Burch Procedures Procedure Date / Time Performed Performing Clinician Source CBC WITH DIFF 2022-12-21 22:31:00 Yoly Mei [facility] CONSENT/REFUSAL FOR DIAGNOSIS AND TREATMENT 2022-12-19 22:38:00 Doctor Unassigned, [place] [facility] CONSENT/REFUSAL FOR DIAGNOSIS AND TREATMENT 2022-12-01 04:14:11 Doctor Unassigned, [place] [facility] URINALYSIS 2022-11-10 22:22:00 [facility] RAPID INFLUENZA A/B 2022-11-10 22:22:00 Kev Sanchez [facility] COVID-19 (ID NOW RAPID TESTING) 2022-11-10 22:22:00 Junior Sanchez [facility] CONSENT/REFUSAL FOR DIAGNOSIS AND TREATMENT 2022-11-10 21:39:22 Doctor Unassigned, [place] [facility] CBC WITH DIFF 2022-11-08 11:27:00 JenAntonio pearce [facility] CBC WITH DIFF 2022-11-08 11:27:00 JenAntonio pearce [facility] VENOUS CORD GAS 2022-11-07 07:15:00 [facility] 2022-11-07 07:15:00 [facility] 2022-11-07 06[facility]29[facility] 2022-11-07 06:29:00 Steve Jimenez [facility] CENTRAL NEURAXIAL BLOCK 2022-11-06 05:38:50 Jonathan Bedoya [facility] CBC WITH DIFF 2022-11-05 15:09:00 Veto Stubbs [facility] HEPATITIS B SURFACE ANTIGEN 2022-11-05 15:09:00 Elvia Stubbsshua [facility] HIV 1/2 AG-AB WITH REFLEX 2022-11-05 15:09:00 Veto Stubbs [facility] GALV ONLY - SYPHILIS IGG/IGM 2022-11-05 15:09:00 Elvia Stubbsshua [facility] CBC WITH DIFF 2022-11-05 15:09:00 Veto Stubbs [facility] HEPATITIS B SURFACE ANTIGEN 2022-11-05 15:09:00 Elvia Stubbsshua [facility] HIV 1/2 AG-AB WITH REFLEX 2022-11-05 15:09:00 Veto Stubbs [facility] GALV ONLY - SYPHILIS IGG/IGM 2022-11-05 15:09:00 Veto Stubbs [facility] HB ABO GROUPING 2022-11-05 15:07:00 Elvia Stubbsshua [facility] RHO (D) IMMUNE GLOBULIN 2022-11-05 15:07:00 Antonio Oneil [facility] HB ABO GROUPING 2022-11-05 15:07:00 Veto Stubbs [facility] RHO (D) IMMUNE GLOBULIN 2022-11-05 15:07:00 Antonio Oneil [facility] NOTICE OF PRIVACY PRACTICES 2022-10-30 18:16:50 Doctor Unassigned, [place] [facility] CONSENT/REFUSAL FOR DIAGNOSIS AND TREATMENT 2022-10-30 18:11:51 Doctor Unassigned, [place] [facility] POCT URINALYSIS 2022-10-23 00:00:00 Nataliia Dodson [facility] DME/SUPPLY JUSTIFICATION 2022-10-20 06:01:00 Doc tor Unassigned, [place] [facility] POCT URINALYSIS 2022-10-11 17:22:00 Nataliia Dodson [facility] POCT URINALYSIS 2022-10-06 17:04:00 Nataliia Dodson [facility] POCT URINALYSIS 2022-10-01 21:10:00 Nataliia Dodson [facility] POCT URINALYSIS 2022-09-16 21:13:00 Nataliia Dodson [facility] POCT URINALYSIS 2022-09-02 00:00:00 Nataliia Dodson [facility] HIV 1/2 AG-AB WITH REFLEX 2022-08-20 16:04:00 Nataliia Dodson [facility] GALV ONLY - SYPHILIS IGG/IGM 2022-08-20 16:04:00 Nataliia Dodson [facility] TDAP VACCINE, >11 YRS, IM 2022-08-19 21:20:21 Nataliia Dodson [facility] Encounters Start Date/Time End Date/Time Encounter Type Admission Type Attending Clinicians Care Facility Care Department Encounter ID Source 2024-07-19 00:00:00 2024-07-19 00:00:00 Outpatient Visit [facility] [id number] Haseeb Burch 2023-12-20 17:38:05 2023-12-20 17:38:05 Outpatient SFA [facility] [id number] Haseeb Burch 2023-11-22 15:40:53 2023-11-22 15:40:53 Outpatient SFA [facility] [id number] Haseeb Burch 2022-12-31 15:30:00 2022-12-31 16:18:52 Outpatient R NATALIIA DODSON [facility] [id number] [facility] 2022-12-31 15:30:00 2022-12-31 16:18:52 Office Visit Nataliia Dodson [facility] PATROL AGENT [facility] 1..840.114 350.1.13.10 4.2.7.2.686 [id number] [facility] 2022-12-31 00:00:00 2022-12-31 00:00:00 Patient Secure Msg Doctor Unassigned, [place] [facility] 1..840.114 350.1.13.10 4.2.7.2.686 [id number] [facility] 2022-12-21 15:45:00 2022-12-21 16:38:30 Outpatient R YOLY MEI [facility] [id number] [facility] 2022-12-21 15:45:00 2022-12-21 16:38:30 Office Visit Provider, Jesus-Rmchp Yoly Lama [facility] PATROL AGENT [facility] 1..840.114 350.1.13.10 4.2.7.2.686 [id number] [facility] 2022-12-19 16:43:00 2022-12-19 17:08:00 Emergency X PETER RODRIGUEZ [facility] ERT [id number] [facility] 2022-12-19 16:43:00 2022-12-19 17:08:00 Emergency Peter Rodriguez [facility] 1.840.114 350.1.13.10 4.2.7.2.686 [id number] [facility] 2022-12-10 15:45:00 2022-12-10 15:45:00 Outpatient YOLY AUSTIN [facility] [id number] [facility] 2022-12-07 16:00:00 2022-12-07 16:00:00 Outpatient YOLY AUSTIN [facility] [id number] [facility] 2022-11-30 22:24:00 2022-11-30 22:41:00 Emergency X JUAN PABLO COOLEYNABEEL [facility] ERT [id number] [facility] 2022-11-30 22:24:00 2022-11-30 22:41:00 Emergency Fidencio Cooley [facility] 1..114 350.1.13.10 4.2.7.2.686 [id number] [facility] 2022-11-30 14:00:00 2022-11-30 14:00:00 [id number] 2022-11-25 00:00:00 2022-11-25 00:00:00 Telephone Nataliia Dodson [facility] PATROL AGENT [facility] 1..114 350.1.13.10 4.2.7.2.686 [id number] [facility] 2022-11-16 09:30:00 2022-11-16 09:30:00 Nurse Visit Visit, [facility] Nurse Katrin Khalil Damilola C [facility] PATROL AGENT [facility] .840.114 350.1.13.10 4.2.7.2.686 [id number] [facility] 2022-11-16 09:30:00 2022-11-16 09:07:58 Outpatient R NATALIIA DODSON [facility] [id number] [facility] 2022-11-11 12:39:00 2022-11-11 14:15:00 Outpatient P BIANKA WAHL [facility] JERRELL [id number] [facility] 2022-11-11 12:39:00 2022-11-11 14:15:00 Hospital Encounter Isaac Suny [facility] Donatojadon [facility] 1.0.114 350.1.13.10 4.2.7.2.686 [id number] [facility] 2022-11-11 00:00:00 2022-11-11 00:00:00 Telephone Steve Jimenez [facility] 1..114 350.1.13.10 4.2.7.2.686 [id number] [facility] 2022-11-10 15:56:00 2022-11-10 18:18:00 Emergency X JUNIOR SANCHEZ [facility] ERT [id number] [facility] 2022-11-10 15:56:00 2022-11-10 18:18:00 Emergency Delroy Allen Phillip [facility] 1..114 350.1.13.10 4.2.7.2.686 [id number] [facility] 2022-11-05 07:55:00 2022-11-08 17:34:00 Inpatient P CONRAD[facility]Y [facility] [id number] [facility] 2022-11-05 07:55:00 2022-11-08 17:34:00 Hospital Encounter Rocky Conrad Haris [facility] 1..114 350.1.13.10 4.2.7.2.686 [id number] [facility] 2022-11-07 01:15:00 2022-11-07 03:00:00 Surgery Steve Jimenez [facility] 1..114 350.1.13.10 4.2.7.2.686 [id number] [facility] 2022-11-05 22:28:00 2022-11-05 22:28:00 Anesthesia Event Jennifer Fajardo Amber [facility] 1..114 350.1.13.10 4.2.7.2.686 [id number] [facility] 2022-10-30 12:23:00 2022-10-30 13:45:00 Outpatient X AUDREY HAYDEN [facility] [id number] [facility] [facility] 12:23:00 2022-10-30 13:45:00 Emergency AdAudrey murdock [facility] 1.84.114 350.1.13.10 4.2.7.2.686 [id number] [facility] 2022-10-28 15:45:00 2022-10-28 15:45:00 Outpatient YOLY AUSTIN [facility] [id number] [facility] 2022-10-23 10:15:00 2022-10-23 10:30:34 Outpatient ROSAMARIA HENDRICKSON [facility] [id number] [facility] 2022-10-23 10:15:00 2022-10-23 10:30:34 Routine Visit Provider, Jesus-Rmchp Rosamaria Carrera [facility] PATROL AGENT [facility]3] 1.84.114 350.1.13.10 4.2.7.2.686 [id number] 107 [id number] [facility] 2022-10-20 00:00:00 2022-10-20 00:00:00 Orders Only Doctor Unassigned, [facility] 1.840.114 350.1.13.10 4.2.7.2.686 [id number] [facility] 2022-10-12 13:15:00 2022-10-12 13:15:00 Outpatient R [facility] [id number] [facility] 2022-10-12 00:00:00 2022-10-12 00:00:00 Telephone Nataliia Dodson [facility] PATROL AGENT [facility] 1.840.114 350.1.13.10 4.2.7.2.686 [id number] [facility] 2022-10-11 11:00:00 2022-10-11 11:15:00 Routine Visit Nataliia Dodson [facility] PATROL AGENT [facility] 1.840.114 350.1.13.10 4.2.7.2.686 [id number] [facility] 2022-10-11 11:00:00 2022-10-11 11:00:00 Outpatient R NATALIIA DODSON [facility] [id number] [facility] 2022-10-07 14:00:00 2022-10-07 14:00:00 Outpatient YOLY AUSTIN [facility] [id number] [facility] 2022-10-06 10:45:00 2022-10-06 11:48:25 Outpatient YOLY AUSTIN [facility] [id number] [facility] 2022-10-06 10:45:00 2022-10-06 11:48:25 Routine Visit Provider, Yoly Manley [facility] PATROL AGENT [facility] 1..840.114 350.1.13.10 4.2.7.2.686 [id number] [facility] 2022-10-04 15:30:00 2022-10-04 15:30:00 Outpatient R NATALIIA DODSON [facility] [id number] [facility] 2022-10-01 14:45:00 2022-10-01 15:40:54 Outpatient R NATALIIA DODSON [facility] [id number] [facility] 2022-10-01 14:45:00 2022-10-01 15:40:54 Routine Visit Nataliia Dodson [facility] PATROL AGENT [facility] MATERNAL & CHILD HEALTH [facility] 1.2.840.114 350.1.13.10 4.2.7.2.686 [id number] 107 [id number] [facility] 2022-09-16 16:00:00 2022-09-16 16:15:00 Routine Visit ElidakwanNataliia [facility] PATROL AGENT [facility] 1..840.114 350.1.13.10 4.2.7.2.686 [id number] [facility] 2022-09-16 16:00:00 2022-09-16 16:00:00 Outpatient R NATALIIA DODSON [facility] [id number] [facility] 2022-09-02 15:30:00 2022-09-02 15:44:03 Outpatient R NATALIIA DODSON [facility] [id number] [facility] 2022-09-02 15:30:00 2022-09-02 15:44:03 Routine Visit Nataliia Dodson [facility] PATROL AGENT [facility] 1..840.114 350.1.13.10 4.2.7.2.686 [id number] 107 [id number] [facility] 2022-08-20 10:30:00 2022-08-20 11:08:03 Outpatient R NATALIIA DODSON [facility] [id number] [facility] 2022-08-20 10:30:00 2022-08-20 11:08:03 Hammer Setter Visit Lab, Ang-Rmchp Nataliia Dodson [facility] PATROL AGENT [facility] 1.0.114 350.1.13.10 4.2.7.2.686 [id number] [facility] 2022-08-19 16:00:00 2022-08-19 16:44:59 Outpatient R NATALIIA DODSON [facility] [id number] [facility] 2022-08-19 16:00:00 2022-08-19 16:44:59 Routine Visit Nataliia Dodson [facility] PATROL AGENT [facility] CHILD [facility] 1..114 350.1.13.10 4.2.7.2.686 [id number] 107 [id number] [facility] 2022-08-06 15:15:00 2022-08-06 15:15:00 Outpatient P [facility] [id number] [facility] 2022-08-06 00:00:00 2022-08-06 00:00:00 Telephone Nataliia Dodson [facility] PATROL AGENT [facility] CHILD [facility] 1..114 350.1.13.10 4.2.7.2.686 [id number] 107 [id number] [facility] 2022-08-06 00:00:00 2022-08-06 00:00:00 Telephone Nataliia Dodson [facility] PATROL AGENT [facility] CHILD [facility] 1..114 350.1.13.10 4.2.7.2.686 [id number] [facility] 2022-08-05 13:00:00 2022-08-05 13:21:54 Routine Visit Nataliia Dodson [facility] PATROL AGENT [facility] 1.0.114 350.1.13.10 4.2.7.2.686 [id number] 107 [id number] [facility] 2022-08-05 13:00:00 2022-08-05 13:21:54 Outpatient R NATALIIA DODSON [facility] [id number] [facility] 2022-08-05 13:00:00 2022-08-05 13:21:54 Outpatient R WALKERNATALIIA [facility] [id number] [facility] 2022-08-05 13:00:00 2022-08-05 13:00:00 Outpatient R WALKER NATALIIA [facility] [id number] [facility] 2022-07-20 00:00:00 2022-07-20 00:00:00 Abstract Nataliia Dodson [facility] PATROL AGENT [facility] MATERNAL & CHILD [facility] 1..840.114 350.1.13.10 4.2.7.2.686 [id number] 107 [id number] [facility] 2022-07-19 13:00:00 2022-07-19 13:31:46 Hammer Setter Visit Ultrasound, [facility] Leola Combs [facility] PATROL AGENT [facility] 1..840.114 350.1.13.10 4.2.7.2.686 [id number] [facility] 2022-07-19 13:00:00 2022-07-19 13:00:00 Outpatient P [facility] [id number] [facility] 2022-07-19 13:00:00 2022-07-19 13:00:00 Outpatient P LEOLA COMBS [facility] [id number] [facility] 2022-07-19 00:00:00 2022-07-19 00:00:00 Telephone Nataliia Dodson [facility] PATROL AGENT [facility] 1..840.114 350.1.13.10 4.2.7.2.686 [id number] 107 [id number] [facility] 2022-07-05 15:30:00 2022-07-05 15:45:00 Routine Visit Nataliia Dodson [facility] PATROL AGENT [facility] 1.0.114 350.1.13.10 4.2.7.2.686 [id number] [facility] 2022-07-05 15:30:00 2022-07-05 15:30:00 Outpatient R NATALIIA DODSON [facility] [id number] [facility] 2022-07-05 15:30:00 2022-07-05 15:30:00 Outpatient R NATALIIA DODSON [facility] [id number] [facility] 2022-06-25 00:00:00 2022-06-25 00:00:00 Orders Only Doctor Unassigned, [facility] 1.0.114 350.1.13.10 4.2.7.2.686 [id number] [facility] 2022-06-21 00:00:00 2022-06-21 00:00:00 Telephone Nataliia Dodson [facility] PATROL AGENT [facility] 1.0.114 350.1.13.10 4.2.7.2.686 [id number] [facility] 2022-06-18 14:45:00 2022-06-18 16:00:00 Hammer Setter Visit Ultrasound, Leatha Wall [facility] PATROL AGENT [facility] 1..114 350.1.13.10 4.2.7.2.686 [id number] [facility] 2022-06-18 14:45:00 2022-06-18 14:45:00 Outpatient P [facility] [id number] [facility] 2022-06-18 14:45:00 2022-06-18 14:45:00 Outpatient Jo Ann LEATHA MICHELE [facility] [id number] [facility] 2022-06-18 00:00:00 2022-06-18 00:00:00 Abstract Nataliia Dodson [facility] PATROL AGENT [facility] 1.2.840.114 350.1.13.10 4.2.7.2.686 [id number] [facility] 2022-06-11 00:00:00 2022-06-11 00:00:00 Telephone Miller Jo Annallan Yung [facility] PATROL AGENT [facility] 1.2.840.114 350.1.13.10 4.2.7.2.686 [id number] [facility] 2022-06-07 12:45:00 2022-06-07 13:00:00 Routine Visit Nataliia Dodson [facility] PATROL AGENT [facility] CHILD [facility] 1..840.114 350.1.13.10 4.2.7.2.686 [id number] [facility] 2022-06-07 12:45:00 2022-06-07 12:45:00 Outpatient R NATALIIA DODSON [facility] [id number] [facility] 2022-06-03 16:00:00 2022-06-03 16:00:00 Outpatient R NATALIIA DODSON [facility] [id number] [facility] 2022-05-14 16:00:00 2022-05-14 16:35:28 Outpatient R NATALIIA DODSON [facility] [id number] [facility] 2022-05-14 16:00:00 2022-05-14 16:35:28 Routine Visit Nataliia Dodson [facility] PATROL AGENT [facility] 1.2.840.114 350.1.13.10 4.2.7.2.686 [id number] [facility] 2022-05-14 00:00:00 2022-05-14 00:00:00 Orders Only Doctor Unassigned, [facility] 1.2.840.114 350.1.13.10 4.2.7.2.686 [id number] [id number] [facility] 2022-05-10 00:00:00 2022-05-10 00:00:00 Patient Secure Msg Nataliia Dodson [facility] PATROL AGENT [facility] MATERNAL & CHILD HEALTH [facility] 1.2.840.114 350.1.13.10 4.2.7.2.686 [id number] 107 [id number] [facility] 2022-04-30 00:00:00 2022-04-30 00:00:00 Patient Secure Msg Doctor Unassigned, [facility] 1.2.840.114 350.1.13.10 4.2.7.2.686 [id number] [facility] 2022-04-30 00:00:00 2022-04-30 00:00:00 Patient Secure Msg Doctor Unassigned, [facility] 1.2.840.114 350.1.13.10 4.2.7.2.686 [id number] [facility] 2022-04-30 00:00:00 2022-04-30 00:00:00 Nurse Triage Cecile Smith [facility] 1.2.840.114 350.1.13.10 4.2.7.2.686 [id number] [id number] [facility] 2022-04-30 00:00:00 2022-04-30 00:00:00 Nurse Triage Debra Graves [facility] 1.2.840.114 350.1.13.10 4.2.7.2.686 [id number] [facility] 2022-04-29 00:00:00 2022-04-29 00:00:00 Telephone Nataliia Dodson [facility] PATROL AGENT [facility] MATERNAL & CHILD [facility] 1.2.840.114 350.1.13.10 4.2.7.2.686 [id number] 107 [id number] [facility] 2022-04-28 00:00:00 2022-04-28 00:00:00 Nurse Triage Cecile Smith [facility] 1.2.840.114 350.1.13.10 4.2.7.2.686 [id number] [id number] [facility] 2022-04-20 00:00:00 2022-04-20 00:00:00 Patient Secure Msg Nataliia Dodson [facility] PATROL AGENT [facility] 1.2.840.114 350.1.13.10 4.2.7.2.686 [id number] 107 [id number] [facility] 2022-04-16 15:30:00 2022-04-16 15:45:00 Routine Visit Natlaiia Dodson [facility] PATROL AGENT [facility] 1.2.840.114 350.1.13.10 4.2.7.2.686 [id number] 107 [id number] [facility] 2022-04-16 15:30:00 2022-04-16 15:30:00 Outpatient R NATALIIA DODSON [facility] [id number] [facility] 2022-04-14 00:00:00 2022-04-14 00:00:00 Abstract Nataliia Dodson [facility] PATROL AGENT [facility] 1.2.840.114 350.1.13.10 4.2.7.2.686 [id number] [facility] 2022-04-09 11:30:00 2022-04-09 12:00:00 Hammer Setter Visit Ultrasound, Janette Mckenzie [facility] PATROL AGENT [facility] CHILD [facility] 1.0.114 350.1.13.10 4.2.7.2.686 [id number] [facility] 2022-04-09 11:30:00 2022-04-09 11:30:00 Outpatient P [facility] [id number] [facility] 2022-04-09 11:30:00 2022-04-09 11:30:00 Outpatient P JANETTE THOMSON SHANNON [facility] [id number] [facility] 2022-03-26 00:00:00 2022-03-26 00:00:00 Patient Secure Msg Nataliia Dodson [facility] PATROL AGENT [facility] CHILD [facility] 1.840.114 350.1.13.10 4.2.7.2.686 [id number] 107 [id number] [facility] 2022-03-24 00:00:00 2022-03-24 00:00:00 Orders Only Doctor Unassigned, [facility] 1.0.114 350.1.13.10 4.2.7.2.686 [id number] [facility] 2022-03-23 00:00:00 2022-03-23 00:00:00 Patient Secure Msg Nataliia Dodson [facility] PATROL AGENT [facility] 1.0.114 350.1.13.10 4.2.7.2.686 [id number] 107 [id number] [facility] 2022-03-22 00:00:00 2022-03-22 00:00:00 Patient Secure Msg Nataliia Dodson [facility] PATROL AGENT [facility] 1.840.114 350.1.13.10 4.2.7.2.686 [id number] 107 [id number] [facility] 2022-03-19 15:00:00 2022-03-19 15:52:14 Outpatient R NATALIIA DODSON [facility] [id number] [facility] 2022-03-19 15:00:00 2022-03-19 15:52:14 Initial Visit eLoChase martejackelyn King [facility] PATROL AGENT [facility] MATERNAL & CHILD HEALTH [facility] 1..840.114 350.1.13.10 4.2.7.2.686 [id number] [facility] 2021-06-01 00:00:00 2021-06-01 00:00:00 Outpatient R AUDREY HAYDEN [facility] [id number] [facility] 2021-04-22 13:59:17 2021-04-22 15:04:16 Office Visit Audrey Hayden [facility] 1.2.840.114 350.1.13.10 4.2.7.2.686 [id number] [facility] 2021-04-22 14:00:00 2021-04-22 14:00:00 Outpatient R AUDREY HAYDEN [facility] [id number] [facility] Results Test Description Test Time Test Comments Results Result Co mments Source CULTURE, URINE 2023-12-23 09:26:56 SPECIMEN NUMBER: [id number] CULTURE, URINE SPECIMEN NUMBER: [id number] SOURCE: URINE REPORT STATUS: FINAL FINAL REPORT: 12/23/2023 10-50,000 CFU/ML UROGENITAL HAYDE PRESENT NO COMMON PATHOGENS UNLESS OTHERWISE INDICATED, ALL TESTING PERFORMED AT [facility] [address] [place] [address] MEDICAL RESEARCH ASSOCIATE: MYLENE WAHL M.D. CLIA NUMBER [id number] [facility] [place] [place]. [id number] Haseeb Forrester (D) IMMUNE [id number] 14:35:32* Test Item Value Reference Range Interpretation Comme nts RHIG CANDIDATE? (test code = 5055) No- see comment Patient is not a candidate for RhIg- Patient is Rh Positive.Performed at [facility] Laboratory Services - [facility] Blood [address] [place] [address] 99942Pppe Free: [phone] No. [id number] [facility] IMMUNE [id number] 14:35:32* Test Item Value Reference Range Interpretation Comme nts RHIG CANDIDATE? (test code = 5055) No- see comment Patient is not a candidate for RhIg- Patient is Rh Positive.Performed at [facility] Laboratory Services - [facility] Blood [place] [id number] Free: [phone] No. [id number] [facility] [id number] 07:34:36* Test Item Value Reference Range Interpretation Comme nts BASE EXCESS, CORD (test code = 7732638772) mEq/L AC PH, CORD (BEAKER) (test code = 5064993191) 7.18-7.38 PC02, CORD (test code = 4990343778) See_Comment [Automated messa ge] The system which generated this result transmitted reference range: 32 - 66 mmHg. The reference range was not used to interpret this result as normal/abnormal. PO2, CORD (test code = 2589095856) See_Comment L [Automated messa ge] The system which generated this result transmitted reference range: 10 - 30 mmHg. The reference range was not used to interpret this result as normal/abnormal. BICARBONATE, CORD (test code = 9186832740) See_Comment [Automated me ssage] The system which generated this result transmitted reference range: 17 - 27 mEq/L. The reference range was not used to interpret this result as normal/abnormal. Lab Interpretation (test code = 39632-8) Abnormal [facility] [id number] 07:34:36* Test Item Value Reference Range Interpretation Comme nts BASE EXCESS, CORD (test code = 8378088589) mEq/L AC PH, CORD (BEAKER) (test code = 8566907091) 7.18-7.38 PC02, CORD (test code = 1095698503) See_Comment [Automated messa ge] The system which generated this result transmitted reference range: 32 - 66 mmHg. The reference range was not used to interpret this result as normal/abnormal. PO2, CORD (test code = 1185768715) See_Comment L [Automated messa ge] The system which generated this result transmitted reference range: 10 - 30 mmHg. The reference range was not used to interpret this result as normal/abnormal. BICARBONATE, CORD (test code = 9689722521) See_Comment [Automated me ssage] The system which generated this result transmitted reference range: 17 - 27 mEq/L. The reference range was not used to interpret this result as normal/abnormal. Lab Interpretation (test code = 34035-3) Abnormal [facility] CORD [id number] 07:27:55* Test Item Value Reference Range Interpretation Comme nts VENOUS BASE EXCESS, CORD (test code = 9531223062) mEq/L VENOUS PH, CORD (test code = 3952973812) 7.25-7.45 VENOUS PC02, CORD (test code = 0311997362) See_Comment [Automated messa ge] The system which generated this result transmitted reference range: 27 - 49 mmHg. The reference range was not used to interpret this result as normal/abnormal. VENOUS PO2, CORD (test code = 2461452770) See_Comment [Automated me ssage] The system which generated this result transmitted reference range: 17 - 41 mmHg. The reference range was not used to interpret this result as normal/abnormal. VENOUS BICARBONATE, CORD (test code = 8810655908) See_Comment [Automated messa ge] The system which generated this result transmitted reference range: 12 - 29 mEq/L. The reference range was not used to interpret this result as normal/abnormal. [facility] CORD [id number] 07:27:55* Test Item Value Reference Range Interpretation Comme nts VENOUS BASE EXCESS, CORD (test code = 2576677994) mEq/L VENOUS PH, CORD (test code = 6283679177) 7.25-7.45 VENOUS PC02, CORD (test code = 7362508058) See_Comment [Automated messa ge] The system which generated this result transmitted reference range: 27 - 49 mmHg. The reference range was not used to interpret this result as normal/abnormal. VENOUS PO2, CORD (test code = 4061533234) See_Comment [Automated me ssage] The system which generated this result transmitted reference range: 17 - 41 mmHg. The reference range was not used to interpret this result as normal/abnormal. VENOUS BICARBONATE, CORD (test code = 5610649365) See_Comment [Automated messa ge] The system which generated this result transmitted reference range: 12 - 29 mEq/L. The reference range was not used to interpret this result as normal/abnormal. [facility] ONLY - SYPHILIS [id number] 16:01:05* Test Item Value Reference Range Interpretation Comme [facility] Syphilis IgG/IgM (test code = 61349-7) Non-reactive Non-reactive KELSI (test code = KELSI) Non-reactive - No serologic evidence of T. pallidum infection. Cannot exclude incubating or early syphilis. Submit a second specimen in 2-4 weeks if syphilis is clinically suspected. Equivocal - Further testing to follow. Reactive - Further testing to follow. Lab Interpretation (test code = 87432-9) Normal [facility] ONLY - SYPHILIS [id number] 16:01:05* Test Item Value Reference Range Interpretation Comme [facility] Syphilis IgG/IgM (test code = 41635-7) Non-reactive Non-reactive KELSI (test code = KELSI) Non-reactive - No serologic evidence of T. pallidum infection. Cannot exclude incubating or early syphilis. Submit a second specimen in 2-4 weeks if syphilis is clinically suspected. Equivocal - Further testing to follow. Reactive - Further testing to follow. Lab Interpretation (test code = 80875-3) Normal [facility] 1/2 AG-AB WITH [id number] 19:15:57* Test Item Value Reference Range Interpretation Comme [facility] HIV Semi-quantitative (test code = 76798-9) Negative Negative KELSI (test code = KELSI) Non-reactive for HIV-1 antigen and HIV-1/HIV-2 antibodies. ?No laboratory evidence of HIV infection. ?Repeat in 2-4 weeks if acute HIV infection is suspected. [facility] 1/2 AG-AB WITH [id number] 19:15:57* Test Item Value Reference Range Interpretation Comme [facility] HIV Semi-quantitative (test code = 59924-9) Negative Negative KELSI (test code = KELSI) Non-reactive for HIV-1 antigen and HIV-1/HIV-2 antibodies. ?No laboratory evidence of HIV infection. ?Repeat in 2-4 weeks if acute HIV infection is suspected. [facility] Surface [id number] 16:51:38 * Test Item Value Reference Range Interpretation Comme nts HBsAg Semi-Quantitative (apolonia t code = 5195-3) Negative Negative [facility] [id number] 16:51:38 * Test Item Value Reference Range Interpretation Comme nts HBsAg Semi-Quantitative (apol[place] t code = 5195-3) Negative Negative [facility] and Screen - ONCE [id number] 16:13:38 * Test Item Value Reference Range Interpretation Comme nts ABO & RH (test code = 20) A POSITIVE Performed at [facility] [address] Free: [phone] No. [id number] IAT (test code = 1185) Negative Performed at [address] Free: [phone] No. [id number] [facility] and Screen - ONCE [id number] 16:13:38 * Test Item Value Reference Range Interpretation Comme nts ABO & RH (test code = 20) A POSITIVE Performed at [facility] [address] Free: [phone] No. [id number] IAT (test code = 1185) Negative Performed at [facility] [address] Free: [phone] No. [id number] [employer] [facility] [id number] 15:38:33* Test Item Value Reference Range Interpretation Comme nts WBC (test code = 6690-2) See_Comment [Automated messa ge] The system which generated this result transmitted reference range: 4.30 - 11.10 10*3/?L. The reference range was not used to interpret this result as normal/abnormal. RBC (test code = 789-8) See_Comment [Automated messa ge] The system which generated this result transmitted reference range: 3.93 - 5.25 10*6/?L. The reference range was not used to interpret this result as normal/abnormal. HGB (test code = 718-7) 12.2 g/dL 11.6-15.0 HCT (test code = 4544-3) 36.2 % 35.7-45.2 MCV (test code = 787-2) 80.3 fL 80.6-95.5 L MCH (test code = 785-6) 27.1 pg 25.9-32.8 MCHC (test code = 786-4) 33.7 g/dL 31.6-35.1 RDW-SD (test code = 78460-9) 45.7 fL 39.0-49.9 RDW-CV (test code = 788-0) 16.0 % 12.0-15.5 H PLT (test code = 777-3) See_Comment [Automated [employer]] The system which generated this result transmitted reference range: 166 - 358 10*3/?L. The reference range was not used to interpret this result as normal/abnormal. MPV (test code = 32064-1) 10.8 fL 9.5-12.9 NRBC/100 WBC (test code = 0906639011) See_Comment [Automated Khush ssage] The system which generated this result transmitted reference range: 0.0 - 10.0 /100 WBCs. The reference range was not used to interpret this result as normal/abnormal. NRBC x10^3 (test code = 6674654593) See_Comment [Automated [employer]] The system which generated this result transmitted reference range: 10*3/?L. The reference range was not used to interpret this result as normal/abnormal. GRAN MAT (NEUT) % (test code = 770-8) 74.6 % IMM GRAN % (test code = 8717316602) 0.60 % LYMPH % (test code = 736-9) 18.6 % MONO % (test code = 5905-5) 5.5 % EOS % (test code = 713-8) 0.5 % BASO % (test code = 706-2) 0.2 % GRAN MAT x10^3(ANC) (test code = 1681257232) 7.23 10*3/uL 1.88-7.09 H IMM GRAN x10^3 (test code = 6562908408) 0.06 10*3/uL 0.00-0.06 LYMPH x10^3 (test code = 731-0) 1.80 10*3/uL 1.32-3.29 MONO x10^3 (test code = 742-7) 0.53 10*3/uL 0.33-0.92 EOS x10^3 (test code = 711-2) 0.05 10*3/uL 0.03-0.39 BASO x10^3 (test code = 704-7) 0.01-0.07 Lab Interpretation (test code = 98107-4) Abnormal [facility] with [id number] 15:38:33* Test Item Value Reference Range Interpretation Comme nts WBC (test code = 6690-2) See_Comment [Automated [employer]] The system which generated this result transmitted reference range: 4.30 - 11.10 10*3/?L. The reference range was not used to interpret this result as normal/abnormal. RBC (test code = 789-8) See_Comment [Automated [employer]] The system which generated this result transmitted reference range: 3.93 - 5.25 10*6/?L. The reference range was not used to interpret this result as normal/abnormal. HGB (test code = 718-7) 12.2 g/dL 11.6-15.0 HCT (test code = 4544-3) 36.2 % 35.7-45.2 MCV (test code = 787-2) 80.3 fL 80.6-95.5 L MCH (test code = 785-6) 27.1 pg 25.9-32.8 MCHC (test code = 786-4) 33.7 g/dL 31.6-35.1 RDW-SD (test code = 81983-5) 45.7 fL 39.0-49.9 RDW-CV (test code = 788-0) 16.0 % 12.0-15.5 H PLT (test code = 777-3) See_Comment [Automated [employer]] The system which generated this result transmitted reference range: 166 - 358 10*3/?L. The reference range was not used to interpret this result as normal/abnormal. MPV (test code = 97154-3) 10.8 fL 9.5-12.9 NRBC/100 WBC (test code = 2358051378) See_Comment [Automated me ssage] The system which generated this result transmitted reference range: 0.0 - 10.0 /100 WBCs. The reference range was not used to interpret this result as normal/abnormal. NRBC x10^3 (test code = 0598058587) See_Comment [Automated messa ge] The system which generated this result transmitted reference range: 10*3/?L. The reference range was not used to interpret this result as normal/abnormal. GRAN MAT (NEUT) % (test code = 770-8) 74.6 % IMM GRAN % (test code = 6670052676) 0.60 % LYMPH % (test code = 736-9) 18.6 % MONO % (test code = 5905-5) 5.5 % EOS % (test code = 713-8) 0.5 % BASO % (test code = 706-2) 0.2 % GRAN MAT x10^3(ANC) (test code = 5147578949) 7.23 10*3/uL 1.88-7.09 H IMM GRAN x10^3 (test code = 9363990385) 0.06 10*3/uL 0.00-0.06 LYMPH x10^3 (test code = 731-0) 1.80 10*3/uL 1.32-3.29 MONO x10^3 (test code = 742-7) 0.53 10*3/uL 0.33-0.92 EOS x10^3 (test code = 711-2) 0.05 10*3/uL 0.03-0.39 BASO x10^3 (test code = 704-7) 0.01-0.07 Lab Interpretation (test code = 00060-9) Abnormal [facility] URINALYSIS W SPECIFIC [id number] 16:07:00* Test Item Value Reference Range Interpretation Comme nts POCT U SP GRAV (test code = 3255) . 1.005-1.025 POCT PH U (test code = 3254) . 5-8 POCT U LEUK EST (test code = 3263) . Negative - Negative POCT U NIT (test code = 3262) . Negative - Negati ve POCT U PROT (test code = 3259) trace Negative - Negat shady POCT U GLU (test code = 3256) negative Negative - Negati ve POCT U KETONE (test code = 3258) . Negative - Neg ative POCT U UROBILI (test code = 3260) . 0.2-1 POCT U BILI (test code = 3261) . Negative - Negat shady POCT U BLD (test code = 3257) . Negative - Negati ve POCT U COLOR (test code = 3266) . POCT U APPEAR (test code = 3267) . [facility] URINALYSIS W SPECIFIC [id number] 17:23:00* Test Item Value Reference Range Interpretation Comme nts POCT U SP GRAV (test code = 3255) . 1.005-1.025 POCT PH U (test code = 3254) . 5-8 POCT U LEUK EST (test code = 3263) . Negative - N egative POCT U NIT (test code = 3262) . Negative - Negati ve POCT U PROT (test code = 3259) Trace Negative - Negat shady POCT U GLU (test code = 3256) Neg Negative - Negati ve POCT U KETONE (test code = 3258) . Negative - Neg ative POCT U UROBILI (test code = 3260) . 0.2-1 POCT U BILI (test code = 3261) . Negative - Negat shady POCT U BLD (test code = 3257) . Negative - Negati ve POCT U COLOR (test code = 3266) . POCT U APPEAR (test code = 3267) .. [facility] URINALYSIS W SPECIFIC [id number] 17:04:00* Test Item Value Reference Range Interpretation Comme nts POCT U SP GRAV (test code = 3255) . 1.005-1.025 POCT PH U (test code = 3254) . 5-8 POCT U LEUK EST (test code = 3263) . Negative - N egative POCT U NIT (test code = 3262) . Negative - Negati ve POCT U PROT (test code = 3259) Trace Negative - Negat shady POCT U GLU (test code = 3256) Neg Negative - Negati ve POCT U KETONE (test code = 3258) . Negative - Neg ative POCT U UROBILI (test code = 3260) . 0.2-1 POCT U BILI (test code = 3261) . Negative - Negat shady POCT U BLD (test code = 3257) . Negative - Negati ve POCT U COLOR (test code = 3266) . POCT U APPEAR (test code = 3267) . [facility] URINALYSIS W SPECIFIC [id number] 17:04:00* Test Item Value Reference Range Interpretation Comme nts POCT U SP GRAV (test code = 3255) . 1.005-1.025 POCT PH U (test code = 3254) . 5-8 POCT U LEUK EST (test code = 3263) . Negative - N egative POCT U NIT (test code = 3262) . Negative - Negati ve POCT U PROT (test code = 3259) Trace Negative - Negat shady POCT U GLU (test code = 3256) Neg Negative - Negati ve POCT U KETONE (test code = 3258) . Negative - Neg ative POCT U UROBILI (test code = 3260) . 0.2-1 POCT U BILI (test code = 3261) . Negative - Negat shady POCT U BLD (test code = 3257) . Negative - Negati ve POCT U COLOR (test code = 3266) . POCT U APPEAR (test code = 3267) . [facility] URINALYSIS W SPECIFIC [id number] 21:10:00* Test Item Value Reference Range Interpretation Comme nts POCT U SP GRAV (test code = 3255) . 1.005-1.025 POCT PH U (test code = 3254) . 5-8 POCT U LEUK EST (test code = 3263) . Negative - N egative POCT U NIT (test code = 3262) . Negative - Negati ve POCT U PROT (test code = 3259) Trace Negative - Negat shady POCT U GLU (test code = 3256) Neg Negative - Negati ve POCT U KETONE (test code = 3258) . Negative - Neg ative POCT U UROBILI (test code = 3260) . 0.2-1 POCT U BILI (test code = 3261) . Negative - Negat shady POCT U BLD (test code = 3257) . Negative - Negati ve POCT U COLOR (test code = 3266) . POCT U APPEAR (test code = 3267) [facility] URINALYSIS W SPECIFIC [id number] 21:10:00* Test Item Value Reference Range Interpretation Comme nts POCT U SP GRAV (test code = 3255) . 1.005-1.025 POCT PH U (test code = 3254) . 5-8 POCT U LEUK EST (test code = 3263) . Negative - N egative POCT U NIT (test code = 3262) . Negative - Negati ve POCT U PROT (test code = 3259) Trace Negative - Negat shady POCT U GLU (test code = 3256) Neg Negative - Negati ve POCT U KETONE (test code = 3258) . Negative - Neg ative POCT U UROBILI (test code = 3260) . 0.2-1 POCT U BILI (test code = 3261) . Negative - Negat shady POCT U BLD (test code = 3257) . Negative - Negati ve POCT U COLOR (test code = 3266) . POCT U APPEAR (test code = 3267) [facility] URINALYSIS W SPECIFIC [id number] 21:13:00* Test Item Value Reference Range Interpretation Comme nts POCT U SP GRAV (test code = 3255) . 1.005-1.025 POCT PH U (test code = 3254) . 5-8 POCT U LEUK EST (test code = 3263) . Negative - N egative POCT U NIT (test code = 3262) . Negative - Negati ve POCT U PROT (test code = 3259) Trace Negative - Negat shady POCT U GLU (test code = 3256) Neg Negative - Negati ve POCT U KETONE (test code = 3258) . Negative - Neg ative POCT U UROBILI (test code = 3260) . 0.2-1 POCT U BILI (test code = 3261) . Negative - Negat shady POCT U BLD (test code = 3257) . Negative - Negati ve POCT U COLOR (test code = 3266) POCT U APPEAR (test code = 3267) [facility] [id number] 20:34:00* Test Item Value Reference Range Interpretation Comme nts POCT U SP GRAV (test code = 3255) . 1.005-1.025 POCT PH U (test code = 3254) . 5-8 POCT U LEUK EST (test code = 3263) . Negative - Negative POCT U NIT (test code = 3262) . Negative - Negati ve POCT U PROT (test code = 3259) negative Negative - Negat shady POCT U GLU (test code = 3256) normal Negative - Negati ve POCT U KETONE (test code = 3258) . Negative - Neg ative POCT U UROBILI (test code = 3260) . 0.2-1 POCT U BILI (test code = 3261) . Negative - Negat shady POCT U BLD (test code = 3257) . Negative - Negati ve POCT U COLOR (test code = 3266) yellow POCT U APPEAR (test code = 3267) clear [facility] ONLY - SYPHILIS [id number] 16:13:45* Test Item Value Reference Range Interpretation Comme [facility] Syphilis IgG/IgM (test code = 82911-3) Non-reactive Non-reactive KELSI (test code = KELSI) Non-reactive - No serologic evidence of T. pallidum infection. Cannot exclude incubating or early syphilis. Submit a second specimen in 2-4 weeks if syphilis is clinically suspected. Equivocal - Further testing to follow. Reactive - Further testing to follow. Lab Interpretation (test code = 04226-7) Normal [facility] 1/2 AG-AB WITH [id number] 05:55:09* Test Item Value Reference Range Interpretation Comme [facility] HIV Semi-quantitative (test code = 69484-2) Negative Negative KELSI (test code = KELSI) Non-reactive for HIV-1 antigen and HIV-1/HIV-2 antibodies. ?No laboratory evidence of HIV infection. ?Repeat in 2-4 weeks if acute HIV infection is suspected. [facility] [place] Notes Date/Time Note Provider Source Haseeb Burch [facility]
--- NOTE | 2024-07-28 20:00 | EDPHYS ---
Physician Documentation [facility] Name: Neva Reyes Age: 24 yrs Sex: Female : 2000 Arrival Date: 07/28/2024 Time: 19:06 Bed IW4 Private MD: ED Physician Darin Fountain HPI: 07/28 20:03 This 24 yrs old Female presents to ER via Ambulatory with complaints of Bloody sb4 Stools - x2yrs. 20:04 Patient reports intermittent rectal bleeding for 3 years now. She states she came in sb4 today because she was feeling nauseated yesterday. She denies any chance of , just ended her cycle yesterday. States that she sometimes has to strain on the toilet and has pain and then has bright red blood on the toilet paper and small amounts in the toilet. States that she has had a proctoscopy before and was told she had hemorrhoids. She does not take any stool softeners or any sitz bath's. Denies any hematemesis or melena. 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 - Infectious Disease History:: Denies. - Social history:: Smoking status: Patient denies any tobacco usage or history of. Patient/guardian denies using alcohol. ROS: 20:04 Constitutional: Negative for fever, chills, and weight loss, sb4 20:04 Abdomen/GI: Positive for rectal pain, rectal bleeding, 20:04 All other systems are negative, Exam: 20:04 Constitutional: This is a well developed, well nourished patient who is awake, alert, sb4 and in no acute distress. Head/Face: Normocephalic, atraumatic. Eyes: Extra-ocular motions intact. Periorbital areas with no swelling, redness, or edema. ENT: Mucous membranes moist. Skin: Warm, dry with normal turgor. Normal color with no rashes, no lesions, and no evidence of cellulitis. 20:04 Abdomen/GI: Rectal exam: the exam is deferred, because of patient request, Vital Signs: 19:48 BP 122 / 74; Pulse 75; Resp 20; Temp 98.7(O); Pulse Ox 98% on R/A; Weight 86.18 kg; tm6 Height 5 ft. 3 in. ; Pain 0/10; 19:48 Body Mass Index 33.66 (86.18 kg, 160.02 cm) tm6 19:48 Pain Scale: Adult tm6 MDM: 19:24 Patient medically screened. sb4 20:05 Data reviewed: vital signs, nurses notes, and as a result, I will discharge patient. sb4 Counseling: I had a detailed discussion with the patient and/or guardian regarding the historical points, exam findings, and any diagnostic results supporting the discharge/admit diagnosis, the need for outpatient follow up, a correctional classification counselor, to return to the emergency department if symptoms worsen or persist or if there are any questions or concerns that arise at home. Administered Medications: No medications were administered Disposition: 07/29 01:19 Co-signature as Attending Physician, Darin Fountain MD I reviewed the patient's care rn provided by the Advanced Practice Provider and agree with the diagnosis and treatment plan. Disposition Summary: 07/28/24 20:00 Discharge Ordered Notes: Location: Home sb4 Problem: an ongoing problem sb4 Symptoms: are unchanged sb4 Condition: Stable sb4 Diagnosis - Other hemorrhoids sb4 Followup: sb4 - With: Edmar Ratliff MD - When: As needed - Reason: Further diagnostic work-up, Recheck today's complaints, Re-evaluation by your physician Discharge Instructions: - Discharge Summary Sheet sb4 - High-Fiber Eating Plan sb4 - Hemorrhoids sb4 - How to Take a Sitz Bath sb4 Forms: - Patient Portal Instructions sb4 - Leadership Thank You Letter sb4 Prescriptions: - Colace 100 mg Oral Tablet - take 1 tablet ORAL route every 12 hours; 14 tablet; Refills: 0, Product sb4 Selection Permitted - Zofran 4 mg Oral Tablet - take 1 tablet ORAL route every 12 hours As needed; 20 tablet; Refills: 0, sb4 Product Selection Permitted Signatures: Darin Fountain MD MD rn Brown, Sophia, PA-C PA-C sb4 Jasen Fox RN RN 6
--- NOTE | 2024-07-28 20:00 | ER ---
Nurse's Notes [facility] Name: Neva Reyes Age: 24 yrs Sex: Female : 2000 Arrival Date: 07/28/2024 Time: 19:06 Bed IW4 Private MD: Diagnosis: Other hemorrhoids Presentation: 07/28 19:48 Chief complaint: Patient states: bright red blood in stools x2 days, but comes and goes tm6 for 2 years. No pain. Nausea and vomiting x1. Coronavirus screen: Vaccine status: Patient reports being unvaccinated. Ebola Screen: Patient negative for fever greater than or equal to 101.5 degrees Fahrenheit, and additional compatible Ebola Virus Disease symptoms Patient denies exposure to infectious person. Patient denies travel to an Ebola-affected area in the 21 days before illness onset. No symptoms or risks identified at this time. Initial Sepsis Screen: Does the patient meet any 2 criteria? No. Patient's initial sepsis screen is negative. Does the patient have a suspected source of infection? No. Patient's initial sepsis screen is negative. Risk Assessment: Do you want to hurt yourself or someone else? Patient reports no desire to harm self or others. Onset of symptoms was July 27, 2024. 19:48 Method Of Arrival: Ambulatory tm6 19:48 Acuity: HILDA 3 tm6 Triage Assessment: 19:50 General: Appears in no apparent distress. Behavior is calm, cooperative. Pain: Denies tm6 pain. EENT: No signs and/or symptoms were reported regarding the EENT system. Neuro: Level of Consciousness is awake, alert, obeys commands. Cardiovascular: Patient's skin is warm and dry. Respiratory: Airway is patent Respiratory effort is even, unlabored, Respiratory pattern is regular, symmetrical. GI: Abdomen is round Abd is soft and non tender Reports bloody stool. : No signs and/or symptoms were reported regarding the genitourinary system. Derm: No signs and/or symptoms reported regarding the dermatologic system. Musculoskeletal: No signs and/or symptoms reported regarding the musculoskeletal system. 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 - Infectious Disease History:: Denies. - Social history:: Smoking status: Patient denies any tobacco usage or history of. Patient/guardian denies using alcohol. Screenin:04 [facility] ED Fall Risk Assessment (Adult) History of falling in the last 3 months, tm6 including since admission No falls in past 3 months (0 pts) Confusion or Disorientation No (0 pts) Intoxicated or Sedated No (0 pts) Impaired Gait No (0 pts) Mobility Assist Device Used No (0 pt) Altered Elimination No (0 pt) Score/Fall Risk Level 0 - 2 = Low Risk Oriented to surroundings, Maintained a safe environment, Educated pt \T\ family on fall prevention, incl call for assistance when getting out of bed. Abuse screen: Denies threats or abuse. Denies injuries from another. Nutritional screening: No deficits noted. Tuberculosis screening: No symptoms or risk factors identified. Assessment: 20:04 Reassessment: see triage assessment. tm6 Vital Signs: 19:48 BP 122 / 74; Pulse 75; Resp 20; Temp 98.7(O); Pulse Ox 98% on R/A; Weight 86.18 kg; tm6 Height 5 ft. 3 in. ; Pain 0/10; 19:48 Body Mass Index 33.66 (86.18 kg, 160.02 cm) tm6 19:48 Pain Scale: Adult tm6 ED Course: 19:08 Patient arrived in ED. ra3 19:16 Mireya Bob PA-C is [facility]. sb4 19:16 Darin Fountain MD is Attending Physician. sb4 19:50 Triage completed. tm6 19:50 Arm band placed on right wrist. tm6 19:59 Edmar Ratliff MD is Referral Physician. sb4 20:04 Patient has correct armband on for positive identification. Provided Education on: tm6 prescription medications. 20:04 No provider procedures requiring assistance completed. Patient did not have IV access tm6 during this emergency room visit. Administered Medications: No medications were administered Medication: 20:04 VIS not applicable for this client. tm6 Outcome: 20:00 Discharge ordered by . sb4 20:04 Discharged to home ambulatory, tm6 20:04 Condition: stable 20:04 Discharge instructions given to patient, Instructed on discharge instructions, follow up and referral plans. Demonstrated understanding of instructions, follow-up care, medications, Prescriptions given X 2, 20:05 Patient left the ED. tm6 Signatures: Mireya Bob PA-C PA-C sb4 Jasen Fox RN RN tm6 Juliette Zacarias ra3
[2024-07-28 20:11] VITALS: BP 122/74; TEMP 98.7; O2SAT 98
== END 2024-07-28 20:05 | disposition home or self-care (01) ==
LOC: ER 19:06
DX: K64.8 Other hemorrhoids (principal)
CPT/HCPCS: 99283

== ENCOUNTER 2025-02-16 12:23 | Emergency (ER) | payer OTHER ==
--- OUTSIDE RECORDS SUMMARY | 2025-02-16 12:28 | XMS REPORT | Continuity of Care Document ---
Author Name Unknown Address [address] [facility] [address] [place] [address] [facility] [place] Address [address] [facility] 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 Name Role Phone Celina Thompson Primary Care Physician NATALIIA DODSON Attending Clinician Unavail able Nataliia Corey Attending Clinician + Doctor Unassigned, [place] Attending Clinician U YLOY Jaimes Attending Clinician Unavaila [facility] Provider, Etta Temp Attending Clinician Donna Yoly Monroe CNM Attending Clinician [phone] PETER RODRIGUEZ Attending Clinician Unavailable Peter Vargas Attending Clinician [phone] FIDENCIO COOLEY Attending Clinician Unavailable Fidencio Cooley MD Attending Clinician [phone] [facility]ending [facility]ician Unava ilKatrin Ho Attending Clinici an BIANKA WAHL Attending Clinician Unav Bianka Tse MD Attending Clinician + Steve Jimenez MD Attending Clinician [phone] JUNIOR SANCHEZ Attending Clinician Unavailable Delroy Steele Attending Clinician +- [phone] Singer ARCEO Junior Attending Clinician +[phone] ROCKY CONRAD Attending Clinician Unavailluke Conrad MD, Rocky Carballo Attending Clinician + [phone] Tana DUKE, Jennifer Attending Clinician + [phone] Amber Conde MD Attending Clinician +[phone] SHABANA SANCHEZ Attending Clinician Unavailable AUDREY HAYDEN Attending Clinician Unavailable Audrey Hayden MD Attending Clinician [phone] ROSAMARIA SOSA Attending Clinician Unavailable Daisha REECE, Rosamaria Attending Clinician [phone] [facility] Unavailable Cristal, Misty Attending Clinician Unavaila jacqueline Yap MD, Leola Attending Clinician + LEOLA GRECO Attending Clinician Unav Leatha Lund MD Attending Clinician [phone] LEATHA MICHELE Attending Clinician Unavailable Paul CHRISTOPHER, Majora R Attending Clinician + [phone] Cecile Smith RN Attending Clinician Unavailable Ely JAIN, Debra Attending Clinician UnavailJanette Garcia MD Attending Clinician [phone] JANETTE THOMSON Attending Clinician Unavailable JANETTE THOMSON Attending Clinician Unavailable BIANKA WAHL Admitting Clinician Unav nusrat Wahl MD, Bianka Hernandez Admitting Clinician + ROCKY CONRAD Admitting Clinician Unavailluke Conrad MD, Rocky Carballo Admitting Clinician + [phone] AUDREY HAYDEN Admitting Clinician Unavailable Audrey Hayden MD Admitting Clinician [phone] Payers Payer Name Policy Type Policy Number Effective Date Expirati on Date Source [facility] [id number] 2022 00:00:00 [facility] [id number] 2022 00:00:00 [employer] [place] [id number] 2022 00:00:00 Problems Condition Name Condition Details Condition Category Status Onset Date Resolution Date Last Treatment Date Treating Clinician Comments Source spinal headache spinal headache Disease Active 2021-11 2- 00:00: 00 [facility] Morbid obesity with body mass index of 40.0-49.9 Morbid obesity with body mass index of 40.0-49.9 Disease Active 2021-11 2-17 00:00: 00 [facility] 40 weeks gestation of 40 weeks gestation of Disease Active 2021-11 2-16 00:00: 00 [facility] Excessive weight gain affecting Excessive weight gain affecting Disease Active 2021-11 2-03 00:00: 00 [facility] Refused influenza vaccine Refused influenza vaccine Disease Active 2021-11 2- 00:00: 00 [facility] Anemia during in third trimester Anemia during in third trimester Disease Active 2021-11 1-16 00:00: 00 [facility] Pain of round ligament during Pain of round ligament during Disease Active 2021-11 0-27 00:00: 00 [facility] Adnexal cyst Adnexal cyst Disease Active 06-18 00:00: 00 Overview: Formattin g of this note might be different from the original. Noted on usg left side, follow up usg in 3/4 weeks scheduled [facility] Left ovarian cyst- measuring 5.89 x 4.51 x 5.55 cm Left ovarian cyst- measuring 5.89 x 4.51 x 5.55 cm Disease Active 06-18 00:00: 00 Overview: Formattin g of this note might be different from the original. Noted on usg left side, follow up usg in 3/4 weeks scheduled [facility] Supervisio n of high-risk Supervisio n of high-risk Disease Active 03-19 00:00: 00 [facility] Nausea and vomiting during Nausea and vomiting during Disease Active 03-19 00:00: 00 [facility] Obesity in Obesity in Disease Active 03-19 00:00: 00 [facility] Allergies, Adverse Reactions, Alerts Allergy Name Allergy Type Status Severity Reaction(s) Onset Date Inactive Date Treating Clinician Comments Source SHRIMP DRUG INGREDI Active Swelling 03-19 00:00: 00 [facility] Shrimp Propensi ty to adverse reaction s Active Swelling 03-19 00:00: 00 [facility] Social History Social Habit Start Date Stop Date Quantity Comments Source ASSERTION 2022-02-12 00:00:00 [facility] Exposure to SARS-CoV-2 (event) 2022-12-21 00:00:00 2022-12-31 15:44:00 Not sure [facility] History of Social function 2022-12-21 00:00:00 2022-12-21 00:00:00 [facility] Alcohol intake 2022-03-19 00:00:00 2022-03-19 00:00:00 Lifetime non-drinker (finding) [facility] Tobacco use and exposure 2021-04-22 00:00:00 2021-04-22 00:00:00 Smokeless tobacco non-user [facility] Sex Assigned At 2000 00:00:00 2000 00:00:00 [facility] Smoking Status Start Date Stop Date Source Never smoked tobacco [facility] Medications Ordered Medication Name Filled Medication Name Start Date Stop Date Current Medication? Ordering Clinician Indication Dosage Frequency Signature (SIG) Comments Components Source TAKE 1 CAPSULE TWICE DAILY. 12-20 00:00: 00 Yes 100 Haseeb Burch TAKE 1 TABLET DAILY. 11-22 00:00: 00 01-22 00:00 :00 No 10 Haseebblaze Burch TAKE 1 CAPSULE EVERY 8 HOURS. 11-22 00:00: 00 01-22 00:00 :00 No 500 Haseeb Burch TAKE 10 ML EVERY 4-6 HOURS NEEDED 11-22 00:00: 00 01-22 00:00 :00 No [id number] Haseeb Aftab Burch amoxicillin -clavulanat e 875-125 mg per tablet 12-19 00:00: 00 Yes [id number] TAKE 1 TABLET BY MOUTH EVERY 12 HOURS FOR 10 DAYS FOR INFECTIOUS PROCESS [facility] TAKE 1 TABLET BY MOUTH EVERY 12 HOURS FOR 10 DAYS FOR INFECTIOUS PROCESS 1- 00:00: 00 Yes Haseeb Burch butalbital- acetaminoph en-caff (ESGIC) 50-325-40 mg tablet 1 tablet 2021-11 21:00: 00 11-11 20:11 :00 No 1{tbl} 1 tablet, Oral, ONCE NOW, 1 dose, On Jeanie 11/11/22 at 1500, Routine [facility] butalbital- acetaminoph en-caff (ESGIC) 50-325-40 mg tablet 1 tablet 2021-11 00:15: 00 11-10 23:37 :00 No 1{tbl} 1 tablet, Oral, ONCE, 1 dose, On Tue11/10/22 at 1815, Routine [facility] cefTRIAXone (ROCEPHIN) injection 1,000 mg 2021-11 00:00: 00 Yes 1000mg 1,000 mg, Intramuscu lar, Q24H ABX, First dose (after last modificati on) on Tue11/10/22 at 1800, Until Discontinu ed, MO
Re ason for Anti-Infec tive: Empiric Therapy for Suspected Infection& lt;br>Empi cricket Therapy Site: Urine
D uration of therapy: 72 hours [facility] butalbital- acetaminoph en-caff (ESGIC) 50-325-40 mg tablet 2021-11 00:00: 00 12-23 00:00 :00 No [id number] 1{tbl} Take 1 tablet by mouth every 6 (six) hours. [facility] metoclopram max HCl (REGLAN) tablet 10 mg 2021-11 22:30: 00 Yes 10mg 10 mg, Oral, AC, First dose on Tue11/10/22 at 1630, Until Discontinu ed, Routine [facility] diphenhydrA MINE (BENADRYL) tablet 50 mg 2021-11 22:30: 00 11-10 22:26 :00 No 50mg 50 mg, Oral, ONCE, 1 dose, On Tue11/10/22 at 1630, MO [facility] cephALEXin (KEFLEX) 500 mg capsule 2021-11 00:00: 00 11-18 05:59 :00 No [id number] 500mg Take 1 capsule by mouth in the morning and 1 capsule at noon and 1 capsule in the evening. Do all this for 7 days. [facility] vitamin w/FA tablet 2021-11 00:00: 00 12-23 00:00 :00 No [id number] 1{tbl} Take 1 tablet by mouth in the morning. [facility] docusate 100 mg capsule 2021-11 00:00: 00 12-23 00:00 :00 No [id number] 200mg Take 2 capsules by mouth once daily as needed for Constipati on. [facility] ferrous sulfate 325 mg (65 mg iron) tablet 2021-11 00:00: 00 12-23 00:00 :00 No [id number] 325mg Take 1 tablet by mouth in the morning and 1 tablet in the evening. [facility] ibuprofen 600 mg tablet 2021-11 00:00: 00 12-23 00:00 :00 No [id number] 600mg Take 1 tablet by mouth every 6 (six) hours as needed (Pain). Take with food or milk. [facility] HYDROcodone -acetaminop hen 5-325 mg tablet 2021-11 00:00: 00 11-16 05:59 :00 No [id number] 1{tbl} Take 1 tablet by mouth every 6 (six) hours as needed (Pain scale above 4) for up to 7 days. Do not exceed 3 grams of acetaminop hen in 24 hours. Indication s: acute pain [facility] rho(D) immune globulin (RHOGAM) syringe 300 mcg 2021-11 10:46: 15 Yes 300ug 300 mcg, Intramuscu lar, ONCE, For 1 dose, Conditiona l, Routine [facility] HYDROcodone -acetaminop hen (NORCO 5) 5-325 mg tablet 2 tablet 2021-11 10:46: 12 Yes 2{tbl} 2 tablet, Oral, Q6HPRN, Starting on 11/07/22 at 0446, Until Discontinu ed, Routine, Pain (scale 7-10), Alternate with Ibuprofen [facility] HYDROcodone -acetaminop hen (NORCO 5) 5-325 mg tablet 1 tablet 2021-11 10:46: 11 Yes 1{tbl} 1 tablet, Oral, Q6HPRN, Starting on 11/07/22 at 0446, Until Discontinu ed, Routine, Pain (scale 4-6), Alternate with Ibuprofen [facility] ibuprofen (IBU) tablet 600 mg 2021-11 10:46: 11 Yes 600mg 600 mg, Oral, Q6HPRN, Starting on 11/07/22 at 0446, Until Discontinu ed, Routine, Pain (scale 1-3) [facility] diphenhydrA MINE (BENADRYL) injection 25 mg 2021-11 10:46: 11 Yes 25mg 25 mg, Slow IV Push, Q6HPRN, Starting on 11/07/22 at 0446, Until Discontinu ed, Routine, Itching [facility] diphenhydrA MINE (BENADRYL) tablet 25 mg 2021-11 10:46: 11 Yes 25mg 25 mg, Oral, Q6HPRN, Starting on 11/07/22 at 0446, Until Discontinu ed, Routine, Sleep, Itching [facility] ondansetron (ZOFRAN (PF)) injection 4 mg 2021-11 10:46: 11 Yes 4mg 4 mg, Slow IV Push, Q8HPRN, Starting on 11/07/22 at 0446, Until Discontinu ed, Routine, Nausea and Vomiting (N/V) [facility] bisacodyL (DULCOLAX) suppository 10 mg 2021-11 10:46: 11 Yes 10mg 10 mg, Rectal, QDAILYPRN, Starting on 11/07/22 at 0446, Until Discontinu ed, Routine, Constipati on [facility] simethicone (GAS RELIEF (SIMETHICON E)) chewable tablet 160 mg 2021-11 10:46: 11 Yes 160mg 160 mg, Oral, PC+HSPRN, Starting on [place] 11/07/22 at 0446, Until Discontinu ed, Routine, Gas [facility] docusate (COLACE) capsule 200 mg 2021-11 10:46: 11 Yes 200mg 200 mg, Oral, QDAILYPRN, Starting on Tue11/07/22 at 0446, Until Discontinu ed, Routine, Constipati on [facility] magnesium hydroxide (MILK OF MAGNESIA) 400 mg/5 mL suspension 30 mL 2021-11 10:46: 11 Yes 30mL 30 mL, Oral, QDAILYPRN, Starting on Tue11/07/22 at 0446, Until Discontinu ed, Routine, Constipati on [facility] lactated ringers IV infusion 1,000 mL 2021-11 10:46: 11 Yes 1000mL at 125 mL/hr, 1,000 mL, IV Infusion, PRN, 1 dose, Starting on Tue11/07/22 at 0446, Until Discontinu ed, Routine [facility] nalbuphine (NUBAIN) injection 5 mg 2021-11 08:32: 34 Yes 5mg 5 mg, Intravenou s, PRN, 1 dose, Starting on Tue11/07/22 at 0232, Until Discontinu ed, Routine, itching, PACU [facility] naloxone (NARCAN) injection 0.4 mg 2021-11 08:32: 34 11-09 08:31 :34 No .4mg 0.4 mg, Slow IV Push, PRN - SEE ROCAEL NS, Starting on Tue11/07/22 at 0232, Until Tue11/09/22 at 0231, Routine, Analgesia Recovery, PACU [facility] ketorolac (TORADOL) injection 30 mg 2021-11 08:32: 34 11-07 08:47 :00 No 30mg 30 mg, Slow IV Push, PRN, 1 dose, Starting on Tue11/07/22 at 0232, Until Tue11/09/22 at 2359, Routine, Pain (scale 7-10), PACU [facility] methylergon ovine (METHERGINE ) injection 2021-11 07:22: 00 Yes Intramuscu lar, ONCE INTRA PROCEDURE, Starting on Tue11/07/22 at 0122, Until Discontinu ed, Routine, Intra-op [facility] diphenhydrA MINE (BENADRYL) injection 2021-11 07:20: 00 Yes Slow IV Push, ONCE INTRA PROCEDURE, Starting on Tue11/07/22 at 0120, Until Discontinu ed, Routine, Intra-op [facility] ondansetron (ZOFRAN (PF)) injection 2021-11 07:20: 00 Yes Slow IV Push, ONCE INTRA PROCEDURE, Starting on Tue11/07/22 at 0120, Until Discontinu ed, Routine, Intra-op [facility] oxytocin (PITOCIN) 30 units in NS 500 mL IV infusion 2021-11 07:13: 00 Yes IV Infusion, CONTINUOUS PRN, Starting on Tue11/07/22 at 0113, Until Discontinu ed, Routine, Intra-op [facility] lactated ringers IV infusion 2021-11 06:52: 00 Yes IV Infusion, CONTINUOUS PRN, Starting on Tue11/07/22 at 0052, Until Discontinu ed, Routine, Intra-op [facility] lactated ringers IV infusion 1,000 mL 2021-11 06:45: 00 11-08 15:44 :00 No 1000mL at 125 mL/hr, 1,000 mL, IV Infusion, CONTINUOUS , Starting on Tue11/07/22 at 0045, Until Tue11/08/22 at 0944, MO [facility] lidocaine-e pinephrine (XYLOCAINE W/EPINEPHRI NE) 2 %-1:200,000 [...] Until Discontinu ed, Routine, Pain (scale 7-10) [facility] HYDROcodone -acetaminop hen (NORCO 5) 5-325 mg tablet 1 tablet 2021-11 06:34: 39 11-07 18:52 :00 No 1{tbl} 1 tablet, Oral, Q6HPRN, 1 dose, Starting on Tue11/07/22 at 0034, Until Discontinu ed, Routine, Pain (scale 4-6) [facility] ibuprofen (IBU) tablet 600 mg 2021-11 06:34: 38 Yes 600mg 600 mg, Oral, Q6HPRN, Starting on 11/07/22 at 0034, Until Discontinu ed, Routine, Pain (scale 1-3) [facility] oxytocin (PITOCIN) 30 units in NS 500 mL IV infusion 2021-11 06:34: 25 Yes 600mL/h 600 mL/hr, IV Infusion, PRN, For post delivery uterine atony., Starting on Tue11/07/[address] at 600 mL/hr for 1 hr then 150 mL/hr for 1 hr.
[facility] oxytocin (PITOCIN) 30 units in NS 500 mL IV infusion 2021-11 06:34: 25 Yes 300mL/h 300 mL/hr, IV Infusion, SEE-INSTRU CTIONS, Starting on Tue11/07/[address] at 300 mL/hr for 1 hr then 150 mL/hr for 1 hr. & nbsp; For post delivery uterotonic
[facility] azithromyci n (ZITHROMAX) 500 mg in NaCl 0.9% (NS) 250 mL VIAL-MATE IV piggyback 2021-11 06:02: 05 11-08 06:01 :05 No 500mg 500 mg, IV Piggyback, O.R. HOLDING ONCE, Starting on 11/07/22 at 0002, Until 11/08/22 at 0001, Administer over 60 Minutes, 250 mL
Reas on for Anti-Infec tive: Surgical Prophylaxi s
Surgi natalie Prophylaxi s: FRUIT PACKER FACE AND FILL
Duration of therapy: within 24 hours of surgery
Reason for Anti-Infec tive: Documented Infection< br>Documen steven Infection Site: Pelvic
Duration of Therapy: 7 days [facility] ceFAZolin in 0.9% sodium chloride (ANCEF) 2 gram/100 mL RTU 2 g 2021-11 06:01: 51 11-08 06:00 :51 No 2000mg 2 g (2,000 mg), IV Piggyback, O.R. HOLDING ONCE, Starting on 11/07/22 at 0001, Until Tue11/08/22 at 0000, Administer over 30 Minutes, 100 mL
Reas on for Anti-Infec tive: Surgical Prophylaxi s
Surgi natalie Prophylaxi s: FRUIT PACKER FACE AND FILL
Duration of therapy: within 24 hours of surgery [facility] diphenhydrA MINE (BENADRYL) injection 25 mg 2021-11 05:15: 00 11-07 04:26 :00 No 25mg 25 mg, Intravenou s, ONCE, 1 dose, On 11/06/22 at 2315, Routine [facility] tobramycin (NEBCIN) 380 mg in NaCl 0.9% [...] Site: Pelvic
Duration of Therapy: 7 days [facility] ampicillin (POLYCILLIN -N) 2,000 mg in NaCl 0.9% (NS) 100 mL MINI-BAG 2021-11 02:30: 00 11-08 12:31 :36 No 2g 2,000 mg (2 g), IV Piggyback, Q6H ABX, First dose on 11/06/22 at 2030, Until Discontinu ed, Administer over 30 Minutes, 100 mL
Reas on for Anti-Infec tive: Documented Infection< br>Documen steven Infection Site: Pelvic
Duration of Therapy: 7 days [facility] acetaminoph en (TYLENOL) tablet 1,000 mg 2021-11 02:30: 00 11-07 01:36 :00 No 1000mg 1,000 mg, Oral, ONCE, 1 dose, On [facility] 11/06/22 at 2030, Routine [facility] hydrOXYzine (ATARAX) tablet 10 mg 2021-11 21:30: 00 11-06 20:39 :00 No 10mg 10 mg, Oral, ONCE, 1 dose, On 11/06/22 at 1530, Routine [facility] FENTanyl PF (SUBLIMAZE (PF)) injection 50 mcg 2021-11 21:30: 00 11-06 21:21 :00 No 50ug 50 mcg, Slow IV Push, ONCE, 1 dose, On 11/06/22 at 1530, Routine [facility] PIB ropivacaine 0.2 % (NAROPIN (PF)) epidural infusion 2021-11 05:35: 00 Yes Epidural, CONTINUOUS PRN, Starting on Tue11/05/22 at 2335, Until Discontinu ed, Routine, Intra-op [facility] lidocaine-e pinephrine (XYLOCAINE W/EPINEPHRI NE) 2 %-1:200,000 injection 2021-11 05:30: 00 Yes Intravenou s, ONCE INTRA PROCEDURE, Starting on Tue11/05/22 at 2330, Until Discontinu ed, Routine, Intra-op [facility] oxytocin (PITOCIN) 30 units in NS 500 mL IV infusion 2021-11 04:59: 10 Yes 2mU/min at 2-40 mL/hr, IV Infusion, TITRATE, Starting on Tue11/05/22 at 2259, Until Discontinu ed, MO [facility] lactated ringers IV infusion 500 mL 2021-11 04:45: 00 11-06 04:47 :06 No 500mL at 999 mL/hr, 500 mL, IV Infusion, ONCE, 1 dose, On Tue11/05/22 at 2245, Routine [facility] sodium citrate-cit cricket acid (BICITRA) 500-334 mg/5 mL solution 30 mL 2021-11 03:58: 39 Yes 30mL 30 mL, Oral, PRE-PROCED URE ONCE, 1 dose, Starting on Tue11/05/22 at 2158, Until Discontinu ed, Routine, Surgery/Pr ocedure [facility] lactated ringers IV infusion 500 mL 2021-11 03:58: 39 Yes 500mL at 999 mL/hr, 500 mL, IV Infusion, PRN - SEE INSTRUCTIO NS, 1 dose, Starting on Tue11/05/22 at 2158, Until Discontinu ed, Routine [facility] proMETHazin e (PHENERGAN) 12.5 mg in NS 50 mL IV piggyback (CNR) 2021-11 00:30: 00 11-06 00:27 :04 No 12.5mg 12.5 mg, IV Piggyback, at 200 mL/hr Administer over 15 Minutes, ONCE, 1 dose, On Tue11/05/22 at 1830, Routine [facility] butorphanol (STADOL) injection 1 mg 2021-11 00:15: 00 11-06 00:10 :00 No 1mg 1 mg, Intravenou s, ONCE, 1 dose, On Tue11/05/22 at 1815, Routine [facility] butorphanol (STADOL) injection 1 mg 2021-11 17:45: 00 11-05 16:46 :00 No 1mg 1 mg, Intravenou s, ONCE, 1 dose, On Tue11/05/22 at 1145, Routine [facility] lidocaine 1% (XYLOCAINE) 10 mg/mL (1 %) injection 50 mL 2021-11 14:54: 23 Yes 50mL 50 mL, Infiltrati on, PRN - SEE INSTRUCTIO NS, Starting on Tue11/05/22 at 0854, Until Discontinu ed, Routine, Local anesthesia , For laceration repair only as a local anesthetic as indicated. [facility] lidocaine 1% (PF) (XYLOCAINE) injection 0.3 mL 2021-11 14:54: 23 Yes .3mL 0.3 mL, Infiltrati on, PRN - SEE INSTRUCTIO NS, Starting on Tue11/05/22 at 0854, Until Discontinu ed, Routine, Local anesthesia , For IV line placement only as a local anesthetic . [facility] lactated ringers IV infusion 500 mL 2021-11 14:54: 23 Yes 500mL at 999 mL/hr, 500 mL, IV Infusion, PRN - SEE INSTRUCTIO NS, Starting on Tue11/05/22 at 0854, Until Discontinu ed, Routine [facility] D5W-LR IV infusion 1,000 mL 2021-11 14:54: 23 Yes 1000mL at 1-125 mL/hr, IV Infusion, TITRATE, Starting on Tue11/05/22 at 0854, Until Discontinu ed, Routine [facility] sodium citrate-cit cricket acid (BICITRA) 500-334 mg/5 mL solution 30 mL 2021-11 14:54: 23 11-06 04:15 :00 No 30mL 30 mL, Oral, PRE-PROCED URE ONCE, 1 dose, Starting on Tue11/05/22 at 0854, Until Discontinu ed, Routine, Surgery/Pr ocedure [facility] tolnaftate (TINACTIN) 1 % cream 2021-11 00:00: 00 12-23 00:00 :00 No [id number] Apply to area(s) 2 (two) times daily. Until rash clears plus 2 more weeks [facility] ascorbic acid, vitamin C, 500 mg tablet 08-06 00:00: 00 12-23 00:00 :00 No [id number] 500mg Take 1 tablet by mouth in the morning and 1 tablet at noon and 1 tablet in the evening. [facility] ferrous sulfate 325 mg (65 mg iron) tablet 08-06 00:00: 00 12-23 00:00 :00 No [id number] 325mg Take 1 tablet by mouth in the morning and 1 tablet in the evening. [facility] PNV 67-iron ps-folate no.1-dha (VITAFOL ULTRA) 29 mg iron- 1 mg-200 mg Cap 03-19 00:00: 00 Yes [id number] 1{each} Take 1 Each by mouth daily. [facility] PNV 67-iron ps-folate no.1-dha (VITAFOL ULTRA) 29 mg iron- 1 mg-200 mg Cap 03-19 00:00: 00 Yes [id number] 1{each} Take 1 Each by mouth daily. [facility] proMETHazin e 25 mg tablet 03-19 00:00: 00 10-23 00:00 :00 No [id number] 25mg Take 1 tablet by mouth every 6 (six) hours as needed for Nausea and Vomiting (N/V). [facility] Vital Signs Vital Name Observation Time Observation Value Comments S ource Systolic blood pressure 2022-12-31 21:44:00 99 mm[Hg] [facility] Diastolic blood pressure 2022-12-31 21:44:00 61 mm[Hg] [facility] Heart rate 2022-12-31 21:44:00 80 /min [facility] Body temperature 2022-12-31 21:44:00 36 Aicha [facility] Respiratory rate 2022-12-31 21:44:00 18 /min [facility] Body height 2022-12-31 21:44:00 160 cm [facility] Body weight 2022-12-31 21:44:00 93.033 kg [facility] BMI 2022-12-31 21:44:00 36.33 kg/m2 [facility] Systolic blood pressure 2022-12-21 22:00:00 98 mm[Hg] [facility] Diastolic blood pressure 2022-12-21 22:00:00 54 mm[Hg] [facility] Heart rate 2022-12-21 22:00:00 69 /min [facility] Body temperature 2022-12-21 22:00:00 36.5 Aicha [facility] Respiratory rate 2022-12-21 22:00:00 18 /min [facility] Body height 2022-12-21 22:00:00 160 cm [facility] Body weight 2022-12-21 22:00:00 94.802 kg [facility] BMI 2022-12-21 22:00:00 37.02 kg/m2 [facility] Systolic blood pressure 2022-12-19 22:41:00 115 mm[Hg] [facility] Diastolic blood pressure 2022-12-19 22:41:00 60 mm[Hg] [facility] Heart rate 2022-12-19 22:41:00 74 /min [facility] Body temperature 2022-12-19 22:41:00 36.44 Aicha [facility] Respiratory rate 2022-12-19 22:41:00 12 /min [facility] Body height 2022-12-19 22:41:00 160 cm [facility] Body weight 2022-12-19 22:41:00 94.802 kg [facility] BMI 2022-12-19 22:41:00 37.02 kg/m2 [facility] Oxygen saturation in Arterial blood by Pulse oximetry 2022-12-19 22:41:00 99 /min [facility] Systolic blood pressure 2022-12-01 04:21:00 118 mm[Hg] [facility] Diastolic blood pressure 2022-12-01 04:21:00 76 mm[Hg] [facility] Heart rate 2022-12-01 04:21:00 78 /min [facility] Body temperature 2022-12-01 04:21:00 36.72 Aicha [facility] Respiratory rate 2022-12-01 04:21:00 18 /min [facility] Body height 2022-12-01 04:21:00 160 cm [facility] Body weight 2022-12-01 04:21:00 92.987 kg [facility] BMI 2022-12-01 04:21:00 36.31 kg/m2 [facility] Oxygen saturation in Arterial blood by Pulse oximetry 2022-12-01 04:21:00 100 /min [facility] Systolic blood pressure 2022-11-16 15:33:00 105 mm[Hg] [facility] Diastolic blood pressure 2022-11-16 15:33:00 70 mm[Hg] [facility] Heart rate 2022-11-16 15:33:00 104 /min [facility] Body temperature 2022-11-16 15:33:00 36.17 Aicha [facility] Respiratory rate 2022-11-16 15:33:00 20 /min [facility] Body height 2022-11-16 15:33:00 160 cm [facility] Body weight 2022-11-16 15:33:00 99.882 kg [facility] BMI 2022-11-16 15:33:00 39.01 kg/m2 [facility] Systolic blood pressure 2022-11-11 19:02:00 120 mm[Hg] [facility] Diastolic blood pressure 2022-11-11 19:02:00 72 mm[Hg] [facility] Heart rate 2022-11-11 18:51:00 92 /min [facility] Body temperature 2022-11-11 18:51:00 36.78 Aicha [facility] Oxygen saturation in Arterial blood by Pulse oximetry 2022-11-11 18:51:00 98 /min [facility] Systolic blood pressure 2022-11-11 00:02:00 128 mm[Hg] [facility] Diastolic blood pressure 2022-11-11 00:02:00 88 mm[Hg] [facility] Heart rate 2022-11-11 00:02:00 75 /min [facility] Respiratory rate 2022-11-11 00:02:00 18 /min [facility] Oxygen saturation in Arterial blood by Pulse oximetry 2022-11-11 00:02:00 98 /min [facility] Body temperature 2022-11-10 21:50:00 37.22 Aicha [facility] Body height 2022-11-10 21:50:00 160 cm [facility] Body weight 2022-11-10 21:50:00 104.327 kg [facility] BMI 2022-11-10 21:50:00 40.74 kg/m2 [facility] Heart rate 2022-11-08 13:40:00 119 /min [facility] Systolic blood pressure 2022-11-08 13:28:00 145 mm[Hg] pt was in pain. nurse will recheck pulse [facility] Diastolic blood pressure 2022-11-08 13:28:00 79 mm[Hg] pt was in pain. nurse will recheck pulse [facility] Body temperature 2022-11-08 13:28:00 37 Aicha [facility] Respiratory rate 2022-11-08 13:28:00 20 /min [facility] Oxygen saturation in Arterial blood by Pulse oximetry 2022-11-08 13:28:00 97 /min [facility] Body weight 2022-11-06 20:30:00 110 kg [facility] BMI 2022-11-06 20:30:00 42.97 kg/m2 [facility] Systolic blood pressure 2022-11-07 09:00:00 121 mm[Hg] [facility] Diastolic blood pressure 2022-11-07 09:00:00 56 mm[Hg] [facility] Heart rate 2022-11-07 09:00:00 107 /min [facility] Respiratory rate 2022-11-07 09:00:00 18 /min [facility] Oxygen saturation in Arterial blood by Pulse oximetry 2022-11-07 09:00:00 98 /min [facility] Body temperature 2022-11-07 08:30:00 38.44 Aicha [facility] Body weight 2022-11-06 20:30:00 110 kg [facility] BMI 2022-11-06 20:30:00 42.97 kg/m2 [facility] Systolic blood pressure 2022-10-30 18:30:00 119 mm[Hg] [facility] Diastolic blood pressure 2022-10-30 18:30:00 84 mm[Hg] [facility] Heart rate 2022-10-30 18:30:00 88 /min [facility] Body temperature 2022-10-30 18:30:00 36.78 Aicha [facility] Respiratory rate 2022-10-30 18:30:00 18 /min [facility] Body height 2022-10-30 18:30:00 160 cm [facility] Body weight 2022-10-30 18:30:00 110 kg [facility] BMI 2022-10-30 18:30:00 42.97 kg/m2 [facility] Oxygen saturation in Arterial blood by Pulse oximetry 2022-10-30 18:30:00 99 /min [facility] Systolic blood pressure 2022-10-23 16:06:00 117 mm[Hg] [facility] Diastolic blood pressure 2022-10-23 16:06:00 70 mm[Hg] [facility] Heart rate 2022-10-23 16:06:00 99 /min [facility] Body temperature 2022-10-23 16:06:00 36.39 Aicha [facility] Respiratory rate 2022-10-23 16:06:00 20 /min [facility] Body height 2022-10-23 16:06:00 160 cm [facility] Body weight 2022-10-23 16:06:00 109.272 kg [facility] BMI 2022-10-23 16:06:00 42.67 kg/m2 [facility] Systolic blood pressure 2022-10-11 17:21:00 128 mm[Hg] [facility] Diastolic blood pressure 2022-10-11 17:21:00 69 mm[Hg] [facility] Heart rate 2022-10-11 17:21:00 107 /min [facility] Body temperature 2022-10-11 17:21:00 36.61 Aicha [facility] Respiratory rate 2022-10-11 17:21:00 16 /min [facility] Body height 2022-10-11 17:21:00 160 cm [facility] Body weight 2022-10-11 17:21:00 107.616 kg [facility] BMI 2022-10-11 17:21:00 42.03 kg/m2 [facility] Systolic blood pressure 2022-10-06 17:03:00 109 mm[Hg] [facility] Diastolic blood pressure 2022-10-06 17:03:00 68 mm[Hg] [facility] Heart rate 2022-10-06 17:03:00 100 /min [facility] Body temperature 2022-10-06 17:03:00 36.06 Aicha [facility] Respiratory rate 2022-10-06 17:03:00 18 /min [facility] Body height 2022-10-06 17:03:00 160 cm [facility] Body weight 2022-10-06 17:03:00 106.737 kg [facility] BMI 2022-10-06 17:03:00 41.68 kg/m2 [facility] Systolic blood pressure 2022-10-01 21:09:00 113 mm[Hg] [facility] Diastolic blood pressure 2022-10-01 21:09:00 68 mm[Hg] [facility] Heart rate 2022-10-01 21:09:00 98 /min [facility] Body temperature 2022-10-01 21:09:00 36.56 Aicha [facility] Respiratory rate 2022-10-01 21:09:00 16 /min [facility] Body height 2022-10-01 21:09:00 160 cm [facility] Body weight 2022-10-01 21:09:00 105.461 kg [facility] BMI 2022-10-01 21:09:00 41.19 kg/m2 [facility] Systolic blood pressure 2022-09-16 21:10:00 117 mm[Hg] [facility] Diastolic blood pressure 2022-09-16 21:10:00 66 mm[Hg] [facility] Heart rate 2022-09-16 21:10:00 98 /min [facility] Body temperature 2022-09-16 21:10:00 36.28 Aicha [facility] Respiratory rate 2022-09-16 21:10:00 18 /min [facility] Body height 2022-09-16 21:10:00 160 cm [facility] Body weight 2022-09-16 21:10:00 104.441 kg [facility] BMI 2022-09-16 21:10:00 40.79 kg/m2 [facility] Systolic blood pressure 2022-09-02 20:30:00 109 mm[Hg] [facility] Diastolic blood pressure 2022-09-02 20:30:00 70 mm[Hg] [facility] Heart rate 2022-09-02 20:30:00 106 /min [facility] Body temperature 2022-09-02 20:30:00 36.39 Aicha [facility] Respiratory rate 2022-09-02 20:30:00 17 /min [facility] Body height 2022-09-02 20:30:00 160 cm [facility] Body weight 2022-09-02 20:30:00 103.42 kg [facility] BMI 2022-09-02 20:30:00 40.39 kg/m2 [facility] Systolic blood pressure 2022-08-19 21:27:00 116 mm[Hg] [facility] Diastolic blood pressure 2022-08-19 21:27:00 61 mm[Hg] [facility] Heart rate 2022-08-19 21:27:00 100 /min [facility] Body temperature 2022-08-19 21:27:00 36.44 Aicha [facility] Respiratory rate 2022-08-19 21:27:00 18 /min [facility] Body weight 2022-08-19 21:27:00 103.511 kg [facility] BMI 2022-08-19 21:27:00 40.42 kg/m2 [facility] Heart Rate 2024-07-19 18:56:00 Haseeb Burch Respiratory Rate 2024-07-19 18:56:00 Haseeb Burch BP Systolic 2024-07-19 18:56:00 Haseeb Burch BP Diastolic 2024-07-19 18:56:00 Haseeb Burch Weight Measured 2024-07-19 18:56:00 Haseeb Burch Height Measured 2024-07-19 18:56:00 Haseeb Burch [...] CBC WITH DIFF 2022-12-21 22:31:00 Yoly Mei [facility] CONSENT/REFUSAL FOR DIAGNOSIS AND TREATMENT 2022-12-19 22:38:00 Doctor Unassigned, [place] [facility] CONSENT/REFUSAL FOR DIAGNOSIS AND TREATMENT 2022-12-01 04:14:11 Doctor Unassigned, [place] [facility] URINALYSIS 2022-11-10 22:22:00 Junior Sanchez [facility] RAPID INFLUENZA A/B 2022-11-10 22:22:00 Kev Sanchez [facility] COVID-19 (ID NOW RAPID TESTING) 2022-11-10 22:22:00 Junior Sanchez [facility] CONSENT/REFUSAL FOR DIAGNOSIS AND TREATMENT 2022-11-10 21:39:22 Doctor Unassigned, [place] [facility] CBC WITH DIFF 2022-11-08 11:27:00 Jenramses Antonio [facility] CBC WITH DIFF 2022-11-08 11:27:00 JenConnie pearcelenore [facility] VENOUS CORD GAS 2022-11-07 07:15:00 Evelyne [facility] VENOUS CORD GAS 2022-11-07 07:15:00 Elvia Stubbsshua [facility] SECTION 2022-11-07 06:29[facility] 06:29:00 Steve Jimenez [facility] CENTRAL NEURAXIAL BLOCK 2022-11-06 05:38:50 Jonathan Bedoya [facility] CBC WITH DIFF 2022-11-05 15:09:00 Veto Stubbs [facility] HEPATITIS B SURFACE ANTIGEN 2022-11-05 15:09:00 Elvia Stubbsshua [facility] HIV 1/2 AG-AB WITH REFLEX 2022-11-05 15:09:00 Veto Stubbs [facility] GALV ONLY - SYPHILIS IGG/IGM 2022-11-05 15:09:00 Elvia Stubbsshua [facility] CBC WITH DIFF 2022-11-05 15:09:00 Veto Stubbs [facility] HEPATITIS B SURFACE ANTIGEN 2022-11-05 15:09:00 Elvia Stubbsshua [facility] HIV 1/2 AG-AB WITH REFLEX 2022-11-05 15:09:00 Elvia Stubbsshua [facility] GALV ONLY - SYPHILIS IGG/IGM 2022-11-05 15:09:00 Veto Stubbs [facility] HB ABO GROUPING 2022-11-05 15:07:00 Elvia Stubbsshua [facility] RHO (D) IMMUNE GLOBULIN 2022-11-05 15:07:00 Antonio Oneil [facility] HB ABO GROUPING 2022-11-05 15:07:00 Veto Stubbs [facility] RHO (D) IMMUNE GLOBULIN 2022-11-05 15:07:00 Antonio Oneil [facility] NOTICE OF PRIVACY PRACTICES 2022-10-30 18:16:50 Doctor Unassigned, [place] [facility] CONSENT/REFUSAL FOR DIAGNOSIS AND TREATMENT 2022-10-30 18:11:51 Doctor Unassigned, [place] [facility] POCT URINALYSIS 2022-10-23 00:00:00 Nataliia Dodson [facility] DME/SUPPLY JUSTIFICATION 2022-10-20 06:01:00 Doc tor Unassigned, [place] [facility] POCT URINALYSIS 2022-10-11 17:22:00 Nataliia Dodson [facility] POCT URINALYSIS 2022-10-06 17:04:00 Nataliia Dodson [facility] POCT URINALYSIS 2022-10-01 21:10:00 Nataliia Dodson [facility] POCT URINALYSIS 2022-09-16 21:13:00 Nataliia Dodson [facility] POCT URINALYSIS 2022-09-02 00:00:00 Nataliia Dodson [facility] HIV 1/2 AG-AB WITH REFLEX 2022-08-20 16:04:00 Nataliia Dodson [facility] GALV ONLY - SYPHILIS IGG/IGM 2022-08-20 16:04:00 Nataliia Dodson [facility] TDAP VACCINE, >11 YRS, IM 2022-08-19 21:20:21 Nataliia Dodson [facility] Encounters Start Date/Time End Date/Time Encounter Type Admission Type Attending [facility] Care Facility Care Department Encounter ID Source 2025-02-15 11:58:27 2025-02-15 11:58:[address] [facility] [id number] Haseeb Burch 2024-07-19 00:00:00 2024-07-19 00:00:[address] [facility] [id number] Haseeb Ugalde Marcin 2023-12-20 17:38:05 2023-12-20 17:38:[address] [facility] [id number] Haseeb Burch 2023-11-22 15:40:53 2023-11-22 15:40:[address] [facility] [id number] Haseeb Ugalde Marcin 2022-12-31 15:30:00 2022-12-31 16:18:52 Outpatient R NATALIIA DODSON [facility] [id number] [facility] 2022-12-31 15:30:00 2022-12-31 16:18:52 Office Visit Nataliia Dodson [facility]ILD [facility] 1.840.114 350.1.13.10 4.2.7.2.686 [id number] [facility] 2022-12-31 00:00:00 2022-12-31 00:00:00 Patient Secure Msg Doctor Unassigned, [place] [facility] 1.840.114 350.1.13.10 4.2.7.2.686 [id number] [facility] 2022-12-21 15:45:00 2022-12-21 16:38:30 Outpatient R YOLY MEI [facility] [id number] [facility] 2022-12-21 15:45:00 2022-12-21 16:38:30 Office Visit Provider, Jesus-Rmchp Yoly Lama [facility] [employer] [facility] FILL [facility] CHILD [facility] 1.840.114 350.1.13.10 4.2.7.2.686 [id number] [facility] 2022-12-19 16:43:00 2022-12-19 17:08:00 Emergency X PETER RODRIGUEZ [facility] ERT [id number] [facility] 2022-12-19 16:43:00 2022-12-19 17:08:00 Emergency Peter Rodriguez [facility] 1.2.840.114 350.1.13.10 4.2.7.2.686 [id number] [facility] 2022-12-10 15:45:00 2022-12-10 15:45:00 Outpatient YOLY AUSTIN [facility] [id number] [facility] 2022-12-07 16:00:00 2022-12-07 16:00:00 Outpatient YOLY AUSTIN [facility] [id number] [facility] 2022-11-30 22:24:00 2022-11-30 22:41:00 Emergency X FIDENCIO COOLEY [facility] ERT [id number] [facility] 2022-11-30 22:24:00 2022-11-30 22:41:00 Emergency Fidencio Cooley S [facility] 1..840.114 350.1.13.10 4.2.7.2.686 [id number] [facility] 2022-11-30 14:00:00 2022-11-30 14:00:00 Outpatient YOLY AUSTIN [facility] [id number] [facility] 2022-11-25 00:00:00 2022-11-25 00:00:00 Telephone Nataliia Dodson [facility] [employer] [facility] F[facility] & CHILD [facility] ..840.114 350.1.13.10 4.2.7.2.686 [id number] [facility] 2022-11-16 09:30:00 2022-11-16 09:30:00 [facility] Katrin Khalil Damilola C [facility] [employer] [facility] F[facility] 1.2.840.114 350.1.13.10 4.2.7.2.686 [id number] [facility] 2022-11-16 09:30:00 2022-11-16 09:07:58 Outpatient R NATALIIA DODSON [facility] [id number] [facility] 2022-11-11 12:39:00 2022-11-11 14:15:00 Outpatient P BIANKA WAHL [facility] [id number] [facility] 2022-11-11 12:39:00 2022-11-11 14:15:00 [facility] 1.2.840.114 350.1.13.10 4.2.7.2.686 [id number] [facility] 2022-11-11 00:00:00 2022-11-11 00:00:00 Telephone Steve Jimenez [facility] 1.2.840.114 350.1.13.10 4.2.7.2.686 [id number] [facility] 2022-11-10 15:56:00 2022-11-10 18:18:00 Emergency X JUNIOR SANCHEZ [facility] ERT [id number] [facility] 2022-11-10 15:56:00 2022-11-10 18:18:00 Emergency Delroy Allen Phillip [facility] 1.2.840.114 350.1.13.10 4.2.7.2.686 [id number] [facility] 2022-11-05 07:55:00 2022-11-08 17:34:00 Inpatient P ROCKY CONRAD [facility] [id number] [facility] 2022-11-05 07:55:00 2022-11-08 17:34:00 Hospital Encounter Rocky Conrad [facility] 1.2.840.114 350.1.13.10 4.2.7.2.686 [id number] [facility] 2022-11-07 01:15:00 2022-11-07 03:00:00 Surgery Tony Steve [facility] 1.2.840.114 350.1.13.10 4.2.7.2.686 [id number] [facility] 2022-11-05 22:28:00 2022-11-05 22:28:00 Anesthesia Event Jennifer Fajardo Stefanie [facility] 1.2840.114 350.1.13.10 4.2.7.2.686 [id number] [facility] 2022-10-30 12:23:00 2022-10-30 13:45:00 Outpatient X DERRELLTAMANNAADUREY [facility] [id number] [facility] 2022-10-30 12:23:00 2022-10-30 13:45:00 Emergency AdtamannaAudrey Khari [facility] 1.840.114 350.1.13.10 4.2.7.2.686 [id number] [facility] 2022-10-28 15:45:00 2022-10-28 15:45:00 Outpatient YOLY AUSTIN [facility] [id number] [facility] 2022-10-23 10:15:00 2022-10-23 10:30:34 Outpatient ROSAMARIA HENDRICKSON [facility] [id number] [facility] 2022-10-23 10:15:00 2022-10-23 10:30:34 Routine Visit Provider, KeyannaRmchp Rosamaria Carrera [facility] [employer] [facility] F[facility] 1.2840.114 350.1.13.10 4.2.7.2.686 [id number] [facility] 2022-10-20 00:00:00 2022-10-20 00:00:00 Orders Only Doctor Unassigned, [place] [facility] 1..840.114 350.1.13.10 4.2.7.2.686 [id number] [facility] 2022-10-12 13:15:00 2022-10-12 13:15:00 Outpatient R [facility] [id number] [facility] 2022-10-12 00:00:00 2022-10-12 00:00:00 Telephone Nataliia Dodson [facility] [employer] [facility] FILL [facility] CHILD [facility] 1..840.114 350.1.13.10 4.2.7.2.686 [id number] [facility] 2022-10-11 11:00:00 2022-10-11 11:15:00 Routine Visit Nataliia Dodson [facility] [employer] [facility] F[facility] CHILD [facility] 1..840.114 350.1.13.10 4.2.7.2.686 [id number] [facility] 2022-10-11 11:00:00 2022-10-11 11:00:00 Outpatient R NATALIIA DODSON [facility] [id number] [facility] 2022-10-07 14:00:00 2022-10-07 14:00:00 Outpatient YOLY AUSTIN [facility] [id number] [facility] 2022-10-06 10:45:00 2022-10-06 11:48:25 Outpatient YOLY AUSTIN [facility] [id number] [facility] 2022-10-06 10:45:00 2022-10-06 11:48:25 Routine Visit Provider, DylanYoly Manuel [facility] [employer] [facility] CHILD [facility] 1.2.840.114 350.1.13.10 4.2.7.2.686 [id number] [facility] 2022-10-04 15:30:00 2022-10-04 15:30:00 Outpatient R NATALIIA DODSON [facility] [id number] [facility] 2022-10-01 14:45:00 2022-10-01 15:40:54 Outpatient R NATALIIA DODSON [facility] [id number] [facility] 2022-10-01 14:45:00 2022-10-01 15:40:54 Routine Visit Nataliia Dodson [facility] [employer] F[facility] FILL [facility] MATERNAL & CHILD [facility] 1.2.840.114 350.1.13.10 4.2.7.2.686 [id number] [facility] 2022-09-16 16:00:00 2022-09-16 16:15:00 Routine Visit Nataliia Dodson [facility] [employer] [facility] FILL [facility] CHILD [facility] 1..840.114 350.1.13.10 4.2.7.2.686 [id number] [facility] 2022-09-16 16:00:00 2022-09-16 16:00:00 Outpatient R NATALIIA DODSON [facility] [id number] [facility] 2022-09-02 15:30:00 2022-09-02 15:44:03 Outpatient R NATALIIA DODSON [facility] [id number] [facility] 2022-09-02 15:30:00 2022-09-02 15:44:03 Routine Visit Nataliia Dodson [facility] [employer] [facility] FILL [facility] CHILD [facility] 1.2.840.114 350.1.13.10 4.2.7.2.686 [id number] [facility] 2022-08-20 10:30:00 2022-08-20 11:08:03 Outpatient R NATALIIA DODSON [facility] [id number] [facility] 2022-08-20 10:30:00 2022-08-20 11:08:03 Campus Administrative Assistant Visit Lab, Ang-Rmchp Nataliia Dodson [facility] [employer] [facility] CHILD [facility] 1.2.840.114 350.1.13.10 4.2.7.2.686 [id number] [facility] 2022-08-19 16:00:00 2022-08-19 16:44:59 Routine Visit Nataliia Dodson [facility] [employer] [facility] FILL [facility] CHILD [facility] 1.2.840.114 350.1.13.10 4.2.7.2.686 [id number] [facility] 2022-08-19 16:00:00 2022-08-19 16:44:59 Outpatient R NATALIIA DODSON [facility] [id number] [facility] 2022-08-06 15:15:00 2022-08-06 15:15:00 Outpatient P [facility] [id number] [facility] 2022-08-06 00:00:00 2022-08-06 00:00:00 Telephone Nataliia Dodson [facility] [employer] [facility] [id number] [facility] 2022-08-06 00:00:00 2022-08-06 00:00:00 Telephone Nataliia Dodson [facility] [facility] 1.2.840.114 350.1.13.10 4.2.7.2.686 [id number] [facility] 2022-08-05 13:00:00 2022-08-05 13:21:54 Routine Visit Nataliia Dodson [facility] 1.2.840.114 350.1.13.10 4.2.7.2.686 [id number] [facility] 2022-08-05 13:00:00 2022-08-05 13:21:54 Outpatient R NATALIIA DODSON [facility] [id number] [facility] 2022-08-05 13:00:00 2022-08-05 13:21:54 Outpatient R NATALIIA DODSON [facility] [id number] [facility] 2022-08-05 13:00:00 2022-08-05 13:00:00 Outpatient R NATALIIA DODSON [facility] [id number] [facility] 2022-07-20 00:00:00 2022-07-20 00:00:00 Abstract Nataliia Dodson [facility] [facility] 1..840.114 350.1.13.10 4.2.7.2.686 [id number] [facility] 2022-07-19 13:00:00 2022-07-19 13:31:46 Campus Administrative Assistant Visit Ultrasound, KeyannaLeola Alvarado [facility] [employer] FACE AND FILL [facility] & CHILD [facility] 1..840.114 350.1.13.10 4.2.7.2.686 [id number] [facility] 2022-07-19 13:00:00 2022-07-19 13:00:00 Outpatient P [facility] [id number] [facility] 2022-07-19 13:00:00 2022-07-19 13:00:00 Outpatient P LEOLA CHERY [facility] [id number] [facility] 2022-07-19 00:00:00 2022-07-19 00:00:00 Telephone Nataliia Dodson [facility] [employer] [facility] 1.0.114 350.1.13.10 4.2.7.2.686 [id number] [facility] 2022-07-05 15:30:00 2022-07-05 15:45:00 Routine Visit Nataliia Dodson [facility] [employer] FACE AND FILL [facility] CHILD [facility] 1.0.114 350.1.13.10 4.2.7.2.686 [id number] [facility] 2022-07-05 15:30:00 2022-07-05 15:30:00 Outpatient R NATALIIA DODSON [facility] [id number] [facility] 2022-07-05 15:30:00 2022-07-05 15:30:00 Outpatient R NATALIIA DODSON [facility] [id number] [facility] 2022-06-25 00:00:00 2022-06-25 00:00:00 Orders Only Doctor Unassigned, [place] [facility] 1.0.114 350.1.13.10 4.2.7.2.686 [id number] [facility] 2022-06-21 00:00:00 2022-06-21 00:00:00 Telephone Nataliia Dodson [facility] 1.0.114 350.1.13.10 4.2.7.2.686 [id number] [facility] 2022-06-18 14:45:00 2022-06-18 16:00:00 Campus Administrative Assistant Visit Ultrasound, Leatha Wall [facility] [employer] [facility] 1.840.114 350.1.13.10 4.2.7.2.686 [id number] [facility] 2022-06-18 14:45:00 2022-06-18 14:45:00 Outpatient P [facility] [id number] [facility] 2022-06-18 14:45:00 2022-06-18 14:45:00 Outpatient P LEATHA MICHELE [facility] [id number] [facility] 2022-06-18 00:00:00 2022-06-18 00:00:00 Abstract Nataliia Dodson [facility] [employer] FACE AND FILL [facility] & CHILD [facility] 1.2.840.114 350.1.13.10 4.2.7.2.686 [id number] [facility] 2022-06-11 00:00:00 2022-06-11 00:00:00 Telephone Doug Miller [facility] [employer] [facility] 1.2.840.114 350.1.13.10 4.2.7.2.686 [id number] [facility] 2022-06-07 12:45:00 2022-06-07 13:00:00 Routine Visit Nataliia Dodson [facility] [employer] [facility] 1.2.840.114 350.1.13.10 4.2.7.2.686 [id number] [facility] 2022-06-07 12:45:00 2022-06-07 12:45:00 Outpatient R NATALIIA DODSON [facility] [id number] [facility] 2022-06-03 16:00:00 2022-06-03 16:00:00 Outpatient R NATALIIA DODSON [facility] [id number] [facility] 2022-05-14 16:00:00 2022-05-14 16:35:28 Outpatient R NATALIIA DODSON [facility] [id number] [facility] 2022-05-14 16:00:00 2022-05-14 16:35:28 Routine Visit Nataliia Dodson [facility] [employer] FACE AND FILL [facility] & CHILD [facility] 1.2.840.114 350.1.13.10 4.2.7.2.686 [id number] [facility] 2022-05-14 00:00:00 2022-05-14 00:00:00 Orders Only Doctor Unassigned, [place] [facility] 1.2.840.114 350.1.13.10 4.2.7.2.686 [id number] [id number] [facility] 2022-05-10 00:00:00 2022-05-10 00:00:00 Patient Secure Msg Nataliia Dodson [facility] [employer] [facility] 1.2.840.114 350.1.13.10 4.2.7.2.686 [id number] [facility] 2022-04-30 00:00:00 2022-04-30 00:00:00 Patient Secure Msg Doctor Unassigned, [place] [facility] 1.2.840.114 350.1.13.10 4.2.7.2.686 [id number] [facility] 2022-04-30 00:00:00 2022-04-30 00:00:00 Patient Secure Msg Doctor Unassigned, [place] [facility] 1.2.840.114 350.1.13.10 4.2.7.2.686 [id number] [facility] 2022-04-30 00:00:00 2022-04-30 00:00:00 Nurse Triage Cecile Smith [facility] 1.2.840.114 350.1.13.10 4.2.7.2.686 [id number] [facility] 2022-04-30 00:00:00 2022-04-30 00:00:00 Nurse Triage Debra Graves [facility] 1.2.840.114 350.1.13.10 4.2.7.2.686 [id number] [facility] 2022-04-29 00:00:00 2022-04-29 00:00:00 Telephone Nataliia Dodson [facility] [employer] [facility] 1.2.840.114 350.1.13.10 4.2.7.2.686 [id number] [facility] 2022-04-28 00:00:00 2022-04-28 00:00:00 Nurse Triage Sarah, [facility] [place] [place] 1.2.840.114 350.1.13.10 4.2.7.2.686 [id number] [facility] 2022-04-20 00:00:00 2022-04-20 00:00:00 Patient Secure Msg Nataliia Dodson [facility] [employer] [facility] 1.2.840.114 350.1.13.10 4.2.7.2.686 [id number] [facility] 2022-04-16 15:30:00 2022-04-16 15:45:00 Routine Visit Nataliia Dodson [facility] [employer] [facility] 1.2.840.114 350.1.13.10 4.2.7.2.686 [id number] [facility] 2022-04-16 15:30:00 2022-04-16 15:30:00 Outpatient R NATALIIA DODSON [facility] [id number] [facility] 2022-04-14 00:00:00 2022-04-14 00:00:00 Abstract Nataliia Dodson [facility] [employer] [facility] 1.2.840.114 350.1.13.10 4.2.7.2.686 [id number] [facility] 2022-04-09 11:30:00 2022-04-09 12:00:00 Campus Administrative Assistant Visit Ultrasound, Janette Mckenzie [facility] [employer] [facility] 1.0.114 350.1.13.10 4.2.7.2.686 [id number] [facility] 2022-04-09 11:30:00 2022-04-09 11:30:00 Outpatient P [facility] [id number] [facility] 2022-04-09 11:30:00 2022-04-09 11:30:00 Outpatient P JANETTE THOMSON SHANNON [facility] [id number] [facility] 2022-03-26 00:00:00 2022-03-26 00:00:00 Patient Secure Msg Nataliia Dodson [facility] [facility]ILL [facility] 1.0.114 350.1.13.10 4.2.7.2.686 [id number] [facility] 2022-03-24 00:00:00 2022-03-24 00:00:00 Orders Only Doctor Unassigned, [place] [facility] 1.840.114 350.1.13.10 4.2.7.2.686 [id number] [facility] 2022-03-23 00:00:00 2022-03-23 00:00:00 Patient Secure Msg Chase Dodsonilola Christine [facility] [employer] F[facility] AND FILL [facility] CHILD [facility] 1.0.114 350.1.13.10 4.2.7.2.686 [id number] [facility] 2022-03-22 00:00:00 2022-03-22 00:00:00 Patient Secure Msg Chase Dodsonilola C [facility] [employer] [facility] 1.0.114 350.1.13.10 4.2.7.2.686 [id number] [facility] 2022-03-19 15:00:00 2022-03-19 15:52:14 Outpatient R NATALIIA DODSON [facility] [id number] [facility] 2022-03-19 15:00:00 2022-03-19 15:52:14 Initial Visit Nataliia Dodson [facility] [employer] FACE AND FILL [facility] MAT[facility] & CHILD [facility] 1.2.840.114 350.1.13.10 4.2.7.2.686 [id number] [facility] 2021-06-01 00:00:00 2021-06-01 00:00:00 Outpatient R AUDREY HAYDEN [facility] [id number] [facility] 2021-04-22 13:59:17 2021-04-22 15:04:16 Office Visit Audrey Hayden [facility] 1.2.840.114 350.1.13.10 4.2.7.2.686 [id number] [facility] 2021-04-22 14:00:00 2021-04-22 14:00:00 Outpatient Aga HAYDEN AUDREY [facility] [id number] [facility] Results Test Description Test Time Test Comments Results Result Co mments Source CULTURE, URINE 2023-12-23 09:26:56 SPECIMEN NUMBER: [id number] CULTURE, URINE SPECIMEN NUMBER: [id number] SOURCE: URINE REPORT STATUS: FINAL FINAL REPORT: 12/23/2023 10-50,000 CFU/ML UROGENITAL HAYDE PRESENT NO COMMON PATHOGENS UNLESS OTHERWISE INDICATED, ALL TESTING PERFORMED AT [facility] [address] [place] [address] SUSTAINABILITY MANAGER: MYLENE WAHL M.D. CLIA NUMBER [id number] [place]. [id number] Haseeb Forrester (D) IMMUNE [id number] 14:35:32* Test Item Value Reference Range Interpretation Comme nts RHIG CANDIDATE? (test code = 5055) No- see comment Patient is not a candidate for RhIg- Patient is Rh Positive.Performed at [facility] Laboratory Services - [facility] Blood [address] [place] [address]Kzha Free: [phone] No. [id number] [facility] IMMUNE [id number] 14:35:32* Test Item Value Reference Range Interpretation Comme nts RHIG CANDIDATE? (test code = 5055) No- see comment Patient is not a candidate for RhIg- Patient is Rh Positive.Performed at [facility] Laboratory Services - [facility] Blood [address] [place] [address]Lqjv Free: [phone] No. [id number] [facility] CORD [id number] 07:34:36* Test Item Value Reference Range Interpretation Comme nts BASE EXCESS, CORD (test code = 2878272772) mEq/L AC PH, CORD (BEAKER) (test code = 9163867808) 7.18-7.38 PC02, CORD (test code = 9105070290) See_Comment [Automated messa ge] The system which generated this result transmitted reference range: 32 - 66 mmHg. The reference range was not used to interpret this result as normal/abnormal. PO2, CORD (test code = 6752552111) See_Comment L [Automated messa ge] The system which generated this result transmitted reference range: 10 - 30 mmHg. The reference range was not used to interpret this result as normal/abnormal. BICARBONATE, CORD (test code = 7114078142) See_Comment [Automated me ssage] The system which generated this result transmitted reference range: 17 - 27 mEq/L. The reference range was not used to interpret this result as normal/abnormal. Lab Interpretation (test code = 36130-1) Abnormal [facility] CORD [id number] 07:34:36* Test Item Value Reference Range Interpretation Comme nts BASE EXCESS, CORD (test code = 1969059088) mEq/L AC PH, CORD (BEAKER) (test code = 2888308753) 7.18-7.38 PC02, CORD (test code = 2140400181) See_Comment [Automated messa ge] The system which generated this result transmitted reference range: 32 - 66 mmHg. The reference range was not used to interpret this result as normal/abnormal. PO2, CORD (test code = 7389321385) See_Comment L [Automated messa ge] The system which generated this result transmitted reference range: 10 - 30 mmHg. The reference range was not used to interpret this result as normal/abnormal. BICARBONATE, CORD (test code = 3568882348) See_Comment [Automated me ssage] The system which generated this result transmitted reference range: 17 - 27 mEq/L. The reference range was not used to interpret this result as normal/abnormal. Lab Interpretation (test code = 35327-5) Abnormal [facility] CORD [id number] 07:27:55* Test Item Value Reference Range Interpretation Comme nts VENOUS BASE EXCESS, CORD (test code = 5122343092) mEq/L VENOUS PH, CORD (test code = 5228820298) 7.25-7.45 VENOUS PC02, CORD (test code = 5828910406) See_Comment [Automated messa ge] The system which generated this result transmitted reference range: 27 - 49 mmHg. The reference range was not used to interpret this result as normal/abnormal. VENOUS PO2, CORD (test code = 0795383700) See_Comment [Automated me ssage] The system which generated this result transmitted reference range: 17 - 41 mmHg. The reference range was not used to interpret this result as normal/abnormal. VENOUS BICARBONATE, CORD (test code = 3911222182) See_Comment [Automated messa ge] The system which generated this result transmitted reference range: 12 - 29 mEq/L. The reference range was not used to interpret this result as normal/abnormal. [facility] CORD [id number] 07:27:55* Test Item Value Reference Range Interpretation Comme nts VENOUS BASE EXCESS, CORD (test code = 5682303961) mEq/L VENOUS PH, CORD (test code = 8418521970) 7.25-7.45 VENOUS PC02, CORD (test code = 4189398800) See_Comment [Automated messa ge] The system which generated this result transmitted reference range: 27 - 49 mmHg. The reference range was not used to interpret this result as normal/abnormal. VENOUS PO2, CORD (test code = 2834389906) See_Comment [Automated me ssage] The system which generated this result transmitted reference range: 17 - 41 mmHg. The reference range was not used to interpret this result as normal/abnormal. VENOUS BICARBONATE, CORD (test code = 5756002224) See_Comment [Automated messa ge] The system which generated this result transmitted reference range: 12 - 29 mEq/L. The reference range was not used to interpret this result as normal/abnormal. [facility] ONLY - SYPHILIS [id number] 16:01:05* Test Item Value Reference Range Interpretation Comme nts Syphilis IgG/IgM (test code = 12666-9) Non-reactive Non-reactive KELSI (test code = KELSI) Non-reactive - No serologic evidence of T. pallidum infection. Cannot exclude incubating or early syphilis. Submit a second specimen in 2-4 weeks if syphilis is clinically suspected. Equivocal - Further testing to follow. Reactive - Further testing to follow. Lab Interpretation (test code = 94166-1) Normal [facility] ONLY - SYPHILIS [id number] 16:01:05* Test Item Value Reference Range Interpretation Comme [facility] Syphilis IgG/IgM (test code = 54759-3) Non-reactive Non-reactive KELSI (test code = KELSI) Non-reactive - No serologic evidence of T. pallidum infection. Cannot exclude incubating or early syphilis. Submit a second specimen in 2-4 weeks if syphilis is clinically suspected. Equivocal - Further testing to follow. Reactive - Further testing to follow. Lab Interpretation (test code = 41586-4) Normal [facility] 1/2 AG-AB WITH [id number] 19:15:57* Test Item Value Reference Range Interpretation Comme [facility] HIV Semi-quantitative (test code = 54186-0) Negative Negative KELSI (test code = KELSI) Non-reactive for HIV-1 antigen and HIV-1/HIV-2 antibodies. ?No laboratory evidence of HIV infection. ?Repeat in 2-4 weeks if acute HIV infection is suspected. [facility] 1/2 AG-AB WITH [id number] 19:15:57* Test Item Value Reference Range Interpretation Comme nts HIV Semi-quantitative (test code = 35685-1) Negative Negative KELSI (test code = KELSI) Non-reactive for HIV-1 antigen and HIV-1/HIV-2 antibodies. ?No laboratory evidence of HIV infection. ?Repeat in 2-4 weeks if acute HIV infection is suspected. [facility] Surface [id number] 16:51:38 * Test Item Value Reference Range Interpretation Comme nts HBsAg Semi-Quantitative (apolonia t code = 5195-3) Negative Negative [facility] [id number] 16:51:38 * Test Item Value Reference Range Interpretation Comme nts HBsAg Semi-Quantitative (apolonia t code = 5195-3) Negative Negative [facility] [id number] 16:13:38 * Test Item Value Reference Range Interpretation Comme nts ABO & RH (test code = 20) A POSITIVE Performed at [facility] Laboratory [address] Free: [phone] No. [id number] IAT (test code = 1185) Negative Performed at [facility] Laboratory [address] Free: [phone] No. [id number] [facility] [id number] 16:13:38 * Test Item Value Reference Range Interpretation Comme nts ABO & RH (test code = 20) A POSITIVE Performed at [facility] Laboratory [address] Free: [phone] No. [id number] IAT (test code = 1185) Negative Performed at [facility] [address] Free: [phone] No. [id number] [facility] with [id number] 15:38:33* Test Item Value Reference Range Interpretation Comme nts WBC (test code = 6690-2) See_Comment [Automated messa ge] The system which generated this result transmitted reference range: 4.30 - 11.10 10*3/?L. The reference range was not used to interpret this result as normal/abnormal. RBC (test code = 789-8) See_Comment [Automated [employer] ge] The system which generated this result [...] 33.7 g/dL 31.6-35.1 RDW-SD (test code = 38834-4) 45.7 fL 39.0-49.9 RDW-CV (test code = 788-0) 16.0 % 12.0-15.5 H PLT (test code = 777-3) See_Comment [Automated [employer] ge] The system which generated this result transmitted reference range: 166 - 358 10*3/?L. The reference range was not used to interpret this result as normal/abnormal. MPV (test code = 73008-1) 10.8 fL 9.5-12.9 NRBC/100 WBC (test code = 9627080702) See_Comment [Automated [employer] ssage] The system which generated this result transmitted reference range: 0.0 - 10.0 /100 WBCs. The reference range was not used to interpret this result as normal/abnormal. NRBC x10^3 (test code = 4499633056) See_Comment [Automated [employer] ge] The system which generated this result transmitted reference range: 10*3/?L. The reference range was not used to interpret this result as normal/abnormal. GRAN MAT (NEUT) % (test code = 770-8) 74.6 % IMM GRAN % (test code = 6632578048) 0.60 % LYMPH % (test code = 736-9) 18.6 % MONO % (test code = 5905-5) 5.5 % EOS % (test code = 713-8) 0.5 % BASO % (test code = 706-2) 0.2 % GRAN MAT x10^3(ANC) (test code = 3919268429) 7.23 10*3/uL 1.88-7.09 H IMM GRAN x10^3 (test code = 4164950289) 0.06 10*3/uL 0.00-0.06 LYMPH x10^3 (test code = 731-0) 1.80 10*3/uL 1.32-3.29 MONO x10^3 (test code = 742-7) 0.53 10*3/uL 0.33-0.92 EOS x10^3 (test code = 711-2) 0.05 10*3/uL 0.03-0.39 BASO x10^3 (test code = 704-7) 0.01-0.07 Lab Interpretation (test code = 23440-5) Abnormal [facility] with [id number] 15:38:33* Test Item Value Reference Range Interpretation Comme nts WBC (test code = 6690-2) See_Comment [Automated [employer] ge] The system which generated this result transmitted reference range: 4.30 - 11.10 10*3/?L. The reference range was not used to interpret this result as normal/abnormal. RBC (test code = 789-8) See_Comment [Automated [employer] ge] The system which generated this result [...] 33.7 g/dL 31.6-35.1 RDW-SD (test code = 89936-6) 45.7 fL 39.0-49.9 RDW-CV (test code = 788-0) 16.0 % 12.0-15.5 H PLT (test code = 777-3) See_Comment [Automated messa ge] The system which generated this result transmitted reference range: 166 - 358 10*3/?L. The reference range was not used to interpret this result as normal/abnormal. MPV (test code = 27319-7) 10.8 fL 9.5-12.9 NRBC/100 WBC (test code = 7285576329) See_Comment [Automated [employer] ssage] The system which generated this result transmitted reference range: 0.0 - 10.0 /100 WBCs. The reference range was not used to interpret this result as normal/abnormal. NRBC x10^3 (test code = 9906665139) See_Comment [Automated messa ge] The system which generated this result transmitted reference range: 10*3/?L. The reference range was not used to interpret this result as normal/abnormal. GRAN MAT (NEUT) % (test code = 770-8) 74.6 % IMM GRAN % (test code = 1535097790) 0.60 % LYMPH % (test code = 736-9) 18.6 % MONO % (test code = 5905-5) 5.5 % EOS % (test code = 713-8) 0.5 % BASO % (test code = 706-2) 0.2 % GRAN MAT x10^3(ANC) (test code = 4681805109) 7.23 10*3/uL 1.88-7.09 H IMM GRAN x10^3 (test code = 3541380639) 0.06 10*3/uL 0.00-0.06 LYMPH x10^3 (test code = 731-0) 1.80 10*3/uL 1.32-3.29 MONO x10^3 (test code = 742-7) 0.53 10*3/uL 0.33-0.92 EOS x10^3 (test code = 711-2) 0.05 10*3/uL 0.03-0.39 BASO x10^3 (test code = 704-7) 0.01-0.07 Lab Interpretation (test code = 46272-8) Abnormal [facility] URINALYSIS W SPECIFIC [id number] 16:07:00* Test Item Value Reference Range Interpretation [...] . [facility] URINALYSIS W SPECIFIC [id number] 17:23:00* Test Item Value Reference Range Interpretation [...] .. [facility] URINALYSIS W SPECIFIC [id number] 17:04:00* Test Item Value Reference Range Interpretation [...] . [facility] URINALYSIS W SPECIFIC [id number] 17:04:00* Test Item Value Reference Range Interpretation [...] . [facility] URINALYSIS W SPECIFIC [id number] 21:10:00* Test Item Value Reference Range Interpretation [...] 3267) [facility] URINALYSIS W SPECIFIC [id number] 21:10:00* Test Item Value Reference Range Interpretation [...] 3267) [facility] URINALYSIS W SPECIFIC [id number] 21:13:00* Test Item Value Reference Range Interpretation [...] 3267) [facility] URINALYSIS W SPECIFIC [id number] 20:34:00* Test Item Value Reference Range Interpretation [...] U APPEAR (test code = 3267) clear [facility] ONLY - SYPHILIS [id number] 16:13:45* Test Item Value Reference Range Interpretation Comme nts Syphilis IgG/IgM (test code = 42741-0) Non-reactive Non-reactive KELSI (test code = KELSI) Non-reactive - No serologic evidence of T. pallidum infection. Cannot exclude incubating or early syphilis. Submit a second specimen in 2-4 weeks if syphilis is clinically suspected. Equivocal - Further testing to follow. Reactive - Further testing to follow. Lab Interpretation (test code = 58204-8) Normal [facility] 1/2 AG-AB WITH [id number] 05:55:09* Test Item Value Reference Range Interpretation Comme nts HIV Semi-quantitative (test code = 43469-5) Negative Negative KELSI (test code = KELSI) Non-reactive for HIV-1 antigen and HIV-1/HIV-2 antibodies. ?No laboratory evidence of HIV infection. ?Repeat in 2-4 weeks if acute HIV infection is suspected. [facility] Notes Date/Time Note Provider Source [facility]
[2025-02-16 12:55] LABS: Specific Gravity < 1.005 (1.005-1.030)
[2025-02-16 13:07] LABS: Specific Gravity < 1.005 (1.005-1.030); Sqamous Epithelial <5 /HPF (None Seen); Urine Bacteria 20-50 /HPF (<20); Urine Bilirubin NEGATIVE (Negative); Urine Blood Trace (Negative); Urine Clarity Extremely Turbid (Clear); Urine Color Colorless (Yellow); Urine Culture Reflex Order REFLEXED; Urine Glucose NEGATIVE (Negative); Urine Ketones NEGATIVE (Negative); Urine Microscopic Reflex YN ORDER UMIC; Urine Mucus Slight /HPF (None Seen); Urine Nitrite NEGATIVE (Negative); Urine Protein NEGATIVE (Negative); Urine RBC 21-50 /HPF (None Seen); Urine Urobilinogen Normal (Normal); Urine WBC >50 /HPF (<5); Urine Yeast (Budding) Few /HPF (None Seen); Urine pH 6.5 (5.0-7.0)
--- NOTE | 2025-02-16 13:14 | ER ---
Nurse's Notes [facility] Name: Neva Reyes Age: 25 yrs Sex: Female : 2000 Arrival Date: 02/16/2025 Time: 12:23 Bed 10 Private MD: Diagnosis: UTI/ Urinary tract infection, site not specified;Candidal balanitis Presentation: 02/16 12:33 Chief complaint: Patient states: vaginal itching and pain x4 days. pt also reports cm10 burning with urination. Coronavirus screen: Client denies travel out of the [place] in the last 14 days. Ebola Screen: Patient denies travel to an Ebola-affected area in the 21 days before illness onset. Initial Sepsis Screen: Does the patient meet any 2 criteria? No. Patient's initial sepsis screen is negative. Does the patient have a suspected source of infection? No. Patient's initial sepsis screen is negative. Risk Assessment: Do you want to hurt yourself or someone else? Patient reports no desire to harm self or others. Onset of symptoms was February 12, 2025. 12:33 Method Of Arrival: Ambulatory cm10 12:33 Acuity: HILDA 4 cm10 Triage Assessment: 12:35 General: Appears in no apparent distress. comfortable, Behavior is calm, cooperative. cm10 Neuro: No deficits noted. Level of Consciousness is awake, alert, obeys commands, Oriented to person, place, time, situation, Appropriate for age. Respiratory: No deficits noted. Airway is patent Respiratory effort is even, unlabored, Respiratory pattern is regular, symmetrical. 12:35 : Reports vaginal itching. cm10 Historical: - Allergies: 12:35 shrimp; cm10 - PMHx: 12:35 None; cm10 - PSHx: 12:35 section; cm10 - Immunization history:: Adult Immunizations up to date. - Infectious Disease History:: Denies. - Social history:: Smoking status: Patient denies any tobacco usage or history of. Vital Signs: 12:33 BP 107 / 67; Pulse 75; Resp 15; Temp 98.7; Pulse Ox 100% ; Weight 86.18 kg; Height 5 cm10 ft. 33 in. ; 12:33 Body Mass Index 15.44 (86.18 kg, 236.22 cm) cm10 ED Course: 12:25 Patient arrived in ED. mr 12:29 [place], [facility] 12:29 Bud Emanuel MD is Attending Physician. dr5 12:34 Triage completed. cm10 12:35 Arm band placed on right wrist. Patient placed in an exam room, on a stretcher. cm10 12:44 Test, Urine Sent. cm10 12:44 Urinalysis w/ reflexes Sent. cm10 12:45 Urine collected: clean catch specimen, cloudy. cm10 13:13 Joaquin Krishnan, RN is Primary Nurse. le1 Administered Medications: 13:20 Drug: Rocephin (cefTRIAXone) IM 1 grams IM once Route: IM; Site: right ventrogluteal; le1 13:20 Follow up: Response: No adverse reaction; Medication administered at discharge. le1 13:24 Follow up: Response: No adverse reaction; Medication Administered at Departure le1 Outcome: 13:14 Discharge ordered by . dr5 13:24 Patient left the ED. le1 Signatures: Roslyn Sanon, Omi Braga Gabriella Barone, RN RN cm10 Joaquin Krishnan, RN RN le1 Reji Green FNP-C INFORMATION SYSTEMS DIRECTOR-Cdr5
--- NOTE | 2025-02-16 13:14 | EDPHYS ---
Physician Documentation [facility] Name: Neva Reyes Age: 25 yrs Sex: Female : 2000 Arrival Date: 02/16/2025 Time: 12:23 Bed 10 Private MD: ED Physician Bud Emanuel HPI: 02/16 13:37 This 25 yrs old Female presents to ER via Ambulatory with complaints of dr5 Vaginal Itching, Vaginal Pain. 13:37 The patient presents with urinary symptoms, dysuria, frequency. Onset: The dr5 symptoms/episode began/occurred yesterday. Patient is a 25-year-old female known past medical history coming in with vaginal itching and dysuria as been going on for 1 day. Patient reports she took a homeopathic yeast infection medication that burned and has not helped symptoms. Patient denies fever.. Historical: - Allergies: 12:35 shrimp; cm10 - PMHx: 12:35 None; cm10 - PSHx: 12:35 section; cm10 - Immunization history:: Adult Immunizations up to date. - Infectious Disease History:: Denies. - Social history:: Smoking status: Patient denies any tobacco usage or history of. ROS: 13:37 Constitutional: as per hpi dr5 Exam: 13:37 Constitutional: This is a well developed, well nourished patient who is awake, alert, dr5 and in no acute distress. Head/Face: Normocephalic, atraumatic. Eyes: Pupils equal round and reactive to light, extra-ocular motions intact. Lids and lashes normal. Conjunctiva and sclera are non-icteric and not injected. Cornea within normal limits. Periorbital areas with no swelling, redness, or edema. Neck: Trachea midline, no thyromegaly or masses palpated, and no cervical lymphadenopathy. Supple, full range of motion without nuchal rigidity, or vertebral point tenderness. No Meningismus. Chest/axilla: Normal chest wall appearance and motion. Nontender with no deformity. No lesions are appreciated. Cardiovascular: Regular rate and rhythm with a normal S1 and S2. Normal PMI, no JVD. No pulse deficits. Respiratory: Lungs have equal breath sounds bilaterally, clear to auscultation. No rales, rhonchi or wheezes noted. No increased work of breathing, no retractions or nasal flaring. Back: No spinal tenderness. No costovertebral tenderness. Full range of motion. Skin: Warm, dry with normal turgor. Normal color with no rashes, no lesions, and no evidence of cellulitis. Neuro: Awake and alert, GCS 15, oriented to person, place, time, and situation. Cranial nerves II-XII grossly intact. Motor strength 5/5 in all extremities. Sensory grossly intact. Cerebellar exam normal. Normal gait. Vital Signs: 12:33 BP 107 / 67; Pulse 75; Resp 15; Temp 98.7; Pulse Ox 100% ; Weight 86.18 kg; Height 5 cm10 ft. 33 in. ; 12:33 Body Mass Index 15.44 (86.18 kg, 236.22 cm) cm10 MDM: 12:29 Medical Screening Exam initiated dr5 13:37 Differential diagnosis: urinary tract infection, vaginosis, Leonor. Data reviewed: dr5 vital signs, nurses notes, lab test result(s), urinalysis. I considered the following discharge prescriptions or medication management in the emergency department Medications were administered in the Emergency Department. See MAR. Care significantly affected by the following Social Determinants of Health: Poor access to healthcare and/or lack of insurance, Poor access to transportation, Problems related to employment. Counseling: I had a detailed discussion with the patient and/or guardian regarding the historical points, exam findings, and any diagnostic results supporting the discharge/admit diagnosis, the presence of at least one elevated blood pressure reading (>120/80) during this emergency department visit, lab results, the need for outpatient follow up, for definitive care, a family practitioner, to return to the emergency department if symptoms worsen or persist or if there are any questions or concerns that arise at home. ED course: Patient found to have urinary tract infection. Rocephin 1 g IM given in ER. Will send patient home with Keflex twice daily for a week. Will have patient take 1 Diflucan today and 1 more on completion of antibiotics. All questions answered. Strict ER precautions given. Follow-up with primary care doctor this week. 02/16 12:34 Order name: Urinalysis w/ reflexes; Complete Time: 13:07 dr5 02/16 12:34 Order name: Test, Urine; Complete Time: 12:56 dr5 02/16 13:10 Order name: Urine Culture EDMS Administered Medications: 13:20 Drug: Rocephin (cefTRIAXone) IM 1 grams IM once Route: IM; Site: right ventrogluteal; le1 13:20 Follow up: Response: No adverse reaction; Medication administered at discharge. le1 13:24 Follow up: Response: No adverse reaction; Medication Administered at Departure le1 Disposition Summary: 02/16/25 13:14 Discharge Ordered Notes: Location: Home dr5 Condition: Stable dr5 Diagnosis - UTI/ Urinary tract infection, site not specified dr5 - Candidal balanitis dr5 Followup: dr5 - With: Emergency Department - When: As needed - Reason: Worsening of condition Followup: dr5 - With: Private Physician - When: 1 - 2 days - Reason: Recheck today's complaints, Continuance of care, Re-evaluation by your physician Discharge Instructions: - Discharge Summary Sheet dr5 - Vaginal Yeast Infection, Adult dr5 - Urinary Tract Infection, Adult, [id number] dr5 Forms: - Medication Reconciliation Form dr5 - Antibiotic Education dr5 - Patient Portal Instructions dr5 - Leadership Thank You Letter dr5 Prescriptions: - Cephalexin 500 mg Oral Capsule - take 1 capsule ORAL route every 12 hours for 10 days; 20 capsule; Refills: 0, dr5 Product Selection Permitted - Fluconazole 150 mg Oral tablet - take 1 tablet ORAL route once daily for 1 day May repeat in 48 hours.; 2 dr5 tablet; Refills: 0, Product Selection Permitted Signatures: Dispatcher [employer] Gabriella Rivas, RN RN cm10 Joaquin Krishnan RN RN le1 Reji Green, ICE GUARD TESTER-C ICE GUARD TESTER-Cdr5
[2025-02-16] MEDS ORDERED: CEFTRIAXONE 1000 MG/VIAL ONE (13:15)
[2025-02-16] MEDS ORDERED: LIDOCAINE 1% MPF 5 ML VIAL ONE (13:16)
[2025-02-16 13:29] VITALS: BP 107/67; TEMP 98.7; O2SAT 100
== END 2025-02-16 13:24 | disposition home or self-care (01) ==
LOC: ER 12:23
DX: N39.0 Urinary tract infection, site not specified (principal); B37.89 Other sites of candidiasis
CPT/HCPCS: 87088; 81001; 87086; 81025; J2003; J0696; 96372; 99284